=== PATIENT | male | born 1980 | race Caucasian/White ===

== ENCOUNTER 2024-09-24 16:20 | Emergency (ER) | payer BC, OTHER, SELFPAY ==
--- NOTE | ~2024-09-24 | CT_ITS ---
CT abdomen pelvis w con Ordering provider: Anna Lemus PA-C History: 44 years Male with . epigastric pain . Comparison: None. Technique: CT abdomen and pelvis with IV and without oral contrast. Automated exposure control and it erative reconstruction technique were employed. The dose-length product was 410.40 mGy-cm. 100 mL Omn ipaque 350 was given IV. Findings: VISUALIZED LOWER CHEST: Tiny nodule near to the oblique fissure is seen in the left lung base measuri ng 4 mm. 6 months follow-up CT is advised. UPPER ABDOMINAL ORGANS: Liver: Cyst is seen in the right lobe measuring 2.8x 2.3 cm. Mild fat infiltration. Gallbladder: Status post cholecystectomy. Spleen: Normal. Measures 14.5 cm. Stomach/duodenum: Slight thickening of the wall of the third parts of the duodenum. Fat stranding als o seen between the head of the pancreas and the with RIYA none. Pancreas: Fat stranding is seen around the body and tail with fluid seen anterior to the Gerota fasci a suggestive of pancreatitis. Adrenals: Normal. Kidneys: Normal. PELVIC ORGANS: The bladder is normal. BOWEL AND MESENTERY: Colon: No evidence of diverticulitis. Normal appendix. Small Bowel: Slightly dilated jejunal bowel loops is noted otherwise, No obstruction. Peritoneum/mesentery: No free air. Minimal Free fluid around the Gerota fascia. No mesenteric lymphad enopathy. RETROPERITONEUM: Normal aorta. No retroperitoneal lymphadenopathy. MUSCULOSKELETAL: Superficial soft tissues: The superficial soft tissues are normal. Bones: Normal spine. IMPRESSION: 1. Acute Pancreatitis. Slight thickening of the wall of the duodenum with focal ileus in the proxima l jejunal loops is seen. 2. Cyst in the right lobe of the liver. 3. Nodule in the left lower lobe of the lung. Follow-up CT is advised at 6 months. Reviewed, dictated and finalized at location A. NG CLERK IMPRESSION: 1. Acute Pancreatitis. Slight thickening of the wall of the duodenum with foca l ileus in the proximal jejunal loops is seen. 2. Cyst in the right lobe of the liver. 3. Nodule in the left lower lobe of the lung. Follow-up CT is advised at 6 mon ths.
[2024-09-24 17:01] VITALS: BP 145/88; PULSE 128; RESP 18; TEMP 36.1; O2SAT 99
--- NOTE | 2024-09-24 18:30 | ED_ITS ---
HPI - Abdominal Pain General Chief Complaint: Abdominal Pain <DANI Harp Last Filed: 09/24/24 18:36> Stated Complaint: abdominal pain <DANI Harp Last Filed: 09/24/24 18:36> Time Seen by Provider: 09/24/24 18:30 <DANI Harp Last Filed: 09/24/24 18:36> Focused HPI: Patient is a 44-year-old male who presents the ED with report of epigastric abdominal pain. Patient reports pain has been constant over the last 1 week. He states he was treated for a migraine in a outside hospital last week and is unsure if this was related to the medicines that they gave him. He has had intermittent nausea and vomiting associated with this pain. He did try a leftover hydrocodone from a previous surgery which improved the pain. He intermittently takes pantoprazole for acid reflux, but tried this with this pain and denied improvement. He does note that his father this year from an ulcer. Patient denies any diarrhea, constipation, chest pain, shortness of breath, rectal bleeding, melena, fevers. GENERAL: Well-appearing, well-nourished, and in no acute distress. HEAD: Normocephalic, atraumatic. CHEST: Clear to auscultation. ?No respiratory distress. HEART: Regular rate and rhythm.? ABD: Mild TTP in epigastric/LUQ, no rebound. Normoactive BS NEURO: ?Alert and oriented x3. Patient screened in triage and initial orders placed.? ?Additional care and disposition to be based upon?diagnostic testing and treatment. <DANI Harp Last Filed: 09/24/24 18:36> Source: patient <DANI Harp Last Filed: 09/24/24 18:36> Mode of arrival: ambulatory <DANI Harp Last Filed: 09/24/24 18:36> Limitations: no limitations <DANI Harp Last Filed: 09/24/24 18:36> Related Data Allergies/Adverse Reactions: Allergies Allergy/AdvReac Type Severity Reaction Status Date / Time No Known Allergies Allergy Verified 09/24/24 16:21 <Anna Lemus PA-C - Last Filed: 09/24/24 18:36> Exam 2 Narrative: APPEARANCE: No apparent distress. well-appearing Head: atraumatic. EYES: EOMI, NOSE: Atraumatic NECK: Trachea midline RESPIRATORY: No increased rate of breathing clear to auscultation CARDIOVASCULAR: Tachycardic ABDOMINAL: Mild tenderness in the epigastric area without rebound MUSCULOSKELETAl: No obvious deformities NEURO: Alert. Moving 4/4 extremities SKIN:: Warm, dry. Normal color PSYCHIATRIC: Normal affect <Nii Arizmendi MD - Last Filed: 09/25/24 03:04> Course Vital Signs Vital signs: Vital Signs Temperature 97.0 F L 09/24/24 17:01 Pulse Rate 128 H 09/24/24 17:01 Respiratory Rate 18 09/24/24 17:01 Blood Pressure 145/88 H 09/24/24 17:01 Pulse Oximetry 99 09/24/24 17:01 Temperature 97.6 F 09/24/24 18:53 Pulse Rate 116 H 09/25/24 02:15 Respiratory Rate 15 09/25/24 02:15 Blood Pressure 136/78 09/25/24 02:15 Pulse Oximetry 100 09/25/24 02:15 <Anna Lemus PA-C - Last Filed: 09/24/24 18:36> Vital Signs Temperature 97.0 F L 09/24/24 17:01 Pulse Rate 128 H 09/24/24 17:01 Respiratory Rate 18 09/24/24 17:01 Blood Pressure 145/88 H 09/24/24 17:01 Pulse Oximetry 99 09/24/24 17:01 Temperature 97.6 F 09/24/24 18:53 Pulse Rate 116 H 09/25/24 02:15 Respiratory Rate 15 09/25/24 02:15 Blood Pressure 136/78 09/25/24 02:15 Pulse Oximetry 100 09/25/24 02:15 <Nii Arizmendi MD - Last Filed: 09/25/24 03:04> MDM - Abdominal Pain MDM Narrative Medical decision making narrative: MSE by EDWIN in triage. <DANI Harp Last Filed: 09/24/24 18:36> MSE by EDWIN in triage. -Course: 44-year-old male presenting with 1 week of abdominal pain. Patient's workup significant for pancreatitis. Patient was tachycardic on arrival and fluid resuscitation/pain control mild improvement. Patient states that he is always tachycardic around 120 and verified this on his applewatch. White count also elevated at 19. Patient was recently started on Farxiga which is associated with pancreatitis and he has had pancreatitis past that was associated with hypertriglyceridemia. I recommended admission and the patient has declined. 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 I spoke with patient length regards my concerns about his abnormal vital signs and laboratory studies. The patient states he understands but was not concerned because he was feeling better. He says that if he gets worse he will come back. Risks were explained patient encouraged him to return to the ED as soon as possible for further workup of his pancreatitis. Patient voices understanding and is leaving against medical advice. patient says he will follow-up with his primary care physician -DDX includes but is not limited to: Pancreatitis, gastritis, peptic ulcer disease -Co-morbidities complicating care: diabetes, migraines, pancreatitis -Independent interpretation of studies: white count 19, lipase 1900, CT with evidence of acute pancreatitis Independent EKG interpretation: Rhythm [sinus], Rate [122], [place] -[normal], MA -[normal], QRS [narrow], QTC [normal], T waves -[negative for concerning inversions], ST Segments - [Negative for concerning elevations] Final interpretations: sinus tachycardia -Interventions: 1mg Dilaudid, 3 L normal saline -Shared decision making / Disposition: against medical advice -RX Tylenol, oxycodone <Nii Arizmendi MD - Last Filed: 09/25/24 03:04> Lab Data Result diagrams: 09/24/24 18:55 09/24/24 22:07 <Anna Lemus PA-C - Last Filed: 09/24/24 18:36> Labs: Lab Results 09/24/24 09/24/24 09/24/24 Range/Units 18:55 19:02 22:07 WBC 19.7 H (4.5-10.0) K/mm3 RBC 4.55 L (4.6-6.20) M/mm3 Hgb 14.0 (14.0-18.0) g/dL Hct 38.5 L (42.0-52.0) % MCV 84.6 (80-100) fl MCH 30.8 (26-34) pg MCHC 36.4 H (32-36) g/dl RDW 14.3 (11.5-14.5) % Plt Count 278 (150-375) k/mm3 MPV 9.7 (7.4-10.4) fl Immature Gran % (Auto) 0.7 H (0-0.5) % Neut % (Auto) 83.5 H (45.5-73.1) % Lymph % (Auto) 6.5 L (18.3-44.2) % [place] % (Auto) 8.2 (2.6-8.5) % Eos % (Auto) 0.6 (0-4.4) % Baso % (Auto) 0.5 (0.2-1.2) % Lymph # (Auto) 1.28 (0.9-3.2) K/mm3 [place] # (Auto) 1.6 H (0.1-0.6) K/mm3 Eos # (Auto) 0.1 (0-0.3) K/mm3 Baso # (Auto) 0.1 (0.0-0.1) K/mm3 Abs Immat Gran (auto) 0.13 H (0.00-0.031) K/mm3 Absolute Neuts (auto) 16.5 H (1.3-6.7) K/mm3 Absolute Nucleated RBC 0.000 (0.0-0.012) K/mm3 Nucleated RBC % 0.0 (0.0-0.2) % Sodium 133 L (137-145) mmol/L Potassium 4.3 (3.4-5.0) mmol/L Chloride 100 (98-107) mmol/L Carbon Dioxide 19 L (22-30) mmol/L Anion Gap 14 H (4-12) mmol/L BUN 10 (9-20) mg/dL Creatinine 0.60 L (0.7-1.3) mg/dL Estim Creat Clear Calc 126 ml/min Estimated GFR > 60 (59 - ) Glucose 101 (65-110) mg/dL Calcium 9.4 (8.4-10.2) mg/dL Total Bilirubin 1.5 H (0.2-1.3) mg/dL AST 48 (17-59) U/L ALT 22 (6-50) U/L Alkaline Phosphatase 68 (38-126) U/L Troponin I < 0.012 (0.000-0.034) ng/mL Total Protein 9.0 H (6.3-8.2) g/dL Albumin 3.8 (3.5-5.1) g/dL Lipase 1899 H (23-300) U/L Urine Color Yellow (Yellow) Urine Appearance Clear (Clear) Urine pH 5.5 (5.0-9.0) Ur Specific [place] 1.038 H (1.001-1.035) Urine Protein 2+ H (Negative) mg/dL Urine Glucose (UA) 3+ H (Negative) mg/dL Urine Ketones 2+ H (Negative) mg/dL Ur Blood (Man) 1+ H (Negative) Urine Nitrate Negative (Negative) Urine Bilirubin Negative (Negative) Urine Urobilinogen 1.0 (<2.0) mg/dL Leukocyte Esterase Rfl Negative (Negative) JOHANNA/UL Urine RBC 0-2 (0-2) /hpf Urine WBC 0-5 (0-3) /hpf Ur Squamous Epith Cells None seen (Few) /hpf Urine Bacteria None seen /hpf Urine Casts 3-5 <Anna Lemus PA-C - Last Filed: 09/24/24 18:36> Lab Results 09/24/24 09/24/24 09/24/24 Range/Units 18:55 19:02 22:07 WBC 19.7 H (4.5-10.0) K/mm3 RBC 4.55 L (4.6-6.20) M/mm3 Hgb 14.0 (14.0-18.0) g/dL Hct 38.5 L (42.0-52.0) % MCV 84.6 (80-100) fl MCH 30.8 (26-34) pg MCHC 36.4 H (32-36) g/dl RDW 14.3 (11.5-14.5) % Plt Count 278 (150-375) k/mm3 MPV 9.7 (7.4-10.4) fl Immature Gran % (Auto) 0.7 H (0-0.5) % Neut % (Auto) 83.5 H (45.5-73.1) % Lymph % (Auto) 6.5 L (18.3-44.2) % [place] % (Auto) 8.2 (2.6-8.5) % Eos % (Auto) 0.6 (0-4.4) % Baso % (Auto) 0.5 (0.2-1.2) % Lymph # (Auto) 1.28 (0.9-3.2) K/mm3 [place] # (Auto) 1.6 H (0.1-0.6) K/mm3 Eos # (Auto) 0.1 (0-0.3) K/mm3 Baso # (Auto) 0.1 (0.0-0.1) K/mm3 Abs Immat Gran (auto) 0.13 H (0.00-0.031) K/mm3 Absolute Neuts (auto) 16.5 H (1.3-6.7) K/mm3 Absolute Nucleated RBC 0.000 (0.0-0.012) K/mm3 Nucleated RBC % 0.0 (0.0-0.2) % Sodium 133 L (137-145) mmol/L Potassium 4.3 (3.4-5.0) mmol/L Chloride 100 (98-107) mmol/L Carbon Dioxide 19 L (22-30) mmol/L Anion Gap 14 H (4-12) mmol/L BUN 10 (9-20) mg/dL Creatinine 0.60 L (0.7-1.3) mg/dL Estim Creat Clear Calc 126 ml/min Estimated GFR > 60 (59 - ) Glucose 101 (65-110) mg/dL Calcium 9.4 (8.4-10.2) mg/dL Total Bilirubin 1.5 H (0.2-1.3) mg/dL AST 48 (17-59) U/L ALT 22 (6-50) U/L Alkaline Phosphatase 68 (38-126) U/L Troponin I < 0.012 (0.000-0.034) ng/mL Total Protein 9.0 H (6.3-8.2) g/dL Albumin 3.8 (3.5-5.1) g/dL Lipase 1899 H (23-300) U/L Urine Color Yellow (Yellow) Urine Appearance Clear (Clear) Urine pH 5.5 (5.0-9.0) Ur Specific [place] 1.038 H (1.001-1.035) Urine Protein 2+ H (Negative) mg/dL Urine Glucose (UA) 3+ H (Negative) mg/dL Urine Ketones 2+ H (Negative) mg/dL Ur Blood (Man) 1+ H (Negative) Urine Nitrate Negative (Negative) Urine Bilirubin Negative (Negative) Urine Urobilinogen 1.0 (<2.0) mg/dL Leukocyte Esterase Rfl Negative (Negative) JOHANNA/UL Urine RBC 0-2 (0-2) /hpf Urine WBC 0-5 (0-3) /hpf Ur Squamous Epith Cells None seen (Few) /hpf Urine Bacteria None seen /hpf Urine Casts 3-5 <Nii Arizmendi MD - Last Filed: 09/25/24 03:04> Imaging Data Radiologist's impression: ITS Impressions Abdomen/Pelvis CT 09/24/24 23:31 IMPRESSION: 1. Acute Pancreatitis. Slight thickening of the wall of the duodenum with focal ileus in the proximal jejunal loops is seen. 2. Cyst in the right lobe of the liver. 3. Nodule in the left lower lobe of the lung. Follow-up CT is advised at 6 months. <Anna Lemus PA-C - Last Filed: 09/24/24 18:36> ITS Impressions Abdomen/Pelvis CT 09/24/24 23:31 IMPRESSION: 1. Acute Pancreatitis. Slight thickening of the wall of the duodenum with focal ileus in the proximal jejunal loops is seen. 2. Cyst in the right lobe of the liver. 3. Nodule in the left lower lobe of the lung. Follow-up CT is advised at 6 months. <Nii Arizmendi MD - Last Filed: 09/25/24 03:04> Discharge Plan Discharge Clinical Impression: Pancreatitis, Leukocytosis <DANI Harp Last Filed: 09/24/24 18:36> Patient Disposition: Left Against Medical Advice <Anna Lemus PA-C - Last Filed: 09/24/24 18:36> Condition: Stable <Anna Lemus PA-C - Last Filed: 09/24/24 18:36> Instructions: Antibiotic Form, Pancreatitis (ED) <Anna Lemus PA-C - Last Filed: 09/24/24 18:36> Additional Instructions: You were seen in the emergency department for abdominal pain. You have pancreatitis. I recommended admission to the hospital but due to your work situation you have declined admission. You can take oxycodone for pain and Zofran for nausea. If your pain is worsening it is very important that you come back to the ED immediately. I would encourage you to return to the ED for admission as soon as possible for further workup of your pancreatitis. <Anna Lemus PA-C - Last Filed: 09/24/24 18:36> Patient Language: Indonesian <Anna Lemus PA-C - Last Filed: 09/24/24 18:36> Prescriptions: New acetaminophen 500 mg tablet 1,000 mg PO TID PRN (Reason: christopher) 7 Days Qty: 42 0RF ondansetron 4 mg tablet,disintegrating 4 mg PO Q8H PRN (Reason: nausea and vomiting) Qty: 30 0RF oxycodone 5 mg tablet 5 mg PO Q4H PRN (Reason: pain) Qty: 14 0RF <Anna Lemus PA-C - Last Filed: 09/24/24 18:36> Follow-up/Referrals: Saige,Preston Berumen PA-C [Primary Care Provider] - <Anna Lemus PA-C - Last Filed: 09/24/24 18:36>
--- NOTE | 2024-09-24 18:32 | ECG_ITS ---
Test Date: 2024-09-24 18:46:55 Measurements Intervals [place] Rate: 122 P: 36 MD: 167 QRS: 6 QRSD: 72 T: 32 QT: 297 QTc: 423 Interpretive Statements SINUS TACHYCARDIA NONSPECIFIC ST & T-WAVE ABNORMALITY ABNORMAL RHYTHM ECG No previous ECG available for comparison Electronically Signed On 09-25-2024 22:55:28 COURTESY BUS DRIVER by Odalys Mcfarlane M.D.
[2024-09-24 18:53] VITALS: BP 156/99; PULSE 125; RESP 18; TEMP 36.4; O2SAT 99
[2024-09-24] MEDS: FAMOTIDINE 20 MG/2 ML VIAL IV PUSH (18:53)
[2024-09-24] MEDS: BELLADONNA ALK/PHENOB ELIX 10 ML, MAG HYDROX/ALUMINUM HYD/SIMETH 30 ML, LIDOCAINE 2% VI... PO (18:53)
[2024-09-24 19:18] LABS: Basophils Absolute Auto 0.1 K/mm3 (0.0-0.1); Basophils Percent Auto 0.5 % (0.2-1.2); Eosinophils Absolute Auto 0.1 K/mm3 (0-0.3); Eosinophils Percent Auto 0.6 % (0-4.4); Hematocrit 38.5 % (42.0-52.0); Immature Granulocyte Absolute 0.13 K/mm3 (0.00-0.031); Immature Granulocyte Percent A 0.7 % (0-0.5); Lymphocytes Absolute Auto 1.28 K/mm3 (0.9-3.2); Lymphocytes Percent Auto 6.5 % (18.3-44.2); Mean Corpuscular HGB Conc 36.4 g/dl (32-36); Mean Corpuscular Hemoglobin 30.8 pg (26-34); Mean Corpuscular Volume 84.6 fl (80-100); Mean Platelet Volume 9.7 fl (7.4-10.4); Monocytes Absolute Auto 1.6 K/mm3 (0.1-0.6); Monocytes Percent Auto 8.2 % (2.6-8.5); Neutrophils Absolute Auto 16.5 K/mm3 (1.3-6.7); Neutrophils Percent Auto 83.5 % (45.5-73.1); Platelet Count Result 278 k/mm3 (150-375); Red Blood Count 4.55 M/mm3 (4.6-6.20); Red Cell Distribution Width 14.3 % (11.5-14.5); White Blood Count 19.7 K/mm3 (4.5-10.0)
[2024-09-24 19:43] LABS: Troponin I < 0.012 ng/mL (0.000-0.034)
[2024-09-24 20:06] LABS: Add Urine Microscopic? YES; Appearance Urine Clear (Clear); Bacteria Urine None Seen /hpf; Bilirubin Urine Negative (Negative); Blood Urine 1+ (Negative); Color Urine Yellow (Yellow); Glucose Urine UA 3+ mg/dL (Negative); Ketones Urine 2+ mg/dL (Negative); Leukocyte Esterase Ur Negative LEU/UL (Negative); Nitrate Urine Negative (Negative); Protein Urine 2+ mg/dL (Negative); RBC Urine 0-2 /hpf (0-2); Specific Grav Ur 1.038 (1.001-1.035); Squamous Epithelial Cell Urine None Seen /hpf (Few); WBC Urine 0-5 /hpf (0-3); pH Urine 5.5 (5.0-9.0)
[2024-09-24 22:59] LABS: Alanine Aminotransferase 22 U/L (6-50); Albumin Level 3.8 g/dL (3.5-5.1); Alkaline Phosphatase 68 U/L (38-126); Anion Gap 14 mmol/L (4-12); Aspartate Amino Transferase 48 U/L (17-59); Bilirubin,Total 1.5 mg/dL (0.2-1.3); Blood Urea Nitrogen 10 mg/dL (9-20); Calcium 9.4 mg/dL (8.4-10.2); Carbon Dioxide 19 mmol/L (22-30); Chloride 100 mmol/L (98-107); Estimated CRCL calculation 126 ml/min; Estimated Glomerular Filt Rate > 60; Glucose 101 mg/dL (65-110); Potassium 4.3 mmol/L (3.4-5.0)
[2024-09-24 23:01] LABS: Sodium 133 mmol/L (137-145)
[2024-09-24 23:04] LABS: Lipase 1899 U/L (23-300)
[2024-09-25] MEDS: SODIUM CHLORIDE 0.9% IV 3,000 ML 999 ML IV CONT (02:10)
[2024-09-25] MEDS: HYDROmorphone HCL INJ (*CRX) 1 MG/ML SYR IV PUSH (02:11)
[2024-09-25 02:15] VITALS: BP 136/78; PULSE 116; RESP 15; O2SAT 100
[2024-09-25 03:14] VITALS: BP 128/78; PULSE 121; RESP 15; O2SAT 100
--- OUTSIDE RECORDS SUMMARY | 2024-10-02 02:32 | XMS_ITS | Encounter Summary ---
Author Organization [facility] Address [address] [place] [address] Care Team Providers Care Air Carrier Inspector Name Role Phone Darius Meyer MD Primary Care Provider [phone] Reason for Visit * Reason Comments Anxiety Encounter Details Date Type Department Care Team (Latest Contact Info) Description 03/12/2021 10:00 AM CDT Office Visit [facility] Medical [facility] - Family Medicine [address] [place] [id number] Darius Meyer MD [address] [place] [id number] Palpitations (Primary Dx); Dyslipidemia; Elevated triglycerides with high cholesterol; Snoring Social History Tobacco Use Types Packs/Day Years Used Date Smoking Tobacco: Never Smokeless Tobacco: Former Quit: 03/05/2018 Alcohol Use Standard Drinks/Week Comments Not Currently 0 (1 standard drink = 0.6 oz pur e alcohol) rarely PHQ-2 Answer Date Recorded PHQ2 TOTAL SCORE 3 03/12/2021 Sex and Gender Information Value Date Recorded Sex Assigned at Male 10/10/2021 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 No / Unsure 03/11/2021 8:15 AM CDT documented as of this encounter Last Filed Vital Signs Vital Sign Reading Time Taken Comments Blood Pressure 128/87 03/12/2021 9:59 AM CDT Pulse 90 03/12/2021 9:59 AM CDT Temperature 36.9 ??C (98.4 ??F) 03/12/2021 9:59 AM CD T Respiratory Rate - - Oxygen Saturation 97% 03/12/2021 9:59 AM CDT Inhaled Oxygen Concentration - - Weight 74.8 kg (165 lb) 03/12/2021 9:59 AM CDT Height 172.7 cm (5' 8 ) 03/12/2021 9:59 AM CDT Body Mass Index 25.09 03/12/2021 9:59 AM CDT documented in this encounter Progress Notes * Draius Meyer MD - 03/12/2021 10:05 AM CDT Date: 03/12/2021 Pt Name: Chadwick Holcomb : 1980 AGE: [id number] year old SEX: male SUBJECTIVE: Chief Complaint Patient presents with ??? Anxiety History of Present Illness:Chadwick Holcomb 40 year old male presents to clinic today : For follow-up. He states he is much better PHQ has improved as well. Patient's labs were discussed especially the triglycerides. The patient states eating greasy tacos the night before the test The patient admits that he snores at night but denies any apneic events or excessive sleepiness during the day however was interested in getting an ENT evaluation for possible tolerated tonsillar enlargement as he sometimes chokes on water and food but happens infrequently Patient states that sometimes he has palpitations which are not bothersome but wanted to have his heart checked No Known Allergies No outpatient medications prior to visit. No facility-administered medications prior to visit. No past medical history on file. No past surgical history on file. Family History Problem Relation Name Age of Onset ??? Cancer - Breast Mother ??? Diabetes; unknown type Mother ??? Alcohol abuse Father ??? Hypertension Brother Social History Socioeconomic History ??? Marital status: Single Spouse name: Not on file ??? Number of children: Not on file ??? Years of education: Not on file ??? Highest education level: Not on file Occupational History ??? Not on file Tobacco Use ??? Smoking status: Never Smoker ??? Smokeless tobacco: Former User Vaping Use ??? Vaping Use: Never used Substance and Sexual Activity ??? Alcohol use: Not Currently Comment: rarely ??? Drug use: Never ??? Sexual activity: Not on file Other Topics Concern ??? Not on file Social History Narrative ??? Not on file ROS: Pertinent items are noted in HPI Review of Systems Respiratory: Negative. Cardiovascular: Positive for palpitations. Gastrointestinal: Negative. Psychiatric/Behavioral: Positive for depression. The patient is nervous/anxious and has insomnia. OBJECTIVE: BP 128/87 Pulse 90 Temp 98.4 ??F (36.9 ??C) (Temporal) Ht 1.727 m (5' 8 ) Wt 74.8 kg (165 lb) SpO2 97% BMI 25.09 kg/m?? PHYSICAL EXAM: BP 128/87 Pulse 90 Temp 98.4 ??F (36.9 ??C) (Temporal) Ht 1.727 m (5' 8 ) Wt 74.8 kg (165 lb) SpO2 97% BMI 25.09 kg/m2 Physical Exam Constitutional: Comments: Patient has class 3 Mallampati scoring Cardiovascular: Rate and Rhythm: Normal rate and regular rhythm. Pulmonary: Effort: Pulmonary effort is normal. Breath sounds: Normal breath sounds. Abdominal: General: Abdomen is flat. There is no distension. Palpations: Abdomen is soft. There is no mass. Tenderness: There is no abdominal tenderness. There is no right CVA tenderness, left CVA tenderness, guarding or rebound. Hernia: No hernia is present. ASSESSMENT/PLAN ICD-10-CM 1. Palpitations R00.2 EKG 12-LEAD 2. Dyslipidemia E78.5 LIPID PROFILE 3. Elevated triglycerides with high cholesterol E78.2 LIPID PROFILE 4. Snoring R06.83 AMB REFERRAL TO ENT Results discussed with the patient in person. He admits to eating greasy food the day before the test. Side effect of elevated triglycerides such as pancreatitis discussed with the patient. Starting gemfibrozil verses repeating the lipid test discussed with the patient. it was agreed that given thepatient does not have any history of pancreatitis, does not have any epigastric pain currently, is not an alcoholic, he is at low risk for pancreatitis. Will repeat that blood test and if triglycerides continue to be above 800, will prescribe gemfibrozil, as agreed upon by the patient. PLAN: Orders Placed This Encounter ??? LIPID PROFILE ??? AMB REFERRAL TO ENT ??? EKG 12-LEAD Return if symptoms worsen or fail to improve. Darius Meyer MD Time spent with patient was about 50 minutes documented in this encounter Miscellaneous Notes * Addendum Note - Darius Meyer MD - 03/19/2021 10:37 AM CDTAddended by: DARIUS MEYER on: 03/19/2021 10:37 AM Modules accepted: Level of Service * Addendum Note - Darius Myeer MD - 03/18/2021 9:11 AM CDTAddended by: DARIUS MEYER on: 03/18/2021 09:11 AM Modules accepted: Level of Service documented in this encounter Plan of Treatment Not on file documented as of this encounter Visit Diagnoses Diagnosis Palpitations- Primary Dyslipidemia Other and unspecified hyperlipidemia Elevated triglycerides with high cholesterol Mixed hyperlipidemia Snoring Other dyspnea and respiratory abnormality documented in this encounter Care Teams Air Carrier Inspector Relationship Specialty Start Date End Date Darius Meyer MD [address] [place] [address] PCP - General Internal Medicine 03/05/21 documented as of this encounter
--- OUTSIDE RECORDS SUMMARY | 2024-10-02 02:32 | XMS_ITS | Encounter Summary ---
Author Organization [facility] Address [address] [place] [address] Care Team Providers Care Machine Operator Hop Picker Name Role Phone Unavailable Primary Care Provider Unavailabl e Encounter Details Date Type Department Care Team (Late st Contact Info) Description 03/04/2021 9:40 AM CDT Ancillary Procedure [facility] [address] [place] [phone] Jean Carlos Hensley PA [address] Cantrell Attn: [place] [address] Elevated blood pressure reading without diagnosis of hypertension Social History Tobacco Use Types Packs/Day Years Used Date Smoking Tobacco: Never Smokeless Tobacco: Never Alcohol Use Standard Drinks/Week Comments Not Currently 0 (1 standard drink = 0.6 oz pur e alcohol) Sex and Gender Information Value Date Recorded Sex Assigned at Male 10/10/2021 1:14 AM SYRUP BLENDER Gender Identity Male 10/10/2021 1:14 AM SYRUP BLENDER Sexual Orientation Not on file COVID-19 Exposure Response Date Recorded In the last month, have you been in contact with someone who was confirmed or suspected to have Coronavirus / COVID-19? No / Unsure 03/04/2021 9:03 AM CDT documented as of this encounter Plan of Treatment Not on file documented as of this encounter Procedures Procedure Name Priority Date/Time Associated Diagnosis Comments XR CHEST 2VW Routine 03/04/2021 9:48 AM CDT Elevated blood pressure reading without diagnosis of hypertension documented in this encounter Results * XR CHEST 2 VWS PA [place] LAT [id number] (03/04/2021 9:48 AM CDT) Anatomical Region Laterality Modality Chest Radiographic Marcie ging 03/04/2021 9:5 6 AM CDT Impressions 03/04/2021 9:56 AM CDT The chest is within normal limits. *Reading Radiologist: Saba Nunez on 03/04/2021 at 9:56 AM Narrative 03/04/2021 9:56 AM CDT PROCEDURE: XR CHEST 2VW ??03/04/2021 9:56 AM FINDINGS AND IMPRESSION: HISTORY: Elevated blood-pressure reading, without diagnosis of hypertension. COMPARISON: 02/21/2009. FINDINGS: Two views of the chest show no evidence of pulmonary disease. The heart and mediastinum are within normal limits. The diaphragms are smooth and the costophrenic angles are clear. The lungs are radiographically clear. Bony thorax is normal. Procedure Note Saba Nunez MD - 03/04/2021 PROCEDURE: XR CHEST 2VW 03/04/2021 9:56 AM FINDINGS AND IMPRESSION: HISTORY: Elevated blood-pressure reading, without diagnosis of hypertension. COMPARISON: 02/21/2009. FINDINGS: Two views of the chest show no evidence of pulmonary disease. The heart and mediastinum are within normal limits. The diaphragms are smooth and the costophrenic angles are clear. The lungs are radiographically clear. Bony thorax is normal. IMPRESSION The chest is within normal limits. *Reading Radiologist: Saba Nunez on 03/04/2021 at 9:56 AM [facility] documented in this encounter Visit Diagnoses Diagnosis Elevated blood pressure reading without diagnosis of hypertension documented in this encounter
--- OUTSIDE RECORDS SUMMARY | 2024-10-02 02:32 | XMS_ITS | Encounter Summary ---
Author Organization [facility] Health Address [address] [place] [address] Care Team Providers Care Tour Coordinator Name Role Phone Unavailable Primary Care Provider Unavailabl e Encounter Details Date Type Department Care Team (Latest Contact Info) Description 03/04/2021 Travel Social History Tobacco Use Types Packs/Day Years Used Date Smoking Tobacco: Never Smokeless Tobacco: Never Alcohol Use Standard Drinks/Week Comments Not Currently 0 (1 standard drink = 0.6 oz pur e alcohol) Sex and Gender Information Value Date Recorded Sex Assigned at Male 10/10/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 No / Unsure 03/04/2021 9:03 AM CDT documented as of this encounter Plan of Treatment Not on file documented as of this encounter Visit Diagnoses Not on filedocumented in this encounter
--- OUTSIDE RECORDS SUMMARY | 2024-10-02 02:32 | XMS_ITS | Encounter Summary ---
Author Organization [facility] Address [address] [place] [address] Care Team Providers Care Electronics Detail Draftsperson Name Role Phone Nenita Sexton MD Primary Care Provider [phone] Encounter Details Date Type Department Care Team (Latest Contact Info) Description 03/11/2021 8:15 AM CDT - 03/11/2021 11:59 PM CDT Hospital Encounter [facility] - Laboratory [address] [place] [address] [phone] Nenita Sexton MD [address] [place], [place] [phone] Discharge Disposition: Home or Self Care Social History Tobacco Use Types Packs/Day Years Used Date Smoking Tobacco: Never Smokeless Tobacco: Former Quit: 03/05/2018 Alcohol Use Standard Drinks/Week Comments Not Currently 0 (1 standard drink = 0.6 oz pur e alcohol) rarely PHQ-2 Answer Date Recorded PHQ2 TOTAL SCORE 3 03/12/2021 Sex and Gender Information Value Date Recorded Sex Assigned at Male 10/10/2021 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 No / Unsure 03/11/2021 8:15 AM CDT documented as of this encounter Progress Notes * Nenita Sexton MD - 03/11/2021 11:59 PM CDT Results discussed with the patient in person. He admits to eating greasy food yesterday. Side effect of elevated triglycerides such as pancreatitis discussed with the patient. Starting gemfibrozil verses repeating the lipid test discussed with the patient. it was agreed that given the patient does not have any history of pancreatitis, does not have any epigastric pain currently, is not an alcoholi c, he is at low risk for pancreatitis. Will repeat that blood test and if triglycerides continue prakash above 800, will prescribe gemfibrozil, as agreed upon by the patient. documented in this encounter Plan of Treatment Not on file documented as of this encounter Procedures Procedure Name Priority Date/Time Associated Diagnosis Comments HEMOGLOBIN A1C Routine 03/11/2021 8:16 AM CDT Elevated glucose LIPID PROFILE Routine 03/11/2021 8:16 AM CDT Elevated glucose documented in this encounter Results * HEMOGLOBIN A1C (03/11/2021 8:16 AM CDT) Hemoglobin A1c 5.2 4.2 - 5.6 % 03/11/2021 1:10 PM CDT [facility] Estimated Average Glucose 103 mg/dL 03/11/2021 1:10 PM CDT [facility] Blood BLOOD SPECIMEN WITH EDTA / Unknown Venipuncture / Unknown 03/11/2021 8:16 AM CDT 03/11/2021 8:16 AM CDT Narrative [facility] - 03/11/2021 1:10 PM CDT The following cutoff levels are recommended by [place] [employer]. ?? A1c ??> 6.5% : considered as diabetes if two separate tests >6.5% or in an appropriate clinical setting. A1c ??5.7% - 6.4% : considered as prediabetes (suggest increased risk for diabetes and cardiovascular disease) Control target level: ??Should be individualized. ??< 7 ??for general (non- ) , ??< 8% less stringent goal, ??< 6.5 ??more stringent goal. Hemoglobin A1c measurements are used as an aid in the diagnosis of diabetic mellitus, as an aid to identify patients who may be at the risk for developing diabetic mellitus, and for the monitoring long-term blood glucose control in individuals with diabetes mellitus. ??This test should not replace glucose testing for patients with Type 1 diabetes, pediatric patients, or women. ??Falsely low HbA1c results may be observed in patients with clinical conditions that shorten erythrocyte life span or decrease mean erythrocyte age such as the presence of unstable hemoglobin variants, elevated hemoglobin F level ??or other causes of hemolytic anemia . ??HbA1c may not accurately reflect glycemic control when clinical conditions that affect erythrocyte survival are present. ??Severe Iron deficiency anemia may yield falsely high results. ??Hemoglobin A1c assay should not be used to diagnose or monitor diabetes in patients with malignancy, recent blood transfusion, chronic kidney or liver disease. ?? This method may yield falsely low results when hemoglobin (HbF) exceeds 5% in the specimen. Nenita Sexton MD LAB - CHEMISTRY [facility] Organization Address City/State/[facility] de Phone Number [facility] [address] * (ABNORMAL) LIPID PROFILE (03/11/2021 8:16 AM CDT) [facility] Cholesterol 234(H) <200 mg/dL 03/11/2021 1:10 PM CDT [facility] Triglycerides 1,035(H) <150 mg/dL 03/11/2021 1:10 PM CDT [facility] HDL Cholesterol 29(L) >40 mg/dL 1 1:10 PM CDT [facility] Chol HDL Ratio 8.1(H) 1.0 - 6.0 03/11/2021 1:10 PM CDT [facility] LDL Calculated 03/11/2021 1:10 PM CDT [facility] Comment:Not Calculated due t o Triglyceride >400 mg/dL. VLDL Calculated 1:10 PM CDT [facility] Comment:Not Calculated due t o Triglyceride >400 mg/dL. Blood BLOOD SPECIMEN / Unknown Venipuncture / Unknown 03/11/2021 8:16 AM CDT 03/11/2021 8:16 AM CDT Narrative [facility] - 03/11/2021 1:10 PM CDT Lipid Profile Comment: CHOLESTEROL LEVEL..................CLINICAL INTERPRETATION LESS THAN 200 MG/DL..............................DESIRABLE 200-239 MG/DL..............................BORDERLINE HIGH GREATER THAN 240 MG/DL................................HIGH LDL-CHOLESTEROL LEVEL..............CLINICAL INTERPRETATION LESS THAN 100 MG/DL................................OPTIMAL 100-129 MG/DL.................................NEAR OPTIMAL GREATER THAN 160 MG/DL...........................HIGH RISK HDL RISK LEVEL GREATER THEN 60 MG/DL............................DECREASED 40-60 MG/DL........................................AVERAGE LESS THAN 40 MG/DL...............................INCREASED TRIGLYCERIDE LEVEL..................CLINICAL INTERPRETATION LESS THAN 150 MG/DL...............................DESIRABLE 150-199 MG/DL...............................BORDERLINE HIGH 200-499 MG/DL..........................................HIGH GREATER THAN 500..................................VERY HIGH THE NATIONAL CHOLESTEROL EDUCATION PROGRAM HAS SET THE ABOVE GUIDELINES (REFERANCE VALUES) FOR CHOLESTEROL AND HDL. RISK ASSOCIATED WITH CHOLESTEROL/HDL RATIOS RISK....................MALE RATIO.............FEMALE RATIO 1/2 AVERAGE.................<3.4.......................<3.3 LOW RISK.................... 4.0 ...................... 3.8 AVERAGE..................... 5.0 ...................... 4.5 2X AVERAGE.................. 9.5 ...................... 7.0 3X AVERAGE...................>23........................>11 Nenita Sexton MD LAB - CHEMISTRY [facility] Organization Address City/State/[facility] Co de Phone Number [facility] [address] documented in this encounter Visit Diagnoses Diagnosis Elevated glucose Other abnormal glucose documented in this encounter Care Teams Electronics Detail Draftsperson Relationship Specialty Start Date End Date Nenita Sexton MD [address] [place] [address] PCP - General Internal Medicine 03/05/21 documented as of this encounter
--- OUTSIDE RECORDS SUMMARY | 2024-10-02 02:32 | XMS_ITS | Encounter Summary ---
Author Organization [facility] Address [address] [place] [address] Care Team Providers Care Personal Health Coach Name Role Phone Nenita Sexton MD Primary Care Provider [phone] Reason for Visit * Reason Onset Date Comments General 03/05/2021 Encounter Details Date Type Department Care Team (Late st Contact Info) Description 03/05/2021 Telephone [facility] - Family Medicine [address] [place] [phone] [place] [address] [place] [phone] General Social History Tobacco Use Types Packs/Day Years Used Date Smoking Tobacco: Never Smokeless Tobacco: Former Quit: 03/05/2018 Alcohol Use Standard Drinks/Week Comments Not Currently 0 (1 standard drink = 0.6 oz pur e alcohol) rarely Sex and Gender Information Value Date Recorded Sex Assigned at Male 10/10/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 No / Unsure 03/04/2021 9:03 AM CDT documented as of this encounter Miscellaneous Notes * Telephone Encounter - Nenita Sexton MD - 03/05/2021 7:18 PM CDT The patient was called and his questions regarding blood pressure were answered * Telephone Encounter - Belia Levine - 03/05/2021 1:20 PM CDT Patient called returning a call from this office. Unsure what he may have been called for so he asked for nurse to call him back. documented in this encounter Plan of Treatment Not on file documented as of this encounter Visit Diagnoses Not on filedocumented in this encounter Care Teams Personal Health Coach Relationship Specialty Start Date End Date Nenita Sexton MD [address] [place] [phone] PCP - General Internal Medicine 03/05/21 documented as of this encounter
--- OUTSIDE RECORDS SUMMARY | 2024-10-02 02:32 | XMS_ITS | Referral Summary ---
Author Organization [facility] Address [address] [address] Care Team Providers Care Electronic Organ Mechanic Name Role Phone Nenita Sexton MD Primary Care Provider [phone] Source Comments [facility],non-owned Affiliates and Associated Physician Practices is amultiple site organization consisting of ambulatory clinics and hospital sitesin [place], [place], [place] and [place]. This disclosure is being madepursuant to the Care Everywhere program and may not contain all information available regarding this patient. Last updated 18.[facility] Allergies No known active allergies Medications Be aware that medications may not be up to date on this document. Always verify current medications with the patient. No known medications Active Problems Problem Noted Date Diagnosed Date Palpitations 03/12/2021 Dyslipidemia 03/12/2021 Elevated triglycerides with high cholesterol Snoring 03/12/2021 Stress 03/05/2021 Elevated glucose 03/05/2021 Liver function abnormality 03/05/2021 Bandemia 03/05/2021 Immunizations Name Administration Dates Next Due DTP 02/08/1992, 2,06/29/1991,04/27/1991,03/26 HEP B VACCINE, ADULT 3 DOSE 05/01/2012, 1,07/19/2011 MMR 06/29/1991,04/27/1991 Measles & Rubella 04/07/1984 POLIO OPV 01/04/1992,06/29/1991,04/27/1991 ,04/07/1984 TD, HISTORIC VACCINE 09/06/2011 Social History Tobacco Use Types Packs/Day Years Used Date Smoking Tobacco: Never Smokeless Tobacco: Former Quit: 03/05/2018 Alcohol Use Standard Drinks/Week Comments Not Currently 0 (1 standard drink = 0.6 oz pur e alcohol) rarely PHQ-2 Answer Date Recorded PHQ2 TOTAL SCORE 3 03/12/2021 Sex and Gender Information Value Date Recorded Sex Assigned at Male 10/10/2021 1:14 AM AMPOULE EXAMINER Gender Identity Male 10/10/2021 1:14 AM AMPOULE EXAMINER Sexual Orientation Not on file Last Filed Vital Signs Vital Sign Reading Time Taken Comments Blood Pressure 128/87 03/12/2021 9:59 AM CDT Pulse 90 03/12/2021 9:59 AM CDT Temperature 36.9 ??C (98.4 ??F) 03/12/2021 9:59 AM CD T Respiratory Rate 18 03/04/2021 9:18 AM CDT Oxygen Saturation 97% 03/12/2021 9:59 AM CDT Inhaled Oxygen Concentration - - Weight 74.8 kg (165 lb) 03/12/2021 9:59 AM CDT Height 172.7 cm (5' 8 ) 03/12/2021 9:59 AM CDT Body Mass Index 25.09 03/12/2021 9:59 AM CDT Plan of Treatment Not on file Procedures Procedure Name Priority Date/Time Associated Diagnosis Comments HEMOGLOBIN A1C Routine 03/11/2021 8:16 AM CDT Elevated glucose LIPID PROFILE Routine 03/11/2021 8:16 AM CDT Elevated glucose from Last 3 Months or Most Recently Relevant to Health Maintenance Results * HEMOGLOBIN A1C (03/11/2021 8:16 AM CDT) Hemoglobin A1c 5.2 4.2 - 5.6 % 03/11/2021 1:10 PM CDT [facility] Estimated Average Glucose 103 mg/dL 03/11/2021 1:10 PM CDT [facility] Blood BLOOD SPECIMEN WITH EDTA / Unknown Venipuncture / Unknown 03/11/2021 8:16 AM CDT 03/11/2021 8:16 AM CDT Narrative [facility] - 03/11/2021 1:10 PM CDT The following cutoff levels are recommended by [place] [employer]. ?? A1c ??> 6.5% : [...] Sexton MD LAB - CHEMISTRY [facility] Organization Address City/[facility] Phone Number [facility] [address] * (ABNORMAL) LIPID PROFILE (03/11/2021 8:16 AM CDT) [facility] Cholesterol 234(H) <200 mg/dL 03/11/2021 1:10 PM CDT [facility] Triglycerides 1,035(H) <150 mg/dL 03/11/2021 1:10 PM CDT [facility] HDL Cholesterol 29(L) >40 mg/dL 1:10 PM CDT [facility] Chol HDL Ratio 8.1(H) 1.0 - 6.0 03/11/2021 1:10 PM CDT [facility] LDL Calculated 03/11/2021 1:10 PM CDT [facility] Comment:Not Calculated due t o Triglyceride >400 mg/dL. VLDL Calculated 1:10 PM CDT [facility] Comment:Not Calculated due t o Triglyceride >400 mg/dL. Blood BLOOD SPECIMEN / Unknown Venipuncture / Unknown 03/11/2021 8:16 AM CDT 03/11/2021 8:16 AM CDT Narrative [facility] - 03/11/2021 1:10 PM CDT Lipid [...] Sexton MD LAB - CHEMISTRY Y[facility] [address] from Last 3 Months or Most Recently Relevant to Health Maintenance Care Teams Electronic Organ Mechanic Relationship Specialty Start Date End Date Nenita Sexton MD [address] [place] [address] PCP - General Internal Medicine 03/05/21
--- OUTSIDE RECORDS SUMMARY | 2024-10-02 02:32 | XMS_ITS | Patient Health Summary ---
Author Organization [facility] [employer] Address [address] [place] [address] Care Team Providers Care Assembler [employer] Name Role Phone Nenita Sexton MD Primary Care Provider [phone] Note from [facility],non-owned Affiliates and Associated Physician Practices is amultiple site organization consisting of ambulatory clinics and hospital sitesin [place], [place], [place] and [place]. This disclosure is being madepursuant to the Care Everywhere program and may not contain all information available regarding this patient. Last updated 18.[facility] [employer] Allergies No known active allergies Medications Be aware that medications may not be up to date on this document. Always verify current medications with the patient. No known medications Active Problems Problem Noted Date Diagnosed Date Palpitations 03/12/2021 Dyslipidemia 03/12/2021 Elevated triglycerides with high cholesterol Snoring 03/12/2021 Stress 03/05/2021 Elevated glucose 03/05/2021 Liver function abnormality 03/05/2021 Bandemia 03/05/2021 Immunizations * DTP(Given 02/08/1992, 01/04/1992, 06/29/1991, 04/27/1991, 04/07/1984) * HEP B VACCINE, ADULT 3 DOSE(Given 05/01/2012, 08/23/2011, 07/19/2011) * MMR(Given 06/29/1991, 04/27/1991) * Measles & Rubella(Given 04/07/1984) * POLIO OPV(Given 01/04/1992, 06/29/1991, 04/27/1991, 04/07/1984) * TD, HISTORIC VACCINE(Given 09/06/2011) Social History Tobacco Use Types Packs/Day Years Used Date Smoking Tobacco: Never Smokeless Tobacco: Former Quit: 03/05/2018 Alcohol Use Standard Drinks/Week Comments Not Currently 0 (1 standard drink = 0.6 oz pur e alcohol) rarely PHQ-2 Answer Date Recorded PHQ2 TOTAL SCORE 3 03/12/2021 Sex and Gender Information Value Date Recorded Sex Assigned at Male 10/10/2021 1:14 AM TARGET TRIMMER Gender Identity Male 10/10/2021 1:14 AM T[employer] TRIMMER Sexual Orientation Not on file Last Filed [...] Mass Index 25.09 03/12/2021 9:59 AM CDT Procedures * HEMOGLOBIN A1C(Performed 03/11/2021) Performed for Elevated glucose * LIPID PROFILE(Performed 03/11/2021) Performed for Elevated glucose * XR CHEST 2VW(Performed 03/04/2021) Performed for Elevated blood pressure reading without diagnosis of hypertension * URINALYSIS - POCT (IP) BEAKER INTERFACE(Performed 03/04/2021) Performed for Elevated blood pressure reading without diagnosis of hypertension * CBC W AUTO DIFFERENTIAL(Performed 03/04/2021) Performed for Elevated blood pressure reading without diagnosis of hypertension * COMPREHENSIVE METABOLIC PANEL(Performed 03/04/2021) Performed for Elevated blood pressure reading without diagnosis of hypertension * TSH(Performed 03/04/2021) Performed for Elevated blood pressure reading without diagnosis of hypertension * URINALYSIS - POCT (IP) NOTIFICATION(Performed 03/04/2021) Performed for Elevated blood pressure reading without diagnosis of hypertension * CARDIAC RHYTHM STRIP ORDER(Performed 10/01/2019) * CT ABDOMEN PELVIS W CONTRAST(Performed 09/28/2019) Performed for Abdominal pain, generalized * AMYLASE BLOOD(Performed 09/28/2019) * LIPASE BLOOD(Performed 09/28/2019) * COMPREHENSIVE METABOLIC PANEL(Performed 09/28/2019) * CBC W AUTO DIFFERENTIAL(Performed 09/28/2019) * URINE MICROSCOPIC ONLY REFLEX TO CULTURE(Performed 09/28/2019) * URINALYSIS REFLEX MICROSCOPIC REFLEX CULTURE(Performed 09/28/2019) Results * HEMOGLOBIN A1C (03/11/2021 8:16 AM CDT) Hemoglobin A1c 5.2 4.2 - 5.6 % 03/11/2021 1:[address] [facility] Estimated Average Glucose 103 mg/dL 03/11/2021 1:[address] [facility] Blood BLOOD SPECIMEN WITH EDTA / Unknown Venipuncture / Unknown 03/11/2021 8:16 AM CDT 03/11/2021 8:16 AM CDT Narrative [facility] - 03/11/2021 1:10 PM CDT The following cutoff levels are recommended by [place] [employer]. ?? A1c ??> 6.5% : [...] Sexton MD LAB - CHEMISTRY YOMI MAYA [facility] Organization Address City/State/ZIP Co de Phone Number [facility] [address] [place] [address], [facility] * (ABNORMAL) LIPID PROFILE (03/11/2021 8:16 AM CDT) [facility] Cholesterol 234(H) <200 mg/dL 03/11/2021 1:[address] [facility] Triglycerides 1,035(H) <150 mg/dL 03/11/2021 1:[address] [facility] HDL Cholesterol 29(L) >40 mg/dL 1 1:[address] [facility] Chol HDL Ratio 8.1(H) 1.0 - 6.0 03/11/2021 1:[address] [facility] LDL Calculated 03/11/2021 1:[address] [facility] Comment:Not Calculated due t o Triglyceride >400 mg/dL. VLDL Calculated 1:[address] [facility] Comment:Not Calculated due t o Triglyceride >400 mg/dL. Blood BLOOD SPECIMEN / Unknown Venipuncture / Unknown 03/11/2021 8:16 AM CDT 03/11/2021 8:16 AM CDT Narrative [facility] - 03/11/2021 1:10 PM CDT Lipid [...] AVERAGE...................>23........................>11 Nenita Sexton [facility] Organization Address City/State/[place] Co de Phone Number [facility] [address] * XR CHEST 2 VWS PA AND LAT [address] (03/04/2021 9:48 AM CDT) Anatomical Region Laterality Modality Chest Radiographic Marcie ging 03/04/2021 9:56 AM CDT Impressions 03/04/2021 9:56 AM CDT [...] [facility] * (ABNORMAL) URINALYSIS - POCT (IP) BEAKER INTERFACE (03/04/2021 9:43 AM CDT) Color UA POCT Dark Yellow(A) Straw, Yellow, Light Yellow 03/04/2021 12:[address] [facility] Clarity UA POCT Clear Clear 12:[address] [facility] Specific [place] UA POCT 1.020 1.005 - 1.030 03/04/2021 12:[address] [facility] pH UA POCT 6.0 5.0 - 8.5 pH 03/04/2021 12:[address] [facility] Protein UA POCT 1+(A) Negative 12:[address] [facility] Blood UA POCT Negative Negative, Trace-lysed , Trace-intac t 03/04/2021 12:[address] [facility] Leukocyte UA POCT Negative Negative 03/04/2021 12:[address] [facility] Nitrite UA POCT Negative Negative 12:[address] [facility] Glucose UA POCT Negative Negative 12:[address] [facility] Ketone UA POCT Trace(A) Negative 03/04/2021 12:[address] [facility] Bilirubin UA POCT 1+(A) Negative 03/04/2021 12:[address] [facility] Urobilinogen UA POCT 1.0 0.2 - 1.0 EU/dL 03/04/2021 12:[address] [facility] Urine URINE / Unknown 03/04/2021 9 :43 AM CDT 03/04/2021 12:07 PM CDT [facility] - POINT OF CARE ORDERABLES [facility] [address], [place] [address] * (ABNORMAL) CBC WITH DIFFERENTIAL (03/04/2021 9:34 AM CDT) Only the most recent of2 resultswithin the time period is included. WBC 14.1(H) 4.0 - 10.0 x10E9/L 03/04/2021 12:[address] [facility] RBC 5.45 4.40 - 6.10 x10E12/L 03/04/2021 12:[address] [facility] Hemoglobin 16.7 13.7 - 17.5 gm/dL 03/04/2021 12:[address] [facility] Hematocrit 48.7 40.1 - 51.0 % 03/04/2021 12:[address] [facility] MCV 89.4 78.0 - 100.0 fl 03/04/2021 12:[address] [facility] MCH 30.6 25.6 - 34.0 pg 03/04/2021 12:[address] [facility] MCHC 34.3 32.3 - 36.5 gm/dL 03/04/2021 12:[address] [facility] RDW 13.1 11.6 - 14.4 % 03/04/2021 12:[address] [facility] MPV 10.3 9.4 - 12.4 fl 03/04/2021 12:[address] [facility] Platelet Count 345 163 - 369 x10E9/L 03/04/2021 12:[address] [facility] Neutrophils % 73.1 40.0 - 75.0 % 03/04/2021 12:[address] [facility] Lymphocytes % 17.1(L) 19.3 - 53.1 % 03/04/2021 12:[address] [facility] Monocytes % 7.3 4.7 - 12.5 % 03/04/2021 12:[address] [facility] Eosinophils % 1.9 0.7 - 7.0 % 03/04/2021 12:[address] [facility] Basophils % 0.2 0.1 - 1.2 % 03/04/2021 12:[address] [facility] Immature Granulocytes 0.4 0 - 0.5 % 03/04/2021 12:[address] [facility] Neutrophil Absolute 10.32(H) 1.56 - 6.13 x10E9/L 03/04/2021 12:[address] [facility] Lymphocytes Absolute 2.41 1.18 - 3.74 x10E9/L 03/04/2021 12:[address] [facility] Monocytes Absolute 1.03(H) 0.24 - 0.86 x10E9/L 03/04/2021 12:[address] [facility] Eosinophils Absolute 0.27 0.04 - 0.54 x10E9/L 03/04/2021 12:[address] [facility] Basophils Absolute 0.03 0.01 - 0.08 x10E9/L 03/04/2021 12:[address] [facility] Immature Granulocytes Absolute 0.05(H) 0 - 0.03 x10E9/L 03/04/2021 12:[address] [facility] nRBC Auto 0 <=0 /100 WBC 03/04/2021 12:[address] [facility] nRBC Absolute 0.00 <=0 x10E9/L 03/04/2021 12:[address] [facility] Blood BLOOD SPECIMEN / Unknown Venipuncture / Unknown 03/04/2021 9:34 AM CDT 03/04/2021 9:34 AM CDT [facility] - HEMATOLOGY ORD ERABLES Performing Organization Address City/State/[place] Co de Phone Number [facility] [address] * (ABNORMAL) COMPREHENSIVE METABOLIC PANEL (03/04/2021 9:34 AM CDT) Only the most recent of2 resultswithin the time period is included. [facility] Glucose 171(H) 70 - 125 mg/dL 03/04/2021 1:26 PM [facility] Sodium 138 136 - 145 mmol/L 03/04/2021 1:26 PM [facility] Potassium 4.2 3.4 - 4.5 mmol/L 03/04/2021 1:26 PM [facility] Chloride 99 98 - 107 mmol/L 03/04/2021 1:26 PM [facility] CO2 28 22 - 29 mmol/L 03/04/2021 1:26 PM [facility] Calcium 10.1 8.4 - 10.2 mg/dL 03/04/2021 1:26 PM [facility] Anion Gap 15 10 - 20 mmol/L 03/04/2021 1:26 PM [facility] BUN 11.9 8.4 - 25.7 mg/dL 03/04/2021 1:26 PM [facility] Creatinine 1.16 0.72 - 1.25 mg/dL 03/04/2021 1:26 PM [facility] eGFR by MDRD >60 >60 mL/min/1.7 3m2 03/04/2021 1:26 PM [facility] eGFR by MDRD >60 >60 mL/min/1.7 3m2 03/04/2021 1:26 PM [facility] Alkaline Phosphatase 99 40 - 150 U/L 03/04/2021 1:26 PM [facility] ALT 66(H) 5 - 55 U/L 03/04/2021 1:26 PM [facility] AST 38(H) 5 - 34 U/L 03/04/2021 1:26 PM [facility] Protein Total 8.8(H) 6.4 - 8.3 gm/dL 03/04/2021 1:26 PM [facility] Albumin 4.6 3.5 - 5.0 gm/dL 03/04/2021 1:26 PM [facility] Globulin Total 4.2(H) 2.6 - 4.0 gm/dL 03/04/2021 1:26 PM [facility] Albumin/Globulin Ratio 1.1 0.9 - 1.6 03/04/2021 1:[address] [facility] Bilirubin Total 1.8(H) 0.2 - 1.2 mg/dL 03/04/2021 1:[address] [facility] Blood BLOOD SPECIMEN / Unknown Venipuncture / Unknown 03/04/2021 9:34 AM CDT 03/04/2021 9:34 AM CDT Jean [facility] - CHEMISTRY YOMI MAYA Performing Organization Address [facility]/[place] Co de Phone Number [facility] [address] * TSH (03/04/2021 9:34 AM CDT) TSH 0.710 0.35 - 4.94 uIU/mL 03/04/2021 1:[address] [facility] Blood BLOOD SPECIMEN / Unknown Venipuncture / Unknown 03/04/2021 9:34 AM CDT 03/04/2021 9:34 AM CDT Jean Carlos [facility] - CHEMISTRY YOMI MAYA Performing Organization Address [facility] de Phone Number [facility] [address] [place] [address] * URINALYSIS - POCT (IP) NOTIFICATION (03/04/2021 9:31 AM CDT) Comment Notification Label Only - See Separate Report 03/04/2021 11:[address] [facility] Urine URINE / Unknown 03/04/2021 9 :31 AM CDT 03/04/2021 9:31 AM CDT Jean [facility] - URINALYSIS ORD BRIAN Performing Organization Address [facility]/[place] Co de Phone Number [facility] [address] * CARDIAC RHYTHM STRIP ORDER (10/01/2019 11:28 AM TARGET TRIMMER) Narrative 10/01/2019 11:28 AM T[employer] TR[employer]MER Ordered by an unspecified provider. Scanned Document CARDIAC SERVICES ORD ERABLES * CT ABDOMEN AND PELVIS W IV CONTRAST [id number] (09/28/2019 6:25 AM TARGET TRIMMER) Anatomical Region Laterality Modality Abdomen, Pelvis Computed Tomogra phy 09/28/2019 6:37 AM TARGET TRIMMER Impressions 09/28/2019 6:41 AM TARGET TRIMMER Presumed colitis as described above. Correlate clinically. No focal fluid collection, free fluid, perforation. No other significant findings. Narrative 09/28/2019 6:41 AM TARGET TRIMMER PROCEDURE: CT ABDOMEN PELVIS W CONTRAST ??09/28/2019 6:37 AM HISTORY: Generalized abdominal pain. FINDINGS AND IMPRESSION: COMPARISON: No comparison. CONTRAST: ??100 cc Isovue-300 IV.. Radiation dose reduction technique was utilized. FINDINGS: Infiltrative changes are noted involving transverse, descending, and sigmoid colon compatible with colitis. Correlate clinically. No free fluid, focal fluid collection, or perforation. Lung bases are clear. No intrahepatic ductal dilation or mass lesions. Fatty hepatic degeneration. Spleen is normal. Adrenal glands are normal. No solid or cystic pancreatic mass lesion. No evidence of calcified gallstones. Both kidneys are unremarkable. Bladder is normal. Unremarkable prostate. No free fluid or lymphadenopathy. No focal intra-abdominal pelvic mass. No evidence of bowel obstruction. Appendix is normal. Osseous structures are unremarkable. Procedure Note Saba Nunez MD - 09/28/2019 PROCEDURE: CT ABDOMEN PELVIS W CONTRAST 09/28/2019 6:37 AM HISTORY: Generalized abdominal pain. FINDINGS AND IMPRESSION: COMPARISON: No comparison. CONTRAST: 100 cc Isovue-300 IV.. Radiation dose reduction technique was utilized. FINDINGS: Infiltrative changes are noted involving transverse, descending, and sigmoid colon compatible with colitis. Correlate clinically. No free fluid, focal fluid collection, or perforation. Lung bases are clear. No intrahepatic ductal dilation or mass lesions. Fatty hepatic degeneration. Spleen is normal. Adrenal glands are normal. No solid or cystic pancreatic mass lesion. No evidence of calcified gallstones. Both kidneys are unremarkable. Bladder is normal. Unremarkable prostate. No free fluid or lymphadenopathy. No focal intra-abdominal pelvic mass. No evidence of bowel obstruction. Appendix is normal. Osseous structures are unremarkable. IMPRESSION Presumed colitis as described above. Correlate clinically. No focal fluid collection, free fluid, perforation. No other significant findings. Rickie Youngblood MD CT ORDERABLES * LIPASE BLOOD (09/28/2019 4:38 AM TARGET TRIMMER) Lipase 27 8 - 78 U/L 09/28/2019 5:22 AM TARGET TRIMMER [facility] Blood BLOOD SPECIMEN / Unknown Lab Venipuncture / Unknown 09/28/2019 4:38 AM TARGET TRIMMER 09/28/2019 4:45 AM TARGET TR[employer]MER Rickie Youngblood MD LAB - CHEMISTRY YOMI MAYA Performing Organization Address City/[facility]/ZIP Co de Phone Number [facility] [address] * AMYLASE BLOOD (09/28/2019 4:38 AM TARGET TRIMMER) Amylase 82 25 - 125 U/L 09/28/2019 5:[address] [facility] Blood BLOOD SPECIMEN / Unknown Lab Venipuncture / Unknown 09/28/2019 4:38 AM TARGET TRIMMER 09/28/2019 4:45 AM TARGET TRIMMER Rickie Youngblood MD LAB - CHEMISTRY YOMI MAYA Performing Organization Address [facility]/[place] Co de Phone Number [facility] [address] [place] [address] * URINE MICROSCOPIC ONLY REFLEX TO CULTURE (09/28/2019 4:12 AM TARGET TR[employer]MER) Reflex Status Culture not indicated 09/28/2019 4:[address] [facility] RBC UA 3-5 None Seen, 0-2, 3-5 # /hpf 09/28/2019 4:[address] [facility] WBC UA 0-5 None Seen, 0-5 # /hpf 09/28/2019 4:[address] [facility] Bacteria UA None Seen None Seen 09/28/2019 4:[address] [facility] Squamous Epithelial Cells None Seen None Seen, 0-2, 3-5 /hpf 09/28/2019 4:[address] [facility] Mucus UA 1+ /LPF 09/28/2019 4:[address] [facility] Urine URINE SPECIMEN OBTAINED BY CLEAN CATCH PROCEDURE / Unknown Collection / Unknown 09/28/2019 4:12 AM TARGET TRIMMER 09/28/2019 4:14 AM [facility] Narrative [facility] - 09/28/2019 4:54 AM TARGET TRIMMER Rickie Youngblood MD LAB - URINALYSIS ORD ERABLES Performing Organization Address [facility]/ZIP Co de Phone Number [facility] [address] * (ABNORMAL) URINALYSIS REFLEX MICROSCOPIC REFLEX CULTURE (09/28/2019 4:12 AM TARGET TR[employer]MER) Color UA Straw 09/28/2019 4:[address] [facility] Clarity UA Clear Clear 09/28/2019 4:[address] [facility] Glucose UA Negative Negative 09/28/2019 4:[address] [facility] Bilirubin UA Negative Negative 09/28/2019 4:[address] [facility] Ketone UA Negative Negative 09/28/2019 4:[address] [facility] Specific [place] UA >=1.030 1.005 - 1.030 09/28/2019 4:[address] [facility] Blood UA Trace(A) Negative 09/28/2019 4:[address] [facility] pH UA 6.0 5.0 - 8.0 pH 09/28/2019 4:[address] [facility] Protein UA Negative Negative 09/28/2019 4:[address] [facility] Urobilinogen UA Negative Negative mg/dL 09/28/2019 4:[address] [facility] Nitrite UA Negative Negative 09/28/2019 4:[address] [facility] Leukocyte UA Negative Negative 09/28/2019 4:[address] [facility] Urine Microscopy Urine microscopy to follow 09/28/2019 4:[address] [facility] Reflex Status Culture not indicated 09/28/2019 4:[address] [facility] Urine URINE SPECIMEN OBTAINED BY CLEAN CATCH PROCEDURE / Unknown Collection / Unknown 09/28/2019 4:12 AM TARGET TRIMMER 09/28/2019 4:14 AM [facility] Narrative [facility] - 09/28/2019 4:27 AM TARGET TRIMMER Rickie Youngblood MD LAB - URINALYSIS ORD ERABLES Performing Organization Address [facility]/ZIP Co de Phone Number [facility] [address] [place] [address], [facility] Care Teams Assembler [employer] Relationship Specialty Start Date End Date Nenita Sexton MD [address] [place] [address] PCP - General Internal Medicine 03/05/21
--- OUTSIDE RECORDS SUMMARY | 2024-10-02 02:32 | XMS_ITS | Encounter Summary ---
Author Organization [facility] Address [address] [facility] [place] [address] Care Team Providers Care Leather Cartridge Belt Maker Name Role Phone Nenita Sexton MD Primary Care Provider [phone] Encounter Details Date Type Department Care Team (Late st Contact Info) Description 03/17/2021 Orders Only [facility] - Family Medicine [address] [place] [phone] Nenita Sexton MD [address] [place] [id number] Social History Tobacco Use Types Packs/Day Years Used Date Smoking Tobacco: Never Smokeless Tobacco: Former Quit: 03/05/2018 Alcohol Use Standard Drinks/Week Comments Not Currently 0 (1 standard drink = 0.6 oz pur e alcohol) rarely PHQ-2 Answer Date Recorded PHQ2 TOTAL SCORE 3 03/12/2021 Sex and Gender Information Value Date Recorded Sex Assigned at Male 10/10/2021 1:14 AM [employer] Gender Identity Male 10/10/2021 1:14 AM [employer] Sexual Orientation Not on file COVID-19 Exposure [...] on filedocumented in this encounter Care Teams Leather Cartridge Belt Maker Relationship Specialty Start Date End Date Nenita Sexton MD [address] [place] [id number] PCP - General Internal Medicine 03/05/21 documented as of this encounter
--- OUTSIDE RECORDS SUMMARY | 2024-10-02 02:32 | XMS_ITS | Clinical Summary ---
Author Organization [facility] [employer] Address [address] [place] [address] Care Team Providers Care Manager Performance Name Role Phone Nenita Sexton MD Primary Care Provider [phone] Source Comments [facility] [employer]non-owned Affiliates and Associated Physician Practices is amultiple site organization consisting of ambulatory clinics and hospital sitesin [place], [place], [place] and [place]. This disclosure is being madepursuant to the Care Everywhere program and may not contain all information available regarding this patient. Last updated 18.[employer] Allergies No known active allergies Medications Be [...] OPV 01/04/1992,06/29/1991,04/27/1991 ,04/07/1984 TD, HISTORIC VACCINE 09/06/2011 Family History Medical History Relation Name Comments Hypertension Brother Alcohol abuse Father Cancer - Breast Mother Diabetes; unknown type Mother Relation Name Status Comments Brother Father Mother Social History Tobacco Use Types Packs/Day Years Used Date Smoking Tobacco: Never Smokeless Tobacco: Former Quit: 03/05/2018 Alcohol Use Standard Drinks/Week Comments Not Currently 0 (1 standard drink = 0.6 oz pur e alcohol) rarely PHQ-2 Answer Date Recorded PHQ2 TOTAL SCORE 3 03/12/2021 Sex and Gender Information Value Date Recorded Sex Assigned at Male 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 Gender Identity Male 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 Sexual Orientation Not on file Last Filed [...] 03/12/2021 9:59 AM CDT Plan of Treatment Health Maintenance Due Date Last Done Comments COLOGUARD (AGES 45-75) - COLON CA SCREENING 1980 COLON MONITORING 1978 COLONOSCOPY - COLON CA SCREENING 1978 CT COLONOGRAPHY - COLON CA SCREENING 1978 Colorectal Cancer Screening 1978 FIT - COLON CA SCREENING 1978 FLEX SIG - COLON CA SCREENING 1978 HIV SCREENING 1993 HEPATITIS C SCREENING 03/31/1996 DTAP/TDAP/TD VACCINES (6 - Td or Tdap) 09/06/2021 09/06/2011, 02/08/1992, 01/04/1992, Additional history exists DEPRESSION SCREENING 09/26/2023 SCREENING FOR DIABETES 03/11/2024 , 03/04/2021, 09/28/2019 COVID-19 VACCINE ( season) 2024 INFLUENZA VACCINE (#1) 2024 LIPID TESTING 03/11/2026 03/11/2021 ZOSTER VACCINE (1 of 2) 2028 HEPATITIS B VACCINE Completed 05/01/2012, 08/23/2011, 07/19/2011 HIB VACCINE Aged Out No longer eligi ble based on patient's age to complete this topic HPV VACCINE Aged Out No longer eligi ble based on patient's age to complete this topic MENINGOCOCCAL VACCINE Aged Out No ericka matty eligible based on patient's age to complete this topic PNEUMOCOCCAL VACCINE Aged Out No long er eligible based on patient's age to complete this topic Procedures Procedure Name Priority Date/Time Associated Diagnosis Comments HEMOGLOBIN A1C Routine 03/11/2021 8:16 AM CDT Elevated glucose LIPID PROFILE Routine 03/11/2021 8:16 AM CDT Elevated glucose from Last 3 Months or Most Recently Relevant to Health Maintenance Results * HEMOGLOBIN A1C (03/11/2021 8:16 AM CDT) [facility] Hemoglobin A1c 5.2 4.2 - 5.6 % 03/11/2021 1:10 PM CDT [facility] Estimated Average Glucose 103 mg/dL 03/11/2021 1:10 PM CDT [facility] Blood BLOOD SPECIMEN WITH EDTA / Unknown Venipuncture / Unknown 03/11/2021 8:16 AM CDT 03/11/2021 8:16 AM CDT Narrative [facility] - 03/11/2021 1:10 PM CDT The following cutoff levels are recommended by [place] [employer]. ?? A1c ??> 6.5% : [...] Sexton MD LAB - CHEMISTRY YOMI [facility] Organization Address City/State/[facility] Co de Phone Number [facility] [address] * (ABNORMAL) LIPID PROFILE (03/11/2021 8:16 AM CDT) [facility] Cholesterol 234(H) <200 mg/dL 03/11/2021 1:10 PM CDT [facility] Triglycerides 1,035(H) <150 mg/dL 03/11/2021 1:10 PM CDT [facility] HDL Cholesterol 29(L) >40 mg/dL 1:10 PM CDT [facility] Chol HDL Ratio 8.1(H) 1.0 - 6.0 03/11/2021 1:10 PM CDT [facility] LDL Calculated 03/11/2021 1:10 PM CDT [facility] Comment:Not Calculated due t o Triglyceride >400 mg/dL. VLDL Calculated 1:10 PM CDT [facility] Comment:Not Calculated due t o Triglyceride >400 mg/dL. Blood BLOOD SPECIMEN / Unknown Venipuncture / Unknown 03/11/2021 8:16 AM CDT 03/11/2021 8:16 AM CDT Narrative [facility] - 03/11/2021 1:10 PM CDT Lipid [...] Nenita Sexton MD LAB - CHEMISTRY [facility] Organization Address City/State/ZIP Co de Phone Number [facility] [address] [place] [address], [facility] from Last 3 Months or Most Recently Relevant to Health Maintenance Care Teams Manager Performance Relationship Specialty Start Date End Date Nenita Sexton MD [address], [place] [address] PCP - General Internal Medicine 03/05/21
--- OUTSIDE RECORDS SUMMARY | 2024-10-02 02:32 | XMS_ITS | Encounter Summary ---
Author Organization [facility] Address [address] [place] [place] [address] Care Team Providers Care Pharmacy Resource Tech Name Role Phone Nenita Sexton MD Primary Care Provider [phone] Reason for Visit * Reason Comments Establish Care Blood Pressure Check Encounter Details Date Type Department Care Team (Late st Contact Info) Description 03/05/2021 10:00 AM CDT Office Visit [facility] - Family Medicine [address] [place] [phone] Nenita Sexton MD [address] [place] [phone] Elevated glucose (Primary Dx); Stress; Liver function abnormality; Bandemia Social History Tobacco Use Types Packs/Day Years Used Date Smoking Tobacco: Never Smokeless Tobacco: Former Quit: 03/05/2018 Alcohol Use Standard Drinks/Week Comments Not Currently 0 (1 standard drink = 0.6 oz pur e alcohol) rarely Sex and Gender Information Value Date Recorded Sex Assigned at Male 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 No / Unsure 03/04/2021 9:03 AM CDT documented as of this encounter Last Filed Vital Signs Vital Sign Reading Time Taken Comments Blood Pressure 138/78 03/05/2021 9:57 AM CDT Pulse 96 03/05/2021 9:57 AM CDT Temperature 36.9 ??C (98.4 ??F) 03/05/2021 9:57 AM CD T Respiratory Rate - - Oxygen Saturation 97% 03/05/2021 9:57 AM CDT Inhaled Oxygen Concentration - - Weight 74 kg (163 lb 3.2 oz) 03/05/2021 9:57 AM CDT Height 172.7 cm (5' 8 ) 03/05/2021 9:57 AM CDT Body Mass Index 24.81 03/05/2021 9:57 AM CDT documented in this encounter Progress Notes * Nenita Sexton MD - 03/05/2021 10:06 AM CDT Date: 03/05/2021 Pt Name: Chadwick Holcomb : 1980 AGE: [id number] year old SEX: male SUBJECTIVE: Chief Complaint Patient presents with ??? Establish Care ??? 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 Chadwick had a score of 16 (Radha Sorto RN) on the PHQ Depression Screening. As a follow-up, counseling was provided, patient advised to follow up with PCP and I will continue to monitor patient. I spent 60 minutes reviewing and discussing this with Chadwick. His lab tests were also discussed and it was discussed that white cell count can go high due to anystressor that stresses the body out and will continue to monitor. his LFTs were also deranged as well but they have trended down from prior labs. the provider will continue to monitor. in case both WBC and LFTs continue to be abnormal, the provider will do additional studies to work them out which the patient agreed to. Elevated blood pressure was also discussed with the patient. He stated that at home it was 130/90 which has never been this high especially the lower number and it was discussed that due to his current stressful situation there is a high likelihood that is the cause of his elevated diastolic blood pressure although in the clinic the blood pressure was better, the patient denies taking a lot of salt and lives a healthy lifestyle and is mostly active He also stated having blurry vision in both eyes with lights flashing and feels that his blurrinessis more for closer objects than far objects and intends to set up an optometry appointment No Known Allergies Outpatient Medications Prior to Visit Medication Sig Dispense Refill ??? HYDROcodone-acetaminophen (NORCO) 5-325 MG tablet Take 1 tablet by mouth every 6 hours as needed for Pain (Patient not taking: Reported on 03/04/2021) 16 tablet 0 ??? ondansetron (ZOFRAN) 4 MG tablet Take 1 tablet by mouth every 6 hours as needed for Nausea/Vomiting (Patient not taking: Reported on 03/04/2021) 16 tablet 0 No facility-administered medications prior to visit. No [...] are noted in HPI Review of Systems Constitutional: Negative. Eyes: Positive for blurred vision. Psychiatric/Behavioral: Positive for depression. Negative for hallucinations, memory loss, substance abuse and suicidal ideas. The patient is nervous/anxious and has insomnia. OBJECTIVE: BP 138/78 Pulse 96 Temp 98.4 ??F (36.9 ??C) (Temporal) Ht 1.727 m (5' 8 ) Wt 74 kg (163 lb 3.2 oz) SpO2 97% BMI 24.81 kg/m?? PHYSICAL EXAM: BP 138/78 Pulse 96 Temp 98.4 ??F (36.9 ??C) (Temporal) Ht 1.727 m (5' 8 ) Wt 74 kg (163 lb 3.2 oz) SpO2 97% BMI 24.81 kg/m2 ASSESSMENT/PLAN ICD-10-CM 1. Elevated glucose R73.09 HEMOGLOBIN A1C LIPID PROFILE 2. Stress F43.9 Excessive discussion and counseling done it was recommended that he take rest for now and the provider will re-evaluate next week if he needs prescription medications or referral to acounselor 3 liver function abnormality will repeat labs in next 3 months and if the persistently elevated or abnormal will consider further workup 4 and elevated WBC count will repeat labs in next 3 months and if the persistently elevated or abnormal will consider further workup Chadwick had a score of 16 (Radha Sorto, RN) on the PHQ Depression Screening. As a follow-up, counseling was provided, patient advised to follow up with PCP and I will continue to monitor patient. I spent 60 minutes reviewing and discussing this with Chadwick. PLAN: Orders Placed This Encounter ??? HEMOGLOBIN A1C ??? LIPID PROFILE Return in about 1 week (around 03/12/2021) for for follow up on anxiety. Nenita Sexton MD documented in this encounter Miscellaneous Notes * Addendum Note - Lucien Rosado - 03/09/2021 8:55 AM CDTAddended by: LUCIEN ROSADO on: 03/09/2021 08:55 AM Modules accepted: Level of Service documented in this encounter Plan of Treatment Not on file documented as of this encounter Results * (ABNORMAL) LIPID PROFILE (03/11/2021 8:16 AM CDT) [facility] Cholesterol 234(H) <200 mg/dL 03/11/2021 1:10 PM CDT [facility] Triglycerides 1,035(H) <150 mg/dL 03/11/2021 1:10 PM CDT [facility] HDL Cholesterol 29(L) >40 mg/dL 1:10 PM T [facility] Chol HDL Ratio 8.1(H) 1.0 - 6.0 03/11/2021 1:10 PM T [facility] LDL Calculated 03/11/2021 1:10 PM T [facility] Comment:Not Calculated due t o Triglyceride >400 mg/dL. VLDL Calculated 1:10 PM T [facility] Comment:Not Calculated due t o Triglyceride >400 mg/dL. Blood BLOOD SPECIMEN / Unknown Venipuncture / Unknown 03/11/2021 8:16 AM CDT 03/11/2021 8:16 AM CDT [facility] - 03/11/2021 1:10 PM CDT Lipid [...] [facility] Organization Address City/[facility] Co de Phone Number [facility] [address] * HEMOGLOBIN A1C (03/11/2021 8:16 AM CDT) [facility] Hemoglobin A1c 5.2 4.2 - 5.6 % 03/11/2021 1:10 PM CDT [facility] Estimated Average Glucose 103 mg/dL 03/11/2021 1:10 PM CDT [facility] Blood BLOOD SPECIMEN WITH EDTA / Unknown Venipuncture / Unknown 03/11/2021 8:16 AM CDT 03/11/2021 8:16 AM CDT Narrative [facility] - 03/11/2021 1:10 PM CDT The following cutoff levels are recommended by [place] [employer]. ?? A1c ??> 6.5% : [...] [facility] Organization Address City/State/[facility] Co de Phone Number [facility] [address] documented in this encounter Visit Diagnoses Diagnosis Elevated glucose- Primary Other abnormal glucose Stress Other psychological or physical stress, not elsewhere classified Liver function abnormality Unspecified disorder of liver Bandemia documented in this encounter Care Teams Pharmacy Resource Tech Relationship Specialty Start Date End Date Nenita Sexton MD [address] [place] [address] PCP - General Internal Medicine 03/05/21 documented as of this encounter
--- OUTSIDE RECORDS SUMMARY | 2024-10-02 02:32 | XMS_ITS | Encounter Summary ---
Author Organization [facility] Address [address] [place] [address] Care Team Providers Care Phone Engineer Name Role Phone Nenita Sexton MD Primary Care Provider [phone] Reason for Visit * Reason Onset Date Comments Update 03/18/2021 Encounter Details Date Type Department Care Team (Late st Contact Info) Description 03/18/2021 Telephone [facility] - Family Medicine [address] [place] [phone] [place] [address] [place] [phone] Update Social History Tobacco Use Types Packs/Day Years Used Date Smoking Tobacco: Never Smokeless Tobacco: Former Quit: 03/05/2018 Alcohol Use Standard Drinks/Week Comments Not Currently 0 (1 standard drink = 0.6 oz pur e alcohol) rarely PHQ-2 Answer Date Recorded PHQ2 TOTAL SCORE 3 03/12/2021 Sex and Gender Information Value Date Recorded Sex Assigned at Male 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 No / Unsure 03/11/2021 8:15 AM CDT documented as of this encounter Miscellaneous Notes * Telephone Encounter - Nenita Sexton MD - 03/18/2021 7:00 PM CDT The patient was called and his current situation was discussed extensively. Does not want a counselor referral for now however will think about it Nenita Sexton MD * Telephone Encounter - Radha Sorto, RN - 03/18/2021 3:43 PM CDT Patient was returning Drs. Lance. I did advise patient that his leave form was faxed to his place of work this am. He wanted to let Dr. Sexton know that he is worse and that it has gotten that way in the last 5 days. documented in this encounter Plan of Treatment Not on file documented as of this encounter Visit Diagnoses Not on filedocumented in this encounter Care Teams Phone Engineer Relationship Specialty Start Date End Date Nenita Sexton MD [address] [place] [id number] PCP - General Internal Medicine 03/05/21 documented as of this encounter
--- OUTSIDE RECORDS SUMMARY | 2024-10-02 02:32 | XMS_ITS | Encounter Summary ---
Author Organization [facility] Address [address] [facility] [place] [address] Care Team Providers Care Dependency Director Name Role Phone Nenita Sexton MD Primary Care Provider [phone] Encounter Details Date Type Department Care Team (Latest Contact Info) Description 10/07/2021 Travel Social History Tobacco Use Types Packs/Day Years Used Date Smoking Tobacco: Never Smokeless Tobacco: Former Quit: 03/05/2018 Alcohol Use Standard Drinks/Week Comments Not Currently 0 (1 standard drink = 0.6 oz pur e alcohol) rarely PHQ-2 Answer Date Recorded PHQ2 TOTAL SCORE 3 03/12/2021 Sex and Gender Information Value Date Recorded Sex Assigned at Male 10/10/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 Yes 10/07/2021 10:11 AM INSTRUCTOR PSYCHIATRIC AIDE documented as of this encounter Plan of Treatment Not on file documented as of this encounter Visit Diagnoses Not on filedocumented in this encounter Care Teams Dependency Director Relationship Specialty Start Date End Date Nenita Sexton MD [address] [place] [id number] PCP - General Internal Medicine 03/05/21 documented as of this encounter
--- OUTSIDE RECORDS SUMMARY | 2024-10-02 02:32 | XMS_ITS | Encounter Summary ---
Author Organization [facility] Address [address] [place] [address] Care Team Providers Care Gimp Tacker Name Role Phone Unavailable Primary Care Provider Unavailabl e Reason for Visit * Reason Comments Blood Pressure felt funny this am a t work, 138/90, pulse 104 Encounter Details Date Type Department Care Team (Late st Contact Info) Description 03/04/2021 9:15 AM CDT Office Visit [facility] [address] [place] [phone] Elevated blood pressure reading without diagnosis of hypertension (Primary Dx) Social History Tobacco Use Types Packs/Day Years Used Date Smoking Tobacco: Never Smokeless Tobacco: Never Alcohol Use Standard Drinks/Week Comments Not Currently 0 (1 standard drink = 0.6 oz pur e alcohol) Sex and Gender Information Value Date Recorded Sex Assigned at Male 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 No / Unsure 03/04/2021 9:03 AM CDT documented as of this encounter Last Filed Vital Signs Vital Sign Reading Time Taken Comments Blood Pressure 138/82 03/04/2021 9:18 AM CDT Pulse 104 03/04/2021 9:18 AM CDT Temperature 36.3 ??C (97.3 ??F) 03/04/2021 9:18 AM CD T Respiratory Rate 18 03/04/2021 9:18 AM CDT Oxygen Saturation 96% 03/04/2021 9:18 AM CDT Inhaled Oxygen Concentration - - Weight 74.5 kg (164 lb 3.2 oz) 03/04/2021 9:18 A M CDT Height 172.7 cm (5' 8 ) 03/04/2021 9:18 AM CDT Body Mass Index 24.97 03/04/2021 9:18 AM CDT documented in this encounter Patient Instructions * Patient Instructions* Jean Carlos Hensley PA - 03/04/2021 9:32 AM CDT FREQUENTLY ASKED QUESTIONS (FAQ) ABOUT HOME BLOOD PRESSURE MONITORING. How is home blood pressure measurement helpful? Monitoring your blood pressure at home will allow you to check your blood pressure more frequently than just the occasion when you are at the doctor's office. These more frequent readings may reflecta more accurate picture of your true blood pressure and response to treatment. Blood pressure measurements at home, in your natural environment, often tends to be lower and more medical office representative of your true blood pressure. What equipment do I need? Electronic blood pressure measurement devices are readily available at many pharmacies and medical supply stores. The cost is usually in the $40 and up range. The devices that measure arm blood pressure are most accurate and have been better validated against standard blood pressure measurement. Finger measurement devices are frequently inaccurate. How do I know my device is accurate? If there is any doubt about the accuracy of your device you may bring it to your doctor's office (typically without an appointment with the doctor) to have the staff there measure your blood pressurewith your device and with the office equipment. Once your device is more than a year old, this should be done yearly. How should I measure my blood pressure? You should be seated at a table or in a chair with your arm resting at heart level. The cuff shouldbe correctly sized and placed. You should be at rest, seated comfortably, without undue stress for 5 minutes before measuring the blood pressure. What time of day should I measure my blood pressure? The distinct advantage of home blood pressure measurement is the ability to check blood pressure atdifferent times of the day. So it would be advisable to check in the morning, afternoon and eveningat various times over the course of a month. The morning blood pressure levels are typically higher(roughly 4 a.m. to 12 noon) due to circadian rhythms. How often should I check my blood pressure? Your doctor will help you decide on the exact frequency that is best for you. Usually once in a 24 hour period is sufficient. Taking the blood pressure multiple times in succession in a day is discouraged because repeated measurements taken too close to each other can be inaccurate. You may take your blood pressure once a week or every two weeks if the measurements are stable. If there are changes in the blood pressure or in your medications you may want to check several times in a given week. Do record the blood pressure measurements with the time of day and date to share with your doctor. What should my blood pressure be? Your doctor will help you decide your blood pressure goal and goals of treatment. Generally, the normal blood pressure is a systolic (top number) pressure under 120 and a diastolic (bottom number) under 80. A blood pressure of 122 - 140 and 80 - 90 is called pre-hypertension. High blood pressure or hypertension is greater than 140/90. If you take medication for hypertension, the goal is blood pressure under 140/90. If you have diabetes or kidney disease along with hypertension, the goal is 130/80 or less. When should I be alarmed by high readings? Blood pressure measurements over 180 systolic or 110 diastolic should prompt you to call your doctor for a prompt appointment. A very isolated high reading should be rechecked in several hours. Bloodpressures over 200/120 should prompt you to call your doctor urgently. If you have symptoms of chest pain, severe headache, dizziness, shortness of breath associated with these very high blood pressure measurements, you should seek immediate medical attention at a hospital emergency department. documented in this encounter Progress Notes * Jean Carlos Hensley PA - 03/04/2021 9:31 AM CDT 03/04/2021 PCP: No primary care provider on file. CC: Chief Complaint Patient presents with ??? Blood Pressure felt funny this am at work, 138/90, pulse 104 . HPI: Chadwick Holcomb is a 40 year old male [facility] with complaints of isolated b/p reads at work so here for concern of needing medications. Denies chest pain/SOB/headache No past surgical history on file. No family history on file. No Known Allergies Review of Systems: Pertinent items are noted in HPI Exam: BP 138/82 (BP SITE: LEFT ARM, BP POSITION: SITTING, BP CUFF SIZE: 11) Pulse 104 Temp 97.3 ??F (36.3 ??C) (Temporal) Resp 18 Ht 1.727 m (5' 8 ) Wt 74.5 kg (164 lb 3.2 oz) SpO2 96% BMI 24.97 kg/m?? BP 138/82 (BP SITE: LEFT ARM, BP POSITION: SITTING, BP CUFF SIZE: 11) Pulse 104 Temp 97.3 ??F (36.3??C) (Temporal) Resp 18 Ht 1.727 m (5' 8 ) Wt 74.5 kg (164 lb 3.2 oz) SpO2 96% BMI 24.97 kg/m2 General appearance: alert, cooperative, no distress Ears: canals clear, tympanic membranes normal, hearing intact to voice Throat: no mucous membrane abnormalities Neck: range of motion is intact, no masses, thyroid not enlarged, no adenopathy Heart: regular rhythm, normal S1 and S2, without murmurs, gallops or rubs Lungs: breath sounds normal and symmetric; no rales or wheezes Extremities: no clubbing, cyanosis or edema No results found for this visit on 03/04/21. Impression: ICD-10-CM 1. Elevated blood pressure reading without diagnosis of hypertension R03.0 CBC WITH DIFFERENTIAL TSH COMPREHENSIVE METABOLIC PANEL URINALYSIS - POCT (IP) NOTIFICATION URINALYSIS - POCT (IP) BEAKER INTERFACE XR CHEST 2 VWS PA AND LAT 50183 Treatment: Orders Placed This Encounter ??? XR CHEST 2 VWS PA AND LAT [id number] Standing Status: Future Standing Expiration Date: 03/04/2022 Order Specific Question: Release to patient Answer: Immediate ??? CBC WITH DIFFERENTIAL Standing Status: Future Standing Expiration Date: 03/04/2022 Order Specific Question: Release to patient Answer: Immediate ??? TSH Order Specific Question: Release to patient Answer: Immediate ??? COMPREHENSIVE METABOLIC PANEL Order Specific Question: Release to patient Answer: Immediate ??? URINALYSIS - POCT (IP) NOTIFICATION Order Specific Question: Release to patient Answer: Immediate There are no discontinued medications. Patient Instructions FREQUENTLY ASKED QUESTIONS (FAQ) ABOUT HOME BLOOD PRESSURE MONITORING. How is home blood pressure measurement helpful? Monitoring your blood pressure at home will allow you to check your blood pressure more frequently than just the occasion when you are at the doctor's office. These more frequent readings may reflecta more accurate picture of your true blood pressure and response to treatment. Blood pressure measurements at home, in your natural environment, often tends to be lower and more medical office representative of your true blood pressure. What equipment do I need? Electronic blood pressure measurement devices are readily available at many pharmacies and medical supply stores. The cost is usually in the $40 and up range. The devices that measure arm blood pressure are most accurate and have been better validated against standard blood pressure measurement. Finger measurement devices are frequently inaccurate. How do I know my device is accurate? If there is any doubt about the accuracy of your device you may bring it to your doctor's office (typically without an appointment with the doctor) to have the staff there measure your blood pressurewith your device and with the office equipment. Once your device is more than a year old, this should be done yearly. How should I measure my blood pressure? You should be seated at a table or in a chair with your arm resting at heart level. The cuff shouldbe correctly sized and placed. You should be at rest, seated comfortably, without undue stress for 5 minutes before measuring the blood pressure. What time of day should I measure my blood pressure? The distinct advantage of home blood pressure measurement is the ability to check blood pressure atdifferent times of the day. So it would be advisable to check in the morning, afternoon and eveningat various times over the course of a month. The morning blood pressure levels are typically higher(roughly 4 a.m. to 12 noon) due to circadian rhythms. How often should I check my blood pressure? Your doctor will help you decide on the exact frequency that is best for you. Usually once in a 24 hour period is sufficient. Taking the blood pressure multiple times in succession in a day is discouraged because repeated measurements taken too close to each other can be inaccurate. You may take your blood pressure once a week or every two weeks if the measurements are stable. If there are changes in the blood pressure or in your medications you may want to check several times in a given week. Do record the blood pressure measurements with the time of day and date to share with your doctor. What should my blood pressure be? Your doctor will help you decide your blood pressure goal and goals of treatment. Generally, the normal blood pressure is a systolic (top number) pressure under 120 and a diastolic (bottom number) under 80. A blood pressure of 122 - 140 and 80 - 90 is called pre-hypertension. High blood pressure or hypertension is greater than 140/90. If you take medication for hypertension, the goal is blood pressure under 140/90. If you have diabetes or kidney disease along with hypertension, the goal is 130/80 or less. When should I be alarmed by high readings? Blood pressure measurements over 180 systolic or 110 diastolic should prompt you to call your doctor for a prompt appointment. A very isolated high reading should be rechecked in several hours. Bloodpressures over 200/120 should prompt you to call your doctor urgently. If you have symptoms of chest pain, severe headache, dizziness, shortness of breath associated with these very high blood pressure measurements, you should seek immediate medical attention at a hospital emergency department. Discharge Disposition: 03/04/2021 Time:Home Mode: Ambulatory Condition: Stable Pain: Absent Follow up /Instructions: Follow up with PCP as needed. ALFREDITO Heredia documented in this encounter Plan of Treatment Not on file documented as of this encounter Procedures Procedure Name Priority Date/Time Associated Diagnosis Comments URINALYSIS - POCT (IP) BEAKER INTERFACE Routine 03/04/2021 9:43 AM CDT Elevated blood pressure reading without diagnosis of hypertension COMPREHENSIVE METABOLIC PANEL Routine 03/04/2021 9:34 AM CDT Elevated blood pressure reading without diagnosis of hypertension TSH Routine 03/04/2021 9:34 AM CDT Elevated blood pressure reading without diagnosis of hypertension URINALYSIS - POCT (IP) NOTIFICATION Routine 03/04/2021 9:31 AM CDT Elevated blood pressure reading without diagnosis of hypertension documented in this encounter Results * XR CHEST 2 VWS PA AND LAT [id number] (03/04/2021 9:48 AM CDT) Anatomical Region Laterality [...] Yellow, Light Yellow 03/04/2021 12:07 PM CDT [facility] Clarity UA POCT Clear Clear 12:07 PM CDT [facility] Specific [place] UA POCT 1.020 1.005 - 1.030 03/04/2021 12:07 PM CDT [facility] pH UA POCT 6.0 5.0 - 8.5 pH 03/04/2021 12:07 PM CDT [facility] Protein UA POCT 1+(A) Negative 12:07 PM CDT [facility] Blood UA POCT Negative Negative, Trace-lysed , Trace-intac t 03/04/2021 12:07 PM CDT [facility] Leukocyte UA POCT Negative Negative 03/04/2021 12:07 PM CDT [facility] Nitrite UA POCT Negative Negative 12:07 PM CDT [facility] Glucose UA POCT Negative Negative 12:07 PM CDT [facility] Ketone UA POCT Trace(A) Negative 03/04/2021 12:07 PM CDT [facility] Bilirubin UA POCT 1+(A) Negative 03/04/2021 12:07 PM CDT [facility] Urobilinogen UA POCT 1.0 0.2 - 1.0 EU/dL 03/04/2021 12:07 PM CDT [facility] Urine URINE / Unknown 03/04/2021 9 :43 AM CDT 03/04/2021 12:07 PM CDT [facility] - POINT OF CARE ORDERABLES [facility] [address] * (ABNORMAL) COMPREHENSIVE METABOLIC PANEL (03/04/2021 9:34 AM CDT) Glucose 171(H) 70 - 125 mg/dL 03/04/2021 1:26 PM CDT [facility] Sodium 138 136 - 145 mmol/L 03/04/2021 1:26 PM CDT [facility] Potassium 4.2 3.4 - 4.5 mmol/L 03/04/2021 1:26 PM CDT [facility] Chloride 99 98 - 107 mmol/L 03/04/2021 1:26 PM CDT [facility] CO2 28 22 - 29 mmol/L 03/04/2021 1:26 PM CDT [facility] Calcium 10.1 8.4 - 10.2 mg/dL 03/04/2021 1:26 PM CDT [facility] Anion Gap 15 10 - 20 mmol/L 03/04/2021 1:26 PM CDT [facility] BUN 11.9 8.4 - 25.7 mg/dL 03/04/2021 1:26 PM CDT [facility] Creatinine 1.16 0.72 - 1.25 mg/dL 03/04/2021 1:26 PM CDT [facility] eGFR by MDRD >60 >60 mL/min/1.7 3m2 03/04/2021 1:26 PM CDT [facility] eGFR by MDRD >60 >60 mL/min/1.7 3m2 03/04/2021 1:26 PM CDT [facility] Alkaline Phosphatase 99 40 - 150 U/L 03/04/2021 1:26 PM T [facility] ALT 66(H) 5 - 55 U/L 03/04/2021 1:26 PM T [facility] AST 38(H) 5 - 34 U/L 03/04/2021 1:26 PM T [facility] Protein Total 8.8(H) 6.4 - 8.3 gm/dL 03/04/2021 1:26 PM T [facility] Albumin 4.6 3.5 - 5.0 gm/dL 03/04/2021 1:26 PM T [facility] Globulin Total 4.2(H) 2.6 - 4.0 gm/dL 03/04/2021 1:26 PM T [facility] Albumin/Globulin Ratio 1.1 0.9 - 1.6 03/04/2021 1:26 PM T [facility] Bilirubin Total 1.8(H) 0.2 - 1.2 mg/dL 03/04/2021 1:26 PM T [facility] Blood BLOOD SPECIMEN / Unknown Venipuncture / Unknown 03/04/2021 9:34 AM CDT 03/04/2021 9:34 AM CDT [facility] - CHEMISTRY YOMI Hawthorne Organization Address City/State/ZIP Co de Phone Number [facility] [address] * TSH (03/04/2021 9:34 AM CDT) TSH 0.710 0.35 - 4.94 uIU/mL 03/04/2021 1:47 PM CDT [facility] Blood BLOOD SPECIMEN / Unknown Venipuncture / Unknown 03/04/2021 9:34 AM CDT 03/04/2021 9:34 AM CDT [facility] - CHEMISTRY YOMI Hawthorne Organization Address City/State/ZIP Co de Phone Number [facility] [address] [place], [place] [id number] [place] [address] * (ABNORMAL) CBC WITH DIFFERENTIAL (03/04/2021 9:34 AM CDT) WBC 14.1(H) 4.0 - 10.0 x10E9/L 03/04/2021 12:54 PM CDT [facility] RBC 5.45 4.40 - 6.10 x10E12/L 03/04/2021 12:54 PM CDT [facility] Hemoglobin 16.7 13.7 - 17.5 gm/dL 03/04/2021 12:54 PM CDT [facility] Hematocrit 48.7 40.1 - 51.0 % 03/04/2021 12:54 PM CDT [facility] MCV 89.4 78.0 - 100.0 fl 03/04/2021 12:54 PM CDT [facility] MCH 30.6 25.6 - 34.0 pg 03/04/2021 12:54 PM CDT [facility] MCHC 34.3 32.3 - 36.5 gm/dL 03/04/2021 12:54 PM CDT [facility] RDW 13.1 11.6 - 14.4 % 03/04/2021 12:54 PM CDT [facility] MPV 10.3 9.4 - 12.4 fl 03/04/2021 12:54 PM CDT [facility] Platelet Count 345 163 - 369 x10E9/L 03/04/2021 12:54 PM CDT [facility] Neutrophils % 73.1 40.0 - 75.0 % 03/04/2021 12:54 PM CDT [facility] Lymphocytes % 17.1(L) 19.3 - 53.1 % 03/04/2021 12:54 PM CDT [facility] Monocytes % 7.3 4.7 - 12.5 % 03/04/2021 12:54 PM CDT [facility] Eosinophils % 1.9 0.7 - 7.0 % 03/04/2021 12:54 PM CDT [facility] Basophils % 0.2 0.1 - 1.2 % 03/04/2021 12:54 PM CDT [facility] Immature Granulocytes 0.4 0 - 0.5 % 03/04/2021 12:54 PM CDT [facility] Neutrophil Absolute 10.32(H) 1.56 - 6.13 x10E9/L 03/04/2021 12:54 PM CDT [facility] Lymphocytes Absolute 2.41 1.18 - 3.74 x10E9/L 03/04/2021 12:54 PM CDT [facility] Monocytes Absolute 1.03(H) 0.24 - 0.86 x10E9/L 03/04/2021 12:54 PM CDT [facility] Eosinophils Absolute 0.27 0.04 - 0.54 x10E9/L 03/04/2021 12:54 PM CDT [facility] Basophils Absolute 0.03 0.01 - 0.08 x10E9/L 03/04/2021 12:54 PM CDT [facility] Immature Granulocytes Absolute 0.05(H) 0 - 0.03 x10E9/L 03/04/2021 12:54 PM CDT [facility] nRBC Auto 0 <=0 /100 WBC 03/04/2021 12:54 PM CDT [facility] nRBC Absolute 0.00 <=0 x10E9/L 03/04/2021 12:54 PM CDT [facility] Blood BLOOD SPECIMEN / Unknown Venipuncture / Unknown 03/04/2021 9:34 AM CDT 03/04/2021 9:34 AM CDT [facility] - HEMATOLOGY ORD ERABLES Performing Organization Address City/State/[facility] Co de Phone Number [facility] [address] * URINALYSIS - POCT (IP) NOTIFICATION (03/04/2021 9:31 AM CDT) Comment Notification Label Only - See Separate Report 03/04/2021 11:00 AM CDT [facility] Urine URINE / Unknown 03/04/2021 9 :31 AM CDT 03/04/2021 9:31 AM CDT [facility] - URINALYSIS ORD ERABLES [facility] [address] [place] [address], [facility] documented in this encounter Visit Diagnoses Diagnosis Elevated blood pressure reading without diagnosis of hypertension- Primary Elevated blood pressure reading without diagnosis of hypertension documented in this encounter
--- OUTSIDE RECORDS SUMMARY | 2024-10-02 02:32 | XMS_ITS | Encounter Summary ---
Author Organization [facility] Health Address [address] [place] [address] Care Team Providers Care Enterprise Architect Name Role Phone Nenita Sexton MD Primary Care Provider [phone] Encounter Details Date Type Department Care Team (Latest Contact Info) Description 03/11/2021 Travel Social History Tobacco Use Types Packs/Day Years Used Date Smoking Tobacco: Never Smokeless Tobacco: Former Quit: 03/05/2018 Alcohol Use Standard Drinks/Week Comments Not Currently 0 (1 standard drink = 0.6 oz pur e alcohol) rarely PHQ-2 Answer Date Recorded PHQ2 TOTAL SCORE 3 03/12/2021 Sex and Gender Information Value Date Recorded Sex Assigned at Male 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
--- OUTSIDE RECORDS SUMMARY | 2024-10-02 02:32 | XMS_ITS | Encounter Summary ---
Author Organization [facility] Address [address] [place] [address] Care Team Providers Care It Disaster Recovery Manager Name Role Phone Unavailable Primary Care Provider Unavailabl e Encounter Details Date Type Department Care Team (Late st Contact Info) Description 03/04/2021 9:33 AM CDT - 03/04/2021 11:59 PM CDT Hospital Encounter [facility] [address] [place] [address] Jean Carlos Hensley PA 1 Jean Marie Cantrell Attn: 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 No / Unsure 03/04/2021 9:03 AM CDT documented as of this encounter Medications at Time of Discharge Medication Sig Dispensed Refills Start Date End Date HYDROcodone-acetaminophe n (NORCO) 5-325 MG tablet Take 1 tablet by mouth every 6 hours as needed for Pain 16 tablet 09/28/2019 03/05/2021 ondansetron (ZOFRAN) 4 MG tablet Take 1 tablet by mouth every 6 hours as needed for Nausea/Vomiting 16 tablet 09/28/2019 03/05/2021 documented as of this encounter Plan of Treatment Not on file documented as of this encounter Procedures Procedure Name Priority Date/Time Associated Diagnosis Comments CBC W AUTO DIFFERENTIAL Routine 03/04/2021 9:34 AM CDT Elevated blood pressure reading without diagnosis of hypertension documented in this encounter Results * (ABNORMAL) CBC WITH DIFFERENTIAL (03/04/2021 9:34 AM CDT) [facility] Signature WBC 14.1(H) 4.0 - 10.0 x10E9/L 03/04/2021 12:54 PM CDT [facility] RBC 5.45 4.40 - 6.10 x10E12/L 03/04/2021 12:54 PM CDT [facility] Hemoglobin 16.7 13.7 - 17.5 gm/dL 03/04/2021 12:54 PM T [facility] Hematocrit 48.7 40.1 - 51.0 % 03/04/2021 12:54 PM CDT [facility] MCV 89.4 78.0 - 100.0 fl 03/04/2021 12:54 PM CDT [facility] MCH 30.6 25.6 - 34.0 pg 03/04/2021 12:54 PM CDT [facility] MCHC 34.3 32.3 - 36.5 gm/dL 03/04/2021 12:54 PM CDT [facility] RDW 13.1 11.6 - 14.4 % 03/04/2021 12:54 PM CDT [facility] MPV 10.3 9.4 - 12.4 fl 03/04/2021 12:54 PM CDT [facility] Platelet Count 345 163 - 369 x10E9/L 03/04/2021 12:54 PM CDT [facility] Neutrophils % 73.1 40.0 - 75.0 % 03/04/2021 12:54 PM CDT [facility] Lymphocytes % 17.1(L) 19.3 - 53.1 % 03/04/2021 12:54 PM CDT [facility] Monocytes % 7.3 4.7 - 12.5 % 03/04/2021 12:54 PM CDT [facility] Eosinophils % 1.9 0.7 - 7.0 % 03/04/2021 12:54 PM CDT [facility] Basophils % 0.2 0.1 - 1.2 % 03/04/2021 12:54 PM CDT [facility] Immature Granulocytes 0.4 0 - 0.5 % 03/04/2021 12:54 PM CDT [facility] Neutrophil Absolute 10.32(H) 1.56 - 6.13 x10E9/L 03/04/2021 12:54 PM CDT [facility] Lymphocytes Absolute 2.41 1.18 - 3.74 x10E9/L 03/04/2021 12:54 PM CDT [facility] Monocytes Absolute 1.03(H) 0.24 - 0.86 x10E9/L 03/04/2021 12:54 PM CDT [facility] Eosinophils Absolute 0.27 0.04 - 0.54 x10E9/L 03/04/2021 12:54 PM T [facility] Basophils Absolute 0.03 0.01 - 0.08 x10E9/L 03/04/2021 12:54 PM T [facility] Immature Granulocytes Absolute 0.05(H) 0 - 0.03 x10E9/L 03/04/2021 12:54 PM CDT [facility] nRBC Auto 0 <=0 /100 WBC 03/04/2021 12:54 PM CDT [facility] nRBC Absolute 0.00 <=0 x10E9/L 03/04/2021 12:54 PM T [facility] Blood BLOOD SPECIMEN / Unknown Venipuncture / Unknown 03/04/2021 9:34 AM CDT 03/04/2021 9:34 AM CDT [facility] - HEMATOLOGY ORD ERABLES Performing Organization Address City/State/[facility] Co de Phone Number [facility] [address] documented in this encounter Visit Diagnoses Diagnosis Elevated blood pressure reading without diagnosis of hypertension documented in this encounter
--- OUTSIDE RECORDS SUMMARY | 2024-10-02 02:33 | XMS_ITS | Referral Summary ---
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 Comment:Testing performed by : [address] [address] Lymphocyte abs 4.9(H) 0.8 - 3.3 K/cumm [facility]ER[facility] Comment:Testing performed by : [address], [place]., [address] Monocyte abs 0.2 0.2 - 0.8 K/cumm [facility] Comment:Testing performed by : [address], [place]., [address] Eosinophil abs 0.3 0.0 - 0.5 K/cumm ELLIOT Comment:Testing performed by : [address] [address] Neutrophil pct 51.0 % [facility] Comment: Interpretive Data Percent cell count reference ranges are not reported, since discordance with absolute values may lead to misinterpretation of CBC data. Current Interpretive Data was last revised on 2018. Testing performed by: [address] [address] Lymphocyte pct 44.0 % [facility] Comment: Interpretive Data Percent cell count reference ranges are not reported, since discordance with absolute values may lead to misinterpretation of CBC data. Current Interpretive Data was last revised on 2018. Testing performed by: [address] [address] Monocyte pct 2.0 % [facility] Comment: Interpretive Data Percent cell count reference ranges are not reported, since discordance with absolute values may lead to misinterpretation of CBC data. Current Interpretive Data was last revised on 2018. Testing performed by: [address] [address] Eosinophil pct 3.0 % CERNER Comment: Interpretive Data Percent cell count reference ranges are not reported, since discordance with absolute values may lead to misinterpretation of CBC data. Current Interpretive Data was last revised on 2018. Testing performed by: [address] [address] Blood 09/20/2024 10:3 1 PM DECORATOR MANNEQUIN 09/20/2024 10:34 PM DECORATOR MANNEQUIN us Mohsen Orona DO LAB BLOOD ORDERABLES Final Res ult ELLIOT HINES 6[address] [facility] Department [place] [address] * eGFR (09/20/2024 9:22 PM DECORATOR MANNEQUIN) eGFR >90 >=60 mL/min/1. 73 m2 Comment: Interpretive Data Reference Interval Normal ?>/= 90 mL/min/1.73m2 Mildly decreased* ? 60 - 89 mL/min/1.73m2 Mildly to moderately decreased ?45 - 59 mL/min/1.73m2 Moderately to severely decreased ??30 - 44 mL/min/1.73m2 Severely decreased ?15 - 29 mL/min/1.73m2 Kidney Failure ?< 15 ??mL/min/1.73m2 *Relative to young adult level Estimated glomerular filtration rate is determined by the 2020 CKD-EPI equation recommended by the National Kidney Foundation (A Unifying Approach to GFR Estimation: Recommendations of the NKF-ASK Task Force on Reassessing the Inclusion of Race in Diagnosing Kidney Disease, JASN 2020). The CKD-EPI equation should not be used for patients with unstable renal function and has not been validated in children and those over 70. Current interpretive data was last reviewed 2021. Testing performed by: [facility], [address] [place] [address], [place]., [address] Blood 09/20/2024 9:22 PM DECORATOR MANNEQUIN 09/20/2024 9:25 PM DECORATOR MANNEQUIN us Chela GLASER LAB BLOOD ORDERABLES Final Resu lt ELLIOT 4500 [facility] Department [place] [address] * (ABNORMAL) Basic metabolic panel (09/20/2024 9:22 PM DECORATOR MANNEQUIN) Sodium 133(L) 135 - 145 mmol/L Comment:Testing performed by : [address] [address] Potassium, pl 4.1 3.3 - 4.9 mmol/L ELLIOT Comment:Testing performed by : [address] [address] Chloride 99 97 - 110 mmol/L ELLIOT Comment:Testing performed by : [address] [address] CO2 16(L) 22 - 32 mmol/L ELLIOT Comment:Testing performed by : [address] [address] Anion gap 18(H) 2 - 15 mmol/L ELLIOT Comment:Testing performed by : [address] [address] BUN 14 6 - 25 mg/dL ELLIOT Comment:Testing performed by : [address] [address] Creatinine 0.60(L) 0.80 - 1.30 mg/dL ELLIOT Comment:Testing performed by : [address] [address] Glucose 227(H) 70 - 199 mg/dL ELLIOT Comment: Delta - Results Reviewed Interpretive Data Fasting glucose >/= 126 mg/dl is diagnostic for diabetes. ?? Fasting is defined as no caloric intake for at least 8 hours. Fasting glucose between 100 mg/dl to 125 mg/dl is diagnostic of prediabetes. In a patient with classic symptoms of hyperglycemia or hyperglycemic crisis, a random glucose >/= 200 mg/dl is diagnostic for diabetes. In the absence of unequivocal hyperglycemia, results should be confirmed by repeat testing. The classification and Diagnosis of Diabetes Diabetes Care 2021; 46: S19-S40. Current interpretive data was last revised 2022. Testing performed by: [address] [address] Calcium 8.3(L) 8.5 - 10.3 mg/dL ELLIOT Comment:Testing performed by : [address] [address] Blood 09/20/2024 9:22 PM DECORATOR MANNEQUIN 09/20/2024 9:25 PM DECORATOR MANNEQUIN Chela GLASER LAB BLOOD ORDERABLES Final Resu lt Performing Organization Address [facility] de Phone Number [address] [place] [address] * (ABNORMAL) POCT glucose (09/20/2024 7:34 PM DECORATOR MANNEQUIN) Pathologist [facility] Glucose, POC 246(H) 70 - 199 mg/dL Comment:Testing performed by : [address] [address] Glucose comment 1 Use This Result ELLIOT Comment:Testing performed by : [address] [address] Glucose comment 2 RN/MD Notified ELLIOT Comment:Testing performed by : [address] [address] Blood 09/20/2024 7:34 PM DECORATOR MANNEQUIN 09/20/2024 7:34 PM DECORATOR MANNEQUIN Notinfile Unknown LAB POCT ORDERABLES - DEVICE F inal Result Performing Organization Address [facility] de Phone Number [address] [place] [address] * (ABNORMAL) POC Blood Gas and Chemistries, Venous - (09/20/2024 5:06 PM DECORATOR MANNEQUIN) Pathologist [facility] pH,carlton POC 7.36 7.32 - 7.43 Comment:Testing performed by : [address] [address] pCO2, [place] POC 36(L) 40 - 50 mmHg ELLIOT Comment:Testing performed by : [address] [address] pO2,[place] POC 49 mmHg ELLIOT Comment: Interpretive Data No reference range established. Current interpretive data was last revised 2020. Testing performed by: [address] [address] HCO3, [place] (Calc) POC 20 20 - 30 mmol/L ELLIOT Comment:Testing performed by : [address] [address] Base excess, carl[place] POC -4 mmol/L ELLIOT Comment: Interpretive Data No reference range established. Current interpretive data was last revised 2020. Testing performed by: [address] [address] Blood 09/20/2024 5:06 PM DECORATOR MANNEQUIN 09/20/2024 5:06 PM DECORATOR MANNEQUIN us Notinfile Unknown LAB POCT ORDERABLES - DEVICE F inal Result Performing Organization Address [facility] Co de Phone Number [address] [employer] [place] [address] * (ABNORMAL) POCT glucose (09/20/2024 4:57 PM DECORATOR MANNEQUIN) [facility] Signature Glucose, POC 350(H) 70 - 199 mg/dL Comment:Testing performed by : [address] [address] Blood 09/20/2024 4:57 PM DECORATOR MANNEQUIN 09/20/2024 4:57 PM DECORATOR MANNEQUIN us Notinfile Unknown LAB POCT ORDERABLES - DEVICE F inal Result Performing Organization Address [facility] Co de Phone Number [address] [place] [address] * CT Head WO Contrast (09/20/2024 4:34 PM DECORATOR MANNEQUIN) Anatomical Region Laterality Modality Head and Neck N/A Computed Tomogra phy 09/20/2024 5:09 PM DECORATOR MANNEQUIN Narrative 09/20/2024 5:12 PM DECORATOR MANNEQUIN EXAM DESCRIPTION: CT HEAD WO CONTRAST REASON FOR STUDY: Headache, chronic, new features or increased frequency ?Patient here today with migraine/headache x2 weeks. Patient reports calling PCP who told him to come be seen. Reports associated photophobia and phonophobia. Attempted Excedrin migraine without relief. Had been taking medication for diabetes which had ?? been causing headache, however is unable to get headache to go away. ? TECHNIQUE: Axial images acquired through the brain without intravenous contrast. ??Images stored on PACS. ?? Automated exposure control was used as a dose optimization technique for this examination. COMPARISON: None FINDINGS: BRAIN: ?? No gross intraparenchymal hemorrhage, mass or edema. ? Normal brady-white differentiation. ??No hydrocephalus. ? EXTRA-AXIAL SPACES: ?? No fluid collections. No masses. CALVARIUM: ?? No fracture. SINUSES/MASTOIDS: ?? Mild-moderate mucosal thickening within the ethmoid sinuses. ORBITS: ?? No significant abnormality. OTHER: ?? No other significant abnormality. IMPRESSION: 1. ?? No gross acute intracranial abnormality. THIS IS AN ELECTRONICALLY VERIFIED FINAL REPORT 09/20/2024 5:12 PM - Electronically signed by ??Fareed Weaver M.D. AG: CORNELIO D: ??09/20/2024 5:12 PM T: ??09/20/2024 5:12 PM Report ID: [id number] Reading Location: ??[id number] Procedure Note Fareed Weaver MD - 09/20/2024 EXAM DESCRIPTION: CT HEAD WO CONTRAST REASON FOR STUDY: Headache, chronic, new features or increased frequency Patient here today with migraine/headache x2 weeks. Patient reportscalling PCP who told him to come be seen. Reports associated photophobia and phonophobia. Attempted Excedrin migraine without relief. Had been taking medication for diabetes which had been causing headache, however isunable to get headache to go away. TECHNIQUE: Axial images acquired through the brain without intravenous contrast. Images stored on PACS. Automated exposure control was used asa dose optimization technique for this examination. COMPARISON: None FINDINGS: BRAIN: No gross intraparenchymal hemorrhage, mass or edema. Normal brady-white differentiation. No hydrocephalus. EXTRA-AXIAL SPACES: No fluid collections. No masses. CALVARIUM: No fracture. SINUSES/MASTOIDS: Mild-moderate mucosal thickening within the ethmoid sinuses. ORBITS: No significant abnormality. OTHER: No other significant abnormality. IMPRESSION: 1. No gross acute intracranial abnormality. THIS IS AN ELECTRONICALLY VERIFIED FINAL REPORT 09/20/2024 5:12 PM - Electronically signed by Fareed Weaver M.D. AG: CORNELIO Report ID: [id number] Reading Location: [place] [address] Chela GLASER [facility] [place] PROCEDURES Final Result * (ABNORMAL) Urinalysis reflex to microscopic and culture Urine (09/20/2024 2:37 PM DECORATOR MANNEQUIN) Color, ur Straw Yellow Comment:Testing performed by : [address] [address] Clarity, ur Clear Clear ELLIOT Comment:Testing performed by : [address] [address] Specific gravity, ur 1.035(H) 1.003 - 1.030 ELLIOT Comment:Testing performed by : [address] [address] pH, urine 5.5 ELLIOT Comment: Interpretive Data ? Urine pH is affected by diet, medications, systemic acid-base disturbances, and renal tubular function. ??pH may affect urinary stone formation. ??For example, urine pH below 6.0 may help reduce the tendency for calcium phosphate stones and pH greater than 6.0 may reduce the tendency for uric acid stone formation. Source: [employer] Current Interpretive Data was last revised on 2017 Testing performed by: [address] [address] Protein, ur ql 1+(A) Negative ELLIOT Comment:Testing performed by : [address] [address] Glucose, ur ql 4+(A) Negative ELLIOT Comment:Testing performed by : [address], [place]., [address] Ketones, ur 1+(A) Negative ELLIOT HINES Comment:Testing performed by : [address], [place]., [address] Bilirubin, ur Negative Negative ELLIOT Comment:Testing performed by : [address], [place]., [address] Blood, ur Negative Negative ELILOT Comment:Testing performed by : [address], [place]., [address] Urobilinogen, ur <2.0 <2.0 mg/dL ELLIOT Comment:Testing performed by : [address], [place]., [address] Nitrite, ur Negative Negative ELLIOT Comment:Testing performed by : [address], [place]., [address] Leukocyte esterase, ur Negative Negative ELLIOT Comment:Testing performed by : [address], [place]., [address] UA reflex comment Reflex to microscopic UA will be performed. ELLIOT Comment:Testing performed by : [address], [place]., [address] Urine 09/20/2024 2:37 PM DECORATOR MANNEQUIN 09/20/2024 2:52 PM DECORATOR MANNEQUIN Mohsen Orona DO LAB MICROBIOLOGY - GENERAL ORD ERABLES Final Result ELLIOT 2391 [facility] Department [place] [address] * Urinalysis, microscopic only (09/20/2024 2:37 PM DECORATOR MANNEQUIN) WBC, ur 0-5 0 - 5 /HPF Comment:Testing performed by : [address], [place]., [address] RBC, ur 0-2 0 - 2 /HPF ELLIOT HINES Comment:Testing performed by : [address], [place]., [address] Epithelial cells, squamous, ur 1-5 0 - 5 /HPF ELLIOT HINES Comment:Testing performed by : [facility], [address] [place] [address]., [address] Culture Reflex Comment Reflex conditions for urine culture (WBC >10) not met. ELLIOT HINES Comment:Testing performed by : [facility], [address] [place] [address]., [address] Urine 09/20/2024 2:37 PM DECORATOR MANNEQUIN 09/20/2024 2:52 PM DECORATOR MANNEQUIN us Mohsen Orona DO LAB URINE ORDERABLES Final Res ult ELLIOT 4390 [facility] Department [place] [address] * eGFR (09/20/2024 2:33 PM DECORATOR MANNEQUIN) eGFR >90 >=60 mL/min/1. 73 m2 Comment: Interpretive Data Reference Interval Normal ?>/= 90 mL/min/1.73m2 Mildly decreased* ? 60 - 89 mL/min/1.73m2 Mildly to moderately decreased ?45 - 59 mL/min/1.73m2 Moderately to severely decreased ??30 - 44 mL/min/1.73m2 Severely decreased ?15 - 29 mL/min/1.73m2 Kidney Failure ?< 15 ??mL/min/1.73m2 *Relative to young adult level Estimated glomerular filtration rate is determined by the 2020 CKD-EPI equation recommended by the National Kidney Foundation (A Unifying Approach to GFR Estimation: Recommendations of the NKF-ASK Task Force on Reassessing the Inclusion of Race in Diagnosing Kidney Disease, JASN 2020). The CKD-EPI equation should not be used for patients with unstable renal function and has not been validated in children and those over 70. Current interpretive data was last reviewed 2021. Testing performed by: [address] [address] Blood 09/20/2024 2:33 PM DECORATOR MANNEQUIN 09/20/2024 2:39 PM DECORATOR MANNEQUIN us Mohsen Orona DO LAB BLOOD ORDERABLES Final Res ult [facility] 6751 [facility] Department [place] [address] * (ABNORMAL) Differential, auto (09/20/2024 2:33 PM DECORATOR MANNEQUIN) Neutrophil abs 8.9(H) 1.5 - 6.5 K/cumm Comment:Testing performed by : [address] [address] Imm gran abs 0.1 0.0 - 0.1 K/cumm ELLIOT Comment:Testing performed by : [address] [address] Lymphocyte abs 2.7 0.8 - 3.3 K/cumm ELLIOT Comment:Testing performed by : [address] [address] Monocyte abs 1.0(H) 0.2 - 0.8 K/cumm ELLIOT Comment:Testing performed by : [address] [address] Eosinophil abs 0.3 0.0 - 0.5 K/cumm ELLIOT Comment:Testing performed by : [address] [address] Basophil abs 0.1 0.0 - 0.1 K/cumm [facility] Comment:Testing performed by : [address] [address] Neutrophil pct 67.6 % ELLIOT Comment: Interpretive Data Percent cell count reference ranges are not reported, since discordance with absolute values may lead to misinterpretation of CBC data. Current Interpretive Data was last revised on 2018. Testing performed by: [address] [address] Imm gran pct 1.1 % ELLIOT Comment: Interpretive Data Percent cell count reference ranges are not reported, since discordance with absolute values may lead to misinterpretation of CBC data. Current Interpretive Data was last revised on 2018. Testing performed by: [address] [address] Lymphocyte pct 20.5 % ELLIOT Comment: Interpretive Data Percent cell count reference ranges are not reported, since discordance with absolute values may lead to misinterpretation of CBC data. Current Interpretive Data was last revised on 2018. Testing performed by: [address] [address] Monocyte pct 7.7 % [facility] Comment: Interpretive Data Percent cell count reference ranges are not reported, since discordance with absolute values may lead to misinterpretation of CBC data. Current Interpretive Data was last revised on 2018. Testing performed by: [address] [address] Eosinophil pct 2.6 % [facility] Comment: Interpretive Data Percent cell count reference ranges are not reported, since discordance with absolute values may lead to misinterpretation of CBC data. Current Interpretive Data was last revised on 2018. Testing performed by: [address] [address] Basophil pct 0.5 % [facility] Comment: Interpretive Data Percent cell count reference ranges are not reported, since discordance with absolute values may lead to misinterpretation of CBC data. Current Interpretive Data was last revised on 2018. Testing performed by: [address] [address] Blood 09/20/2024 2:33 PM DECORATOR MANNEQUIN 09/20/2024 2:39 PM DECORATOR MANNEQUIN us Mohsen Orona DO LAB BLOOD ORDERABLES Final Res ult ELLIOT HINES 7[address] [facility] Department [place] [address] * (ABNORMAL) Beta-hydroxybutyrate (09/20/2024 2:33 PM DECORATOR MANNEQUIN) Beta-Hydroxybut yrate 2.9(H) <=0.5 mmol/L Blood 09/20/2024 2:33 PM DECORATOR MANNEQUIN 09/20/2024 6:47 PM DECORATOR MANNEQUIN us Mohsen Orona DO LAB BLOOD ORDERABLES Final Res ult ELLIOT 45[address] [facility] Department [place] [address] * (ABNORMAL) CBC with auto differential (09/20/2024 2:33 PM DECORATOR MANNEQUIN) WBC 13.1(H) 3.8 - 9.9 K/cumm Comment:Testing performed by : [address] [address] Hgb 20.7(C) 13.0 - 17.5 g/dL ELLIOT HINES Comment: Critical result called to and read back by [email or web address] on 09 20 2024 at 1531 to Venita Liu. Testing performed by: [address] [address] Hct 36.2(L) 38.9 - 50.3 % ELLIOT HINES Comment:Testing performed by : [address] [address] Plt 375 150 - 400 K/cumm ELLIOT HINES Comment:Testing performed by : [address], [address] MPV 9.4 9.1 - 12.3 fL ELLIOT HINES Comment:Testing performed by : [address], [address] RBC 4.35 4.30 - 5.80 M/cumm ELLIOT HINES Comment:Testing performed by : [address], [address] MCV 83.2 81.3 - 96.4 fL ELLIOT HINES Comment:Testing performed by : [address], [address] MCH 47.6(H) 27.1 - 33.3 pg ELLIOT HINES Comment:Testing performed by : [address] [address] MCHC 57.2(H) 32.3 - 35.7 g/dL ELLIOT HINES Comment:Testing performed by : [address] [address] RDW CV 13.5 11.1 - 14.9 % ELLIOT HINES Comment:Testing performed by : [address] [address] RDW SD 41.1 35.7 - 48.1 fL ELLIOT HINES Comment:Testing performed by : [address] [address] NRBC abs 0.00 0.00 - 0.01 K/cumm ELLIOT HINES Comment:Testing performed by : [address] [address] Blood 09/20/2024 2:33 PM DECORATOR MANNEQUIN 09/20/2024 2:39 PM DECORATOR MANNEQUIN Mohsen Orona DO LAB BLOOD ORDERABLES Final Res ult ELLIOT 45[address] [facility] Department of Laboratories [place], [place] [id number] * (ABNORMAL) Comprehensive metabolic panel (09/20/2024 2:33 PM DECORATOR MANNEQUIN) Sodium 126(L) 135 - 145 mmol/L Comment:Testing performed by : [address] [address] Potassium, pl 4.4 3.3 - 4.9 mmol/L ELLIOT HINES Comment:Testing performed by : [address] [address] Chloride 88(L) 97 - 110 mmol/L ELLIOT HINES Comment:Testing performed by : [address] [address] CO2 19(L) 22 - 32 mmol/L ELLIOT HINES Comment:Testing performed by : [address] [address] Anion gap 19(H) 2 - 15 mmol/L ELLIOT HINES Comment:Testing performed by : [address] [place] [address] BUN 14 6 - 25 mg/dL ELLIOT Comment:Testing performed by : [address] [address] Creatinine 0.60(L) 0.80 - 1.30 mg/dL ELLIOT Comment:Testing performed by : [address] [address] Glucose 456(C) 70 - 199 mg/dL ELLIOT Comment: Interpretive Data Fasting glucose >/= 126 mg/dl is diagnostic for diabetes. ?? Fasting is defined as no caloric intake for at least 8 hours. Fasting glucose between 100 mg/dl to 125 mg/dl is diagnostic of prediabetes. In a patient with classic symptoms of hyperglycemia or hyperglycemic crisis, a random glucose >/= 200 mg/dl is diagnostic for diabetes. In the absence of unequivocal hyperglycemia, results should be confirmed by repeat testing. The classification and Diagnosis of Diabetes Diabetes Care 2021; 46: S19-S40. Current interpretive data was last revised 2022. Testing performed by: [address] [address] Calcium 9.4 8.5 - 10.3 mg/dL ELLIOT Comment:Testing performed by : [address] [address] Bilirubin, total 0.3 0.1 - 1.2 mg/dL ELLIOT Comment:Testing performed by : [address] [address] Protein, pl 6.6 6.5 - 8.5 g/dL ELLIOT Comment:Testing performed by : [address] [address] Albumin 3.9 3.5 - 5.0 g/dL ELLIOT Comment: Lipemic specimen Testing performed by: [address] [address] Alk phos 87 40 - 130 Units/L ELLIOT Comment:Testing performed by : [address] [address] ALT 5(L) 7 - 55 Units/L ELLIOT Comment: Lipemic specimen Testing performed by: [address] [place] [address] AST 5(L) 10 - 50 Units/L ELLIOT Comment: HEMOLYZED: Hemolysis interferes with the above test. Lipemic specimen Testing performed by: [address] [address] Blood 09/20/2024 2:33 PM DECORATOR MANNEQUIN 09/20/2024 2:39 PM DECORATOR MANNEQUIN Narrative ELLIOT - 09/20/2024 3:58 PM DECORATOR MANNEQUIN Critical result called to and read back by [email or web address] (_) on 09/20/2024 15:57:20 CST_ to [id number] us Mohsen Orona DO LAB BLOOD ORDERABLES Final Res ult Performing Organization Address [facility] Co de Phone Number [address] [place] [address] * (ABNORMAL) POCT glucose (09/20/2024 2:31 PM DECORATOR MANNEQUIN) [facility] Glucose, POC 461(C) 70 - 199 mg/dL Comment:Testing performed by : [address] [address] Glucose comment 1 RN/MD Notified ELLIOT Comment:Testing performed by : [address] [address] Glucose comment 2 Use This Result ELLIOT Comment:Testing performed by : [address] [address] Blood 09/20/2024 2:31 PM DECORATOR MANNEQUIN 09/20/2024 2:31 PM DECORATOR MANNEQUIN us Notinfile Unknown LAB POCT ORDERABLES - DEVICE F inal Result Performing Organization Address [facility] Co de Phone Number [address] [place], [place] [address] * (ABNORMAL) Hemoglobin A1c (03/20/2024 8:14 AM CDT) [facility] Hgb A1C 7.7(H) 4.0 - 5.6 % Comment:Testing performed by : [address] [address] Estimated Average Glucose 174 mg/dL ELLIOT HINES Comment: The ADA recommends reporting an estimated Average Glucose (eAG) with all Hemoglobin A1c results using the equation derived from a study of 507 normal and diabetic adults. ??Minority populations were underrepresented and children were not included. ?? (Diabetes Care 31:7246-5176, 2008). ??The eAG is not equivalent to a fasting glucose. Testing performed by: [address] [address] Blood 03/20/2024 8:14 AM CDT 03/20/2024 10:17 AM CDT Preston GLASER LAB BLOOD ORDERABLES Final Resu lt ELLIOT 29[address] [facility] Department [place] [address] * (ABNORMAL) Lipid panel (03/20/2024 8:14 AM CDT) Pathologist [facility] Cholesterol 300(H) 30 - 199 mg/dL Comment: Interpretive Data Ages < or = 19 years ??Acceptable: ? <170 mg/dL ??Borderline high: ??170-199 mg/dL ??High: ? >or= 200 mg/dL Ages > or = 20 years ??Desirable: ?<200 mg/dL ??Borderline high: ??200-239 mg/dL ??High: ? >or= 240 mg/dL Literature References: 1. Expert Panel on Integrated Guidelines for Cardiovascular Health and Risk Reduction in Children and Adolescents. Pediatrics 2011;128:S213 2. NCEP Expert Panel. Circulation 2004;110:227 Current Interpretive Data was last revised on 2018. Testing performed by: [address] [address] Triglycerides 2,236(H) <=149 mg/dL ELLIOT HINES Comment: Interpretive Data Ages < or = 9 years ??Acceptable: ? <75 mg/dL ??Borderline high: ??75-99 mg/dL ??High: ? >or= 100 mg/dL Ages 10 to 20 years ??Acceptable: ? <90 mg/dL ??Borderline high: ??90-129 mg/dL ??High: ? >or= 130 mg/dL Ages > or = 20 years ??Desirable: ?<150 mg/dL ??Borderline high: ??150-199 mg/dL ??High: ? 200-499 mg/dL ?Very high: ?? >or= 499 mg/dL Literature References: 1. Expert Panel on Integrated Guidelines for Cardiovascular Health and Risk Reduction in Children and Adolescents. Pediatrics 2011;128:S213 2. NCEP Expert Panel. Circulation 2004;110:227 Current Interpretive Data was last revised on 2018. Testing performed by: [address] [address] HDL 18(L) >=40 mg/dL ELLIOT HINES Comment: Interpretive Data Ages < or = 19 years ??Acceptable: ? >45 mg/dL ??Borderline low: ?? 40-45 mg/dL ??Low: ? <40 mg/dL Ages > or = 20 years ??Desirable: ?>or= 60 mg/dL ??Low: ? <40 mg/dL Literature References: 1. Expert Panel on Integrated Guidelines for Cardiovascular Health and Risk Reduction in Children and Adolescents. Pediatrics 2011;128:S213 2. NCEP Expert Panel. Circulation 2004;110:227 Current Interpretive Data was last revised on 2018. Testing performed by: [address] [address] LDL, calculated See Comment <=129 mg/dL ELLIOT HINES Comment: Unable to calculate due to elevated Triglycerides. Interpretive Data Ages < or = 19 years ??Acceptable: ? <110 mg/dL ??Borderline high: ??110-129 mg/dL ??High: ?>or= 130 mg/dL Ages > or = 20 years ??Optimal: ? <100 mg/dL ??Near optimal: ?100-129 mg/dL ??Borderline high: ?? 130-159 mg/dL ??High: ?>160 mg/dL Literature References: 1. Expert Panel on Integrated Guidelines for Cardiovascular Health and Risk Reduction in Children and Adolescents. Pediatrics 2011;128:S213 2. NCEP Expert Panel. Circulation 2004;110:227 Current Interpretive Data was last revised on 2018. Testing performed by: [address] [address] Non-HDL Cholesterol 282 mg/dL ELLIOT HINES Comment: Interpretive Data Ages < or = 19 years ??Acceptable: ?<120 mg/dL ??Borderline high: ??120-144 mg/dL ??High: ?>145 mg/dL Ages > or = 20 years ??When triglycerides are >200 mg/dL, Non-HDL cholesterol is a secondary target of ? therapy with treatment goals that are 30 mg/dL greater than the LDL cholesterol target. ? Literature References: 1. Expert Panel on Integrated Guidelines for Cardiovascular Health and Risk Reduction in Children and Adolescents. Pediatrics 2011;128:S213 2. NCEP Expert Panel. Circulation 2004;110:227 Current Interpretive Data was last revised on 2018. Testing performed by: [address] [address] Chol/HDL ratio 17 ELLIOT Comment:Testing performed by : [address] [address] Blood 03/20/2024 8:14 AM CDT 03/20/2024 11:55 AM CDT us Preston GLASER LAB BLOOD ORDERABLES Final Resu lt ELLIOT [address] [facility] Department [place] [address] * (ABNORMAL) Albumin Creatinine Ratio, Urine (03/20/2024 8:08 AM CDT) Albumin Ur 266.8 mg/L Comment: Interpretive Data No reference range established. Current interpretive data was last revised 2019. Testing performed by: [address] [address] Creatinine Ur 54.6 mg/dL ELLIOT Comment: Interpretive Data No reference range established. Current interpretive data was last revised 2019. Testing performed by: [address] [address] Albumin Creatinine Ratio, Ur 489(H) 1 - 29 mg/g ELLIOT Comment:Testing performed by : [address] [address] Urine 03/20/2024 8:08 AM CDT 03/20/2024 10:15 AM CDT us Preston GLASER LAB URINE ORDERABLES Final Resu lt ELLIOT [address] [facility] Department [place] [address] * Diabetic Eye Exam (02/24/2023) us Historical Provider HEALTH MAINTENANCE Final Result from Last 3 Months or Most Recently Relevant to Health Maintenance Insurance [facility] ANTHEM PREFERRED [facility] AN[facility] PREFERRED ANTHEM PREFERRED Member Subscriber Plan / Payer (Ef fective 2022-Present) Name:Chadwick Holcomb Relation to Subscriber:Self Name:Chadwick Holcomb Payer ID:[id number] (NAIC) Type:[employer] Address: [address] [place] [id number] [facility] Advance Directives For more information, please contact: [phone] * Full Code (Latest Code Status on File) Date Activated Date Inactivated Comments 10/21/2023 10:59 AM 10/22/2023 6:08 PM * Full Code Date Activated Date Inactivated Comments 02/10/2023 8:16 PM 02/15/2023 5:15 PM Care Teams Ham Smoker Relationship Specialty Start Date End Date Preston Moulton PA PCP - General Family Medicine 03/10/23
--- OUTSIDE RECORDS SUMMARY | 2024-10-02 02:33 | XMS_ITS | Encounter Summary ---
Author Organization [facility] Healthcare Address [address] [place] [address] Care Team Providers Care Manager Lpn Name Role Phone Preston Moulton Primary Care Provider [phone] Reason for Visit * Reason Onset Date Comments Drug Change Request 11/22/2023 Encounter Details Date Type Department Care Team (Late st Contact Info) Description 11/22/2023 Telephone [facility] Medical Group Primary Care [facility] [address] Betsy Salinas [place] Drug Change Request Social History Tobacco Use Types Packs/Day Years Used Date Smoking Tobacco: Never Social Connection and Isolat ion Panel [NHANES] Answer Date Recorded In a typical week, how many times do you talk on the phone with family, friends, or neighbors? More than three times a week 02/11/2023 How often do you get togethe r with friends or relatives? More than three times a week 02/11/2023 How often do you attend chur ch or zoroastrianism services? More than 4 times per year 02/11/2023 Do you belong to any clubs o r organizations such as baptism groups, unions, fraternal or athletic groups, or school groups? No 02/11/2023 How often do you attend meet ings of the clubs or organizations you belong to? Never 02/11/2023 Are you , , di vorced, , never , or living with a partner? Never 02/11/2023 AUDIT-C Answer Date Recorded Q1: How often do you have a drink containing alc ohol? Monthly or less 11/21/2023 Q2: How many drinks containi ng alcohol do you have on a typical day when you are drinking? 1 or 2 11/21/2023 Frequency of Binge Drinking Not on file 10/28 Overall Financial Resource Strain (CARDIA) Answe r Date Recorded How hard is it for you to pa y for the very basics like food, housing, medical care, and heating? Not hard at all 02/11/2023 PHQ-2 Answer Date Recorded PHQ-2 Total Score (If total score is 3 or more points, staff should administer the PHQ-9) 3 02/08/2023 Hunger Vital Sign Answer Date Recorded Within [...] place to sleep or slept in a alf (including now)? No 02/11/2023 Personal Safety Answer Date Recorded Have you ever been in or are you currently in a harmful physical or emotional relationship or is someone making you feel afraid or unsafe? Denies 10/21/2023 Sex and Gender Information Value Date Recorded Sex Assigned at Not on file Legal Sex Male 9:22 AM PRIMER BOXER Gender Identity Male 11/18/2021 1:25 PM PRIMER BOXER Sexual Orientation Straight 11/18/2021 1: 25 PM PRIMER BOXER documented as of this encounter Miscellaneous Notes * Telephone Encounter - Betsy Salinas, [place] - 11/22/2023 5:09 PM PRIMER BOXER PABoyer sent new prescription ER BOXER * Telephone Encounter - Betsy Salinas MA - 11/22/2023 10:09 AM PRIMER BOXER Shawna's sent fax--Metformin ER is not covered by patient plan. The preferred alternative is Metformin tab. ER BOXER documented in this encounter Plan of Treatment Not on file documented as of this encounter Visit Diagnoses Not on filedocumented in this encounter Care Teams Manager Lpn Relationship Specialty Start Date End Date Preston Moulton PA PCP - General Family Medicine 03/10/23 documented as of this encounter
--- OUTSIDE RECORDS SUMMARY | 2024-10-02 02:33 | XMS_ITS | Encounter Summary ---
Author Organization [facility] Address [address] [place] [address] Care Team Providers Care Engraver Apprentice Decorative Name Role Phone Unavailable Primary Care Provider Unavailabl e Reason for Visit * Reason Onset Date Comments Employment Physical 12/06/2017 Encounter Details Date Type Department Care Team (Late st Contact Info) Description 12/06/2017 4:30 PM CDT Office Visit [facility] - Family Medicine [address] 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 Please see scanned copy of paper formfor full documentation. documented in this encounter Plan of Treatment Not on file documented as of this encounter Visit Diagnoses Diagnosis Pre-employment health screening examination- Primary Health examination of defined subpopulation documented in this encounter
--- OUTSIDE RECORDS SUMMARY | 2024-10-02 02:33 | XMS_ITS | Encounter Summary ---
Author Organization [facility] Healthcare Address [address] [place] [address] Care Team Providers Care Certified Green Building Engineer Name Role Phone Preston Moulton Primary Care Provider [phone] Reason for Visit * Reason Comments Diabetes Encounter Details Date Type Department Care Team (Late st Contact Info) Description 11/21/2023 3:00 PM WARDROBE MISTRESS Office Visit [facility] Medical Group Primary Care [facility] [address] Preston Moulton PA [address] [place] [address] Other headache syndrome (Primary Dx); Palpitations; Type 2 diabetes mellitus with hyperglycemia, with long-term current use of insulin (CMS/HCC) (HCC); Mixed hyperlipidemia; Type 2 diabetes mellitus with hyperglycemia, without long-term current use of insulin (CMS/HCC) (HCC) Social History Tobacco Use Types Packs/Day Years [...] 02/11/2023 How often do you attend chur or latter-day services? More than 4 times per year 02/11/2023 Do you belong to any clubs o r organizations such as taoism groups, unions, fraternal or athletic groups, or [...] money to buy more. Never true 02/12/20 23 Within the past 12 months, t he [...] place to sleep or slept in a longterm (including now)? No 02/11/2023 Personal Safety Answer Date Recorded Have you ever been in or are you currently in a harmful physical or emotional relationship or is someone making you feel afraid or unsafe? Denies 10/21/2023 Sex and Gender Information Value Date Recorded Sex Assigned at Not on file Legal Sex Male 9:22 AM WARDROBE MISTRESS Gender Identity Male 11/18/2021 1:25 PM WARDROBE MISTRESS Sexual Orientation Straight 11/18/2021 1: 25 PM WARDROBE MISTRESS documented as of this encounter Last Filed Vital Signs Vital Sign Reading Time Taken Comments Blood Pressure 116/80 11/21/2023 2:49 PM WARDROBE MISTRESS Pulse 98 11/21/2023 2:49 PM WARDROBE MISTRESS Temperature 36.1 ??C (97 ??F) 11/21/2023 2:49 PM WARDROBE MISTRESS Respiratory Rate 16 11/21/2023 2:49 PM WARDROBE MISTRESS Oxygen Saturation 97% 11/21/2023 2:49 PM WARDROBE MISTRESS Inhaled Oxygen Concentration - - Weight 79.4 kg (175 lb) 11/21/2023 2:49 PM WARDROBE MISTRESS Height 172.7 cm (5' 7.99 ) 11/21/2023 2:49 PM CS T Body Mass Index 26.62 11/21/2023 2:49 PM WARDROBE MISTRESS documented in this encounter Ordered Prescriptions Prescription Sig Dispense Quantity Refills Last Filled Start Date End Date empagliflozin (JARDIANCE) 25 mg tablet Take 1 tablet (25 mg total) by mouth daily 90 tablet 3 11/21/2023 4 metFORMIN XR (GLUCOPHAGE XR) 500 mg 24 hr tabletIndications: Type 2 diabetes mellitus with hyperglycemia, without long-term current use of insulin (HCC) Take 2 tablets (1,000 mg total) by mouth 2 (two) times a day after breakfast and dinner Take 3 tablets nightly. E11.65 360 tablet 3 11/21/2023 4 documented in this encounter Progress Notes * Preston Moulton, ALFREDITO - 11/21/2023 3:00 PM CST Images from the original note were not included. Subjective/Objective Patient ID: Chadwick Holcomb is a 43 y.o. male. Chief Complaint Diabetes Patient is in for routine follow-up for the following medical conditions Diagnoses and all orders for this visit: Other headache syndrome (Primary): controlled Palpitations:controlled Type 2 diabetes mellitus with hyperglycemia, with long-term current use of insulin (CMS/HCC) (HCC):taking Mixed hyperlipidemia: taking meds Vitals: 11/21/23 1449 BP: 116/80 BP Location: Left arm Patient Position: Sitting Pulse: 98 Resp: 16 Temp: 36.1 ??C (97 ??F) TempSrc: Temporal SpO2: 97% Weight: 79.4 kg (175 lb) Height: 172.7 cm (5' 7.99 ) Physical Exam Constitutional: General: He is not in acute distress. Appearance: He is well-developed. HENT: Head: Normocephalic. Right Ear: External ear normal. Left Ear: External ear normal. Nose: Nose normal. Eyes: Pupils: Pupils are equal, round, and reactive to light. Cardiovascular: Rate and Rhythm: Normal rate and regular rhythm. Heart sounds: Normal heart sounds. Pulmonary: Breath sounds: Normal breath sounds. Abdominal: General: Bowel sounds are normal. Palpations: Abdomen is soft. Musculoskeletal: General: Normal range of motion. Cervical back: Neck supple. Skin: General: Skin is warm and dry. Assessment/Plan Diagnoses and all orders for this visit: Other headache syndrome (Primary) Assessment & Plan: This is currently well controlled will continue to follow Palpitations Assessment & Plan: He has a nearly non-existent will continue to follow Type 2 diabetes mellitus with hyperglycemia, with long-term current use of insulin ([facility] ([facility]) Assessment & Plan: This is poorly controlled we had a long discussion about the importance of compliance he routinely misses his lunchtime insulin and he admits he eats very poorly and drink soda we discussed the ramifications of uncontrolled diabetes am going to get him on some Jardiance along with his current medications were going to recheck A1c in 8 weeks Orders: - POCT hemoglobin A1c Mixed hyperlipidemia Assessment & Plan: Patient is to continue present medications, work on diet and exercise as discussed, we did discuss the medications and potential side effects and signs and symptoms that would warrant calling office.Follow up routine. Type 2 diabetes mellitus with hyperglycemia, without long-term current use of insulin ([facility] ([facility]) - metFORMIN XR (GLUCOPHAGE XR) 500 mg 24 hr tablet; Take 2 tablets (1,000 mg total) by mouth 2 (two) times a day after breakfast and dinner Take 3 tablets nightly. E11.65 Other orders - empagliflozin (JARDIANCE) 25 mg tablet; Take 1 tablet (25 mg total) by mouth daily Orders Placed This Encounter Procedures POCT hemoglobin A1c The rational for all recommendations, as well as relative risks, are discussed with the patient in detail. The patient expresses understanding, comfort and agreement with the plan, all questions are answered. ALFREDITO Rivas ROBE MISTRESS documented in this encounter Miscellaneous Notes * Assessment & Plan Note - Preston Moulton PA - 11/21/2023 4:41 PM CSTAssociated Problem(s): Mixed hyperlipidemia Patient is to continue present medications, work on diet and exercise as discussed, we did discuss the medications and potential side effects and signs and symptoms that would warrant calling office.Follow up routine. ROBE MISTRESS * Assessment & Plan Note - Preston Moulton PA - 11/21/2023 4:41 PM CSTAssociated Problem(s): Type 2 diabetes mellitus with hyperglycemia, with long-term current use of insulin (HCC) This is poorly controlled we had a long discussion about the importance of compliance he routinely misses his lunchtime insulin and he admits he eats very poorly and drink soda we discussed the ramifications of uncontrolled diabetes am going to get him on some Jardiance along with his current medications were going to recheck A1c in 8 weeks ROBE MISTRESS * Assessment & Plan Note - Preston Moulton PA - 11/21/2023 4:40 PM CSTAssociated Problem(s): Palpitations He has a nearly non-existent will continue to follow ROBE MISTRESS * Assessment & Plan Note - Preston Moulton PA - 11/21/2023 4:40 PM CSTAssociated Problem(s): Other headache syndrome This is currently well controlled will continue to follow ROBE MISTRESS documented in this encounter Plan of Treatment Not on file documented as of this encounter Procedures Procedure Name Priority Date/Time Associated Diagnosis Comments POCT HEMOGLOBIN A1C Routine 11/21/2023 3 :05 PM WARDROBE MISTRESS Type 2 diabetes mellitus with hyperglycemia, with long-term current use of insulin ([facility]/HCC) (HCC) documented in this encounter Results * (ABNORMAL) POCT hemoglobin A1c (11/21/2023 3:05 PM WARDROBE MISTRESS) Hemoglobin A1C, POC 9.8 % Blood 11/21/2023 3:05 PM WARDROBE MISTRESS Narrative Betsy Salinas MA - 11/21/2023 3:05 PM WARDROBE MISTRESS Lot# [id number] Exp 06/19/2025 Preston GLASER POINT OF CARE TEST ORDERABLES F inal Result documented in this encounter Visit Diagnoses Diagnosis Other headache syndrome- Primary Palpitations Type 2 diabetes mellitus with hyperglycemia, with long-term current use of insulin ([facility]) Mixed hyperlipidemia Type 2 diabetes mellitus with hyperglycemia, without long-term current use of insulin ([facility]) documented in this encounter Discontinued Medications Medication Sig Discontinue Reason Start Date End Da te metFORMIN XR (GLUCOPHAGE XR) 500 mg 24 hr tabletIndications:Type 2 diabetes mellitus with hyperglycemia, without long-term current use of insulin ([facility]) Take 3 tablets nightly. E11.65 Reorder 05/05/2023 11/21/2023 documented as of this encounter Care Teams Certified Green Building Engineer Relationship Specialty Start Date End Date Presotn Moulton PA PCP - General Family Medicine 03/10/23 documented as of this encounter
--- OUTSIDE RECORDS SUMMARY | 2024-10-02 02:33 | XMS_ITS | Encounter Summary ---
Author Organization [facility] Address [address] [place] [address] Care Team Providers Care Incising Machine Operator Name Role Phone Unavailable Primary Care Provider Unavailabl e Reason for Visit * Reason Comments Pain Abdominal Encounter Details Date Type Department Care Team (Late st Contact Info) Description 09/28/2019 4:36 AM COORDINATE MEASURING MACHINE OPERATOR - 09/28/2019 9:45 AM COORDINATE MEASURING MACHINE OPERATOR Emergency ER at [address] [address] Rickie Youngblood MD [address] [place] [id number] Abdominal pain, generalized; Elevated LFTs; Colitis Discharge Disposition: Home or Self Care Social History Tobacco Use Types Packs/Day Years Used Date Smoking Tobacco: Never Smokeless Tobacco: Never Alcohol Use Standard Drinks/Week Comments Not Currently 0 (1 standard drink = 0.6 oz pur e alcohol) Sex and Gender Information Value Date Recorded Sex Assigned at Male 10/10/2021 1:14 AM COORDINATE MEASURING MACHINE OPERATOR Gender Identity Male 10/10/2021 1:14 AM COORDINATE MEASURING MACHINE OPERATOR Sexual Orientation Not on file documented as of this encounter Last Filed Vital Signs Vital Sign Reading Time Taken Comments Blood Pressure 123/90 09/28/2019 9:25 AM COORDINATE MEASURING MACHINE OPERATOR Pulse 75 09/28/2019 9:25 AM COORDINATE MEASURING MACHINE OPERATOR Temperature 37.1 ??C (98.8 ??F) 09/28/2019 9:25 AM CS T Respiratory Rate 14 09/28/2019 9:25 AM COORDINATE MEASURING MACHINE OPERATOR Oxygen Saturation 98% 09/28/2019 9:25 AM COORDINATE MEASURING MACHINE OPERATOR Inhaled Oxygen Concentration - - Weight 77.1 kg (170 lb) 09/28/2019 3:48 AM COORDINATE MEASURING MACHINE OPERATOR Height 172.7 cm (5' 8 ) 09/28/2019 3:48 AM COORDINATE MEASURING MACHINE OPERATOR Body Mass Index 25.85 09/28/2019 3:48 AM COORDINATE MEASURING MACHINE OPERATOR documented in this encounter Discharge Instructions * Discharge Instructions* Marya Kearns, RN - 09/28/2019 9:11 AM COORDINATE MEASURING MACHINE OPERATOR Patient Education Patient Education Patient Education Hydrocodone/Acetaminophen (By mouth) Acetaminophen (g-hrua-g-MIN-oh-fen), Hydrocodone Bitartrate (lhd-yjix-ODP-done knd-GVC-urmiv) Treats pain. This medicine contains a narcotic pain reliever. Brand Name(s): Lorcet, Lorcet HD, Lorcet Plus, Lortab 10/325, Lortab 5/325, Lortab 7.5/325, Lortab Elixir, [place], Verdrocet, Vicodin, Vicodin ES, Vicodin HP, Xodol There may be other brand names for this medicine. When This Medicine Should Not Be Used: This medicine is not right for everyone. Do not use it if you had an allergic reaction to acetaminophen, hydrocodone, or other narcotic medicines, or stomach or bowel blockage (including paralytic ileus). How to Use This Medicine: Capsule, Liquid, Tablet ?? Your doctor will tell you how much medicine to use. Do not use more than directed. ?? An overdose can be dangerous. Follow directions carefully so you do not get too much medicine atone time. ?? Oral liquid: Measure the oral liquid medicine with a marked measuring spoon, oral syringe, or medicine cup. ?? Drink plenty of liquids to help avoid constipation. ?? This medicine should come with a Medication Guide. Ask your pharmacist for a copy if you do not have one. ?? Missed dose: Take a dose as soon as you remember. If it is almost time for your next dose, wait until then and take a regular dose. Do not take extra medicine to make up for a missed dose. ?? Store the medicine in a closed container at room temperature, away from heat, moisture, and direct light. Flush any unused [place]?? tablets down the toilet. Drugs and Foods to Avoid: Ask your doctor or pharmacist before using any other medicine, including glns-sbc-sxcfjfy medicines, vitamins, and herbal products. ?? Do not use this medicine if you are using or have used an MAO inhibitor within the past 14 days. ?? Some medicines can affect how hydrocodone/acetaminophen works. Tell your doctor if you are usingany of the following: ? Carbamazepine, erythromycin, ketoconazole, mirtazapine, phenytoin, rifampin, ritonavir, tramadol,trazodone ? Diuretic (water pill) ? Medicine to treat depression or mental health problems ? Medicine to treat migraine headaches ? Phenothiazine medicine ?? Tell your doctor if you use anything else that makes you sleepy. Some examples are allergy medicine, narcotic pain medicine, and alcohol. Tell your doctor if you are using buprenorphine, butorphanol, nalbuphine, pentazocine, or a muscle relaxer. ?? Do not drink alcohol while you are using this medicine. Acetaminophen can damage your liver, andyour risk is higher if you also drink alcohol. Warnings While Using This Medicine: ?? Tell your doctor if you are or , or if you have kidney disease, liver disease, lung or breathing problems, gallbladder or pancreas problems, an underactive thyroid, [place] disease, prostate problems, trouble urinating, stomach problems, or a history of head injury or braintumor, seizures, alcohol or drug addiction. ?? This medicine may cause the following problems: ? High risk of overdose, which can lead to ? Respiratory depression (serious breathing problem that can be life-threatening) ? Liver problems ? Serious skin reactions ? Serotonin syndrome (when used with certain medicines) ?? This medicine can be habit-forming. Do not use more than your prescribed dose. Call your doctor if you think your medicine is not working. ?? This medicine may make you dizzy or drowsy. Do not drive or doing anything else that could be dangerous until you know how this medicine affects you. ?? This medicine contains acetaminophen. Read the labels of all other medicines you are using to see if they also contain acetaminophen, or ask your doctor or pharmacist. Do not use more than 4 grams(4,000 milligrams) total of acetaminophen in one day. ?? Tell any doctor or dentist who treats you that you are using this medicine. This medicine may affect certain medical test results. ?? This medicine may cause constipation, especially with long-term use. Ask your doctor if you should use a laxative to prevent and treat constipation. ?? This medicine could cause infertility. Talk with your doctor before using this medicine if you plan to have children. ?? Keep all medicine out of the reach of children. Never share your medicine with anyone. Possible Side Effects While Using This Medicine: Call your doctor right away if you notice any of these side effects: ?? Allergic reaction: Itching or hives, swelling in your face or hands, swelling or tingling in your mouth or throat, chest tightness, trouble breathing ?? Anxiety, restlessness, fast heartbeat, fever, sweating, muscle spasms, twitching, diarrhea, seeing or hearing things that are not there ?? Blistering, peeling, red skin rash ?? Blue lips, fingernails, or skin ?? Dark urine or pale stools, loss of appetite, nausea or vomiting, stomach pain, yellow skin or eyes ?? Extreme weakness, shallow breathing, slow heartbeat, sweating, seizures, cold or clammy skin ?? Lightheadedness, dizziness, fainting If you notice these less serious side effects, talk with your doctor: ?? Constipation, nausea, vomiting ?? Tiredness or sleepiness If you notice other side effects that you think are caused by this medicine, tell your doctor. Call your doctor for medical advice about side effects. You may report side effects to FDA at 0-315-CPR-2590 ?? Copyright [employer] 2018 Information is for End User's use only and may not be sold, redistributed or otherwise used for commercial purposes. The above information is an restrooms or lounges maid only. It is not intended as medical advice for individual conditions or treatments. Talk to your doctor, nurse or pharmacist before following any medical regimen to see if it is safe and effective for you. Metronidazole (By mouth) Metronidazole (ntw-tmy-QDL-da-zole) Treats bacterial infections. Brand Name(s): Flagyl, Flagyl 375 There may be other brand names for this medicine. When This Medicine Should Not Be Used: This medicine is not right for everyone. Do not use if you had an allergic reaction to metronidazole or similar medicines. Do not use this medicine to treat trichomoniasis if you are in the first 3 months of . How to Use This Medicine: Capsule, Tablet, Long Acting Tablet ?? Take your medicine as directed. Your dose may need to be changed several times to find what works best for you. ?? Capsule: Take with food or milk to avoid upset stomach. ?? Extended-release tablet: Take it on an empty stomach, 1 hour before or 2 hours after a meal. ?? Swallow the extended-release tablet whole. Do not crush, break, or chew it. ?? Take all of the medicine in your prescription to clear up your infection, even if you feel better after the first few doses. ?? Missed dose: Take a dose as soon as you remember. If it is almost time for your next dose, wait until then and take a regular dose. Do not take extra medicine to make up for a missed dose. ?? Store the medicine in a closed container at room temperature, away from heat, moisture, and direct light. Drugs and Foods to Avoid: Ask your doctor or pharmacist before using any other medicine, including vspq-clc-obvczyq medicines, vitamins, and herbal products. ?? Do not use this medicine if you have taken disulfiram within the last 2 weeks. Do not drink alcohol or use medicine that contains alcohol or propylene glycol while using this medicine and for at least 3 days after treatment. ?? Some foods and medicines can affect how metronidazole works. Tell your doctor if you are using busulfan, cimetidine, lithium, phenobarbital, phenytoin, or a blood thinner (including warfarin). Warnings While Using This Medicine: ?? Tell your doctor if you are or , or if you have kidney disease, liver disease, a yeast infection (including oral thrush), Cockayne syndrome (genetic disorder), or a history of blood or bone marrow problems or seizures. ?? This medicine may cause the following problems: ? Brain or nervous system problems, including peripheral neuropathy, encephalopathy, seizures, meningitis, or vision problems ? Liver problems, which may be life-threatening ? Serious skin reactions ?? Trichomoniasis treatment: Your doctor may want to also treat your sexual partner, even if he or she has no symptoms. Also, you may want to use a condom during sexual intercourse. These measures will help keep you from getting the infection back again from your partner. If you have any questions,ask your doctor. ?? Call your doctor if your symptoms do not improve or if they get worse. ?? Your doctor will do lab tests at regular visits to check on the effects of this medicine. Keep all appointments. ?? Tell any doctor or dentist who treats you that you are using this medicine. This medicine may affect certain medical test results. ?? Keep all medicine out of the reach of children. Never share your medicine with anyone. Possible Side Effects While Using This Medicine: Call your doctor right away if you notice any of these side effects: ?? Allergic reaction: Itching or hives, swelling in your face or hands, swelling or tingling in your mouth or throat, chest tightness, trouble breathing ?? Blistering, peeling, red skin rash ?? Confusion, drowsiness, headache, stiff neck or back ?? Dark urine or pale stools, nausea, vomiting, loss of appetite, stomach pain, yellow skin or eyes ?? Dizziness, problems with muscle control, clumsiness, shakiness, trouble talking ?? Fever, chills, cough, sore throat, body aches ?? Numbness, tingling, or burning pain in your hands, arms, legs, or feet ?? Seizures If you notice these less serious side effects, talk with your doctor: ?? Unusual or unpleasant taste in your mouth If you notice other side effects that you think are caused by this medicine, tell your doctor. Call your doctor for medical advice about side effects. You may report side effects to FDA at 0-800-HAK-9870 ?? Copyright [employer] 2019 Information is for End User's use only and may not be sold, redistributed or otherwise used for commercial purposes. The above information is an restrooms or lounges maid only. It is not intended as medical advice for individual conditions or treatments. Talk to your doctor, nurse or pharmacist before following any medical regimen to see if it is safe and effective for you. Ciprofloxacin (By mouth) Ciprofloxacin (iff-uhe-ZGUM-a-sin) Treats infections and plague (including pneumonic and septicemic plague). It is also given to people who have been exposed to anthrax. This medicine is a quinolone antibiotic. Brand Name(s): Cipro There may be other brand names for this medicine. When This Medicine Should Not Be Used: This medicine is not right for everyone. Do not use it if you had an allergic reaction to ciprofloxacin or to similar medicines. How to Use This Medicine: Liquid, Tablet, Long Acting Tablet ?? Your doctor will tell you how much medicine to use. Do not use more than directed. Take this medicine at the same time each day. ?? You may take this medicine with or without food. Do not take this medicine with only a source ofcalcium, including milk, yogurt, or juice that contains added calcium. You may have foods or drinksthat contain calcium as part of a larger meal. ?? Swallow the extended-release tablet whole. Do not crush, break, or chew it. ?? Oral liquid: Shake for at least 15 seconds just before each use. The liquid has small beads floating in it. Do not chew the beads when you drink the liquid. Measure the oral liquid medicine with amarked measuring spoon, oral syringe, or medicine cup. ?? Tablet: Swallow whole. Do not break, crush, or chew it. ?? Drink extra fluids so you will urinate more often and help prevent kidney problems. ?? Take all of the medicine in your prescription to clear up your infection, even if you feel better after the first few doses. ?? This medicine should come with a Medication Guide. Ask your pharmacist for a copy if you do not have one. ?? Missed dose: Take a dose as soon as you remember. If it is almost time for your next dose, wait until then and take a regular dose. Do not take extra medicine to make up for a missed dose. ?? Store the medicine in a closed container at room temperature, away from heat, moisture, and direct light. Throw away any leftover liquid medicine after 14 days. Drugs and Foods to Avoid: Ask your doctor or pharmacist before using any other medicine, including snqf-bno-rerfyzn medicines, vitamins, and herbal products. ?? Do not use this medicine together with tizanidine. ?? Some foods and medicines can affect how ciprofloxacin works. Tell your doctor if you are using any of the following: ? Clozapine, cyclosporine, duloxetine, lidocaine, methotrexate, olanzapine, pentoxifylline, phenytoin, probenecid, ropinirole, sildenafil, theophylline, zolpidem ? Antibiotic (including azithromycin, clarithromycin, erythromycin) ? Blood thinner (including warfarin) ? Insulin or oral diabetes medicine (including glimepiride, glyburide) ? Medicine for depression or mental illness ? Medicine for heart rhythm problems (including amiodarone, procainamide, quinidine, sotalol) ? NSAID pain medicine (including aspirin, celecoxib, diclofenac, ibuprofen, naproxen) ? Steroid medicine (including hydrocortisone, methylprednisolone, prednisone) ?? Take ciprofloxacin at least 2 hours before or 6 hours after you take didanosine buffered tabletsfor oral suspension or the pediatric powder for oral suspension, sucralfate, or antacids, multivitamins, or other products containing aluminum, magnesium, lanthanum, sevelamer, iron, or zinc. ?? This medicine slows the digestion of caffeine, so it might affect you for longer than normal. Warnings While Using This Medicine: ?? Tell your doctor if you are or , or if you have kidney disease, liver disease, diabetes, heart disease, myasthenia gravis, aortic aneurysm (bulge in the wall of the largest artery), or a history of heart rhythm problems (including prolonged QT interval), nerve problems, seizures, brain problems, stroke, or mental illness. Tell your doctor if you have ever had tendon or joint problems, including rheumatoid arthritis, or if you have received a transplant. ?? This medicine may cause the following problems: ? Tendinitis and tendon rupture (which may happen after treatment ends) ? Nerve damage in the arms or legs, which may become permanent ? Changes in mood or behavior, seizures, or increased pressure in the head ? Serious skin reactions ? Kidney problems ? Liver problems ? Increased risk of aortic aneurysm ? Heart rhythm changes ? Changes in blood sugar levels ?? This medicine may make you dizzy, drowsy, or lightheaded. Do not drive or do anything else that could be dangerous until you know how this medicine affects you. ?? This medicine may make you bleed, bruise, or get infections more easily. Take precautions to prevent illness and injury. Wash your hands often. ?? This medicine can cause diarrhea. Call your doctor if the diarrhea becomes severe, does not stop, or is bloody. Do not take any medicine to stop diarrhea until you have talked to your doctor. Diarrhea can occur 2 months or more after you stop taking this medicine. ?? Tell any doctor or dentist who treats you that you are using this medicine. This medicine may affect certain medical test results. ?? This medicine may make your skin more sensitive to sunlight. Wear sunscreen. Do not use sunlampsor tanning beds. ?? Call your doctor if your symptoms do not improve or if they get worse. ?? Your doctor will do lab tests at regular visits to check on the effects of this medicine. Keep all appointments. ?? Keep all medicine out of the reach of children. Never share your medicine with anyone. Possible Side Effects While Using This Medicine: Call your doctor right away if you notice any of these side effects: ?? Allergic reaction: Itching or hives, swelling in your face or hands, swelling or tingling in your mouth or throat, chest tightness, trouble breathing ?? Blistering, peeling, red skin rash ?? Change in how much or how often you urinate, cloudy or bloody urine ?? Dark urine, pale stools, nausea, vomiting, loss of appetite, stomach pain, yellow skin or eyes ?? Diarrhea which may contain blood ?? Fainting, dizziness, or lightheadedness ?? Fast, slow, or uneven heartbeat ?? Numbness, tingling, weakness, or burning pain in your hands, arms, legs, or feet ?? Pain, stiffness, swelling, or bruises around your ankle, leg, shoulder, or other joints ?? Seizures, severe headache, unusual thoughts or behaviors, trouble sleeping, feeling anxious, confused, or depressed, seeing, hearing, or feeling things that are not there ?? Sensitivity of the skin to sunlight, redness or other discoloration of the skin, severe sunburn ?? Sudden chest, stomach, or back pain, trouble breathing, cough ?? Unusual bleeding, bruising, or weakness If you notice other side effects that you think are caused by this medicine, tell your doctor. Call your doctor for medical advice about side effects. You may report side effects to FDA at 1-990-IPC-6839 ?? Copyright [employer] 2018 Information is for End User's use only and may not be sold, redistributed or otherwise used for commercial purposes. The above information is an restrooms or lounges maid only. It is not intended as medical advice for individual conditions or treatments. Talk to your doctor, nurse or pharmacist before following any medical regimen to see if it is safe and effective for you. DINATE MEASURING MACHINE OPERATOR * Attachments The following attachments cannot be sent through Care Everywhere. * Colitis (AfterCare(R) Instructions(ER/ED)) (Bengali) * Acute Abdominal Pain (AfterCare(R) Instructions(ER/ED)) (Bengali) documented in this encounter Medications at Time of Discharge Medication Sig Dispensed Refills Start Date End Date ciprofloxacin (CIPRO) 500 MG tablet Take 1 tablet by mouth 2 times daily for 10 days 20 tablet 09/28/2019 10/08/2019 HYDROcodone-acetaminophe n (NORCO) 5-325 MG tablet Take 1 tablet by mouth every 6 hours as needed for Pain 16 tablet 09/28/2019 03/05/2021 metroNIDAZOLE (FLAGYL) 500 MG tablet Take 1 tablet by mouth every 8 hours for 10 days 30 tablet 09/28/2019 10/08/2019 ondansetron (ZOFRAN) 4 MG tablet Take 1 tablet by mouth every 6 hours as needed for Nausea/Vomiting 16 tablet 09/28/2019 03/05/2021 documented as of this encounter ED Notes * Marya Kearns RN - 09/28/2019 10:28 AM CST Pt. States feeling much better. Voices understanding of instructions. Discharged ambulatory with Spouse. DINATE MEASURING MACHINE OPERATOR * Ai Wick RN - 09/28/2019 6:47 AM CST Pt states his belly pain and nausea are resolved. Pt now just c/o back and b/l flank pain. DINATE MEASURING MACHINE OPERATOR * Ai Wick RN - 09/28/2019 5:04 AM CST Pt states he thinks he got food poisoning from eating at [employer]. States he started having severe epigastric pain and nausea after eating out. His significant other also ate there but did not become sick. Pt has had 2 emesis and is stating epigastric pain is radiating through to his back. 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 Pt will voice things like bevel up and apply the hub during IV stick and subsequent blood draw. DINATE MEASURING MACHINE OPERATOR * Rickie Youngblood MD - 09/28/2019 4:49 AM CST Chadwick Holcomb [id number] [facility] EMERGENCY DEPARTMENT History Chief Complaint Patient presents with ??? Pain Abdominal Chadwick Holcomb is a 39 year old male with abd pain Pt states pain started 1AM, constant, pt feels pain in mid abd and radaited to back No trauma Pt is unsure if perhaps he ate some bad food. He did have chicken at [employer] and thinks it tastedbad No associated fever Some nausea x1 no diarrhea Nothing has made his symptoms better Pain Abdominal Pain location: Epigastric Pain quality: aching and bloating Pain radiates to: Back Pain severity: Severe Onset quality: Sudden Timing: Constant Progression: Unchanged Chronicity: New Context: awakening from sleep Relieved by: Nothing Worsened by: Palpation Ineffective treatments: None tried Associated symptoms: no chest pain, no cough, no dysuria, no fever, no shortness of breath and no sore throat No past medical history on file. No past surgical history on file. No family history on file. Social History Socioeconomic History ??? Marital status: Single Spouse name: Not on file ??? Number of children: Not on file ??? Years of education: Not on file ??? Highest education level: Not on file Occupational History ??? Not on file Social Needs ??? Financial resource strain: Not on file ??? Food insecurity: Worry: Not on file Inability: Not on file ??? Transportation needs: Medical: Not on file Non-medical: Not on file Tobacco Use ??? Smoking status: Never Smoker ??? Smokeless tobacco: Never Used Substance and Sexual Activity ??? Alcohol use: Not Currently ??? Drug use: Not Currently ??? Sexual activity: Not on file Lifestyle ??? Physical activity: Days per week: Not on file Minutes per session: Not on file ??? Stress: Not on file Relationships ??? Social connections: Talks on phone: Not on file Gets together: Not on file Attends jehovah's witness service: Not on file Active member of club or organization: Not on file Attends meetings of clubs or organizations: Not on file Relationship status: Not on file ??? Intimate partner violence: Fear of current or ex partner: Not on file Emotionally abused: Not on file Physically abused: Not on file Forced sexual activity: Not on file Other Topics Concern ??? Not on file Social History Narrative ??? Not on file Review of Systems Review of Systems Constitutional: Negative for fever. HENT: Negative for sore throat. Eyes: Negative for discharge and redness. Respiratory: Negative for cough, shortness of breath and stridor. Cardiovascular: Negative for chest pain. Gastrointestinal: Positive for abdominal pain. Genitourinary: Negative for dysuria, frequency and urgency. Musculoskeletal: Positive for back pain. Skin: Negative for rash. Neurological: Negative for seizures. Psychiatric/Behavioral: Negative for depression and suicidal ideas. All other systems reviewed and are negative. Physical Exam BP 148/88 Pulse 94 Temp 97.8 ??F (36.6 ??C) (Oral) Resp 20 Ht 1.727 m (5' 8 ) Wt 77.1 kg (170 lb) SpO2 94% BMI 25.85 kg/m?? Physical Exam Constitutional: He is oriented to person, place, and time. He appears well- developed and well-nourished. He is cooperative. Non-toxic appearance. No distress. HENT: Head: Normocephalic and atraumatic. Head is without abrasion and without contusion. Right Ear: External ear normal. Left Ear: External ear normal. Nose: Nose normal. No epistaxis. Mouth/Throat: No oropharyngeal exudate, posterior oropharyngeal edema or posterior oropharyngeal erythema. Eyes: Pupils are equal, round, and reactive to light. Conjunctivae and EOM are normal. Right eye exhibits no discharge. Left eye exhibits no discharge. Right conjunctiva is not injected. Right conjunctiva has no hemorrhage. Left conjunctiva is not injected. Left conjunctiva has no hemorrhage. No scleral icterus. Neck: Normal range of motion and full passive range of motion without pain. Neck supple. No tracheal tenderness and no spinous process tenderness present. No neck rigidity. No erythema and normal range of motion present. No thyromegaly present. Cardiovascular: Normal rate and regular rhythm. Pulmonary/Chest: Effort normal and breath sounds normal. No accessory muscle usage or stridor. No bradypnea. No respiratory distress. He has no decreased breath sounds. He has no wheezes. He has no rhonchi. He has no rales. Abdominal: Soft. Normal appearance and bowel sounds are normal. He exhibits no distension and no mass. There is generalized tenderness and tenderness in the epigastric area. There is no rigidity, no rebound, no guarding and no CVA tenderness. Musculoskeletal: Normal range of motion. He exhibits no tenderness. No obv injuries edema or swelling Neurological: He is alert and oriented to person, place, and time. He is not disoriented. No cranial nerve deficit or sensory deficit. He displays no seizure activity. GCS eye subscore is 4. GCS verbal subscore is 5. GCS motor subscore is 6. Skin: Skin is warm. No rash noted. He is not diaphoretic. No erythema. Psychiatric: He has a normal mood and affect. His speech is normal and behavior is normal. Judgmentand thought content normal. He is not actively hallucinating and not combative. Cognition and memory are normal. He does not express inappropriate judgment. He expresses no suicidal ideation. He expresses no suicidal plans. Nursing note and vitals reviewed. Medications Current Outpatient Medications Medication Sig Dispense Refill ??? ciprofloxacin (CIPRO) 500 MG tablet Take 1 tablet by mouth 2 times daily for 10 days 20 tablet 0 ??? HYDROcodone-acetaminophen (NORCO) 5-325 MG tablet Take 1 tablet by mouth every 6 hours as needed for Pain 16 tablet 0 ??? metroNIDAZOLE (FLAGYL) 500 MG tablet Take 1 tablet by mouth every 8 hours for 10 days 30 tablet0 ??? ondansetron (ZOFRAN) 4 MG tablet Take 1 tablet by mouth every 6 hours as needed for Nausea/Vomiting 16 tablet 0 Procedures Procedures Lab Interpretation Oxygen Saturation Interpretation The oxygen saturation level is: 94%. The patient was on Room Air for the saturation measurement. Measurement frequency: Spot Check. Oxygen saturation interpretation is Normal. Intervention(s) used: None. Hospital Encounter on 09/28/19 CBC W AUTO DIFFERENTIAL Result Value Ref Range WBC 14.9 (H) 4.0 - 10.0 x10E9/L RBC 5.07 4.40 - 6.10 x10E12/L Hemoglobin 15.8 13.7 - 17.5 gm/dL Hematocrit 43.9 40.1 - 51.0 % MCV 86.6 78.0 - 100.0 fl MCH 31.2 25.6 - 34.0 pg MCHC 36.0 32.3 - 36.5 gm/dL RDW 12.6 11.6 - 14.4 % MPV 9.7 9.4 - 12.4 fl Platelet Count 281 163 - 369 x10E9/L Neutrophils % 73.3 40.0 - 75.0 % Lymphocytes % 18.1 (L) 19.3 - 53.1 % Monocytes % 6.9 4.7 - 12.5 % Eosinophils % 1.2 0.7 - 7.0 % Basophils % 0.1 0.1 - 1.2 % Immature Granulocytes 0.4 0 - 0.5 % Neutrophil Absolute 10.91 (H) 1.56 - 6.13 x10E9/L Lymphocytes Absolute 2.70 1.18 - 3.74 x10E9/L Monocytes Absolute 1.03 (H) 0.24 - 0.86 x10E9/L Eosinophils Absolute 0.18 0.04 - 0.54 x10E9/L Basophils Absolute 0.02 0.01 - 0.08 x10E9/L Immature Granulocytes Absolute 0.06 (H) 0 - 0.03 x10E9/L nRBC Auto 0 <=0 /100 WBC nRBC Absolute 0.00 <=0 x10E9/L COMPREHENSIVE METABOLIC PANEL Result Value Ref Range Glucose 153 (H) 70 - 125 mg/dL Sodium 140 136 - 145 mmol/L Potassium 3.7 3.4 - 4.5 mmol/L Chloride 101 98 - 107 mmol/L CO2 24 22 - 29 mmol/L Calcium 9.9 8.4 - 10.2 mg/dL Anion Gap 19 10 - 20 mmol/L BUN 15.0 8.4 - 25.7 mg/dL Creatinine 1.17 0.72 - 1.25 mg/dL eGFR by MDRD >60 >60 mL/min/1.73m2 eGFR by MDRD >60 >60 mL/min/1.73m2 Alkaline Phosphatase 81 40 - 150 U/L ALT 97 (H) 5 - 55 U/L AST 40 (H) 5 - 34 U/L Protein Total 8.5 (H) 6.4 - 8.3 gm/dL Albumin 4.4 3.5 - 5.0 gm/dL Globulin Total 4.1 (H) 2.6 - 4.0 gm/dL Albumin/Globulin Ratio 1.1 0.9 - 1.6 Bilirubin Total 0.6 0.2 - 1.2 mg/dL URINALYSIS REFLEX MICROSCOPIC REFLEX CULTURE Result Value Ref Range Color UA Straw Clarity UA Clear Clear Glucose UA Negative Negative Bilirubin UA Negative Negative Ketone UA Negative Negative Specific Spangle UA >=1.030 1.005 - 1.030 Blood UA Trace (Abnormal) Negative pH UA 6.0 5.0 - 8.0 pH Protein UA Negative Negative Urobilinogen UA Negative Negative mg/dL Nitrite UA Negative Negative Leukocyte UA Negative Negative Urine Microscopy Urine microscopy to follow Reflex Status Culture not indicated LIPASE BLOOD Result Value Ref Range Lipase 27 8 - 78 U/L AMYLASE BLOOD Result Value Ref Range Amylase 82 25 - 125 U/L URINE MICROSCOPIC ONLY REFLEX TO CULTURE Result Value Ref Range Reflex Status Culture not indicated RBC UA 3-5 None Seen, 0-2, 3-5 # /hpf WBC UA 0-5 None Seen, 0-5 # /hpf Bacteria UA None Seen None Seen Squamous Epithelial Cells None Seen None Seen, 0-2, 3-5 /hpf Mucus UA 1+ /LPF CT ABDOMEN AND PELVIS W IV CONTRAST [id number] Final Result PROCEDURE: CT ABDOMEN PELVIS W CONTRAST 09/28/2019 [...] free fluid, perforation. No other significant findings. Progress Notes ED Course Clinical Impressions as of Sep 28 747 Abdominal pain, generalized Elevated LFTs Colitis Medical Decision Making I have reviewed the: Nursing Notes, Vitals. I have interpreted the following results: Labs, CT Scans and Oxygen Saturation. DDX - gastritis vs biliary colic vs colitis vs pancreatitis Will do a work up WBC slightly elevated at 14.9 GLU 153 Na 140 K+ 3.7 CO2 24 BUN 15 Cr 1.17 ALT 97 AST 40 so perhaps there is a component of biliary colic Amylase 82 LIpase 27 Pos+ for infiltrative changes of the transverse colong No intrahepatic ductal dilation So not sure about the LFT elevation pt does consume some ETOH 0715 - pt states pain is much better CT - positive for the colitis We talked about treatment Pt states he is ok with the IV doses and then wants to go home Will do cipro flagyl levsin and zofran I did reach out to Dr Oliveira He will follow up the pt, call after 8AM for an appointment on Tuesday Also he suggest some pain medication Orders Placed This Encounter ??? CT ABDOMEN AND PELVIS W IV CONTRAST [id number] ??? CBC W AUTO DIFFERENTIAL ??? COMPREHENSIVE METABOLIC PANEL ??? URINALYSIS REFLEX MICROSCOPIC REFLEX CULTURE ??? LIPASE BLOOD ??? AMYLASE BLOOD ??? URINE MICROSCOPIC ONLY REFLEX TO CULTURE ??? AND Linked Order Group ??? 0.9% NaCl injection 3 mL ??? 0.9% NaCl injection 1-10 mL ??? 0.9% NaCl IV Bolus ??? ondansetron (ZOFRAN) injection 4 mg ??? hyoscyamine tablet 0.125 mg ??? ketorolac (TORADOL) injection 30 mg ??? iopamidol (ISOVUE 300) 61 % contrast ??? metroNIDAZOLE (FLAGYL) 500 mg in 100 mL IVPB ??? ciprofloxacin (CIPRO) 400 mg in 200 mL IVPB ??? ciprofloxacin (CIPRO) 500 MG tablet ??? metroNIDAZOLE (FLAGYL) 500 MG tablet ??? ondansetron (ZOFRAN) 4 MG tablet ??? HYDROcodone-acetaminophen (NORCO) 5-325 MG tablet Follow-up Information Follow-up With Details Why Contact Ramsey Marcial MD call today after 8AM to set something up for Tuesday [address] [place] [address] [facility] [address] [facility] [address] [facility] [id number] User Date/Time Rickie Youngblood MD TueSep 28, 2019 7:48 AM DINATE MEASURING MACHINE OPERATOR * Leela Wharton RN - 09/28/2019 3:50 AM CST Patient arrives to ER with c/o abdominal pain that woke him out of his sleep around 0100. Patient states he ate chicken at [employer] this evening and the last piece tasted funny, concerned that he has simonsiella. States it feels like someone punched me in my stomach . Patient reports emesis x1 while in waiting room. DINATE MEASURING MACHINE OPERATOR documented in this encounter Plan of Treatment Not on file documented as of this encounter Procedures Procedure Name Priority Date/Time Associated Diagnosis Comments CARDIAC RHYTHM STRIP ORDER 10/01/2019 11:28 AM COORDINATE MEASURING MACHINE OPERATOR CT ABDOMEN PELVIS W CONTRAST STAT 09/28/2019 6:25 AM COORDINATE MEASURING MACHINE OPERATOR Abdominal pain, generalized CBC W AUTO DIFFERENTIAL STAT 09/28/2019 4:38 AM COORDINATE MEASURING MACHINE OPERATOR COMPREHENSIVE METABOLIC PANEL STAT 09/28/2019 4:38 AM COORDINATE MEASURING MACHINE OPERATOR LIPASE BLOOD STAT 09/28/2019 4:38 AM COORDINATE MEASURING MACHINE OPERATOR AMYLASE BLOOD STAT 09/28/2019 4:38 AM COORDINATE MEASURING MACHINE OPERATOR URINE MICROSCOPIC ONLY REFLEX TO CULTURE Routine 09/28/2019 4:12 AM COORDINATE MEASURING MACHINE OPERATOR URINALYSIS REFLEX MICROSCOPIC REFLEX CULTURE STAT 09/28/2019 4:12 AM COORDINATE MEASURING MACHINE OPERATOR documented in this encounter Results * CARDIAC RHYTHM STRIP ORDER (10/01/2019 11:28 AM COORDINATE MEASURING MACHINE OPERATOR) Narrative 10/01/2019 11:28 AM COORDINATE MEASURING MACHINE OPERATOR Ordered by an unspecified provider. Scanned Document CARDIAC SERVICES ORD ERABLES * CT ABDOMEN AND PELVIS W IV CONTRAST [id number] (09/28/2019 6:25 AM COORDINATE MEASURING MACHINE OPERATOR) Anatomical Region Laterality Modality Abdomen, Pelvis Computed Tomogra phy 09/28/2019 6:37 AM COORDINATE MEASURING MACHINE OPERATOR Impressions 09/28/2019 6:41 AM COORDINATE MEASURING MACHINE OPERATOR Presumed colitis as described above. Correlate clinically. No focal fluid collection, free fluid, perforation. No other significant findings. Narrative 09/28/2019 6:41 AM COORDINATE MEASURING MACHINE OPERATOR PROCEDURE: CT ABDOMEN PELVIS W CONTRAST ??09/28/2019 [...] findings. Rickie Youngblood MD CT ORDERABLES * AMYLASE BLOOD (09/28/2019 4:38 AM COORDINATE MEASURING MACHINE OPERATOR) Amylase 82 25 - 125 U/L 09/28/2019 5:07 AM [facility] Blood BLOOD SPECIMEN / Unknown Lab Venipuncture / Unknown 09/28/2019 4:38 AM COORDINATE MEASURING MACHINE OPERATOR 09/28/2019 4:45 AM COORDINATE MEASURING MACHINE OPERATOR Narrative Authorizing Provider Result Aubree Youngblood MD LAB - CHEMISTRY YOMI MAYA Performing Organization Address [facility] Co de Phone Number [facility] [address] * LIPASE BLOOD (09/28/2019 4:38 AM COORDINATE MEASURING MACHINE OPERATOR) Lipase 27 8 - 78 U/L 09/28/2019 5:22 AM [facility] Blood BLOOD SPECIMEN / Unknown Lab Venipuncture / Unknown 09/28/2019 4:38 AM COORDINATE MEASURING MACHINE OPERATOR 09/28/2019 4:45 AM COORDINATE MEASURING MACHINE OPERATOR Rickie Youngblood MD LAB - CHEMISTRY YOMI MAYA Performing Organization Address [facility] de Phone Number [facility] [address] * (ABNORMAL) COMPREHENSIVE METABOLIC PANEL (09/28/2019 4:38 AM COORDINATE MEASURING MACHINE OPERATOR) [facility] Glucose 153(H) 70 - 125 mg/dL 09/28/2019 5:07 AM [facility] Sodium 140 136 - 145 mmol/L 09/28/2019 5:07 AM [facility] Potassium 3.7 3.4 - 4.5 mmol/L 09/28/2019 5:07 AM [facility] Chloride 101 98 - 107 mmol/L 09/28/2019 5:07 AM [facility] CO2 24 22 - 29 mmol/L 09/28/2019 5:07 AM [facility] Calcium 9.9 8.4 - 10.2 mg/dL 09/28/2019 5:07 AM [facility] Anion Gap 19 10 - 20 mmol/L 09/28/2019 5:07 AM [facility] BUN 15.0 8.4 - 25.7 mg/dL 09/28/2019 5:07 AM [facility] Creatinine 1.17 0.72 - 1.25 mg/dL 09/28/2019 5:07 AM [facility] eGFR by MDRD >60 >60 mL/min/1.7 3m2 09/28/2019 5:07 AM [facility] eGFR by MDRD >60 >60 mL/min/1.7 3m2 09/28/2019 5:07 AM [facility] Alkaline Phosphatase 81 40 - 150 U/L 09/28/2019 5:07 AM [facility] ALT 97(H) 5 - 55 U/L 09/28/2019 5:07 AM [facility] AST 40(H) 5 - 34 U/L 09/28/2019 5:07 AM [facility] Protein Total 8.5(H) 6.4 - 8.3 gm/dL 09/28/2019 5:07 AM [facility] Albumin 4.4 3.5 - 5.0 gm/dL 09/28/2019 5:07 AM [facility] Globulin Total 4.1(H) 2.6 - 4.0 gm/dL 09/28/2019 5:07 AM [facility] Albumin/Globulin Ratio 1.1 0.9 - 1.6 09/28/2019 5:07 AM [facility] Bilirubin Total 0.6 0.2 - 1.2 mg/dL 09/28/2019 5:07 AM [facility] Blood BLOOD SPECIMEN / Unknown Lab Venipuncture / Unknown 09/28/2019 4:38 AM COORDINATE MEASURING MACHINE OPERATOR 09/28/2019 4:45 AM [facility] Rickie Youngblood MD LAB - CHEMISTRY YOMI MAYA [facility] Organization Address [facility] de Phone Number [facility] [address] * (ABNORMAL) CBC W AUTO DIFFERENTIAL (09/28/2019 4:38 AM [facility]) WBC 14.9(H) 4.0 - 10.0 x10E9/L 09/28/2019 4:47 AM [facility] RBC 5.07 4.40 - 6.10 x10E12/L 09/28/2019 4:47 AM [facility] Hemoglobin 15.8 13.7 - 17.5 gm/dL 09/28/2019 4:47 AM [facility] Hematocrit 43.9 40.1 - 51.0 % 09/28/2019 4:47 AM [facility] MCV 86.6 78.0 - 100.0 fl 09/28/2019 4:47 AM [facility] MCH 31.2 25.6 - 34.0 pg 09/28/2019 4:47 AM [facility] MCHC 36.0 32.3 - 36.5 gm/dL 09/28/2019 4:47 AM [facility] RDW 12.6 11.6 - 14.4 % 09/28/2019 4:47 AM [facility] MPV 9.7 9.4 - 12.4 fl 09/28/2019 4:47 AM [facility] Platelet Count 281 163 - 369 x10E9/L 09/28/2019 4:47 AM [facility] Neutrophils % 73.3 40.0 - 75.0 % 09/28/2019 4:47 AM [facility] Lymphocytes % 18.1(L) 19.3 - 53.1 % 09/28/2019 4:47 AM [facility] Monocytes % 6.9 4.7 - 12.5 % 09/28/2019 4:47 AM [facility] Eosinophils % 1.2 0.7 - 7.0 % 09/28/2019 4:47 AM [facility] Basophils % 0.1 0.1 - 1.2 % 09/28/2019 4:47 AM [facility] Immature Granulocytes 0.4 0 - 0.5 % 09/28/2019 4:47 AM [facility] Neutrophil Absolute 10.91(H) 1.56 - 6.13 x10E9/L 09/28/2019 4:47 AM [facility] Lymphocytes Absolute 2.70 1.18 - 3.74 x10E9/L 09/28/2019 4:47 AM [facility] Monocytes Absolute 1.03(H) 0.24 - 0.86 x10E9/L 09/28/2019 4:47 AM [facility] Eosinophils Absolute 0.18 0.04 - 0.54 x10E9/L 09/28/2019 4:47 AM [facility] Basophils Absolute 0.02 0.01 - 0.08 x10E9/L 09/28/2019 4:47 AM [facility] Immature Granulocytes Absolute 0.06(H) 0 - 0.03 x10E9/L 09/28/2019 4:47 AM [facility] nRBC Auto 0 <=0 /100 WBC 09/28/2019 4:47 AM [facility] nRBC Absolute 0.00 <=0 x10E9/L 09/28/2019 4:47 AM [facility] Blood BLOOD SPECIMEN / Unknown Lab Venipuncture / Unknown 09/28/2019 4:38 AM COORDINATE MEASURING MACHINE OPERATOR 09/28/2019 4:45 AM [facility] Rickie Youngblood MD LAB - HEMATOLOGY ORD ERABLES Performing Organization Address City/[facility]/ZIP Co de Phone Number [facility] [address] * URINE MICROSCOPIC ONLY REFLEX TO CULTURE (09/28/2019 4:12 AM [facility]) Reflex Status Culture not indicated 09/28/2019 4:54 AM [facility] RBC UA 3-5 None Seen, 0-2, 3-5 # /hpf 09/28/2019 4:54 AM [facility] WBC UA 0-5 None Seen, 0-5 # /hpf 09/28/2019 4:54 AM [facility] Bacteria UA None Seen None Seen 09/28/2019 4:54 AM [facility] Squamous Epithelial Cells None Seen None Seen, 0-2, 3-5 /hpf 09/28/2019 4:54 AM [facility] Mucus UA 1+ /LPF 09/28/2019 4:54 AM [facility] Urine URINE SPECIMEN OBTAINED BY CLEAN CATCH PROCEDURE / Unknown Collection / Unknown 09/28/2019 4:12 AM COORDINATE MEASURING MACHINE OPERATOR 09/28/2019 4:14 AM COORDINATE MEASURING MACHINE OPERATOR Narrative [facility] - 09/28/2019 4:54 AM COORDINATE MEASURING MACHINE OPERATOR Rickie Youngblood MD LAB - URINALYSIS ORD ERABLES Performing Organization Address City/[facility]/ZIP Co de Phone Number [facility] [address] * (ABNORMAL) URINALYSIS REFLEX MICROSCOPIC REFLEX CULTURE (09/28/2019 4:12 AM [facility]) Color UA Straw 09/28/2019 4:27 AM [facility] Clarity UA Clear Clear 09/28/2019 4:27 AM [facility] Glucose UA Negative Negative 09/28/2019 4:27 AM [facility] Bilirubin UA Negative Negative 09/28/2019 4:27 AM [facility] Ketone UA Negative Negative 09/28/2019 4:27 AM [facility] Specific Spangle UA >=1.030 1.005 - 1.030 09/28/2019 4:27 AM [facility] Blood UA Trace(A) Negative 09/28/2019 4:27 AM [facility] pH UA 6.0 5.0 - 8.0 pH 09/28/2019 4:27 AM [facility] Protein UA Negative Negative 09/28/2019 4:27 AM [facility] Urobilinogen UA Negative Negative mg/dL 09/28/2019 4:27 AM [facility] Nitrite UA Negative Negative 09/28/2019 4:27 AM [facility] Leukocyte UA Negative Negative 09/28/2019 4:27 AM [facility] Urine Microscopy Urine microscopy to follow 09/28/2019 4:27 AM [facility] Reflex Status Culture not indicated 09/28/2019 4:27 AM [facility] Urine URINE SPECIMEN OBTAINED BY CLEAN CATCH PROCEDURE / Unknown Collection / Unknown 09/28/2019 4:12 AM COORDINATE MEASURING MACHINE OPERATOR 09/28/2019 4:14 AM COORDINATE MEASURING MACHINE OPERATOR Narrative [facility] - 09/28/2019 4:27 AM COORDINATE MEASURING MACHINE OPERATOR Rickie Youngblood MD LAB - URINALYSIS ORD ERABLES Performing Organization Address [facility]/State/[facility] Co de Phone Number [facility] [address] documented in this encounter Visit Diagnoses Diagnosis Abdominal pain, generalized Elevated LFTs Other abnormal blood chemistry Colitis Other and unspecified noninfectious gastroenteritis and colitis documented in this encounter Administered Medications Inactive Administered Medications - up to 3 most recent administrations Medication Order MAR Action Action Date Dose Rate Site 0.9% NaCl injection 1-10 mL 1-10 mL, Intracatheter, PRN, Other, peripheral line flush, Starting on Tue09/28/19 at 0301, Until Tue09/28/19 at 1131, Flush peripheral IV catheter with 1-10 mL of normal saline before and after medications and prn to clear blood from the line or to verify patency. $ Given 09/28/2019 9:26 AM COORDINATE MEASURING MACHINE OPERATOR 10 mL $ Given 09/28/2019 8:51 AM COORDINATE MEASURING MACHINE OPERATOR 10 mL 0.9% NaCl injection 3 mL 3 mL, Intracatheter, EVERY 8 HOURS, First dose on Tue09/28/19 at 0600, Until Discontinued, Flush peripheral IV catheter with 3 mL of normal saline every 8 hours. $ Given 09/28/2019 7:48 AM COORDINATE MEASURING MACHINE OPERATOR 3 mL 0.9% NaCl IV Bolus 1,000 mL, at 983.61 mL/hr, Administer over 61 Minutes, ONCE, 1 dose, On Tue09/28/19 at 0515 $ New Bag/Syringe 09/28/2019 4:59 AM COORDINATE MEASURING MACHINE OPERATOR 1,000 mL 983.61 mL/hr ciprofloxacin (CIPRO) 400 mg in 200 mL IVPB 400 mg, at 200 mL/hr, Intravenous, NOW, 1 dose, On Tue09/28/19 at 0700, Indication for anti-infective therapy: Documented infection, Site of anti-infective therapy: Intra-abdominal $ New Bag/Syringe 09/28/2019 7:49 AM COORDINATE MEASURING MACHINE OPERATOR 400 mg 200 mL/hr hyoscyamine tablet 0.125 mg 0.125 mg, Oral, NOW, 1 dose, On Tue09/28/19 at 0500 $ Given 09/28/2019 5:02 AM COORDINATE MEASURING MACHINE OPERATOR 0.125 mg iopamidol (ISOVUE 300) 61 % contrast Intravenous, CONTRAST ONCE, Starting on Tue09/28/19 at 0626, Until Tue09/28/19 at 1131 $ Given - Contrast 09/28/2019 6:26 AM COORDINATE MEASURING MACHINE OPERATOR 100 mL ketorolac (TORADOL) injection 30 mg 30 mg, Intravenous, NOW, 1 dose, On Tue09/28/19 at 0500 $ Given 09/28/2019 5:01 AM COORDINATE MEASURING MACHINE OPERATOR 30 mg metroNIDAZOLE (FLAGYL) 500 mg in 100 mL IVPB 500 mg, at 200 mL/hr, Intravenous, NOW, 1 dose, On Tue09/28/19 at 0700, Indication for anti-infective therapy: Documented infection, Site of anti-infective therapy: Intra-abdominal $ New Bag/Syringe 09/28/2019 8:52 AM COORDINATE MEASURING MACHINE OPERATOR 500 mg 200 mL/hr ondansetron (ZOFRAN) injection 4 mg 4 mg, Intravenous, NOW, 1 dose, On Tue09/28/19 at 0500, Administer over 2 to 5 minutes. $ Given 09/28/2019 5:00 AM COORDINATE MEASURING MACHINE OPERATOR 4 mg documented in this encounter Active and Recently Administered Medications Times are shown in COORDINATE MEASURING MACHINE OPERATOR. Scheduled Medication Order 09/26/2019 09/27/201909/2809/28/2019 0.9% NaCl injection 3 mL(Linked Group 1) 3 mL, Intracatheter, EVERY 8 HOURS, First dose on Tue09/28/19 at 0600, Until Discontinued, Flush peripheral IV catheter with 3 mL of normal saline every 8 hours. 0748 ($ Given - Prov ider: Marya Kearns RN) 0.9% NaCl IV Bolus (COMPLETED) 1,000 mL, at 983.61 mL/hr, Administer over 61 Minutes, ONCE, 1 dose, On Tue09/28/19 at 0515 0459 ($ New Bag/Syri nge - Provider: Ai Wick, YUDELKA)0600 (Stopped - Provider: Leela Wharton RN) ciprofloxacin (CIPRO) 400 mg in 200 mL IVPB (COMPLETED) 400 mg, at 200 mL/hr, Intravenous, NOW, 1 dose, On Tue09/28/19 at 0700, Indication for anti-infective therapy: Documented infection, Site of anti-infective therapy: Intra-abdominal 0749 ($ New Bag/Syri nge - Provider: Marya Kearns RN)0851 (Stopped - Provider: Marya Kearns, YUDELKA) hyoscyamine tablet 0.125 mg (COMPLETED) 0.125 mg, Oral, NOW, 1 dose, On Tue09/28/19 at 0500 0502 ($ Given - Prov ider: Ai Wick, YUDELKA) iopamidol (ISOVUE 300) 61 % contrast Intravenous, CONTRAST ONCE, Starting on Tue09/28/19 at 0626, Until Tue09/28/19 at 1131 0626 ($ Given - Cont rast - Provider: Mohsen Brown) ketorolac (TORADOL) injection 30 mg (COMPLETED) 30 mg, Intravenous, NOW, 1 dose, On Tue09/28/19 at 0500 0501 ($ Given - Prov ider: Ai Wick, YUDELKA) metroNIDAZOLE (FLAGYL) 500 mg in 100 mL IVPB (COMPLETED) 500 mg, at 200 mL/hr, Intravenous, NOW, 1 dose, On Tue09/28/19 at 0700, Indication for anti-infective therapy: Documented infection, Site of anti-infective therapy: Intra-abdominal 0852 ($ New Bag/Syri nge - Provider: Marya Kearns RN)0926 (Stopped - Provider: Marya Kearns RN) ondansetron (ZOFRAN) injection 4 mg (COMPLETED) 4 mg, Intravenous, NOW, 1 dose, On Tue09/28/19 at 0500, Administer over 2 to 5 minutes. 0500 ($ Given - Prov ider: Ai Wick, YUDELKA) PRN Medication Order 09/26/2019 09/27/2019 09/28/2019 0.9% NaCl injection 1-10 mL(Linked Group 1) 1-10 mL, Intracatheter, PRN, Other, peripheral line flush, Starting on Tue09/28/19 at 0301, Until Tue09/28/19 at 1131, Flush peripheral IV catheter with 1-10 mL of normal saline before and after medications and prn to clear blood from the line or to verify patency. 0851 ($ Given - Prov ider: Marya Kearns RN)0926 ($ Given - Provider: Marya Kearns RN) Linked Groups Order Group 1: SALINE LOCK, INSERT AND MAINTAIN (CANCELED) Routine, CONTINUOUS, Starting on Tue09/28/19 at 0315, Until Specified, New collection And 0.9% NaCl injection 3 mLJump to med 3 mL, Intracatheter, EVERY 8 HOURS, First dose on Tue09/28/19 at 0600, Until Discontinued, Flush peripheral IV catheter with 3 mL of normal saline every 8 hours. And 0.9% NaCl injection 1-10 mLJump to med 1-10 mL, Intracatheter, PRN, Other, peripheral line flush, Starting on Tue09/28/19 at 0301, Until Tue09/28/19 at 1131, Flush peripheral IV catheter with 1-10 mL of normal saline before and after medications and prn to clear blood from the line or to verify patency. documented in this encounter
--- OUTSIDE RECORDS SUMMARY | 2024-10-02 02:33 | XMS_ITS | Encounter Summary ---
Author Organization [facility] Healthcare Address [address] [place] [address] Care Team Providers Care Group Leader Name Role Phone Preston Moulton Primary Care Provider [phone] Encounter Details Date Type Department Care Team (Late st Contact Info) Description 11/22/2023 Orders Only [facility] Medical Group Primary Care [address] [facility] [address] [place] [address] Preston Moulton PA [address] [place] [address] Social History Tobacco Use Types Packs/Day Years [...] often do you attend chur ch or caodaism services? More than 4 times per year 02/11/2023 Do you belong to any clubs o r organizations such as sabianist groups, unions, fraternal or athletic groups, or [...] on file Legal Sex Male 9:22 AM MOLDER INFLATED BALL Gender Identity Male 11/18/2021 1:25 PM MOLDER INFLATED BALL Sexual Orientation Straight 11/18/2021 1: 25 PM MOLDER INFLATED BALL documented as of this encounter Ordered Prescriptions Prescription Sig Dispense Quantity Refills Last Filled Start Date End Date metFORMIN (GLUCOPHAGE) 500 mg tablet Take 2 tablets (1,000 mg total) by mouth 2 (two) times a day with meals 360 tablet 3 11/22/2023 4 documented in this encounter Plan of Treatment Not on file documented as of this encounter Visit Diagnoses Not on filedocumented in this encounter Discontinued Medications Medication Sig Discontinue Reason Start Date End Da te metFORMIN XR (GLUCOPHAGE XR) 500 mg 24 hr tabletIndications:Type 2 diabetes mellitus with hyperglycemia, without long-term current use of insulin (HCC) Take 2 tablets (1,000 mg total) by mouth 2 (two) times a day after breakfast and dinner Take 3 tablets nightly. E11.65 11/21/2023 11/22/2023 documented as of this encounter Care Teams Group Leader Relationship Specialty Start Date End Date Preston Moulton PA PCP - General Family Medicine 03/10/23 documented as of this encounter
--- OUTSIDE RECORDS SUMMARY | 2024-10-02 02:33 | XMS_ITS | Encounter Summary ---
Author Organization [facility] Healthcare Address [address] [place] [address] Care Team Providers Care Digester Operator Name Role Phone Preston Moulton Primary Care Provider [phone] Reason for Visit * Reason Onset Date Comments Lab Results 03/21/2024 Encounter Details Date Type Department Care Team (Late st Contact Info) Description 03/21/2024 Telephone [facility] Medical Group Primary Care [address] [facility] [address] [place] [address] Betsy Salinas MA Lab Results Social History Tobacco Use Types Packs/Day Years [...] often do you attend chur ch or confucianism services? More than 4 times per year 02/11/2023 Do you belong to any clubs o r organizations such as episcopalian groups, unions, fraternal or athletic groups, or [...] place to sleep or slept in a fci (including now)? No 02/11/2023 Personal Safety Answer Date Recorded Have you ever been in or are you currently in a harmful physical or emotional relationship or is someone making you feel afraid or unsafe? Denies 10/21/2023 Sex and Gender Information Value Date Recorded Sex Assigned at Not on file Legal Sex Male 9:22 AM FEATHER RENOVATOR Gender Identity Male 11/18/2021 1:25 PM FEATHER RENOVATOR Sexual Orientation Straight 11/18/2021 1: 25 PM FEATHER RENOVATOR documented as of this encounter Miscellaneous Notes * Telephone Encounter - Betsy Salinas, MARIAH - 03/21/2024 5:05 PM CDT Notified patient what Jorden advised. Patient states that he saw results. Is taking his Tricor andCrestor every day. States that night before had fried chicken--late dinner. Also had cook islander dip sandwich and pretzel. Did not know if that would be the cause of the test results since there is a lot of salt. Also patient states that before he got his blood work done that he did vomit because he took medications without eating. * Telephone Encounter - Muna Morley - 03/21/2024 12:44 PM CDT Patient returning call. * Telephone Encounter - Yaneth Holley MA - 03/21/2024 12:43 PM CDT Call Back Caller???s Concern: Patient warm transferred to back line, [facility]. Does message need to be routed? No * Telephone Encounter - Betsy Salinas MA - 03/21/2024 10:33 AM CDT Left message to return my call * Telephone Encounter - Betsy Salinas MA - 03/21/2024 6:23 AM CDT ----- Message from ALFREDITO Narvaez sent at 03/20/2024 2:40 PM CDT ----- Lipids are absolutely horrible is the reason why he is off his lipid meds ----- Message ----- From: Interface, Lab Results In Sent: 03/20/2024 10:53 AM CDT To: ALFREDITO Rivas documented in this encounter Plan of Treatment Not on file documented as of this encounter Visit Diagnoses Not on filedocumented in this encounter Care Teams Digester Operator Relationship Specialty Start Date End Date Preston Moulton PA PCP - General Family Medicine 03/10/23 documented as of this encounter
--- OUTSIDE RECORDS SUMMARY | 2024-10-02 02:33 | XMS_ITS | Encounter Summary ---
Author Organization [facility] Healthcare Address [address] [place] [address] Care Team Providers Care Core Microarchitect Name Role Phone Preston Moulton Primary Care Provider [phone] Encounter Details Date Type Department Care Team (Late st Contact Info) Description 12/12/2023 Orders Only [facility] Medical Group Primary Care [address] [facility] [address] [place] [address] Preston Moulton PA [address] [place] [address] Social History Tobacco Use Types [...] often do you attend chur ch or adventism services? More than 4 times per year 02/11/2023 Do you belong to any clubs o r organizations such as anabaptist groups, unions, fraternal or athletic groups, or [...] place to sleep or slept in a nursing home (including now)? No 02/11/2023 Personal Safety Answer Date Recorded Have you ever been in or are you currently in a harmful physical or emotional relationship or is someone making you feel afraid or unsafe? Denies 10/21/2023 Sex and Gender Information Value Date Recorded Sex Assigned at Not on file Legal Sex Male 9:22 AM MOTOR EQUIPMENT COMMANDING OFFICER Gender Identity Male 11/18/2021 1:25 PM MOTOR EQUIPMENT COMMANDING OFFICER Sexual Orientation Straight 11/18/2021 1: 25 PM MOTOR EQUIPMENT COMMANDING OFFICER documented as of this encounter Ordered Prescriptions Prescription Sig Dispense Quantity Refills Last Filled Start Date End Date dapagliflozin propanediol (FARXIGA) 10 mg tablet Take 1 tablet (10 mg total) by mouth daily 90 tablet 3 12/12/2023 documented in this encounter Plan of Treatment Not on file documented as of this encounter Visit Diagnoses Not on filedocumented in this encounter Discontinued Medications Medication Sig Discontinue Reason Start Date End Da te empagliflozin (JARDIANCE) 25 mg tablet Take 1 tablet (25 mg total) by mouth daily 11/21/2023 12/12/2023 documented as of this encounter Care Teams Core Microarchitect Relationship Specialty Start Date End Date Preston Moulton PA PCP - General Family Medicine 03/10/23 documented as of this encounter
--- OUTSIDE RECORDS SUMMARY | 2024-10-02 02:33 | XMS_ITS | Encounter Summary ---
Author Organization [facility] Healthcare Address [address] [place] [address] Care Team Providers Care Sound Recordist Name Role Phone Preston Moulton Primary Care Provider [phone] Encounter Details Date Type Department Care Team (Late st Contact Info) Description 06/25/2024 Telephone [facility] Medical Group Diabetes Endocrine Care at [address] [place] [id number] Jessica Genao, OCCUPATIONAL THERAPIST [address] [facility] [address] [place] [address] Social History Tobacco Use Types Packs/Day Years [...] often do you attend chur ch or jain services? More than 4 times per year 02/11/2023 Do you belong to any clubs o r organizations such as restoration groups, unions, fraternal or athletic groups, or [...] place to sleep or slept in a [place] (including now)? No 02/11/2023 Personal Safety Answer Date Recorded Have you ever been in or are you currently in a harmful physical or emotional relationship or is someone making you feel afraid or unsafe? Denies 10/21/2023 Sex and Gender Information Value Date Recorded Sex Assigned at Not on file Legal Sex Male 9:22 AM FUND RAISER Gender Identity Male 11/18/2021 1:25 PM FUND RAISER Sexual Orientation Straight 11/18/2021 1: 25 PM FUND RAISER documented as of this encounter Miscellaneous Notes * Telephone Encounter - Jessica Genao NP - 06/25/2024 11:04 AM CDT Needs an appointment. Not seen since 05/18 documented in this encounter Plan of Treatment Not on file documented as of this encounter Visit Diagnoses Diagnosis Type 2 diabetes mellitus with hyperglycemia, with long-term current use of insulin (HCC) Type 2 diabetes mellitus with hyperglycemia, without long-term current use of insulin (HCC) documented in this encounter Care Teams Sound Recordist Relationship Specialty Start Date End Date Preston Moulton PA PCP - General Family Medicine 03/10/23 documented as of this encounter
--- OUTSIDE RECORDS SUMMARY | 2024-10-02 02:33 | XMS_ITS | Encounter Summary ---
Author Organization [facility] Healthcare Address [address] [place] [address] Care Team Providers Care Burn Out Tender Lace Name Role Phone Preston Moulton Primary Care Provider [phone] Encounter Details Date Type Department Care Team (Late st Contact Info) Description 03/20/2024 8:05 AM CDT [facility] Building [address] [address] Type 2 diabetes mellitus with hyperglycemia, with long-term current use of insulin (HCC); Mixed hyperlipidemia; Type 2 diabetes mellitus with hyperglycemia, with long-term current use of insulin (HCC); Type 2 diabetes mellitus with hyperglycemia, without [...] often do you attend chur ch or christian services? More than 4 times per year 02/11/2023 Do you belong to any clubs o r organizations such as adventist groups, unions, fraternal or athletic groups, or [...] place to sleep or slept in a senior care (including now)? No 02/11/2023 Personal Safety Answer Date Recorded Have you ever been in or are you currently in a harmful physical or emotional relationship or is someone making you feel afraid or unsafe? Denies 10/21/2023 Sex and Gender Information Value Date Recorded Sex Assigned at Not on file Legal Sex Male 9:22 AM CHIEF PROCUREMENT OFFICER Gender Identity Male 11/18/2021 1:25 PM CHIEF PROCUREMENT OFFICER Sexual Orientation Straight 11/18/2021 1: 25 PM CHIEF PROCUREMENT OFFICER documented as of this encounter Plan of Treatment Not on file documented as of this encounter Procedures Procedure Name Priority Date/Time Associated Diagnosis Comments EGFR Routine 03/20/2024 8:14 AM CDT Type 2 diabetes mellitus with hyperglycemia, with long-term current use of insulin ([facility]) Mixed hyperlipidemia THYROID FUNCTION CASCADE Routine 03/20/2024 8:14 AM CDT Type 2 diabetes mellitus with hyperglycemia, without long-term current use of insulin (CMS/HCC) ([facility]) CHOLESTEROL, LDL, DIRECT Routine 03/20/2024 8:14 AM CDT Type 2 diabetes mellitus with hyperglycemia, with long-term current use of insulin ([facility]) Mixed hyperlipidemia HEMOGLOBIN A1C Routine 03/20/2024 8:14 AM CDT Type 2 diabetes mellitus with hyperglycemia, with long-term current use of insulin ([facility]) LIPID PANEL Routine 03/20/2024 8:14 AM CDT Type 2 diabetes mellitus with hyperglycemia, with long-term current use of insulin ([facility]) Mixed hyperlipidemia COMPREHENSIVE METABOLIC PANEL Routine 03/20/2024 8:14 AM CDT Type 2 diabetes mellitus with hyperglycemia, with long-term current use of insulin ([facility]) Mixed hyperlipidemia ALBUMIN CREATININE RATIO, URINE Routine 03/20/2024 8:08 AM CDT Type 2 diabetes mellitus with hyperglycemia, with long-term current use of insulin ([facility]) documented in this encounter Results * eGFR (03/20/2024 8:14 AM CDT) [facility] eGFR >90 >=60 mL/min/1. 73 m2 Comment: [...] was last reviewed 2021. Testing performed by: [facility], [address] [place] [address]., [id number] Blood 03/20/2024 8:14 AM CDT 03/20/2024 12:01 PM CDT us Preston GLASER LAB BLOOD ORDERABLES Final Resu lt EQUKZL SH [address] [facility] Department [place] [address] * Cholesterol, LDL, direct (03/20/2024 8:14 AM CDT) LDL Cholesterol, Direct 26 <=129 mg/dL Comment: Interpretive Data Ages < or [...] last revised on 2018. Testing performed by: [address] [address] Blood 03/20/2024 8:14 AM CDT 03/20/2024 12:01 PM CDT Narrative ELLIOT - 03/20/2024 2:19 PM CDT Cholesterol, LDL, direct reflexed based on Elevated Triglyceride (>400) Preston GLASER LAB BLOOD ORDERABLES Final Resu lt Performing Organization Address [facility] Co de Phone Number [place] [address] [facility] [address] [place] [address] * Thyroid Function Lares (03/20/2024 8:14 AM CDT) TSH 1.10 0.30 - 4.20 mcIUnit/mL Comment:Testing performed by : [address] [address] Blood 03/20/2024 8:14 AM CDT 03/20/2024 11:55 AM CDT Preston GLASER LAB BLOOD ORDERABLES Final Resu lt Performing Organization Address City/[facility]/ZIP Co de Phone Number [facility] [address] [facility] [place] [address] * (ABNORMAL) Hemoglobin A1c (03/20/2024 8:14 AM CDT) Hgb A1C 7.7(H) 4.0 - 5.6 % Comment:Testing performed by : [address] [address] Estimated Average Glucose 174 mg/dL ELLIOT Comment: The ADA recommends reporting an estimated Average Glucose (eAG) with all Hemoglobin A1c results using the equation derived from a study of 507 normal and diabetic adults. ??Minority populations were underrepresented and children were not included. ?? (Diabetes Care 31:5400-0219, 2008). ??The eAG is not equivalent to a fasting glucose. Testing performed by: [address] [address] Blood 03/20/2024 8:14 AM CDT 03/20/2024 10:17 AM CDT Preston GLASER LAB BLOOD ORDERABLES Final Resu lt [facility] [address] [facility] Department [place] [address] * (ABNORMAL) Comprehensive metabolic panel (03/20/2024 8:14 AM CDT) Sodium 136 135 - 145 mmol/L Comment:Testing performed by : [address] [address] Potassium, pl 4.4 3.3 - 4.9 mmol/L ELLIOT Comment:Testing performed by : [address] [address] Chloride 97 97 - 110 mmol/L ELLIOT Comment:Testing performed by : [address] [address] CO2 22 22 - 32 mmol/L ELLIOT Comment:Testing performed by : [address] [address] Anion gap 17(H) 2 - 15 mmol/L ELLIOT Comment:Testing performed by : [address] [address] BUN 16 6 - 25 mg/dL ELLIOT Comment:Testing performed by : [address] [address] Creatinine 0.90 0.80 - 1.30 mg/dL ELLIOT Comment:Testing performed by : [address] [address] Glucose 213(H) 70 - 199 mg/dL ELLIOT Comment: Interpretive [...] was last revised 2022. Testing performed by: [address] [address] Calcium 9.7 8.5 - 10.3 mg/dL ELLIOT Comment:Testing performed by : [address] [address] Bilirubin, total 0.6 0.1 - 1.2 mg/dL ELLIOT Comment:Testing performed by : [address] [address] Protein, pl 8.0 6.5 - 8.5 g/dL ELLIOT Comment:Testing performed by : [address] [address] Albumin 4.9 3.5 - 5.0 g/dL ELLIOT Comment:Testing performed by : [address] [address] Alk phos 82 40 - 130 Units/L ELLIOT Comment:Testing performed by : [address] [address] ALT 40 7 - 55 Units/L ELLIOT Comment: Lipemic specimen Testing performed by: [address] [address] AST 22 10 - 50 Units/L ELLIOT Comment: Lipemic specimen Testing performed by: [address] [address] Blood 03/20/2024 8:14 AM CDT 03/20/2024 11:55 AM CDT Preston GLASER LAB BLOOD ORDERABLES Final Resu lt ELLIOT [address] [facility] Department [place] [address] * (ABNORMAL) Lipid panel (03/20/2024 8:14 AM CDT) [facility] Signature Cholesterol 300(H) 30 - 199 mg/dL Comment: [...] last revised on 2018. Testing performed by: [facility], [address] [place] [address]., [address] Triglycerides 2,236(H) <=149 mg/dL ELLIOT HINES Comment: [...] last revised on 2018. Testing performed by: [address] [address] HDL 18(L) >=40 mg/dL ELLIOT Comment: Interpretive Data Ages < or = [...] last revised on 2018. Testing performed by: [address] [address] LDL, calculated See Comment <=129 mg/dL ELLIOT Comment: Unable to calculate due to elevated [...] last revised on 2018. Testing performed by: [address] [address] Non-HDL Cholesterol 282 mg/dL ELLIOT Comment: Interpretive Data Ages < or = [...] last revised on 2018. Testing performed by: [address] [address] Chol/HDL ratio 17 ELLIOT HINES Comment:Testing performed by : [address] [address] Blood 03/20/2024 8:14 AM CDT 03/20/2024 11:55 AM CDT us Preston GLASER LAB BLOOD ORDERABLES Final Resu lt [facility]OT [address] [facility] Department [place] [address] * (ABNORMAL) Albumin Creatinine Ratio, Urine (03/20/2024 8:08 AM CDT) Albumin Ur 266.8 mg/L Comment: Interpretive Data No reference range established. Current interpretive data was last revised 2019. Testing performed by: [address] [address] Creatinine Ur 54.6 mg/dL ELLIOT HINES Comment: Interpretive Data No reference range established. Current interpretive data was last revised 2019. Testing performed by: [address] [address] Albumin Creatinine Ratio, Ur 489(H) 1 - 29 mg/g ELLIOT HINES Comment:Testing performed by : [address] [address] Urine 03/20/2024 8:08 AM CDT 03/20/2024 10:15 AM CDT Preston GLASER LAB URINE ORDERABLES Final Resu lt [facility]LLIOT [facility] Department [place] [address] documented in this encounter Visit Diagnoses Diagnosis Type 2 diabetes mellitus with hyperglycemia, with long-term current use of insulin (HCC) Mixed hyperlipidemia Type 2 diabetes mellitus with hyperglycemia, without long-term current use of insulin (HCC) documented in this encounter Care Teams Burn Out Tender Lace Relationship Specialty Start Date End Date Preston Moulton PA PCP - General Family Medicine 03/10/23 documented as of this encounter
--- OUTSIDE RECORDS SUMMARY | 2024-10-02 02:33 | XMS_ITS | Encounter Summary ---
Author Organization [facility] Health Address [address] [place] [address] Care Team Providers Care Handcrew Foreman Name Role Phone Unknown, Provider Primary Care Provider Unavaila ble Reason for Visit * Reason Onset Date Comments DRUG SCREEN 12/17/2013 Encounter Details Date Type Department Care Team (Latest Contact Info) Description 12/17/2013 10:15 AM CDT Clinical Support [facility] OCCUPATIONAL MEDICIINE [address] [place] [phone] Health examination of defined subpopulation Social History Tobacco Use Types Packs/Day Years Used Date Smoking Tobacco: Never Assessed Sex and Gender Information Value Date Recorded Sex Assigned at Male 10/10/2021 1:14 AM SUPERVISOR PUBLIC MESSAGE SERVICE Gender Identity Male 10/10/2021 1:14 AM SUPERVISOR PUBLIC MESSAGE SERVICE Sexual Orientation Not on file documented as of this encounter Progress Notes * Carrie Rivera - 12/17/2013 11:06 AM CDT Patient referred for drug screening. documented in this encounter Plan of Treatment Not on file documented as of this encounter Visit Diagnoses Diagnosis Health examination of defined subpopulation- Primary documented in this encounter Care Teams Handcrew Foreman Relationship Specialty Start Date End Date Unknown, Provider PCP - General 12/17/13 02/12/14 documented as of this encounter
--- OUTSIDE RECORDS SUMMARY | 2024-10-02 02:33 | XMS_ITS | Encounter Summary ---
Author Organization [facility] Healthcare Address [address] [place] [address] Care Team Providers Care Line Construction Superintendent Name Role Phone Preston Moulton Primary Care Provider [phone] Reason for Visit * Reason Comments Headache Encounter Details Date Type Department Care Team (Late st Contact Info) Description 09/20/2024 8:36 PM [facility] - 09/21/2024 12:15 AM [facility] Emergency [facility] Emergency Department [facility] [place] [address] Mohsen Orona, [address] [place] [address] Migraine with status migrainosus, not intractable, unspecified migraine type (Primary Dx); Hypoglycemia; Abnormality, hemoglobin (HCC); Dehydration Discharge Disposition: Discharge to home or self care Social History Tobacco Use Types Packs/Day Years [...] often do you attend chur ch or anabaptist services? More than 4 times per year 02/11/2023 Do you belong to any clubs o r organizations such as evangelical groups, unions, fraternal or athletic groups, or [...] place to sleep or slept in a care home (including now)? No 02/11/2023 Personal Safety Answer Date Recorded Have you ever been in or are you currently in a harmful physical or emotional relationship or is someone making you feel afraid or unsafe? Denies 09/20/2024 Sex and Gender Information Value Date Recorded Sex Assigned at Not on file Legal Sex Male 9:22 AM PAPIER MACHE' MOLDER Gender Identity Male 11/18/2021 1:25 PM PAPIER MACHE' MOLDER Sexual Orientation Straight 11/18/2021 1: 25 PM PAPIER MACHE' MOLDER documented as of this encounter Last Filed Vital Signs Vital Sign Reading Time Taken Comments Blood Pressure 117/86 09/20/2024 11:00 PM PAPIER MACHE' MOLDER Pulse 92 09/20/2024 11:45 PM PAPIER MACHE' MOLDER Temperature 37 ??C (98.6 ??F) 09/20/2024 2:27 PM PAPIER MACHE' MOLDER Respiratory Rate 16 09/20/2024 10:00 PM PAPIER MACHE' MOLDER Oxygen Saturation 95% 09/20/2024 11:45 PM PAPIER MACHE' MOLDER Inhaled Oxygen Concentration - - Weight 68 kg (150 lb) 09/20/2024 2:27 PM PAPIER MACHE' MOLDER Height 172.7 cm (5' 8 ) 09/20/2024 2:27 PM PAPIER MACHE' MOLDER Body Mass Index 22.81 09/20/2024 2:27 PM PAPIER MACHE' MOLDER documented in this encounter Discharge Instructions * Discharge Instructions* Mohsen Oroan DO - 09/20/2024 11:43 PM PAPIER MACHE' MOLDER Take prescription medication for severe migraine otherwise continue excedrine for mild/moderate headache. ER MACHE' MOLDER * Attachments The following attachments cannot be sent through Care Everywhere. * Migraine Headache (Discharge Care) (Somali) documented in this encounter Medications at Time of Discharge acetaminophen (TYLENOL) 325 mg tabletIndications:Fev er,Pain Take 2 tablets (650 mg total) by mouth every 4 (four) hours as needed for pain, headaches or fever 10/22/2023 blood-glucose meter kitIndications:Type 2 diabetes mellitus with hyperglycemia, without long-term current use of insulin (HCC) Use as directed to check blood glucose four times per day 1 kit 02/08/2023 dapagliflozin propanediol (FARXIGA) 10 mg tablet Take 1 tablet (10 mg total) by mouth daily 90 tablet 3 12/12/2023 fenofibrate nanocrystallized (TRICOR) 145 mg tabletIndications:Hyp ertriglyceridemia Take 1 tablet (145 mg total) by mouth nightly 90 tablet 3 03/20/2024 insulin glargine (LANTUS, SEMGLEE) 100 unit/mL vial for injectionIndications: Type 2 diabetes mellitus with hyperglycemia, without long-term current use of insulin (HCC) Inject 50 Units under the skin nightly 03/20/2024 02/04/20 25 insulin lispro (HumaLOG, ADMELOG) 100 unit/mL vial for injectionIndications: Type 2 diabetes mellitus with hyperglycemia, with long-term current use of insulin ([facility]) Inject 20 Units under the skin 3 (three) times a day before meals 03/20/2024 insulin syringe-needle U-100 1 mL 31 gauge x 5/16 syringe Use to inject 1-4 times daily as directed. 300 each 4 02/15/2023 Jardiance 25 mg tablet Take 1 tablet (25 mg total) by mouth daily 03/20/2024 lancets miscIndications:diabe ayan Use as directed to check blood glucose 4 times per day 200 each 3 02/08/2023 metFORMIN (GLUCOPHAGE) 500 mg tablet Take 2 tablets (1,000 mg total) by mouth 2 (two) times a day with meals 360 tablet 3 12/12/2023 12/12/[address] (PROTONIX) 40 mg EC tabletIndications:Gas troesophageal reflux disease without esophagitis Take 1 tablet (40 mg total) by mouth daily as needed (GERD) 90 tablet 3 01/17/2024 pen needle, diabetic 31 gauge x 5/16 needleIndications:Typ e 2 diabetes mellitus with hyperglycemia, without long-term current use of insulin ([facility]) Use to inject 1-4 times daily as directed. 300 each 02/08/2023 rizatriptan GRAPHICS PRODUCTION SPECIALIST (MAXALT-GRAPHICS PRODUCTION SPECIALIST) 10 mg disintegrating tabletIndications:Enrrique maria luz Take 1 tablet (10 mg total) by mouth once as needed for migraine May repeat in 2 hours if unresolved. Do not exceed 30 mg in 24 hours. 15 tablet 1 09/20/2024 09/20/20 25 rosuvastatin (CRESTOR) 20 mg tabletIndications:Hyp ertriglyceridemia Take 1 tablet (20 mg total) by mouth nightly 90 tablet 3 03/20/2024 documented as of this encounter Ordered Prescriptions Prescription Sig Dispense Quantity Refills Last Filled Start Date End Date rizatriptan GRAPHICS PRODUCTION SPECIALIST (MAXALT-GRAPHICS PRODUCTION SPECIALIST) 10 mg disintegrating tabletIndications:Corinne rapp Take 1 tablet (10 mg total) by mouth once as needed for migraine May repeat in 2 hours if unresolved. Do not exceed 30 mg in 24 hours. 15 tablet 1 09/20/2024 5 documented in this encounter Discharge Disposition Disposition Code Departure Means Destination Comment s Discharge to home or self care documented in this encounter ED Notes * Mohsen Orona, DO - 09/20/2024 10:41 PM CST HPI Chief Complaint Patient presents with Headache Chadwick Holcomb is a 44 y.o. male w/ PMHx including type II DM, HLD, and other PMHx as below presenting to the ED w/ c/o headache. Pt arrives to the ED w/ complaints of a headache that has been rather constant for the last approximate 2x weeks. Pt reports that the pain is primarily located to the L hinduism region. Pt claims he checks his BG regularly, and it's typically ~120. Pt admits to increased stress from baseline secondary to his occupation. Pt states he's tried taking Excedrin and aleve PTAwhich ultimately provided minimal relief. Pt denies any other symptoms. Pt has no other acute complaints. History provided by: Patient Patient History: Past Medical History: Diagnosis Date Abdominal pain 02/10/[address] of the abdomen 02/23/2023 Acute pancreatitis Diabetes mellitus (HCC) Diabetic ketoacidosis without coma associated with other specified diabetes mellitus (HCC) 02/10/2023 Elevated glucose 03/05/2021 Vision changes 02/23/2023 Past Surgical History: Procedure Laterality Date CHOLECYSTECTOMY Family History Problem Relation Age of Onset Cancer Mother Diabetes Mother No Known Problems Father Hypertension Brother Social History Tobacco Use Smoking status: Never Smokeless tobacco: Not on file Substance and Sexual Activity Drug use: Never Sexual activity: Defer Alcohol Use: Unknown (03/20/2024) AUDIT-C Frequency of Alcohol Consumption: Monthly or less Average Number of Drinks: 1 or 2 Frequency of Binge Drinking: Not on file No current facility-administered medications for this encounter. Current Outpatient Medications: acetaminophen (TYLENOL) 325 mg tablet blood glucose diagnostic (glucose blood) strip blood-glucose meter kit dapagliflozin propanediol (FARXIGA) 10 mg tablet fenofibrate nanocrystallized (TRICOR) 145 mg tablet insulin glargine (LANTUS, SEMGLEE) 100 unit/mL vial for injection insulin lispro (HumaLOG, ADMELOG) 100 unit/mL vial for injection insulin syringe-needle U-100 1 mL 31 gauge x 5/16 syringe Jardiance 25 mg tablet lancets misc metFORMIN (GLUCOPHAGE) [address] (PROTONIX) 40 mg EC tablet pen needle, diabetic 31 gauge x 5/16 needle rizatriptan GRAPHICS PRODUCTION SPECIALIST (MAXALT-GRAPHICS PRODUCTION SPECIALIST) 10 mg disintegrating tablet rosuvastatin (CRESTOR) 20 mg tablet Review of Systems Review of Systems Constitutional: Negative for chills and fever. Respiratory: Negative for shortness of breath. Cardiovascular: Negative for chest pain. Neurological: Positive for headaches. Negative for seizures and syncope. All systems reviewed and are negative or noncontributory for this patients presentation today otherthan as stated in the HPI . Physical Exam ED Triage Vitals [09/20/24 1427] Temp Pulse Resp BP SpO2 37 ??C (98.6 ??F) 125 19 (!) 150/102 95 % Temp src Heart Rate Source Patient Position BP Location FiO2 (%) -- -- -- -- -- Height Height Method Weight Weight Method 1.727 m (5' 8 ) Stated 68 kg (150 lb) Stated Physical Exam Vitals and nursing note reviewed. Constitutional: General: He is not in acute distress. Appearance: Normal appearance. He is not ill-appearing. HENT: Head: Normocephalic and atraumatic. Right Ear: External ear normal. Left Ear: External ear normal. Nose: Nose normal. Eyes: Extraocular Movements: Extraocular movements intact. Conjunctiva/sclera: Conjunctivae normal. Pupils: Pupils are equal, round, and reactive to light. Cardiovascular: Rate and Rhythm: Normal rate. Pulmonary: Effort: Pulmonary effort is normal. No respiratory distress. Musculoskeletal: Cervical back: Normal range of motion. Skin: General: Skin is warm and dry. Neurological: General: No focal deficit present. Mental Status: He is alert and oriented to person, place, and time. Psychiatric: Behavior: Behavior normal. Procedures MDM Labs Reviewed URINALYSIS AND REFLEX TO MICROSCOPIC AND CULTURE - Abnormal Result Value Color, ur Straw Clarity, ur Clear Specific gravity, ur 1.035 (*) pH, urine 5.5 Protein, ur ql 1+ (*) Glucose, ur ql 4+ (*) Ketones, ur 1+ (*) Bilirubin, ur Negative Blood, ur Negative Urobilinogen, ur <2.0 Nitrite, ur Negative Leukocyte esterase, ur Negative UA reflex comment Reflex to microscopic UA will be performed. COMPREHENSIVE METABOLIC PANEL - Abnormal Sodium 126 (*) Potassium, pl 4.4 Chloride 88 (*) CO2 19 (*) Anion gap 19 (*) BUN 14 Creatinine 0.60 (*) Glucose 456 (*) Calcium 9.4 Bilirubin, total 0.3 Protein, pl 6.6 Albumin 3.9 Alk phos 87 ALT 5 (*) AST 5 (*) Narrative: Critical result called to and read back by [email or web address] (_) on 09/20/2024 15:57:20 CST_ to [id number] CBC WITH AUTO DIFFERENTIAL - Abnormal WBC 13.1 (*) Hgb 20.7 (*) Hct 36.2 (*) Plt 375 MPV 9.4 RBC 4.35 MCV 83.2 MCH 47.6 (*) MCHC 57.2 (*) RDW CV 13.5 RDW SD 41.1 NRBC abs 0.00 DIFFERENTIAL AUTO - Abnormal Neutrophil abs 8.9 (*) Imm gran abs 0.1 Lymphocyte abs 2.7 Monocyte abs 1.0 (*) Eosinophil abs 0.3 Basophil abs 0.1 Neutrophil pct 67.6 Imm gran pct 1.1 Lymphocyte pct 20.5 Monocyte pct 7.7 Eosinophil pct 2.6 Basophil pct 0.5 BETA-HYDROXYBUTYRATE - Abnormal Beta-Hydroxybutyrate 2.9 (*) BASIC METABOLIC PANEL - Abnormal Sodium 133 (*) Potassium, pl 4.1 Chloride 99 CO2 16 (*) Anion gap 18 (*) BUN 14 Creatinine 0.60 (*) Glucose 227 (*) Calcium 8.3 (*) CBC WITH AUTO DIFFERENTIAL - Abnormal WBC 11.1 (*) Hgb 19.9 (*) Hct 35.0 (*) Plt 347 MPV 9.4 RBC 4.15 (*) MCV 84.3 MCH 48.0 (*) MCHC 56.9 (*) RDW CV 13.3 RDW SD 40.9 NRBC abs 0.00 MANUAL DIFFERENTIAL - Abnormal Differential Manual Cells Counted 100 Neutrophil abs 5.7 Imm gran abs 0.0 Lymphocyte abs 4.9 (*) Monocyte abs 0.2 Eosinophil abs 0.3 Neutrophil pct 51.0 Lymphocyte pct 44.0 Monocyte pct 2.0 Eosinophil pct 3.0 POCT GLUCOSE DEVICE - Abnormal Glucose, POC 461 (*) Glucose comment 1 RN/MD Notified Glucose comment 2 Use This Result POCT GLUCOSE DEVICE - Abnormal Glucose, POC 350 (*) POC BLOOD GAS AND CHEMISTRIES, VENOUS - Abnormal pH,carlton POC 7.36 pCO2, carlton POC 36 (*) pO2,carlton POC 49 HCO3, carlton (Calc) POC 20 Base excess, carlton POC -4 POCT GLUCOSE DEVICE - Abnormal Glucose, POC 246 (*) Glucose comment 1 Use This Result Glucose comment 2 RN/MD Notified POCT GLUCOSE DEVICE - Abnormal Glucose, POC 231 (*) Glucose comment 1 Use This Result URINALYSIS, MICROSCOPIC ONLY WBC, ur 0-5 RBC, ur 0-2 Epithelial cells, squamous, ur 1-5 Culture Reflex Comment Value: Reflex conditions for urine culture (WBC >10) not met. EGFR eGFR >90 EGFR eGFR >90 BETA-HYDROXYBUTYRATE POCT GLUCOSE DEVICE POCT GLUCOSE DEVICE POCT GLUCOSE DEVICE POCT GLUCOSE DEVICE POCT GLUCOSE DEVICE Glucose, POC 189 Glucose comment 1 Use This Result Glucose comment 2 RN/MD Notified CT Head WO Contrast Final Result CT Head WO Contrast EXAM DESCRIPTION: CT HEAD WO CONTRAST REASON FOR STUDY: Headache, chronic, new features or increased frequency Patient here today with migraine/headache x2 weeks. Patient reports calling PCP who told him to come be seen. Reports associated photophobia and phonophobia. Attempted Excedrin migraine without relief. Had been taking medication for diabetes which had been causing headache, however is unable to get headache to go away. TECHNIQUE: Axial images acquired through the brain without intravenous contrast. Images stored on PACS. Automated exposure control was used as a [...] Fareed Weaver M.D. AG: CORNEL[employer] Report ID: [id number] Reading Location: [id number] BP 117/86 Pulse 92 Temp 37 ??C (98.6 ??F) Resp 16 Ht 172.7 cm (5' 8 ) Wt 68 kg (150 lb) SpO2 95% BMI 22.81 kg/m?? MDM ED Course as of 09/21/2442 Time: 09/20 2341 Comment: Pt has been re-evaluated. Pt reports his headache has greatly improved following migraine cocktail. Pt has been informed of lab and scan findings. Pt may be discharged w/ Rx maxalt. Pt understands to follow up w/ PCP. Recommend repeating blood counts w/in a week or two w/ PCP. Pt agreeablew/ disposition. By: Bartolome Juarez Clinical Impression: Migraine with status migrainosus, not intractable, unspecified migraine type Hypoglycemia Abnormality, hemoglobin (HCC) Dehydration This note was prepared by Bartolome Juarez, acting as a Scribe for Mohsen Orona DO. I electronically signed this note at 6:42 AM on 09/21/2024. I, Mohsen Orona DO, personally performed the services described in this documentation, reviewedand edited the documentation which was dictated to the scribe in my presence, and it accurately records my words and actions. Mohsen Orona DO 09/21/2442 ER MACHE' MOLDER * Claudia Aguila RN - 09/20/2024 2:26 PM CST Patient here today with migraine/headache x2 weeks. Patient reports calling PCP who told him to come be seen. Reports associated photophobia and phonophobia. Attempted Excedrin migraine without relief. Had been taking medication for diabetes which had been causing headache, however is unable to getheadache to go away. ER MACHE' MOLDER documented in this encounter Plan of Treatment Pending Results Name Type Priority Associated Diagnoses Date /Time Beta-hydroxybutyrate Lab STAT 08/27 2:33 PM PAPIER MACHE' MOLDER Scheduled Orders Name Type Priority Associated Diagnoses Orde r Schedule Beta-hydroxybutyrate Lab STAT Once for 1 Occurrences starting 09/20/2024 until 09/20/2024 documented as of this encounter Procedures Procedure Name Priority Date/Time Associated Diagnosis Comments POCT GLUCOSE DEVICE Routine 09/20/2024 1 1:37 PM PAPIER MACHE' MOLDER POCT GLUCOSE DEVICE Routine 09/20/2024 1 0:34 PM PAPIER MACHE' MOLDER CBC WITH AUTO DIFFERENTIAL STAT 09/20/2024 10:31 PM PAPIER MACHE' MOLDER MANUAL DIFFERENTIAL STAT 09/20/2024 1 0:31 PM PAPIER MACHE' MOLDER EGFR STAT 09/20/2024 9:22 PM PAPIER MACHE' MOLDER BASIC METABOLIC PANEL STAT 09/20/2024 9:22 PM PAPIER MACHE' MOLDER POCT GLUCOSE DEVICE Routine 09/20/2024 7 :34 PM PAPIER MACHE' MOLDER POC BLOOD GAS AND CHEMISTRIES, VENOUS Routine 09/20/2024 5:06 PM PAPIER MACHE' MOLDER POCT GLUCOSE DEVICE Routine 09/20/2024 4 :[address] HEAD WO CONTRAST ED 09/20/2024 4 :34 PM PAPIER MACHE' MOLDER URINALYSIS AND REFLEX TO MICROSCOPIC AND CULTURE STAT 09/20/2024 2:37 PM PAPIER MACHE' MOLDER URINALYSIS, MICROSCOPIC ONLY STAT 09/20/2024 2:37 PM PAPIER MACHE' MOLDER EGFR STAT 09/20/2024 2:33 PM PAPIER MACHE' MOLDER DIFFERENTIAL AUTO STAT 09/20/2024 2:3 3 PM PAPIER MACHE' MOLDER BETA-HYDROXYBUTYRATE STAT 09/20/2024 2:33 PM PAPIER MACHE' MOLDER CBC WITH AUTO DIFFERENTIAL STAT 09/20/2024 2:33 PM PAPIER MACHE' MOLDER COMPREHENSIVE METABOLIC PANEL STAT 09/20/2024 2:33 PM PAPIER MACHE' MOLDER POCT GLUCOSE DEVICE Routine 09/20/2024 2 :31 PM PAPIER MACHE' MOLDER documented in this encounter Results * POCT glucose (09/20/2024 11:37 PM PAPIER MACHE' MOLDER) Glucose, POC 189 70 - 199 mg/dL Comment:Testing performed by : [address] [address] Glucose comment 1 Use This Result ELLIOT Comment:Testing performed by : [address] [address] Glucose comment 2 RN/MD Notified ELLIOT Comment:Testing performed by : [address] [address] Blood 09/20/2024 11:3 7 PM PAPIER MACHE' MOLDER 09/20/2024 11:37 PM PAPIER MACHE' MOLDER Mohsen Orona DO LAB POCT ORDERABLES - DEVICE F inal Result [facility] [address] [facility] Department [place] [address] * (ABNORMAL) POCT glucose (09/20/2024 10:34 PM PAPIER MACHE' MOLDER) Glucose, POC 231(H) 70 - 199 mg/dL Comment:Testing performed by : [address] [address] Glucose comment 1 Use This Result ELLIOT Comment:Testing performed by : [address] [address] Blood 09/20/2024 10:3 4 PM PAPIER MACHE' MOLDER 09/20/2024 10:34 PM PAPIER MACHE' MOLDER us Mohsen Yeyo MCKEON LAB POCT ORDERABLES - DEVICE F inal Result ELLIOT [address] [facility] Department [place] [address] * (ABNORMAL) Manual Differential (09/20/2024 10:31 PM PAPIER MACHE' MOLDER) Differential Manual Comment:Testing performed by : [address] [address] Cells Counted 100 LELIOT Comment:Testing performed by : [address] [address] Neutrophil abs 5.7 1.5 - 6.5 K/cumm ELLIOT Comment:Testing performed by : [address] [address] Imm gran abs 0.0 0.0 - 0.1 K/cumm ELLIOT Comment:Testing performed by : [address] [address] Lymphocyte abs 4.9(H) 0.8 - 3.3 K/cumm ELLIOT Comment:Testing performed by : [address] [address] Monocyte abs 0.2 0.2 - 0.8 K/cumm ELLIOT Comment:Testing performed by : [address] [address] Eosinophil abs 0.3 0.0 - 0.5 K/cumm ELLIOT Comment:Testing performed by : [address] [address] Neutrophil pct 51.0 % ELLIOT Comment: Interpretive Data Percent cell count reference ranges are not reported, since discordance with absolute values may lead to misinterpretation of CBC data. Current Interpretive Data was last revised on 2018. Testing performed by: [address] [address] Lymphocyte pct 44.0 % ELLIOT Comment: Interpretive Data Percent cell count reference ranges are not reported, since discordance with absolute values may lead to misinterpretation of CBC data. Current Interpretive Data was last revised on 2018. Testing performed by: [address] [address] Monocyte pct 2.0 % ELLIOT Comment: Interpretive Data Percent cell count reference ranges are not reported, since discordance with absolute values may lead to misinterpretation of CBC data. Current Interpretive Data was last revised on 2018. Testing performed by: [address] [address] Eosinophil pct 3.0 % ELLIOT Comment: Interpretive Data Percent cell count reference ranges are not reported, since discordance with absolute values may lead to misinterpretation of CBC data. Current Interpretive Data was last revised on 2018. Testing performed by: [address] [address] Blood 09/20/2024 10:3 1 PM PAPIER MACHE' MOLDER 09/20/2024 10:34 PM PAPIER MACHE' MOLDER us Mohsen Orona DO LAB BLOOD ORDERABLES Final Res ult [facility] [address] [facility] Department [place] [address] * (ABNORMAL) CBC with auto differential (09/20/2024 10:31 PM PAPIER MACHE' MOLDER) WBC 11.1(H) 3.8 - 9.9 K/cumm Comment:Testing performed by : [address] [address] Hgb 19.9(H) 13.0 - 17.5 g/dL ELLIOT Comment:Testing performed by : [address] [address] Hct 35.0(L) 38.9 - 50.3 % ELLIOT Comment:Testing performed by : [address] [address] Plt 347 150 - 400 K/cumm ELLIOT Comment:Testing performed by : [address] [address] MPV 9.4 9.1 - 12.3 fL ELLIOT HINES Comment:Testing performed by : [address] [address] RBC 4.15(L) 4.30 - 5.80 M/cumm ELLIOT HINES Comment:Testing performed by : [address] [address] MCV 84.3 81.3 - 96.4 fL ELLIOT Comment:Testing performed by : [address] [address] MCH 48.0(H) 27.1 - 33.3 pg ELLIOT Comment:Testing performed by : [address] [address] MCHC 56.9(H) 32.3 - 35.7 g/dL ELLIOT HINES Comment:Testing performed by : [address], [address] RDW CV 13.3 11.1 - 14.9 % ELLIOT Comment:Testing performed by : [address] [address] RDW SD 40.9 35.7 - 48.1 fL ELLIOT Comment:Testing performed by : [address] [address] NRBC abs 0.00 0.00 - 0.01 K/cumm ELLIOT Comment:Testing performed by : [address] [address] Blood 09/20/2024 10:3 1 PM PAPIER MACHE' MOLDER 09/20/2024 10:34 PM PAPIER MACHE' MOLDER us Mohsen Orona DO LAB BLOOD ORDERABLES Final Res ult ELLIOT [address] [facility] Department [place] [address] * eGFR (09/20/2024 9:22 PM PAPIER MACHE' MOLDER) eGFR >90 >=60 mL/min/1. 73 m2 Comment: [...] was last reviewed 2021. Testing performed by: [address] [address] Blood 09/20/2024 9:22 PM PAPIER MACHE' MOLDER 09/20/2024 9:25 PM PAPIER MACHE' MOLDER us Chela GLASER LAB BLOOD ORDERABLES Final Resu lt ELLIOT [address] [facility] Department [place] [address] * (ABNORMAL) Basic metabolic panel (09/20/2024 9:22 PM PAPIER MACHE' MOLDER) Sodium 133(L) 135 - 145 mmol/L Comment:Testing performed by : [address] [address] Potassium, pl 4.1 3.3 - 4.9 mmol/L ELLIOT HINES Comment:Testing performed by : [address] [address] Chloride 99 97 - 110 mmol/L ELLIOT Comment:Testing performed by : [address] [address] CO2 16(L) 22 - 32 mmol/L ELLIOT Comment:Testing performed by : [address] [address] Anion gap 18(H) 2 - 15 mmol/L ELLIOT Comment:Testing performed by : [address] [address] BUN 14 6 - 25 mg/dL ELLIOT Comment:Testing performed by : [address] [address] Creatinine 0.60(L) 0.80 - 1.30 mg/dL ELLIOT Comment:Testing performed by : [address] [address] Glucose 227(H) 70 - 199 mg/dL ELLIOT [...] was last revised 2022. Testing performed by: [address] [address] Calcium 8.3(L) 8.5 - 10.3 mg/dL ELLIOT Comment:Testing performed by : [address] [address] Blood 09/20/2024 9:22 PM PAPIER MACHE' MOLDER 09/20/2024 9:25 PM PAPIER MACHE' MOLDER us Chela GLASER LAB BLOOD ORDERABLES Final Resu lt ELLIOT HINES [address] Department [place] [address] * (ABNORMAL) POCT glucose (09/20/2024 7:34 PM PAPIER MACHE' MOLDER) [facility] Glucose, POC 246(H) 70 - 199 mg/dL Comment:Testing performed by : [address] [address] Glucose comment 1 Use This Result ELLIOT HINES Comment:Testing performed by : [address] [address] Glucose comment 2 RN/MD Notified ELLIOT HINES Comment:Testing performed by : [address] [address] Blood 09/20/2024 7:34 PM PAPIER MACHE' MOLDER 09/20/2024 7:34 PM PAPIER MACHE' MOLDER us Notinfile Unknown LAB POCT ORDERABLES - DEVICE F inal Result ELLIOT HINES [address] [facility] Department [place] [address] * (ABNORMAL) POC Blood Gas and Chemistries, Venous - (09/20/2024 5:06 PM PAPIER MACHE' MOLDER) [facility] pH,carlton POC 7.36 7.32 - 7.43 Comment:Testing performed by : [address] [address] pCO2, carlton POC 36(L) 40 - 50 mmHg ELLIOT HINES Comment:Testing performed by : [address] [address] pO2,carlton POC 49 mmHg ELLIOT Comment: Interpretive Data No reference range established. Current interpretive data was last revised 2020. Testing performed by: [address] [address] HCO3, carlton (Calc) POC 20 20 - 30 mmol/L ELLIOT HINES Comment:Testing performed by : [address] [address] Base excess, carlton POC -4 mmol/L ELLIOT HINES Comment: Interpretive Data No reference range established. Current interpretive data was last revised 2020. Testing performed by: [facility], [address] [place] [address]., [address] Blood 09/20/2024 5:06 PM PAPIER MACHE' MOLDER 09/20/2024 5:06 PM PAPIER MACHE' MOLDER Notinfile Unknown LAB POCT ORDERABLES - DEVICE F inal Result Performing Organization Address [facility] Co de Phone Number [facility] [employer] [place] [address] * (ABNORMAL) POCT glucose (09/20/2024 4:57 PM PAPIER MACHE' MOLDER) [facility] Signature Glucose, POC 350(H) 70 - 199 mg/dL Comment:Testing performed by : [address] [address] Blood 09/20/2024 4:57 PM PAPIER MACHE' MOLDER 09/20/2024 4:57 PM PAPIER MACHE' MOLDER Notinfile Unknown LAB POCT ORDERABLES - DEVICE F inal Result Performing Organization Address [facility] de Phone Number ELLIOT [address] [place] [address] * CT Head WO Contrast (09/20/2024 4:34 PM PAPIER MACHE' MOLDER) Anatomical Region Laterality Modality Head and Neck N/A Computed Tomogra phy 09/20/2024 5:09 PM PAPIER MACHE' MOLDER Narrative 09/20/2024 5:12 PM PAPIER MACHE' MOLDER EXAM DESCRIPTION: CT HEAD WO CONTRAST REASON [...] PM T: ??09/20/2024 5:12 PM Report ID: [id number] Reading Location: ??[id number] Procedure Note Fareed Weaver MD - 09/20/2024 [...] Fareed Weaver M.D. AG: CORNELIO Report ID: [id number] Reading Location: [id number] Chela GLASER IMG CT PROCEDURES Final Result * Urinalysis, microscopic only (09/20/2024 2:37 PM PAPIER MACHE' MOLDER) WBC, ur 0-5 0 - 5 /HPF Comment:Testing performed by : [address] [address] RBC, ur 0-2 0 - 2 /HPF ELLIOT Comment:Testing performed by : [address] [address] Epithelial cells, squamous, ur 1-5 0 - 5 /HPF ELLIOT Comment:Testing performed by : [address] [address] Culture Reflex Comment Reflex conditions for urine culture (WBC >10) not met. ELLIOT Comment:Testing performed by : [address] [address] Urine 09/20/2024 2:37 PM PAPIER MACHE' MOLDER 09/20/2024 2:52 PM PAPIER MACHE' MOLDER Mohsen Orona DO LAB URINE ORDERABLES Final Res ult ELLIOT [address] [facility] Department [place] [address] * (ABNORMAL) Urinalysis reflex to microscopic and culture Urine (09/20/2024 2:37 PM PAPIER MACHE' MOLDER) Color, ur Straw Yellow Comment:Testing performed by : [address] [address] Clarity, ur Clear Clear ELLIOT Comment:Testing performed by : [address] [address] Specific gravity, ur 1.035(H) 1.003 - 1.030 ELLIOT Comment:Testing performed by : [address] [address] pH, urine 5.5 ELLIOT Comment: Interpretive Data ? Urine pH is affected by diet, medications, systemic acid-base disturbances, and renal tubular function. ??pH may affect urinary stone formation. ??For example, urine pH below 6.0 may help reduce the tendency for calcium phosphate stones and pH greater than 6.0 may reduce the tendency for uric acid stone formation. Source: [facility] [employer] Current Interpretive Data was last revised on 2017 Testing performed by: [facility], [address] [place] [address], [place]., [address] Protein, ur ql 1+(A) Negative ELLIOT Comment:Testing performed by : [facility], [address] [place] [address], [place]., [address] Glucose, ur ql 4+(A) Negative ELLIOT Comment:Testing performed by : [address], [place]., [address] Ketones, ur 1+(A) Negative ELLIOT Comment:Testing performed by : [address], [place]., [address] Bilirubin, ur Negative Negative ELLIOT Comment:Testing performed by : [address], [place]., [address] Blood, ur Negative Negative ELLIOT Comment:Testing performed by : [address], [place]., [address] Urobilinogen, ur <2.0 <2.0 mg/dL ELLIOT Comment:Testing performed by : [address], [place]., [address] Nitrite, ur Negative Negative ELLIOT Comment:Testing performed by : [address] [address] Leukocyte esterase, ur Negative Negative ELLIOT Comment:Testing performed by : [address], [place]., [address] UA reflex comment Reflex to microscopic UA will be performed. ELLIOT Comment:Testing performed by : [address], [place]., [address] Urine 09/20/2024 2:37 PM PAPIER MACHE' MOLDER 09/20/2024 2:52 PM PAPIER MACHE' MOLDER us Mohsen Orona DO LAB MICROBIOLOGY - GENERAL ORD ERABLES Final Result ELLIOT [address] [facility] Department [place] [address] * (ABNORMAL) Beta-hydroxybutyrate (09/20/2024 2:33 PM PAPIER MACHE' MOLDER) Pathologist [facility] Beta-Hydroxybut yrate 2.9(H) <=0.5 mmol/L Blood 09/20/2024 2:33 PM PAPIER MACHE' MOLDER 09/20/2024 6:47 PM PAPIER MACHE' MOLDER Mohsen Orona DO LAB BLOOD ORDERABLES Final Res ult ELLIOT [address] [facility] Department [place] [place] [address] * eGFR (09/20/2024 2:33 PM PAPIER MACHE' MOLDER) [facility] eGFR >90 >=60 mL/min/1. 73 m2 Comment: [...] was last reviewed 2021. Testing performed by: [address] [address] Blood 09/20/2024 2:33 PM PAPIER MACHE' MOLDER 09/20/2024 2:39 PM PAPIER MACHE' MOLDER us Mohsen Yeyo MCKEON LAB BLOOD ORDERABLES Final Res ult [facility] [address] [facility] Department [place] [address] * (ABNORMAL) Differential, auto (09/20/2024 2:33 PM PAPIER MACHE' MOLDER) Neutrophil abs 8.9(H) 1.5 - 6.5 K/cumm Comment:Testing performed by : [address] [address] Imm gran abs 0.1 0.0 - 0.1 K/cumm ELLIOT Comment:Testing performed by : [address] [address] Lymphocyte abs 2.7 0.8 - 3.3 K/cumm ELLIOT Comment:Testing performed by : [address] [address] Monocyte abs 1.0(H) 0.2 - 0.8 K/cumm ELLIOT Comment:Testing performed by : [address] [address] Eosinophil abs 0.3 0.0 - 0.5 K/cumm ELLIOT Comment:Testing performed by : [address] [address] Basophil abs 0.1 0.0 - 0.1 K/cumm ELLIOT Comment:Testing performed by : [address] [address] Neutrophil pct 67.6 % ELLIOT Comment: Interpretive Data Percent cell count reference ranges are not reported, since discordance with absolute values may lead to misinterpretation of CBC data. Current Interpretive Data was last revised on 2018. Testing performed by: [address] [address] Imm gran pct 1.1 % [facility] Comment: Interpretive Data Percent cell count reference ranges are not reported, since discordance with absolute values may lead to misinterpretation of CBC data. Current Interpretive Data was last revised on 2018. Testing performed by: [address] [address] Lymphocyte pct 20.5 % [facility] Comment: Interpretive Data Percent cell count reference ranges are not reported, since discordance with absolute values may lead to misinterpretation of CBC data. Current Interpretive Data was last revised on 2018. Testing performed by: [address] [address] Monocyte pct 7.7 % [facility] Comment: Interpretive Data Percent cell count reference ranges are not reported, since discordance with absolute values may lead to misinterpretation of CBC data. Current Interpretive Data was last revised on 2018. Testing performed by: [address] [address] Eosinophil pct 2.6 % [facility] Comment: Interpretive Data Percent cell count reference ranges are not reported, since discordance with absolute values may lead to misinterpretation of CBC data. Current Interpretive Data was last revised on 2018. Testing performed by: [address] [address] Basophil pct 0.5 % [facility] Comment: Interpretive Data Percent cell count reference ranges are not reported, since discordance with absolute values may lead to misinterpretation of CBC data. Current Interpretive Data was last revised on 2018. Testing performed by: [address] [address] Blood 09/20/2024 2:33 PM PAPIER MACHE' MOLDER 09/20/2024 2:39 PM PAPIER MACHE' MOLDER us Mohsen Orona DO LAB BLOOD ORDERABLES Final Res ult ELLIOT [facility]INES [address] [facility] Department of Laboratories [place], [place] [id number] * (ABNORMAL) CBC with auto differential (09/20/2024 2:33 PM PAPIER MACHE' MOLDER) WBC 13.1(H) 3.8 - 9.9 K/cumm Comment:Testing performed by : [address], [address] Hgb 20.7(C) 13.0 - 17.5 g/dL ELLIOT Comment: Critical result called to and read back by [email or web address] on 09 20 2024 at 1531 to Venita Liu. Testing performed by: [address], [address] Hct 36.2(L) 38.9 - 50.3 % ELLIOT Comment:Testing performed by : [address] [address] Plt 375 150 - 400 K/cumm ELLIOT Comment:Testing performed by : [address], [address] MPV 9.4 9.1 - 12.3 fL ELLIOT Comment:Testing performed by : [address], [address] RBC 4.35 4.30 - 5.80 M/cumm ELLIOT Comment:Testing performed by : [address], [address] MCV 83.2 81.3 - 96.4 fL ELLIOT Comment:Testing performed by : [address] [address] MCH 47.6(H) 27.1 - 33.3 pg CERDANA Comment:Testing performed by : [address], [address] MCHC 57.2(H) 32.3 - 35.7 g/dL ELLIOT Comment:Testing performed by : [address], [address] RDW CV 13.5 11.1 - 14.9 % ELLIOT Comment:Testing performed by : [address], [address] RDW SD 41.1 35.7 - 48.1 fL ELLIOT Comment:Testing performed by : [address], [address] NRBC abs 0.00 0.00 - 0.01 K/cumm ELLIOT Comment:Testing performed by : [address] [address] Blood 09/20/2024 2:33 PM PAPIER MACHE' MOLDER 09/20/2024 2:39 PM PAPIER MACHE' MOLDER us Mohsen Orona DO LAB BLOOD ORDERABLES Final Res ult ELLIOT [address] [facility] Department [place] [address] * (ABNORMAL) Comprehensive metabolic panel (09/20/2024 2:33 PM PAPIER MACHE' MOLDER) Sodium 126(L) 135 - 145 mmol/L Comment:Testing performed by : [address] [address] Potassium, pl 4.4 3.3 - 4.9 mmol/L ELLIOT Comment:Testing performed by : [address] [address] Chloride 88(L) 97 - 110 mmol/L ELLIOT Comment:Testing performed by : [address] [address] CO2 19(L) 22 - 32 mmol/L ELLIOT Comment:Testing performed by : [address] [address] Anion gap 19(H) 2 - 15 mmol/L ELLIOT Comment:Testing performed by : [address] [address] BUN 14 6 - 25 mg/dL ELLIOT Comment:Testing performed by : [address] [address] Creatinine 0.60(L) 0.80 - 1.30 mg/dL ELLIOT Comment:Testing performed by : [address] [address] Glucose 456(C) 70 - 199 mg/dL ELLIOT [...] was last revised 2022. Testing performed by: [address] [address] Calcium 9.4 8.5 - 10.3 mg/dL ELLIOT Comment:Testing performed by : [address] [address] Bilirubin, total 0.3 0.1 - 1.2 mg/dL [facility] Comment:Testing performed by : [address] [address] Protein, pl 6.6 6.5 - 8.5 g/dL [facility] Comment:Testing performed by : [address] [address] Albumin 3.9 3.5 - 5.0 g/dL [facility] Comment: Lipemic specimen Testing performed by: [address] [address] Alk phos 87 40 - 130 Units/L [facility] Comment:Testing performed by : [address] [address] ALT 5(L) 7 - 55 Units/L [facility] Comment: Lipemic specimen Testing performed by: [address] [address] AST 5(L) 10 - 50 Units/L [facility] Comment: HEMOLYZED: Hemolysis interferes with the above test. Lipemic specimen Testing performed by: [address] [address] Blood 09/20/2024 2:33 PM PAPIER MACHE' MOLDER 09/20/2024 2:39 PM PAPIER MACHE' MOLDER Narrative ELLIOT - 09/20/2024 3:58 PM PAPIER MACHE' MOLDER Critical result called to and read back by [email or web address] (_) on 09/20/2024 15:57:20 CST_ to [id number] us Mohsen Orona DO LAB BLOOD ORDERABLES Final Res ult Performing Organization Address [facility] Co de Phone Number ELLIOT [address] [facility] [employer] [place] [address] * (ABNORMAL) POCT glucose (09/20/2024 2:31 PM PAPIER MACHE' MOLDER) [facility] Signature Glucose, POC 461(C) 70 - 199 mg/dL Comment:Testing performed by : [address] [address] Glucose comment 1 RN/MD Notified ELLIOT Comment:Testing performed by : [address] [address] Glucose comment 2 Use This Result ELLIOT Comment:Testing performed by : [address] [address] Blood 09/20/2024 2:31 PM PAPIER MACHE' MOLDER 09/20/2024 2:31 PM PAPIER MACHE' MOLDER Notinfile Unknown LAB POCT ORDERABLES - DEVICE F inal Result Performing Organization Address [facility] Co de Phone Number ELLIOT [address] [place] [address] documented in this encounter Visit Diagnoses Diagnosis Migraine with status migrainosus, not intractable, unspecified migraine type- Primary Hypoglycemia Hypoglycemia, unspecified Abnormality, hemoglobin (HCC) Other hemoglobinopathies Dehydration documented in this encounter Administered Medications Inactive Administered Medications - up to 3 most recent administrations Medication Order MAR Action Action Date Dose Rate Site acetaminophen (TYLENOL) tablet 975 mg 975 mg (rounded from 1,000 mg), oral, Every 6 hours PRN, headaches, Starting on Liya 09/20/24 at 1431, For 2 doses, Do not administer if patient has taken greater than 3g of acetaminophen in the past 24 hours. Do not administer if patient has history of liver disease., Indications: PainIndications:Pain diphenhydrAMINE (BENADRYL) 50 mg/mL injection 25 mg 25 mg, intravenous, Administer over 2 Minutes, Once, On Liya 12/26/24 at 1720, For 1 dose Given 09/20/2024 5:37 PM PAPIER MACHE' MOLDER 25 mg ketorolac (TORADOL) 30 mg/mL injection 30 mg 30 mg, intravenous, Once, On Liya 09/20/24 at 1720, For 1 dose, For Adult IV push, administer over 15 seconds Given 09/20/2024 5:37 PM PAPIER MACHE' MOLDER 30 mg metoclopramide (REGLAN) 5 mg/mL injection 10 mg 10 mg, intravenous, Administer over 1 Minutes, Once, On Liya 09/20/24 at 1720, For 1 dose Given 09/20/2024 5:37 PM PAPIER MACHE' MOLDER 10 mg ondansetron ODT (ZOFRAN-ODT) disintegrating tablet 4 mg 4 mg, oral, Once as needed, nausea, vomiting, If able to tolerate PO., Starting on Liya 09/20/24 at 1431, For 1 dose, Do not administer if patient had 8mg administered within 6 hours of patient presenting to ED. Do not administer if patient was formally diagnosed with prolonged QT syndrome., Indications: Nausea and VomitingIndications:Nausea and Vomiting sodium chloride 0.9% bolus 1,000 mL 1,000 mL, intravenous, Once, On Liya 09/20/24 at 1610, For 1 dose New Bag 09/20/2024 5:02 PM PAPIER MACHE' MOLDER 1,000 mL sodium chloride 0.9% bolus 1,000 mL 1,000 mL, intravenous, Once, On Liya 09/20/24 at 1743, For 1 dose New Bag 09/20/2024 5:46 PM PAPIER MACHE' MOLDER 1,000 mL sodium chloride 0.9% bolus 1,000 mL 1,000 mL, intravenous, Once, On Liya 09/20/24 at 2138, For 1 dose New Bag 09/20/2024 10:25 PM PAPIER MACHE' MOLDER 1,000 mL documented in this encounter Active and Recently Administered Medications Times are shown in PAPIER MACHE' MOLDER. Scheduled Medication Order 09/19/2024 09/20/2024 09/21/2024 diphenhydrAMINE (BENADRYL) 50 mg/mL injection 25 mg (COMPLETED) 25 mg, intravenous, Administer over 2 Minutes, Once, On Liya 09/20/24 at 1720, For 1 dose 1737 (Given - Provider: Claudia Aguila RN) ketorolac (TORADOL) 30 mg/mL injection 30 mg (COMPLETED) 30 mg, intravenous, Once, On Liya 09/20/24 at 1720, For 1 dose, For Adult IV push, administer over 15 seconds 1737 (Given - Provider: Claudia Aguila, RN) metoclopramide (REGLAN) 5 mg/mL injection 10 mg (COMPLETED) 10 mg, intravenous, Administer over 1 Minutes, Once, On Liya 09/20/24 at 1720, For 1 dose 1737 (Given - Provider: Claudia Aguila, RN) sodium chloride 0.9% bolus 1,000 mL (COMPLETED) 1,000 mL, intravenous, Once, On Liya 09/20/24 at 1610, For 1 dose 1702 (New Bag - Provider: Claudia Aguila, YUDELKA)1702 (Stopped - Provider: Sofia Khan) sodium chloride 0.9% bolus 1,000 mL (COMPLETED) 1,000 mL, intravenous, Once, On Liya 09/20/24 at 1743, For 1 dose 1746 (New Bag - Provider: Claudia Aguila, YUDELKA)1746 (Stopped - Provider: Sofia Khan) sodium chloride 0.9% bolus 1,000 mL (COMPLETED) 1,000 mL, intravenous, Once, On Liya 09/20/24 at 2138, For 1 dose 2225 (New Bag - Provider: Sofia Khan)2359 (Stopped - Provider: Rona Borden, YUDELKA) PRN Medication Order 09/19/2024 09/20/2024 09/21/2024 acetaminophen (TYLENOL) tablet 975 mg 975 mg (rounded from 1,000 mg), oral, Every 6 hours PRN, headaches, Starting on Liya 09/20/24 at 1431, For 2 doses, Do not administer if patient has taken greater than 3g of acetaminophen in the past 24 hours. Do not administer if patient has history of liver disease., Indications: Pain ondansetron ODT (ZOFRAN-ODT) disintegrating tablet 4 mg 4 mg, oral, Once as needed, nausea, vomiting, If able to tolerate PO., Starting on Liya 09/20/24 at 1431, For 1 dose, Do not administer if patient had 8mg administered within 6 hours of patient presenting to ED. Do not administer if patient was formally diagnosed with prolonged QT syndrome., Indications: Nausea and Vomiting documented in this encounter Orders Medications Ordered That Enrrique ht Not Have Been Administered Count Last Ordered Date First Ordered Date acetaminophen (TYLENOL) tablet 975 mg 1 ondansetron ODT (ZOFRAN-ODT) disintegrating tablet 4 mg 1 09/20/2024 Lab Orders Without Results Count Last Ordered D ate First Ordered Date POCT GLUCOSE DEVICE 4 09/20/2024 Nursing Count Last Ordered Date First Orde red Date CHECK WITH MD 1 09/20/2024 MISCELLANEOUS NURSING CARE ORDER (SPECIFY) 3 09/20/2024 documented in this encounter Care Teams Line Construction Superintendent Relationship Specialty Start Date End Date Preston Moulton PA PCP - General Family Medicine 03/10/23 documented as of this encounter
--- OUTSIDE RECORDS SUMMARY | 2024-10-02 02:33 | XMS_ITS | Encounter Summary ---
Author Organization [facility] Healthcare Address [address] [place] [address] Care Team Providers Care Gas Producer Name Role Phone Sena Moulton Primary Care Provider [phone] Reason for Visit * Reason Comments Review Medications Excessive Sweating Encounter Details Date Type Department Care Team (Latest Contact Info) Description 03/20/2024 7:30 AM CDT Office Visit [facility] Primary Care [address] [place] [address] [address] [place] [address] Sena Moulton PA [address] [place] [address] Other headache syndrome (Primary Dx); Hypertriglyceridemia; Type 2 diabetes mellitus with hyperglycemia, without long-term current use of insulin (CMS/HCC) (HCC); Palpitations; Type 2 diabetes mellitus with hyperglycemia, with long-term current use of insulin (HCC); Mixed hyperlipidemia Social History Tobacco Use Types Packs/Day Years [...] How often do you attend chur or denominational services? More than 4 times per year 02/11/2023 Do you belong to any clubs o r organizations such as synagogue groups, unions, fraternal or athletic groups, or [...] place to sleep or slept in a skilled nursing (including now)? No 02/11/2023 Personal Safety Answer Date Recorded Have you ever been in or are you currently in a harmful physical or emotional relationship or is someone making you feel afraid or unsafe? 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 Gender Identity Male 11/18/2021 1:25 PM GOLD LEAF LABORER Sexual Orientation Straight 11/18/2021 1: 25 PM GOLD LEAF LABORER documented as of this encounter Last Filed Vital Signs Vital Sign Reading Time Taken Comments Blood Pressure 118/78 03/20/2024 7:24 AM CDT Pulse 91 03/20/2024 7:24 AM CDT Temperature 36 ??C (96.8 ??F) 03/20/2024 7:24 AM CDT Respiratory Rate 16 03/20/2024 7:24 AM CDT Oxygen Saturation 97% 03/20/2024 7:24 AM CDT Inhaled Oxygen Concentration - - Weight 74.4 kg (164 lb) 03/20/2024 7:24 AM CDT Height 172.7 cm (5' 7.99 ) 03/20/2024 7:24 AM CD T Body Mass Index 24.94 03/20/2024 7:24 AM CDT documented in this encounter Ordered Prescriptions Prescription Sig Dispense Quantity Refills Last Filled Start Date End Date rosuvastatin (CRESTOR) 20 mg tabletIndications:Hype rtriglyceridemia Take 1 tablet (20 mg total) by mouth nightly 90 tablet 3 03/20/2024 Jardiance 25 mg tablet Take 1 tablet (25 mg total) by mouth daily 03/20/2024 insulin lispro (HumaLOG, ADMELOG) 100 unit/mL vial for injectionIndications:T ype 2 diabetes mellitus with hyperglycemia, with long-term current use of insulin ([facility]) Inject 20 Units under the skin 3 (three) times a day before meals 03/20/2024 insulin glargine (LANTUS, SEMGLEE) 100 unit/mL vial for injectionIndications:T ype 2 diabetes mellitus with hyperglycemia, without long-term current use of insulin ([facility]) Inject 50 Units under the skin nightly 03/20/2024 fenofibrate nanocrystallized (TRICOR) 145 mg tabletIndications:Hype rtriglyceridemia Take 1 tablet (145 mg total) by mouth nightly 90 tablet 3 03/20/2024 documented in this encounter Progress Notes * Sena Moulton, ALFREDITO - 03/20/2024 7:30 AM CDT Images from the original note were not included. Subjective/Objective Patient ID: Chadwick Holcomb is a 43 y.o. male. Chief Complaint Review Medications and Excessive Sweating Patient is in for routine annual physical and follow-up for the following medical conditions Diagnoses and all orders for this visit: Other headache syndrome (Primary) Assessment & Plan: This is currently well controlled will continue to follow Hypertriglyceridemia Type 2 diabetes mellitus with hyperglycemia, without long-term current use of insulin (CMS/HCC) ([facility]) Palpitations Type 2 diabetes mellitus with hyperglycemia, with long-term current use of insulin ([facility]) Assessment & Plan: Mixed hyperlipidemia . Vitals: 03/20/24 0724 BP: 118/78 BP Location: Left arm Patient Position: Sitting Pulse: 91 Resp: 16 Temp: 36 ??C (96.8 ??F) TempSrc: Temporal SpO2: 97% Weight: 74.4 kg (164 lb) Height: 172.7 cm (5' 7.99 ) [...] currently well controlled will continue to follow Hypertriglyceridemia - fenofibrate nanocrystallized (TRICOR) 145 mg tablet; Take 1 tablet (145 mg total) by mouth nightly - rosuvastatin (CRESTOR) 20 mg tablet; Take 1 tablet (20 mg total) by mouth nightly Type 2 diabetes mellitus with hyperglycemia, without long-term current use of insulin (CMS/HCC) ([facility]) - insulin glargine (LANTUS, SEMGLEE) 100 unit/mL vial for injection; Inject 50 Units under the skinnightly Palpitations Assessment & Plan: He has a nearly non-existent will continue to follow Type 2 diabetes mellitus with hyperglycemia, with long-term current use of insulin ([facility]) Assessment & Plan: Patient is going to continue current medications, current labs were ordered, eye exam is up-to-date, foot care was discussed. Healthy diet and reference to [email or web address].com. Exercise as discussed, follow-up as scheduled routine. We did discuss proper monitoring of blood sugars Orders: - insulin lispro (HumaLOG, ADMELOG) 100 unit/mL vial for injection; Inject 20 Units under the skin 3 (three) times a day before meals - Hemoglobin A1c; Future Mixed hyperlipidemia Assessment & Plan: Patient is to continue present medications, work on diet and exercise as discussed, we did discuss the medications and potential side effects and signs and symptoms that would warrant calling office.Follow up routine. Other orders - Jardiance 25 mg tablet; Take 1 tablet (25 mg total) by mouth daily Orders Placed This Encounter Procedures Hemoglobin A1c Standing Status: Future Standing Expiration Date: 03/20/2025 The rational for all recommendations, as well as relative risks, are discussed with the patient in detail. The patient expresses understanding, comfort and agreement with the plan, all questions are answered. ALFREDITO Rivas documented in this encounter Miscellaneous Notes * Addendum Note - Sena Moulton PA - 03/20/2024 7:30 AM CDTAddended by: SENA MOULTON on: 03/20/2024 07:47 AM Modules accepted: Orders * Assessment & Plan Note - Sena Moulton PA - 03/19/2024 6:21 AM CDTAssociated Problem(s): Mixed hyperlipidemia Patient is to continue present medications, work on diet and exercise as discussed, we did discuss the medications and potential side effects and signs and symptoms that would warrant calling office.Follow up routine. * Assessment & Plan Note - Sena Moulton PA - 03/19/2024 6:21 AM CDTAssociated Problem(s): Type 2 diabetes mellitus with hyperglycemia, with long-term current use of insulin (HCC) Patient is going to continue current medications, current labs were ordered, eye exam is up-to-date, foot care was discussed. Healthy diet and reference to [email or web address].com. Exercise as discussed, follow-up as scheduled routine. We did discuss proper monitoring of blood sugars * Assessment & Plan Note - Sena Moulton PA - 03/19/2024 6:21 AM CDTAssociated Problem(s): Palpitations He has a nearly non-existent will continue to follow * Assessment & Plan Note - Sena Moulton PA - 03/19/2024 6:21 AM CDTAssociated Problem(s): Other headache syndrome This is currently well controlled will continue to follow documented in this encounter Plan of Treatment Not on file documented as of this encounter Results * Thyroid Function Price (03/20/2024 8:14 AM CDT) TSH 1.10 0.30 - 4.20 mcIUnit/mL Comment:Testing performed by : [facility], [address] [place] [address], [place]., [address] Blood 03/20/2024 8:14 AM CDT 03/20/2024 11:55 AM CDT Sena GLASER LAB BLOOD ORDERABLES Final Resu lt ELLIOT [address] [facility] Department [place] [address] * (ABNORMAL) Hemoglobin A1c (03/20/2024 8:14 AM CDT) Hgb A1C 7.7(H) 4.0 - 5.6 % Comment:Testing performed by : [facility], [address] [place] [address]., [id number] Estimated Average Glucose 174 mg/dL ELLIOT HINES Comment: The ADA recommends reporting an estimated Average Glucose (eAG) with all Hemoglobin A1c results using the equation derived from a study of 507 normal and diabetic adults. ??Minority populations were underrepresented and children were not included. ?? (Diabetes Care 31:6483-5436, 2008). ??The eAG is not equivalent to a fasting glucose. Testing performed by: [facility], [address] [place] [address]., [id number] Blood 03/20/2024 8:14 AM CDT 03/20/2024 10:17 AM CDT Sena GLASER LAB BLOOD ORDERABLES Final Resu lt ELLIOT [id number] [facility] [place] [address] documented in this encounter Visit Diagnoses Diagnosis Other headache syndrome- Primary Hypertriglyceridemia Pure hyperglyceridemia Type 2 diabetes mellitus with hyperglycemia, without long-term current use of insulin ([facility]) Palpitations Type 2 diabetes mellitus with hyperglycemia, with long-term current use of insulin ([facility]) Mixed hyperlipidemia documented in this encounter Discontinued Medications Medication Sig Discontinue Reason Start Date End Da te fenofibrate nanocrystallized (TRICOR) 145 mg tabletIndications:Hypertrig lyceridemia Take 1 tablet (145 mg total) by mouth daily Reorder 02/10/2023 03/19/2024 rosuvastatin (CRESTOR) 20 mg tabletIndications:Hypertrig lyceridemia Take 1 tablet (20 mg total) by mouth daily Reorder 02/10/2023 03/20/2024 insulin glargine (LANTUS, SEMGLEE) 100 unit/mL vial for injectionIndications:Type 2 diabetes mellitus with hyperglycemia, without long-term current use of insulin ([facility]) Inject 50 Units under the skin nightly Reorder 05/05/2023 03/19/2024 insulin lispro (HumaLOG, ADMELOG) 100 unit/mL vial for injection Inject 20 Units under the skin 3 (three) times a day before meals Reorder 03/19/2024 Jardiance 25 mg tablet Reorder 12/20/2023 documented as of this encounter Care Teams Gas Producer Relationship Specialty Start Date End Date Sena Moulton PA PCP - General Family Medicine 03/10/23 documented as of this encounter
--- OUTSIDE RECORDS SUMMARY | 2024-10-02 02:33 | XMS_ITS | Encounter Summary ---
Author Organization [facility] Health Address [address] [facility] [place] [address] Care Team Providers Care Flight Dispatcher Name Role Phone Unavailable Primary Care Provider Unavailabl e Encounter Details Date Type Department Care Team (Late st Contact Info) Description 09/29/2015 10:00 AM ACADEMIC COORDINATOR - 09/29/2015 11:59 PM ACADEMIC COORDINATOR Hospital Encounter [facility] [address] [place] [address] Susie Singer, [facility] [address] [place] [address] Discharge Disposition: Home or Self Care Social History Tobacco Use Types Packs/Day Years Used Date Smoking Tobacco: Never Assessed Sex and Gender Information Value Date Recorded Sex Assigned at Male 10/10/2021 1:14 AM ACADEMIC COORDINATOR Gender Identity Male 10/10/2021 1:14 AM ACADEMIC COORDINATOR Sexual Orientation Not on file documented as of this encounter Progress Notes * Kendy Kevin PTA - 09/29/2015 11:39 AM CST CHR for resp physical, drug collection, and pre-employment health physical/medical history review and OSHA questionnaire review. EMIC COORDINATOR documented in this encounter Plan of Treatment Not on file documented as of this encounter Visit Diagnoses Diagnosis Visit for occupational health examination- Primary Health examination of defined subpopulation documented in this encounter
--- OUTSIDE RECORDS SUMMARY | 2024-10-02 02:33 | XMS_ITS | Clinical Summary ---
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 300 each 02/09/20 Active blood-glucose meter kitIndications:Type 2 diabetes mellitus with hyperglycemia, without long-term current use of insulin (HCC) Use as directed to check blood glucose four times per day 1 kit 02/09/20 Active insulin syringe-needle U-100 1 mL 31 gauge x 5/16 syringe Use to inject 1-4 times daily as directed. 300 each 02/16/20 23 Active acetaminophen (TYLENOL) 325 mg tabletIndications:Fe sebastien,Pain [...] long-term current use of insulin ([facility]) Inject 50 Units under the skin nightly 03/20/20 24 025 Active insulin lispro (HumaLOG, ADMELOG) 100 unit/mL vial for injectionIndications :Type 2 diabetes mellitus with hyperglycemia, with long-term current use of insulin ([facility]) Inject 20 Units under the skin 3 (three) times a day before meals 03/20/20 24 Active Jardiance 25 mg tablet Take 1 tablet (25 mg total) by mouth daily 03/20/20 24 Active rosuvastatin (CRESTOR) 20 mg tabletIndications:Hy pertriglyceridemia Take 1 tablet (20 mg total) by mouth nightly 90 tablet 3 03/20/20 24 Active rizatriptan BLANKBOOK FORWARDER (MAXALT-BLANKBOOK FORWARDER) 10 mg disintegrating tabletIndications:Mi graine Take 1 [...] weeks Assessment & Plan (11/21/2023 4:41 PM HISTOLOGY TEACHER): This is poorly controlled we had a [...] last eye exam performance eye Care in [facility] [place] Monofilament foot exam completed. protective senses intact [...] 11/18/19 Assessment & Plan (11/18/2021 3:52 PM HISTOLOGY TEACHER): - augmentin, flonase, neti pot - f/u prn Palpitations 11/18/2021 Assessment & Plan (03/19/2024 6:21 AM CDT): He has a nearly non-existent will continue to follow Assessment & Plan (01/12/2024 6:29 AM CDT): He has a nearly non-existent will continue to follow Assessment & Plan (11/21/2023 4:40 PM HISTOLOGY TEACHER): He has a nearly non-existent will continue to follow Assessment & Plan (11/18/2021 3:49 PM HISTOLOGY TEACHER): - EKG today with sinus rhythm, rate 82, t wave inversion in V1, no EKG for comparison - ref to cardiology for possible event monitor and possible stress test. Vasovagal syncope 11/18/2021 Assessment & Plan (11/18/2021 3:32 PM HISTOLOGY TEACHER): - unclear etiology since events happened several [...] controlled Assessment & Plan (11/18/2021 3:51 PM HISTOLOGY TEACHER): - BP slightly high today - monitor for now, if high at next apt will start medication Other headache syndrome 10/09/2021 Assessment & Plan (03/19/2024 6:21 AM CDT): This is currently well controlled will continue to follow Assessment & Plan (01/12/2024 6:29 AM CDT): This is currently well controlled will continue to follow Assessment & Plan (11/21/2023 4:40 PM HISTOLOGY TEACHER): This is currently well controlled will continue to follow Assessment & Plan (11/18/2021 3:50 PM HISTOLOGY TEACHER): - tension headaches vs. Other etiology - normal MRI of brain - add magnesium and vit B2 - f/u in 2-3 mo if sx continue and will add topamax Assessment & Plan (10/09/2021 10:50 AM HISTOLOGY TEACHER): - uncontrolled, worsening - given worsening sx [...] routine. Assessment & Plan (11/21/2023 4:41 PM HISTOLOGY TEACHER): Patient is to continue present medications, work [...] stress Assessment & Plan (11/18/2021 3:51 PM HISTOLOGY TEACHER): - uncontrolled - pt not interested in meds at this time - f/u if sx worsen and will start on SSRI COVID-19 virus infection 10/09/2021 Assessment & Plan (10/09/2021 10:52 AM HISTOLOGY TEACHER): - no longer infectious but having uncontrolled sequela - prednisone taper, albuterol, tessalon pearls for cough - note to return to work written. Elevated glucose 03/05/2021 02/23/2023 05/05/2023 Acute pancreatitis Assessment & Plan (02/23/2023 3:23 PM CDT): Could be trigs, but gallbladder pancreatitis is possible, will re-check labs, he is not in pain, low fat diet may need GI consult Encounters Date Type Department Care Team Description 09/20/2024 8:36 PM HISTOLOGY TEACHER - 09/21/2024 12:15 AM HISTOLOGY TEACHER Emergency [facility] [address] [place] [address] [id number] Mohsen Orona, DO Migraine with status migrainosus, not intractable, unspecified migraine type (Primary Dx); Hypoglycemia; Abnormality, hemoglobin (HCC); Dehydration Discharge Disposition: Discharge to home or self care from Last 3 Months Immunizations Name Administration Dates Next Due DTP 02/08/1992, 2,06/29/1991,1990,04/07/1984 Hep B Vaccine 05/01/2012,08/23/2011,07/19/2011 Influenza, Unspecified 07/02/2023(Deferr ed: Patient decision),07/02/2023(Deferred: Patient decision),08/25/2022(Deferred: Patient decision),08/07/2022(Deferred: Patient decision),08/03/2022(Deferred: Patient decision),06/26/2022(Deferred: Patient Refused),11/18/2021(Deferred: Patient Refused) [employer]) SARS-CoV-2 Vaccination 02/14/2021 MMR 06/29/1991,04/27/1991 Measles / Rubella 04/07/1984 OPV 01/04/1992, 1,04/27/1991,1983 Td, Unspecified 09/06/2011 Surgical History Surgery Date Site/Laterality Comments CHOLECYSTECTOMY Medical History Medical History Date Comments Diabetes mellitus (HCC) Diabetic ketoacidosis withou t coma associated with other specified diabetes mellitus (HCC) 02/10/2023 Acute pancreatitis Vision changes 02/23/2023 Elevated glucose 03/05/2021 Abdominal pain 02/10/[address] of the abdomen 02/23/2023 Family History Medical History Relation Name Comments Hypertension Brother Steve Holcomb No Known Problems Father Cancer Mother Cynthia High Diabetes Mother Cynthia High Relation Name Status Comments Brother Steve Holcomb Alive Father (Age 51) Mother Cynthia High Alive Social History Tobacco Use Types Packs/Day Years [...] week 02/11/2023 How often do you attend [facility] or uatsdin services? More than 4 times per year 02/11/2023 Do you belong to any clubs o r organizations such as mormon groups, unions, fraternal or athletic groups, or [...] place to sleep or slept in a fpc (including now)? No 02/11/2023 Personal Safety Answer Date Recorded Have you ever been in or are you currently in a harmful physical or emotional relationship or is someone making you feel afraid or unsafe? Denies 09/20/2024 Sex and Gender Information Value Date Recorded Sex Assigned at Not on file Legal Sex Male 9:22 AM HISTOLOGY TEACHER Gender Identity Male 11/18/2021 1:25 PM HISTOLOGY TEACHER Sexual Orientation Straight 11/18/2021 1: 25 PM HISTOLOGY TEACHER Obstetrics History Last Filed Vital Signs Vital Sign Reading Time Taken Comments Blood Pressure 117/86 09/20/2024 11:00 PM HISTOLOGY TEACHER Pulse 92 09/20/2024 11:45 PM HISTOLOGY TEACHER Temperature 37 ??C (98.6 ??F) 09/20/2024 2:27 PM HISTOLOGY TEACHER Respiratory Rate 16 09/20/2024 10:00 PM HISTOLOGY TEACHER Oxygen Saturation 95% 09/20/2024 11:45 PM HISTOLOGY TEACHER Inhaled Oxygen Concentration - - Weight 68 kg (150 lb) 09/20/2024 2:27 PM HISTOLOGY TEACHER Height 172.7 cm (5' 8 ) 09/20/2024 2:27 PM HISTOLOGY TEACHER Body Mass Index 22.81 09/20/2024 2:27 PM HISTOLOGY TEACHER Plan of Treatment Health Maintenance Due Date Last Done Comments Colon Cancer Screening-Colonoscopy 1978 Hepatitis C Screening 1980 Foot Exam 1978 Pneumococcal vaccine <65 (1 of 2 - PCV) 1984 DTaP/Tdap/Td Vaccine (7 - Tdap) 09/06/2021 09/06/2011, 02/08/1992, 01/04/1992, Additional history exists Regular Well Visit/Exam 18-64 02/09/2024 02/08/2023 Covid-19 Vaccine (2 - season) 2024 02/14/2021 Influenza Vaccine (#1) 2024 Hemoglobin A1C 09/19/2024 03/20/2024, 04/2 11/2023, 11/21/2023, Additional history exists Dilated Eye Exam 02/24/2025 02/24/2023 Albumin Creatinine Ratio, Urine 03/20/2025 03/20/2024, 02/08/2023 Depression Screening 03/20/2025 03/20/2024, 02/08/2023, 10/09/2021 Lipid Panel 03/20/2025 03/20/2024, 03/26, 02/08/2023, Additional history exists eGFR 09/20/2025 09/20/2024, 08/27, 03/20/2024, Additional history exists HPV Vaccines Aged Out No longer eligi ble based on patient's age to complete this topic Procedures Procedure Name Priority Date/Time Associated Diagnosis Comments POCT GLUCOSE DEVICE Routine 09/20/2024 1 1:37 PM HISTOLOGY TEACHER POCT GLUCOSE DEVICE Routine 09/20/2024 1 0:34 PM HISTOLOGY TEACHER MANUAL DIFFERENTIAL STAT 09/20/2024 1 0:31 PM HISTOLOGY TEACHER CBC WITH AUTO DIFFERENTIAL STAT 09/20/2024 10:31 PM HISTOLOGY TEACHER EGFR STAT 09/20/2024 9:22 PM HISTOLOGY TEACHER BASIC METABOLIC PANEL STAT 09/20/2024 9:22 PM HISTOLOGY TEACHER POCT GLUCOSE DEVICE Routine 09/20/2024 7 :34 PM HISTOLOGY TEACHER POC BLOOD GAS AND CHEMISTRIES, VENOUS Routine 09/20/2024 5:06 PM HISTOLOGY TEACHER POCT GLUCOSE DEVICE Routine 09/20/2024 4 :[address] HEAD WO CONTRAST ED 09/20/2024 4 :34 PM HISTOLOGY TEACHER URINALYSIS, MICROSCOPIC ONLY STAT 09/20/2024 2:37 PM HISTOLOGY TEACHER URINALYSIS AND REFLEX TO MICROSCOPIC AND CULTURE STAT 09/20/2024 2:37 PM HISTOLOGY TEACHER BETA-HYDROXYBUTYRATE STAT 09/20/2024 2:33 PM HISTOLOGY TEACHER EGFR STAT 09/20/2024 2:33 PM HISTOLOGY TEACHER DIFFERENTIAL AUTO STAT 09/20/2024 2:3 3 PM HISTOLOGY TEACHER CBC WITH AUTO DIFFERENTIAL STAT 09/20/2024 2:33 PM HISTOLOGY TEACHER COMPREHENSIVE METABOLIC PANEL STAT 09/20/2024 2:33 PM HISTOLOGY TEACHER POCT GLUCOSE DEVICE Routine 09/20/2024 2 :31 PM HISTOLOGY TEACHER HEMOGLOBIN A1C Routine 03/20/2024 8:14 AM CDT Type 2 diabetes mellitus with hyperglycemia, with long-term current use of insulin (HCC) LIPID PANEL Routine 03/20/2024 8:14 AM CDT Type 2 diabetes mellitus with hyperglycemia, with long-term current use of insulin ([facility]) Mixed hyperlipidemia ALBUMIN CREATININE RATIO, URINE Routine 03/20/2024 8:08 AM CDT Type 2 diabetes mellitus with hyperglycemia, with long-term current use of insulin ([facility]) DIABETIC EYE EXAM Routine 02/24/2023 from Last 3 Months or Most Recently Relevant to Health Maintenance Results * POCT glucose (09/20/2024 11:37 PM HISTOLOGY TEACHER) [facility] Glucose, POC 189 70 - 199 mg/dL Comment:Testing performed by : [address] [address] Glucose comment 1 Use This Result ELLIOT HINES Comment:Testing performed by : [address] [address] Glucose comment 2 RN/MD Notified ELLIOT HINES Comment:Testing performed by : [address] [address] Blood 09/20/2024 11:3 7 PM HISTOLOGY TEACHER 09/20/2024 11:37 PM HISTOLOGY TEACHER us Mohsen Orona DO LAB POCT ORDERABLES - DEVICE F inal Result ELLIOT HINES [address] [facility] Department [place] [address] * (ABNORMAL) POCT glucose (09/20/2024 10:34 PM HISTOLOGY TEACHER) Pathologist [facility] Glucose, POC 231(H) 70 - 199 mg/dL Comment:Testing performed by : [address] [address] Glucose comment 1 Use This Result ELLIOT HINES Comment:Testing performed by : [address] [address] Blood 09/20/2024 10:3 4 PM HISTOLOGY TEACHER 09/20/2024 10:34 PM HISTOLOGY TEACHER us Mohsen Orona DO LAB POCT ORDERABLES - DEVICE F inal Result ELLIOT HINES [facility] Department [place] [address] * (ABNORMAL) CBC with auto differential (09/20/2024 10:31 PM HISTOLOGY TEACHER) [facility] WBC 11.1(H) 3.8 - 9.9 K/cumm Comment:Testing performed by : [address] [address] Hgb 19.9(H) 13.0 - 17.5 g/dL ELLIOT HINES Comment:Testing performed by : [address] [address] Hct 35.0(L) 38.9 - 50.3 % ELLIOT Comment:Testing performed by : [address] [address] Plt 347 150 - 400 K/cumm ELLIOT Comment:Testing performed by : [address] [address] MPV 9.4 9.1 - 12.3 fL ELLIOT HINES Comment:Testing performed by : [address] [address] RBC 4.15(L) 4.30 - 5.80 M/cumm ELLIOT HINES Comment:Testing performed by : [address] [address] MCV 84.3 81.3 - 96.4 fL ELLIOT HINES Comment:Testing performed by : [address] [address] MCH 48.0(H) 27.1 - 33.3 pg ELLIOT HINES Comment:Testing performed by : [address] [address] MCHC 56.9(H) 32.3 - 35.7 g/dL ELLIOT HINES Comment:Testing performed by : [address] [address] RDW CV 13.3 11.1 - 14.9 % ELLIOT HINES Comment:Testing performed by : [address] [address] RDW SD 40.9 35.7 - 48.1 fL ELLIOT HINES Comment:Testing performed by : [address] [address] NRBC abs 0.00 0.00 - 0.01 K/cumm ELLIOT Comment:Testing performed by : [address] [address] Blood 09/20/2024 10:3 1 PM HISTOLOGY TEACHER 09/20/2024 10:34 PM HISTOLOGY TEACHER us Mohsen Orona DO LAB BLOOD ORDERABLES Final Res ult ELLIOT [address] [facility] Department of Laboratories [place], [place] [id number] * (ABNORMAL) Manual Differential (09/20/2024 10:31 PM HISTOLOGY TEACHER) Differential Manual Comment:Testing performed by : [address] [address] Cells Counted 100 ELLIOT HINES Comment:Testing performed by : [address] [address] Neutrophil abs 5.7 1.5 - 6.5 K/cumm ELLIOT HINES Comment:Testing performed by : [address] [address] Imm gran abs 0.0 0.0 - 0.1 K/cumm ELLIOT HINES Comment:Testing performed by : [address] [address] Lymphocyte abs 4.9(H) 0.8 - 3.3 K/cumm [facility] Comment:Testing performed by : [address] [address] Monocyte abs 0.2 0.2 - 0.8 K/cumm [facility] Comment:Testing performed by : [address] [address] Eosinophil abs 0.3 0.0 - 0.5 K/cumm [facility] Comment:Testing performed by : [address] [address] Neutrophil pct 51.0 % [facility] Comment: Interpretive Data Percent cell count reference ranges are not reported, since discordance with absolute values may lead to misinterpretation of CBC data. Current Interpretive Data was last revised on 2018. Testing performed by: [address] [address] Lymphocyte pct 44.0 % [facility] Comment: Interpretive Data Percent cell count reference ranges are not reported, since discordance with absolute values may lead to misinterpretation of CBC data. Current Interpretive Data was last revised on 2018. Testing performed by: [address] [address] Monocyte pct 2.0 % [facility] Comment: Interpretive Data Percent cell count reference ranges are not reported, since discordance with absolute values may lead to misinterpretation of CBC data. Current Interpretive Data was last revised on 2018. Testing performed by: [address] [address] Eosinophil pct 3.0 % [facility] Comment: Interpretive Data Percent cell count reference ranges are not reported, since discordance with absolute values may lead to misinterpretation of CBC data. Current Interpretive Data was last revised on 2018. Testing performed by: [address] [address] Blood 09/20/2024 10:3 1 PM HISTOLOGY TEACHER 09/20/2024 10:34 PM HISTOLOGY TEACHER us Mohsen Slowik DO LAB BLOOD ORDERABLES Final Res ult ELLIOT [address] [facility] Department [place] [address] * eGFR (09/20/2024 9:22 PM HISTOLOGY TEACHER) eGFR >90 >=60 mL/min/1. 73 m2 Comment: [...] of Race in Diagnosing Kidney Disease, JASN 202). The CKD-EPI equation should not be used for patients with unstable renal function and has not been validated in children and those over 70. Current interpretive data was last reviewed 2021. Testing performed by: [facility], [address] [place] [address]., [address] Blood 09/20/2024 9:22 PM HISTOLOGY TEACHER 09/20/2024 9:25 PM HISTOLOGY TEACHER us Chela GLASER LAB BLOOD ORDERABLES Final Resu lt ELLIOT [address] [facility] Department [place] [address] * (ABNORMAL) Basic metabolic panel (09/20/2024 9:22 PM HISTOLOGY TEACHER) Sodium 133(L) 135 - 145 mmol/L Comment:Testing performed by : [address] [address] Potassium, pl 4.1 3.3 - 4.9 mmol/L ELLIOT Comment:Testing performed by : [address] [address] Chloride 99 97 - 110 mmol/L ELLIOT Comment:Testing performed by : [address], [place]., [address] CO2 16(L) 22 - 32 mmol/L ELLIOT Comment:Testing performed by : [address] [address] Anion gap 18(H) 2 - 15 mmol/L ELLIOT Comment:Testing performed by : [address] [address] BUN 14 6 - 25 mg/dL [facility] Comment:Testing performed by : [address] [address] Creatinine 0.60(L) 0.80 - 1.30 mg/dL [facility] Comment:Testing performed by : [address] [address] Glucose 227(H) 70 - 199 mg/dL [facility] Comment: Delta - Results Reviewed Interpretive Data [...] classification and Diagnosis of Diabetes Diabetes Care 202; 46: S19-S40. Current interpretive data was last revised 2022. Testing performed by: [address], [place]., [address] Calcium 8.3(L) 8.5 - 10.3 mg/dL ELLIOT Comment:Testing performed by : [address] [address] Blood 09/20/2024 9:22 PM HISTOLOGY TEACHER 09/20/2024 9:25 PM HISTOLOGY TEACHER Chela GLASER LAB BLOOD ORDERABLES Final Resu lt Performing Organization Address [facility] de Phone Number ELLIOT [address] [address] * (ABNORMAL) POCT glucose (09/20/2024 7:34 PM HISTOLOGY TEACHER) Glucose, POC 246(H) 70 - 199 mg/dL Comment:Testing performed by : [address] [address] Glucose comment 1 Use This Result ELLIOT HINES Comment:Testing performed by : [address] [address] Glucose comment 2 RN/MD Notified ELLIOT HINES Comment:Testing performed by : [address] [address] Blood 09/20/2024 7:34 PM HISTOLOGY TEACHER 09/20/2024 7:34 PM HISTOLOGY TEACHER Notinfile Unknown LAB POCT ORDERABLES - DEVICE F inal Result Performing Organization Address [facility] de Phone Number ELLIOT [address] [address] * (ABNORMAL) POC Blood Gas and Chemistries, Venous - (09/20/2024 5:06 PM HISTOLOGY TEACHER) pH,carlton POC 7.36 7.32 - 7.43 Comment:Testing performed by : [address] [address] pCO2, carlton POC 36(L) 40 - 50 mmHg ELLIOT HINES Comment:Testing performed by : [address] [address] pO2,carlton POC 49 mmHg ELLIOT HINES Comment: Interpretive Data No reference range established. Current interpretive data was last revised 2020. Testing performed by: [address] [address] HCO3, carlton (Calc) POC 20 20 - 30 mmol/L ELLIOT Comment:Testing performed by : [address] [address] Base excess, carlton POC -4 mmol/L ELLIOT Comment: Interpretive Data No reference range established. Current interpretive data was last revised 2020. Testing performed by: [address] [address] Blood 09/20/2024 5:06 PM HISTOLOGY TEACHER 09/20/2024 5:06 PM HISTOLOGY TEACHER us Notinfile Unknown LAB POCT ORDERABLES - DEVICE F inal Result Performing Organization Address [facility] Co de Phone Number [place] [phone] [facility] [address] * (ABNORMAL) POCT glucose (09/20/2024 4:57 PM HISTOLOGY TEACHER) [facility] Signature Glucose, POC 350(H) 70 - 199 mg/dL Comment:Testing performed by : [address] [address] Blood 09/20/2024 4:57 PM HISTOLOGY TEACHER 09/20/2024 4:57 PM HISTOLOGY TEACHER us Notinfile Unknown LAB POCT ORDERABLES - DEVICE F inal Result Performing Organization Address [facility] Co de Phone Number [place] [phone] [facility] [place] [address] * CT Head WO Contrast (09/20/2024 4:34 PM HISTOLOGY TEACHER) Anatomical Region Laterality Modality Head and Neck N/A Computed Tomogra phy 09/20/2024 5:09 PM HISTOLOGY TEACHER Narrative 09/20/2024 5:12 PM HISTOLOGY TEACHER EXAM DESCRIPTION: CT HEAD WO CONTRAST REASON [...] Electronically signed by ??Fareed Weaver M.D. AG: AG D: ??09/20/2024 5:12 PM T: ??09/20/2024 5:12 PM Report ID: [id number] Reading Location: ??[id number] Procedure Note Fareed Weaver MD - 09/20/2024 [...] Fareed Weaver M.D. AG: CORNELIO Report ID: [id number] Reading Location: [id number] Chela GLASER IMBrandon CT PROCEDURES Final Result * (ABNORMAL) Urinalysis reflex to microscopic and culture Urine (09/20/2024 2:37 PM HISTOLOGY TEACHER) Color, ur Straw Yellow Comment:Testing performed by : [address] [address] Clarity, ur Clear Clear ELLIOT Comment:Testing performed by : [address] [address] Specific gravity, ur 1.035(H) 1.003 - 1.030 ELLIOT Comment:Testing performed by : [address] [address] pH, urine 5.5 ELLIOT Comment: Interpretive Data ? Urine pH is affected by diet, medications, systemic acid-base disturbances, and renal tubular function. ??pH may affect urinary stone formation. ??For example, urine pH below 6.0 may help reduce the tendency for calcium phosphate stones and pH greater than 6.0 may reduce the tendency for uric acid stone formation. Source: [employer] Current Interpretive Data was last revised on 2017 Testing performed by: [address] [address] Protein, ur ql 1+(A) Negative ELLIOT Comment:Testing performed by : [address] [address] Glucose, ur ql 4+(A) Negative ELLIOT Comment:Testing performed by : [address] [address] Ketones, ur 1+(A) Negative ELLIOT HINES Comment:Testing performed by : [facility], [address] [place] [address], [place]., [address] Bilirubin, ur Negative Negative ELLIOT HINES Comment:Testing performed by : [address], [place]., [address] Blood, ur Negative Negative ELLIOT Comment:Testing performed by : [address], [place]., [address] Urobilinogen, ur <2.0 <2.0 mg/dL ELLIOT HINES Comment:Testing performed by : [address], [place]., [address] Nitrite, ur Negative Negative ELLIOT Comment:Testing performed by : [address], [place]., [address] Leukocyte esterase, ur Negative Negative ELLIOT Comment:Testing performed by : [address], [place]., [address] UA reflex comment Reflex to microscopic UA will be performed. ELLIOT Comment:Testing performed by : [address], [place]., [address] Urine 09/20/2024 2:37 PM HISTOLOGY TEACHER 09/20/2024 2:52 PM HISTOLOGY TEACHER Mohsen Orona DO LAB MICROBIOLOGY - GENERAL ORD ERABLES Final Result ELLIOT [address] [facility] Department [place] [address] * Urinalysis, microscopic only (09/20/2024 2:37 PM HISTOLOGY TEACHER) WBC, ur 0-5 0 - 5 /HPF Comment:Testing performed by : [address], [place]., [address] RBC, ur 0-2 0 - 2 /HPF ELLIOT HINES Comment:Testing performed by : [address], [place]., [address] Epithelial cells, squamous, ur 1-5 0 - 5 /HPF ELLIOT HINES Comment:Testing performed by : [address], [place]., [address] Culture Reflex Comment Reflex conditions for urine culture (WBC >10) not met. ELLIOT HINES Comment:Testing performed by : [facility], [address] [place] [address]., [address] Urine 09/20/2024 2:37 PM HISTOLOGY TEACHER 09/20/2024 2:52 PM HISTOLOGY TEACHER us Mohsen Orona DO LAB URINE ORDERABLES Final Res ult ELLIOT [address] [facility] Department [place] [address] * eGFR (09/20/2024 2:33 PM HISTOLOGY TEACHER) eGFR >90 >=60 mL/min/1. 73 m2 Comment: [...] was last reviewed 2021. Testing performed by: [facility], [address] [place] [address]., [address] Blood 09/20/2024 2:33 PM HISTOLOGY TEACHER 09/20/2024 2:39 PM HISTOLOGY TEACHER us Mohsen Meghangema DO LAB BLOOD ORDERABLES Final Res ult ELLIOT [address] [facility] Department [place] [address] * (ABNORMAL) Differential, auto (09/20/2024 2:33 PM HISTOLOGY TEACHER) Neutrophil abs 8.9(H) 1.5 - 6.5 K/cumm Comment:Testing performed by : [address] [address] Imm gran abs 0.1 0.0 - 0.1 K/cumm ELLIOT Comment:Testing performed by : [address] [address] Lymphocyte abs 2.7 0.8 - 3.3 K/cumm ELLIOT Comment:Testing performed by : [address] [address] Monocyte abs 1.0(H) 0.2 - 0.8 K/cumm ELLIOT Comment:Testing performed by : [address] [address] Eosinophil abs 0.3 0.0 - 0.5 K/cumm ELLIOT Comment:Testing performed by : [address] [address] Basophil abs 0.1 0.0 - 0.1 K/cumm ELLIOT Comment:Testing performed by : [address] [address] Neutrophil pct 67.6 % ELLIOT Comment: Interpretive Data Percent cell count reference ranges are not reported, since discordance with absolute values may lead to misinterpretation of CBC data. Current Interpretive Data was last revised on 2018. Testing performed by: [address] [address] Imm gran pct 1.1 % ELLIOT Comment: Interpretive Data Percent cell count reference ranges are not reported, since discordance with absolute values may lead to misinterpretation of CBC data. Current Interpretive Data was last revised on 2018. Testing performed by: [address] [address] Lymphocyte pct 20.5 % [facility] Comment: Interpretive Data Percent cell count reference ranges are not reported, since discordance with absolute values may lead to misinterpretation of CBC data. Current Interpretive Data was last revised on 2018. Testing performed by: [address] [address] Monocyte pct 7.7 % [facility] Comment: Interpretive Data Percent cell count reference ranges are not reported, since discordance with absolute values may lead to misinterpretation of CBC data. Current Interpretive Data was last revised on 2018. Testing performed by: [address] [address] Eosinophil pct 2.6 % [facility] Comment: Interpretive Data Percent cell count reference ranges are not reported, since discordance with absolute values may lead to misinterpretation of CBC data. Current Interpretive Data was last revised on 2018. Testing performed by: [address] [address] Basophil pct 0.5 % [facility] Comment: Interpretive Data Percent cell count reference ranges are not reported, since discordance with absolute values may lead to misinterpretation of CBC data. Current Interpretive Data was last revised on 2018. Testing performed by: [address] [address] Blood 09/20/2024 2:33 PM HISTOLOGY TEACHER 09/20/2024 2:39 PM HISTOLOGY TEACHER Mohsen Orona DO LAB BLOOD ORDERABLES Final Res ult ELLIOT [address] [facility] Department [place] [address] * (ABNORMAL) Beta-hydroxybutyrate (09/20/2024 2:33 PM HISTOLOGY TEACHER) Beta-Hydroxybut yrate 2.9(H) <=0.5 mmol/L Blood 09/20/2024 2:33 PM HISTOLOGY TEACHER 09/20/2024 6:47 PM HISTOLOGY TEACHER us Mohsen Yeyo DO LAB BLOOD ORDERABLES Final Res ult ELLIOT [address] [facility] Department [place] [address] * (ABNORMAL) CBC with auto differential (09/20/2024 2:33 PM HISTOLOGY TEACHER) WBC 13.1(H) 3.8 - 9.9 K/cumm Comment:Testing performed by : [address] [address] Hgb 20.7(C) 13.0 - 17.5 g/dL ELLIOT HINES Comment: Critical result called to and read back by [id number] on 09 20 2024 at 1531 to Venita Liu. Testing performed by: [address] [address] Hct 36.2(L) 38.9 - 50.3 % ELLIOT Comment:Testing performed by : [address] [address] Plt 375 150 - 400 K/cumm ELLIOT Comment:Testing performed by : [address] [address] MPV 9.4 9.1 - 12.3 fL ELLIOT HINES Comment:Testing performed by : [address] [address] RBC 4.35 4.30 - 5.80 M/cumm ELLIOT HINES Comment:Testing performed by : [address] [address] MCV 83.2 81.3 - 96.4 fL ELLIOT HINES Comment:Testing performed by : [address] [address] MCH 47.6(H) 27.1 - 33.3 pg ELLIOT HINES Comment:Testing performed by : [address] [address] MCHC 57.2(H) 32.3 - 35.7 g/dL ELLIOT HINES Comment:Testing performed by : [address] [address] RDW CV 13.5 11.1 - 14.9 % ELLIOT HINES Comment:Testing performed by : [address] [address] RDW SD 41.1 35.7 - 48.1 fL ELLIOT HINES Comment:Testing performed by : [address] [address] NRBC abs 0.00 0.00 - 0.01 K/cumm ELLIOT HINES Comment:Testing performed by : [address] [address] Blood 09/20/2024 2:33 PM HISTOLOGY TEACHER 09/20/2024 2:39 PM HISTOLOGY TEACHER us Mohsen Orona DO LAB BLOOD ORDERABLES Final Res ult ELLIOT HINES [address] [facility] Department [place] [address] * (ABNORMAL) Comprehensive metabolic panel (09/20/2024 2:33 PM HISTOLOGY TEACHER) Sodium 126(L) 135 - 145 mmol/L Comment:Testing performed by : [address] [address] Potassium, pl 4.4 3.3 - 4.9 mmol/L ELLIOT HINES Comment:Testing performed by : [address] [address] Chloride 88(L) 97 - 110 mmol/L ELLIOT HINES Comment:Testing performed by : [address] [address] CO2 19(L) 22 - 32 mmol/L ELLIOT HINES Comment:Testing performed by : [address] [address] Anion gap 19(H) 2 - 15 mmol/L ELLIOT HINES Comment:Testing performed by : [address] [address] BUN 14 6 - 25 mg/dL ELLIOT HINES Comment:Testing performed by : [address] [address] Creatinine 0.60(L) 0.80 - 1.30 mg/dL [facility] Comment:Testing performed by : [address] [address] Glucose 456(C) 70 - 199 mg/dL [facility] Comment: Interpretive Data Fasting glucose >/= 126 [...] was last revised 2022. Testing performed by: [address] [address] Calcium 9.4 8.5 - 10.3 mg/dL [facility] Comment:Testing performed by : [address] [address] Bilirubin, total 0.3 0.1 - 1.2 mg/dL [facility] Comment:Testing performed by : [address] [address] Protein, pl 6.6 6.5 - 8.5 g/dL [facility] Comment:Testing performed by : [address] [address] Albumin 3.9 3.5 - 5.0 g/dL [facility] Comment: Lipemic specimen Testing performed by: [address] [address] Alk phos 87 40 - 130 Units/L [facility] Comment:Testing performed by : [address] [address] ALT 5(L) 7 - 55 Units/L [facility] Comment: Lipemic specimen Testing performed by: [address] [address] AST 5(L) 10 - 50 Units/L [facility] Comment: HEMOLYZED: Hemolysis interferes with the above test. Lipemic specimen Testing performed by: [address] [address] Blood 09/20/2024 2:33 PM HISTOLOGY TEACHER 09/20/2024 2:39 PM HISTOLOGY TEACHER Narrative ELLIOT HINES - 09/20/2024 3:58 PM HISTOLOGY TEACHER Critical result called to and read back by [email or web address] (_) on 09/20/2024 15:57:20 CST_ to [id number] us Mohsen Orona DO LAB BLOOD ORDERABLES Final Res ult Performing Organization Address [facility] Co de Phone Number [address] [employer] [place], [place] [id number] * (ABNORMAL) POCT glucose (09/20/2024 2:31 PM HISTOLOGY TEACHER) Pathologist [facility] Glucose, POC 461(C) 70 - 199 mg/dL Comment:Testing performed by : [address] [address] Glucose comment 1 RN/MD Notified ELLIOT Comment:Testing performed by : [address] [address] Glucose comment 2 Use This Result ELLIOT Comment:Testing performed by : [address] [address] Blood 09/20/2024 2:31 PM HISTOLOGY TEACHER 09/20/2024 2:31 PM HISTOLOGY TEACHER Notinfile Unknown LAB POCT ORDERABLES - DEVICE F inal Result Performing Organization Address [facility] Co de Phone Number [address] [employer] [place], [place] [id number] * (ABNORMAL) Hemoglobin A1c (03/20/2024 8:14 AM CDT) [facility] Hgb A1C 7.7(H) 4.0 - 5.6 % Comment:Testing performed by : [address] [address] Estimated Average Glucose 174 mg/dL ELLIOT HINES Comment: The ADA recommends reporting an estimated Average Glucose (eAG) with all Hemoglobin A1c results using the equation derived from a study of 507 normal and diabetic adults. ??Minority populations were underrepresented and children were not included. ?? (Diabetes Care 31:1928-1851, 2008). ??The eAG is not equivalent to a fasting glucose. Testing performed by: [facility], [address] [place] [address]., [address] Blood 03/20/2024 8:14 AM CDT 03/20/2024 10:17 AM CDT us Preston GLASER LAB BLOOD ORDERABLES Final Resu lt ELLIOT HINES [address] [facility] Department [place] [address] * (ABNORMAL) Lipid panel (03/20/2024 8:14 AM CDT) [facility] Cholesterol 300(H) 30 - 199 mg/dL Comment: [...] last revised on 2018. Testing performed by: [address] [address] Triglycerides 2,236(H) <=149 mg/dL ELLIOT HINES Comment: [...] last revised on 2018. Testing performed by: [address] [address] HDL 18(L) >=40 mg/dL ELLIOT HINES Comment: [...] last revised on 2018. Testing performed by: [address] [address] LDL, calculated See Comment <=129 mg/dL ELLIOT [...] last revised on 2018. Testing performed by: [address] [address] Non-HDL Cholesterol 282 mg/dL ELLIOT HINES Comment: [...] last revised on 2018. Testing performed by: [address] [address] Chol/HDL ratio 17 ELLIOT Comment:Testing performed by : [address] [address] Blood 03/20/2024 8:14 AM CDT 03/20/2024 11:55 AM CDT us Preston GLASER LAB BLOOD ORDERABLES Final Resu lt ELLIOT [address] [facility] Department [place] [address] * (ABNORMAL) Albumin Creatinine Ratio, Urine (03/20/2024 8:08 AM CDT) Albumin Ur 266.8 mg/L Comment: Interpretive Data No reference range established. Current interpretive data was last revised 2019. Testing performed by: [address] [address] Creatinine Ur 54.6 mg/dL ELLIOT Comment: Interpretive Data No reference range established. Current interpretive data was last revised 2019. Testing performed by: [address] [address] Albumin Creatinine Ratio, Ur 489(H) 1 - 29 mg/g ELLIOT Comment:Testing performed by : [address] [address] Urine 03/20/2024 8:08 AM CDT 03/20/2024 10:15 AM CDT Preston GLASER LAB URINE ORDERABLES Final Resu lt ELLIOT [address] [facility] Department [place] [address] * Diabetic Eye Exam (02/24/2023) Historical Provider HEALTH MAINTENANCE Final Result from Last 3 Months or Most Recently Relevant to Health Maintenance Insurance [facility] SHYLA PREFERRED [facility] ANTHEM PREFERRED ANTHEM PREFERRED Member Subscriber Plan / Payer (Ef fective 2022-) Name:Chadwick Holcomb Relation to Subscriber:Self Name:Chadwick Holcomb Payer ID:[id number] (NAIC) Type:[employer] Address: [address] [place] [id number] [facility] Advance Directives For more information, please contact: [phone] * Full Code (Latest Code Status on File) Date Activated Date Inactivated Comments 10/21/2023 10:59 AM 10/22/2023 6:08 PM * Full Code Date Activated Date Inactivated Comments 02/10/2023 8:16 PM 02/15/2023 5:15 PM Care Teams Cutting And Creasing Press Operator Relationship Specialty Start Date End Date Preston Moulton PA PCP - General Family Medicine 03/10/23
--- OUTSIDE RECORDS SUMMARY | 2024-10-02 02:33 | XMS_ITS | Encounter Summary ---
Author Organization [facility] Healthcare Address [address] [place] [address] Care Team Providers Care Marinator Name Role Phone Preston Moulton Primary Care Provider [phone] Encounter Details Date Type Department Care Team (Late st Contact Info) Description 12/05/2023 Orders Only [facility] Medical Group Primary Care [address] [facility] [address] [place] [address] Preston Moulton PA [address] [place] [address] Social History Tobacco Use Types [...] often do you attend chur ch or orthodox services? More than 4 times per year 02/11/2023 Do you belong to any clubs o r organizations such as roman catholic groups, unions, fraternal or athletic groups, [...] place to sleep or slept in a detention (including now)? No 02/11/2023 Personal Safety Answer Date Recorded Have you ever been in or are you currently in a harmful physical or emotional relationship or is someone making you feel afraid or unsafe? Denies 10/21/2023 Sex and Gender Information Value Date Recorded Sex Assigned at Not on file Legal Sex Male 9:22 AM SEARCH ADVERTISING STRATEGIST Gender Identity Male 11/18/2021 1:25 PM SEARCH ADVERTISING STRATEGIST Sexual Orientation Straight 11/18/2021 1: 25 PM SEARCH ADVERTISING STRATEGIST documented as of this encounter Ordered Prescriptions Prescription Sig Dispense Quantity Refills Last Filled Start Date End Date metFORMIN (GLUCOPHAGE) 500 mg tablet Take 2 tablets (1,000 mg total) by mouth 2 (two) times a day with meals 360 tablet 3 12/05/2023 documented in this encounter Plan of Treatment Not on file documented as of this encounter Visit Diagnoses Not on filedocumented in this encounter Discontinued Medications Medication Sig Discontinue Reason Start Date End Da te metFORMIN (GLUCOPHAGE) 500 mg tablet Take 2 tablets (1,000 mg total) by mouth 2 (two) times a day with meals Reorder 11/22/2023 12/05/2023 documented as of this encounter Care Teams Marinator Relationship Specialty Start Date End Date Preston Moulton PA PCP - General Family Medicine 03/10/23 documented as of this encounter
--- OUTSIDE RECORDS SUMMARY | 2024-10-02 02:33 | XMS_ITS | Encounter Summary ---
Author Organization [facility] Healthcare Address [address] [place] [address] Care Team Providers Care Human Resource Adviser Name Role Phone Sena Moulton Primary Care Provider [phone] Reason for Visit * Reason Comments Follow-up Encounter Details Date Type Department Care Team ([facility] st Contact Info) Description 01/17/2024 1:45 PM CDT Office Visit [facility] Primary Care [facility] [address] [place] [address] Sena Moulton PA [address] [place] [address] Other headache syndrome (Primary Dx); Palpitations; Type 2 diabetes mellitus with hyperglycemia, with long-term current use of insulin (HCC); Mixed hyperlipidemia; Gastroesophageal reflux disease without esophagitis Social History Tobacco Use Types Packs/Day Years [...] place to sleep or slept in a intermediate (including now)? No 02/11/2023 Personal Safety Answer Date Recorded Have you ever been in or are you currently in a harmful physical or emotional relationship or is someone making you feel afraid or unsafe? Denies 10/21/2023 Sex and Gender Information Value Date Recorded Sex Assigned at Not on file Legal Sex Male 9:22 AM [employer] Gender Identity Male 11/18/2021 1:25 PM [employer] Sexual Orientation Straight 11/18/2021 1: 25 PM [employer] documented as of this encounter Last Filed Vital Signs Vital Sign Reading Time Taken Comments Blood Pressure 122/84 01/17/2024 1:39 PM CDT Pulse 96 01/17/2024 1:39 PM CDT Temperature 36.4 ??C (97.5 ??F) 01/17/2024 1:39 PM CD T Respiratory Rate 16 01/17/2024 1:39 PM CDT Oxygen Saturation 98% 01/17/2024 1:39 PM CDT Inhaled Oxygen Concentration - - Weight 82.5 kg (181 lb 12.8 oz) 01/17/2024 1:39 PM CDT Height 172.7 cm (5' 7.99 ) 01/17/2024 1:39 PM CD T Body Mass Index 27.65 01/17/2024 1:39 PM CDT documented in this encounter Ordered Prescriptions Prescription Sig Dispense Quantity Refills Last Filled Start Date End Date pantoprazole DR (PROTONIX) 40 mg EC tabletIndications:G astroesophageal reflux disease without esophagitis Take 1 tablet (40 mg total) by mouth daily as needed (GERD) 90 tablet 3 01/17/2024 documented in this encounter Progress Notes * Sena Moulton, ALFREDITO - 01/17/2024 1:45 PM CDT Images from the original note were not included. Subjective/Objective Patient ID: Chadwick Holcomb is a 43 y.o. male. Chief Complaint Follow-up Vitals: 01/17/24 1339 BP: 122/84 BP Location: Left arm Patient Position: Sitting Pulse: 96 Resp: 16 Temp: 36.4 ??C (97.5 ??F) TempSrc: Temporal SpO2: 98% Weight: 82.5 kg (181 lb 12.8 oz) Height: 172.7 cm (5' 7.99 ) Patient is in for routine follow-up for the following medical conditions labs and medications. Diagnoses and all orders for this visit: Other headache syndrome (Primary): these are well controlled Palpitations: controlled Type 2 diabetes mellitus with hyperglycemia, with long-term current use of insulin (HCC): taking medications, since starting jardiance running in lower insulin Mixed hyperlipidemia: taking medications GERD: taking pantoprazole Past Medical History: Diagnosis Date Abdominal pain 02/10/[address] of the abdomen 02/23/2023 Acute pancreatitis Diabetes mellitus (HCC) Diabetic ketoacidosis without coma associated with other specified diabetes mellitus (HCC) 02/10/2023 Elevated glucose 03/05/2021 Vision changes 02/23/2023 Past Surgical History: Procedure Laterality Date CHOLECYSTECTOMY No Known Allergies Social History Tobacco Use Smoking status: Never Smokeless tobacco: None Substance and Sexual Activity Drug use: Never Sexual activity: Defer Alcohol Use: Unknown (11/21/2023) AUDIT-C Frequency of Alcohol Consumption: Monthly or less Average Number of Drinks: 1 or 2 Frequency of Binge Drinking: Not on file Family History Problem Relation Age of Onset Cancer Mother Diabetes Mother No Known Problems Father Hypertension Brother has a current medication list which includes the following prescription(s): glucose blood, blood-glucose meter, fenofibrate nanocrystallized (TRICOR), insulin glargine (LANTUS, SEMGLEE), insulin lispro (HUMALOG, ADMELOG), insulin syringe-needle u-100, lancets, metformin xr (GLUCOPHAGE XR), pantoprazole dr (PROTONIX), pen needle, diabetic, and rosuvastatin (CRESTOR). Review of Systems Constitutional: Negative for activity change. HENT: Negative for congestion. Respiratory: Negative for shortness of breath. Cardiovascular: Negative for chest pain. Gastrointestinal: Negative for abdominal pain. Physical Exam Constitutional: General: He is not [...] Skin: General: Skin is warm and dry. A1C 7.1 Assessment/Plan Diagnoses and all orders for this visit: Other headache syndrome (Primary) Assessment & Plan: This is currently well controlled will continue to follow Palpitations Assessment & Plan: He has a nearly non-existent will continue to follow Type 2 diabetes mellitus with hyperglycemia, with long-term current use of insulin ([facility]) Comments: continue insulin and jardiance Assessment & Plan: This is poorly controlled we had a long discussion about the importance of compliance he routinely misses his lunchtime insulin and he admits he eats very poorly and drink soda we discussed the ramifications of uncontrolled diabetes am going to get him on some Jardiance along with his current medications were going to recheck A1c in 8 weeks Orders: - Lipid panel; Future - Albumin Creatinine Ratio, Urine; Future - Comprehensive metabolic panel; Future Mixed hyperlipidemia Assessment & Plan: Patient is to continue present medications, work on diet and exercise as discussed, we did discuss the medications and potential side effects and signs and symptoms that would warrant calling office.Follow up routine. Orders: - Lipid panel; Future - Comprehensive metabolic panel; Future Orders Placed This Encounter Procedures Lipid panel Standing Status: Future Standing Expiration Date: 01/16/2025 Albumin Creatinine Ratio, Urine Standing Status: Future Standing Expiration Date: 01/16/2025 Comprehensive metabolic panel Standing Status: Future Standing Expiration Date: 01/16/2025 Body mass index is 27.65 kg/m??. BMI Follow-up includes: nutrition counseling, exercise counseling, and education provided. *This note is dictated using FlowJob medical voice recognition software, variances in spelling and vocabulary are possible and unintentional.* ALFREDITO Rivas documented in this encounter Miscellaneous Notes * Addendum Note - Sena Moulton PA - 01/17/2024 1:45 PM CDTAddended by: SENA MOULTON on: 01/17/2024 02:15 PM Modules accepted: Orders * Addendum Note - Tatum Bravo RN - 01/17/2024 1:45 PM CDTAddended by: TATUM BRAVO on: 01/17/2024 02:18 PM Modules accepted: Orders * Assessment & Plan Note - Sena Moulton PA - 01/12/2024 6:29 AM CDTAssociated Problem(s): Mixed hyperlipidemia Patient is to continue present medications, work on diet and exercise as discussed, we did discuss the medications and potential side effects and signs and symptoms that would warrant calling office.Follow up routine. * Assessment & Plan Note - Sena Moulton, ALFREDITO - 01/12/2024 6:29 AM CDTAssociated Problem(s): Type 2 diabetes mellitus [...] going to recheck A1c in 8 weeks * Assessment & Plan Note - Sena Moulton PA - 01/12/2024 6:29 AM CDTAssociated Problem(s): Palpitations He has a nearly non-existent will continue to follow * Assessment & Plan Note - Sena Moulton PA - 01/12/2024 6:29 AM CDTAssociated Problem(s): Other headache syndrome This is currently well controlled will continue to follow documented in this encounter Plan of Treatment Not on file documented as of this encounter Procedures Procedure Name Priority Date/Time Associated Diagnosis Comments POCT HEMOGLOBIN A1C Routine 01/17/2024 2 :18 PM CDT Type 2 diabetes mellitus with hyperglycemia, with long-term current use of insulin ([facility]) documented in this encounter Results * (ABNORMAL) Comprehensive metabolic panel (03/20/2024 8:14 AM CDT) Sodium 136 135 - 145 mmol/L Comment:Testing performed by : [facility], [address] [place] [address]., [address] Potassium, pl 4.4 3.3 - 4.9 mmol/L [facility] Comment:Testing performed by : [address], [place]., [address] Chloride 97 97 - 110 mmol/L [facility] Comment:Testing performed by : [address] [address] CO2 22 22 - 32 mmol/L [facility] Comment:Testing performed by : [address] [address] Anion gap 17(H) 2 - 15 mmol/L [facility] Comment:Testing performed by : [address], [place]., [address] BUN 16 6 - 25 mg/dL [facility] Comment:Testing performed by : [address] [address] Creatinine 0.90 0.80 - 1.30 mg/dL [facility] Comment:Testing performed by : [address] [address] Glucose 213(H) 70 - 199 mg/dL [facility] Comment: Interpretive Data Fasting glucose >/= 126 [...] was last revised 2022. Testing performed by: [address] [address] Calcium 9.7 8.5 - 10.3 mg/dL [facility] Comment:Testing performed by : [address] [address] Bilirubin, total 0.6 0.1 - 1.2 mg/dL [facility] Comment:Testing performed by : [address] [address] Protein, pl 8.0 6.5 - 8.5 g/dL [facility] Comment:Testing performed by : [address] [address] Albumin 4.9 3.5 - 5.0 g/dL [facility] Comment:Testing performed by : [address] [address] Alk phos 82 40 - 130 Units/L [facility] Comment:Testing performed by : [address] [address] ALT 40 7 - 55 Units/L [facility] Comment: Lipemic specimen Testing performed by: [address] [address] AST 22 10 - 50 Units/L [facility] Comment: Lipemic specimen Testing performed by: [address] [address] Blood 03/20/2024 8:14 AM CDT 03/20/2024 11:55 AM CDT Sena GLASER LAB BLOOD ORDERABLES Final Resu lt [facility] [address] [facility] Department [place] [address] * (ABNORMAL) Lipid panel (03/20/2024 8:14 AM CDT) Cholesterol 300(H) 30 - 199 mg/dL Comment: [...] 2018. Testing performed by: [facility], [address] [place] [address]., [address] Triglycerides 2,236(H) <=149 mg/dL [facility] Comment: [...] last revised on 2018. Testing performed by: [address] [address] HDL 18(L) >=40 mg/dL [facility] Comment: [...] last revised on 2018. Testing performed by: [address] [address] LDL, calculated See Comment <=129 mg/dL [facility] [...] last revised on 2018. Testing performed by: [address] [address] Non-HDL Cholesterol 282 mg/dL [facility] Comment: Interpretive [...] last revised on 2018. Testing performed by: [address] [address] Chol/HDL ratio 17 [facility] Comment:Testing performed by : [address] [address] Blood 03/20/2024 8:14 AM CDT 03/20/2024 11:55 AM CDT Sena GLASER LAB BLOOD ORDERABLES Final Resu lt Performing Organization Address [facility]/ZIP Co de Phone Number [facility] [address] [facility] [place] [address] * (ABNORMAL) Albumin Creatinine Ratio, Urine (03/20/2024 8:08 AM CDT) Albumin Ur 266.8 mg/L Comment: Interpretive Data No reference range established. Current interpretive data was last revised 2019. Testing performed by: [address] [address] Creatinine Ur 54.6 mg/dL [facility] Comment: Interpretive Data No reference range established. Current interpretive data was last revised 2019. Testing performed by: [address] [address] Albumin Creatinine Ratio, Ur 489(H) 1 - 29 mg/g [facility] Comment:Testing performed by : [address] [address] Urine 03/20/2024 8:08 AM CDT 03/20/2024 10:15 AM CDT Sena GLASER LAB URINE ORDERABLES Final Resu lt Performing Organization Address City/[facility]/ZIP Co de Phone Number [facility] [address] [facility] [place] [address] * POCT hemoglobin A1c (01/17/2024 2:18 PM CDT) Hemoglobin A1C, POC 7.1 % Blood 01/17/2024 2:18 PM CDT Sena GLASER POINT OF CARE TEST ORDERABLES F inal Result documented in this encounter Visit Diagnoses Diagnosis Other headache syndrome- Primary Palpitations Type 2 diabetes mellitus with hyperglycemia, with long-term current use of insulin (HCC) Mixed hyperlipidemia Gastroesophageal reflux disease without esophagitis Esophageal reflux documented in this encounter Discontinued Medications Medication Sig Discontinue Reason Start Date End Da te pantoprazole DR (PROTONIX) 40 mg EC tablet Take 1 tablet (40 mg total) by mouth daily as needed Reorder 01/17/2024 documented as of this encounter Historical Medications * This list may reflect changes made after this encounter. Medication Sig Dispense Quantity Refills Last Filled Start D ate End Date Jardiance 25 mg tablet 12/20/2023 03/20/2024 added in this encounter Care Teams Human Resource Adviser Relationship Specialty Start Date End Date Sena Moulton PA PCP - General Family Medicine 03/10/23 documented as of this encounter
--- OUTSIDE RECORDS SUMMARY | 2024-10-02 02:34 | XMS_ITS | Encounter Summary ---
Author Organization [facility] Address [address] [place] [address] Care Team Providers Care Nurse Prn Name Role Phone Preston Moulton Primary Care Provider [phone] Reason for Visit * Reason Comments New Patient Diabetes Type 2 * Consultation (Urgent) - Closed Specialty Diagnoses / Procedures Referred By Contac t Referred To Contact Endocrinology Diagnoses Diabetic ketoacidosis without coma associated with other specified diabetes mellitus (HCC) Type 2 diabetes mellitus with hyperglycemia, without long-term current use of insulin (HCC) Preston Moulton PA Phone: tel: fax: [facility] [address] [address] Phone: tel: fax: Referral ID Status Reason Start Date Expiration Date V isits Requested Visits Authorized [id number] Closed Specialty Services Required 02/23/2023 03/24/2024 1 1 Encounter Details Date Type Department Care Team (Latest Contact Info) Description 05/05/2023 3:00 PM CDT Office Visit [facility] [address] [address] Jessica Genao, LUNCHROOM WORKER [address] [place] [address] Type 2 diabetes mellitus with hyperglycemia, without long-term current use of insulin (CMS/HCC) (HCC) (Primary Dx); Mixed hyperlipidemia Social History Tobacco Use Types [...] often do you attend chur ch or lutheran services? More than 4 times per year 02/11/2023 Do you belong to any clubs o r organizations such as adventism groups, unions, fraternal or athletic groups, or school groups? No 02/11/2023 How often do you attend meet ings of the clubs or organizations you belong to? Never 02/11/2023 Are you , , di vorced, , never , or living with a partner? Never 02/11/2023 AUDIT-C Answer Date Recorded Q1: How often do you have a drink containing alc ohol? Monthly or less 04/06/2023 Q2: How many drinks containi ng alcohol do you have on a typical day when you are drinking? 1 or 2 04/06/2023 Frequency of Binge Drinking Not on file 03/26 Overall Financial Resource Strain (CARDIA) Answe r [...] medical appointments or from getting medications? No 05/1 05/2023 In the past 12 months, has l [...] in a fpc (including now)? No 02/11/2023 Sex and Gender Information Value Date Recorded Sex Assigned at Not on file Legal Sex Male 9:22 AM EQUIPMENT LEAD Gender Identity Male 11/18/2021 1:25 PM EQUIPMENT LEAD Sexual Orientation Straight 11/18/2021 1: 25 PM EQUIPMENT LEAD documented as of this encounter Last Filed Vital Signs Vital Sign Reading Time Taken Comments Blood Pressure 118/84 05/05/2023 3:08 PM CDT Pulse - - Temperature - - Respiratory Rate - - Oxygen Saturation - - Inhaled Oxygen Concentration - - Weight 78.1 kg (172 lb 3.2 oz) 05/05/2023 3:08 P M CDT Height 172.7 cm (5' 8 ) 05/05/2023 3:08 PM CDT Body Mass Index 26.18 05/05/2023 3:08 PM CDT documented in this encounter Patient Instructions * Patient Instructions* Jessica Genao, AALIYAH - 05/05/2023 3:00 PM CDT Thanks for coming in today. I am thankful you have trusted me with your care, and hope that you received EXCELLENT care today! Please do not hesitate to call if you have any questions or concerns at [phone]. You may receive a phone call or text asking about your care today. I would love to hear your input and again, hope your visit was as EXCELLENT as possible, even if you were not feeling your best! Medications: Please take medications as prescribed. decrease Lantus 50 units daily, increase Humalog 17 units 3 times a day 15 minutes prior to meals, increase metformin 500 mg 3 tablets nightly. Monitoring: Check blood sugar 3x times per day and record. We will be requesting to see blood sugar at your next visit. Call office if blood sugars is dropping below 80. Call office if your blood sugar is greater than 250, for 3 days. A medication adjustment is needed. Monitor your weight, even a 10 pound weight loss can help to reduce medication. Hypoglycemia is a blood sugar below 80. If your blood sugar level is below 80, eat or drink 15 grams of fast-acting carbohydrate. (examples: 4 oz (?? cup) of fruit juice, 4 oz of regular soda or 4 glucose tablets.) Check your blood sugar level 15 minutes later. If the level is still low (less than 100 mg/dL), have another 15 grams of carbohydrate. When the level returns to 100 mg/dL, eat a snack or meal that contains carbohydrates. This will help prevent another drop in blood sugar. Nutrition: Eat healthy, include fresh fruits and vegetables daily. Eat no more than 45-60 grams of carbs per meal. Do not eat fried foods more than once per week. To see the Dietitian, Electrical Appliance Mechanic or attend Diabetes Class, Schedule an appointment by calling Centralized Scheduling at [phone]. Exercise: Try moving at least a total of 30 minutes/day. This does not have to be done at one time. Self Care and Risk Reduction: Please get a Dilated eye exam yearly and have results faxed to the office. Check Feet daily, watch for blisters, cuts or sores. Wash, dry and lotion feet daily. Notify your doctor if a wound develops. Always carry a source of fast-acting carbohydrate with you. documented in this encounter Ordered Prescriptions Prescription Sig Dispense Quantity Refills Last Filled Start Date End Date pantoprazole DR (PROTONIX) 40 mg EC tabletIndications: Stress Ulcer Prophylaxis Take 1 tablet (40 mg total) by mouth 2 (two) times a day 60 tablet 1 05/05/2023 4 insulin lispro (HumaLOG) 100 unit/mL pen for injectionIndicatio ns:type 2 diabetes mellitus Inject 17 Units under the skin 3 (three) times a day before meals E11.65 45 mL 3 05/05/2023 4 metFORMIN XR (GLUCOPHAGE XR) 500 mg 24 hr tabletIndications: Type 2 diabetes mellitus with hyperglycemia, without long-term current use of insulin (HCC) Take 3 tablets nightly. E11.65 270 tablet 3 05/05/2023 4 insulin glargine (LANTUS, SEMGLEE) 100 unit/mL vial for injectionIndicatio ns:Type 2 diabetes mellitus with hyperglycemia, without long-term current use of insulin (HCC) Inject 50 Units under the skin nightly 60 mL 3 05/05/2023 4 documented in this encounter Progress Notes * Jessica Genao, LUNCHROOM WORKER - 05/05/2023 3:00 PM CDT Images from the original note were not included. Patient ID: Chadwick Holcomb is a 43 y.o. male. Chief Complaint New Patient and Diabetes Type 2 Today visit is an initial visit for consultation requested by ALFREDITO Narvaez for evaluation and treatment of Type 2 Diabetes. he was diagnosed with Diabetes in 02/15 and started insulin. He reports a family history of diabetes which includes his mother sister and brother. he does exercises but staysactive with family and friends. he eats 3 meals/day. he monitors blood sugar 3 to daily. A.m. blood sugars range from 136-284, p.m. blood sugars range from 133-156, 2100 blood sugars range from 131-301. He denies hypoglycemia. his weight is stable. he reports medication compliance is good and he istaking all of his injections of insulin. Today's visit is to review labs and discuss future plan Diabetes regimen includes: decrease Lantus 50 units daily, increase Humalog 17 units 3 times a day 15 minutes prior to meals, increase metformin 500 mg 3 tablets nightly. 02/08/23 09:50 C-Peptide, Serum: 1.4 02/08/23 09:50 GAD65 ab ser: TNP Subjective/Objective Review of Systems Constitutional: Negative for activity change, appetite change, fatigue and unexpected weight change. HENT: Positive for sneezing and sore throat. Negative for congestion and sinus pressure. Eyes: Positive for visual disturbance. Negative for pain. Respiratory: Negative for cough, shortness of breath and wheezing. Cardiovascular: Negative for chest pain and leg swelling. Gastrointestinal: Negative for abdominal pain, diarrhea, nausea and vomiting. Endocrine: Negative for polydipsia, polyphagia and polyuria. Genitourinary: Negative for difficulty urinating and frequency. Musculoskeletal: Negative for arthralgias. Neurological: Negative for dizziness and numbness. Psychiatric/Behavioral: Negative for confusion. The patient is not nervous/anxious. Physical Exam Constitutional: Appearance: Normal appearance. HENT: Head: Normocephalic. Right Ear: External ear normal. Left Ear: External ear normal. Nose: Nose normal. Mouth/Throat: Mouth: Mucous membranes are moist. Cardiovascular: Pulses: Normal pulses. Pulmonary: Effort: Pulmonary effort is normal. Skin: General: Skin is warm and dry. Neurological: Mental Status: He is alert and oriented to person, place, and time. Labs: Lab Results Component Value Date HGBA1C 7.6 (H) 04/13/2023 HGBA1C 10.4 (H) 03/03/2023 HGBA1C 13.0 (H) 02/10/2023 HGBA1C 14.7 02/08/2023 Chemistry Lab Results Component Value Date SODIUM 140 03/30/2023 POTASSIUM 3.9 03/30/2023 CHLORIDE 103 03/30/2023 CO2 28 03/30/2023 ANIONGAP 9 03/30/2023 BUNSER 15 03/30/2023 CREATININE 1.10 03/30/2023 GLUCOSE 150 03/30/2023 CALCIUM 9.8 03/30/2023 BILITOT 0.5 03/30/2023 ALBUMIN 4.9 03/30/2023 GFRNAA 85 03/30/2023 ALKPHOS 63 03/30/2023 AST 26 03/30/2023 ALT 36 03/30/2023 PHOS 4.7 (H) 02/15/2023 MAGNESIUM 1.9 02/15/2023 Lab Results Component Value Date ALBUMINUR 229.8 02/08/2023 CREATININEUR 50.8 02/08/2023 ALBCREATRATU 452 (H) 02/08/2023 Lab Results Component Value Date CHOL 134 04/13/2023 HDL 34 (L) 04/13/2023 TRIG 186 (H) 04/13/2023 LDLCALC 63 04/13/2023 Assessment/Plan Diagnoses and all orders for this visit: Type 2 diabetes mellitus with hyperglycemia, without long-term current use of insulin ([facility] ([facility]) (Primary) Assessment & Plan: This is a chronic condition which is [...] last eye exam performance eye Care in [facility] Monofilament foot exam completed. protective senses intact Personally reviewed [facility] eGFR- 85 Kidney function- normal Urine microalbumin/creatinine ratio - not at goal <30 not treated with BHARAT/ARB. Will repeat tests now that blood sugars are in better control B/P today- at goal of <140/90. Personally reviewed lipid panel. at Goal of less than 70. Continue rosuvastatin, fenofibrate Orders: - Ambulatory referral to Endocrinology - POCT glucose - Glutamic acid decarboxylase; Future - anti islet cell antibody - Miscellaneous Test; Future - insulin glargine (LANTUS, SEMGLEE) 100 unit/mL vial for injection; Inject 50 Units under the skinnightly - metFORMIN XR (GLUCOPHAGE XR) 500 mg 24 hr tablet; Take 3 tablets nightly. E11.65 - Albumin Creatinine Ratio, Urine; Future - Ambulatory referral to Diabetes and Nutrition; Future Mixed hyperlipidemia Assessment & Plan: This is a chronic condition which is at goal of LDL less than 70 Continue rosuvastatin, fenofibrate Encouraged to eat healthy, include fresh fruits and vegetables daily and avoid eating fried foods more than once per week. Encouraged to take medications as prescribed. Other orders - insulin lispro (HumaLOG) 100 unit/mL pen for injection; Inject 17 Units under the skin 3 (three) times a day before meals E11.65 - pantoprazole DR (PROTONIX) 40 mg EC tablet; Take 1 tablet (40 mg total) by mouth 2 (two) times a day Discussed and educated on eating a healthy low carb diet, include fresh fruits and vegetables daily. Encouraged to try moving at least a total of 30 minutes/day. Just move more. Instructed to wash, dry lotion and check feet daily. Discussed importance of avoiding hypoglycemia and treatment of hypoglycemia. Instructed to notify office if blood sugars are less than 80 or greater than 250 for 3 days Discussion of treatment plan and prescribed medications. Return in about 3 months (around 08/05/2023). Jessica Genao NP documented in this encounter Miscellaneous Notes * Assessment & Plan Note - Jessica Genao NP - 05/05/2023 4:17 PM CDTAssociated Problem(s): Mixed hyperlipidemia This is a chronic condition which is at goal of LDL less than 70 Continue rosuvastatin, fenofibrate Encouraged to eat healthy, include fresh fruits and vegetables daily and avoid eating fried foods more than once per week. Encouraged to take medications as prescribed. * Assessment & Plan Note - Jessica Genao NP - 05/05/2023 3:13 PM CDTAssociated Problem(s): Type 2 diabetes mellitus with hyperglycemia, with long-term current use of insulin (HCC) This is a chronic condition which is [...] last eye exam performance eye Care in [facility] Monofilament foot exam completed. protective senses intact Personally reviewed [facility] eGFR- 85 Kidney function- normal Urine microalbumin/creatinine ratio - not at goal <30 not treated with BHARAT/ARB. Will repeat tests now that blood sugars are in better control B/P today- at goal of <140/90. Personally reviewed lipid panel. at Goal of less than 70. Continue rosuvastatin, fenofibrate documented in this encounter Plan of Treatment Not on file documented as of this encounter Procedures Procedure Name Priority Date/Time Associated Diagnosis Comments POCT GLUCOSE Routine 05/05/2023 3:08 PM CDT Type 2 diabetes mellitus with hyperglycemia, without long-term current use of insulin ([facility] ([facility]) documented in this encounter Results * POCT glucose (05/05/2023 3:08 PM CDT) Glucose Blood, POC 210 mg/dL Blood 05/05/2023 3:08 PM CDT Jessica Genao NP POINT OF CARE TEST ORDERABLES F inal Result documented in this encounter Visit Diagnoses Diagnosis Type 2 diabetes mellitus with hyperglycemia, without long-term current use of insulin ([facility])- Primary Mixed hyperlipidemia documented in this encounter Discontinued Medications Medication Sig Discontinue Reason Start Date End Da te insulin lispro (HumaLOG, ADMELOG) 100 unit/mL vial for injectionIndications:Di abetes Mellitus Inject 10 Units under the skin 3 (three) times a day with meals Therapy completed 03/03/2023 05/05/2023 metFORMIN XR (GLUCOPHAGE XR) 500 mg 24 hr tabletIndications:Type 2 diabetes mellitus with hyperglycemia, without long-term current use of insulin ([facility]) Take 1 tablet (500 mg total) by mouth 2 (two) times a day before breakfast and lunch Reorder 02/08/2023 05/05/2023 insulin glargine (LANTUS, SEMGLEE) 100 unit/mL vial for injectionIndications:Ty pe 2 diabetes mellitus with hyperglycemia, without long-term current use of insulin (HCC) Inject 75 Units under the skin nightly Reorder 03/03/2023 05/05/[address] (PROTONIX) 40 mg EC tabletIndications:Stres s Ulcer Prophylaxis Take 1 tablet (40 mg total) by mouth 2 (two) times a day Reorder 02/15/2023 05/05/2023 documented as of this encounter Orders Outpatient Referral Count Last Ordered Date Fir st Ordered Date AMB REFERRAL TO ENDOCRINOLOGY 1 05/05/2023 documented in this encounter Care Teams Nurse Prn Relationship Specialty Start Date End Date Preston Moulton PA PCP - General Family Medicine 03/10/23 documented as of this encounter
--- OUTSIDE RECORDS SUMMARY | 2024-10-02 02:34 | XMS_ITS | Encounter Summary ---
Author Organization [facility] Healthcare Address [address] [place] [address] Care Team Providers Care Technology Applications Teacher Name Role Phone Preston Moulton Primary Care Provider [phone] Reason for Visit * Reason Comments Abdominal Pain * Auth/Cert (Routine) Specialty Diagnoses / Procedures Referred By Contac t Referred To Contact Diagnoses Cholecystitis Hyperglycemia Hypertension, unspecified type Procedures na Referral ID Status Reason Start Date Expiration Date Visits Re quested Visits Authorized [id number] 1 1 Encounter Details Date Type Department Care Team (Late st Contact Info) Description 10/21/2023 10:57 AM TREATING PLANT OPERATOR - 10/21/2023 12:57 PM [facility] Surgery [facility] OR [address] [place] [address] [phone] Edmundo James MD [address] [place] [id number] LAPAROSCOPIC CHOLECYSTECTOMY Surgery Details Date/Time Status Location OR Service Patient Class Case Class Case Type Trauma Case? 10/21/2023 10:57 AM Posted E OPERATING ROOM OR General Surgery Emergency Urgent - 6 hours Panel 1 Procedure LRB Anes Op Region Wound Class Comments LAPAROSCOPIC CHOLECYSTECTOMY N/A General Abdomen Class II - Clean Contaminated Surgeon Surgeon Role Service Panel Edmundo James MD Primary General Surgery 1 documented in this encounter Social History Tobacco Use Types Packs/Day Years [...] often do you attend chur ch or advent services? More than 4 times per year 02/11/2023 Do you belong to any clubs o r organizations such as episcopal groups, unions, fraternal or athletic groups, or [...] on file Legal Sex Male 9:22 AM TREATING PLANT OPERATOR Gender Identity Male 11/18/2021 1:25 PM TREATING PLANT OPERATOR Sexual Orientation Straight 11/18/2021 1: 25 PM TREATING PLANT OPERATOR documented as of this encounter Last Filed Vital Signs Vital Sign Reading Time Taken Comments Blood Pressure 105/72 10/21/2023 12:57 PM TREATING PLANT OPERATOR Pulse 80 10/21/2023 12:57 PM TREATING PLANT OPERATOR Temperature 36.4 ??C (97.6 ??F) 10/21/2023 1 2:47 PM TREATING PLANT OPERATOR Respiratory Rate 18 10/21/2023 12:5 7 PM TREATING PLANT OPERATOR Oxygen Saturation 100% 10/21/2023 12: 57 PM TREATING PLANT OPERATOR Inhaled Oxygen Concentration - - Weight 78.9 kg (173 lb 15.1 oz) 10/21/2023 3:53 AM TREATING PLANT OPERATOR Height 172.7 cm (5' 8 ) 10/21/2023 3:53 AM TREATING PLANT OPERATOR Body Mass Index 26.71 10/21/2023 3:55 PM TREATING PLANT OPERATOR documented in this encounter Discharge Summaries * John Lamar MD - 10/22/2023 1:04 PM CST Inpatient Discharge Summary Patient Name - Jose Roberto Pack Patient Age - 43 yrs Patient - [id number] CSN - [id number] Document Creation Date: 10/22/2023 Admitting Provider, : John Lamar MD Discharge Provider, MD: John Lamar MD Primary Care Physician at Discharge: Preston Moulton PA [phone] Admission Date: 10/21/2023 Discharge Date/time: 10/22/2023 Admission Location: [facility] LOS - LOS: 1 day DETAILS OF HOSPITAL STAY Hospital Problems/Diagnoses Active Problems: Type 2 diabetes mellitus with hyperglycemia, with long-term current use of insulin ([facility] ([facility]) Mixed hyperlipidemia RUQ pain Calculus of gallbladder with acute cholecystitis without obstruction Reason for Hospitalization: Right upper quadrant abdominal pain Hospital Course: CHIEF COMPLAINT: Patient is a 43 y.o. male with a PMHx significant for acute pancreatitis, type 2 diabetes. Presentswith complaint of right upper quadrant pain since 02:30 HPI: Patient reports last night before he went to bed he had [employer] pizza. He reports 02:30 he was awakened with upper abdominal pain. He states he has felt bloated. He denies nausea, vomiting, fever or chills. He states he was told he had gallstones about a year ago but has not had any problems. No chest pain or shortness of breath. Patient currently rates his pain at 5/10 ASSESSMENT/PLAN: Active Problems: RUQ pain Calculus of gallbladder with acute cholecystitis without obstruction Type 2 diabetes mellitus with hyperglycemia, with long-term current use of insulin ([facility]) ([facility]) Mixed hyperlipidemia Resolved Problems: No resolved hospital problems. 1. Right upper quadrant pain/gallstones with acute cholecystitis-CT of abdomen and pelvis with contrast shows noncalcified stones versus sludge in the gallbladder neck measuring up to 14 mm in diameter. Gallbladder mildly distended. Possible acute cholecystitis do right upper quadrant ultrasound if needed. LFTs are within normal range. However patient's symptoms are consistent with acute cholecystitis. Ultrasound was not performed. Dr. James surgeon was consulted. Patient was started on Zosyn4.5 g IV. Will continue 3.375 g IV q.8 hours postoperatively. The patient had not received anythingfor pain in the ER. He declines it now as he is getting ready to go to surgery. He has not nauseous. Postop orders will be per Dr. James. Continue Protonix 40 mg daily starting tomorrow. 2. Type 2 diabetes with hyperglycemia-patient's initial blood sugar was 291. I will check a hemoglobin A1c. He is on Lantus 50 units nightly will decrease this to 40 while he is hospitalized. As patient is currently NPO will place on an NPO sliding scale for now and adjust as needed. Diet will be as tolerated postoperatively per Dr. James 3. Hyperlipidemia-continue Crestor 20 mg nightly Full Code Spoke with the patient regarding diagnosis, treatment and plan. He agrees with the plan. 10/22/23 Hospital course Mr. Contreras on 02/19/2024 for after being evaluated in the emergency room and diagnosis having acute cholecystitis. Patient was started on IV Zosyn made and p.o. given IV fluids and seen by Dr. James general surgeon who took the patient to surgery. Patient had laparoscopic cholecystectomy with intraoperative cholangiogram. Gallbladder was sent for pathology results on that are pending. Patient stayed overnight and on postop day 1 was felt to be stable for discharge from surgery standpoint medically gallegos patient was medically stable. He was tolerating regular diabetic diet ambulating in the room vitals were stable and was wanting to go home. Patient's chronic medical problems diabetes and hyperlipidemia well compensated patient will continue on his home regimen. Patient will follow-up with Dr. James in 2 weeks. Discharge Details Physical Exam at Discharge: Discharge Condition: good Pulse: 82 Resp: 16 BP: 126/95 Temp: 36.8 ??C (98.2 ??F) Weight: 79.7 kg (175 lb 9.6 oz) Pertinent Exam Findings at Discharge: Constitutional: General: NAD Appearance: He is well-developed. HENT: Head: Normocephalic and atraumatic. Eyes: General: No scleral icterus. Right eye: No discharge. Left eye: No discharge. Conjunctiva/sclera: Conjunctivae normal. Pupils: Pupils are equal, round, and reactive to light. Neck: Thyroid: No thyromegaly. Cardiovascular: Rate and Rhythm: Normal rate and regular rhythm. Heart sounds: Normal heart sounds. No murmur heard. No friction rub. No gallop. Pulmonary: Effort: Pulmonary effort is normal. No respiratory distress. Breath sounds: Normal breath sounds. No wheezing or rales. Chest: Chest wall: No tenderness. Abdominal: General: Bowel sounds are normal. There is no distension. Palpations: Abdomen is soft. Tenderness: There is mild incisional tenderness. There is no guarding or rebound. Hernia: No hernia is present. Comments Musculoskeletal: General: No tenderness or deformity. Normal range of motion. Cervical back: Normal range of motion and neck supple. Right lower leg: No edema. Left lower leg: No edema. Lymphadenopathy: Cervical: No cervical adenopathy. Skin: General: Skin is warm and dry. Capillary Refill: Capillary refill takes less than 2 seconds. Findings: No rash. Neurological: Mental Status: He is alert and oriented to person, place, and time. Sensory: No sensory deficit. Psychiatric: Behavior: Behavior normal. Thought Content: Thought content normal. Judgment: Judgment normal. Discharge Disposition: Discharge to home or self care Code Status at Discharge: Full Code Active Issues & Recommended Plan for Follow-up: Patient follows up with Dr. Jacob hinds weeks Allergies: Patient has no known allergies. Discharge Medications: Your medication list START taking these medications Instructions Last Dose Given Next Dose Due acetaminophen 325 mg tablet Commonly known as: TYLENOL 650 mg, oral, Every 4 hours PRN HYDROcodone-acetaminophen 5-325 mg per tablet Commonly known as: NORCO 2 tablets, oral, Every 6 hours PRN CHANGE how you take these medications Instructions Last Dose Given Next Dose Due fenofibrate nanocrystallized 145 mg tablet Commonly known as: TRICOR What changed: when to take this 145 mg, oral, Daily rosuvastatin 20 mg tablet Commonly known as: CRESTOR What changed: when to take this 20 mg, oral, Daily CONTINUE taking these medications Instructions Last Dose Given Next Dose Due blood-glucose meter kit Use as directed to check blood glucose four times per day glucose blood test strip Generic drug: blood glucose diagnostic Use as directed to check blood glucose 4 times per day insulin glargine 100 unit/mL vial for injection Doctor's comments: Please give 90 day supply Commonly known as: LANTUS, SEMGLEE 50 Units, subcutaneous, Nightly insulin lispro 100 unit/mL vial for injection Commonly known as: HumaLOG, ADMELOG 20 Units, subcutaneous, 3 times daily before meals insulin syringe-needle U-100 1 mL 31 gauge x 5/16 syringe Use to inject 1-4 times daily as directed. lancets misc Use as directed to check blood glucose 4 times per day metFORMIN XR 500 mg 24 hr tablet Commonly known as: GLUCOPHAGE XR Take 3 tablets nightly. E11.[address] 40 mg EC tablet Commonly known as: PROTONIX 40 mg, oral, Daily PRN pen needle, diabetic 31 gauge x 5/16 needle Use to inject 1-4 times daily as directed. Where to Get Your Medications These medications were sent to [id number] - [place], [place] - [address], [facility] [id number] HYDROcodone-acetaminophen 5-325 mg per tablet Information about where to get these medications is not yet available Ask your nurse or doctor about these medications acetaminophen 325 mg tablet Time Spent in Discharge Process: I have spent 26 minutes on discharge planning activities. Time spent was on reviewing the chart, examined the patient, entering orders, completing discharge summary, answering patient's questions and concerns. Test Results Pending at Discharge (If Blank, None Found): Pending Labs Order Current Status Surgical pathology In process Operative Procedures Performed (If Blank, None Found): Procedure(s): LAPAROSCOPIC CHOLECYSTECTOMY Outpatient Follow-Up: Contact Information for Follow-ups Edmundo James MD Specialty: General Surgery [address] [address] Next Steps: Follow up in 2 week(s) Please schedule an appointment with the following provider(s): Edmundo James MD [address] [place] [id number] Follow up in 2 week(s) ANCILLARY INFORMATION Other Procedures & Diagnostic Tests: FL Cholangiogram Intraoperative Result Date: 10/21/2023 EXAM DESCRIPTION: FL CHOLANGIOGRAM INTRAOPERATIVE REASON FOR STUDY: Abdomen pain 50 cc COMPARISON: 10/21/2023 RADIATION DOSE: Dose: 13 mGy Reference Air Kerma (Ka,r) TECHNIQUE: Fluoro spot images were obtained in the OR from an intraoperative cholangiogram and saved to PACS. FINDINGS: There is opacification of the gallbladder, bile ducts, cystic duct remnant and second portion of the duodenum without evidence of fixed filling defect or significant extravasation. IMPRESSION: Intraoperative cholangiogram. THIS IS AN ELECTRONICALLY VERIFIED FINAL REPORT 10/21/2023 12:09 PM - Electronically signedby Edmundo Tapia M.D. KN: IRENA Report ID: [id number] Reading Location: [id number] CT Abdomen Pelvis W Contrast Result Date: 10/21/2023 EXAM DESCRIPTION: CT ABDOMEN PELVIS W CONTRAST REASON FOR STUDY: ruq abd pain Pt c/o upper right quadrant pain radiating to back, pt states Im pretty sure its my gallbladder , pt states was seen here for same pain and was told would likely have to have gallbladder, pt states was given follow up info but was told by ED MD just to wait till I was having pain again and come through ED it would be f kelby TECHNIQUE: CT scan of the abdomen and pelvis performed with intravenous and without oral contrast using helical scanning technique with dynamic intravenous contrast injection. Reconstructed coronal and sagittal MPR images reviewed. All images stored on PACS. Automated exposure control was used as a dose optimization technique for this examination. CONTRAST TYPE/DOSE: 90mL of IOVERSOL 350 MG IODINE/ML INTRAVENOUS SYRINGE injected via intravenous [facility] REFERENCE: Per ACR white paper recommendations, unless otherwise specified no follow-up imaging is recommended for incidental renal and adrenal lesions per consensus recommendations based on imaging criteria. Further lab evaluation could be pursued based on clinical findings. FINDINGS: LOWER CHEST: The lung bases are clear. LIVER: There is diffuse decreased attenuation of the liver consistent with diffuse hepatic steatosis. GALLBLADDER: The gallbladder is mildly distended. There are noncalcified stones versus sludge balls seen in the gallbladder neck measuring up to 14 mm in diameter. BILE DUCTS: No intrahepatic or extrahepatic ductal dilatation. PANCREAS: Normal. SPLEEN: Normal size. No focal lesions. ADRENALS: Normal. KIDNEYS/URINARY TRACT: No identified significant cysticor solid masses. No visualized stones. No hydronephrosis or hydroureter. Urinary bladder is unremarkable. VASCULATURE: No acute abnormality seen. No abdominal aortic aneurysm. GI: The stomach appearsnormal. There is no significant small bowel dilation or visible thickening. There are scattered dive rticula in the descending and sigmoid colon. The appendix is normal. PERITONEUM/MESENTERY: No ascites or free air. LYMPH NODES: There are no enlarged lymph nodes seen by CT size criteria. REPRODUCTIVE: No significant abnormality. MUSCULOSKELETAL: No significant abnormality. OTHER: No other abnormality. IMPRESSION: Noncalcified stones versus sludge balls seen in the gallbladder neck measuring up to 14 mm in diameter. The gallbladder is mildly distended. If there is clinical concern for acute cholecystitis, consider follow-up right upper quadrant ultrasound. Diffuse hepatic steatosis. Scatteredcolonic diverticula. No CT evidence of acute diverticulitis. THIS IS AN ELECTRONICALLY VERIFIED FINAL REPORT 10/21/2023 6:53 AM - Electronically signed by Renae Patel M.D. SN: Report ID: [id number] Reading Location: [id number] Recent Labs: Recent Labs Lab Units 10/22/23 05010/21/23 040 WBC K/cumm 13.0* 8.8 HEMOGLOBIN g/dL 12.9* 14.9 HEMATOCRIT % 36.3* 41.4 PLATELETS K/cumm 274 316 Recent Labs Lab Units 10/22/23 05010/21/23401 WBC K/cumm 13.0* 8.8 HEMOGLOBIN g/dL 12.9* 14.9 HEMATOCRIT % 36.3* 41.4 PLATELETS K/cumm 274 316 NEUTROS PCT % 77.1 58.1 LYMPHS PCT % 13.0 27.7 MONOS PCT % 9.1 8.7 EOS PCT % 0.2 4.1 Recent Labs Lab Units 10/22/23 0810/22/23 05010/21/23 0810/21/23 040 SODIUM mmol/L -- 140 -- 137 POTASSIUM PLASMA mmol/L -- 4.1 -- 3.6 CHLORIDE mmol/L -- 105 -- 100 CO2 mmol/L -- 24 -- 24 BUN SERUM mg/dL -- 10 -- 11 CREATININE mg/dL -- 1.00 -- 0.90 BPG-USY-EAOBFID mL/min/1.73 m2 -- 95 -- 107 GLUCOSE mg/dL -- 248* -- 291* POC GLUCOSE MONITOR mg/dL 204* -- < > -- CALCIUM mg/dL -- 8.7 -- 9.4 ALBUMIN g/dL -- 3.9 -- 4.2 < > = values in this interval not displayed. Recent Labs Lab Units 10/22/23 0810/22/23 05010/21/23220910/21/2385710/21/23 0402 SODIUM mmol/L -- 140 -- -- 137 POTASSIUM PLASMA mmol/L -- 4.1 -- -- 3.6 CHLORIDE mmol/L -- 105 -- -- 100 CO2 mmol/L -- 24 -- -- 24 ANIONGAP mmol/L -- 11 -- -- 13 GLUCOSE mg/dL -- 248* -- -- 291* POC GLUCOSE MONITOR mg/dL 204* -- 316* < > -- BUN SERUM mg/dL -- 10 -- -- 11 CREATININE mg/dL -- 1.00 -- -- 0.90 CALCIUM mg/dL -- 8.7 -- -- 9.4 ALBUMIN g/dL -- 3.9 -- -- 4.2 ALK PHOS Units/L -- 72 -- -- 89 ALT Units/L -- 134* -- -- 52 AST Units/L -- 92* -- -- <5* BILIRUBIN TOTAL mg/dL -- 0.6 -- -- 0.3 < > = values in this interval not displayed. Recent Labs Lab Units 10/22/23 0505 10/21/23 0402 ALK PHOS Units/L 72 89 BILIRUBIN TOTAL mg/dL 0.6 0.3 TOTAL PROTEIN g/dL 6.8 7.2 ALT Units/L 134* 52 AST Units/L 92* <5* Lab Results Component Value Date GLUCOSE 204 (H) 10/22/2023 GLUCOSE 248 (H) 10/22/2023 GLUCOSE 316 (H) 10/21/2023 Implant: Implants No active implants to display in this view. General Precautions (If Blank, None Found): Isolation Status: No active isolations Nutritional Status and in-house recommendations: Dietary Orders (From admission, onward) Start Ordered 10/21/23 2100 Bedtime snack At bedtime Comments: If bedtime BG is less than 100mg/dl, give patient a 15 gram carbohydrate snack. 10/21/23 0916 10/21/23 2100 Bedtime snack At bedtime Comments: If bedtime BG is less than 100mg/dl, give patient a 15 gram carbohydrate snack. 10/21/23 1059 10/21/23 1718 Adult Diet Regular; No Straws Diet effective now Question Answer Comment (MHB/MHE) Diet type Regular Other Services: No Straws 10/21/23 171 Anticoagulation Indication: INR: No results found for requested labs within last 30 days. Warfarin Administrations (last 168 hours) None Oxygen Status: O2 Therapy for the past 12 hrs: O2 Therapy 10/22/23 0722 None (Room air) 10/22/23 0414 None (Room air) Wound Care Instructions Other Instructions Call provider for: Temperature -Temperature greater than 101 degrees F Call provider for: difficulty breathing or chest pain Call provider for: hives Call provider for: persistent nausea or vomiting Call provider for: redness, tenderness, or signs of infection (pain, swelling, redness, odor or green/yellow discharge around incision site) Call provider for: severe uncontrolled pain Call provider for: headache, visual disturbances, weakness and speech changes Post-Discharge Dressing Care: Change daily. Change Dressing: Change daily. Active LDAs (If Blank, None Found): Peripheral IV 10/21/23 20 G Right Antecubital (Active) Placement Date/Time: 10/21/23 0400 Type: Angiocath Size (Gauge): 20 G Location Orientation: Right Location: Antecubital Patient Emergency Contact: Primary Emergency Contact: Chayito Cortez Immunization Status at Discharge Immunization History Administered Date(s) Administered DTP 04/07/1984, 04/27/1991, 06/29/1991, 01/04/1992, 02/08/1992 Hep B Vaccine 07/19/2011, 08/23/2011, 05/01/2012 Andrei (J&J) SARS-CoV-2 Vaccination 02/14/2021 MMR 04/27/1991, 06/29/1991 Measles / Rubella 04/07/1984 OPV 04/07/1984, 04/27/1991, 06/29/1991, 01/04/1992 Td, Unspecified 09/06/2011 John Lamar MD TING PLANT OPERATOR documented in this encounter Discharge Instructions * Discharge Instructions* Foster Swenson MD - 10/22/2023 10:30 AM TREATING PLANT OPERATOR Okay to return to work 10/24/23. No lifting pushing pulling greater than 10 lb for 2 weeks postop. TING PLANT OPERATOR * Attachments The following attachments cannot be sent through Care Everywhere. * Type 2 Diabetes in Adults (AfterCare(R) Instructions(ER/ED)) (Fijian) * Laparoscopic Cholecystectomy (Discharge Care) (Fijian) documented in this encounter Medications at Time of Discharge acetaminophen (TYLENOL) 325 mg tabletIndications:Fev er,Pain Take 2 tablets (650 mg total) by mouth every 4 (four) hours as needed for pain, headaches or fever 10/22/2023 blood glucose diagnostic (glucose blood) stripIndications:Type 2 diabetes mellitus with hyperglycemia, without long-term current use of insulin (HCC) Use as directed to check blood glucose 4 times per day 100 each 11 02/08/2023 blood-glucose meter kitIndications:Type 2 diabetes mellitus with hyperglycemia, without long-term current use of insulin (HCC) Use as directed to check blood glucose four times per day 1 kit 02/08/2023 insulin syringe-needle U-100 1 mL 31 gauge x 5/16 syringe Use to inject 1-4 times daily as directed. 300 each 4 02/15/2023 lancets miscIndications:diabe ayan Use as directed to check blood glucose 4 times per day 200 each 3 02/08/2023 pen needle, diabetic 31 gauge x 5/16 needleIndications:Typ e 2 diabetes mellitus with hyperglycemia, without long-term current use of insulin ([facility]) Use to inject 1-4 times daily as directed. 300 each 4 02/08/2023 HYDROcodone-acetamino phen (NORCO) 5-325 mg per tabletIndications:Kuldip n Take 2 tablets by mouth every 6 (six) hours as needed for pain for up to 5 days 30 tablet 10/22/2023 10/27/19 24 fenofibrate nanocrystallized (TRICOR) 145 mg tabletIndications:Hyp ertriglyceridemia Take 1 tablet (145 mg total) by mouth daily 90 tablet 3 02/10/2023 03/19/20 24 insulin glargine (LANTUS, SEMGLEE) 100 unit/mL vial for injectionIndications: Type 2 diabetes mellitus with hyperglycemia, without long-term current use of insulin ([facility]) Inject 50 Units under the skin nightly 60 mL 3 05/05/2023 03/19/20 24 insulin lispro (HumaLOG, ADMELOG) 100 unit/mL vial for injection Inject 20 Units under the skin 3 (three) times a day before meals 03/19/20 24 metFORMIN XR (GLUCOPHAGE XR) 500 mg 24 hr tabletIndications:Typ e 2 diabetes mellitus with hyperglycemia, without long-term current use of insulin ([facility]) Take 3 tablets nightly. E11.65 270 tablet 3 05/05/2023 11/21/[address] (PROTONIX) 40 mg EC tablet Take 1 tablet (40 mg total) by mouth daily as needed 01/17/20 24 rosuvastatin (CRESTOR) 20 mg tabletIndications:Hyp ertriglyceridemia Take 1 tablet (20 mg total) by mouth daily 90 tablet 3 02/10/2023 03/20/20 24 documented as of this encounter Ordered Prescriptions Prescription Sig Dispense Quantity Refills Last Filled Start Date End Date acetaminophen (TYLENOL) 325 mg tabletIndications: Fever,Pain Take 2 tablets (650 mg total) by mouth every 4 (four) hours as needed for pain, headaches or fever 10/22/2023 HYDROcodone-acetam inophen (NORCO) 5-325 mg per tabletIndications: Pain Take 2 tablets by mouth every 6 (six) hours as needed for pain for up to 5 days 30 tablet 10/22/2023 4 documented in this encounter Discharge Disposition Disposition Code Departure Means Destination Comment s Discharge to home or self care documented in this encounter Progress Notes * Foster Swenson MD - 10/22/2023 10:29 AM CST General Surgery Daily Post-op Progres Note Patient: Jose Roberto Pack 43 y.o.male Date: 10/22/2023 Primary: A Admit Date: 10/21/2023 Attending: John Lamar MD LOS: 1 DATE OF SURGERY: 10/21/2023 SUBJECTIVE: Tolerating diet. No complaints Current Facility-Administered Medications: acetaminophen (TYLENOL) tablet 650 mg, 650 mg, oral, Q4H PRN, Edmundo James MD Carrier Fluids for Secondary Infusion - 0.9% Sodium Chloride, 30 mL, intravenous, PRN, Edmundo James MD Carrier Fluids for Secondary Infusion - 0.9% Sodium Chloride, 30 mL, intravenous, PRN, Edmundo James MD dextrose (GLUTOSE) 40 % gel 15 g, 15 g, oral, Q15 Min PRN OR dextrose (D10W) 10% bolus 250 mL, 250 mL, intravenous, Q15 Min PRN, Edmundo James MD enoxaparin (LOVENOX) syringe 40 mg, 40 mg, subcutaneous, Daily, Edmundo James MD, 40 mg at 10/22/23934 fenofibrate nanocrystallized (TRICOR) tablet 145 mg, 145 mg, oral, Nightly, Edmundo James MD, 145 mg at 10/21/232051 glucagon injection 1 mg, 1 mg, intramuscular, Q30 Min PRN, Edmundo James MD HYDROcodone-acetaminophen (NORCO) 5-325 mg per tablet 2 tablet, 2 tablet, oral, Q6H PRN, Edmundo James MD, 2 tablet at 10/22/23 06 insulin glargine (LANTUS, SEMGLEE) 100 unit/mL injection 40 Units, 40 Units, subcutaneous, Nightly,Edmundo James MD, 40 Units at 10/21/232052 insulin lispro (HumaLOG, ADMELOG) 100 unit/mL injection 0-5 Units, 0-5 Units, subcutaneous, Q4H KELY, Edmundo James MD, 2 Units at 10/22/23933 ketorolac (TORADOL) 30 mg/mL (1 mL) injection 15 mg, 15 mg, intravenous, Q6H PRN, Edmundo James MD Lactated Ringer's (LR) infusion, 125 mL/hr, intravenous, Continuous, Jose Roberto Mckeon MD, Last Rate: 125 mL/hr at 10/21/23 1717, 125 mL/hr at 10/21/23 171 morphine injection 2 mg, 2 mg, intravenous, Q3H PRN, Edmundo James MD, 2 mg at 10/21/23 2211 ondansetron ODT (ZOFRAN-ODT) disintegrating tablet 4 mg, 4 mg, oral, Q6H PRN OR ondansetron (ZOFRAN) injection 4 mg, 4 mg, intravenous, Q6H PRN, Edmundo James MD pantoprazole DR (PROTONIX) extended release tablet 40 mg, 40 mg, oral, Daily, Edmundo James MD, 40 mg at 01/27/24 0935 piperacillin-tazobactam (ZOSYN) 3.375 gram/115 mL in sodium chloride 0.9% (premix) 3.375 g, 3.375 g, intravenous, Q8H Jacob EDEG Kevin T., MD, Last Rate: 28.8 mL/hr at 10/22/23 0625, 3.375 g at 10/22/23 0625 ramelteon (ROZEREM) tablet 8 mg, 8 mg, oral, Nightly PRN, Edmundo James MD rosuvastatin (CRESTOR) tablet 20 mg, 20 mg, oral, Nightly, Edmundo James MD, 20 mg at sodium chloride 0.9% flush 0.5-20 mL, 0.5-20 mL, intra-catheter, Q8H Jacob EDGE Kevin T., MD sodium chloride 0.9% flush 0.5-20 mL, 0.5-20 mL, intra-catheter, PRN, Edmundo James MD sodium chloride 0.9% flush 0.5-20 mL, 0.5-20 mL, intra-catheter, Q8H Jacob EDGE Kevin T., MD sodium chloride 0.9% flush 0.5-20 mL, 0.5-20 mL, intra-catheter, PRN, Edmundo James MD OBJECTIVE: 24hr Min/Max: Temp Min: 36.2 ??C (97.1 ??F) Max: 37.4 ??C (99.3 ??F) Pulse Min: 76 Max: 96 BP Min: 99/67 Max: 138/93 Resp Min: 14 Max: 22 SpO2 Min: 95 % Max: 100 % Most Recent : Vitals: 10/22/23 0722 BP: 126/95 Pulse: 82 Resp: 16 Temp: 36.8 ??C (98.2 ??F) SpO2: 96% Exam: Alert and oriented no acute distress abdomen is soft nontender MACI drain serosanguineous fluidno bile Lab/Radiology/Diagnostic Review: WBC Date Value Ref Range Status 10/22/2023 13.0 (H) 3.8 - 9.9 K/cumm Final Comment: Testing performed by: [facility], [address] [place] [address]., [id number] 10/21/2023 8.8 3.8 - 9.9 K/cumm Final Comment: Testing performed by: [facility] [address] [place] [address]., [id number] Hgb Date Value Ref Range Status 10/22/2023 12.9 (L) 13.0 - 17.5 g/dL Final Comment: Testing performed by: [facility] [address] [place] [address]., [id number] 10/21/2023 14.9 13.0 - 17.5 g/dL Final Comment: Testing performed by: [facility] [address] [place] [address]., [id number] Hct Date Value Ref Range Status 10/22/2023 36.3 (L) 38.9 - 50.3 % Final Comment: Testing performed by: [facility] [address] [place] [address]., [id number] 10/21/2023 41.4 38.9 - 50.3 % Final Comment: Testing performed by: [facility] [address] [place] [address]., [id number] Plt Date Value Ref Range Status 10/22/2023 274 150 - 400 K/cumm Final Comment: Testing performed by: [facility] [address] [place] [address]., [id number] 10/21/2023 316 150 - 400 K/cumm Final Comment: Testing performed by: [facility] [address] [place] [address]., [id number] AST Date Value Ref Range Status 10/22/2023 92 (H) 10 - 50 Units/L Final Comment: Testing performed by: [facility] [address] [place] [address]., [id number] 10/21/2023 <5 (L) 10 - 50 Units/L Final Comment: HEMOLYZED: Hemolysis interferes with the above test. Lipemic specimen Testing performed by: [facility] [address] [place] [address]., [id number] ALT Date Value Ref Range Status 10/22/2023 134 (H) 7 - 55 Units/L Final Comment: Testing performed by: [facility] [address] [place] [address]., [id number] 10/21/2023 52 7 - 55 Units/L Final Comment: Lipemic specimen Testing performed by: [facility], [address] [place] [address]., [id number] Alk phos Date Value Ref Range Status 10/22/2023 72 40 - 130 Units/L Final Comment: Testing performed by: [address] [id number] 10/21/2023 89 40 - 130 Units/L Final Comment: Testing performed by: [address] [id number] Albumin Date Value Ref Range Status 10/22/2023 3.9 3.5 - 5.0 g/dL Final Comment: Testing performed by: [address] [id number] 10/21/2023 4.2 3.5 - 5.0 g/dL Final Comment: Testing performed by: [address] [id number] Lipase Date Value Ref Range Status 10/21/2023 26 10 - 99 Units/L Final Comment: Testing performed by: [address] [id number] 03/30/2023 57 10 - 99 Units/L Final Comment: Testing performed by: [address] [id number] ASSESSMENT: 1 Day Post-Op s/p Procedure(s): LAPAROSCOPIC CHOLECYSTECTOMY Active Problems: Type 2 diabetes mellitus with hyperglycemia, with long-term current use of insulin ([facility] ([facility]) Mixed hyperlipidemia RUQ pain Calculus of gallbladder with acute cholecystitis without obstruction PLAN: Overall doing well. DC drain. Okay for discharge home. Foster Swenson MD 10/22/2023 This examination was transcribed using the Ev[employer] IP voice recognition system without human mail technician. In an effort to expedite patient care, this report has not been adjusted for typographical, grammatical, and syntax by a trained medical care manager. TING PLANT OPERATOR documented in this encounter H&P Notes * Sandra Valladares PA - 10/21/2023 10:59 AM CST Images from the original note were not included. History and Physical Date of Service: 10/21/2023 Date of Admission:10/21/2023 Primary Care Physician: Preston Moulton, PA [phone] CHIEF COMPLAINT: Patient is a 43 y.o. male with a PMHx significant for acute pancreatitis, type 2 diabetes. Presentswith complaint of right upper quadrant pain since 02:30 HPI: Patient reports last night before he went to bed he had [employer] pizza. He reports 02:30 he was awakened with upper abdominal pain. He states he has felt bloated. He denies nausea, vomiting, fever or chills. He states he was told he had gallstones about a year ago but has not had any problems. No chest pain or shortness of breath. Patient currently rates his pain at 5/10 History provided by patient Past Medical History: Diagnosis Date Abdominal pain 02/10/[address] of the abdomen 02/23/2023 Acute pancreatitis Diabetes mellitus (HCC) Diabetic ketoacidosis without coma associated with other specified diabetes mellitus (HCC) 02/10/2023 Elevated glucose 03/05/2021 Vision changes 02/23/2023 History reviewed. No pertinent surgical history. Medications Prior to Admission Medication Sig Dispense Refill Last Dose blood glucose diagnostic (glucose blood) strip Use as directed to check blood glucose 4 times per day 100 each 11 blood-glucose meter kit Use as directed to check blood glucose four times per day 1 kit 0 fenofibrate nanocrystallized (TRICOR) 145 mg tablet Take 1 tablet (145 mg total) by mouth daily (Patient taking differently: Take 1 tablet (145 mg total) by mouth nightly) 90 tablet 3 10/20/2023 insulin glargine (LANTUS, SEMGLEE) 100 unit/mL vial for injection Inject 50 Units under the skin nightly 60 mL 3 10/20/2023 insulin lispro (HumaLOG, ADMELOG) 100 unit/mL vial for injection Inject 20 Units under the skin 3 (three) times a day before meals insulin syringe-needle U-100 1 mL 31 gauge x 5/16 syringe Use to inject 1-4 times daily as directed. 300 each 4 lancets misc Use as directed to check blood glucose 4 times per day 200 each 3 metFORMIN XR (GLUCOPHAGE XR) 500 mg 24 hr tablet Take 3 tablets nightly. E11.65 270 tablet 3 10/20/[address] (PROTONIX) 40 mg EC tablet Take 1 tablet (40 mg total) by mouth daily as needed pen needle, diabetic 31 gauge x 5/16 needle Use to inject 1-4 times daily as directed. 300 each 4 rosuvastatin (CRESTOR) 20 mg tablet Take 1 tablet (20 mg total) by mouth daily (Patient taking differently: Take 1 tablet (20 mg total) by mouth nightly) 90 tablet 3 10/20/2023 No Known Allergies Social History Tobacco Use Smoking status: Never Smokeless tobacco: None Substance and Sexual Activity Drug use: Never Sexual activity: Defer Alcohol Use: Unknown (04/06/2023) AUDIT-C Frequency of Alcohol Consumption: Monthly or less Average Number of Drinks: 1 or 2 Frequency of Binge Drinking: Not on file Family History Problem Relation Age of Onset Cancer Mother Diabetes Mother No Known Problems Father Hypertension Brother OBJECTIVE: Vitals: Arrival Vitals Temp 10/21/23 0353 36.8 ??C (98.2 ??F) Pulse 10/21/23 0353 78 Resp 10/21/23 0353 18 BP 10/21/23 0353 (!) 173/116 SpO2 10/21/23 035 98 % Temp src 10/21/23 035 Oral Heart Rate Source 10/21/23 043 Monitor Patient Position -- BP Location -- FiO2 (%) -- O2 Therapy for the past 12 hrs: O2 Therapy 10/21/23 0845 None (Room air) 10/21/23 0620 None (Room air) 10/21/23 0430 None (Room air) 10/21/23 0353 None (Room air) Most Recent : Vitals: 10/21/23 0430 10/21/23 0620 10/21/23 0805 10/21/23 0845 BP: (!) 152/102 (!) 156/107 138/94 142/99 Pulse: 73 73 76 89 Resp: 18 18 18 Temp: 36.1 ??C (96.9 ??F) TempSrc: Temporal SpO2: 99% 99% 97% 97% Weight: Height: No intake/output data recorded. No intake/output data recorded. Physical Exam: Physical Exam Vitals and nursing note reviewed. Constitutional: General: He is in acute distress. Appearance: He is well-developed. HENT: Head: Normocephalic and atraumatic. Eyes: General: No scleral icterus. Right eye: No discharge. Left eye: No discharge. Conjunctiva/sclera: Conjunctivae normal. Pupils: Pupils are equal, round, and reactive to light. Neck: Thyroid: No thyromegaly. Cardiovascular: Rate and Rhythm: Normal rate and regular rhythm. Heart sounds: Normal heart sounds. No murmur heard. No friction rub. No gallop. Pulmonary: Effort: Pulmonary effort is normal. No respiratory distress. Breath sounds: Normal breath sounds. No wheezing or rales. Chest: Chest wall: No tenderness. Abdominal: General: Bowel sounds are normal. There is no distension. Palpations: Abdomen is soft. Tenderness: There is abdominal tenderness. There is no guarding or rebound. Hernia: No hernia is present. Comments: Tender to epigastric region Musculoskeletal: General: No tenderness or deformity. Normal range of motion. Cervical back: Normal range of motion and neck supple. Right lower leg: No edema. Left lower leg: No edema. Lymphadenopathy: Cervical: No cervical adenopathy. Skin: General: Skin is warm and dry. Capillary Refill: Capillary refill takes less than 2 seconds. Findings: No rash. Neurological: Mental Status: He is alert and oriented to person, place, and time. Sensory: No sensory deficit. Psychiatric: Behavior: Behavior normal. Thought Content: Thought content normal. Judgment: Judgment normal. Lab/Radiology/Diagnostic Review: Recent Results (from the past 24 hour(s)) CBC with auto differential Collection Time: 10/21/23 4:02 AM Result Value Ref Range WBC 8.8 3.8 - 9.9 K/cumm Hgb 14.9 13.0 - 17.5 g/dL Hct 41.4 38.9 - 50.3 % Plt 316 150 - 400 K/cumm MPV 10.3 9.1 - 12.3 fL RBC 4.90 4.30 - 5.80 M/cumm MCV 84.5 81.3 - 96.4 fL MCH 30.4 27.1 - 33.3 pg MCHC 36.0 (H) 32.3 - 35.7 g/dL RDW CV 12.7 11.1 - 14.9 % RDW SD 38.9 35.7 - 48.1 fL NRBC abs 0.00 0.00 - 0.01 K/cumm Comprehensive metabolic panel Collection Time: 10/21/23 4:02 AM Result Value Ref Range Sodium 137 135 - 145 mmol/L Potassium, pl 3.6 3.3 - 4.9 mmol/L Chloride 100 97 - 110 mmol/L CO2 24 22 - 32 mmol/L Anion gap 13 2 - 15 mmol/L BUN 11 6 - 25 mg/dL Creatinine 0.90 0.80 - 1.30 mg/dL Glucose 291 (H) 70 - 199 mg/dL Calcium 9.4 8.5 - 10.3 mg/dL Bilirubin, total 0.3 0.1 - 1.2 mg/dL Protein, pl 7.2 6.5 - 8.5 g/dL Albumin 4.2 3.5 - 5.0 g/dL Alk phos 89 40 - 130 Units/L ALT 52 7 - 55 Units/L AST <5 (L) 10 - 50 Units/L Lipase Collection Time: 10/21/23 4:02 AM Result Value Ref Range Lipase 26 10 - 99 Units/L Differential, auto Collection Time: 10/21/23 4:02 AM Result Value Ref Range Neutrophil abs 5.1 1.5 - 6.5 K/cumm Imm gran abs 0.1 0.0 - 0.1 K/cumm Lymphocyte abs 2.4 0.8 - 3.3 K/cumm Monocyte abs 0.8 0.2 - 0.8 K/cumm Eosinophil abs 0.4 0.0 - 0.5 K/cumm Basophil abs 0.1 0.0 - 0.1 K/cumm Neutrophil pct 58.1 % Imm gran pct 0.7 % Lymphocyte pct 27.7 % Monocyte pct 8.7 % Eosinophil pct 4.1 % Basophil pct 0.7 % eGFR Collection Time: 10/21/23 4:02 AM Result Value Ref Range eGFR 107 mL/min/1.73 m2 Urinalysis reflex to microscopic and culture Urine Collection Time: 10/21/23 5:21 AM Specimen: Urine Result Value Ref Range Color, ur Yellow Yellow Clarity, ur Cloudy (A) Clear Specific gravity, ur 1.031 (H) 1.003 - 1.030 pH, urine 6.5 Protein, ur ql Negative Negative Glucose, ur ql 4+ (A) Negative Ketones, ur Negative Negative Bilirubin, ur Negative Negative Blood, ur Negative Negative Urobilinogen, ur <2.0 <2.0 mg/dL Nitrite, ur Negative Negative Leukocyte esterase, ur Negative Negative UA reflex comment Reflex conditions for microscopic UA and culture not met. POCT glucose Collection Time: 10/21/23 8:58 AM Result Value Ref Range Glucose, POC 256 (H) 70 - 199 mg/dL Glucose comment 1 Use This Result POCT glucose Collection Time: 10/21/23 10:09 AM Result Value Ref Range Glucose, POC 236 (H) 70 - 199 mg/dL Glucose comment [address] Abdomen Pelvis W Contrast Result Date: 10/21/2023 Narrative: EXAM DESCRIPTION: CT ABDOMEN PELVIS W CONTRAST REASON FOR STUDY: ruq abd pain Pt c/o upper right quadrant pain radiating to back, pt states Im pretty sure its my gallbladder , pt states was seen here for same pain and was told would likely have to have gallbladder, pt states was given follow up info but was told by ED MD just to wait till I was having pain again and come through ED it would be faster TECHNIQUE: CT scan of the abdomen and pelvis performed with intravenous and without oral contrast using helical scanning technique with dynamic intravenous contrast injection. Reconstructed coronal and sagittal MPR images reviewed. All images stored on PACS. Automated exposure control was used as a dose optimization technique for this examination. CONTRAST TYPE/DOSE: 90mL of IOVERSOL 350 MG IODINE/ML INTRAVENOUS SYRINGE injected via intravenous COMPARISON: CT of the abdomen and pelvis of March 30, 2023. REFERENCE: Per ACR white paper recommendations, unless otherwise specifiedno follow-up imaging is recommended for incidental renal and adrenal lesions per consensus recommendations based on imaging criteria. Further lab evaluation could be pursued based on clinical findings. FINDINGS: LOWER CHEST: The lung bases are clear. LIVER: There is diffuse decreased attenuation ofthe liver consistent with diffuse hepatic steatosis. GALLBLADDER: The gallbladder is mildly distended. There are noncalcified stones versus sludge balls seen in the gallbladder neck measuring up to 14 mm in diameter. BILE DUCTS: No intrahepatic or extrahepatic ductal dilatation. PANCREAS: Normal. SPLEEN: Normal size. No focal lesions. ADRENALS: Normal. KIDNEYS/URINARY TRACT: No identified significant cystic or solid masses. No visualized stones. No hydronephrosis or hydroureter. Urinary bladderis unremarkable. VASCULATURE: No acute abnormality seen. No abdominal aortic aneurysm. GI: The stomach appears normal. There is no significant small bowel dilation or visible thickening. There are scattered diverticula in the descending and sigmoid colon. The appendix is normal. PERITONEUM/MESENTERY: No ascites or free air. LYMPH NODES: There are no enlarged lymph nodes seen by CT size criteria. REPRODUCTIVE: No significant abnormality. MUSCULOSKELETAL: No significant abnormality. OTHER: No other abnormality. IMPRESSION: Noncalcified stones versus sludge balls seen in the gallbladder neck measuring up to 14 mm in diameter. The gallbladder is mildly distended. If there is clinical concern for acute cholecystitis, consider follow-up right upper quadrant ultrasound. Diffuse hepatic steatosis. Scattered colonic diverticula. No CT evidence of acute diverticulitis. THIS IS AN ELECTRONICALLY VERIFIED FINAL REPORT 10/21/2023 6:53 AM - Electronically signed by Renae Patel M.D. SN: Report ID: [id number] Reading Location: [place] [id number] ASSESSMENT/PLAN: Active Problems: RUQ pain Calculus of gallbladder with acute cholecystitis without obstruction Type 2 diabetes mellitus with hyperglycemia, with long-term current use of insulin ([facility]/HCC) (HCC) Mixed hyperlipidemia Resolved Problems: No resolved hospital problems. 1. Right upper quadrant pain/gallstones with acute cholecystitis-CT of abdomen and pelvis with contrast shows noncalcified stones versus sludge in the gallbladder neck measuring up to 14 mm in diameter. Gallbladder mildly distended. Possible acute cholecystitis do right upper quadrant ultrasound if needed. LFTs are within normal range. However patient's symptoms are consistent with acute cholecystitis. Ultrasound was not performed. Dr. James surgeon was consulted. Patient was started on Zosyn4.5 g IV. Will continue 3.375 g IV q.8 hours postoperatively. The patient had not received anythingfor pain in the ER. He declines it now as he is getting ready to go to surgery. He has not nauseous. Postop orders will be per Dr. James. Continue Protonix 40 mg daily starting tomorrow. 2. Type 2 diabetes with hyperglycemia-patient's initial blood sugar was 291. I will check a hemoglobin A1c. He is on Lantus 50 units nightly will decrease this to 40 while he is hospitalized. As patient is currently NPO will place on an NPO sliding scale for now and adjust as needed. Diet will be as tolerated postoperatively per Dr. James 3. Hyperlipidemia-continue Crestor 20 mg nightly Full Code Spoke with the patient regarding diagnosis, treatment and plan. He agrees with the plan. Advance Care Planning In the event of a cardiopulmonary arrest the patient would like everything done to save his life. He is a full code. ESTIMATED LENGTH OF STAY: > 2 midnigths My total encounter time on 10/21/2023 was 55 minutes which was spent in the activities documented inthe note. This includes time spent prior to the visit and after the visit in direct care of the patient. This time does not include time spent in any separately reportable services. Medical Decision Making Complexity: moderate DVT prophylaxis:[employer] Voice recognition software [employer] Direct may have been used to dictate and transcribe this document. Sole Leveling Machine Operator variances may occur. Despite proofreading, typographical errors may occur. ALFREDITO Monson 10/21/2023 11:04 AM For patients or family members viewing this note through [id number]: This note was written as a communication tool between healthcare providers and may contain technical language, terminology and abbreviations that is difficult to interpret without advanced medical training. If you have questions or concerns regarding what is written in this note, please request to speak with the primary medical team taking care of you or your family member. Cosigned by John Lamar MD at 10/21/2023 6:05 PM TREATING PLANT OPERATOR TING PLANT OPERATOR TING PLANT OPERATOR documented in this encounter Consult Notes * Edmundo James MD - 10/21/2023 7:56 AM CST Jose Roberto Pack 43 y.o. male Date of Service 10/21/2023 Preston Moulton PA No ref. provider found Reason for Consult: Abdominal pain, gallstones CC: Abdominal pain HPI: The patient is a 43-year-old male who has a diabetic who comes in with his 2nd episode of epigastric right upper quadrant pain. His last episode was last summer. This when started in the middle of the night woke him up at 2:00 a.m. the in his epigastric area radiates to his back. He would somenausea but no vomiting. His pain is better but it is still there. He had a CT scan which showed a distended gallbladder with gallstones. He was some slightly elevated blood sugars. He denies any shortness of breath or chest pain. No fevers or chills. PMH: Past Medical History: Diagnosis Date Abdominal pain 02/10/[address] of the abdomen 02/23/2023 Acute pancreatitis Diabetes mellitus (HCC) Diabetic ketoacidosis without coma associated with other specified diabetes mellitus (HCC) 02/10/2023 Elevated glucose 03/05/2021 Vision changes 02/23/2023 PSH: History reviewed. No pertinent surgical history. Allergies: No Known Allergies Medications: No current facility-administered medications for this encounter. Current Outpatient Medications Medication Sig Dispense Refill blood glucose diagnostic (glucose blood) strip Use as directed to check blood glucose 4 times per day 100 each 11 blood-glucose meter kit Use as directed to check blood glucose four times per day 1 kit 0 fenofibrate nanocrystallized (TRICOR) 145 mg tablet Take 1 tablet (145 mg total) by mouth daily 90 tablet 3 insulin glargine (LANTUS, SEMGLEE) 100 unit/mL vial for injection Inject 50 Units under the skin nightly 60 mL 3 insulin lispro (HumaLOG) 100 unit/mL pen for injection Inject 17 Units under the skin 3 (three) times a day before meals E11.65 45 mL 3 insulin syringe-needle U-100 1 mL 31 gauge x 5/16 syringe Use to inject 1-4 times daily as directed. 300 each 4 lancets misc Use as directed to check blood glucose 4 times per day 200 each 3 metFORMIN XR (GLUCOPHAGE XR) 500 mg 24 hr tablet Take 3 tablets nightly. E11.65 [address] (PROTONIX) 40 mg EC tablet Take 1 tablet (40 mg total) by mouth 2 (two) times a day60 tablet [address] (PROTONIX) 40 mg EC tablet Take 1 tablet (40 mg total) by mouth 2 (two) times a day60 tablet 3 pen needle, diabetic 31 gauge x 5/16 needle Use to inject 1-4 times daily as directed. 300 each 4 rosuvastatin (CRESTOR) 20 mg tablet Take 1 tablet (20 mg total) by mouth daily 90 tablet 3 No current facility-administered medications on file prior to encounter. Current Outpatient Medications on File Prior to Encounter Medication Sig Dispense Refill blood glucose diagnostic (glucose blood) strip Use as directed to check blood glucose 4 times per day 100 each 11 blood-glucose meter kit Use as directed to check blood glucose four times per day 1 kit 0 fenofibrate nanocrystallized (TRICOR) 145 mg tablet Take 1 tablet (145 mg total) by mouth daily 90 tablet 3 insulin glargine (LANTUS, SEMGLEE) 100 unit/mL vial for injection Inject 50 Units under the skin nightly 60 mL 3 insulin lispro (HumaLOG) 100 unit/mL pen for injection Inject 17 Units under the skin 3 (three) times a day before meals E11.65 45 mL 3 insulin syringe-needle U-100 1 mL 31 gauge x 5/16 syringe Use to inject 1-4 times daily as directed. 300 each 4 lancets misc Use as directed to check blood glucose 4 times per day 200 each 3 metFORMIN XR (GLUCOPHAGE XR) 500 mg 24 hr tablet Take 3 tablets nightly. E11.65 [address] (PROTONIX) 40 mg EC tablet Take 1 tablet (40 mg total) by mouth 2 (two) times a day60 tablet [address] (PROTONIX) 40 mg EC tablet Take 1 tablet (40 mg total) by mouth 2 (two) times a day60 tablet 3 pen needle, diabetic 31 gauge x 5/16 needle Use to inject 1-4 times daily as directed. 300 each 4 rosuvastatin (CRESTOR) 20 mg tablet Take 1 tablet (20 mg total) by mouth daily 90 tablet 3 Family Hx: Family History Problem Relation Age of Onset Cancer Mother Diabetes Mother No Known Problems Father Hypertension Brother Social Hx: Social History Tobacco Use Smoking status: Never Smokeless tobacco: None Substance and Sexual Activity Drug use: Never Sexual activity: Defer Alcohol Use: Unknown (04/06/2023) AUDIT-C Frequency of Alcohol Consumption: Monthly or less Average Number of Drinks: 1 or 2 Frequency of Binge Drinking: Not on file Review of Symptoms: 12 point ROS is negative aside from that mentioned in HPI and PMH/PSH; PHYSICAL EXAM: Blood pressure (!) 156/107, pulse 73, temperature 36.8 ??C (98.2 ??F), temperature source Oral, resp. rate 18, height 172.7 cm (5' 8 ), weight 78.9 kg (173 lb 15.1 oz), SpO2 99%. Body mass index is 26.45 kg/m??. GEN: Well developed in no acute distress SKIN: No obvious lesions, masses or rash; no jaundice HEENT: Neck supple, no masses CHEST: Unlabored breathing, no accessory muscle use HEART: Regular rhythm, 2+ radial, DP, PT pulses ABDOMEN: soft, tender in the right upper quadrant with some guarding nondistended, no masses EXT: No clubbing, cyanosis; edema NEURO: No focal deficit, sensation intact LYMPHATICS: No palpable lymphadenopathy BREAST: deferred RECTAL: deferred LABS: I reviewed the recent laboratory results Recent Labs Lab Units 10/21/23 0402 WBC K/cumm 8.8 HEMOGLOBIN g/dL 14.9 HEMATOCRIT % 41.4 CO2 mmol/L 24 AST Units/L <5* ALT Units/L 52 LIPASE Units/L 26 IMAGING: I reviewed the digital images of the patient's imaging studies Results for orders placed during the hospital encounter of 03/30/23 US RUQ Narrative EXAM DESCRIPTION: US RUQ REASON FOR STUDY: abnormal CT scan, concern cholecystitis TECHNIQUE: Ultrasound of the right upper quadrant of the abdomen was performed with grayscale and color doppler. COMPARISON: 02/10/2023 FINDINGS: PANCREAS: Visualized portions of the pancreas are within normal limits. Portions of the pancreatic body and tail are obscured due to bowel gas. LIVER: The liver is increased in echogenicity. There is no definite sonographic evidence of focal hepatic lesion. There is documentation of hepatopetal flow in the portal vein. GALLBLADDER: There is cholelithiasis and/or gallbladder sludge. There is borderline edematous gallbladder wall thickening measuring 0.3 cm in thickness with a trace amount of pericholecystic fluid. There is a negative sonographic Chen's sign. BILIARY: There is no intrahepatic or extrahepatic biliary ductal dilatation. Common bile duct measures 0.4 cm in diameter. RIGHT KIDNEY: Normal size. Normal echogenicity. No solid mass or cyst. No hydronephrosis. Measures 14.0 x 4.7 x 4.4 cm. OTHER: No other significant findings. Impression Cholelithiasis and/or gallbladder sludge with borderline edematous gallbladder wall thickening and a trace amount of pericholecystic fluid, and findings may be reactive to the pancreatitis, however cholecystitis can not be entirely excluded. Further evaluation with HIDA scan is recommended as clinically indicated. Diffuse hepatic steatosis. THIS IS AN ELECTRONICALLY VERIFIED FINAL REPORT 03/30/2023 2:41 PM - Electronically signed by Mark Rob D.O. PS: PS Report ID: [id number] Reading Location: [place] [address] IMPRESSION: Symptomatic cholelithiasis Patient Active Problem List Diagnosis Other headache syndrome Acute non-recurrent maxillary sinusitis Palpitations Vasovagal syncope Elevated systolic blood pressure reading without diagnosis of hypertension Annual physical exam Type 2 diabetes mellitus with hyperglycemia, without long-term current use of insulin (CMS/HCC) (HCC) Bandemia Liver function abnormality Snoring Stress Mixed hyperlipidemia Calculus of gallbladder without cholecystitis without obstruction PLAN: Laparoscopic cholecystectomy with operative cholangiogram. I discussed the surgery and risk as well. Risks include but not limited to infection, bleeding, injury to bowel or vasculatures, injury to common bile duct, cystic stump leak, possibly conversion open, possibly of subtotal cholecystectomy, possibility of GI dysfunction postoperatively, possible cardiac and pulmonary conditions. He understood these risks and wished to proceed. Edmundo James MD 10/21/2023 7:56 AM This examination was transcribed using the Evolve IP voice recognition system without human mail technician. In an effort to expedite patient care, this report has not been adjusted for typographical, grammatical, and syntax by a trained medical care manager. TING PLANT OPERATOR documented in this encounter Nursing Notes * Angie Laird, RN - 10/22/2023 2:00 PM CST Patient discharged to home accompanied by significant other. Discharge instructions reviewed with patient, provided opportunity for questions, all questions answered. Instructed to call for any problems or concerns. Taken to discharge door in wheelchair by rn. TING PLANT OPERATOR * Angie Laird, RN - 10/22/2023 1:00 PM CST Lap sites to abdomen dry and intact. Maci drain removed from right side of abdomen, tolerated fair. Dressing applied with 4x4 and telfa island dressing. TING PLANT OPERATOR documented in this encounter ED Notes * Jassi Sandeep Vinay, DO - 10/21/2023 7:03 AM CST HPI Chief Complaint Patient presents with Abdominal Pain HPI 7:03 AM Jose Roberto Pack is a 43 y.o. male presenting to the ED c/o epigastric abdominal pain that will come up around 230 this morning. He states pain is coming in spasms. He denies any fevers, nausea,vomiting, diarrhea. He notes history of similar symptoms last summer, was told it was his gallbladder in the hospital, but did not want to have surgery at that time. Patient History: Past Medical History: Diagnosis Date Abdominal pain 02/10/[address] of the abdomen 02/23/2023 Acute pancreatitis Diabetes mellitus (HCC) Diabetic ketoacidosis without coma associated with other specified diabetes mellitus (HCC) 02/10/2023 Elevated glucose 03/05/2021 Vision changes 02/23/2023 History reviewed. No pertinent surgical history. Family History Problem Relation Age of Onset Cancer Mother Diabetes Mother No Known Problems Father Hypertension Brother Social History Tobacco Use Smoking status: Never Smokeless tobacco: None Substance and Sexual Activity Drug use: Never Sexual activity: Defer Alcohol Use: Unknown (04/06/2023) AUDIT-C Frequency of Alcohol Consumption: Monthly or less Average Number of Drinks: 1 or 2 Frequency of Binge Drinking: Not on file Current Facility-Administered Medications: piperacillin-tazobactam (ZOSYN) 3.375 gram/115 mL in sodium chloride 0.9% (premix) 3.375 g, 3.375 g, intravenous, Q8H KELY piperacillin-tazobactam (ZOSYN) 4.5 g in sodium chloride 0.9% 100 mL IVPB, 4.5 g, intravenous, Once Current Outpatient Medications: blood glucose diagnostic (glucose blood) strip blood-glucose meter kit fenofibrate nanocrystallized (TRICOR) 145 mg tablet insulin glargine (LANTUS, SEMGLEE) 100 unit/mL vial for injection insulin lispro (HumaLOG) 100 unit/mL pen for injection insulin syringe-needle U-100 1 mL 31 gauge x 5/16 syringe lancets misc metFORMIN XR (GLUCOPHAGE XR) 500 mg [address] (PROTONIX) 40 mg EC tablet pantoprazole DR (PROTONIX) 40 mg EC tablet pen needle, diabetic 31 gauge x 5/16 needle rosuvastatin (CRESTOR) 20 mg tablet Review of Systems Review of Systems All other systems reviewed and are negative. Physical Exam ED Triage Vitals Temp Pulse Resp BP SpO2 10/21/233 10/21/23 0353 10/21/233 10/21/2335210/21/23352 36.8 ??C (98.2 ??F) 78 18 (!) 173/116 98 % Temp src Heart Rate Source Patient Position BP Location FiO2 (%) 10/21/23 0353 10/21/23 0430 -- -- -- Oral Monitor Height Height Method Weight Weight Method 10/21/2335210/21/2335210/21/2335210/21/23352 1.727 m (5' 8 ) Stated 78.9 kg (173 lb 15.1 oz) Standing scale Physical Exam Vitals and nursing note reviewed. Constitutional: General: He is not in acute distress. Appearance: Normal appearance. He is not ill-appearing. HENT: Head: Normocephalic and atraumatic. Nose: Nose normal. Mouth/Throat: Mouth: Mucous membranes are moist. Eyes: Pupils: Pupils are equal, round, and reactive to light. Cardiovascular: Rate and Rhythm: Normal rate and regular rhythm. Heart sounds: Normal heart sounds. Pulmonary: Effort: Pulmonary effort is normal. Breath sounds: Normal breath sounds. Abdominal: General: Abdomen is flat. Palpations: Abdomen is soft. Tenderness: There is abdominal tenderness in the epigastric area. There is no guarding or rebound. Negative signs include Chen's sign. Musculoskeletal: General: No swelling. Cervical back: Neck supple. Skin: General: Skin is warm and dry. Neurological: Mental Status: He is alert. Mental status is at baseline. Psychiatric: Mood and Affect: Mood normal. Behavior: Behavior normal. Procedures MDM Labs Reviewed URINALYSIS AND REFLEX TO MICROSCOPIC AND CULTURE - Abnormal Result Value Color, ur Yellow Clarity, ur Cloudy (*) Specific gravity, ur 1.031 (*) pH, urine 6.5 Protein, ur ql Negative Glucose, ur ql 4+ (*) Ketones, ur Negative Bilirubin, ur Negative Blood, ur Negative Urobilinogen, ur <2.0 Nitrite, ur Negative Leukocyte esterase, ur Negative UA reflex comment Value: Reflex conditions for microscopic UA and culture not met. CBC WITH AUTO DIFFERENTIAL - Abnormal WBC 8.8 Hgb 14.9 Hct 41.4 Plt 316 MPV 10.3 RBC 4.90 MCV 84.5 MCH 30.4 MCHC 36.0 (*) RDW CV 12.7 RDW SD 38.9 NRBC abs 0.00 COMPREHENSIVE METABOLIC PANEL - Abnormal Sodium 137 Potassium, pl 3.6 Chloride 100 CO2 24 Anion gap 13 BUN 11 Creatinine 0.90 Glucose 291 (*) Calcium 9.4 Bilirubin, total 0.3 Protein, pl 7.2 Albumin 4.2 Alk phos 89 ALT 52 AST <5 (*) LIPASE Lipase 26 DIFFERENTIAL AUTO Neutrophil abs 5.1 Imm gran abs 0.1 Lymphocyte abs 2.4 Monocyte abs 0.8 Eosinophil abs 0.4 Basophil abs 0.1 Neutrophil pct 58.1 Imm gran pct 0.7 Lymphocyte pct 27.7 Monocyte pct 8.7 Eosinophil pct 4.1 Basophil pct 0.[address] Abdomen Pelvis W Contrast Final Result BP (!) 156/107 Pulse 73 Temp 36.8 ??C (98.2 ??F) (Oral) Resp 18 Ht 172.7 cm (5' 8 ) Wt 78.9 kg (173 lb 15.1 oz) SpO2 99% BMI 26.45 kg/m?? MDM Amount and/or Complexity of Data Reviewed Clinical lab tests: reviewed Tests in the radiology section of CPT??: reviewed ED Course as of 10/21/23 0810 Time: 10/21 0716 Comment: CT: Noncalcified stones versus sludge balls seen in the gallbladder neck measuring up to 14 mm in diameter. The gallbladder is mildly distended. If there is clinical concern for acute cholecystitis, consider follow-up right upper quadrant ultrasound. Diffuse hepatic steatosis. Scattered colonic diverticula. No CT evidence of acute diverticulitis. By: Sandeep Keene DO Time: 10/21 715 Comment: I reviewed previous CT scan, ultrasound, and HIDA scan from last year. There was suspicionfor acute cholecystitis on CT and ultrasound, HIDA scan showed delayed filling and patient was senthome. Patient's symptoms today could be consistent with cholecystitis/biliary colic. I discussed with Dr. James who will review history and images. By: Sandeep Keene DO Time: 10/21 08 Comment: Dr. James had discussion with patient and will admit for operative management. Admissiondiscussed with Dr. Lamar. By: Sandeep Keene DO This examination was transcribed using the Evolve IP voice recognition system without human mail technician. In an effort to expedite patient care, this report has not been adjusted for typographical, grammatical, and syntax by a trained medical care manager. Clinical Impression: Cholecystitis Hypertension, unspecified type Hyperglycemia Sandeep Keene DO 10/21/23 0810 TING PLANT OPERATOR * Celestina Hernandez RN - 10/21/2023 3:49 AM CST Pt c/o upper right quadrant pain radiating to back, pt states Im pretty sure its my gallbladder , pt states was seen here for same pain and was told would likely have to have gallbladder, pt states was given follow up info but was told by ED MD just to wait till I was having pain again and come through ED it would be faster TING PLANT OPERATOR documented in this encounter Miscellaneous Notes * Plan of Care - Holly Stephenson RN - 10/22/2023 3:27 AM CST Problem: Health Behavior: Goal: Understanding of discharge needs will improve Outcome: Progressing Problem: Lack of Knowledge Goal: Knowledge of disease or condition will improve Outcome: Progressing Problem: Lack of Knowledge: Goal: Ability to develop a pain control plan will improve Outcome: Progressing Goal: Ability to identify pain intensity on a pain scale and rate it consistently will improve Outcome: Progressing Goal: Ability to notify healthcare provider of pain before it becomes unmanageable or unbearable will improve Outcome: Progressing Problem: Medication: Goal: Satisfaction with pain management regimen will improve Outcome: Progressing Problem: Sensory: Goal: Ability to identify factors that increase the pain will improve Outcome: Progressing Goal: Pain level will decrease Outcome: Progressing Goals: Summary: Assessment of patient???s baseline is established at the beginning of the shift in flowsheets. Patient reassessed per order, unexpected findings and/or deviations from baseline are captured in flowsheets. Frequent safety checks and comfort rounds provided. Orders and/or nursing care completed as indicated. Patient monitored for response to interventions and treatments as documented in flowsheets. TING PLANT OPERATOR * Plan of Care - Fadia No RN - 10/21/2023 3:57 PM CST Problem: Health Behavior: Goal: Understanding of discharge needs will improve Outcome: Progressing Problem: Lack of Knowledge Goal: Knowledge of disease or condition will improve Outcome: Progressing TING PLANT OPERATOR * Op Note - Edmundo James MD - 10/21/2023 11:19 AM CST OP NOTE Jose Roberto Pack 10/21/2023 Pre-operative Diagnosis: Symptomatic cholelithiasis Post-operative Diagnosis: Acute cholecystitis Procedure: Laparoscopic Cholecystectomy with Intra-op Cholangiogram Anesthesia: General Surgeon: Edmundo James MD Interpretive Naturalist: [email or web address] Nozzleman: Nikia Bryan RN Scrub Relief: Rona Garces RN Scrub: Zora Hernandez RN EXTERMINATOR HELPER TERMITE: Amish Serna CRNFA Anesthesia: General Anesthesiologist: Jose Roberto Mckeon MD CHECKER BAKERY PRODUCTS: Shi Newman CRNA; Ivana Avila CRNA Specimen: Gallbladder with multiple stones Drains: None EBL: 20 cc Complications: None Findings: Acute cholecystitis with large stone obstructing neck. Cholangiogram was performed and noobvious filling defects on the cholangiogram. Operative Details: Please refer to the history and physical for the indications of the procedure as well as additionaldetail. Preoperatively, I described the procedure in detail. I discussed the risks of surgery including issues with anesthesia, infection, bleeding, injury to vascular or visceral structures, injury to otherorgans, injury to the common bile duct, possibility of a bile leak, possibility of a cystic duct stump leak, the possibility of converting to an open procedure, possibility of a subtotal cholecystectomy, possibility of cardiac and pulmonary complications, possibility of DVT as well as postoperativeissues related to diarrhea or GI dysfunction and/or persistent symptoms. The patient understood allthese risks. All questions were answered and the patient wished to proceed. Once consent was obtained, the patient was brought back to the operating room. General anesthesia was given. SCDs were placed. Prophylactic IV antibiotics were given preoperatively. The patient was then prepped and draped in a sterile fashion. I then injected local anesthetic. I made a 5 mm incision near the umbilicus. I then inserted a 5 mm Visiport trocar carefully into the peritoneal cavity under direct vision, in standard fashion. I visualized the insertion and once in the correct position,the pneumoperitoneum was created with the insufflation of CO2. Once the abdomen was insufflated, I then inspected the abdomen and found no problems from insertion of the trocar. I then placed a 11 mmtrocar in the epigastric region under direct vision. I then asked Anesthesia to patient the placement in reverse Trendelenburg and right-side up. Two additional 5 mm trocars were placed under direct vision in the right upper quadrant. There was no injury from insertion of the trocars. At this point, the gallbladder was identified. Half of the gallbladder was intrahepatic. I was ableto pull up the neck of the gallbladder. It was retracted superiorly and the infundibulum laterally.I then meticulously dissected out the neck of the gallbladder and obtained a critical view. The neck of the gallbladder/cystic duct was somewhat dilated. Identified the cystic duct and artery as wellas the inferior edge of the cystic plate. At this point, two structures were seen entering the gallbladder. I could not find an area in the neck/duct was small enough to put a clip across. Therefore I used a Alcantara clamp to perform a cholangiogram. The cholangiogram was performed. The cystic duct cherie led after dye got around a large stone in the neck of the gallbladder and emptying into the common bile duct. Both hepatic ducts filled. There were no obvious filling defects and good emptying in theduodenum. At this point, the cholangiogram catheter was removed. I made an opening in the neck of the gallbladder and milked the large stone stuck in the neck of the gallbladder out. I then cut the neck of the gallbladder and placed PDS endo-loops over the cystic duct. Once these were tied down securely the artery was clipped and divided. The gallbladder is in taken off the liver bed. The portionthat was intrahepatic was very difficult to see the posterior wall and I had to leave a small area of the posterior wall in place. The gallbladder was sent to pathology for evaluation. I then inspected the liver bed. Hemostasis had been obtained. I washed up the liver bed and suctioned out the irrigation. I left a [address] I then used a suture Passer to pass an 0 Vicryl suture to close the epigastric port site. the other trocars were removed and the CO2 was evacuated. There was no bleeding from the trocar sites. I then closed the skin with 4-0 Monocryl and Dermabond was applied. The patient tolerated the procedure well. There were no complications. There was a correct sponge, needle and instrument count reported at the end of the procedure. The patient is going to the recovery room in a stable condition. Edmundo James MD 2:23 PM TING PLANT OPERATOR documented in this encounter Plan of Treatment Not on file documented as of this encounter Procedures Procedure Name Priority Date/Time Associated Diagnosis Comments POCT GLUCOSE DEVICE Routine 10/22/2023 8 :19 AM TREATING PLANT OPERATOR EGFR Routine 10/22/2023 5:05 AM TREATING PLANT OPERATOR DIFFERENTIAL AUTO Routine 10/22/2023 5:0 5 AM TREATING PLANT OPERATOR CBC WITH AUTO DIFFERENTIAL Routine 10/22/2023 5:05 AM TREATING PLANT OPERATOR COMPREHENSIVE METABOLIC PANEL Routine 10/22/2023 5:05 AM TREATING PLANT OPERATOR POCT GLUCOSE DEVICE Routine 10/21/2023 1 0:10 PM TREATING PLANT OPERATOR POCT GLUCOSE DEVICE Routine 10/21/2023 8 :09 PM TREATING PLANT OPERATOR POCT GLUCOSE DEVICE Routine 10/21/2023 5 :26 PM TREATING PLANT OPERATOR POCT GLUCOSE DEVICE Routine 10/21/2023 1 2:57 PM TREATING PLANT OPERATOR CHOLANGIOGRAM INTRAOPERATIVE IP Routine 10/21/2023 12:03 PM TREATING PLANT OPERATOR SURGICAL PATHOLOGY Routine 10/21/2023 11 :40 AM TREATING PLANT OPERATOR Acute cholecystitis LAPAROSCOPIC CHOLECYSTECTOMY 10/21/2023 10:51 AM TREATING PLANT OPERATOR POCT GLUCOSE DEVICE Routine 10/21/2023 1 0:09 AM TREATING PLANT OPERATOR POCT GLUCOSE DEVICE Routine 10/21/2023 8 :58 AM TREATING PLANT OPERATOR CT ABDOMEN PELVIS W CONTRAST ED 10/21/2023 6:44 AM TREATING PLANT OPERATOR URINALYSIS AND REFLEX TO MICROSCOPIC AND CULTURE STAT 10/21/2023 5:21 AM TREATING PLANT OPERATOR EGFR STAT 10/21/2023 4:02 AM TREATING PLANT OPERATOR DIFFERENTIAL AUTO STAT 10/21/2023 4:0 2 AM TREATING PLANT OPERATOR CBC WITH AUTO DIFFERENTIAL STAT 10/21/2023 4:02 AM TREATING PLANT OPERATOR LIPASE STAT 10/21/2023 4:02 AM TREATING PLANT OPERATOR COMPREHENSIVE METABOLIC PANEL STAT 10/21/2023 4:02 AM TREATING PLANT OPERATOR documented in this encounter Results * (ABNORMAL) POCT glucose (10/22/2023 8:19 AM TREATING PLANT OPERATOR) Pathologist [facility] Glucose, POC 204(H) 70 - 199 mg/dL ELLIOT Comment:Testing performed by : [facility], [address] [place] [address], [place]., [address] Blood 10/22/2023 8:19 AM TREATING PLANT OPERATOR 10/22/2023 8:19 AM TREATING PLANT OPERATOR us John Lamar MD LAB POCT ORDERABLES - DEV ICE Final Result [facility] [address] [facility] Department of Laboratories [id number] * eGFR (10/22/2023 5:05 AM TREATING PLANT OPERATOR) [facility] [address] eGFR 95 mL/min/1. 73 m2 ELLIOT HINES Comment: Interpretive Data Reference Interval Normal ?>/= [...] was last reviewed 2021. Testing performed by: [address] [address] Blood 10/22/2023 5:05 AM TREATING PLANT OPERATOR 10/22/2023 5:50 AM TREATING PLANT OPERATOR us Edmundo James MD LAB BLOOD ORDERABLES Final R esult ELLIOT [address] [facility] Department of Laboratories [id number] * (ABNORMAL) Differential, auto (10/22/2023 5:05 AM TREATING PLANT OPERATOR) Neutrophil abs 10.0(H) 1.5 - 6.5 K/cumm ELLIOT Comment:Testing performed by : [address] [address] Imm gran abs 0.1 0.0 - 0.1 K/cumm ELLIOT Comment:Testing performed by : [address] [address] Lymphocyte abs 1.7 0.8 - 3.3 K/cumm ELLIOT Comment:Testing performed by : [address] [address] Monocyte abs 1.2(H) 0.2 - 0.8 K/cumm ELLIOT Comment:Testing performed by : [address] [address] Eosinophil abs 0.0 0.0 - 0.5 K/cumm ELLIOT Comment:Testing performed by : [address] [address] Basophil abs 0.0 0.0 - 0.1 K/cumm ELLIOT Comment:Testing performed by : [address] [address] Neutrophil pct 77.1 % [facility] Comment: Interpretive Data Percent cell count reference ranges are not reported, since discordance with absolute values may lead to misinterpretation of CBC data. Current Interpretive Data was last revised on 2018. Testing performed by: [address] [address] Imm gran pct 0.4 % [facility] Comment: Interpretive Data Percent cell count reference ranges are not reported, since discordance with absolute values may lead to misinterpretation of CBC data. Current Interpretive Data was last revised on 2018. Testing performed by: [address] [address] Lymphocyte pct 13.0 % [facility] Comment: Interpretive Data Percent cell count reference ranges are not reported, since discordance with absolute values may lead to misinterpretation of CBC data. Current Interpretive Data was last revised on 2018. Testing performed by: [address] [address] Monocyte pct 9.1 % [facility] Comment: Interpretive Data Percent cell count reference ranges are not reported, since discordance with absolute values may lead to misinterpretation of CBC data. Current Interpretive Data was last revised on 2018. Testing performed by: [address] [address] Eosinophil pct 0.2 % [facility] Comment: Interpretive Data Percent cell count reference ranges are not reported, since discordance with absolute values may lead to misinterpretation of CBC data. Current Interpretive Data was last revised on 2018. Testing performed by: [address] [address] Basophil pct 0.2 % [facility] Comment: Interpretive Data Percent cell count reference ranges are not reported, since discordance with absolute values may lead to misinterpretation of CBC data. Current Interpretive Data was last revised on 2018. Testing performed by: [address] [address] Blood 10/22/2023 5:05 AM TREATING PLANT OPERATOR 10/22/2023 5:51 AM TREATING PLANT OPERATOR us Edmundo James MD LAB BLOOD ORDERABLES Final [facility] esult [facility] [address] [facility] Department of Laboratories [id number] * (ABNORMAL) CBC with auto differential (10/22/2023 5:05 AM TREATING PLANT OPERATOR) WBC 13.0(H) 3.8 - 9.9 K/cumm ELLIOT Comment:Testing performed by : [address] [address] Hgb 12.9(L) 13.0 - 17.5 g/dL ELLIOT Comment:Testing performed by : [address] [address] Hct 36.3(L) 38.9 - 50.3 % ELLIOT Comment:Testing performed by : [address] [address] Plt 274 150 - 400 K/cumm ELLIOT Comment:Testing performed by : [address] [address] MPV 9.8 9.1 - 12.3 fL ELLIOT Comment:Testing performed by : [address] [address] RBC 4.37 4.30 - 5.80 M/cumm ELLIOT Comment:Testing performed by : [address] [address] MCV 83.1 81.3 - 96.4 fL ELLIOT Comment:Testing performed by : [address] [address] MCH 29.5 27.1 - 33.3 pg ELLIOT HINES Comment:Testing performed by : [address], [address] MCHC 35.5 32.3 - 35.7 g/dL ELLIOT HINES Comment:Testing performed by : [address], [address] RDW CV 12.6 11.1 - 14.9 % ELLIOT Comment:Testing performed by : [address] [address] RDW SD 37.9 35.7 - 48.1 fL ELLIOT HINES Comment:Testing performed by : [address] [address] NRBC abs 0.00 0.00 - 0.01 K/cumm ELLIOT HINES Comment:Testing performed by : [address] [address] Blood 10/22/2023 5:05 AM TREATING PLANT OPERATOR 10/22/2023 5:51 AM TREATING PLANT OPERATOR us Edmundo James MD LAB BLOOD ORDERABLES Final R esult ELLIOT [address] [facility] Department of Laboratories [address] * (ABNORMAL) Comprehensive metabolic panel (10/22/2023 5:05 AM TREATING PLANT OPERATOR) Sodium 140 135 - 145 mmol/L ELLIOT HINES Comment:Testing performed by : [address] [address] Potassium, pl 4.1 3.3 - 4.9 mmol/L ELLIOT HINES Comment:Testing performed by : [address] [address] Chloride 105 97 - 110 mmol/L ELLIOT HINES Comment:Testing performed by : [address] [address] CO2 24 22 - 32 mmol/L ELLIOT Comment:Testing performed by : [address] [address] Anion gap 11 2 - 15 mmol/L ELLIOT Comment:Testing performed by : [address] [address] BUN 10 6 - 25 mg/dL ELLIOT HINES Comment:Testing performed by : [address] [address] Creatinine 1.00 0.80 - 1.30 mg/dL ELLIOT HINES Comment:Testing performed by : [address] [address] Glucose 248(H) 70 - 199 mg/dL [facility] Comment: Interpretive Data Fasting glucose [...] was last revised 2022. Testing performed by: [address] [address] Calcium 8.7 8.5 - 10.3 mg/dL ELLIOT Comment:Testing performed by : [address] [address] Bilirubin, total 0.6 0.1 - 1.2 mg/dL [facility] Comment:Testing performed by : [address] [address] Protein, pl 6.8 6.5 - 8.5 g/dL [facility] Comment:Testing performed by : [address] [address] Albumin 3.9 3.5 - 5.0 g/dL [facility] Comment:Testing performed by : [address] [address] Alk phos 72 40 - 130 Units/L [facility] Comment:Testing performed by : [address] [address] ALT 134(H) 7 - 55 Units/L [facility] Comment:Testing performed by : [address] [address] AST 92(H) 10 - 50 Units/L [facility] Comment:Testing performed by : [address] [address] Blood 10/22/2023 5:05 AM TREATING PLANT OPERATOR 10/22/2023 5:50 AM TREATING PLANT OPERATOR Edmundo James MD LAB BLOOD ORDERABLES Final R esult Performing Organization Address [facility] Co de Phone Number ELLIOT [address] [address] * (ABNORMAL) POCT glucose (10/21/2023 10:10 PM TREATING PLANT OPERATOR) Glucose, POC 316(H) 70 - 199 mg/dL ELLIOT Comment:Testing performed by : [address], [address] Glucose comment 1 Use This Result ELLIOT Comment:Testing performed by : [address], [address] Blood 10/21/2023 10:1 0 PM TREATING PLANT OPERATOR 10/21/2023 10:10 PM TREATING PLANT OPERATOR John Lamar MD LAB POCT ORDERABLES - DEV ICE Final Result Performing Organization Address [facility] de Phone Number ELLIOT [address] [address] * (ABNORMAL) POCT glucose (10/21/2023 8:09 PM TREATING PLANT OPERATOR) [facility] [address] Glucose, POC 409(H) 70 - 199 mg/dL ELLIOT Comment:Testing performed by : [address] [address] Glucose comment 1 Use This Result ELLIOT Comment:Testing performed by : [address] [address] Blood 10/21/2023 8:09 PM TREATING PLANT OPERATOR 10/21/2023 8:09 PM TREATING PLANT OPERATOR John Lamar MD LAB POCT ORDERABLES - DEV ICE Final Result Performing Organization Address [facility] Co de Phone Number ELLIOT [address] [address] * (ABNORMAL) POCT glucose (10/21/2023 5:26 PM TREATING PLANT OPERATOR) Glucose, POC 230(H) 70 - 199 mg/dL [facility] Comment:Testing performed by : [address] [address] Blood 10/21/2023 5:26 PM TREATING PLANT OPERATOR 10/21/2023 5:26 PM TREATING PLANT OPERATOR John Lamar MD LAB POCT ORDERABLES - DEV ICE Final Result Performing Organization Address [facility] Co de Phone Number [address] Laboratories [address] * (ABNORMAL) POCT glucose (10/21/2023 12:57 PM TREATING PLANT OPERATOR) Glucose, POC 249(H) 70 - 199 mg/dL [facility] Comment:Testing performed by : [address] [address] Blood 10/21/2023 12:5 7 PM TREATING PLANT OPERATOR 10/21/2023 12:57 PM TREATING PLANT OPERATOR John Lamar MD LAB POCT ORDERABLES - DEV ICE Final Result Performing Organization Address [facility] de Phone Number [address] [address] * [place] Cholangiogram Intraoperative (10/21/2023 12:03 PM TREATING PLANT OPERATOR) Anatomical Region Laterality Modality Body, Abdomen N/A Computed Radiogr aphy 10/21/2023 12:0 7 PM TREATING PLANT OPERATOR Narrative 10/21/2023 12:09 PM TREATING PLANT OPERATOR EXAM DESCRIPTION: ?? FL CHOLANGIOGRAM INTRAOPERATIVE REASON FOR STUDY: ?? Abdomen pain ?? 50 cc ?? COMPARISON: 10/21/2023 RADIATION DOSE: Dose: ??13 ?? mGy Reference Air Kerma (Ka,r) TECHNIQUE: Fluoro spot images were obtained in the OR from an intraoperative cholangiogram and saved to PACS. FINDINGS: There is opacification of the gallbladder, bile ducts, cystic duct remnant and second portion of the duodenum without evidence of fixed filling defect or significant extravasation. IMPRESSION: ?? Intraoperative cholangiogram. THIS IS AN ELECTRONICALLY VERIFIED FINAL REPORT 10/21/2023 12:09 PM - Electronically signed by ??Edmundo OSBORN: IRENA D: ??10/21/2023 12:09 PM T: ??10/21/2023 12:09 PM Report ID: [id number] Reading Location: ??[id number] Procedure Note Edmundo Tapia MD - 10/21/2023 EXAM DESCRIPTION: FL CHOLANGIOGRAM INTRAOPERATIVE REASON FOR STUDY: Abdomen pain 50 cc COMPARISON: 10/21/2023 RADIATION DOSE: Dose: 13 mGy Reference Air Kerma (Ka,r) TECHNIQUE: Fluoro spot images were obtained in the OR from anintraoperative cholangiogram and saved to PACS. FINDINGS: There is opacification of the gallbladder, bile ducts, cystic ductremnant and second portion of the duodenum without evidence of fixed fillingdefect or significant extravasation. IMPRESSION: Intraoperative cholangiogram. THIS IS AN ELECTRONICALLY VERIFIED FINAL REPORT 10/21/2023 12:09 PM - Electronically signed by Edmundo OSBORN: IRENA Report ID: [id number] Reading Location: [id number] us Edmundo James MD IMG FLUOROSCOPY PROCEDURES F inal Result * Surgical pathology (10/21/2023 11:40 AM TREATING PLANT OPERATOR) Tissue (Gallbladder) 10/21/2023 11:40 AM TREATING PLANT OPERATOR Narrative PATHOLOGY [facility] - 10/24/2023 4:23 PM TREATING PLANT OPERATOR [facility] Department of Pathology [address] [place] [address] ?? Note to Patients: ??This report may contain a detailed description of human tissue sent by a health care provider to the laboratory for pathologic evaluation. ??The content of this report is essential for diagnosis and may provide important critical findings. ??This information may be unfamiliar to patients to review without a medical professional present. ?? It is advised that the patient review this report in the presence of a health care provider who can answer questions and explain the details. Final Report Patient Name: JOSE ROBERTO PACK : ??1980 (Age: 43) Gender: ??M Address: ??[address], [place] [address] [facility] #: [id number] Service: Medical Location: Patient Type: E INPATIENT ? Taken: 10/21/2023 Received: 10/21/2023 Accessioned: 10/21/2023 Reported: 10/24/2023 Physician(s): Joseph Anne PA-C Diagnosis: A. Gallbladder, cholecystectomy: ? - Chronic cholecystitis with cholelithiasis ? - Cystic duct margin, negative for dysplasia or malignancy Alayna Foster M.D. Report Electronically Reviewed and Signed Out By ??Alayna Foster M.D. 10/24/2023 16:23:06 Specimen(s) Received: A: Gallbladder Microscopic Description: Unless gross-only is specified, the final diagnosis for each specimen is based on a microscopic examination of national account representative sections of each tissue sample Clinical History: The patient is a 43-year-old man with acute cholecystitis. ??Operative procedure: laparoscopic cholecystectomy. Gross Description Received in formalin, labeled with the patient? ? s identifiers and gallbladder and consists of a 5.4 x 3.0 x 2.1 cm markedly disrupted gallbladder with whitaker-pink, glistening serosa and a stapled neck, measuring 0.8 cm in diameter. ??The lumen is devoid of content. ??Found within the specimen container are seven black, multifaceted choleliths ranging from 0.8-1.5 cm. ??The mucosa is red-whitaker and finely granular, and the wall thickness averages 0.3 cm. ??Steamtable Worker sections to include the gallbladder neck resection margin and full-thickness sections from the neck, body and fundus are submitted. ?? Labeled A1. Jar M. ?? jjmhb/10/21/2023 14:43 AICHA Do, PA ([facility]) Microscopic slide review and interpretation for this case was performed at [facility], Department of Surgical Pathology, [address] [facility] [place] [id number], ??[place], [place] ??[address] ?? CLIA # [id number] us Edmundo James MD LAB PATHOLOGY ORDERABLES Fin al Result Performing Organization Address [facility] Co de Phone Number PATHOLOGY [facility] * (ABNORMAL) POCT glucose (10/21/2023 10:09 AM TREATING PLANT OPERATOR) Glucose, POC 236(H) 70 - 199 mg/dL ELLIOT Comment:Testing performed by : [address] [address] Glucose comment 1 Use This Result ELLIOT Comment:Testing performed by : [address] [address] Blood 10/21/2023 10:0 9 AM TREATING PLANT OPERATOR 10/21/2023 10:09 AM TREATING PLANT OPERATOR us John Lamar MD LAB POCT ORDERABLES - DEV ICE Final Result Performing Organization Address [facility] Co de Phone Number [place] [phone] [facility] Department of Laboratories [id number] * (ABNORMAL) POCT glucose (10/21/2023 8:58 AM TREATING PLANT OPERATOR) Glucose, POC 256(H) 70 - 199 mg/dL ELLIOT Comment:Testing performed by : [address] [address] Glucose comment 1 Use This Result ELLIOT Comment:Testing performed by : [address] [address] Blood 10/21/2023 8:58 AM TREATING PLANT OPERATOR 10/21/2023 8:58 AM TREATING PLANT OPERATOR us John Lamar MD LAB POCT ORDERABLES - DEV ICE Final Result ELLIOT [address] [facility] Department of Laboratories [address] * CT Abdomen Pelvis W Contrast (10/21/2023 6:44 AM TREATING PLANT OPERATOR) Anatomical Region Laterality Modality Body N/A Computed Tomogra phy 10/21/2023 6:50 AM TREATING PLANT OPERATOR Narrative 10/21/2023 6:53 AM TREATING PLANT OPERATOR EXAM DESCRIPTION: ?? CT ABDOMEN PELVIS W CONTRAST REASON FOR STUDY: ?? ruq abd pain ?? Pt c/o upper right quadrant pain radiating to back, pt states Im pretty sure its my gallbladder , pt states was seen here for same pain and was told would likely have to have gallbladder, pt states was given follow up info but was told by ED MD just ?? to wait till I was having pain again and come through ED it would be faster ? TECHNIQUE: CT scan of the abdomen and pelvis performed with intravenous and ?? without ??oral contrast using helical scanning technique with dynamic intravenous contrast injection. Reconstructed coronal and sagittal MPR images reviewed. All images stored on PACS. Automated exposure control was used as a dose optimization technique for this examination. CONTRAST TYPE/DOSE: ?? 90mL of IOVERSOL 350 MG IODINE/ML INTRAVENOUS SYRINGE ?? injected via ?? intravenous COMPARISON: ?? CT of the abdomen and pelvis of March 30, 2023. REFERENCE: Per ACR white paper recommendations, unless otherwise specified no follow-up imaging is recommended for incidental renal and adrenal lesions per consensus recommendations based on imaging criteria. Further lab evaluation could be pursued based on clinical findings. FINDINGS: LOWER CHEST: ??The lung bases are clear. ? LIVER: ??There is diffuse decreased attenuation of the liver consistent with diffuse hepatic steatosis. GALLBLADDER: ??The gallbladder is mildly distended. ??There are noncalcified stones versus sludge balls seen in the gallbladder neck measuring up to 14 mm in diameter. BILE DUCTS: ??No intrahepatic or extrahepatic ductal dilatation. PANCREAS: ??Normal. SPLEEN: ??Normal size. ??No focal lesions. ADRENALS: ??Normal. KIDNEYS/URINARY TRACT: ??No identified significant cystic or solid masses. No visualized stones. No hydronephrosis or hydroureter. ?? Urinary bladder is unremarkable. VASCULATURE: ??No acute abnormality seen. No abdominal aortic aneurysm. GI: ??The stomach appears normal. ?? There is no significant small bowel dilation or visible thickening. ?? There are scattered diverticula in the descending and sigmoid colon. ?The appendix is normal. PERITONEUM/MESENTERY: ??No ascites or free air. ? LYMPH NODES: ??There are no enlarged lymph nodes seen by CT size criteria. REPRODUCTIVE: ??No significant abnormality. MUSCULOSKELETAL: ??No significant abnormality. OTHER: ??No other abnormality. IMPRESSION: Noncalcified stones versus sludge balls seen in the gallbladder neck measuring up to 14 mm in diameter. The gallbladder is mildly distended. ??If there is clinical concern for acute cholecystitis, consider follow-up right upper quadrant ultrasound. Diffuse hepatic steatosis. Scattered colonic diverticula. No CT evidence of acute diverticulitis. THIS IS AN ELECTRONICALLY VERIFIED FINAL REPORT 10/21/2023 6:53 AM - Electronically signed by ??Renae Patel M.D. SN: D: ??10/21/2023 6:53 AM T: ??10/21/2023 6:53 AM Report ID: [id number] Reading Location: ??[id number] Procedure Note Renae Patel MD - 10/21/2023 EXAM DESCRIPTION: CT ABDOMEN PELVIS W CONTRAST REASON FOR STUDY: ruq abd pain Pt c/o upper right quadrant pain radiating to back, pt states Im prettysure its my gallbladder , pt states was seen here for same pain and was toldwould likely have to have gallbladder, pt states was given follow up info butwas told by ED MD just to wait till I was having pain again and comethrough ED it would be faster TECHNIQUE: CT scan of the abdomen and pelvis performed with intravenousand without oral contrast using helical scanning technique with dynamic intravenous contrast injection. Reconstructed coronal and sagittal MPRimages reviewed. All images stored on PACS. Automated exposure control was usedas a dose optimization technique for this examination. CONTRAST TYPE/DOSE: 90mL of IOVERSOL 350 MG IODINE/ML INTRAVENOUSSYRINGE injected via intravenous COMPARISON: CT of the abdomen and pelvis of March 30, 2023. REFERENCE: Per ACR white paper recommendations, unless otherwise specifiedno follow-up imaging is recommended for incidental renal and adrenal lesionsper consensus recommendations based on imaging criteria. Further labevaluation could be pursued based on clinical findings. FINDINGS: LOWER CHEST: The lung bases are clear. LIVER: There is diffuse decreased attenuation of the liver consistentwith diffuse hepatic steatosis. GALLBLADDER: The gallbladder is mildly distended. There are noncalcified stones versus sludge balls seen in the gallbladder neck measuring up to 14mm in diameter. BILE DUCTS: No intrahepatic or extrahepatic ductal dilatation. PANCREAS: Normal. SPLEEN: Normal size. No focal lesions. ADRENALS: Normal. KIDNEYS/URINARY TRACT: No identified significant cystic or solid masses.No visualized stones. No hydronephrosis or hydroureter. Urinary bladder is unremarkable. VASCULATURE: No acute abnormality seen. No abdominal aortic aneurysm. GI: The stomach appears normal. There is no significant small bowel dilation or visible thickening. There are scattered diverticula in the descending and sigmoid colon. The appendix is normal. PERITONEUM/MESENTERY: No ascites or free air. LYMPH NODES: There are no enlarged lymph nodes seen by CT size criteria. REPRODUCTIVE: No significant abnormality. MUSCULOSKELETAL: No significant abnormality. OTHER: No other abnormality. IMPRESSION: Noncalcified stones versus sludge balls seen in the gallbladder neck measuring up to 14 mm in diameter. The gallbladder is mildly distended.If there is clinical concern for acute cholecystitis, consider follow-upright upper quadrant ultrasound. Diffuse hepatic steatosis. Scattered colonic diverticula. No CT evidence of acute diverticulitis. THIS IS AN ELECTRONICALLY VERIFIED FINAL REPORT 10/21/2023 6:53 AM - Electronically signed by Renae Patel M.D. SN: Report ID: [id number] Reading Location: [place] [address] Mohsen Orona DO [facility] CT PROCEDURES Final Result * (ABNORMAL) Urinalysis reflex to microscopic and culture Urine (10/21/2023 5:21 AM TREATING PLANT OPERATOR) [facility] Signature Color, ur Yellow Yellow ELLIOT HINES Comment:Testing performed by : [facility], [address] [place] [address]., [address] Clarity, ur Cloudy(A) Clear ELLIOT Comment:Testing performed by : [address] [address] Specific gravity, ur 1.031(H) 1.003 - 1.030 ELLIOT Comment:Testing performed by : [address] [address] pH, urine 6.5 ELLIOT Comment: Interpretive Data ? Urine pH is affected by diet, medications, systemic acid-base disturbances, and renal tubular function. ??pH may affect urinary stone formation. ??For example, urine pH below 6.0 may help reduce the tendency for calcium phosphate stones and pH greater than 6.0 may reduce the tendency for uric acid stone formation. Source: [facility] [employer] Current Interpretive Data was last revised on 2017 Testing performed by: [address] [address] Protein, ur ql Negative Negative ELLIOT Comment:Testing performed by : [address] [address] Glucose, ur ql 4+(A) Negative ELLIOT Comment:Testing performed by : [address] [address] Ketones, ur Negative Negative ELLIOT Comment:Testing performed by : [address] [address] Bilirubin, ur Negative Negative ELLIOT Comment:Testing performed by : [address] [address] Blood, ur Negative Negative ELLIOT Comment:Testing performed by : [address] [address] Urobilinogen, ur <2.0 <2.0 mg/dL ELLIOT Comment:Testing performed by : [address] [address] Nitrite, ur Negative Negative ELLIOT Comment:Testing performed by : [address] [address] Leukocyte esterase, ur Negative Negative ELLIOT Comment:Testing performed by : [address] [address] UA reflex comment Reflex conditions for microscopic UA and culture not met. ELLIOT HINES Comment:Testing performed by : [facility], [address] [place] [address]., [address] Urine 10/21/2023 5:21 AM TREATING PLANT OPERATOR 10/21/2023 5:51 AM TREATING PLANT OPERATOR Sandeep Keene DO LAB MICROBIOLOGY - GENERAL ORDERABLES Final Result Performing Organization Address City/State/[facility] Co de Phone Number ELLIOT [address] [facility] Department of Laboratories [address] * eGFR (10/21/2023 4:02 AM TREATING PLANT OPERATOR) eGFR 107 mL/min/1. 73 m2 ELLIOT HINES Comment: Interpretive Data Reference Interval Normal ?>/= [...] was last reviewed 2021. Testing performed by: [facility], [address] [place] [address]., [address] Blood 10/21/2023 4:02 AM TREATING PLANT OPERATOR 10/21/2023 5:18 AM TREATING PLANT OPERATOR us Sandeep Keene DO LAB BLOOD ORDERABLES Final Result ELLIOT [address] [facility] Department of Laboratories [address] * Differential, auto (10/21/2023 4:02 AM TREATING PLANT OPERATOR) Neutrophil abs 5.1 1.5 - 6.5 K/cumm ELLIOT Comment:Testing performed by : [address] [address] Imm gran abs 0.1 0.0 - 0.1 K/cumm ELLIOT Comment:Testing performed by : [address] [address] Lymphocyte abs 2.4 0.8 - 3.3 K/cumm ELLIOT Comment:Testing performed by : [address] [address] Monocyte abs 0.8 0.2 - 0.8 K/cumm ELLIOT Comment:Testing performed by : [address] [address] Eosinophil abs 0.4 0.0 - 0.5 K/cumm ELLIOT Comment:Testing performed by : [address] [address] Basophil abs 0.1 0.0 - 0.1 K/cumm ELLIOT Comment:Testing performed by : [address] [address] Neutrophil pct 58.1 % ELLIOT Comment: Interpretive Data Percent cell count reference ranges are not reported, since discordance with absolute values may lead to misinterpretation of CBC data. Current Interpretive Data was last revised on 2018. Testing performed by: [address] [address] Imm gran pct 0.7 % ELLIOT Comment: Interpretive Data Percent cell count reference ranges are not reported, since discordance with absolute values may lead to misinterpretation of CBC data. Current Interpretive Data was last revised on 2018. Testing performed by: [address] [address] Lymphocyte pct 27.7 % [facility] Comment: Interpretive Data Percent cell count reference ranges are not reported, since discordance with absolute values may lead to misinterpretation of CBC data. Current Interpretive Data was last revised on 2018. Testing performed by: [address] [address] Monocyte pct 8.7 % [facility] Comment: Interpretive Data Percent cell count reference ranges are not reported, since discordance with absolute values may lead to misinterpretation of CBC data. Current Interpretive Data was last revised on 2018. Testing performed by: [address] [address] Eosinophil pct 4.1 % [facility] Comment: Interpretive Data Percent cell count reference ranges are not reported, since discordance with absolute values may lead to misinterpretation of CBC data. Current Interpretive Data was last revised on 2018. Testing performed by: [address] [address] Basophil pct 0.7 % ELLIOT Comment: Interpretive Data Percent cell count reference ranges are not reported, since discordance with absolute values may lead to misinterpretation of CBC data. Current Interpretive Data was last revised on 2018. Testing performed by: [address] [address] Blood 10/21/2023 4:02 AM TREATING PLANT OPERATOR 10/21/2023 5:06 AM TREATING PLANT OPERATOR us Sandeep Keene DO LAB BLOOD ORDERABLES Final Result [facility] [facility] Department of Laboratories [address] * Lipase (10/21/2023 4:02 AM TREATING PLANT OPERATOR) Lipase 26 10 - 99 Units/L ELLIOT Comment:Testing performed by : [address] [address] Blood (Blood, Venous) 10/21/2023 4:02 AM TREATING PLANT OPERATOR 10/21/2023 5:18 AM TREATING PLANT OPERATOR us Sandeep Keene DO LAB BLOOD ORDERABLES Final Result ELLIOT HINES [address] [facility] Department of Laboratories [address] * (ABNORMAL) Comprehensive metabolic panel (10/21/2023 4:02 AM TREATING PLANT OPERATOR) Sodium 137 135 - 145 mmol/L ELLIOT Comment:Testing performed by : [address] [address] Potassium, pl 3.6 3.3 - 4.9 mmol/L ELLIOT Comment:Testing performed by : [address] [address] Chloride 100 97 - 110 mmol/L ELLIOT Comment:Testing performed by : [address] [address] CO2 24 22 - 32 mmol/L ELLIOT Comment:Testing performed by : [address] [address] Anion gap 13 2 - 15 mmol/L ELLIOT Comment:Testing performed by : [address] [address] BUN 11 6 - 25 mg/dL ELLIOT Comment:Testing performed by : [address] [address] Creatinine 0.90 0.80 - 1.30 mg/dL ELLIOT Comment:Testing performed by : [address] [address] Glucose 291(H) 70 - 199 mg/dL ELLIOT Comment: Interpretive [...] was last revised 2022. Testing performed by: [address] [address] Calcium 9.4 8.5 - 10.3 mg/dL ELLIOT Comment:Testing performed by : [address] [address] Bilirubin, total 0.3 0.1 - 1.2 mg/dL ELLIOT Comment:Testing performed by : [address] [address] Protein, pl 7.2 6.5 - 8.5 g/dL ELLIOT Comment:Testing performed by : [address] [address] Albumin 4.2 3.5 - 5.0 g/dL ELLIOT Comment:Testing performed by : [address] [address] Alk phos 89 40 - 130 Units/L ELLIOT Comment:Testing performed by : [address] [address] ALT 52 7 - 55 Units/L ELLIOT Comment: Lipemic specimen Testing performed by: [address] [address] AST <5(L) 10 - 50 Units/L ELLIOT Comment: HEMOLYZED: Hemolysis interferes with the above test. Lipemic specimen Testing performed by: [address] [id number] Blood 10/21/2023 4:02 AM TREATING PLANT OPERATOR 10/21/2023 5:18 AM TREATING PLANT OPERATOR us Sandeep Keene DO LAB BLOOD ORDERABLES Final Result ELLIOT HINES [id number] [facility] Department of Laboratories [id number] * (ABNORMAL) CBC with auto differential (10/21/2023 4:02 AM TREATING PLANT OPERATOR) WBC 8.8 3.8 - 9.9 K/cumm ELLIOT HINES Comment:Testing performed by : [address] [address] Hgb 14.9 13.0 - 17.5 g/dL ELLIOT Comment:Testing performed by : [address] [address] Hct 41.4 38.9 - 50.3 % ELLIOT Comment:Testing performed by : [address] [address] Plt 316 150 - 400 K/cumm ELLIOT Comment:Testing performed by : [address] [address] MPV 10.3 9.1 - 12.3 fL ELLIOT Comment:Testing performed by : [address], [address] RBC 4.90 4.30 - 5.80 M/cumm ELLIOT Comment:Testing performed by : [address] [address] MCV 84.5 81.3 - 96.4 fL ELLIOT Comment:Testing performed by : [address] [address] MCH 30.4 27.1 - 33.3 pg ELLIOT Comment:Testing performed by : [address] [address] MCHC 36.0(H) 32.3 - 35.7 g/dL ELLIOT Comment:Testing performed by : [address], [address] RDW CV 12.7 11.1 - 14.9 % ELLIOT Comment:Testing performed by : [address] [address] RDW SD 38.9 35.7 - 48.1 fL ELLIOT Comment:Testing performed by : [address], [address] NRBC abs 0.00 0.00 - 0.01 K/cumm ELLIOT Comment:Testing performed by : [address] [address] Blood (Blood, Venous) 10/21/2023 4:02 AM TREATING PLANT OPERATOR 10/21/2023 5:06 AM TREATING PLANT OPERATOR us Sandeep Keene DO LAB BLOOD ORDERABLES Final Result ELLIOT MH [address] [facility] Department of Laboratories [id number] documented in this encounter Visit Diagnoses Not on filedocumented in this encounter Admitting Diagnoses Diagnosis Cholecystitis Cholecystitis, unspecified documented in this encounter Administered Medications Inactive Administered Medications - up to 3 most recent administrations Medication Order MAR Action Action Date Dose Rate Site BUPivacaine-EPINEPHrine (MARCAINE with EPI) 0.5 %-1:200,000 preservative free injection As needed, Starting on Tue10/21/23 at 1218, Intra-Op Given 10/21/2023 12:18 PM TREATING PLANT OPERATOR 15 mL dextrose (D10W) 10% bolus 250 mL 250 mL, intravenous, at 1,000 mL/hr, Administer over 15 Minutes, Every 15 min PRN, blood glucose less than 70 mg/dL and UNABLE to swallow/take PO glucose/juice., Starting on Tue10/21/23 at 0912, After treatment for hypoglycemia, recheck BG followed by treatment every 15 minutes until the BG is greater than 100 mg/dL. Then check BG 1 hour post treatment. If BG is less than 100 mg/dL, repeat Q15 minute BG checks and treatment. Call MD for each episode of hypoglycemia., Indications: hypoglycemic disorderIndications:hypogl ycemic disorder dextrose (GLUTOSE) 40 % gel 15 g 15 g, oral, Every 15 min PRN, low blood sugar, blood glucose less than 70 mg/dL, Starting on Tue10/21/23 at 0912, If patient is alert and able to eat/drink, give 15 gm glucose or one juice (4 fluid ounces) NOT ORANGE JUICE. After treatment for hypoglycemia, recheck BG followed by treatment every 15 minutes until the BG is greater than 100 mg/dL. Then check BG 1 hour post-treatment. If BG is less than 100 mg/dL, repeat Q15 minute BG checks and treatment. Call MD for each episode of hypoglycemia. RAISE DRILLER STATES GLUTOSE-15 CONTAINS GLUCOSE 40% W/W (50% W/V), Indications: hypoglycemic disorderIndications:hypogl ycemic disorder enoxaparin (LOVENOX) syringe 40 mg 40 mg, subcutaneous, Daily, First dose on Tue10/22/23 at 0900, Indications: Deep Vein Thrombosis PreventionIndications:Deep Vein Thrombosis Prevention Given 10/22/2023 9:35 AM TREATING PLANT OPERATOR 40 mg Right Lower Abdomen fenofibrate nanocrystallized (TRICOR) tablet 145 mg 145 mg, oral, Nightly, First dose on Tue10/21/23 at 2100 Given 10/21/2023 8:52 PM TREATING PLANT OPERATOR 145 mg glucagon injection 1 mg 1 mg, intramuscular, Every 30 min PRN, low blood sugar, blood glucose less than 70 mg/dL AND no IV access AND unable to take PO glucose/juice., Starting on Tue10/21/23 at 0912, After Glucagon is administered, position patient on side if possible to avoid aspiration. Obtain IV access. Follow glucagon treatment with glucose treatment or IV dextrose. After treatment for hypoglycemia, recheck BG followed by treatment every 15 minutes until the BG is greater than 100 mg/dL. Then check BG 1 hour post treatment. If BG is less than 100 mg/dL, repeat Q15 minute BG checks and treatment. Call MD for each episode of hypoglycemia. Reconstitute 1 mg vial with 1 mL SWFI. Use immediately following reconstitution. HYDROcodone-acetaminophen (NORCO) 5-325 mg per tablet 2 tablet 2 tablet, oral, Every 6 hours PRN, 2nd line for pain, Starting on Tue10/21/23 at 1557, Indications: PainIndications:Pain Given 10/22/2023 11:45 AM TREATING PLANT OPERATOR 2 tablets Given 10/22/2023 6:34 AM TREATING PLANT OPERATOR 2 tablets Given 10/21/2023 5:25 PM TREATING PLANT OPERATOR 2 tablets insulin glargine (LANTUS, SEMGLEE) 100 unit/mL injection 40 Units 40 Units, subcutaneous, Nightly, First dose on Tue10/21/23 at 2100, Do not mix with other insulins Given 10/21/2023 8:53 PM TREATING PLANT OPERATOR 40 Units Left Upper Arm insulin lispro (HumaLOG, ADMELOG) 100 unit/mL injection 0-5 Units 0-5 Units, subcutaneous, Every 4 hours scheduled, First dose on Tue10/21/23 at 1200, Blood glucose mg/dL: 149 or less: No insulin 150-199: add 1 unit 200-249: add 2 units 250-299: add 3 units 300-349: add 4 units and notify physician for adjustment of insulin orders. 350-399: add 5 units and notify physician for adjustment of insulin orders. Over 400: Notify physician for adjustment of insulin orders. Do NOT hold for NPO Status, Indications: Diabetes MellitusIndications:Diabetes Mellitus Given 10/22/2023 9:34 AM TREATING PLANT OPERATOR 2 Units Right Upper Arm Given 10/21/2023 10:23 PM TREATING PLANT OPERATOR 4 Units R ight Upper Arm Given 10/21/2023 6:04 PM TREATING PLANT OPERATOR 2 Units Ri ght Upper Arm iohexoL (OMNIPAQUE) 240 mg iodine/mL injection solution As needed, Starting on Tue10/21/23 at 1219, Intra-Op Given 10/21/2023 12:19 PM TREATING PLANT OPERATOR 50 mL ketorolac (TORADOL) 30 mg/mL (1 mL) injection 15 mg 15 mg, intravenous, Every 6 hours PRN, 1st line for pain, Starting on Tue10/21/23 at 1557, For 5 days, For Adult IV push, administer over 15 seconds Given 10/22/2023 1:11 PM TREATING PLANT OPERATOR 15 mg Lactated Ringer's (LR) infusion 125 mL/hr, intravenous, Continuous, Starting on Tue10/21/23 at 1330, Phase I New Bag 10/21/2023 5:17 PM TREATING PLANT OPERATOR 125 mL/hr 125 mL/hr morphine injection 2 mg 2 mg, intravenous, Administer over 4 Minutes, Every 3 hours PRN, 3rd line for pain, Starting on Tue10/21/23 at 1557, Indications: PainIndications:Pain Given 10/21/2023 10:11 PM TREATING PLANT OPERATOR 2 mg ondansetron (ZOFRAN) injection 4 mg 4 mg, intravenous, Administer over 2 Minutes, Every 6 hours PRN, nausea, vomiting, if not tolerating PO, Starting on Tue10/21/23 at 1058, Indications: Nausea and VomitingIndications:Nausea and Vomiting ondansetron ODT (ZOFRAN-ODT) disintegrating tablet 4 mg 4 mg, oral, Every 6 hours PRN, nausea, vomiting, Starting on Tue10/21/23 at 1058, Indications: Nausea and VomitingIndications:Nausea and Vomiting pantoprazole DR (PROTONIX) extended release tablet 40 mg 40 mg, oral, Daily, First dose on Tue10/22/23 at 0900, Do not crush, chew, cut, dissolve, open or otherwise manipulate tablet/capsule., Indications: Treatment of Non-Bleeding Gastric DisorderIndications:Treatment of Non-Bleeding Gastric Disorder Given 10/22/2023 9:35 AM TREATING PLANT OPERATOR 40 mg piperacillin-tazobactam (ZOSYN) 3.375 gram/115 mL in sodium chloride 0.9% (premix) 3.375 g 3.375 g, intravenous, at 28.8 mL/hr, Administer over 4 Hours, Every 8 hours scheduled, First dose on Tue10/21/23 at 1700, Dose and frequency are based on a 4hr infusion time and may be inappropriate for shorter infusions. Please infuse via secondary line to ensure complete administration., Indications: Abdominal/Pelvic InfectionIndications:Abdominal/Pe lvic Infection New Bag 10/22/2023 6:25 AM TREATING PLANT OPERATOR 3.375 g 28.8 mL/hr New Bag 10/21/2023 10:11 PM TREATING PLANT OPERATOR 3.375 g 28.8 mL/hr New Bag 10/21/2023 5:16 PM TREATING PLANT OPERATOR 3.375 g 28.8 mL/hr rosuvastatin (CRESTOR) tablet 20 mg 20 mg, oral, Nightly, First dose on Tue10/21/23 at 2100 Given 10/21/2023 8:52 PM TREATING PLANT OPERATOR 20 mg documented in this encounter Discontinued Medications Medication Sig Discontinue Reason Start Date End Da te pantoprazole DR (PROTONIX) 40 mg EC tabletIndications:Stress Ulcer Prophylaxis Take 1 tablet (40 mg total) by mouth 2 (two) times a day 05/09/2023 10/21/[address] (PROTONIX) 40 mg EC tabletIndications:Stress Ulcer Prophylaxis Take 1 tablet (40 mg total) by mouth 2 (two) times a day 05/05/2023 10/21/2023 insulin lispro (HumaLOG) 100 unit/mL pen for injectionIndications:type 2 diabetes mellitus Inject 17 Units under the skin 3 (three) times a day before meals E11.65 05/05/2023 10/21/2023 documented as of this encounter Historical Medications * This list may reflect changes made after this encounter. insulin lispro (HumaLOG, ADMELOG) 100 unit/mL vial for injection Inject 20 Units under the skin 3 (three) times a day before meals 03/19/[address] (PROTONIX) 40 mg EC tablet Take 1 tablet (40 mg total) by mouth daily as needed 01/17/2024 added in this encounter Active and Recently Administered Medications Times are shown in TREATING PLANT OPERATOR. Scheduled Medication Order 10/20/2023 10/21/2023 10/22/2023 acetaminophen (TYLENOL) tablet 975 mg (COMPLETED) 975 mg, oral, Once, On Tue10/21/23 at 1000, For 1 dose, Pre-Op 0930 (Canceled Entry - Provider: Tanvi Rivera RN)0935 (Given - Provider: Johnie Whitman, YUDELKA) enoxaparin (LOVENOX) syringe 40 mg 40 mg, subcutaneous, Daily, First dose on Tue10/22/23 at 0900, Indications: Deep Vein Thrombosis Prevention 0935 (Given - Provider: Angie Laird RN) famotidine (PEPCID) tablet 20 mg (COMPLETED) 20 mg, oral, Once, On Tue10/21/23 at 1000, For 1 dose, Pre-Op 0930 (Canceled Entry - Provider: Tanvi Rivera RN)0935 (Given - Provider: Johnie Whitman RN) fenofibrate nanocrystallized (TRICOR) tablet 145 mg 145 mg, oral, Nightly, First dose on Tue10/21/23 at 2100 2051 (Given - Provider: Holly Stephenson, YUDELKA) insulin glargine (LANTUS, SEMGLEE) 100 unit/mL injection 40 Units 40 Units, subcutaneous, Nightly, First dose on Tue10/21/23 at 2100, Do not mix with other insulins 2052 (Given - Provider: Holly Stephenson, YUDELKA) insulin lispro (HumaLOG, ADMELOG) 100 unit/mL injection 0-5 Units 0-5 Units, subcutaneous, Every 4 hours scheduled, First dose on Tue10/21/23 at 1200, Blood glucose mg/dL: 149 or less: No insulin 150-199: add 1 unit 200-249: add 2 units 250-299: add 3 units 300-349: add 4 units and notify physician for adjustment of insulin orders. 350-399: add 5 units and notify physician for adjustment of insulin orders. Over 400: Notify physician for adjustment of insulin orders. Do NOT hold for NPO Status, Indications: Diabetes Mellitus 0930 (Canceled Entry - Provider: Tanvi Rivera, YUDELKA)0935 (Given - Provider: Johnie Whitman, RN)1300 (Given - Provider: Tanvi Rivera, YUDELKA)1804 (Given - Provider: Fadia No, YUDELKA)1805 (Not Given - Provider: Fadia No RN - Reason: Order parameters not met)2223 (Given - Provider: Holly Stephenson, YUDELKA) 0505 (Not Given - Provider: Holly Stephenson RN - Reason: Other)0934 (Given - Provider: Angie Laird, YUDELKA)1200 (Due) pantoprazole DR (PROTONIX) extended release tablet 40 mg 40 mg, oral, Daily, First dose on Tue10/22/23 at 0900, Do not crush, chew, cut, dissolve, open or otherwise manipulate tablet/capsule., Indications: Treatment of Non-Bleeding Gastric Disorder 0935 (Given - Provider: Angie Laird, RN) piperacillin-tazobactam (ZOSYN) 3.375 gram/115 mL in sodium chloride 0.9% (premix) 3.375 g 3.375 g, intravenous, at 28.8 mL/hr, Administer over 4 Hours, Every 8 hours scheduled, First dose on Tue10/21/23 at 1700, Dose and frequency are based on a 4hr infusion time and may be inappropriate for shorter infusions. Please infuse via secondary line to ensure complete administration., Indications: Abdominal/Pelvic Infection 1716 (New Bag - Provider: Mini Aguirre, YUDELKA)2211 (New Bag - Provider: Holly Stephenson, YUDELKA) 0625 (New Bag - Provider: Holly Stephenson RN)1400 (Due) piperacillin-tazobactam (ZOSYN) 4.5 g in sodium chloride 0.9% 100 mL IVPB (COMPLETED) 4.5 g, intravenous, at 200 mL/hr, Administer over 30 Minutes, Once, On Tue10/21/23 at 0804, For 1 dose, Loading dose per protocol Mini-Bag Plus bag, Indications: Abdominal/Pelvic Infection 0829 (New Bag - Provider: Heather Youssef RN)1619 (Stopped - Provider: Mini Aguirre, YUDELKA) rosuvastatin (CRESTOR) tablet 20 mg 20 mg, oral, Nightly, First dose on Tue10/21/23 at 2100 205 (Given - Provider: Holly Stephenson, YUDELKA) sodium chloride 0.9% flush 0.5-20 mL 0.5-20 mL, intra-catheter, Every 8 hours scheduled, First dose on Tue10/21/23 at 1400, Flush volume based on line type and size. 1349 (Not Given - Provider: Tanvi Rivera RN - Reason: IV Infusing)2056 (Not Given - Provider: Holly Stephenson RN - Reason: IV Infusing) 0625 (Not Given - Provider: Holly Stephenson RN - Reason: IV Infusing)1400 (Due) sodium chloride 0.9% flush 0.5-20 mL 0.5-20 mL, intra-catheter, Every 8 hours scheduled, First dose on Tue10/21/23 at 1630, Flush volume based on line type and size. 1624 (Not Given - Provider: Mini Aguirre RN - Reason: Other)2056 (Not Given - Provider: Holly Stephenson RN - Reason: IV Infusing) 0625 (Not Given - Provider: Holly Stephenson RN - Reason: IV Infusing)1400 (Due) Continuous Medication Order 10/20/2023 10/21/2023 10/22/2023 Lactated Ringer's (LR) infusion 125 mL/hr, intravenous, Continuous, Starting on Tue10/21/23 at 1330, Phase I 1306 (Not Given - Provider: Tanvi Rivera RN - Reason: IV Infusing)1717 (New Bag - Provider: Mini Aguirre, YUDELKA) 1803 (Due: Stopped) PRN Medication Order 10/20/2023 10/21/2023 10/22/2023 acetaminophen (TYLENOL) tablet 650 mg 650 mg, oral, Every 4 hours PRN, 1st line for pain, fever, fever greater than 38.3 C, Starting on Tue10/21/23 at 1800, Indications: Fever, Pain BUPivacaine-EPINEPHrine (MARCAINE with EPI) 0.5 %-1:200,000 preservative free injection (CANCELED) As needed, Starting on Tue10/21/23 at 1218, Intra-Op 1218 (Given - Provider: Edmundo James MD) Carrier Fluids for Secondary Infusion - 0.9% Sodium Chloride 30 mL, intravenous, As needed, For priming tubing and/or flushing, Starting on Tue10/21/23 at 1057, 0-250 ml/hr to flush line after IV infusions when no maintenance IV ordered. Infuse 30mL at the same rate as the secondary infusion. Run as primary IV, not intended for KVO. Carrier Fluids for Secondary Infusion - 0.9% Sodium Chloride 30 mL, intravenous, As needed, For priming tubing and/or flushing, Starting on Tue10/21/23 at 1557, 0-250 ml/hr to flush line after IV infusions when no maintenance IV ordered. Infuse 30mL at the same rate as the secondary infusion. Run as primary IV, not intended for KVO. dextrose (D10W) 10% bolus 250 mL(Linked Group 1) 250 mL, intravenous, at 1,000 mL/hr, Administer over 15 Minutes, Every 15 min PRN, blood glucose less than 70 mg/dL and UNABLE to swallow/take PO glucose/juice., Starting on Tue10/21/23 at 0912, After treatment for hypoglycemia, recheck BG followed by treatment every 15 minutes until the BG is greater than 100 mg/dL. Then check BG 1 hour post treatment. If BG is less than 100 mg/dL, repeat Q15 minute BG checks and treatment. Call MD for each episode of hypoglycemia., Indications: hypoglycemic disorder dextrose (GLUTOSE) 40 % gel 15 g(Linked Group 1) 15 g, oral, Every 15 min PRN, low blood sugar, blood glucose less than 70 mg/dL, Starting on Tue10/21/23 at 0912, If patient is alert and able to eat/drink, give 15 gm glucose or one juice (4 fluid ounces) NOT ORANGE JUICE. After treatment for hypoglycemia, recheck BG followed by treatment every 15 minutes until the BG is greater than 100 mg/dL. Then check BG 1 hour post-treatment. If BG is less than 100 mg/dL, repeat Q15 minute BG checks and treatment. Call MD for each episode of hypoglycemia. RAISE DRILLER STATES GLUTOSE-15 CONTAINS GLUCOSE 40% W/W (50% W/V), Indications: hypoglycemic disorder glucagon injection 1 mg 1 mg, intramuscular, Every 30 min PRN, low blood sugar, blood glucose less than 70 mg/dL AND no IV access AND unable to take PO glucose/juice., Starting on Tue10/21/23 at 0912, After Glucagon is administered, position patient on side if possible to avoid aspiration. Obtain IV access. Follow glucagon treatment with glucose treatment or IV dextrose. After treatment for hypoglycemia, recheck BG followed by treatment every 15 minutes until the BG is greater than 100 mg/dL. Then check BG 1 hour post treatment. If BG is less than 100 mg/dL, repeat Q15 minute BG checks and treatment. Call MD for each episode of hypoglycemia. Reconstitute 1 mg vial with 1 mL SWFI. Use immediately following reconstitution. HYDROcodone-acetaminophen (NORCO) 5-325 mg per tablet 2 tablet 2 tablet, oral, Every 6 hours PRN, 2nd line for pain, Starting on Tue10/21/23 at 1557, Indications: Pain 1725 (Given - Provider: Fadia No, YUDELKA) 0634 (Given - Provider: Holly Stephenson RN)1145 (Given - Provider: Angie Laird, RN - Comment: abd) iohexoL (OMNIPAQUE) 240 mg iodine/mL injection solution (CANCELED) As needed, Starting on Tue10/21/23 at 1219, Intra-Op 1219 (Given - Provider: Edmundo James MD) ioversoL (OPTIRAY 350) syringe 90 mL (COMPLETED) 90 mL, intravenous, Once in imaging, contrast, Starting on Tue10/21/23 at 0620, For 1 dose 0639 (Contrast Given - Provider: Saeed Avelar RT) ketorolac (TORADOL) 30 mg/mL (1 mL) injection 15 mg 15 mg, intravenous, Every 6 hours PRN, 1st line for pain, Starting on Tue10/21/23 at 1557, For 5 days, For Adult IV push, administer over 15 seconds 1311 (Given - Provid er: Angie Laird RN - Comment: abd) morphine injection 2 mg 2 mg, intravenous, Administer over 4 Minutes, Every 3 hours PRN, 3rd line for pain, Starting on Tue10/21/23 at 1557, Indications: Pain 2211 (Given - Provider: Holly Stephenson RN) ondansetron (ZOFRAN) injection 4 mg(Linked Group 2) 4 mg, intravenous, Administer over 2 Minutes, Every 6 hours PRN, nausea, vomiting, if not tolerating PO, Starting on Tue10/21/23 at 1058, Indications: Nausea and Vomiting ondansetron ODT (ZOFRAN-ODT) disintegrating tablet 4 mg(Linked Group 2) 4 mg, oral, Every 6 hours PRN, nausea, vomiting, Starting on Tue10/21/23 at 1058, Indications: Nausea and Vomiting ramelteon (ROZEREM) tablet 8 mg 8 mg, oral, Nightly PRN, sleep, Starting on Tue10/21/23 at 1058, Indications: Sleep-Onset Insomnia sodium chloride 0.9% flush 0.5-20 mL 0.5-20 mL, intra-catheter, As needed, line care, Starting on Tue10/21/23 at 1057, Flush volume based on line type and size. Flush before and after each use. sodium chloride 0.9% flush 0.5-20 mL 0.5-20 mL, intra-catheter, As needed, line care, Starting on Tue10/21/23 at 1557, Flush volume based on line type and size. Flush before and after each use. No Frequency Medication Order 10/20/2023 10/21/2023 10/22/2023 sodium chloride 0.9% 0.9% infusion - ADS Override Pull (COMPLETED) Starting on Tue10/21/23 at 1659, For 1 dose, Created by cabinet override 1715 (New Bag - Provider: Mini Aguirre RN) Linked Groups Order Group 1: dextrose (GLUTOSE) 40 % gel 15 gJump to med 15 g, oral, Every 15 min PRN, low blood sugar, blood glucose less than 70 mg/dL, Starting on Tue10/21/23 at 0912, If patient is alert and able to eat/drink, give 15 gm glucose or one juice (4 fluid ounces) NOT ORANGE JUICE. After treatment for hypoglycemia, recheck BG followed by treatment every 15 minutes until the BG is greater than 100 mg/dL. Then check BG 1 hour post-treatment. If BG is less than 100 mg/dL, repeat Q15 minute BG checks and treatment. Call MD for each episode of hypoglycemia. RAISE DRILLER STATES GLUTOSE-15 CONTAINS GLUCOSE 40% W/W (50% W/V), Indications: hypoglycemic disorder Or dextrose (D10W) 10% bolus 250 mLJump to med 250 mL, intravenous, at 1,000 mL/hr, Administer over 15 Minutes, Every 15 min PRN, blood glucose less than 70 mg/dL and UNABLE to swallow/take PO glucose/juice., Starting on Tue10/21/23 at 0912, After treatment for hypoglycemia, recheck BG followed by treatment every 15 minutes until the BG is greater than 100 mg/dL. Then check BG 1 hour post treatment. If BG is less than 100 mg/dL, repeat Q15 minute BG checks and treatment. Call MD for each episode of hypoglycemia., Indications: hypoglycemic disorder Group 2: ondansetron ODT (ZOFRAN-ODT) disintegrating tablet 4 mgJump to med 4 mg, oral, Every 6 hours PRN, nausea, vomiting, Starting on Tue10/21/23 at 1058, Indications: Nausea and Vomiting Or ondansetron (ZOFRAN) injection 4 mgJump to med 4 mg, intravenous, Administer over 2 Minutes, Every 6 hours PRN, nausea, vomiting, if not tolerating PO, Starting on Tue10/21/23 at 1058, Indications: Nausea and Vomiting documented in this encounter Orders Medications Ordered That Enrrique ht Not Have Been Administered Count Last Ordered Date First Ordered Date acetaminophen (TYLENOL) tablet 650 mg acetaminophen (TYLENOL) tablet 975 mg 2 albuterol 2.5 mg /3 mL (0.08 3 %) nebulizer solution 2.5 mg 10/21/2023 Carrier Fluids for Secondary Infusion - 0.9% Sodium Chloride 2 10/21/2023 dextrose (D10W) 10% bolus 250 mL 10/21/19 dextrose (GLUTOSE) 40 % gel 15 g 10/21/19 diphenhydrAMINE (BENADRYL) 5 0 mg/mL injection 12.5 mg 1 10/21/2023 enoxaparin (LOVENOX) syringe 40 mg 1 2023 famotidine (PEPCID) tablet 20 mg 10/21/19 fenofibrate nanocrystallized (TRICOR) tablet 145 mg 10/21/2023 fentaNYL (SUBLIMAZE) preserv ative free injection 50 mcg 1 10/21/2023 glucagon injection 1 mg 1 10/21/2023 hydrALAZINE (APRESOLINE) injection 5 mg 1 0 10/21/2023 HYDROcodone-acetaminophen (N ORCO) 5-325 mg per tablet 1 tablet 1 10/21/2023 HYDROcodone-acetaminophen (N ORCO) 5-325 mg per tablet 2 tablet 1 10/21/2023 HYDROmorphone (DILAUDID) injection 0.2 mg 1 10/21/2023 HYDROmorphone (DILAUDID) injection 0.4 mg 10/21/2023 insulin glargine (LANTUS, SE MGLEE) 100 unit/mL injection 40 Units 10/21/2023 insulin lispro (HumaLOG, ADM ELOG) 100 unit/mL injection 0-5 Units 1 10/21/2023 ioversoL (OPTIRAY 350) syringe 90 mL 09/27 ketorolac (TORADOL) 30 mg/mL (1 mL) injection 15 mg 1 10/21/2023 labetaloL (NORMODYNE,TRANDAT E) injection 5 mg 10/21/2023 Lactated Ringer's (LR) infusion Lactated Ringer's (LR) infus ion - ADS Override Pull 10/21/2023 meperidine (DEMEROL) preserv ative free injection 12.5 mg 1 10/21/2023 morphine injection 2 mg 1 10/21/2023 naloxone (NARCAN) 0.4 mg/mL injection 0.04-0.4 mg 10/21/2023 ondansetron (ZOFRAN) injection 4 mg 2 10/21 ondansetron ODT (ZOFRAN-ODT) disintegrating tablet 4 mg 1 10/21/[address] (PROTONIX) e xtended release tablet 40 mg 1 10/21/2023 piperacillin-tazobactam (ZOS YN) 3.375 gram/115 mL in sodium chloride 0.9% (premix) 3.375 g 2 10/21/2023 piperacillin-tazobactam (ZOS YN) 3.375 gram/65 mL in sodium chloride 0.9% (premix) 3.375 g 1 10/21/2023 piperacillin-tazobactam (ZOS YN) 4.5 g in sodium chloride 0.9% 100 mL IVPB 1 10/21/2023 prochlorperazine (COMPAZINE) injection 5 mg 1 10/21/2023 ramelteon (ROZEREM) tablet 8 mg 1 rosuvastatin (CRESTOR) tablet 20 mg 1 10/21 sodium chloride 0.9% 0.9% in fusion - ADS Override Pull 1 10/21/2023 sodium chloride 0.9% flush 0.5-20 mL 4 09/27 Lab Orders Without Results Count Last Ordered D ate First Ordered Date POCT GLUCOSE DEVICE 4 10/21/2023 Diet Count Last Ordered Date First Orde red Date ADULT DISCHARGE DIET 1 10/22/2023 Nursing Count Last Ordered Date First Orde red Date DISCHARGE ACTIVITY 1 10/22/2023 DISCHARGE CALL PROVIDER 7 10/22/2023 DISCHARGE DRESSING 1 10/22/2023 MISCELLANEOUS NURSING CARE ORDER (SPECIFY) 1 10/21/2023 NURSING COMMUNICATION 1 10/21/2023 VERIFY INFORMED CONSENT 1 10/21/2023 WEIGH PATIENT 1 10/21/2023 IV Count Last Ordered Date First Orde red Date SALINE LOCK IV 1 10/21/2023 Admission Count Last Ordered Date First Orde red Date ADMIT TO INPATIENT 1 10/21/2023 Transfer Count Last Ordered Date First Orde red Date ED TO FLOOR BED REQUEST 1 10/21/2023 Discharge Count Last Ordered Date First Orde red Date DISCHARGE PATIENT 1 10/22/2023 CORE MEASURES Count Last Ordered Date First Ord ered Date REASON FOR NO VTE PROPHYLAXI S - HOSPITAL ADMISSION - MEDICATIONS 1 10/21/2023 documented in this encounter Care Teams Technology Applications Teacher Relationship Specialty Start Date End Date Preston Moulton PA PCP - General Family Medicine 03/10/23 documented as of this encounter
--- OUTSIDE RECORDS SUMMARY | 2024-10-02 02:34 | XMS_ITS | Encounter Summary ---
Author Organization [facility] Address [address] [place] [address] Care Team Providers Care Supervisor Hardboard Name Role Phone Lemuel Frost MD Primary Care Provider + Reason for Referral * Consultation (Urgent) - Closed Specialty Diagnoses / Procedures Referred By Contac t Referred To Contact Endocrinology Diagnoses Diabetic ketoacidosis without coma associated with other specified diabetes mellitus (HCC) Type 2 diabetes mellitus with hyperglycemia, without long-term current use of insulin (HCC) Sena Moulton PA Phone: tel: fax: [facility] [address] [place] [address] Phone: tel: fax: Referral ID Status Reason Start Date Expiration Date V isits Requested Visits Authorized [id number] Closed Specialty Services Required 02/23/2023 03/24/2024 1 1 Question Answer Please select the performing region: [facility] [[id number]] Please select the performing department: [facility] [[id number]] # of visits: 1 Comments Patient recently in hospital for DKA, new diabetic, a1c 14.9, he is stable, please see, eval and treat Reason for Visit * Reason Comments Hospital Follow Up pancreatitis Blurred Vision Encounter Details Date Type Department Care Team (Late st Contact Info) Description 02/23/2023 3:00 PM CDT Office Visit [facility] Primary Care [address] [place] [address] Sena Moulton PA [address] [place] [address] Diabetic ketoacidosis without coma associated with other specified diabetes mellitus (HCC) (Primary Dx); Elevated systolic blood pressure reading without diagnosis of hypertension; SHIVA (generalized anxiety disorder); Hypertriglyceridemia; Type 2 diabetes mellitus with hyperglycemia, without long-term current use of insulin (CMS/HCC) (HCC); Acute pancreatitis, unspecified complication status, unspecified pancreatitis type; Vision changes; Abnormal CT of the abdomen Social History Tobacco Use Types Packs/Day Years [...] drink containing alc ohol? Monthly or less 02/23/2023 Q2: How many drinks containi ng alcohol do you have on a typical day when you are drinking? 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 Gender Identity Male 11/18/2021 1:25 PM OPERATOR ENGINEER Sexual Orientation Straight 11/18/2021 1: 25 PM OPERATOR ENGINEER documented as of this encounter Last Filed Vital Signs Vital Sign Reading Time Taken Comments Blood Pressure 118/80 02/23/2023 2:57 PM CDT Pulse 108 02/23/2023 2:57 PM CDT Temperature 35.8 ??C (96.5 ??F) 02/23/2023 2:57 PM CD T Respiratory Rate 16 02/23/2023 2:57 PM CDT Oxygen Saturation 98% 02/23/2023 2:57 PM CDT Inhaled Oxygen Concentration - - Weight 72.1 kg (159 lb) 02/23/2023 2:57 PM CDT Height 172.7 cm (5' 8 ) 02/23/2023 2:57 PM CDT Body Mass Index 24.18 02/23/2023 2:57 PM CDT documented in this encounter Progress Notes * Sena Moulton PA - 02/23/2023 3:00 PM CDT Images from the original note were not included. Transition of Care Visit Patient is seen in the office today for a transition of care visit, after a recent hospitalization.Initial phone contact was confirmed for the transition of care within two business days after discharge, and communication regarding aspects of care, education and support with activities of daily living is documented in the chart. ISena PA have personally reviewed pertinent Hospital/ER data including [employer] and Care Everywhere if available. This patient's discharge medication list has been reviewed and reconciledwith his medication list in the office chart and has also been reviewed with patient and/or caregiver. I have noted any changes. Admission Date: 02/10/23 Discharge Date: 02/15/23 Date of Initial Post-discharge Interactive Contact: 02/23/23 Complexity of Medical Decision Making: complex Metabolic Lab Results: Body mass index is 24.18 kg/m??. Glucose: Glucose Date Value Ref Range Status 02/15/2023 378 (H) 70 - 199 mg/dL Final Comment: Delta - Results Reviewed Interpretive Data Fasting glucose >/= 126 mg/dl is diagnostic for diabetes. Fasting is defined as no caloric intake [...] Current interpretive data was last revised 2022. Glucose, POC Date Value Ref Range Status 02/15/2023 346 (H) 70 - 199 mg/dL Final Lab Results Component Value Date WBC 8.1 02/15/2023 HGB 12.7 (L) 02/15/2023 HCT 36.0 (L) 02/15/2023 MCV 87.8 02/15/2023 Lab Results Component Value Date GLUCOSE 346 (H) 02/15/2023 CALCIUM 9.0 02/15/2023 SODIUM 132 (L) 02/15/2023 POTASSIUM 4.5 02/15/2023 CO2 30 02/15/2023 CHLORIDE 94 (L) 02/15/2023 BUNSER 10 02/15/2023 CREATININE 0.70 (L) 02/15/2023 Major Procedures and Tests: Major Procedures and Tests Performed During Inpatient Stay: Studies Pending at Discharge (Includes Lab and Radiology) None Interval History: Patient was seen in office, sent to ER, admittted for DKA and Pancreatitis, admitted for treatment,started on new medications, 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/Hcc) (Hcc) Elevated Systolic Blood Pressure Reading Without Diagnosis of Hypertension Hypertriglyceridemia Shiva (Generalized Anxiety Disorder) (Resolved) Current Outpatient Medications Medication Sig Dispense Refill [...] SEMGLEE) 100 unit/mL vial for injection Inject 75 Units under the skin nightly 10 mL 1 insulin lispro (HumaLOG, ADMELOG) 100 unit/mL vial for injection Inject 10 Units under the skin 3 (three) times a day with meals 10 mL 1 insulin syringe-needle U-100 1 mL 31 gauge x 5/16 syringe Use to inject 1-4 times daily as directed. 300 each 4 lancets misc Use as directed to check blood glucose 4 times per day 200 each 3 metFORMIN XR (GLUCOPHAGE XR) 500 mg 24 hr tablet Take 1 tablet (500 mg total) by mouth 2 (two) times a day before breakfast and lunch [address] (PROTONIX) 40 mg EC tablet Take 1 tablet (40 mg total) by mouth 2 (two) times a day60 tablet 1 pen needle, diabetic 31 gauge x 5/16 needle Use to inject 1-4 times daily as directed. 300 each 4 rosuvastatin (CRESTOR) 20 mg tablet Take 1 tablet (20 mg total) by mouth daily 90 tablet 3 No current facility-administered medications for this visit. Review of Systems: Review of Systems Constitutional: Negative for activity change. HENT: Negative for congestion. Respiratory: Negative for shortness of breath. Cardiovascular: Negative for chest pain. Gastrointestinal: Negative for abdominal pain. Physical Exam: BP 118/80 (BP Location: Left arm, Patient Position: Sitting) Pulse 108 Temp (!) 35.8 ??C (96.5 ??F) (Temporal) Resp 16 Ht 172.7 cm (5' 8 ) Wt 72.1 kg (159 lb) SpO2 98% BMI 24.18 kg/m?? Physical Exam Constitutional: General: He is not [...] Diagnoses and all orders for this visit: Diabetic ketoacidosis without coma associated with other specified diabetes mellitus (HCC) (Primary) Assessment & Plan: Out of hospital, main concern vision, I will get seen this week by optometry Orders: - Ambulatory referral to Optometry; Future - Ambulatory referral to Endocrinology; Future Elevated systolic blood pressure reading without diagnosis of hypertension Assessment & Plan: Now well controlled SHIVA (generalized anxiety disorder) Assessment & Plan: Lost father under a lot of stress Hypertriglyceridemia Assessment & Plan: On medications, discussed diet, will follow labs Orders: - Ambulatory referral to Optometry; Future Type 2 diabetes mellitus with hyperglycemia, without long-term current use of insulin ([facility]) (HCC) Assessment & Plan: Monitor sugars at meals and fasting, will adjust insulin as needed. Given severity I think endocrinology is approppriate Orders: - Ambulatory referral to Optometry; Future - Ambulatory referral to Endocrinology; Future Acute pancreatitis, unspecified complication status, unspecified pancreatitis type Assessment & Plan: Could be trigs, but gallbladder pancreatitis is possible, will re-check labs, he is not in pain, low fat diet may need GI consult Orders: - Ambulatory referral to Optometry; Future - Comprehensive metabolic panel; Future - Lipase; Future Vision changes Assessment & Plan: Concerning and worse despite better control, I am getting into optometry YVETTE Abnormal CT of the abdomen Assessment & Plan: Patient has a few non-emergent findings we will need to f/u on Coordination of Home care services and follow-up with specialist appointments confirmed. Instructions have been provided to and reviewed with the patient/post acute care nurse prior to discharge. ALFREDITO Rivas documented in this encounter Miscellaneous Notes * Assessment & Plan Note - Sena Moulton PA - 02/23/2023 3:36 PM CDTAssociated Problem(s): Abnormal CT of the abdomen (Resolved 05/05/2023) Patient has a few non-emergent findings we will need to f/u on * Assessment & Plan Note - Sena Moulton PA - 02/23/2023 3:33 PM CDTAssociated Problem(s): Vision changes (Resolved 05/05/2023) Concerning and worse despite better control, I am getting into optometry YVETTE * Assessment & Plan Note - Sena Moulton PA - 02/23/2023 3:29 PM CDTAssociated Problem(s): Type 2 diabetes mellitus with hyperglycemia, with long-term current use of insulin (HCC) Monitor sugars at meals and fasting, will adjust insulin as needed. Given severity I think endocrinology is approppriate * Assessment & Plan Note - Sena Moulton PA - 02/23/2023 3:29 PM CDTAssociated Problem(s): Hypertriglyceridemia (Deleted) On medications, discussed diet, will follow labs * Assessment & Plan Note - Sena Moulton PA - 02/23/2023 3:28 PM CDTAssociated Problem(s): SHIVA (generalized anxiety disorder) (Resolved 02/08/2023) Lost father under a lot of stress * Assessment & Plan Note - Sena Moulton PA - 02/23/2023 3:28 PM CDTAssociated Problem(s): Elevated systolic blood pressure reading without diagnosis of hypertension Now well controlled * Assessment & Plan Note - Sena Moulton PA - 02/23/2023 3:23 PM CDTAssociated Problem(s): Diabetic ketoacidosis without coma associated with other specified diabetes mellitus (HCC) (Resolved 05/05/2023) Out of hospital, main concern vision, I will get seen this week by optometry * Assessment & Plan Note - Sena Moulton PA - 02/23/2023 3:22 PM CDTAssociated Problem(s): Acute pancreatitis (Resolved 05/05/2023) Could be trigs, but gallbladder pancreatitis is possible, will re-check labs, he is not in pain, low fat diet may need GI consult * Assessment & Plan Note - Jessica Genao NP - 02/23/2023 3:00 PM CDTAssociated Problem(s): Mixed hyperlipidemia >>ASSESSMENT AND PLAN FOR HYPERTRIGLYCERIDEMIA WRITTEN ON 02/23/2023 3:29 PM BY SENA MOULTON PA On medications, discussed diet, will follow labs documented in this encounter Plan of Treatment Scheduled Referrals Name Type Priority Associated Diagnoses Orde r Schedule Ambulatory referral to Endocrinology Outpatient Referral Routine Diabetic ketoacidosis without coma associated with other specified diabetes mellitus (HCC) Type 2 diabetes mellitus with hyperglycemia, without long-term current use of insulin (CMS/HCC) (HCC) Expected: 03/09/2023, Expires: 08/25/2023 documented as of this encounter Results * (ABNORMAL) Lipase (03/03/2023 3:08 PM CDT) Lipase 135(H) 10 - 99 Units/L ELLIOT Comment:Testing performed by : [address] [address] Blood 03/03/2023 3:08 PM CDT 03/03/2023 4:00 PM CDT Sena GLASER LAB BLOOD ORDERABLES Final Resu lt ELL[facility]OT [address] [facility] Department [place] [address] * Comprehensive metabolic panel (03/03/2023 3:08 PM CDT) Sodium 139 135 - 145 mmol/L ELLIOT HINES Comment:Testing performed by : [address] [address] Potassium, pl 3.8 3.3 - 4.9 mmol/L ELLIOT HINES Comment:Testing performed by : [address] [address] Chloride 104 97 - 110 mmol/L ELLIOT Comment:Testing performed by : [address], [place]., [address] CO2 26 22 - 32 mmol/L ELLIOT Comment:Testing performed by : [address], [place]., [address] Anion gap 9 2 - 15 mmol/L ELLIOT Comment:Testing performed by : [address], [place]., [address] BUN 13 8 - 25 mg/dL ELLIOT Comment:Testing performed by : [address], [place]., [address] Creatinine 0.90 0.80 - 1.30 mg/dL ELLIOT Comment:Testing performed by : [address], [place]., [address] Glucose 99 70 - 199 mg/dL ELLIOT Comment: Interpretive [...] was last revised 2022. Testing performed by: [address] [address] Calcium 9.7 8.5 - 10.3 mg/dL ELLIOT Comment:Testing performed by : [address] [address] Bilirubin, total 0.6 0.1 - 1.2 mg/dL ELLIOT Comment:Testing performed by : [address] [address] Protein, pl 7.2 6.5 - 8.5 g/dL ELLIOT Comment:Testing performed by : [address], [place]., [address] Albumin 4.3 3.5 - 5.0 g/dL ELLIOT HINES Comment:Testing performed by : [facility], [address] [place] [address]., [address] Alk phos 61 40 - 130 Units/L ELLIOT HINES Comment:Testing performed by : [facility], [address] [place] [address]., [address] ALT 28 7 - 55 Units/L ELLIOT HINES Comment:Testing performed by : [facility], [address] [place] [address]., [address] AST 22 10 - 50 Units/L ELLIOT HINES Comment:Testing performed by : [facility], [address] [place] [address]., [address] Blood 03/03/2023 3:08 PM CDT 03/03/2023 4:00 PM CDT Sena GLASER LAB BLOOD ORDERABLES Final Resu lt Performing Organization Address City/State/[facility] Co de Phone Number ELLIOT [address] [facility] Department [place] [address] documented in this encounter Visit Diagnoses Diagnosis Diabetic ketoacidosis without coma associated with other specified diabetes mellitus (HCC)- Primary Elevated systolic blood pressure reading without diagnosis of hypertension SHIVA (generalized anxiety disorder) Generalized anxiety disorder Hypertriglyceridemia Pure hyperglyceridemia Type 2 diabetes mellitus with hyperglycemia, without long-term current use of insulin (HCC) Acute pancreatitis, unspecified complication status, unspecified pancreatitis type Vision changes Abnormal CT of the abdomen Nonspecific (abnormal) findings on radiological and other examination of abdominal area, including retroperitoneum documented in this encounter Care Teams Supervisor Hardboard Relationship Specialty Start Date End Date Lemuel Frost MD [address] [place] [address] [address] [place] [address] PCP - General Family Medicine 10/09/21 03/09/23 documented as of this encounter
--- OUTSIDE RECORDS SUMMARY | 2024-10-02 02:34 | XMS_ITS | Encounter Summary ---
Author Organization [facility] Address [address] [place] [address] Care Team Providers Care Diesel Fleet Mechanic Name Role Phone Lemuel Frost MD Primary Care Provider + Reason for Visit * Reason Onset Date Comments Lab Results 03/03/2023 Encounter Details Date Type Department Care Team (Late st Contact Info) Description 03/03/2023 Telephone [facility] Primary Care [address] [place] [address] Betsy Salinas MA Lab Results [...] often do you attend chur ch or islam services? More than 4 times per year [...] drink containing alc ohol? Monthly or less 03/03/2023 Q2: How many drinks containi ng alcohol do you have on a typical day when you are drinking? 1 or 2 03/03/2023 Frequency of Binge Drinking Not on file 04/2023 Overall Financial Resource Strain (CARDIA) Answe r [...] place to sleep or slept in a assisted (including now)? 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 Jorden sent another message regarding A1c * Telephone Encounter - Betsy Salinas MA - 03/03/2023 5:17 PM CDT ----- Message from ALFREDITO Rivas sent at 03/03/2023 4:36 PM CDT ----- Improved, I would like to try to expedite consult to endocrinology ----- Message ----- From: Interface, Lab Results In Sent: 03/03/2023 4:29 PM CDT To: ALFREDITO Rivas documented in this encounter Plan of Treatment Not on file documented as of this encounter Visit Diagnoses Not on filedocumented in this encounter Care Teams Diesel Fleet Mechanic Relationship Specialty Start Date End Date Lemuel Frost MD [address] [place] [id number] PCP - General Family Medicine 10/09/21 03/09/23 documented as of this encounter
--- OUTSIDE RECORDS SUMMARY | 2024-10-02 02:34 | XMS_ITS | Encounter Summary ---
Author Organization [facility] Address [address] [place] [address] Care Team Providers Care Bag Bailer Name Role Phone Preston Moulton Primary Care Provider [phone] Nelly Roy LPN Unavailable [phone] Encounter Details Date Type Department Care Team (Late st Contact Info) Description 03/30/2023 Telephone [facility] Primary Care [address] [place] [address] Preston Moulton PA [address] [place] [address] Social History Tobacco Use Types [...] any clubs o r organizations such as christianity groups, unions, fraternal or athletic groups, or [...] on file Legal Sex Male 9:22 AM DAYTIME BABYSITTER Gender Identity Male 11/18/2021 1:25 PM DAYTIME BABYSITTER Sexual Orientation Straight 11/18/2021 1: 25 PM DAYTIME BABYSITTER documented as of this encounter Plan of Treatment Not on file documented as of this encounter Visit Diagnoses Not on filedocumented in this encounter Care Teams Bag Bailer Relationship Specialty Start Date End Date Preston Moulton PA PCP - General Family Medicine 03/10/23 Nelly Roy LPN [address] [place] [address] [address] [place] [address] Tubing Supervisor 10/24/23 10/25/23 documented as of this encounter
--- OUTSIDE RECORDS SUMMARY | 2024-10-02 02:34 | XMS_ITS | Encounter Summary ---
Author Organization [facility] Address [address] [place] [address] Care Team Providers Care Silk Folder Name Role Phone Lemuel Frost MD Primary Care Provider + Reason for Visit * Reason Onset Date Comments Referral 03/03/2023 Encounter Details Date Type Department Care Team (Late st Contact Info) Description 03/03/2023 Telephone [facility] Primary Care [address] [facility] [address] [place] [address] Betsy Salinas MA Referral Social History Tobacco Use Types Packs/Day Years [...] often do you attend chur ch or anglican services? More than 4 times per year 02/11/2023 Do you belong to any clubs o r organizations such as alevism groups, unions, fraternal or athletic groups, or [...] place to sleep or slept in a long-term (including now)? 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 Gender Identity Male 11/18/2021 1:25 PM FLY RAIL OPERATOR Sexual Orientation Straight 11/18/2021 1: 25 PM FLY RAIL OPERATOR documented as of this encounter Miscellaneous Notes * Telephone Encounter - Betsy Salinas MA - 03/03/2023 5:15 PM CDT * Telephone Encounter - Betsy Salinas MA - 03/03/2023 12:45 PM CDT ----- Message from ALFREDITO Rivas sent at 03/03/2023 11:07 AM CDT ----- Regarding: endocrinology Please check with referrals about his endocrinology consult documented in this encounter Plan of Treatment Not on file documented as of this encounter Visit Diagnoses Not on filedocumented in this encounter Care Teams Silk Folder Relationship Specialty Start Date End Date Lemuel Frost MD [address] [place] [address] PCP - General Family Medicine 10/09/21 03/09/23 documented as of this encounter
--- OUTSIDE RECORDS SUMMARY | 2024-10-02 02:34 | XMS_ITS | Encounter Summary ---
Author Organization [facility] Address [address] [place] [address] Care Team Providers Care Marketing Operations Coordinator Name Role Phone Preston Moulton Primary Care Provider [phone] Reason for Visit * Reason Onset Date Comments ABDIEL 2023 Encounter Details Date Type Department Care Team (Late st Contact Info) Description 2023 Telephone [facility] Primary Care [address] [facility] [address] [facility] [address] [place] [address] Betsy Salinas MA ABDIEL Social History Tobacco Use Types Packs/Day Years [...] often do you attend chur ch or hinduism services? More than 4 times per year 02/11/2023 Do you belong to any clubs o r organizations such as christian groups, unions, fraternal or athletic groups, or [...] in a intermediate (including now)? 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 Gender Identity Male 11/18/2021 1:25 PM CHIEF SCHOOL FINANCE OFFICER Sexual Orientation Straight 11/18/2021 1: 25 PM CHIEF SCHOOL FINANCE OFFICER documented as of this encounter Miscellaneous Notes * Telephone Encounter - Betsy Salinas MA - 2023 7:04 AM CDT ----- Message from ALFREDITO Rivas sent at 2023 6:30 AM CDT ----- Regarding: ABDIEL Needs ABDIEL call today please documented in this encounter Plan of Treatment Not on file documented as of this encounter Visit Diagnoses Not on filedocumented in this encounter Care Teams Marketing Operations Coordinator Relationship Specialty Start Date End Date Preston Moulton PA PCP - General Family Medicine 03/10/23 documented as of this encounter
--- OUTSIDE RECORDS SUMMARY | 2024-10-02 02:34 | XMS_ITS | Encounter Summary ---
Author Organization [facility] Address [address] [place] [address] Care Team Providers Care Crew Team Member Name Role Phone Preston Moulton Primary Care Provider [phone] Reason for Visit * Auth/Cert (Routine) Specialty Diagnoses / Procedures Referred By Contac t Referred To Contact Diagnoses Cholecystitis Hyperglycemia Hypertension, unspecified type Procedures na Referral ID Status Reason Start Date Expiration Date Visits Re quested Visits Authorized [id number] 1 1 Encounter Details Date Type Department Care Team (Late st Contact Info) Description 10/21/2023 10:52 AM RECONDITIONER Anesthesia Event [facility] OR [address] [place] [id number] Chadwick Mckeon MD [address] [place] [id number] Shi Newman CRNA [address] [place] [phone] Anesthesia Record Procedure Summary Procedure Name Responsible Anesthesiologist Anesthesia Start Time Anesthesia Stop Time LAPAROSCOPIC CHOLECYSTECTOMY (Abdomen) Chadwick Mckeon MD 10/21/23 1052 10/21/23 1254 Events Date Time Event Comment 10/21/2023 0928 1051 In Room 1052 An Start 1052 An Start Data 1058 An Induction The patient was reevaluated immediately before moderate or deep sedation use and before anesthesia induction. 1107 An Intubation Zosyn given at 0830 per pharmacy 1107 an erik now 1107 Anesthesia Ready 1119 Proc Start 1239 Proc Fin 1239 An Extubation 1246 an stop data 1246 Out of Room 1254 Handoff to RN I completed my handoff to the receiving nurse during which we: 1. Patient identified 2. Responsible provider identified 3. Pertinent medical history reviewed 4. Procedure type and surgical course discussed 5. Intraoperative anesthetic management and any significant issues discussed 6. Expectations and concerns for postop period discussed 7. Questions solicited from receiving nurse 8. Patient disposition at the time of handoff: No value filed. 1254 An Stop Meds Name Total midazolam 1 mg/mL 2 mg propofol 400 mg lidocaine (cardiac) syringe 2 % 4 mL fentaNYL 50 mcg/mL PF 100 mcg rocuronium 70 mg ondansetron PF 4 mg dexAMETHasone 4 mg/mL 8 mg phenylephrine injection 100 mcg/mL 100 m cg sugammadex 200 mg LR 1,000 mL * Agents Name O2% N2O O2 N2O Air Sevoflurane Inspired Sevoflurane * Blood No blood administrations on file. Lines, Drains, and Airways Type Details Placement Removal Peripheral IV Placement Date: 10/21/23; Placement Time: 0400; Catheter Size: 20 G; Orientation: Right; Location: Antecubital; Removal Date: 10/22/23; Removal Time: 13110/21/23 0400 by Celestina Hernandez RN 10/22/23 1317 by Angie Laird RN ETT Placement Date: 10/21/23; Placement Time: 1109 (created via procedure documentation); Mask Ventilation: 2; Technique: Video laryngoscopy; Type: ETT - single; Single Lumen Tube Size: 8 mm; Cuffed: Yes; Laryngoscope: Cortez; Blade Size: 3; Location: Oral; Grade View: Grade III; Insertion Attempts: 3 or more; Placement Verification: Auscultation, Capnometry; Airway Comment: Gums/lips/teeth atraumatic, Grade III views with MAC 4, MIL 2, MIL 3; Removal Date: 10/21/23; Removal Time: 1239 10/21/23 1109 by Shi Newman CRNA 10/21/23 1239 by Shi Newman CRNA RETIRED Surgical Site 10/21/23; 1222; Abdomen; 15 lemu[address] drain sut[address] in place. Dermabond x 4; 10/22/23; 1318 10/21/23 1222 by Nikia Bryan RN 10/22/23 1318 by Angie Laird, RN Oral/Nasal Airway Placement Date: 10/21/23; Placement Time: 1246; Non-Surgical Airway Device: Oral pharyngeal airway; Placed By: Advanced Practice provider; Removal Date: 10/21/23; Removal Time: 1314 10/21/23 1246 by Tanvi Rivera RN 10/21/23 1314 by Tanvi Rivera RN Closed/Suction/Open Drain 10/21/23; 1246; 1; RLQ; Bulb 10/21/23 1246 by Tanvi Rivera RN 10/22/23 1317 by Angie Laird, RN documented in this encounter Social History Tobacco [...] How often do you attend chur or advent services? More than 4 times [...] on file Legal Sex Male 9:22 AM RECONDITIONER Gender Identity Male 11/18/2021 1:25 PM RECONDITIONER Sexual Orientation Straight 11/18/2021 1: 25 PM RECONDITIONER documented as of this encounter OR Notes * Anesthesia Postprocedure Evaluation - Chadwick Mckeon MD - 10/21/2023 2:04 PM CST Patient: Chadwick Holcomb Procedure Summary Date: 10/21/23 Room / Location: [facility] / [facility] Anesthesia Start: 1052 Anesthesia Stop: 1254 Procedure: LAPAROSCOPIC CHOLECYSTECTOMY (Abdomen) Diagnosis: Surgeons: Edmundo James MD Responsible Provider: Chadwick Mckeon MD Anesthesia Type: general ASA Status: 3 Anesthesia Type: general Last vitals BP 119/82 (BP Location: Left arm, Patient Position: HOB 30 degrees) Pulse 92 Temp 36.2 ??C (97.1 ??F) (Temporal) Resp 19 SpO2 97% Anesthesia Post Evaluation Patient location during evaluation: PACU Patient participation: complete - patient participated Level of consciousness: fully awake Pain score: 5 Pain management: satisfactory to patient Airway patency: adequate Evidence of recall: no Cardiovascular status: acceptable Respiratory status: acceptable Hydration status: acceptable Pt is: normothermic Nausea/Vomiting status: none No notable events documented. NDITIONER * Anesthesia Procedure Notes - Shi Newman CRNA - 10/21/2023 11:08 AM CSTAssociated Order(s): Airway Airway Patient location: OR Urgency: elective Indications for airway management: anesthesia and airway protection Difficult airway: no Staff: Placed by: PUBLISHING SPECIALIST: Shi Newman CRNA Emergent airway documentation: Risks and benefits discussed: yes Consent obtained: yes Consent given by: patient Airway prep: Preoxygenated: yes Patient position: sniffing Mask difficulty assessment: 2 - vent by mask + OA or adjuvant Spontaneous ventilation during airway: present Sedation level during airway: GA Final airway details: Final airway type: endotracheal airway Tube type: ETT ETT size: 8.0 mm Cuffed: yes Technique used for successful ETT placement: video laryngoscopy Devices/Methods used in placement: intubating stylet Insertion site: oral Blade type: Cortez Blade size: 3 Cormack-Lehane (direct): grade III - view of epiglottis only Cormack-Lehane (video): grade I - full view of glottis Cuff volume: 8 mL Cuff inflated with: air Placement verified by: auscultation and CO2 detection Airway secured with: other (pink tape) Number of attempts: 3 or more Unsuccessful approach(es) for ETT: direct laryngoscopy Additional comments: Gums/lips/teeth atraumatic, Grade III views with MAC 4, MIL 2, MIL 3 NDITIONER NDITIONER * Anesthesia Preprocedure Evaluation - Chadwick Mckeon MD - 10/21/2023 9:18 AM CST Images from the original note were not included. Anesthesia Evaluation Chadwick Holcomb is a 43 y.o. male Procedure(s): LAPAROSCOPIC CHOLECYSTECTOMY * No Diagnosis Codes entered * HISTORY Past Medical History Neurological Neuro/Psych system: negative Cardiovascular + Hypertension (not on current meds) + Hyperlipidemia Pertinent negatives: GA ; arrhythmia; PVD and DVT/PE Respiratory Pertinent negatives: COPD; asthma and non-smoker Sleep apnea: snores. Hepatic / Heme Hepatic/Heme system: negative Gastrointestinal + GERD Symptoms < 1x/week. Comments: Acute cholecystitis Renal / + Renal disease - CKD Musculoskeletal/Pain + Headaches (occ) Pertinent negatives: chronic pain and osteoarthritis Endocrine / Other + Diabetes mellitus Diabetic complications: nephropathy. Outpatient insulin use: current. Pt reported HgA1c: 7.9. Pt reported HgA1c date: 03/2023. Pertinent negatives: thyroid disease Functional Capacity Functional capacity: 4-6 METs Review of Systems + palpitations (occ palpitaion-holter negative) + vision loss (glasses) + heartburn (<1x/wk-none today) + abdominal pain (intermittent) Pertinent negatives: productive cough; wheezing; SOB; recent cold/flu; fever; chest pain; orthopnea; pedal edema; PND; previous transfusion; melena/hematochezia; easy bruising; bleeding problems; syncope; dizziness; muscle weakness; chronic pain; numbness/tingling; hard of hearing; nausea; dysphagia; diarrhea; dentures/partials; chipped/loose teeth; diaphoresis and no unexpected weight change Patient Active Problem List Diagnosis Date Noted Cholecystitis 10/21/2023 Calculus of gallbladder without cholecystitis without obstruction 04/06/2023 Annual physical exam 02/08/2023 Type 2 diabetes mellitus with hyperglycemia, without long-term current use of insulin ([facility]) ([facility]) 02/08/2023 Acute non-recurrent maxillary sinusitis 11/18/2021 Palpitations 11/18/2021 Vasovagal syncope 11/18/2021 Elevated systolic blood pressure reading without diagnosis of hypertension 11/18/2021 Other headache syndrome 10/09/2021 Snoring 03/12/2021 Mixed hyperlipidemia 03/12/2021 Bandemia 03/05/2021 Liver function abnormality 03/05/2021 Stress 03/05/2021 Past Medical History: Diagnosis Date Abdominal pain 02/10/[address] of the abdomen 02/23/2023 Acute pancreatitis Diabetes mellitus (HCC) Diabetic ketoacidosis without coma associated with other specified diabetes mellitus (HCC) 02/10/2023 Elevated glucose 03/05/2021 Vision changes 02/23/2023 History reviewed. No pertinent surgical history. No Known Allergies Med List Status: Pharmacy Complete Set By: [facility] at 10/21/2023 8:50 AM Taking? Last Dose Start Date End Date Provider blood glucose diagnostic (glucose blood) strip -- 02/08/23 02/08/24 Lemuel Frost MD Use as directed to check blood glucose 4 times per day blood-glucose meter kit -- 02/08/23 -- Lemuel Frost MD Use as directed to check blood glucose four times per day fenofibrate nanocrystallized (TRICOR) 145 mg tablet 10/20/2023 02/10/23 -- Lemuel Frost MD Take 1 tablet (145 mg total) by mouth daily Patient taking differently: Take 1 tablet (145 mg total) by mouth nightly insulin glargine (LANTUS, SEMGLEE) 100 unit/mL vial for injection 10/20/2023 05/05/23 03/20/24 Jessica Genao NP Inject 50 Units under the skin nightly Notes: Please give 90 day supply insulin lispro (HumaLOG, ADMELOG) 100 unit/mL vial for injection -- -- -- Provider, MD Shekhar insulin syringe-needle U-100 1 mL 31 gauge x 02/08 syringe -- 02/15/23 -- Lemuel Frost MD Use to inject 1-4 times daily as directed. lancets misc -- 02/08/23 -- Lemuel Frost MD Use as directed to check blood glucose 4 times per day metFORMIN XR (GLUCOPHAGE XR) 500 mg 24 hr tablet 10/20/2023 05/05/23 -- Jessica Genao NP Take 3 tablets nightly. E11.[address] (PROTONIX) 40 mg EC tablet -- -- -- Provider, MD Shekhar pen needle, diabetic 31 gauge x 02/08 needle -- 02/08/23 -- Lemuel Frost MD Use to inject 1-4 times daily as directed. rosuvastatin (CRESTOR) 20 mg tablet 10/20/2023 02/10/23 -- Lemuel Frost MD Take 1 tablet (20 mg total) by mouth daily Patient taking differently: Take 1 tablet (20 mg total) by mouth nightly Current Facility-Administered Medications: acetaminophen (TYLENOL) tablet 975 mg, 975 mg, oral, Once dextrose (GLUTOSE) 40 % gel 15 g, 15 g, oral, Q15 Min PRN OR dextrose (D10W) 10% bolus 250 mL, 250 mL, intravenous, Q15 Min PRN famotidine (PEPCID) tablet 20 mg, 20 mg, oral, Once glucagon injection 1 mg, 1 mg, intramuscular, Q30 Min PRN insulin lispro (HumaLOG, ADMELOG) 100 unit/mL injection 0-5 Units, 0-5 Units, subcutaneous, Q4H KELY [MAR Hold] piperacillin-tazobactam (ZOSYN) 3.375 gram/115 mL in sodium chloride 0.9% (premix) 3.375g, 3.375 g, intravenous, Q8H KELY Social History Tobacco Use Smoking Status Never Smokeless Tobacco Not on file Alcohol Use: Unknown (04/06/2023) AUDIT-C Frequency of Alcohol Consumption: Monthly or less Average Number of Drinks: 1 or 2 Frequency of Binge Drinking: Not on file Substance and Sexual Activity Drug Use Never Family History Problem Relation Age of Onset Cancer Mother Diabetes Mother No Known Problems Father Hypertension Brother Vitals: 10/21/23 0620 10/21/23 0805 10/21/23 0845 BP: (!) 156/107 138/94 142/99 Pulse: 73 76 89 Resp: 18 18 18 Temp: 36.1 ??C (96.9 ??F) SpO2: 99% 97% 97% PT: No results found for requested labs within last 30 days. INR: No results found for requested labs within last 30 days. APTT: No results found for requested labs within last 30 days. Hgb A1C: No results found for requested labs within last 30 days. CBC RBC: 10/21/2023: 4.90 M/cumm RDW: No results found for requested labs within last 30 days. MCHC: 10/21/2023: 36.0 g/dL (H) MCH: 10/21/2023: 30.4 pg MCV: 10/21/2023: 84.5 fL Hct: 10/21/2023: 41.4 % Hgb: 10/21/2023: 14.9 g/dL WBC: 10/21/2023: 8.8 K/cumm MPV: 10/21/2023: 10.3 fL Platelets: 10/21/2023: 316 K/cumm RDW CV: 10/21/2023: 12.7 % RDW Sd: 10/21/2023: 38.9 fL BMP Glucose: 10/21/2023: 256 mg/dL (H) Calcium: 10/21/2023: 9.4 mg/dL Sodium: 10/21/2023: 137 mmol/L Potassium: 10/21/2023: 3.6 mmol/L CO2: 10/21/2023: 24 mmol/L Chloride: 10/21/2023: 100 mmol/L BUN: 10/21/2023: 11 mg/dL Creatinine: 10/21/2023: 0.90 mg/dL STOP-Bang Total Score: 3 DOS Physical Exam Medical history, medications, and allergies reviewed. Attestation: I endorse the findings of the anesthesia pre-evaluation assessment dated: 10/21/2023. Airway Exam: Mallampati: I Cervical ROM: FROM TM distance: normal Patient presents with marmolejo and mustache. Cardiovascular Exam: Rate: regular Rhythm: regular Pulmonary Exam: LCTA, bilat EENT Exam: trachea midline Dental Exam: Appears intact Current state: Patient's current state is cooperative and interactive. Anesthesia Plan ASA 3 My patient is approved for the Anesthesia Controlled Medication protocol when under care of a PUBLISHING SPECIALIST Planned anesthesia: General Team communication plan: oral ET tube Induction: Induction: RSI and intravenous. Postoperative Plan: Postoperative administration opioids intended. No postoperative mechanical ventilation intended. Patient's planned disposition post procedure is Outpatient. Informed Consent: Discussed plan with PUBLISHING SPECIALIST. Anesthesia plan and risks discussed with patient. Plan and Consent Comments: [email or web address] Consent and Attending signature: I and/or my designee have discussed the anesthesia plan, benefits, possible alternatives, parental presence at time of induction (if indicated), and clinically relevant risks that may include dental injury, unintentional awareness, and/or other complications. The patient and/or parent/legal guardian understand, and agree to proceed. All questions answered. NDITIONER documented in this encounter Plan of Treatment Not on file documented as of this encounter Procedures Procedure Name Priority Date/Time Associated Diagnosis Comments DC AN PROCEDURE PLACEHOLDER Routine 10/21/2023 11:08 AM RECONDITIONER DC AN ELECTIVE ENDOTRACHEAL AIRWAY Routine 10/21/2023 11:08 AM RECONDITIONER documented in this encounter Results * DC AN ELECTIVE ENDOTRACHEAL AIRWAY, DC AN PROCEDURE PLACEHOLDER (10/21/2023 11:08 AM RECONDITIONER) Narrative Shi Newman CRNA - 10/21/2023 11:08 AM RECONDITIONER Shi Newman CRNA ? 10/21/2023 11:36 AM Airway Patient location: OR Urgency: elective Indications for airway management: anesthesia and airway protection Difficult airway: no Staff: Placed by: PUBLISHING SPECIALIST: Shi Newman CRNA Emergent airway documentation: Risks and benefits discussed: yes Consent obtained: yes Consent given by: patient Airway prep: Preoxygenated: yes Patient position: sniffing Mask difficulty assessment: 2 - vent by mask + OA or adjuvant Spontaneous ventilation during airway: present Sedation level during airway: GA Final airway details: Final airway type: endotracheal airway Tube type: ETT ETT size: 8.0 mm Cuffed: yes Technique used for successful ETT placement: video laryngoscopy Devices/Methods used in placement: intubating stylet Insertion site: oral Blade type: Cortez Blade size: 3 Cormack-Lehane (direct): grade III - view of epiglottis only Cormack-Lehane (video): grade I - full view of glottis Cuff volume: 8 mL Cuff inflated with: air Placement verified by: auscultation and CO2 detection Airway secured with: other (pink tape) Number of attempts: 3 or more Unsuccessful approach(es) for ETT: direct laryngoscopy Additional comments: Gums/lips/teeth atraumatic, Grade III views with MAC 4, MIL 2, MIL 3 us Chadwick Mckeon MD ANESTHESIA ORDERABLES Edited Result - Final documented in this encounter Visit Diagnoses Not on filedocumented in this encounter Administered Medications Inactive Administered Medications - up to 3 most recent administrations Medication Order MAR Action Action Date Dose Rate Site dexAMETHasone (DECADRON) 4 mg/mL injection intravenous, Administer over 2 Minutes, As needed, Starting on Tue10/21/23 at 1114, Anesthesia Intra-op Given 10/21/2023 11:14 AM RECONDITIONER 8 mg fentaNYL (SUBLIMAZE) preservative free injection intravenous, As needed, Starting on Tue10/21/23 at 1058, Anesthesia Intra-op Given 10/21/2023 10:58 AM RECONDITIONER 100 mcg Lactated Ringer's (LR) infusion intravenous, Continuous PRN, Starting on Tue10/21/23 at 1052, Anesthesia Intra-op New Bag 10/21/2023 10:52 AM RECONDITIONER lidocaine (cardiac) (XYLOCAINE) preservative free injection intravenous, As needed, Starting on Tue10/21/23 at 1058, Anesthesia Intra-op, Indications: Ventricular ArrhythmiasIndications:Ventricul ar Arrhythmias Given 10/21/2023 10:58 AM RECONDITIONER 4 mL midazolam (VERSED) 1 mg/mL injection intravenous, As needed, Starting on Tue10/21/23 at 1052, Anesthesia Intra-op Given 10/21/2023 10:52 AM RECONDITIONER 2 mg ondansetron (ZOFRAN) injection intravenous, Administer over 2 Minutes, As needed, Starting on Tue10/21/23 at 1227, Anesthesia Intra-op Given 10/21/2023 12:27 PM RECONDITIONER 4 mg phenylephrine (AISHA-SYNEPHRINE) 1 mg/10 mL (100 mcg/mL) in sodium chloride 0.9% (premix) intravenous, As needed, Starting on Tue10/21/23 at 1205, Anesthesia Intra-op Given 10/21/2023 12:05 PM RECONDITIONER 100 mcg propofoL (DIPRIVAN) 10 mg/mL IV intravenous, As needed, Starting on 1/26/24 at 1058, Anesthesia Intra-op Bolus 10/21/2023 11:04 AM RECONDITIONER 100 mg Bolus 10/21/2023 11:01 AM RECONDITIONER 100 mg New Bag 10/21/2023 10:58 AM RECONDITIONER 200 mg rocuronium (ZEMURON) injection intravenous, As needed, Starting on Tue10/21/23 at 1058, Anesthesia Intra-op Given 10/21/2023 11:25 AM RECONDITIONER 20 mg Given 10/21/2023 10:58 AM RECONDITIONER 50 mg sugammadex (BRIDION) 100 mg/mL intravenous solution intravenous, As needed, Starting on Tue10/21/23 at 1223, Anesthesia Intra-op Given 10/21/2023 12:23 PM RECONDITIONER 200 mg documented in this encounter Care Teams Crew Team Member Relationship Specialty Start Date End Date Preston Moulton PA PCP - General Family Medicine 03/10/23 documented as of this encounter
--- OUTSIDE RECORDS SUMMARY | 2024-10-02 02:34 | XMS_ITS | Encounter Summary ---
Author Organization [facility] Healthcare Address [address] [place] [address] Care Team Providers Care Vehicle Controls Engineer Name Role Phone Lemuel Frost MD Primary Care Provider + Encounter Details Date Type Department Care Team (Late st Contact Info) Description 03/03/2023 2:50 PM CDT Lab [facility] Building [address] [address] Acute pancreatitis, unspecified complication status, unspecified pancreatitis type; Type 2 diabetes mellitus with hyperglycemia, without long-term current use of insulin (CMS/HCC) ([facility]) Social History Tobacco Use Types Packs/Day Years [...] often do you attend chur ch or taoism services? More than 4 times per year [...] place to sleep or slept in a halfway (including now)? No 02/11/2023 Sex and Gender Information Value Date Recorded Sex Assigned at Not on file Legal Sex Male 9:22 AM GASOLINE FINISHER Gender Identity Male 11/18/2021 1:25 PM GASOLINE FINISHER Sexual Orientation Straight 11/18/2021 1: 25 PM GASOLINE FINISHER documented as of this encounter Plan of Treatment Not on file documented as of this encounter Procedures Procedure Name Priority Date/Time Associated Diagnosis Comments EGFR Routine 03/03/2023 3:08 PM CDT Acute pancreatitis, unspecified complication status, unspecified pancreatitis type LIPASE Routine 03/03/2023 3:08 PM CDT Acute pancreatitis, unspecified complication status, unspecified pancreatitis type HEMOGLOBIN A1C STAT 03/03/2023 3:08 PM CDT Type 2 diabetes mellitus with hyperglycemia, without long-term current use of insulin (CMS/HCC) (HCC) COMPREHENSIVE METABOLIC PANEL Routine 03/03/2023 3:08 PM CDT Acute pancreatitis, unspecified complication status, unspecified pancreatitis type documented in this encounter Results * eGFR (03/03/2023 3:08 PM CDT) [facility] eGFR 108 mL/min/1. 73 m2 ELLIOT HINES Comment: Interpretive [...] was last reviewed 2021. Testing performed by: [facility], [address] [place] [address]., [id number] Blood 03/03/2023 3:08 PM CDT 03/03/2023 4:00 PM CDT Preston GLASER LAB BLOOD ORDERABLES Final Resu lt Performing Organization Address [facility] Co de Phone Number ELLIOT [address] [place] [address] * (ABNORMAL) Hemoglobin A1c (03/03/2023 3:08 PM CDT) Hgb A1C 10.4(H) 4.0 - 5.6 % ELLIOT Comment:Testing performed by : [address] [address] Estimated Average Glucose 252 mg/dL ELLIOT Comment: The ADA recommends reporting an estimated Average Glucose (eAG) with all Hemoglobin A1c results using the equation derived from a study of 507 normal and diabetic adults. ??Minority populations were underrepresented and children were not included. ?? (Diabetes Care 31:8063-5709, 2008). ??The eAG is not equivalent to a fasting glucose. Testing performed by: [address] [address] Blood 03/03/2023 3:08 PM CDT 03/03/2023 4:00 PM CDT Preston GLASER LAB BLOOD ORDERABLES Final Resu lt Performing Organization Address [facility] Co de Phone Number ELLIOT [address] [address] * (ABNORMAL) Lipase (03/03/2023 3:08 PM CDT) Lipase 135(H) 10 - 99 Units/L ELLIOT Comment:Testing performed by : [address] [address] Blood 03/03/2023 3:08 PM CDT 03/03/2023 4:00 PM CDT Preston GLASER LAB BLOOD ORDERABLES Final Resu lt ELLIOT [address] [facility] [place] [address] * Comprehensive metabolic panel (03/03/2023 3:08 PM CDT) Sodium 139 135 - 145 mmol/L ELLIOT Comment:Testing performed by : [address] [address] Potassium, pl 3.8 3.3 - 4.9 mmol/L ELLIOT Comment:Testing performed by : [address] [address] Chloride 104 97 - 110 mmol/L ELLIOT Comment:Testing performed by : [address] [address] CO2 26 22 - 32 mmol/L ELLIOT Comment:Testing performed by : [address] [address] Anion gap 9 2 - 15 mmol/L ELLIOT Comment:Testing performed by : [address] [address] BUN 13 8 - 25 mg/dL ELLIOT Comment:Testing performed by : [address] [address] Creatinine 0.90 0.80 - 1.30 mg/dL ELLIOT Comment:Testing performed by : [address] [address] Glucose 99 70 - 199 mg/dL ELLIOT [...] was last revised 2022. Testing performed by: [address] [address] Calcium 9.7 8.5 - 10.3 mg/dL ELLIOT Comment:Testing performed by : [facility], [address] [place] [address]., [address] Bilirubin, total 0.6 0.1 - 1.2 mg/dL ELLIOT Comment:Testing performed by : [facility], [address] [place] [address]., [address] Protein, pl 7.2 6.5 - 8.5 g/dL ELLIOT Comment:Testing performed by : [facility], [address] [place] [address]., [address] Albumin 4.3 3.5 - 5.0 g/dL ELLIOT Comment:Testing performed by : [address] [address] Alk phos 61 40 - 130 Units/L ELLIOT Comment:Testing performed by : [address] [address] ALT 28 7 - 55 Units/L ELLIOT Comment:Testing performed by : [facility], [address] [place] [address]., [address] AST 22 10 - 50 Units/L [facility] Comment:Testing performed by : [address] [address] Blood 03/03/2023 3:08 PM CDT 03/03/2023 4:00 PM CDT Preston GLASER LAB BLOOD ORDERABLES Final Resu lt ELLIOT [address] [facility] [place] [address] documented in this encounter Visit Diagnoses Diagnosis Acute pancreatitis, unspecified complication status, unspecified pancreatitis type Type 2 diabetes mellitus with hyperglycemia, without long-term current use of insulin (HCC) documented in this encounter Care Teams Vehicle Controls Engineer Relationship Specialty Start Date End Date Lemuel Frost MD [address] [place] [id number] PCP - General Family Medicine 10/09/21 03/09/23 documented as of this encounter
--- OUTSIDE RECORDS SUMMARY | 2024-10-02 02:34 | XMS_ITS | Encounter Summary ---
Author Organization [facility] Healthcare Address [address] [place] [address] Care Team Providers Care Band Leader Name Role Phone Preston Moulton Primary Care Provider [phone] Nelly Roy LPN Unavailable [phone] Reason for Visit * Reason Comments Unsuccessful Phone Call 1 Day 1 - Attemp t 1 - Unable to Contact Unsuccessful Phone Call 2 Day 1 - Attemp t 2 - Unable to Contact Encounter Details Date Type Department Care Team (Late st Contact Info) Description 10/24/2023 ABDIEL IP Outreach [facility] Accountable Care Organization [address] [place] [address] Nelly Roy LPN [address] [place] [address] [address] [place] [address] Social History Tobacco Use Types Packs/Day Years [...] often do you attend chur ch or moravian services? More than 4 times per year 02/11/2023 Do you belong to any clubs o r organizations such as rastafari groups, unions, fraternal or athletic groups, or [...] place to sleep or slept in a long term (including now)? No 02/11/2023 Personal Safety Answer Date Recorded Have you ever been in or are you currently in a harmful physical or emotional relationship or is someone making you feel afraid or unsafe? Denies 10/21/2023 Sex and Gender Information Value Date Recorded Sex Assigned at Not on file Legal Sex Male 9:22 AM SENIOR VISUAL DESIGNER Gender Identity Male 11/18/2021 1:25 PM SENIOR VISUAL DESIGNER Sexual Orientation Straight 11/18/2021 1: 25 PM SENIOR VISUAL DESIGNER documented as of this encounter Plan of Treatment Not on file documented as of this encounter Visit Diagnoses Not on filedocumented in this encounter Care Teams Band Leader Relationship Specialty Start Date End Date Preston Moulton PA PCP - General Family Medicine 03/10/23 Nelly Roy LPN [address] [place] [address] [address] [place] [id number] Medical Insurance Biller 10/24/23 10/25/23 documented as of this encounter
--- OUTSIDE RECORDS SUMMARY | 2024-10-02 02:34 | XMS_ITS | Encounter Summary ---
Author Organization [facility] Healthcare Address [address] [place] [address] Care Team Providers Care Sandwich Artist Name Role Phone Preston Moulton Primary Care Provider [phone] Reason for Visit * Reason Onset Date Comments Appointment Request 11/16/2023 Encounter Details Date Type Department Care Team ([facility] st Contact Info) Description 11/16/2023 Telephone [facility] Medical Group Primary Care [facility] [address] [place] [address] Preston Moulton PA [address] [place] [address] Appointment Request Social History Tobacco Use Types Packs/Day [...] often do you attend chur ch or jew services? More than 4 times per year 02/11/2023 Do you belong to any clubs o r organizations such as sikhism groups, unions, fraternal or athletic groups, or [...] place to sleep or slept in a usp (including now)? No 02/11/2023 Personal Safety Answer Date Recorded Have you ever been in or are you currently in a harmful physical or emotional relationship or is someone making you feel afraid or unsafe? Denies 10/21/2023 Sex and Gender Information Value Date Recorded Sex Assigned at Not on file Legal Sex Male 9:22 AM STATE SUPERINTENDENT OF SCHOOLS Gender Identity Male 11/18/2021 1:25 PM STATE SUPERINTENDENT [employer] Sexual Orientation Straight 11/18/2021 1: 25 PM STATE SUPERINTENDENT OF SCHOOLS documented as of this encounter Miscellaneous Notes * Telephone Encounter - Julia Gong LPN - 11/16/2023 2:59 PM CST Appointment scheduled. E SUPERINTENDENT OF SCHOOLS * Telephone Encounter - Galina Lainez - 11/16/2023 1:46 PM CST Call Back Caller???s Concern: reference 10.26.23 CARE DRAFTING ENGINEER ABDIEL IP encounter. Pt returning call but outside ofTOC window. Called backline for assistance. He was scheduled in a new patient slot for 2.27.24 @ 9:45a, but this time will not work for him. Nothing available until 3.18.24 @ 2:45p, which is too far out. He reports he is a TYPE II diabetic. requesting to be switched to mounjaro. He injects insulin shots in stomach 4x/day, which is causing real discomfort. It is very tender, especially after gallbladder surgery 10.21.23. Requesting call back to discuss options. Also, inquiring if ALFREDITO Moulton is disengaging? Please advise. Does message need to be routed? Yes-Action Needed E SUPERINTENDENT OF SCHOOLS documented in this encounter Plan of Treatment Not on file documented as of this encounter Visit Diagnoses Not on filedocumented in this encounter Care Teams Sandwich Artist Relationship Specialty Start Date End Date Preston Moulton PA PCP - General Family Medicine 03/10/23 documented as of this encounter
--- OUTSIDE RECORDS SUMMARY | 2024-10-02 02:34 | XMS_ITS | Encounter Summary ---
Author Organization [facility] Medical Group Address [address] [place] [address] Care Team Providers Care Burial Vault Maker Name Role Phone Preston Moulton Primary Care Provider [phone] Reason for Visit * Reason Onset Date Comments Medical Question/Miscellaneous 04/19/2023 Encounter Details Date Type Department Care Team (Late st Contact Info) Description 04/19/2023 Telephone [facility] Medical Group Primary Care [address] [facility] [address] [place] [address] Preston Moulton PA [address] [place] [address] Medical Question/Miscellaneous Social History Tobacco Use Types Packs/Day Years [...] often do you attend chur ch or mormonism services? More than 4 times per year [...] place to sleep or slept in a group home (including now)? No 02/11/2023 Sex and Gender Information Value Date Recorded Sex Assigned at Not on file Legal Sex Male 9:22 AM FREIGHT TRUCKER Gender Identity Male 11/18/2021 1:25 PM FREIGHT TRUCKER Sexual Orientation Straight 11/18/2021 1: 25 PM FREIGHT TRUCKER documented as of this encounter Miscellaneous Notes * Telephone Encounter - Betsy Salinas MA - 04/19/2023 3:15 PM CDT Notified patient that letter is ready to be picked up. Patient verbally understands * Telephone Encounter - Betsy Salinas MA - 04/19/2023 2:35 PM CDT PABoyer-okay for letter? * Telephone Encounter - Ashley Wright - 04/19/2023 12:20 PM CDT Medical Question/Miscellaneous Caller???s Concern: patient is needing a letter or something in writing stating that he is a diabetic and has to have needles and medication with him on the plane because he is going out of town would like to chart picker today if possible Caller???s Call back #: [phone] Does message need to be routed? Yes-Action Needed documented in this encounter Plan of Treatment Not on file documented as of this encounter Visit Diagnoses Not on filedocumented in this encounter Care Teams Burial Vault Maker Relationship Specialty Start Date End Date Preston Moulton PA PCP - General Family Medicine 03/10/23 documented as of this encounter
--- OUTSIDE RECORDS SUMMARY | 2024-10-02 02:34 | XMS_ITS | Encounter Summary ---
Author Organization [facility] Medical Group Address [address] [place] [address] Care Team Providers Care Clinical Data Management Director Name Role Phone Preston Moulton Primary Care Provider [phone] Reason for Visit * Reason Onset Date Comments return back to work 03/17/2023 Encounter Details Date Type Department Care Team (Late st Contact Info) Description 03/17/2023 Telephone [facility] Medical Group Primary Care [address] [facility] [address] [place] [address] Preston Moulton PA [address] [place] [address] return back to work Social History Tobacco Use Types Packs/Day Years [...] often do you attend chur ch or voodoo services? More than 4 times per year 02/11/2023 Do you belong to any clubs o r organizations such as islam groups, unions, fraternal or athletic groups, or [...] to sleep or slept in a senior living (including now)? No 02/11/2023 Sex and Gender Information Value Date Recorded Sex Assigned at Not on file Legal Sex Male 9:22 AM REVIEWER SALES Gender Identity Male 11/18/2021 1:25 PM REVIEWER SALES Sexual Orientation Straight 11/18/2021 1: 25 PM REVIEWER SALES documented as of this encounter Miscellaneous Notes * Telephone Encounter - Betsy Salinas MA - 03/17/2023 4:30 PM CDT I just need a letter saying I can return back to work on Tuesday with zero restrictions. If I could get that today before you all leave since you are off tomorrow or else I will not be allowed back towork without a note. documented in this encounter Plan of Treatment Not on file documented as of this encounter Visit Diagnoses Not on filedocumented in this encounter Care Teams Clinical Data Management Director Relationship Specialty Start Date End Date Preston Moulton PA PCP - General Family Medicine 03/10/23 documented as of this encounter
--- OUTSIDE RECORDS SUMMARY | 2024-10-02 02:34 | XMS_ITS | Encounter Summary ---
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 More than 4 times per year 02/11/2023 Do you belong to any clubs o r organizations such as voodoo groups, unions, fraternal or athletic groups, or [...] on file Legal Sex Male 9:22 AM CALL CENTER OPERATIONS MANAGER Gender Identity Male 11/18/2021 1:25 PM CALL CENTER OPERATIONS MANAGER Sexual Orientation Straight 11/18/2021 1: 25 PM CALL CENTER OPERATIONS MANAGER documented as of this encounter Miscellaneous Notes * Telephone Encounter - Julia Gong LPN - 11/01/2023 11:06 AM CST Patient never returned call to office. CENTER OPERATIONS MANAGER * Telephone Encounter - Julia Gong LPN - 10/28/2023 10:34 AM CALL CENTER OPERATIONS MANAGER LMOVM to call office. CENTER OPERATIONS MANAGER * Telephone Encounter - Nelly Roy LPN - 10/26/2023 8:12 AM CALL CENTER OPERATIONS MANAGER Care dance coach has attempted to reach patient for the past three days and four attempts regarding patients recent inpatient discharge from [facility] on 10/21/2023 - 10/22/2023 (33 hours) forType 2 diabetes mellitus with hyperglycemia, with long-term current use of insulin, Mixed hyperlipidemia, RUQ pain, and Calculus of gallbladder with acute cholecystitis without obstruction. Please have someone within the office attempt to contact patient and schedule patient a follow up with primary care provider by October 29. CENTER OPERATIONS MANAGER documented in this encounter Plan of Treatment Not on file documented as of this encounter Visit Diagnoses Not on filedocumented in this encounter Care Teams Manager Of Application Development Relationship Specialty Start Date End Date Preston Moultno PA PCP - General Family Medicine 03/10/23 documented as of this encounter
--- OUTSIDE RECORDS SUMMARY | 2024-10-02 02:34 | XMS_ITS | Encounter Summary ---
Author Organization [facility] Healthcare Address [address] [place] [address] Care Team Providers Care Evp General Counsel Name Role Phone Preston Moulton Primary Care Provider [phone] Reason for Visit * Reason Comments Unsuccessful Phone Call 4 Day 3 - Attemp t 4 - Unable to Contact Encounter Details Date Type Department Care Team (Late st Contact Info) Description 10/26/2023 ABDIEL IP Outreach [facility] Accountable Care Organization [address] [place] [address] Nelly Roy LPN [address] [place] [address] [address] [place] [address] Social History Tobacco Use Types Packs/Day Years [...] often do you attend chur ch or congregational services? More than 4 times per year 02/11/2023 Do you belong to any clubs o r organizations such as shinto groups, unions, fraternal or athletic groups, or [...] on file Legal Sex Male 9:22 AM CREDIT INTERVIEWER Gender Identity Male 11/18/2021 1:25 PM CREDIT INTERVIEWER Sexual Orientation Straight 11/18/2021 1: 25 PM CREDIT INTERVIEWER documented as of this encounter Progress Notes * Nelly Roy LPN - 10/26/2023 8:10 AM CST Care head men's tennis coach has attempted to reach patient for the past three days and four attempts regarding patients recent inpatient discharge from [facility] on 10/21/2023 - 10/22/2023 (33 hours) forType 2 diabetes mellitus with hyperglycemia, with long-term current use of insulin, Mixed hyperlipidemia, RUQ pain, and Calculus of gallbladder with acute cholecystitis without obstruction. Care head men's tennis coach will be sending a message to primary care providers office for them to attempt to reach patient and schedule patient by October 29. Care head men's tennis coach will be closing up episode unless patient calls care head men's tennis coach back. Nelly Roy LPN, ACO Care Director Of Psychiatry [facility] Accountable Care Organization / [facility] Medical Group Contact E-Mail - [email or web address] or [phone] IT INTERVIEWER documented in this encounter Plan of Treatment Not on file documented as of this encounter Visit Diagnoses Not on filedocumented in this encounter Care Teams Evp General Counsel Relationship Specialty Start Date End Date Preston Moulton PA PCP - General Family Medicine 03/10/23 documented as of this encounter
--- OUTSIDE RECORDS SUMMARY | 2024-10-02 02:34 | XMS_ITS | Encounter Summary ---
Author Organization [facility] Address [address] [place] [address] Care Team Providers Care Infrastructure Security Architect Name Role Phone Sena Moulton Primary Care Provider [phone] Reason for Visit * Reason Comments Hospital Follow Up gallbladder Encounter Details Date Type Department Care Team (Latest Contact Info) Description 04/06/2023 3:00 PM CDT Office Visit [facility] Primary Care [address] [place] [address] Sena Moulton PA [address] [place] [address] Type 2 diabetes mellitus with hyperglycemia, without long-term current use of insulin (CMS/HCC) (HCC) (Primary Dx); Dyslipidemia; Calculus of gallbladder without cholecystitis without obstruction Social History Tobacco Use Types Packs/Day Years [...] How often do you attend chur or congregation services? More than 4 times per year 02/11/2023 Do you belong to any clubs o r organizations such as jewish groups, unions, fraternal or athletic groups, or [...] place to sleep or slept in a m[facility]p (including now)? No 02/11/2023 Sex and Gender Information Value Date Recorded Sex Assigned at Not on file Legal Sex Male 9:22 AM VISITOR SERVICES ASSISTANT Gender Identity Male 11/18/2021 1:25 PM VISITOR SERVICES ASSISTANT Sexual Orientation Straight 11/18/2021 1: 25 PM VISITOR SERVICES ASSISTANT documented as of this encounter Last Filed Vital Signs Vital Sign Reading Time Taken Comments Blood Pressure 118/80 04/06/2023 2:37 PM CDT Pulse 82 04/06/2023 2:37 PM CDT Temperature 36.4 ??C (97.5 ??F) 04/06/2023 2:37 PM CD T Respiratory Rate 16 04/06/2023 2:37 PM CDT Oxygen Saturation 99% 04/06/2023 2:37 PM CDT Inhaled Oxygen Concentration - - Weight 76.7 kg (169 lb) 04/06/2023 2:37 PM CDT Height 172.7 cm (5' 8 ) 04/06/2023 2:37 PM CDT Body Mass Index 25.7 04/06/2023 2:37 PM CDT documented in this encounter Progress Notes * Sena Moulton, ALFREDITO - 04/06/2023 3:00 PM CDT Images from the original note were not included. Subjective/Objective Patient ID: Chadwick Holcomb is a 43 y.o. male. Chief Complaint Hospital Follow Up (gallbladder) Vitals: 04/06/23 1437 BP: 118/80 BP Location: Left arm Patient Position: Sitting Pulse: 82 Resp: 16 Temp: 36.4 ??C (97.5 ??F) TempSrc: Temporal SpO2: 99% Weight: 76.7 kg (169 lb) Height: 172.7 cm (5' 8 ) Patient is in for routine follow-up for the following medical conditions labs and medications. Patient started with pain epigastric, RUQ and radiated to back, at work s/s increased, was in pain,went to ER, they worked him up and he was told it was gallbladder attack, had CT, spoke to surgeon Past Medical History: Diagnosis Date Diabetes mellitus (HCC) History reviewed. No pertinent surgical history. No Known Allergies Social History Tobacco Use [...] hyperglycemia, without long-term current use of insulin ([facility]) ([facility]) (Primary) Assessment & Plan: CPM, getting new A1c Orders: - Hemoglobin A1c; Future Dyslipidemia Assessment & Plan: Labs as ordered Orders: - Lipid panel; Future Calculus of gallbladder without cholecystitis without obstruction Assessment & Plan: Low fat diet, f/u with Dr Moyer, go to ER for another attack Orders: - Ambulatory referral to General Surgery; Future Orders Placed This Encounter Procedures Lipid panel Standing Status: Future Standing Expiration Date: 04/06/2024 Hemoglobin A1c Standing Status: Future Standing Expiration Date: 04/06/2024 Ambulatory referral to General Surgery Patient ws seen in ER, had gallstones and sludge along with s/s. Please see, eval and discuss option sof treatment Standing Status: Future Standing Expiration Date: 10/07/2023 Referral Priority: Routine Referral Type: Consultation Referral Reason: Specialty Services Required Referral Location: External Order Requested Specialty: General Surgery Number of Visits Requested: 1 Body mass index is 25.7 kg/m??. BMI Follow-up includes: nutrition counseling, exercise counseling, and education provided. *This note is dictated using [employer] medical voice recognition software, variances in spelling and vocabulary are possible and unintentional.* ALFREDITO Rivas documented in this encounter Miscellaneous Notes * Assessment & Plan Note - Sena Moulton PA - 04/06/2023 3:07 PM CDTAssociated Problem(s): Calculus of gallbladder without cholecystitis without obstruction Low fat diet, f/u with Dr Moyer, go to ER for another attack * Assessment & Plan Note - Sena Moulton PA - 04/06/2023 3:06 PM CDTAssociated Problem(s): Type 2 diabetes mellitus with hyperglycemia, with long-term current use of insulin (HCC) CPM, getting new A1c * Assessment & Plan Note - Sena Moulton PA - 04/06/2023 3:06 PM CDTAssociated Problem(s): Dyslipidemia (Deleted) Labs as ordered * Assessment & Plan Note - Jessica Genao NP - 04/06/2023 3:00 PM CDTAssociated Problem(s): Mixed hyperlipidemia >>ASSESSMENT AND PLAN FOR DYSLIPIDEMIA WRITTEN ON 04/06/2023 3:06 PM BY SENA MOULTON PA Labs as ordered documented in this encounter Plan of Treatment Not on file documented as of this encounter Results * (ABNORMAL) Hemoglobin A1c (04/13/2023 1:35 PM CDT) Hgb A1C 7.6(H) 4.0 - 5.6 % [facility] Comment:Testing performed by : [address] [address] Estimated Average Glucose 171 mg/dL [facility] Comment: The ADA recommends reporting an estimated Average Glucose (eAG) with all Hemoglobin A1c results using the equation derived from a study of 507 normal and diabetic adults. ??Minority populations were underrepresented and children were not included. ?? (Diabetes Care 31:5574-7710, 2008). ??The eAG is not equivalent to a fasting glucose. Testing performed by: [facility], [address] [place] [address]., [address] Blood 04/13/2023 1:35 PM CDT 04/13/2023 3:45 PM CDT Sena GLASER LAB BLOOD ORDERABLES Final Resu lt [facility] [address] [place] [address] * (ABNORMAL) Lipid panel (04/13/2023 1:35 PM CDT) Cholesterol 134 30 - 199 mg/dL [facility] Comment: Interpretive Data Ages < [...] last revised on 2018. Testing performed by: [address] [address] Triglycerides 186(H) <=149 mg/dL [facility] Comment: Interpretive Data Ages < [...] last revised on 2018. Testing performed by: [address] [address] HDL 34(L) >=40 mg/dL [facility] Comment: Interpretive Data Ages [...] last revised on 2018. Testing performed by: [address] [address] LDL, calculated 63 <=129 mg/dL [facility] Comment: Interpretive Data Ages < [...] last revised on 2018. Testing performed by: [address] [address] Non-HDL Cholesterol 100 mg/dL [facility] Comment: Interpretive Data Ages < [...] last revised on 2018. Testing performed by: [address] [address] Chol/HDL ratio 4 [facility] Comment:Testing performed by : [address] [address] Blood 04/13/2023 1:35 PM CDT 04/13/2023 3:45 PM CDT Sena GLASER LAB BLOOD ORDERABLES Final Resu lt [facility] [address] [place] [address] documented in this encounter Visit Diagnoses Diagnosis Type 2 diabetes mellitus with hyperglycemia, without long-term current use of insulin (HCC)- Primary Dyslipidemia Other and unspecified hyperlipidemia Calculus of gallbladder without cholecystitis without obstruction documented in this encounter Care Teams Infrastructure Security Architect Relationship Specialty Start Date End Date Sena Moulton PA PCP - General Family Medicine 03/10/23 documented as of this encounter
--- OUTSIDE RECORDS SUMMARY | 2024-10-02 02:34 | XMS_ITS | Encounter Summary ---
Author Organization [facility] Address [address] [place] [address] Care Team Providers Care Occupational Therapist Assistants Name Role Phone Preston Moulton Primary Care Provider [phone] Encounter Details Date Type Department Care Team (Late st Contact Info) Description 05/09/2023 Orders Only [facility] Primary Care [address] [place] [address] Preston Moulton PA [address] [place] [address] Social History Tobacco Use Types [...] often do you attend chur ch or alevism services? More than 4 times per year 02/11/2023 Do you belong to any clubs o r organizations such as restorationist groups, unions, fraternal or athletic groups, or [...] place to sleep or slept in a m[facility] (including now)? No 02/11/2023 Sex and Gender Information Value Date Recorded Sex Assigned at Not on file Legal Sex Male 9:22 AM REWORKER Gender Identity Male 11/18/2021 1:25 PM REWORKER Sexual Orientation Straight 11/18/2021 1: 25 PM REWORKER documented as of this encounter Ordered Prescriptions Prescription Sig Dispense Quantity Refills Last Filled Start Date End Date pantoprazole DR (PROTONIX) 40 mg EC tabletIndications: Stress Ulcer Prophylaxis Take 1 tablet (40 mg total) by mouth 2 (two) times a day 60 tablet 3 05/09/2023 10/21/2023 documented in this encounter Plan of Treatment Not on file documented as of this encounter Visit Diagnoses Not on filedocumented in this encounter Discontinued Medications Medication Sig Discontinue Reason Start Date End Da te pantoprazole DR (PROTONIX) 40 mg EC tabletIndications:Stress Ulcer Prophylaxis Take 1 tablet (40 mg total) by mouth 2 (two) times a day Reorder 05/05/2023 05/09/2023 documented as of this encounter Care Teams Occupational Therapist Assistants Relationship Specialty Start Date End Date Preston Moulton PA PCP - General Family Medicine 03/10/23 documented as of this encounter
--- OUTSIDE RECORDS SUMMARY | 2024-10-02 02:34 | XMS_ITS | Encounter Summary ---
Author Organization [facility] Address 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 Phone Preston Moulton Primary Care Provider [phone] Reason for Visit * Reason Onset Date Comments Back Pain 03/30/2023 Chest Wall Pain 03/30/2023 Abdominal Pain 03/30/2023 Encounter Details Date Type Department Care Team (Late st Contact Info) Description 03/30/2023 Nurse Triage [facility] Primary Care [address] [place] [address] Coleen Leal RN Social History Tobacco Use Types Packs/Day Years [...] any clubs o r organizations such as pentecostal groups, unions, fraternal or athletic groups, or [...] place to sleep or slept in a chcf (including now)? 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 Patient decided while we were talking that he is going to head over to the ER, [facility], so I did not reach out to Preston GLASER for ED Now disposition, I agreed that this is an appropriate disposition, he just wants an update sent to Preston. Right mid to upper abdominal pain that wraps around to the back, under ribs, pain 8/10, sweating, has to double over to feel better, left work because the effort was too much, sometimes has right side chest pain. Skin and eye color normal, does not think he has a fever. 02/10-02/15 hospitalization for diabetic ketoacidosis without coma and acute prancreatitis. States BSs have been a lot better thanthey were but reached the 300s yesterday after eating a thin crust pizza. BS 199 this morning aftereating breakfast. Encouraged to call back if there are further questions or concerns. Encouraged to call back if symptoms persist or worsen. * Telephone Encounter - Coleen Leal RN - 03/30/2023 8:10 AM CDT Regarding: Severe Right Rib/Back Pain ----- Message from Brad Ferrell MA sent at 03/30/2023 7:25 AM CDT ----- Symptom Based Call Caller's Callback #: [phone] Chief Complaint(s): Severe Right Rib/Back Pain Duration: Started this morning What type of symptom(s) is the patient experiencing? Red Flag. Is the patient concerned they are experiencing a medical emergency requiring an ambulance? No Additional Comments: Patient states he was discharged from the hospital on 02.15.23 due to pancreatitis and has not had any issues arise since. Patient woke up this morning and is having right rib pain that radiates to back area and rates pain 8.5/10. Patient is currently at work and seeking clinical advice. Patient states no other symptoms today. Does message need to be routed? 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
--- OUTSIDE RECORDS SUMMARY | 2024-10-02 02:34 | XMS_ITS | Encounter Summary ---
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 More than 4 times per year 02/11/2023 Do you belong to any clubs o r organizations such as zoroastrianism groups, unions, fraternal or athletic groups, or [...] place to sleep or slept in a jail (including now)? No 02/11/2023 Sex and Gender Information Value Date Recorded Sex Assigned at Not on file Legal Sex Male 9:22 AM CREDIT COORDINATOR Gender Identity Male 11/18/2021 1:25 PM CREDIT COORDINATOR Sexual Orientation Straight 11/18/2021 1: 25 PM CREDIT COORDINATOR documented as of this encounter Last Filed Vital Signs Vital Sign Reading Time Taken Comments Blood Pressure 127/89 03/30/2023 8:14 PM CDT Pulse 77 03/30/2023 8:15 PM CDT Temperature 36.7 ??C (98.1 ??F) 03/30/2023 9:11 AM CD T Respiratory Rate 18 03/30/2023 8:14 PM CDT Oxygen Saturation 98% 03/30/2023 8:14 PM CDT Inhaled Oxygen Concentration - - Weight 76.4 kg (168 lb 6.9 oz) 03/30/2023 9:11 A M CDT Height 172.7 cm (5' 8 ) 03/30/2023 9:11 AM CDT Body Mass Index 25.61 03/30/2023 9:11 AM CDT documented in this encounter Discharge Instructions * Discharge Instructions* Kathy Morales PA - 03/30/2023 8:12 PM CDT Call general surgeon, Dr. Moyre, to make an appointment for outpatient follow-up of gallbladder abnormality. Return immediately if you develop new or worsening symptoms including significantly worsening pain or nausea and vomiting. Follow-up as recommended is mandatory. You have received emergency care only at your visit today. This is not a substitute for ongoing care, further evaluation and treatment and therefore follow-up as directed is not optional but mandatory You MUST follow up for further evaluation of all incidental abnormal radiographic and laboratory findings, Have your physician obtain records from this visit and address all the incidental abnormal findings. This may include final results of lab testing, cultures, final x-ray reports which may not have been available during the time of the visit. Return immediately for any new symptoms, worsening of symptoms, or persistent symptoms * Attachments The following attachments cannot be sent through Care Everywhere. * Biliary Colic (AfterCare(R) Instructions(ER/ED)) (Malaysian) documented in this encounter Medications at Time of Discharge blood glucose diagnostic (glucose blood) stripIndications:Type 2 [...] daily as directed. 300 each 4 02/08/2023 fenofibrate nanocrystallized (TRICOR) 145 mg tabletIndications:Hyp ertriglyceridemia Take 1 tablet (145 mg total) by mouth daily 90 tablet 3 02/10/2023 03/19/20 24 insulin glargine (LANTUS, SEMGLEE) 100 unit/mL vial for injectionIndications: Type 2 diabetes mellitus with hyperglycemia, without long-term current use of insulin (HCC) Inject 75 Units under the skin nightly 60 mL 3 03/03/2023 05/05/20 23 insulin lispro (HumaLOG, ADMELOG) 100 unit/mL vial for injectionIndications: Diabetes Mellitus Inject 10 Units under the skin 3 (three) times a day with meals 30 mL 3 03/03/2023 05/05/20 23 metFORMIN XR (GLUCOPHAGE XR) 500 mg 24 hr tabletIndications:Typ e 2 diabetes mellitus with hyperglycemia, without long-term current use of insulin (HCC) Take 1 tablet (500 mg total) by mouth 2 (two) times a day before breakfast and lunch 360 tablet 1 02/08/2023 05/05/[address] (PROTONIX) 40 mg EC tabletIndications:Str ess Ulcer Prophylaxis Take 1 tablet (40 mg total) by mouth 2 (two) times a day 60 tablet 1 02/15/2023 05/05/20 23 rosuvastatin (CRESTOR) 20 mg tabletIndications:Hyp ertriglyceridemia Take 1 tablet (20 mg total) by mouth daily 90 tablet 3 02/10/2023 03/20/20 24 documented as of this encounter Discharge Disposition Disposition Code Departure Means Destination Comment s Discharge to home or self care documented in this encounter Consult Notes * Sandeep Moyer, - 03/30/2023 3:53 PM CDTAssociated Order(s): IP CONSULT TO GENERAL SURGERY [facility] Consult Note CC: abdominal pain HPI: This is a 42 y.o. male with history of diabetes who was recently admitted for pancreatitis thought to be due to undiagnosed diabetes and hypertriglyceridemia approximately 6 weeks ago. Presents to the ED today with epigastric abdominal pain that started this morning. He states this started as a dull cramping he thought it was just from sleeping on his right side wrong. On his way to work he began to have more epigastric pain that became severe and approximately 8/10. He admits to nausea, but no vomiting. He states that he is no longer having any pain. He states he is never had pain like this in the past. He denies any change in his bowel habits. He states when he had his last bout of pancreatitis he had no pain. PMH: Past Medical History: Diagnosis Date Diabetes mellitus (HCC) PSH: No past surgical history on file. Medications: No current facility-administered medications for this [...] Inject 75 Units under the skin nightly 60 mL 3 insulin lispro (HumaLOG, ADMELOG) 100 unit/mL vial for injection Inject 10 Units under the skin 3 (three) times a day with meals 30 mL 3 insulin syringe-needle U-100 1 mL [...] total) by mouth daily 90 tablet 3 Social History: Social History Tobacco Use Smoking status: Never Smokeless tobacco: Not on file Substance and Sexual Activity Drug use: Never Sexual activity: Defer Alcohol Use: Unknown (03/03/2023) AUDIT-C Frequency of Alcohol Consumption: Monthly or less Average Number of Drinks: 1 or 2 Frequency of Binge Drinking: Not on file Family History: Family History Problem Relation Age of Onset Cancer Mother Diabetes Mother No Known Problems Father Hypertension Brother Review of Systems: A 12 point review of systems was performed and was negative unless otherwise stated in the HPI. Physical Exam: Vital signs: Temp: [36.7 ??C (98.1 ??F)] 36.7 ??C (98.1 ??F) Pulse: [79-84] 83 Resp: [16-18] 16 BP: (123-144)/(90-95) 123/90 Gen: NAD, A&Ox3 HEENT: NC/AT, EOMI, mucous membranes moist CV: Regular rate and Rhythm Resp: Nonlabored respirations, symmetrical chest rise Abd: Soft, nontender, nondistended Ext: No edema throughout Integumentary: skin warm and dry, no rashes noted Neuro: CN II-XII grossly intact Psychiatric: Cooperative Diagnostic data: CT scan of the abdomen and pelvis: IMPRESSION: 1. Small amount of pericholecystic fluid. Suspected mild adjacent hepatic parenchymal hyperenhancement, which may reflect hyperemia in the setting of acute cholecystitis. No gallstones, significant gallbladder wall thickening, or adjacent inflammatory stranding. Further evaluation with ultrasound or a HIDA scan is suggested. 2. Hepatic steatosis. Right upper quadrant ultrasound: IMPRESSION: Cholelithiasis and/or gallbladder sludge with borderline edematous gallbladder wall thickening and a trace amount of pericholecystic fluid, and findings may be reactive to the pancreatitis, however cholecystitis can not be entirely excluded. Further evaluation with HIDA scan is recommended as clinically indicated. Diffuse hepatic steatosis. I reviewed the recent laboratory results Recent Labs Lab Units 03/30/23 0936 WBC K/cumm 12.2* HEMOGLOBIN g/dL 13.1 HEMATOCRIT % 37.2* Assessment and plan: This is a 42 y.o. male who I was asked to see in consult for possible acute cholecystitis. After performing history and physical exam independently reviewing the CT scan and ultrasound his findings of fairly equivocal. He does have a leukocytosis and does have pericholecystic fluid surrounding his g allbladder on both the ultrasound and the CT scan. However, the patient no longer has any right upper quadrant abdominal pain or symptoms suggestive of acute cholecystitis. I have ordered a HIDA scanand if the HIDA scan is positive for acute cholecystitis then I would recommend having him admittedto the hospitalist service and I will plan for a laparoscopic cholecystectomy tomorrow. If his gallbladder does fill in the HIDA scan then he can likely have a p.o. challenge and be discharged from the ER. documented in this encounter ED Notes * Kathy Morales PA - 03/30/2023 1:09 PM CDT CHIEF COMPLAINT: Chief Complaint Patient presents with Abdominal Pain HPI 1:09 PM Chadwick Holcomb is a 42 y.o. male presenting to the ED c/o epigastric/right upper quadrant abdominal pain that began this morning. Patient states initially it was to right upper quadrant/lower ribs, was severe pain causing him to double over. States pain in that area has improved, currently has pain to the epigastric area. Does have history of pancreatitis, is concerned for another flare. Did have some mild nausea but no vomiting. No diarrhea or constipation. No other health conditions aside from diabetes. Currently rates pain as a 6/10. History provided by patient. PCP: Preston Moulton PA PAST MEDICAL HISTORY Past Medical History: Diagnosis Date Diabetes mellitus (HCC) PAST SURGICAL HISTORY No past surgical history on file. FAMILY HISTORY Family History Problem Relation Age of Onset Cancer Mother Diabetes Mother No Known Problems Father Hypertension Brother MEDICATIONS GIVEN IN THE ED Medications ioversoL (OPTIRAY 350) syringe 100 mL (100 mL intravenous Contrast Given 03/30/23 1144) ketorolac (TORADOL) 30 mg/mL (1 mL) injection 15 mg (15 mg intravenous Given 03/30/23 1312) tc-99m medronate (MDP) injection 5.7 millicurie (5.7 millicuries intravenous Given 03/30/23 1636) morphine injection 3.5 mg (3.5 mg intravenous Given 03/30/23 1815) CURRENT HOME MEDICATIONS No current facility-administered medications for this encounter. Current Outpatient Medications: blood glucose diagnostic (glucose blood) strip, Use as directed to check blood glucose 4 times per day, Disp: 100 each, Rfl: 11 blood-glucose meter kit, Use as directed to check blood glucose four times per day, Disp: 1 kit, Rfl: 0 fenofibrate nanocrystallized (TRICOR) 145 mg tablet, Take 1 tablet (145 mg total) by mouth daily, Disp: 90 tablet, Rfl: 3 insulin glargine (LANTUS, SEMGLEE) 100 unit/mL vial for injection, Inject 75 Units under the skin nightly, Disp: 60 mL, Rfl: 3 insulin lispro (HumaLOG, ADMELOG) 100 unit/mL vial for injection, Inject 10 Units under the skin 3 (three) times a day with meals, Disp: 30 mL, Rfl: 3 insulin syringe-needle U-100 1 mL 31 gauge x 5/16 syringe, Use to inject 1-4 times daily as directed., Disp: 300 each, Rfl: 4 lancets misc, Use as directed to check blood glucose 4 times per day, Disp: 200 each, Rfl: 3 metFORMIN XR (GLUCOPHAGE XR) 500 mg 24 hr tablet, Take 1 tablet (500 mg total) by mouth 2 (two) times a day before breakfast and lunch, Disp: 360 tablet, Rfl: [address] (PROTONIX) 40 mg EC tablet, Take 1 tablet (40 mg total) by mouth 2 (two) times a day, Disp: 60 tablet, Rfl: 1 pen needle, diabetic 31 gauge x 5/16 needle, Use to inject 1-4 times daily as directed., Disp: 300each, Rfl: 4 rosuvastatin (CRESTOR) 20 mg tablet, Take 1 tablet (20 mg total) by mouth daily, Disp: 90 tablet, Rfl: 3 ALLERGIES No Known Allergies SOCIAL HISTORY Social History Tobacco Use Smoking status: Never Smokeless tobacco: Not on file Substance and Sexual Activity Drug use: Never Sexual activity: Defer Alcohol Use: Unknown (03/03/2023) AUDIT-C Frequency of Alcohol Consumption: Monthly or less Average Number of Drinks: 1 or 2 Frequency of Binge Drinking: Not on file PHYSICAL EXAM TRIAGE VITAL SIGNS: ED Triage Vitals Temp Pulse Resp BP SpO2 03/30/23 0911 03/30/23 0911 03/30/23 0911 03/30/23 0911 03/30/23 0911 36.7 ??C (98.1 ??F) 79 18 144/95 98 % Temp src Heart Rate Source Patient Position BP Location FiO2 (%) 03/30/23 0911 03/30/23 1300 03/30/23 1300 03/30/23 1530 -- Oral Monitor Sitting Right arm Height Height Method Weight Weight Method 03/30/23 0911 03/30/23 0911 03/30/23 0911 03/30/23 0911 1.727 m (5' 8 ) Stated 76.4 kg (168 lb 6.9 oz) Standing scale Physical Exam Vitals and nursing note reviewed. Constitutional: General: He is not in acute distress. Appearance: He is well-developed. HENT: Head: Normocephalic and atraumatic. Eyes: Conjunctiva/sclera: Conjunctivae normal. Cardiovascular: Rate and Rhythm: Normal rate and regular rhythm. Heart sounds: No murmur heard. Pulmonary: Effort: Pulmonary effort is normal. No respiratory distress. Breath sounds: Normal breath sounds. Abdominal: Palpations: Abdomen is soft. Tenderness: There is no abdominal tenderness. Musculoskeletal: General: No swelling. Cervical back: Neck supple. Skin: General: Skin is warm and dry. Capillary Refill: Capillary refill takes less than 2 seconds. Neurological: Mental Status: He is alert. Psychiatric: Mood and Affect: Mood normal. LABS Labs Reviewed URINALYSIS AND REFLEX TO MICROSCOPIC AND CULTURE - Abnormal Result Value Color, ur Yellow Clarity, ur Clear Specific gravity, ur 1.024 pH, urine 6.0 Protein, ur ql Negative Glucose, ur ql 1+ (*) Ketones, ur Negative Bilirubin, ur Negative Blood, ur Negative Urobilinogen, ur <2.0 Nitrite, ur Negative Leukocyte esterase, ur Negative UA reflex comment Value: Reflex conditions for microscopic UA and culture not met. Narrative: Urine pH is affected by diet, medications, systemic acid-base disturbances, and renal tubular function. pH may affect urinary stone formation. For example, urine pH below 6.0 may help reduce the tendency for calcium phosphate stones and pH greater than 6.0 may reduce the tendency for uric acid stone formation. Source: [employer].Last revised 10-06-2017 CBC WITH AUTO DIFFERENTIAL - Abnormal WBC 12.2 (*) Hgb 13.1 Hct 37.2 (*) Plt 264 MPV 9.3 RBC 4.42 MCV 84.2 MCH 29.6 MCHC 35.2 RDW CV 12.6 RDW SD 38.2 NRBC abs 0.00 DIFFERENTIAL AUTO - Abnormal Neutrophil abs 9.6 (*) Imm gran abs 0.1 Lymphocyte abs 1.6 Monocyte abs 0.7 Eosinophil abs 0.1 Basophil abs 0.1 Neutrophil pct 78.9 Imm gran pct 0.4 Lymphocyte pct 13.1 Monocyte pct 5.9 Eosinophil pct 1.1 Basophil pct 0.6 COMPREHENSIVE METABOLIC PANEL Sodium 140 Potassium, pl 3.9 Chloride 103 CO2 28 Anion gap 9 BUN 15 Creatinine 1.10 Glucose 150 Calcium 9.8 Bilirubin, total 0.5 Protein, pl 7.8 Albumin 4.9 Alk phos 63 ALT 36 AST 26 LIPASE Lipase 57 EGFR eGFR 85 POCT GLUCOSE DEVICE POCT GLUCOSE DEVICE Glucose, POC 156 Glucose comment 1 Use This Result RADIOLOGY CT Abdomen Pelvis W Contrast Result Date: 03/30/2023 Narrative: EXAM DESCRIPTION: CT ABDOMEN PELVIS W CONTRAST REASON FOR STUDY: Pancreatitis, acute, critically ill, Abdominal pain, acute, nonlocalized C/o upper abdominal pain that started this am. Denies n/v/d. Hx of pancreatitis. Takes insulin. TECHNIQUE: CT scan of the abdomen and pelvis performedwith intravenous and without oral contrast using helical scanning technique with dynamic intravenous contrast injection. Reconstructed coronal and sagittal MPR images reviewed. All images stored on PACS. Automated exposure control was used as a dose optimization technique for this examination. CONTRAST TYPE/DOSE: 100mL of IOVERSOL 350 MG IODINE/ML INTRAVENOUS SYRINGE injected via intravenous EVIE RISON: CT abdomen and pelvis 02/11/2020 REFERENCE: Per ACR white paper recommendations, unless otherwise specified no follow-up imaging is recommended for incidental renal and adrenal lesions per consensus recommendations based on imaging criteria. Further lab evaluation could be pursued based on clinical findings. FINDINGS: LOWER CHEST: Stable posterior left lower lobe 5 mm part solid nodule (series 3, image 3). Stable posterolateral left lower lobe 3 mm ground-glass nodule (series 3, image 14). LIVER: Normal size. Hepatic steatosis. No identified cystic or solid masses. GALLBLADDER: Small amount of pericholecystic fluid. No significant gallbladder wall thickening. No gallstones are seen. No adjacent inflammatory fat stranding. There is suggestion of mild adjacent hepatic parenchymal hyperenhancement (axial image 52). BILE DUCTS: No intrahepatic or extrahepatic ductal dilatation. SPLEEN: The spleen is mildly enlarged, measuring up to 14 cm anteroposteriorly, unchanged no focal lesions. PANCREAS: No identified cystic or solid masses. No significant calcifications. No adjacent inflammation or peripancreatic fluid collections. Pancreatic duct not dilated. ADRENALS: Normal. KIDNEYS/URINARY TRACT: No identified significant cystic or solid masses. No visualized stones. No hydronephrosis or hydroureter. Symmetric enhancement. Mild circumferential bladder wall thickening is redemonstrated. GI: The distal esophagus and stomach are normal. No dilated bowel loops. No obvious wall thickening. Normal appendix. No significant diverticular disease. PERITONEUM: No ascites or free air. RETROPERITONEUM: No mass or adenopathy. REPRODUCTIVE: The prostate gland is mildly enlarged. VASCULATURE: No abdominal aortic aneurysm. MUSCULOSKELETAL: No significant abnormality. OTHER: No other abnormality. IMPRESSION: 1. Small amount of pericholecystic fluid. Suspected mild adjacent hepatic parenchymal hyperenhancement, which may reflect hyperemia in the setting of acute cholecystitis. No gallstones, significant gallbladder wall thickening, or adjacent inflammatory stranding. Further evaluation with ultrasound or a HIDA scan is suggested. 2. Hepatic steatosis. THIS IS AN ELECTRONICALLY VERIFIED FINAL REPORT 03/30/2023 12:24 PM - Electronically signed by Edmundo Ji M.D. KR: KR Report ID: [id number] Reading Location: [place] [address] ED COURSE/MEDICAL DECISION MAKING Differential diagnosis included but not limited to pancreatitis, cholecystitis, acid reflux. Patient's medical records were reviewed. I discussed management or test interpretation with the following outside physician, caregiver, detention staff: Dr. Pepito Moyer, general surgery. ED Course as of 03/31/23 0948 Time: 03/30 950 Value: CBC with auto differential(!): WBC 12.2(!) Hgb 13.1 Hct 37.2(!) Plt 264 MPV 9.3 RBC 4.42 MCV 84.2 MCH 29.6 MCHC 35.2 RDW CV 12.6 RDW SD 38.2 NRBC abs 0.00 Comment: (Reviewed) By: Kathy Morales PA Time: 03/30 950 Value: Urinalysis reflex to microscopic and culture Urine(!): Color, ur Yellow Clarity, ur Clear Specific gravity, ur 1.024 pH, urine 6.0 Protein, ur ql Negative Glucose, ur ql 1+(!) Ketones, ur Negative Bilirubin, ur Negative Blood, ur Negative Urobilinogen, ur <2.0 Nitrite, ur Negative Leukocyte esterase, ur Negative UA reflex comment Reflex conditions for microscopic UA and culture not met. Comment: (Reviewed) By: Kathy Morales PA Time: 03/30 1011 Value: Lipase: Lipase, Serum 57 Comment: (Reviewed) By: Kathy Morales PA Time: 03/30 1011 Value: Comprehensive metabolic panel: Sodium 140 Potassium, pl 3.9 Chloride 103 CO2 28 Anion gap 9 BUN 15 Creatinine 1.10 Glucose 150 Calcium 9.8 Bilirubin, total 0.5 Protein, pl 7.8 Albumin 4.9 Alk phos 63 ALT 36 AST 26 Comment: (Reviewed) By: Kathy Morales PA Time: 03/30 1450 Value: CT Abdomen Pelvis W Contrast Comment: IMPRESSION: 1. Small amount of pericholecystic fluid. Suspected mild adjacent hepatic parenchymal hyperenhancement, which may reflect hyperemia in the setting of acute cholecystitis. No gallstones, significant gallbladder wall thickening, or adjacent inflammatory stranding. Further evaluation with ultrasound or a HIDA scan is suggested. 2. Hepatic steatosis. By: Kathy Morales PA Time: 03/30 1452 Value: US RUQ Comment: IMPRESSION: Cholelithiasis and/or gallbladder sludge with borderline edematous gallbladder wall thickening and a trace amount of pericholecystic fluid, and findings may be reactive to the pancreatitis, however cholecystitis can not be entirely excluded. Further evaluation with HIDA scan is recommended as clinically indicated. Diffuse hepatic steatosis. By: Kathy Morales PA Time: 03/30 4075 Comment: Discussed patient and case with general surgeon, Dr. Pepito Moyer, who will review patient's imaging and call back. By: Kathy Morales PA Time: 03/30 1952 Value: NM Hepatobiliary Imaging W MORPHINE Comment: IMPRESSION: Gallbladder fills slowly but does fill, which could represent some degree of dysfunction but the cystic duct appears to be patent. By: Kathy Morales PA Time: 03/30 2009 Comment: Discussed patient and case with general surgeon, Dr. Moyer, following results of HIDA scan. States patient is safe for discharge home and outpatient follow-up. By: Kathy Morales PA All lab imaging results were discussed with patient. Patient able to eat and drink in emergency department without any nausea, vomiting, or abdominal pain. Patient's pain has been controlled in emergency department, not requiring emergent or further intervention at this point in time. Did discussedneed for follow-up with outpatient General surgery appointment, instructed to call tomorrow to makean appointment as soon as possible for further evaluation. Strict return precautions were discussedincluding any new or worsening pain, fevers or chills, or nausea and vomiting. Patient expressed understanding and is agreeable to plan and discharge. All questions answered. Procedures FINAL IMPRESSION Dysfunctional gallbladder Abdominal pain, epigastric DISPOSITION: Home All findings were discussed with patient. Pt agreeable with plan. Non toxic appearing, vitals stable. Patient stable for discharge home. Given return to ER precautions Close outpatient follow-up with a low threshold to return has been mandated , concerning symptoms have been emphasized in detail, and this patient expresses understanding PATIENT INSTRUCTED TO FOLLOW UP Preston Moulton PA [facility] [address] [facility] [address] [phone] DISCHARGE MEDICATIONS Your medication list CONTINUE taking these medications Instructions Last Dose Given Next Dose Due blood-glucose meter kit Use as directed to check blood glucose four times per day insulin syringe-needle U-100 1 mL 31 gauge x 5/16 syringe Use to inject 1-4 times daily as directed. lancets misc Use as directed to check blood glucose 4 times per day pen needle, diabetic 31 gauge x 5/16 needle Use to inject 1-4 times daily as directed. ASK your doctor about these medications Instructions Last Dose Given Next Dose Due fenofibrate nanocrystallized 145 mg tablet Commonly known as: TRICOR Take 1 tablet (145 mg total) by mouth daily glucose blood strip Generic drug: blood glucose diagnostic Use as directed to check blood glucose 4 times per day insulin glargine 100 unit/mL vial for injection Doctor's comments: Please give 90 day supply Commonly known as: LANTUS, SEMGLEE Inject 75 Units under the skin nightly insulin lispro 100 unit/mL vial for injection Commonly known as: HumaLOG, ADMELOG Inject 10 Units under the skin 3 (three) times a day with meals metFORMIN XR 500 mg 24 hr tablet Commonly known as: GLUCOPHAGE XR Take 1 tablet (500 mg total) by mouth 2 (two) times a day before breakfast and lunch pantoprazole DR 40 mg EC tablet Commonly known as: PROTONIX Take 1 tablet (40 mg total) by mouth 2 (two) times a day rosuvastatin 20 mg tablet Commonly known as: CRESTOR Take 1 tablet (20 mg total) by mouth daily This examination was transcribed using the F2G voice recognition system without human crew scheduler. In an effort to expedite patient care, this report has not been adjusted for typographical, grammatical, and syntax by a trained biomedical equipment technician. Kathy Lu PA 03/31/23 0948 Cosigned by Saritha Angela DO at 03/31/2023 10:43 AM CDT Associated attestation - Saritha Angela DO - 03/31/2023 10:43 AM CDT The APC independently evaluated the patient and completed their own examination, documentation, anddisposition. I was available for immediate consultation and in-person evaluation if required but was not asked to do so. * Tiffanie Saldaña RN - 03/30/2023 9:15 AM CDT C/o upper abdominal pain that started this am. Denies n/v/d. Hx of pancreatitis. Takes insulin. BG 156.. documented in this encounter Plan of Treatment Not on file documented as of this encounter Procedures Procedure Name Priority Date/Time Associated Diagnosis Comments NM HEPATOBILIARY IMAGING W MORPHINE ED Urgent/IP Urgent 03/30/2023 7:05 PM CDT US RUQ ED 03/30/2023 2:[address] ABDOMEN PELVIS W CONTRAST ED 03/30/2023 11:58 AM CDT EGFR STAT 03/30/2023 9:36 AM CDT DIFFERENTIAL AUTO STAT 03/30/2023 9:3 6 AM CDT URINALYSIS AND REFLEX TO MICROSCOPIC AND CULTURE STAT 03/30/2023 9:36 AM CDT CBC WITH AUTO DIFFERENTIAL STAT 03/30/2023 9:36 AM CDT LIPASE STAT 03/30/2023 9:36 AM CDT COMPREHENSIVE METABOLIC PANEL STAT 03/30/2023 9:36 AM CDT POCT GLUCOSE DEVICE Routine 03/30/2023 9 :15 AM CDT documented in this encounter Results * NM Hepatobiliary Imaging W MORPHINE (03/30/2023 7:05 PM CDT) Anatomical Region Laterality Modality Body N/A Nuclear Medicine 03/30/2023 7:19 PM CDT Narrative 03/30/2023 7:43 PM CDT EXAM DESCRIPTION: NM HEPATOBILIARY IMAGING W MORPHINE RADIOPHARMACEUTICAL: 5.7 ??mCi Tc-99m mebrofenin and ??3.5 ??mg of morphine via a left antecubital ??IV site REASON FOR STUDY: Rule out acute barrett TECHNIQUE: Following the intravenous administration of the radiopharmaceutical, sequential abdominal images were obtained. COMPARISON: Same day FINDINGS: There is prompt, homogenous tracer localization throughout the liver. There is normal visualization of the intrahepatic ducts and common bile duct. There is normal biliary to bowel transit. After ??60 ??minutes of imaging, no radiotracer was seen in the gallbladder. The study was augmented with ??3.5 ??mg of morphine and imaging continued for another 30 minutes. IMPRESSION: Gallbladder fills slowly but does fill, which could represent some degree of dysfunction but the cystic duct appears to be patent. THIS IS AN ELECTRONICALLY VERIFIED FINAL REPORT 03/30/2023 7:43 PM - Electronically signed by ??Fausto Riley M.D. AR: DOMINGO D: ??03/30/2023 7:43 PM T: ??03/30/2023 7:43 PM Report ID: [id number] Reading Location: ??[id number] Procedure Note Fausto Riley MD - 03/30/2023 EXAM DESCRIPTION: NM HEPATOBILIARY IMAGING W MORPHINE RADIOPHARMACEUTICAL: 5.7 mCi Tc-99m mebrofenin and 3.5 mg of morphinevia a left antecubital IV site REASON FOR STUDY: Rule out acute barrett TECHNIQUE: Following the intravenous administration of the radiopharmaceutical, sequential abdominal images were obtained. COMPARISON: Same day FINDINGS: There is prompt, homogenous tracer localization throughout the liver. There is normal visualization of the intrahepatic ducts and commonbile duct. There is normal biliary to bowel transit. After 60 minutes of imaging, no radiotracer was seen in the gallbladder.The study was augmented with 3.5 mg of morphine and imaging continued for another 30 minutes. IMPRESSION: Gallbladder fills slowly but does fill, which could representsome degree of dysfunction but the cystic duct appears to be patent. THIS IS AN ELECTRONICALLY VERIFIED FINAL REPORT 03/30/2023 7:43 PM - Electronically signed by Fausto Riley M.D. AR: DOMINGO Report ID: [id number] Reading Location: [id number] us Sandeep Moyer DO IMG NM PROCEDURES Final Re sult * US RUQ (03/30/2023 2:19 PM CDT) Anatomical Region Laterality Modality Abdomen N/A Ultrasound 03/30/2023 2:39 PM CDT Narrative 03/30/2023 2:41 PM CDT EXAM DESCRIPTION: ?? US RUQ REASON FOR STUDY: ?? abnormal CT scan, concern cholecystitis ?? TECHNIQUE: Ultrasound of the right upper quadrant of the abdomen was performed with grayscale and color doppler. COMPARISON: ?? 02/10/2023 FINDINGS: PANCREAS: ?? Visualized portions of the pancreas are within normal limits. Portions of the pancreatic body and tail are obscured due to bowel gas. LIVER: ?? The liver is increased in echogenicity. ??There is no definite sonographic evidence of focal hepatic lesion. ??There is documentation of hepatopetal flow in the portal vein. GALLBLADDER: ?? There is cholelithiasis and/or gallbladder sludge. ??There is borderline edematous gallbladder wall thickening measuring 0.3 cm in thickness with a trace amount of pericholecystic fluid. ??There is a negative sonographic Chen's sign. ?? BILIARY: ?? There is no intrahepatic or extrahepatic biliary ductal dilatation. Common bile duct measures ??0.4 cm ??in diameter. RIGHT KIDNEY: ?? Normal size. Normal echogenicity. No solid mass or cyst. ??No hydronephrosis. ??Measures ??14.0 x 4.7 x 4.4 ??cm. OTHER: ?? No other significant findings. IMPRESSION: Cholelithiasis and/or gallbladder sludge with borderline edematous gallbladder wall thickening and a trace amount of pericholecystic fluid, and findings may be reactive to the pancreatitis, however cholecystitis can not be entirely excluded. ??Further evaluation with HIDA scan is recommended as clinically indicated. Diffuse hepatic steatosis. THIS IS AN ELECTRONICALLY VERIFIED FINAL REPORT 03/30/2023 2:41 PM - Electronically signed by ??Mark Rob D.O. PS: PS D: ??03/30/2023 2:41 PM T: ??03/30/2023 2:41 PM Report ID: [id number] Reading Location: ??[id number] Procedure Note Mark Rob, DO - 03/30/2023 EXAM DESCRIPTION: US RUQ REASON FOR STUDY: abnormal CT scan, concern cholecystitis TECHNIQUE: Ultrasound of the right upper quadrant of the abdomen wasperformed with grayscale and color doppler. COMPARISON: 02/10/2023 FINDINGS: PANCREAS: Visualized portions of the pancreas are withinnormal limits. Portions of the pancreatic body and tail are obscured due to bowel gas. LIVER: The liver is increased in echogenicity. There is no definite sonographic evidence of focal hepatic lesion. There is documentation of hepatopetal flow in the portal vein. GALLBLADDER: There is cholelithiasis and/or gallbladder sludge. Thereis borderline edematous gallbladder wall thickening measuring 0.3 cm inthickness with a trace amount of pericholecystic fluid. There is a negativesonographic Chen's sign. BILIARY: There is no intrahepatic or extrahepatic biliary ductaldilatation. Common bile duct measures 0.4 cm in diameter. RIGHT KIDNEY: Normal size. Normal echogenicity. No solid mass or cyst.No hydronephrosis. Measures 14.0 x 4.7 x 4.4 cm. OTHER: No other significant findings. IMPRESSION: Cholelithiasis and/or gallbladder sludge with borderline edematous gallbladder wall thickening and a trace amount of pericholecystic fluid,and findings may be reactive to the pancreatitis, however cholecystitis cannot be entirely excluded. Further evaluation with HIDA scan is recommended as clinically indicated. Diffuse hepatic steatosis. THIS IS AN ELECTRONICALLY VERIFIED FINAL REPORT 03/30/2023 2:41 PM - Electronically signed by Mark Rob D.O. PS: PS Report ID: [id number] Reading Location: [id number] us Kathy GLASER IM[facility]andon US PROCEDURES Final Res ult * CT Abdomen Pelvis W Contrast (03/30/2023 11:58 AM CDT) Anatomical Region Laterality Modality Body N/A Computed Tomogra phy 03/30/2023 12:1 1 PM CDT Narrative 03/30/2023 12:24 PM CDT EXAM DESCRIPTION: ?? CT ABDOMEN PELVIS W CONTRAST REASON FOR STUDY: ?? Pancreatitis, acute, critically ill, Abdominal pain, acute, nonlocalized ?? C/o upper abdominal pain that started this am. ??Denies n/v/d. ??Hx of pancreatitis. ??Takes insulin. ? TECHNIQUE: CT scan of the abdomen and pelvis performed with intravenous and ?? without ??oral contrast using helical scanning technique with dynamic intravenous contrast injection. Reconstructed coronal and sagittal MPR images reviewed. All images stored on PACS. Automated exposure control was used as a dose optimization technique for this examination. CONTRAST TYPE/DOSE: ?? 100mL of IOVERSOL 350 MG IODINE/ML INTRAVENOUS SYRINGE ?? injected via ?? intravenous COMPARISON: ?? CT abdomen and pelvis 02/11/2020 REFERENCE: Per ACR white paper recommendations, unless otherwise specified no follow-up imaging is recommended for incidental renal and adrenal lesions per consensus recommendations based on imaging criteria. Further lab evaluation could be pursued based on clinical findings. FINDINGS: LOWER CHEST: ?? Stable posterior left lower lobe 5 mm part solid nodule (series 3, image 3). ??Stable posterolateral left lower lobe 3 mm ground-glass nodule (series 3, image 14). LIVER: ?? Normal size. ??Hepatic steatosis. ??No identified cystic or solid masses. GALLBLADDER: ?? Small amount of pericholecystic fluid. ??No significant gallbladder wall thickening. ??No gallstones are seen. ??No adjacent inflammatory fat stranding. ??There is suggestion of mild adjacent hepatic parenchymal hyperenhancement (axial image 52). BILE DUCTS: ?? No intrahepatic or extrahepatic ductal dilatation. SPLEEN: ?? The spleen is mildly enlarged, measuring up to 14 cm anteroposteriorly, unchanged no focal lesions. PANCREAS: ?? No identified cystic or solid masses. No significant calcifications. No adjacent inflammation or peripancreatic fluid collections. Pancreatic duct not dilated. ?? ADRENALS: ?? Normal. KIDNEYS/URINARY TRACT: ?? No identified significant cystic or solid masses. No visualized stones. No hydronephrosis or hydroureter. Symmetric enhancement. ? Mild circumferential bladder wall thickening is redemonstrated. GI: The distal esophagus and stomach are normal. ?? No dilated bowel loops. No obvious wall thickening. ??Normal appendix. ??No significant diverticular disease. PERITONEUM: ?? No ascites or free air. RETROPERITONEUM: ?? No mass or adenopathy. REPRODUCTIVE: ?? The prostate gland is mildly enlarged. VASCULATURE: ?? No abdominal aortic aneurysm. MUSCULOSKELETAL: ?? No significant abnormality. OTHER: ?? No other abnormality. IMPRESSION: 1. ?? Small amount of pericholecystic fluid. ??Suspected mild adjacent hepatic parenchymal hyperenhancement, which may reflect hyperemia in the setting of acute cholecystitis. ??No gallstones, significant gallbladder wall thickening, or adjacent inflammatory stranding. ??Further evaluation with ultrasound or a HIDA scan is suggested. 2. ?? Hepatic steatosis. THIS IS AN ELECTRONICALLY VERIFIED FINAL REPORT 03/30/2023 12:24 PM - Electronically signed by ??Edmundo Ji M.D. KR: LEANNA D: ??03/30/2023 12:24 PM T: ??03/30/2023 12:24 PM Report ID: [id number] Reading Location: ??[id number] Procedure Note Edmundo Ji MD - 03/30/2023 EXAM DESCRIPTION: CT ABDOMEN PELVIS W CONTRAST REASON FOR STUDY: Pancreatitis, acute, critically ill, Abdominal pain, acute, nonlocalized C/o upper abdominal pain that started this am. Denies n/v/d. Hx of pancreatitis. Takes insulin. TECHNIQUE: CT scan of the abdomen and pelvis performed with intravenousand without oral contrast using helical scanning technique with dynamic intravenous contrast injection. Reconstructed coronal and sagittal MPRimages reviewed. All images stored on PACS. Automated exposure control was usedas a dose optimization technique for this examination. CONTRAST TYPE/DOSE: 100mL of IOVERSOL 350 MG IODINE/ML INTRAVENOUSSYRINGE injected via intravenous COMPARISON: CT abdomen and pelvis 02/11/2020 REFERENCE: Per ACR white paper recommendations, unless otherwise specifiedno follow-up imaging is recommended for incidental renal and adrenal lesionsper consensus recommendations based on imaging criteria. Further labevaluation could be pursued based on clinical findings. FINDINGS: LOWER CHEST: Stable posterior left lower lobe 5 mm part solid nodule (series 3, image 3). Stable posterolateral left lower lobe 3 mm ground-glass nodule (series 3, image 14). LIVER: Normal size. Hepatic steatosis. No identified cystic or solid masses. GALLBLADDER: Small amount of pericholecystic fluid. No significant gallbladder wall thickening. No gallstones are seen. No adjacent inflammatory fat stranding. There is suggestion of mild adjacent hepatic parenchymal hyperenhancement (axial image 52). BILE DUCTS: No intrahepatic or extrahepatic ductal dilatation. SPLEEN: The spleen is mildly enlarged, measuring up to 14 cm anteroposteriorly, unchanged no focal lesions. PANCREAS: No identified cystic or solid masses. No significant calcifications. No adjacent inflammation or peripancreatic fluidcollections. Pancreatic duct not dilated. ADRENALS: Normal. KIDNEYS/URINARY TRACT: No identified significant cystic or solid masses.No visualized stones. No hydronephrosis or hydroureter. Symmetricenhancement. Mild circumferential bladder wall thickening is redemonstrated. GI: The distal esophagus and stomach are normal. No dilated bowel loops.No obvious wall thickening. Normal appendix. No significant diverticular disease. PERITONEUM: No ascites or free air. RETROPERITONEUM: No mass or adenopathy. REPRODUCTIVE: The prostate gland is mildly enlarged. VASCULATURE: No abdominal aortic aneurysm. MUSCULOSKELETAL: No significant abnormality. OTHER: No other abnormality. IMPRESSION: 1. Small amount of pericholecystic fluid. Suspected mild adjacenthepatic parenchymal hyperenhancement, which may reflect hyperemia in the settingof acute cholecystitis. No gallstones, significant gallbladder wallthickening, or adjacent inflammatory stranding. Further evaluation with ultrasound ora HIDA scan is suggested. 2. Hepatic steatosis. THIS IS AN ELECTRONICALLY VERIFIED FINAL REPORT 03/30/2023 12:24 PM - Electronically signed by Edmundo Ji M.D. KR: LEANNA Report ID: [id number] Reading Location: [place] [address] Kathy GLASER [facility] CT PROCEDURES Final Res ult * eGFR (03/30/2023 9:36 AM CDT) eGFR 85 mL/min/1. 73 m2 ELLIOT HINES Comment: Interpretive [...] was last reviewed 2021. Testing performed by: [address] [address] Blood 03/30/2023 9:36 AM CDT 03/30/2023 9:39 AM CDT us Kathy GLASER LAB BLOOD ORDERABLES Final Result Performing Organization Address City/State/[facility] Co de Phone Number ELLIOT 59[address] [facility] Department [place] [address] * (ABNORMAL) Differential, auto (03/30/2023 9:36 AM CDT) Neutrophil abs 9.6(H) 1.7 - 6.5 K/cumm ELLIOT HINES Comment:Testing performed by : [address] [address] Imm gran abs 0.1 0.0 - 0.1 K/cumm ELLIOT HINES Comment:Testing performed by : [address] [address] Lymphocyte abs 1.6 0.8 - 3.3 K/cumm [facility] Comment:Testing performed by : [address], [place]., [address] Monocyte abs 0.7 0.2 - 0.8 K/cumm [facility] Comment:Testing performed by : [address], [place]., [address] Eosinophil abs 0.1 0.0 - 0.5 K/cumm [facility] Comment:Testing performed by : [address], [place]., [address] Basophil abs 0.1 0.0 - 0.1 K/cumm [facility] Comment:Testing performed by : [address] [address] Neutrophil pct 78.9 % [facility] Comment: Interpretive Data Percent cell count reference ranges are not reported, since discordance with absolute values may lead to misinterpretation of CBC data. Current Interpretive Data was last revised on 2018. Testing performed by: [address] [address] Imm gran pct 0.4 % [facility] Comment: Interpretive Data Percent cell count reference ranges are not reported, since discordance with absolute values may lead to misinterpretation of CBC data. Current Interpretive Data was last revised on 2018. Testing performed by: [address] [address] Lymphocyte pct 13.1 % [facility] Comment: Interpretive Data Percent cell count reference ranges are not reported, since discordance with absolute values may lead to misinterpretation of CBC data. Current Interpretive Data was last revised on 2018. Testing performed by: [address] [address] Monocyte pct 5.9 % [facility] Comment: Interpretive Data Percent cell count reference ranges are not reported, since discordance with absolute values may lead to misinterpretation of CBC data. Current Interpretive Data was last revised on 2018. Testing performed by: [address] [address] Eosinophil pct 1.1 % [facility] Comment: Interpretive Data Percent cell count reference ranges are not reported, since discordance with absolute values may lead to misinterpretation of CBC data. Current Interpretive Data was last revised on 2018. Testing performed by: [address] [address] Basophil pct 0.6 % ELLIOT HINES Comment: Interpretive Data Percent cell count reference ranges are not reported, since discordance with absolute values may lead to misinterpretation of CBC data. Current Interpretive Data was last revised on 2018. Testing performed by: [address] [address] Blood 03/30/2023 9:36 AM CDT 03/30/2023 9:39 AM CDT us Kathy GLASER LAB BLOOD ORDERABLES Final Result ELLIOT [address] [facility] Department of Laboratories [place], [place] [id number] * (ABNORMAL) Urinalysis reflex to microscopic and culture Urine (03/30/2023 9:36 AM CDT) Color, ur Yellow Yellow ELLIOT Comment:Testing performed by : [address] [address] Clarity, ur Clear Clear ELLIOT Comment:Testing performed by : [address] [address] Specific gravity, ur 1.024 1.003 - 1.030 ELLIOT Comment:Testing performed by : [address] [address] pH, urine 6.0 ELLIOT Comment:Testing performed by : [address] [address] Protein, ur ql Negative Negative ELLIOT Comment:Testing performed by : [address] [address] Glucose, ur ql 1+(A) Negative ELLIOT Comment:Testing performed by : [address] [address] Ketones, ur Negative Negative ELLIOT Comment:Testing performed by : [address] [address] Bilirubin, ur Negative Negative ELLIOT Comment:Testing performed by : [facility], [address] [place] [address]., [address] Blood, ur Negative Negative ELLIOT Comment:Testing performed by : [facility], [address] [place] [address]., [address] Urobilinogen, ur <2.0 <2.0 mg/dL ELLIOT Comment:Testing performed by : [address] [address] Nitrite, ur Negative Negative ELLIOT Comment:Testing performed by : [address] [address] Leukocyte esterase, ur Negative Negative ELLIOT Comment:Testing performed by : [address] [address] UA reflex comment Reflex conditions for microscopic UA and culture not met. ELLIOT Comment:Testing performed by : [address] [address] Urine 03/30/2023 9:36 AM CDT 03/30/2023 9:39 AM CDT Narrative ELLIOT HINES - 03/30/2023 9:47 AM CDT ?? Urine pH is affected by diet, medications, systemic acid-base disturbances, and renal tubular function. ??pH may affect urinary stone formation. ??For example, urine pH below 6.0 may help reduce the tendency for calcium phosphate stones and pH greater than 6.0 may reduce the tendency for uric acid stone formation. Source: [facility] [employer]. Last revised 10-06-2017 us Kathy GLASER LAB MICROBIOLOGY - GENERAL ORDERABLES Final Result ELLIOT 43[address] [facility] Department [place] [address] * Lipase (03/30/2023 9:36 AM CDT) Lipase 57 10 - 99 Units/L ELLIOT HINES Comment:Testing performed by : [address] [address] Blood (Blood, Venous) 03/30/2023 9:36 AM CDT 03/30/2023 9:39 AM CDT us Kathy GLASER LAB BLOOD ORDERABLES Final Result ELLIOT 00[address] [facility] Department [place] [address] * Comprehensive metabolic panel (03/30/2023 9:36 AM CDT) Sodium 140 135 - 145 mmol/L ELLIOT Comment:Testing performed by : [address] [address] Potassium, pl 3.9 3.3 - 4.9 mmol/L ELLIOT Comment:Testing performed by : [address] [address] Chloride 103 97 - 110 mmol/L ELLIOT Comment:Testing performed by : [address] [address] CO2 28 22 - 32 mmol/L ELLIOT Comment:Testing performed by : [address] [address] Anion gap 9 2 - 15 mmol/L ELLIOT Comment:Testing performed by : [address] [address] BUN 15 6 - 25 mg/dL ELLIOT Comment:Testing performed by : [address] [address] Creatinine 1.10 0.80 - 1.30 mg/dL ELLIOT Comment:Testing performed by : [address] [address] Glucose 150 70 - 199 mg/dL ELLIOT Comment: Interpretive [...] was last revised 2022. Testing performed by: [address] [address] Calcium 9.8 8.5 - 10.3 mg/dL ELLIOT Comment:Testing performed by : [address] [address] Bilirubin, total 0.5 0.1 - 1.2 mg/dL ELLIOT Comment:Testing performed by : [address] [address] Protein, pl 7.8 6.5 - 8.5 g/dL ELLIOT Comment:Testing performed by : [address] [address] Albumin 4.9 3.5 - 5.0 g/dL ELLIOT Comment:Testing performed by : [address] [address] Alk phos 63 40 - 130 Units/L ELLIOT Comment:Testing performed by : [address] [address] ALT 36 7 - 55 Units/L ELLIOT Comment:Testing performed by : [address] [address] AST 26 10 - 50 Units/L ELLIOT Comment:Testing performed by : [address] [address] Blood 03/30/2023 9:36 AM CDT 03/30/2023 9:39 AM CDT us Kathy GLASER LAB BLOOD ORDERABLES Final Result ELLIOT 6[address] [facility] Department [place] [address] * (ABNORMAL) CBC with auto differential (03/30/2023 9:36 AM CDT) WBC 12.2(H) 3.8 - 9.9 K/cumm ELLIOT Comment:Testing performed by : [address] [address] Hgb 13.1 13.0 - 17.5 g/dL ELLIOT Comment:Testing performed by : [address] [address] Hct 37.2(L) 38.9 - 50.3 % ELLIOT Comment:Testing performed by : [address] [address] Plt 264 150 - 400 K/cumm ELLIOT Comment:Testing performed by : [address], [address] MPV 9.3 9.1 - 12.3 fL ELLIOT Comment:Testing performed by : [address], [address] RBC 4.42 4.30 - 5.80 M/cumm ELLIOT Comment:Testing performed by : [address] [address] MCV 84.2 81.3 - 96.4 fL ELLIOT Comment:Testing performed by : [address] [address] MCH 29.6 27.1 - 33.3 pg ELLIOT Comment:Testing performed by : [address] [address] MCHC 35.2 32.3 - 35.7 g/dL ELLIOT Comment:Testing performed by : [address], [address] RDW CV 12.6 11.1 - 14.9 % ELLIOT Comment:Testing performed by : [address], [address] RDW SD 38.2 35.7 - 48.1 fL ELLIOT Comment:Testing performed by : [address] [address] NRBC abs 0.00 0.00 - 0.01 K/cumm ELLIOT Comment:Testing performed by : [address] [address] Blood (Blood, Venous) 03/30/2023 9:36 AM CDT 03/30/2023 9:39 AM CDT us Kathy GLASER LAB BLOOD ORDERABLES Final Result Performing Organization Address City/[facility] Co de Phone Number ELLIOT [address] [facility] Department [place] [address] * POCT glucose (03/30/2023 9:15 AM CDT) Glucose, POC 156 70 - 199 mg/dL ELLIOT Comment:Testing performed by : [facility], [address] [place] [address]., [address] Glucose comment 1 Use This Result ELLIOT Comment:Testing performed by : [facility], [address] [place] [address]., [address] Blood 03/30/2023 9:15 AM CDT 03/30/2023 9:15 AM CDT us Notinfile Unknown LAB POCT ORDERABLES - DEVICE F inal Result Performing Organization Address [facility] Co de Phone Number ELLIOT [address] [facility] [place] [address] documented in this encounter Visit Diagnoses Diagnosis Dysfunctional gallbladder- Primary Abdominal pain, epigastric documented in this encounter Administered Medications Inactive Administered Medications - up to 3 most recent administrations Medication Order MAR Action Action Date Dose Rate Site ioversoL (OPTIRAY 350) syringe 100 mL 100 mL, intravenous, Once in imaging, contrast, Starting on Tue03/30/23 at 1009, For 1 dose Contrast Given 03/30/2023 11:44 AM CDT 100 mL Left Antecubital ketorolac (TORADOL) 30 mg/mL (1 mL) injection 15 mg 15 mg, intravenous, Once, On Tue03/30/23 at 1311, For 1 dose, For Adult IV push, administer over 15 seconds, Indications: PainIndications:Kuldip n Given 03/30/2023 1:12 PM CDT 15 mg morphine injection 3.5 mg 3.5 mg, intravenous, Administer over 4 Minutes, Once, On Tue03/30/23 at 1756, For 1 dose Given 03/30/2023 6:15 PM CDT 3.5 mg tc-99m medronate (MDP) injection 5.7 millicurie 5.7 millicurie, intravenous, Once in imaging, radiopharmaceutical , Starting on Tue03/30/23 at 1635, For 1 dose, Indications: Diagnostic RadiographyIndicati ons:Diagnostic Radiography Given 03/30/2023 4:36 PM CDT 5.7 millicuries documented in this encounter Active and Recently Administered Medications Times are shown in CDT. Scheduled Medication Order 03/28/2023 03/29/2023 03/30/2023 ketorolac (TORADOL) 30 mg/mL (1 mL) injection 15 mg (COMPLETED) 15 mg, intravenous, Once, On Tue03/30/23 at 1311, For 1 dose, For Adult IV push, administer over 15 seconds, Indications: Pain 1312 (Given - Provid er: Kyara Smith, YUDELKA) morphine injection 3.5 mg (COMPLETED) 3.5 mg, intravenous, Administer over 4 Minutes, Once, On Tue03/30/23 at 1756, For 1 dose 1815 (Given - Provid er: Conchita Thomas RN - Comment: Given for HIDA scan) PRN Medication Order 03/28/2023 03/29/2023 03/30/2023 ioversoL (OPTIRAY 350) syringe 100 mL (COMPLETED) 100 mL, intravenous, Once in imaging, contrast, Starting on Tue03/30/23 at 1009, For 1 dose 1144 (Contrast Given - Provider: Eliana Galeana, RT) tc-99m medronate (MDP) injection 5.7 millicurie (COMPLETED) 5.7 millicurie, intravenous, Once in imaging, radiopharmaceutical, Starting on Tue03/30/23 at 1635, For 1 dose, Indications: Diagnostic Radiography 1636 (Given - Provid er: Concepcion Allen, RT) documented in this encounter Orders Lab Orders Without Results Count Last Ordered D ate First Ordered Date POCT GLUCOSE DEVICE 1 03/30/2023 Nursing Count Last Ordered Date First Orde red Date MISCELLANEOUS NURSING CARE ORDER (SPECIFY) 2 03/30/2023 Consult Count Last Ordered Date First Orde red Date IP CONSULT TO GENERAL SURGERY 1 03/30/2023 IV Count Last Ordered Date First Orde red Date SALINE LOCK IV 1 03/30/2023 documented in this encounter Care Teams Linter Drier Operator Relationship Specialty Start Date End Date Preston Moulton PA PCP - General Family Medicine 03/10/23 documented as of this encounter
--- OUTSIDE RECORDS SUMMARY | 2024-10-02 02:34 | XMS_ITS | Encounter Summary ---
Author Organization [facility] Healthcare Address [address] [place] [address] Care Team Providers Care Gasket Former Name Role Phone Preston Moulton Primary Care Provider [phone] Encounter Details Date Type Department Care Team (Late st Contact Info) Description 04/13/2023 1:30 PM CDT Lab [facility] Building [address] [address] Type 2 diabetes mellitus with hyperglycemia, without long-term current use of insulin (CMS/HCC) (HCC); Dyslipidemia Social History Tobacco Use Types Packs/Day Years [...] often do you attend chur ch or uatsdin services? More than 4 times per year 02/11/2023 Do you belong to any clubs o r organizations such as orthodoxy groups, unions, fraternal or athletic groups, or [...] place to sleep or slept in a correction (including now)? No 02/11/2023 Sex and Gender Information Value Date Recorded Sex Assigned at Not on file Legal Sex Male 9:22 AM FREEZER UNLOADER Gender Identity Male 11/18/2021 1:25 PM FREEZER UNLOADER Sexual Orientation Straight 11/18/2021 1: 25 PM FREEZER UNLOADER documented as of this encounter Plan of Treatment Not on file documented as of this encounter Procedures Procedure Name Priority Date/Time Associated Diagnosis Comments HEMOGLOBIN A1C Routine 04/13/2023 1:35 PM CDT Type 2 diabetes mellitus with hyperglycemia, without long-term current use of insulin ([facility]) ([facility]) LIPID PANEL Routine 04/13/2023 1:35 PM CDT Dyslipidemia documented in this encounter Results * (ABNORMAL) Lipid panel (04/13/2023 1:35 PM CDT) Cholesterol 134 30 - 199 mg/dL ELLIOT HINES Comment: Interpretive Data Ages [...] last revised on 2018. Testing performed by: [facility], [address] [place] [address]., [id number] Triglycerides 186(H) <=149 mg/dL ELLIOT HINES Comment: Interpretive Data [...] last revised on 2018. Testing performed by: [address] [address] HDL 34(L) >=40 mg/dL ELLIOT Comment: Interpretive [...] last revised on 2018. Testing performed by: [address] [address] LDL, calculated 63 <=129 mg/dL ELLIOT Comment: [...] last revised on 2018. Testing performed by: [address] [address] Non-HDL Cholesterol 100 mg/dL ELLIOT HINES Comment: Interpretive Data Ages [...] last revised on 2018. Testing performed by: [address] [address] Chol/HDL ratio 4 ELLIOT HINES Comment:Testing performed by : [address] [id number] Blood 04/13/2023 1:35 PM CDT 04/13/2023 3:45 PM CDT us Preston GLASER LAB BLOOD ORDERABLES Final Resu lt ELLIOT [address] [facility] Department [place] [address] * (ABNORMAL) Hemoglobin A1c (04/13/2023 1:35 PM CDT) Hgb A1C 7.6(H) 4.0 - 5.6 % ELLIOT HINES Comment:Testing performed by : [address] [id number] Estimated Average Glucose 171 mg/dL ELLIOT HINES Comment: The ADA recommends reporting an estimated Average Glucose (eAG) with all Hemoglobin A1c results using the equation derived from a study of 507 normal and diabetic adults. ??Minority populations were underrepresented and children were not included. ?? (Diabetes Care 31:6272-4944, 2008). ??The eAG is not equivalent to a fasting glucose. Testing performed by: [address] [address] Blood 04/13/2023 1:35 PM CDT 04/13/2023 3:45 PM CDT Preston GLASER LAB BLOOD ORDERABLES Final Resu lt Performing Organization Address City/State/[facility] Co de Phone Number [facility] [address] [facility] Department [place] [address] documented in this encounter Visit Diagnoses Diagnosis Type 2 diabetes mellitus with hyperglycemia, without long-term current use of insulin (HCC) Dyslipidemia Other and unspecified hyperlipidemia documented in this encounter Care Teams Gasket Former Relationship Specialty Start Date End Date Preston Moulton PA PCP - General Family Medicine 03/10/23 documented as of this encounter
--- OUTSIDE RECORDS SUMMARY | 2024-10-02 02:34 | XMS_ITS | Encounter Summary ---
Author Organization [facility] Healthcare Address [address] [place] [address] Care Team Providers Care Benzene Still Utility Operator Name Role Phone Preston Moulton Primary Care Provider [phone] Nelly Roy LPN Unavailable [phone] Encounter Details Date Type Department Care Team (Late st Contact Info) Description 10/20/2023 Orders Only [facility] Health Information Management [address] [place] [id number] Scanning, Provider Social History Tobacco Use Types Packs/Day Years [...] How often do you attend chur or sabianist services? More than 4 times per year [...] on file Legal Sex Male 9:22 AM CLINICAL EDUCATION ACADEMIC COORDINATOR Gender Identity Male 11/18/2021 1:25 PM CLINICAL EDUCATION ACADEMIC COORDINATOR Sexual Orientation Straight 11/18/2021 1: 25 PM CLINICAL EDUCATION ACADEMIC COORDINATOR documented as of this encounter Plan of Treatment Not on file documented as of this encounter Procedures Procedure Name Priority Date/Time Associated Diagnosis Comments SCAN - LABS 10/20/2023 documented in this encounter Results * SCAN - LABS (10/20/2023) us Provider Scanning Final Result documented in this encounter Visit Diagnoses Not on filedocumented in this encounter Care Teams Benzene Still Utility Operator Relationship Specialty Start Date End Date Preston Moulton PA PCP - General Family Medicine 03/10/23 Nelly Roy LPN [address] [place] [address] Nutritional Assistant 10/24/23 10/25/23 documented as of this encounter
--- OUTSIDE RECORDS SUMMARY | 2024-10-02 02:34 | XMS_ITS | Encounter Summary ---
Author Organization [facility] Address [address] [place] [address] Care Team Providers Care Acquisition Manager Name Role Phone Preston Moulton Primary Care Provider [phone] Encounter Details Date Type Department Care Team (Late st Contact Info) Description 05/09/2023 Orders Only [facility] Primary Care [address] [place] [address] Preston Moulton PA [address] [place] [address] Social History Tobacco Use Types [...] often do you attend chur ch or latter day services? More than 4 times per year [...] on file Legal Sex Male 9:22 AM FINISHER SCREWDOWN Gender Identity Male 11/18/2021 1:25 PM FINISHER SCREWDOWN Sexual Orientation Straight 11/18/2021 1: 25 PM FINISHER SCREWDOWN documented as of this encounter Ordered Prescriptions Prescription Sig Dispense Quantity Refills Last Filled Start Date End Date doxycycline (doxycycline hyclate) 100 mg capsule Take 1 tablet/capsul e (100 mg total) by mouth 2 (two) times a day for 10 days Please give hyclate 20 capsule 05/09/2023 3 documented in this encounter Plan of Treatment Not on file documented as of this encounter Visit Diagnoses Not on filedocumented in this encounter Care Teams Acquisition Manager Relationship Specialty Start Date End Date Preston Moulton PA PCP - General Family Medicine 03/10/23 documented as of this encounter
--- OUTSIDE RECORDS SUMMARY | 2024-10-02 02:34 | XMS_ITS | Encounter Summary ---
Author Organization [facility] Address [address] [place] [address] Care Team Providers Care Boot Lace Cutter Machine Name Role Phone Preston Moulton Primary Care Provider [phone] Reason for Visit * Reason Onset Date Comments Medical Question/Miscellaneous 03/10/2023 return call 03/10/2023 Encounter Details Date Type Department Care Team ([facility] st Contact Info) Description 03/10/2023 Telephone [facility] Primary Care [address] [address] Lemuel Frost MD [address] [facility] [facility] [address] [place] [address] Medical Question/Miscellaneous; return call Social History Tobacco Use Types Packs/Day Years [...] often do you attend chur ch or religion services? More than 4 times per year 02/11/2023 Do you belong to any clubs o r organizations such as spiritism groups, unions, fraternal or athletic groups, or [...] on file Legal Sex Male 9:22 AM INSIDE SALES MANAGER Gender Identity Male 11/18/2021 1:25 PM INSIDE SALES MANAGER Sexual Orientation Straight 11/18/2021 1: 25 PM INSIDE SALES MANAGER documented as of this encounter Miscellaneous Notes * Telephone Encounter - Rosa Clarke MA - 03/10/2023 2:14 PM CDT Spoke with patient, work note sent through my chart * Telephone Encounter - Rozina Beaver - 03/10/2023 11:16 AM CDT Pt returned Rosa's call. Thanks. [facility] [phone] * Telephone Encounter - Teri Gonzalez - 03/10/2023 11:14 AM CDT Call Back Caller???s Concern: Patient calling back a she missed call from Rosa. Warm transferred to back line Caller???s Call back #: [phone] Does message need to be routed? No * Telephone Encounter - Rosa Clarke MA - 03/10/2023 11:08 AM CDT LM to call office * Telephone Encounter - Rachel Barton - 03/10/2023 8:54 AM CDT Medical Question/Miscellaneous Caller???s Concern: Patient calling back regarding his work status. Should he return to work next or remain off due to vision loss. Patient says the new glasses he just got they are no longer helpingout. Needs new lens. Unable to see. If patient is to be off work will need a work note saying underprovider's care and that he was off work still and need to be off again next week. Patient would like to have note sent to my chart. Patient is hoping to get in with unhairer as soon as possible, waiting vibration technician from specialist. Caller???s Call back #: [phone] Does message need to be routed? Yes-Action Needed documented in this encounter Plan of Treatment Not on file documented as of this encounter Procedures Procedure Name Priority Date/Time Associated Diagnosis Comments DIABETIC EYE EXAM Routine 02/24/2023 documented in this encounter Results * Diabetic Eye Exam (02/24/2023) Historical Provider HEALTH MAINTENANCE Final Result documented in this encounter Visit Diagnoses Not on filedocumented in this encounter Care Teams Boot Lace Cutter Machine Relationship Specialty Start Date End Date Preston Moulton PA PCP - General Family Medicine 03/10/23 documented as of this encounter
--- OUTSIDE RECORDS SUMMARY | 2024-10-02 02:34 | XMS_ITS | Encounter Summary ---
Author Organization [facility] Healthcare Address [address] [place] [address] Care Team Providers Care Exhaust Worker Name Role Phone Preston Moulton Primary Care Provider [phone] Reason for Visit * Reason Comments Abdominal Pain * Auth/Cert (Routine) Specialty Diagnoses / Procedures Referred By Contac t Referred To Contact Diagnoses Cholecystitis Hyperglycemia Hypertension, unspecified type Procedures na Referral ID Status Reason Start Date Expiration Date Visits Re quested Visits Authorized [id number] 1 1 Encounter Details Date Type Department Care Team (Latest Contact Info) Description 10/21/2023 4:05 AM PATHOLOGIST ASSISTANT - 10/22/2023 2:00 PM PATHOLOGIST ASSISTANT Hospital Encounter [place] [id number] [address] [place] [id number] Sandeep Keene DO [address] [place] [address] [place] [address] John Lamar MD [address] [place] [address] [place] [address] Cholecystitis (Primary Dx); Hypertension, unspecified type; Hyperglycemia; Acute cholecystitis; Calculus of gallbladder with acute cholecystitis without obstruction [K80.00]; RUQ pain [R10.11]; Type 2 diabetes mellitus with hyperglycemia, with long-term current use of insulin (CMS/HCC) (HCC) [E11.65, Z79.4] Discharge Disposition: Discharge to home or self [...] often do you attend chur ch or restoration services? More than 4 times per year 02/11/2023 Do you belong to any clubs o r organizations such as jehovah's witness groups, unions, fraternal or athletic groups, or [...] place to sleep or slept in a snf (including now)? No 02/11/2023 Personal Safety Answer Date Recorded Have you ever been in or are you currently in a harmful physical or emotional relationship or is someone making you feel afraid or unsafe? Denies 10/21/2023 Sex and Gender Information Value Date Recorded Sex Assigned at Not on file Legal Sex Male 9:22 AM PATHOLOGIST ASSISTANT Gender Identity Male 11/18/2021 1:25 PM PATHOLOGIST ASSISTANT Sexual Orientation Straight 11/18/2021 1: 25 PM PATHOLOGIST ASSISTANT documented as of this encounter Last Filed Vital Signs Vital Sign Reading Time Taken Comments Blood Pressure 126/95 10/22/2023 7:22 AM PATHOLOGIST ASSISTANT Pulse 82 10/22/2023 7:22 AM PATHOLOGIST ASSISTANT Temperature 36.8 ??C (98.2 ??F) 10/22/2023 7:22 AM CS T Respiratory Rate 16 10/22/2023 7:22 AM PATHOLOGIST ASSISTANT Oxygen Saturation 96% 10/22/2023 7:22 AM PATHOLOGIST ASSISTANT Inhaled Oxygen Concentration - - Weight 79.7 kg (175 lb 9.6 oz) 10/21/2023 3:55 P M PATHOLOGIST ASSISTANT Height 172.7 cm (5' 7.99 ) 10/21/2023 3:55 PM CS T Body Mass Index 26.71 10/21/2023 3:55 PM PATHOLOGIST ASSISTANT documented in this encounter Discharge Summaries * John Lamar MD - 10/22/2023 1:04 PM CST Inpatient Discharge Summary Patient Name - Jose Roberto Pack Patient Age - 43 yrs Patient - [id number] [facility] - [id number] Document Creation Date: 10/22/2023 Admitting Provider, : John Lamar MD Discharge Provider, MD: John Lamar MD Primary Care Physician at Discharge: Preston Moulton PA [phone] Admission Date: 10/21/2023 Discharge Date/time: 10/22/2023 Admission Location: [facility] LOS - LOS: 1 day DETAILS OF HOSPITAL STAY Hospital Problems/Diagnoses Active Problems: Type 2 diabetes mellitus with hyperglycemia, with long-term current use of insulin ([facility]) ([facility]) Mixed hyperlipidemia RUQ pain Calculus of gallbladder [...] hyperglycemia, with long-term current use of insulin ([facility]) ([facility]) Mixed hyperlipidemia Resolved Problems: No resolved hospital [...] Follow-up: Patient follows up with Dr. Jacob narayanan Allergies: Patient has no known allergies. Discharge [...] Your Medications These medications were sent to [id number] - [place], [place] - [address] [facility] [address], [facility] [id number] HYDROcodone-acetaminophen 5-325 mg per tablet Information about [...] Follow-ups Edmundo James MD Specialty: General Surgery [address] [address] Next Steps: Follow up in 2 week(s) Please schedule an appointment with the following provider(s): Edmundo James MD [address] [place] [phone] Follow up in 2 week(s) ANCILLARY [...] Edmundo Tapia M.D. KN: IRENA Report ID: [id number] Reading Location: [id number] CT Abdomen Pelvis W Contrast Result Date: [...] COMPARISON: CT of the abdomen and pelvis ofly 2022. REFERENCE: Per ACR white paper recommendations, [...] by Renae Patel M.D. SN: Report ID: [id number] Reading Location: [place] [address] Recent Labs: Recent Labs Lab Units 10/22/23 0505 10/21/23 0402 WBC K/cumm 13.0* 8.8 HEMOGLOBIN g/dL 12.9* 14.9 HEMATOCRIT % 36.3* 41.4 PLATELETS K/cumm 274 316 Recent Labs Lab Units 10/22/23 0505 10/21/23 0402 WBC K/cumm 13.0* 8.8 HEMOGLOBIN g/dL 12.9* 14.9 HEMATOCRIT % 36.3* 41.4 PLATELETS K/cumm 274 316 NEUTROS PCT % 77.1 58.1 LYMPHS PCT % 13.0 27.7 MONOS PCT % 9.1 8.7 EOS PCT % 0.2 4.1 Recent Labs Lab Units 10/22/23 0810/22/23 0505 10/21/23 0858 10/21/23 0402 SODIUM mmol/L -- 140 -- 137 POTASSIUM PLASMA mmol/L -- 4.1 -- 3.6 CHLORIDE mmol/L -- 105 -- 100 CO2 mmol/L -- 24 -- 24 BUN SERUM mg/dL -- 10 -- 11 CREATININE mg/dL -- 1.00 -- 0.90 [id number] mL/min/1.73 m2 -- 95 -- 107 GLUCOSE mg/dL -- 248* -- 291* POC GLUCOSE MONITOR mg/dL 204* -- < > -- CALCIUM mg/dL -- 8.7 -- 9.4 ALBUMIN g/dL -- 3.9 -- 4.2 < > = values in this interval not displayed. Recent Labs Lab Units 10/22/23 0819 10/22/23 0505 10/21/23 2210 10/21/23 0858 10/21/23 0402 SODIUM mmol/L -- 140 -- -- [...] Diet type Regular Other Services: No Straws 10/21/231717 Anticoagulation Indication: INR: No results found for [...] G Right Antecubital (Active) Placement Date/Time: 10/21/23 040 Type: Angiocath Size (Gauge): 20 G Location Orientation: Right Location: Antecubital Patient Emergency Contact: Primary Emergency Contact: Chayito Cortez Immunization Status at Discharge Immunization History Administered Date(s) Administered DTP 04/07/1984, 04/27/1991, 06/29/1991, 01/04/1992, 02/08/1992 Hep B Vaccine 07/19/2011, 08/23/2011, 05/01/2012 Andrei (J&J) SARS-CoV-2 Vaccination 02/14/2021 MMR 04/27/1991, 06/29/1991 Measles / Rubella 04/07/1984 OPV 04/07/1984, 04/27/1991, 06/29/1991, 01/04/1992 Td, Unspecified 09/06/2011 John Lamar MD OLOGIST ASSISTANT documented in this encounter Discharge Instructions * Discharge Instructions* Foster Swenson MD - 10/22/2023 10:30 AM PATHOLOGIST ASSISTANT Okay to return to work 10/24/23. No lifting pushing pulling greater than 10 lb for 2 weeks postop. OLOGIST ASSISTANT * Attachments The following attachments cannot be sent through Care Everywhere. * Type 2 Diabetes in Adults ([facility](R) Instructions(ER/ED)) (Ukrainian) * Laparoscopic Cholecystectomy (Discharge Care) (Ukrainian) documented in this encounter Medications at Time [...] Daily, Edmundo James MD, 40 mg at 10/22/23 09 fenofibrate nanocrystallized (TRICOR) tablet 145 mg, 145 [...] MD, Last Rate: 125 mL/hr at 10/21/23 171, 125 mL/hr at 10/21/23 171 morphine injection 2 mg, 2 mg, intravenous, Q3H PRN, Edmundo James MD, 2 mg at 10/21/23 221 ondansetron ODT (ZOFRAN-ODT) disintegrating tablet 4 mg, 4 mg, oral, Q6H PRN OR ondansetron (ZOFRAN) injection 4 mg, 4 mg, intravenous, Q6H PRN, Edmundo James MD pantoprazole DR (PROTONIX) extended release tablet 40 mg, 40 mg, oral, Daily, Edmundo James MD, 40 mg at 10/22/23 0935 piperacillin-tazobactam (ZOSYN) 3.375 gram/115 mL in sodium chloride 0.9% (premix) 3.375 g, 3.375 g, intravenous, Q8H KELY, Edmundo James MD, Last Rate: 28.8 mL/hr at 10/22/23 0625, 3.375 g at 10/22/23 0625 ramelteon (ROZEREM) tablet 8 mg, 8 mg, oral, Nightly PRN, Edmundo James MD rosuvastatin (CRESTOR) tablet 20 mg, 20 mg, oral, Nightly, Edmundo James MD, 20 mg at sodium chloride 0.9% flush 0.5-20 mL, 0.5-20 mL, intra-catheter, Q8H Jcaob EDGE Kevin T., MD sodium chloride 0.9% flush 0.5-20 mL, 0.5-20 mL, intra-catheter, PRN, Edmundo James MD sodium chloride 0.9% flush 0.5-20 mL, 0.5-20 mL, intra-catheter, Q8H KELY, Edmundo James MD sodium chloride 0.9% flush [...] Final Comment: Testing performed by: [facility] [address] [place] [address]., [address] 10/21/2023 8.8 3.8 - 9.9 K/cumm Final Comment: Testing performed by: [facility] [address] [place] [address]., [address] Hgb Date Value Ref Range Status 10/22/2023 12.9 (L) 13.0 - 17.5 g/dL Final Comment: Testing performed by: [facility] [address] [place] [address]., [address] 10/21/2023 14.9 13.0 - 17.5 g/dL Final Comment: Testing performed by: [facility] [address] [place] [address]., [address] Hct Date Value Ref Range Status 10/22/2023 36.3 (L) 38.9 - 50.3 % Final Comment: Testing performed by: [facility] [address] [place] [address]., [address] 10/21/2023 41.4 38.9 - 50.3 % Final Comment: Testing performed by: [facility] [address] [place] [address]., [address] Plt Date Value Ref Range Status 10/22/2023 274 150 - 400 K/cumm Final Comment: Testing performed by: [facility] [address] [place] [address]., [address] 10/21/2023 316 150 - 400 K/cumm Final Comment: Testing performed by: [facility] [address] [place] [address]., [address] AST Date Value Ref Range Status 10/22/2023 92 (H) 10 - 50 Units/L Final Comment: Testing performed by: [facility] [address] [place] [address]., [address] 10/21/2023 <5 (L) 10 - 50 Units/L Final Comment: HEMOLYZED: Hemolysis interferes with the above test. Lipemic specimen Testing performed by: [facility] [address] [place] [address]., [address] ALT Date Value Ref Range Status 10/22/2023 134 (H) 7 - 55 Units/L Final Comment: Testing performed by: [facility], [address] [place] [address]., [address] 10/21/2023 52 7 - 55 Units/L Final Comment: Lipemic specimen Testing performed by: [address] [address] Alk phos Date Value Ref Range Status 10/22/2023 72 40 - 130 Units/L Final Comment: Testing performed by: [address] [address] 10/21/2023 89 40 - 130 Units/L Final Comment: Testing performed by: [address], [place]., [address] Albumin Date Value Ref Range Status 10/22/2023 3.9 3.5 - 5.0 g/dL Final Comment: Testing performed by: [address] [address] 10/21/2023 4.2 3.5 - 5.0 g/dL Final Comment: Testing performed by: [address], [place]., [address] Lipase Date Value Ref Range Status 10/21/2023 26 10 - 99 Units/L Final Comment: Testing performed by: [address] [address] 03/30/2023 57 10 - 99 Units/L Final Comment: Testing performed by: [address] [address] ASSESSMENT: 1 Day Post-Op s/p Procedure(s): LAPAROSCOPIC CHOLECYSTECTOMY Active Problems: Type 2 diabetes mellitus with hyperglycemia, with long-term current use of insulin ([facility]/HCC) (HCC) Mixed hyperlipidemia RUQ pain Calculus of gallbladder with acute cholecystitis without obstruction PLAN: Overall doing well. DC drain. Okay for discharge home. Foster Swenson MD 10/22/2023 This examination was transcribed using the [employer] voice recognition system without human army ranger. In an effort to expedite patient care, this report has not been adjusted for typographical, grammatical, and syntax by a trained medical supervisor. OLOGIST ASSISTANT documented in this encounter H&P Notes * Sandra Valladares PA - 10/21/2023 10:59 AM CST Images from the original note were not included. History and Physical Date of Service: 10/21/2023 Date of Admission:10/21/2023 Primary Care Physician: Preston Moulton, ALFREDITO [phone] CHIEF COMPLAINT: Patient is a 43 y.o. [...] Hypertension Brother OBJECTIVE: Vitals: Arrival Vitals Temp 10/21/23352 36.8 ??C (98.2 ??F) Pulse 10/21/23352 78 Resp 10/21/23352 18 BP 10/21/23352 (!) 173/116 SpO2 10/21/23352 98 % Temp src 10/21/23352 Oral Heart Rate Source 10/21/23429 Monitor Patient Position -- BP Location -- FiO2 (%) -- O2 Therapy for the past 12 hrs: O2 Therapy 10/21/23 0845 None (Room air) 10/21/23 06 None (Room air) 10/21/23 043 None (Room air) 10/21/23352 None (Room air) Most Recent : Vitals: [...] enlarged lymph nodes seen by CT size criteria.REPRODUCTIVE: No significant abnormality. MUSCULOSKELETAL: No significant abnormality. [...] by Renae Patel M.D. SN: Report ID: [id number] Reading Location: [place] [address] ASSESSMENT/PLAN: Active Problems: RUQ pain Calculus of gallbladder with acute cholecystitis without obstruction Type 2 diabetes mellitus with hyperglycemia, with long-term current use of insulin ([facility]/HCC) (HCC) Mixed hyperlipidemia Resolved Problems: No resolved [...] services. Medical Decision Making Complexity: moderate DVT prophylaxis:AOL Voice recognition software [employer] Fluency Direct may have been used to dictate and transcribe this document. Battery Recharger variances may occur. Despite proofreading, typographical errors may occur. ALFREDITO Monson 10/21/2023 11:04 AM For patients or family members viewing this note through GraphOnt: This note was written as a communication [...] John Lamar MD at 10/21/2023 6:05 PM PATHOLOGIST ASSISTANT OLOGIST ASSISTANT OLOGIST ASSISTANT documented in this encounter Consult Notes * [...] Mark Rob D.O. PS: PS Report ID: [id number] Reading Location: [place] [address] IMPRESSION: Symptomatic cholelithiasis Patient Active Problem List [...] AM This examination was transcribed using the Liquid [employer] voice recognition system without human army ranger. In an effort to expedite patient care, this report has not been adjusted for typographical, grammatical, and syntax by a trained medical supervisor. OLOGIST ASSISTANT documented in this encounter Nursing Notes * Angie Laird RN - 10/22/2023 2:00 PM CST Patient discharged to home accompanied by significant other. Discharge instructions reviewed with patient, provided opportunity for questions, all questions answered. Instructed to call for any problems or concerns. Taken to discharge door in wheelchair by rn. OLOGIST ASSISTANT * Angie Laird, RN - 10/22/2023 1:00 PM CST Lap sites to abdomen dry and intact. Maci drain removed from right side of abdomen, tolerated fair. Dressing applied with 4x4 and telfa island dressing. OLOGIST ASSISTANT documented in this encounter ED Notes * Sandeep Keene, - 10/21/2023 7:03 AM CST HPI Chief [...] Pulse Resp BP SpO2 10/21/233 10/21/23 0353 10/21/23 0353 10/21/233 10/21/23352 36.8 ??C (98.2 ??F) 78 18 (!) 173/116 98 % Temp src Heart Rate Source Patient Position BP Location FiO2 (%) 10/21/23 0353 10/21/23 0430 -- -- -- Oral Monitor Height Height Method Weight Weight Method 10/21/233 10/21/233 10/21/2335210/21/23 035 1.727 m (5' 8 ) Stated 78.9 [...] Course as of 10/21/23 0810 Time: 10/21 715 Comment: CT: Noncalcified stones versus sludge balls [...] images. By: Sandeep Keene DO Time: 10/21 808 Comment: Dr. James had discussion with patient and will admit for operative management. Admissiondiscussed with Dr. Lamar. By: Sandeep Keene DO This examination was transcribed using the Liquid [employer] voice recognition system without human army ranger. In an effort to expedite patient care, this report has not been adjusted for typographical, grammatical, and syntax by a trained medical supervisor. Clinical Impression: Cholecystitis Hypertension, unspecified type Hyperglycemia Sandeep Keene DO 10/21/23 08 OLOGIST ASSISTANT * Celestina Hernandez RN - 10/21/2023 3:49 [...] come through ED it would be faster OLOGIST ASSISTANT documented in this encounter Miscellaneous Notes * [...] interventions and treatments as documented in flowsheets. OLOGIST ASSISTANT * Plan of Care - Fadia No RN - 10/21/2023 3:57 PM CST Problem: Health Behavior: Goal: Understanding of discharge needs will improve Outcome: Progressing Problem: Lack of Knowledge Goal: Knowledge of disease or condition will improve Outcome: Progressing OLOGIST ASSISTANT * Op Note - Edmundo James MD - 10/21/2023 11:19 AM CST OP NOTE Jose Roberto Poncejovita 10/21/2023 Pre-operative Diagnosis: Symptomatic cholelithiasis Post-operative Diagnosis: Acute cholecystitis Procedure: Laparoscopic Cholecystectomy with Intra-op Cholangiogram Anesthesia: General Surgeon: Edmundo James MD Wire Drawing Die Maker: [email or web address] Etcher: Nikia Bryan RN Scrub Relief: Rona Garces RN Scrub: Zora Hernandez RN SEWER PIPE LAYER: Amish Serna CRNFA Anesthesia: General Anesthesiologist: Jose Roberto Mckeon MD CHEMICAL PROCESS OPERATOR: Shi Newman CRNA; Ivana Avila CRNA Specimen: [...] stable condition. Edmundo James MD 2:23 PM OLOGIST ASSISTANT documented in this encounter Plan of Treatment Not on file documented as of this encounter Procedures Procedure Name Priority Date/Time Associated Diagnosis Comments POCT GLUCOSE DEVICE Routine 10/22/2023 8 :19 AM PATHOLOGIST ASSISTANT EGFR Routine 10/22/2023 5:05 AM PATHOLOGIST ASSISTANT DIFFERENTIAL AUTO Routine 10/22/2023 5:0 5 AM PATHOLOGIST ASSISTANT CBC WITH AUTO DIFFERENTIAL Routine 10/22/2023 5:05 AM PATHOLOGIST ASSISTANT COMPREHENSIVE METABOLIC PANEL Routine 10/22/2023 5:05 AM PATHOLOGIST ASSISTANT POCT GLUCOSE DEVICE Routine 10/21/2023 1 0:10 PM PATHOLOGIST ASSISTANT POCT GLUCOSE DEVICE Routine 10/21/2023 8 :09 PM PATHOLOGIST ASSISTANT POCT GLUCOSE DEVICE Routine 10/21/2023 5 :26 PM PATHOLOGIST ASSISTANT POCT GLUCOSE DEVICE Routine 10/21/2023 1 2:57 PM PATHOLOGIST ASSISTANT CHOLANGIOGRAM INTRAOPERATIVE IP Routine 10/21/2023 12:03 PM PATHOLOGIST ASSISTANT SURGICAL PATHOLOGY Routine 10/21/2023 11 :40 AM PATHOLOGIST ASSISTANT Acute cholecystitis LAPAROSCOPIC CHOLECYSTECTOMY 10/21/2023 10:51 AM PATHOLOGIST ASSISTANT POCT GLUCOSE DEVICE Routine 10/21/2023 1 0:09 AM PATHOLOGIST ASSISTANT POCT GLUCOSE DEVICE Routine 10/21/2023 8 :[address] ABDOMEN PELVIS W CONTRAST ED 10/21/2023 6:44 AM PATHOLOGIST ASSISTANT URINALYSIS AND REFLEX TO MICROSCOPIC AND CULTURE STAT 10/21/2023 5:21 AM PATHOLOGIST ASSISTANT EGFR STAT 10/21/2023 4:02 AM PATHOLOGIST ASSISTANT DIFFERENTIAL AUTO STAT 10/21/2023 4:0 2 AM PATHOLOGIST ASSISTANT CBC WITH AUTO DIFFERENTIAL STAT 10/21/2023 4:02 AM PATHOLOGIST ASSISTANT LIPASE STAT 10/21/2023 4:02 AM PATHOLOGIST ASSISTANT COMPREHENSIVE METABOLIC PANEL STAT 10/21/2023 4:02 AM PATHOLOGIST ASSISTANT documented in this encounter Results * (ABNORMAL) POCT glucose (10/22/2023 8:19 AM PATHOLOGIST ASSISTANT) Glucose, POC 204(H) 70 - 199 mg/dL [facility] Comment:Testing performed by : [facility], [address] [place] [address]., [address] Blood 10/22/2023 8:19 AM PATHOLOGIST ASSISTANT 10/22/2023 8:19 AM PATHOLOGIST ASSISTANT us John Lamar MD LAB POCT ORDERABLES - DEV ICE Final Result Performing Organization Address City/State/[facility] Co de Phone Number E[facility] [address] [facility] Department [place] [address] * eGFR (10/22/2023 5:05 AM PATHOLOGIST ASSISTANT) eGFR 95 mL/min/1. 73 m2 ELL[facility]OT HINES [...] was last reviewed 2021. Testing performed by: [address] [address] Blood 10/22/2023 5:05 AM PATHOLOGIST ASSISTANT 10/22/2023 5:50 AM PATHOLOGIST ASSISTANT us Edmundo James MD LAB BLOOD ORDERABLES Final R esult Performing Organization Address City/State/[facility] Co de Phone Number [facility] [address] [facility] Department [place] [address] * (ABNORMAL) Differential, auto (10/22/2023 5:05 AM PATHOLOGIST ASSISTANT) Neutrophil abs 10.0(H) 1.5 - 6.5 K/cumm E[facility]OT Comment:Testing performed by : [address] [address] Imm gran abs 0.1 0.0 - 0.1 K/cumm E[facility]OT Comment:Testing performed by : [address] [address] Lymphocyte abs 1.7 0.8 - 3.3 K/cumm E[facility]OT Comment:Testing performed by : [address] [address] Monocyte abs 1.2(H) 0.2 - 0.8 K/cumm E[facility] Comment:Testing performed by : [address] [address] Eosinophil abs 0.0 0.0 - 0.5 K/cumm E[facility] Comment:Testing performed by : [address] [address] Basophil abs 0.0 0.0 - 0.1 K/cumm E[facility]OT Comment:Testing performed by : [address] [address] Neutrophil pct 77.1 % [facility] Comment: Interpretive Data Percent cell count reference ranges are not reported, since discordance with absolute values may lead to misinterpretation of CBC data. Current Interpretive Data was last revised on 2018. Testing performed by: [address] [address] Imm gran pct 0.4 % [facility] Comment: Interpretive Data Percent cell count reference ranges are not reported, since discordance with absolute values may lead to misinterpretation of CBC data. Current Interpretive Data was last revised on 2018. Testing performed by: [address] [address] Lymphocyte pct 13.0 % [facility] Comment: Interpretive Data Percent cell count reference ranges are not reported, since discordance with absolute values may lead to misinterpretation of CBC data. Current Interpretive Data was last revised on 2018. Testing performed by: [address] [address] Monocyte pct 9.1 % [facility] Comment: Interpretive Data Percent cell count reference ranges are not reported, since discordance with absolute values may lead to misinterpretation of CBC data. Current Interpretive Data was last revised on 2018. Testing performed by: [address] [address] Eosinophil pct 0.2 % [facility] Comment: Interpretive Data Percent cell count reference ranges are not reported, since discordance with absolute values may lead to misinterpretation of CBC data. Current Interpretive Data was last revised on 2018. Testing performed by: [address] [address] Basophil pct 0.2 % [facility] Comment: Interpretive Data Percent cell count reference ranges are not reported, since discordance with absolute values may lead to misinterpretation of CBC data. Current Interpretive Data was last revised on 2018. Testing performed by: [address] [address] Blood 10/22/2023 5:05 AM PATHOLOGIST ASSISTANT 10/22/2023 5:51 AM PATHOLOGIST ASSISTANT us Edmundo James MD LAB BLOOD ORDERABLES Final R esult [facility] [address] [facility] Department [place] [address] * (ABNORMAL) CBC with auto differential (10/22/2023 5:05 AM PATHOLOGIST ASSISTANT) WBC 13.0(H) 3.8 - 9.9 K/cumm ELLIOT Comment:Testing performed by : [address] [address] Hgb 12.9(L) 13.0 - 17.5 g/dL E[facility]OT Comment:Testing performed by : [address] [address] Hct 36.3(L) 38.9 - 50.3 % E[facility]OT Comment:Testing performed by : [address] [address] Plt 274 150 - 400 K/cumm E[facility]OT Comment:Testing performed by : [address] [address] MPV 9.8 9.1 - 12.3 fL E[facility]OT Comment:Testing performed by : [address] [address] RBC 4.37 4.30 - 5.80 M/cumm ELLIOT Comment:Testing performed by : [address] [address] MCV 83.1 81.3 - 96.4 fL E[facility]OT Comment:Testing performed by : [address] [address] MCH 29.5 27.1 - 33.3 pg ELLIOT HINES Comment:Testing performed by : [address] [address] MCHC 35.5 32.3 - 35.7 g/dL E[facility]OT HINES Comment:Testing performed by : [address] [address] RDW CV 12.6 11.1 - 14.9 % E[facility]INES Comment:Testing performed by : [address] [address] RDW SD 37.9 35.7 - 48.1 fL E[facility]INES Comment:Testing performed by : [address] [address] NRBC abs 0.00 0.00 - 0.01 K/cumm E[facility]OT [facility]INES Comment:Testing performed by : [address] [address] Blood 10/22/2023 5:05 AM PATHOLOGIST ASSISTANT 10/22/2023 5:51 AM PATHOLOGIST ASSISTANT us Edmundo James MD LAB BLOOD ORDERABLES Final R esult [facility] Department [place] [address] * (ABNORMAL) Comprehensive metabolic panel (10/22/2023 5:05 AM PATHOLOGIST ASSISTANT) Sodium 140 135 - 145 mmol/L E[facility]OT [facility]INES Comment:Testing performed by : [address] [address] Potassium, pl 4.1 3.3 - 4.9 mmol/L [facility]ES Comment:Testing performed by : [address] [address] Chloride 105 97 - 110 mmol/L E[facility]INES Comment:Testing performed by : [address] [address] CO2 24 22 - 32 mmol/L E[facility]OT [facility]INES Comment:Testing performed by : [address] [address] [address] Anion gap 11 2 - 15 mmol/L ELLIOT HINES Comment:Testing performed by : [address] [address] BUN 10 6 - 25 mg/dL ELLIOT HINES Comment:Testing performed by : [address] [address] Creatinine 1.00 0.80 - 1.30 mg/dL [facility] Comment:Testing performed by : [address] [address] Glucose 248(H) 70 - 199 mg/dL [facility] Comment: Interpretive Data Fasting glucose >/= [...] was last revised 2022. Testing performed by: [address] [address] Calcium 8.7 8.5 - 10.3 mg/dL [facility] Comment:Testing performed by : [address] [address] Bilirubin, total 0.6 0.1 - 1.2 mg/dL [facility] Comment:Testing performed by : [address] [address] Protein, pl 6.8 6.5 - 8.5 g/dL [facility] Comment:Testing performed by : [address] [address] Albumin 3.9 3.5 - 5.0 g/dL [facility] Comment:Testing performed by : [address] [address] Alk phos 72 40 - 130 Units/L [facility] Comment:Testing performed by : [address] [address] ALT 134(H) 7 - 55 Units/L [facility] Comment:Testing performed by : [address] [address] AST 92(H) 10 - 50 Units/L [facility] Comment:Testing performed by : [address] [address] Blood 10/22/2023 5:05 AM PATHOLOGIST ASSISTANT 10/22/2023 5:50 AM PATHOLOGIST ASSISTANT Edmundo James MD LAB BLOOD ORDERABLES Final R esult Performing Organization Address City/[facility]/ZIP Co de Phone Number ELLIOT [address] [email or web address] [address] * (ABNORMAL) POCT glucose (10/21/2023 10:10 PM PATHOLOGIST ASSISTANT) Glucose, POC 316(H) 70 - 199 mg/dL ELLIOT Comment:Testing performed by : [address], [address] Glucose comment 1 Use This Result ELLIOT Comment:Testing performed by : [address] [address] Blood 10/21/2023 10:1 0 PM PATHOLOGIST ASSISTANT 10/21/2023 10:10 PM PATHOLOGIST ASSISTANT John Lamar MD LAB POCT ORDERABLES - DEV ICE Final Result Performing Organization Address [facility] de Phone Number SYDNEY[address] [address] * (ABNORMAL) POCT glucose (10/21/2023 8:09 PM PATHOLOGIST ASSISTANT) Glucose, POC 409(H) 70 - 199 mg/dL ELLIOT Comment:Testing performed by : [address] [address] Glucose comment 1 Use This Result ELLIOT Comment:Testing performed by : [address] [address] Blood 10/21/2023 8:09 PM PATHOLOGIST ASSISTANT 10/21/2023 8:09 PM PATHOLOGIST ASSISTANT John Lamar MD LAB POCT ORDERABLES - DEV ICE Final Result Performing Organization Address City/[facility] Co de Phone Number ELLIOT [address] [address] * (ABNORMAL) POCT glucose (10/21/2023 5:26 PM PATHOLOGIST ASSISTANT) Glucose, POC 230(H) 70 - 199 mg/dL ELLIOT Comment:Testing performed by : [address] [address] Blood 10/21/2023 5:26 PM PATHOLOGIST ASSISTANT 10/21/2023 5:26 PM PATHOLOGIST ASSISTANT John Lamar MD LAB POCT ORDERABLES - DEV ICE Final Result Performing Organization Address [facility] Co de Phone Number [address] [address] * (ABNORMAL) POCT glucose (10/21/2023 12:57 PM PATHOLOGIST ASSISTANT) Glucose, POC 249(H) 70 - 199 mg/dL ELLIOT Comment:Testing performed by : [address] [address] Blood 10/21/2023 12:5 7 PM PATHOLOGIST ASSISTANT 10/21/2023 12:57 PM PATHOLOGIST ASSISTANT John Lamar MD LAB POCT ORDERABLES - DEV ICE Final Result Performing Organization Address City/[facility] Co de Phone Number [address] [address] * [place] Cholangiogram Intraoperative (10/21/2023 12:03 PM PATHOLOGIST ASSISTANT) Anatomical Region Laterality Modality Body, Abdomen N/A Computed Radiogr aphy 10/21/2023 12:0 7 PM PATHOLOGIST ASSISTANT Narrative 10/21/2023 12:09 PM PATHOLOGIST ASSISTANT EXAM DESCRIPTION: ?? [place] CHOLANGIOGRAM INTRAOPERATIVE REASON [...] 12:09 PM - Electronically signed by ??Edmundo Tapia M.D. KN: IRENA D: ??10/21/2023 12:09 PM T: ??10/21/2023 12:09 PM Report ID: [id number] Reading Location: ??[id number] Procedure Note Edmundo Tapia MD - 10/21/2023 [...] signed by Edmundo OSBORN: IRENA Report ID: [id number] Reading Location: [id number] us Edmundo James MD IMG FLUOROSCOPY PROCEDURES F inal Result * Surgical pathology (10/21/2023 11:40 AM PATHOLOGIST ASSISTANT) Tissue (Gallbladder) 10/21/2023 11:40 AM PATHOLOGIST ASSISTANT Narrative PATHOLOGY [facility] - 10/24/2023 4:[address] [facility] Department of Pathology [address] [place] [address] ?? Note to Patients: ??This report may [...] : ??1980 (Age: 43) Gender: ??M Address: ??[address] [place] [address] ??62 [facility] #: [id number] Service: Medical Location: Patient Type: [facility] INPATIENT ? Taken: 10/21/2023 Received: 10/21/2023 Accessioned: [...] is based on a microscopic examination of phlebotomy services representative sections of each tissue sample Clinical [...] and the wall thickness averages 0.3 cm. ??Time Piece Repairer sections to include the gallbladder neck resection margin and full-thickness sections from the neck, body and fundus are submitted. ?? Labeled A1. Griselda Bearden. ?? jjmhb/10/21/2023 14:43 AICHA Do, PA ([facility]) Microscopic slide review and interpretation for this case was performed at [facility], Department of Surgical Pathology, [address] [facility] [place], [place] [id number], ??[facility], [place] ??[address] ?? CLIA # [id number] us Edmundo James MD LAB PATHOLOGY ORDERABLES Fin al Result Performing Organization Address [facility] Co de Phone Number PATHOLOGY [facility] * (ABNORMAL) POCT glucose (10/21/2023 10:09 AM PATHOLOGIST ASSISTANT) Glucose, POC 236(H) 70 - 199 mg/dL ELLIOT Comment:Testing performed by : [address] [address] Glucose comment 1 Use This Result ELLIOT Comment:Testing performed by : [address] [address] Blood 10/21/2023 10:0 9 AM PATHOLOGIST ASSISTANT 10/21/2023 10:09 AM PATHOLOGIST ASSISTANT us John Lamar MD LAB POCT ORDERABLES - DEV ICE Final Result Performing Organization Address [facility] Co de Phone Number [facility] [address] [facility] Department of Laboratories [place], [place] [id number] * (ABNORMAL) POCT glucose (10/21/2023 8:58 AM PATHOLOGIST ASSISTANT) Glucose, POC 256(H) 70 - 199 mg/dL ELLIOT Comment:Testing performed by : [address] [address] Glucose comment 1 Use This Result ELLIOT Comment:Testing performed by : [address] [address] Blood 10/21/2023 8:58 AM PATHOLOGIST ASSISTANT 10/21/2023 8:58 AM PATHOLOGIST ASSISTANT us John Lamar MD LAB POCT ORDERABLES - DEV ICE Final Result ELLIOT [address] [facility] Department [place] [address] * CT Abdomen Pelvis W Contrast (10/21/2023 6:44 AM PATHOLOGIST ASSISTANT) Anatomical Region Laterality Modality Body N/A Computed Tomogra phy 10/21/2023 6:50 AM PATHOLOGIST ASSISTANT Narrative 10/21/2023 6:53 AM PATHOLOGIST ASSISTANT EXAM DESCRIPTION: ?? CT ABDOMEN PELVIS W [...] AM T: ??10/21/2023 6:53 AM Report ID: [id number] Reading Location: ??[id number] Procedure Note Renae Patel MD - 10/21/2023 [...] by Renae Patel M.D. SN: Report ID: [id number] Reading Location: [place] [address] us Mohsen Orona DO IMG CT PROCEDURES Final Result * (ABNORMAL) Urinalysis reflex to microscopic and culture Urine (10/21/2023 5:21 AM PATHOLOGIST ASSISTANT) Color, ur Yellow Yellow ELLIOT Comment:Testing performed by : [address] [address] Clarity, ur Cloudy(A) Clear ELLIOT Comment:Testing performed by : [address], [place]., [address] Specific gravity, ur 1.031(H) 1.003 - 1.030 ELLIOT Comment:Testing performed by : [address] [address] pH, urine 6.5 ELLIOT Comment: Interpretive Data ? Urine pH is affected by diet, medications, systemic acid-base disturbances, and renal tubular function. ??pH may affect urinary stone formation. ??For example, urine pH below 6.0 may help reduce the tendency for calcium phosphate stones and pH greater than 6.0 may reduce the tendency for uric acid stone formation. Source: [email or web address] Current Interpretive Data was last revised on 2017 Testing performed by: [address] [address] Protein, ur ql Negative Negative ELLIOT Comment:Testing performed by : [address] [address] Glucose, ur ql 4+(A) Negative ELLIOT Comment:Testing performed by : [address] [address] Ketones, ur Negative Negative E[facility]IOT Comment:Testing performed by : [address] [address] Bilirubin, ur Negative Negative ELLIOT Comment:Testing performed by : [address] [address] Blood, ur Negative Negative ELLIOT Comment:Testing performed by : [address] [address] Urobilinogen, ur <2.0 <2.0 mg/dL ELL[facility]OT Comment:Testing performed by : [address], [place]., [address] Nitrite, ur Negative Negative ELLIOT Comment:Testing performed by : [address] [address] Leukocyte esterase, ur Negative Negative ELLIOT HINES Comment:Testing performed by : [facility], [address] [place] [address]., [address] UA reflex comment Reflex conditions for microscopic UA and culture not met. ELLIOT Comment:Testing performed by : [facility], [address] [place] [address]., [address] Urine 10/21/2023 5:21 AM PATHOLOGIST ASSISTANT 10/21/2023 5:51 AM PATHOLOGIST ASSISTANT us Sandeep Keene DO LAB MICROBIOLOGY - GENERAL ORDERABLES Final Result ELLIOT [address] [facility] Department [place] [address] * eGFR (10/21/2023 4:02 AM PATHOLOGIST ASSISTANT) eGFR 107 mL/min/1. 73 m2 ELLIOT HINES [...] was last reviewed 2021. Testing performed by: [address] [address] Blood 10/21/2023 4:02 AM PATHOLOGIST ASSISTANT 10/21/2023 5:18 AM PATHOLOGIST ASSISTANT Sandeep Keene DO LAB BLOOD ORDERABLES Final Result [facility] [address] [facility] Department [place] [address] * Differential, auto (10/21/2023 4:02 AM PATHOLOGIST ASSISTANT) Neutrophil abs 5.1 1.5 - 6.5 K/cumm ELLIOT Comment:Testing performed by : [address] [address] Imm gran abs 0.1 0.0 - 0.1 K/cumm ELLIOT Comment:Testing performed by : [address] [address] Lymphocyte abs 2.4 0.8 - 3.3 K/cumm ELLIOT Comment:Testing performed by : [address] [address] Monocyte abs 0.8 0.2 - 0.8 K/cumm ELLIOT Comment:Testing performed by : [address] [address] Eosinophil abs 0.4 0.0 - 0.5 K/cumm ELLIOT Comment:Testing performed by : [address] [address] Basophil abs 0.1 0.0 - 0.1 K/cumm ELLIOT Comment:Testing performed by : [address] [address] Neutrophil pct 58.1 % ELLIOT Comment: Interpretive Data Percent cell count reference ranges are not reported, since discordance with absolute values may lead to misinterpretation of CBC data. Current Interpretive Data was last revised on 2018. Testing performed by: [address] [address] Imm gran pct 0.7 % ELLIOT Comment: Interpretive Data Percent cell count reference ranges are not reported, since discordance with absolute values may lead to misinterpretation of CBC data. Current Interpretive Data was last revised on 2018. Testing performed by: [address] [address] Lymphocyte pct 27.7 % ELLIOT Comment: Interpretive Data Percent cell count reference ranges are not reported, since discordance with absolute values may lead to misinterpretation of CBC data. Current Interpretive Data was last revised on 2018. Testing performed by: [address] [address] Monocyte pct 8.7 % ELLIOT Comment: Interpretive Data Percent cell count reference ranges are not reported, since discordance with absolute values may lead to misinterpretation of CBC data. Current Interpretive Data was last revised on 2018. Testing performed by: [address] [address] Eosinophil pct 4.1 % ELLIOT Comment: Interpretive Data Percent cell count reference ranges are not reported, since discordance with absolute values may lead to misinterpretation of CBC data. Current Interpretive Data was last revised on 2018. Testing performed by: [address] [address] Basophil pct 0.7 % ELLIOT Comment: Interpretive Data Percent cell count reference ranges are not reported, since discordance with absolute values may lead to misinterpretation of CBC data. Current Interpretive Data was last revised on 2018. Testing performed by: [address] [address] Blood 10/21/2023 4:02 AM PATHOLOGIST ASSISTANT 10/21/2023 5:06 AM PATHOLOGIST ASSISTANT us Sandeep Keene DO LAB BLOOD ORDERABLES Final Result ELLIOT HINES [address] [facility] Department of Laboratories [place], [place] [id number] * Lipase (10/21/2023 4:02 AM PATHOLOGIST ASSISTANT) Lipase 26 10 - 99 Units/L ELLIOT HINES Comment:Testing performed by : [address] [address] Blood (Blood, Venous) 10/21/2023 4:02 AM PATHOLOGIST ASSISTANT 10/21/2023 5:18 AM PATHOLOGIST ASSISTANT us Sandeep Keene DO LAB BLOOD ORDERABLES Final Result [facility] [address] [facility] Department [place] [address] * (ABNORMAL) Comprehensive metabolic panel (10/21/2023 4:02 AM PATHOLOGIST ASSISTANT) Sodium 137 135 - 145 mmol/L ELLIOT Comment:Testing performed by : [address] [address] Potassium, pl 3.6 3.3 - 4.9 mmol/L ELLIOT Comment:Testing performed by : [address] [address] Chloride 100 97 - 110 mmol/L ELLIOT Comment:Testing performed by : [address] [address] CO2 24 22 - 32 mmol/L ELLIOT Comment:Testing performed by : [address] [address] Anion gap 13 2 - 15 mmol/L ELLIOT Comment:Testing performed by : [address] [address] BUN 11 6 - 25 mg/dL ELLIOT Comment:Testing performed by : [address] [address] Creatinine 0.90 0.80 - 1.30 mg/dL ELLIOT Comment:Testing performed by : [address] [address] Glucose 291(H) 70 - 199 mg/dL ELLIOT [...] was last revised 2022. Testing performed by: [address] [address] Calcium 9.4 8.5 - 10.3 mg/dL ELLIOT Comment:Testing performed by : [address] [address] Bilirubin, total 0.3 0.1 - 1.2 mg/dL ELLIOT Comment:Testing performed by : [address] [address] Protein, pl 7.2 6.5 - 8.5 g/dL ELLIOT Comment:Testing performed by : [address] [address] Albumin 4.2 3.5 - 5.0 g/dL ELLIOT Comment:Testing performed by : [address] [address] Alk phos 89 40 - 130 Units/L ELLIOT Comment:Testing performed by : [address] [address] ALT 52 7 - 55 Units/L ELLIOT Comment: Lipemic specimen Testing performed by: [address] [address] AST <5(L) 10 - 50 Units/L ELLIOT Comment: HEMOLYZED: Hemolysis interferes with the above test. Lipemic specimen Testing performed by: [address] [address] Blood 10/21/2023 4:02 AM PATHOLOGIST ASSISTANT 10/21/2023 5:18 AM PATHOLOGIST ASSISTANT us Sandeep Keene DO LAB BLOOD ORDERABLES Final Result ELLIOT [address] [facility] Department [place] [address] * (ABNORMAL) CBC with auto differential (10/21/2023 4:02 AM PATHOLOGIST ASSISTANT) [facility] Signature WBC 8.8 3.8 - 9.9 K/cumm ELLIOT HINES Comment:Testing performed by : [address] [address] Hgb 14.9 13.0 - 17.5 g/dL ELLIOT Comment:Testing performed by : [address], [address] Hct 41.4 38.9 - 50.3 % ELLIOT Comment:Testing performed by : [address], [address] Plt 316 150 - 400 K/cumm ELLIOT Comment:Testing performed by : [address], [address] MPV 10.3 9.1 - 12.3 fL ELILOT Comment:Testing performed by : [address], [address] RBC 4.90 4.30 - 5.80 M/cumm ELLIOT Comment:Testing performed by : [address], [address] MCV 84.5 81.3 - 96.4 fL ELLIOT Comment:Testing performed by : [address], [address] MCH 30.4 27.1 - 33.3 pg ELLIOT Comment:Testing performed by : [address], [address] MCHC 36.0(H) 32.3 - 35.7 g/dL ELLIOT Comment:Testing performed by : [address], [address] RDW CV 12.7 11.1 - 14.9 % ELLIOT Comment:Testing performed by : [address], [address] RDW SD 38.9 35.7 - 48.1 fL ELLIOT Comment:Testing performed by : [address], [address] NRBC abs 0.00 0.00 - 0.01 K/cumm ELLIOT Comment:Testing performed by : [facility], [address] [place] [address], [place]., [address] Blood (Blood, Venous) 10/21/2023 4:02 AM PATHOLOGIST ASSISTANT 10/21/2023 5:06 AM PATHOLOGIST ASSISTANT us Sandeep Keene DO LAB BLOOD ORDERABLES Final Result ELLIOT [address] [facility] Department [place] [address] documented in this encounter Visit Diagnoses Diagnosis Cholecystitis- Primary Cholecystitis, unspecified Hypertension, unspecified type Hyperglycemia Other abnormal glucose Acute cholecystitis Calculus of gallbladder with acute cholecystitis without obstruction [K80.00] RUQ pain [R10.11] Abdominal pain, right upper quadrant Type 2 diabetes mellitus with hyperglycemia, with long-term current use of insulin (CMS/HCC) (HCC) [E11.65, Z79.4] RUQ pain Abdominal pain, right upper quadrant Calculus of gallbladder with acute cholecystitis without obstruction Type 2 diabetes mellitus with hyperglycemia, with long-term current use of insulin ([facility]) Mixed hyperlipidemia documented in this encounter Admitting Diagnoses Diagnosis Cholecystitis Cholecystitis, unspecified documented in this encounter Administered Medications Inactive Administered Medications - up to 3 most recent administrations Medication Order MAR Action Action Date Dose Rate Site acetaminophen (TYLENOL) tablet 975 mg 975 mg, oral, Once, On Tue10/21/23 at 1000, For 1 dose, Pre-Op Given 10/21/2023 9:35 AM PATHOLOGIST ASSISTANT 975 mg dextrose (D10W) 10% bolus 250 mL 250 [...] Call MD for each episode of hypoglycemia. [employer] INSTALLER STATES GLUTOSE-15 CONTAINS GLUCOSE 40% W/W (50% W/V), Indications: hypoglycemic disorderIndications:hypogl ycemic disorder enoxaparin (LOVENOX) syringe 40 mg 40 mg, subcutaneous, Daily, First dose on Tue10/22/23 at 0900, Indications: Deep Vein Thrombosis PreventionIndications:Deep Vein Thrombosis Prevention Given 10/22/2023 9:35 AM PATHOLOGIST ASSISTANT 40 mg Right Lower Abdomen famotidine (PEPCID) tablet 20 mg 20 mg, oral, Once, On Tue10/21/23 at 1000, For 1 dose, Pre-Op Given 10/21/2023 9:35 AM PATHOLOGIST ASSISTANT 20 mg fenofibrate nanocrystallized (TRICOR) tablet 145 mg 145 mg, oral, Nightly, First dose on Tue10/21/23 at 2100 Given 10/21/2023 8:52 PM PATHOLOGIST ASSISTANT 145 mg glucagon injection 1 mg 1 [...] 1557, Indications: PainIndications:Pain Given 10/22/2023 11:45 AM PATHOLOGIST ASSISTANT 2 tablets Given 10/22/2023 6:34 AM PATHOLOGIST ASSISTANT 2 tablets Given 10/21/2023 5:25 PM PATHOLOGIST ASSISTANT 2 tablets insulin glargine (LANTUS, SEMGLEE) 100 unit/mL injection 40 Units 40 Units, subcutaneous, Nightly, First dose on Tue10/21/23 at 2100, Do not mix with other insulins Given 10/21/2023 8:53 PM PATHOLOGIST ASSISTANT 40 Units Left Upper Arm insulin lispro [...] Diabetes MellitusIndications:Diabetes Mellitus Given 10/22/2023 9:34 AM PATHOLOGIST ASSISTANT 2 Units Right Upper Arm Given 10/21/2023 10:23 PM PATHOLOGIST ASSISTANT 4 Units R ight Upper Arm Given 10/21/2023 6:04 PM PATHOLOGIST ASSISTANT 2 Units Ri ght Upper Arm ioversoL (OPTIRAY 350) syringe 90 mL 90 mL, intravenous, Once in imaging, contrast, Starting on Tue10/21/23 at 0620, For 1 dose Contrast Given 10/21/2023 6:39 AM PATHOLOGIST ASSISTANT 90 mL ketorolac (TORADOL) 30 mg/mL (1 mL) injection 15 mg 15 mg, intravenous, Every 6 hours PRN, 1st line for pain, Starting on Tue10/21/23 at 1557, For 5 days, For Adult IV push, administer over 15 seconds Given 10/22/2023 1:11 PM PATHOLOGIST ASSISTANT 15 mg Lactated Ringer's (LR) infusion 125 mL/hr, intravenous, Continuous, Starting on Tue10/21/23 at 1330, Phase I New Bag 10/21/2023 5:17 PM PATHOLOGIST ASSISTANT 125 mL/hr 125 mL/hr morphine injection 2 mg 2 mg, intravenous, Administer over 4 Minutes, Every 3 hours PRN, 3rd line for pain, Starting on Tue10/21/23 at 1557, Indications: PainIndications:Pain Given 10/21/2023 10:11 PM PATHOLOGIST ASSISTANT 2 mg ondansetron (ZOFRAN) injection 4 mg [...] Non-Bleeding Gastric Disorder Given 10/22/2023 9:35 AM PATHOLOGIST ASSISTANT 40 mg piperacillin-tazobactam (ZOSYN) 3.375 gram/115 mL in sodium chloride 0.9% (premix) 3.375 g 3.375 g, intravenous, at 28.8 mL/hr, Administer over 4 Hours, Every 8 hours scheduled, First dose on Tue10/21/23 at 1700, Dose and frequency are based on a 4hr infusion time and may be inappropriate for shorter infusions. Please infuse via secondary line to ensure complete administration., Indications: Abdominal/Pelvic InfectionIndications:Abdomina l/Pelvic Infection New Bag 10/22/2023 6:25 AM PATHOLOGIST ASSISTANT 3.375 g 28.8 mL/hr New Bag 10/21/2023 10:11 PM PATHOLOGIST ASSISTANT 3.375 g 28.8 mL/hr New Bag 10/21/2023 5:16 PM PATHOLOGIST ASSISTANT 3.375 g 28.8 mL/hr piperacillin-tazobactam (ZOSYN) 4.5 g in sodium chloride 0.9% 100 mL IVPB 4.5 g, intravenous, at 200 mL/hr, Administer over 30 Minutes, Once, On Tue10/21/23 at 0804, For 1 dose, Loading dose per protocol Mini-Bag Plus bag, Indications: Abdominal/Pelvic InfectionIndications:Abdominal/Pelv ic Infection New Bag 10/21/2023 8:29 AM PATHOLOGIST ASSISTANT 4.5 g 200 mL/hr rosuvastatin (CRESTOR) tablet 20 mg 20 mg, oral, Nightly, First dose on Tue10/21/23 at 2100 Given 10/21/2023 8:52 PM PATHOLOGIST ASSISTANT 20 mg sodium chloride 0.9% 0.9% infusion - ADS Override Pull Starting on Tue10/21/23 at 1659, For 1 dose, Created by cabinet override New Bag 10/21/2023 5:15 PM PATHOLOGIST ASSISTANT 600 mL documented in this encounter Discontinued Medications Medication [...] Recently Administered Medications Times are shown in PATHOLOGIST ASSISTANT. Scheduled Medication Order 10/20/2023 10/21/2023 10/22/2023 acetaminophen (TYLENOL) tablet 975 mg (COMPLETED) 975 mg, oral, Once, On Tue10/21/23 at 1000, For 1 dose, Pre-Op 0930 (Canceled Entry - Provider: Tanvi Rivera RN)0935 (Given - Provider: Johnie Whitman, YUDELKA) enoxaparin (LOVENOX) syringe 40 mg 40 mg, subcutaneous, Daily, First dose on Tue10/22/23 at 0900, Indications: Deep Vein Thrombosis Prevention 0935 (Given - Provider: Angie Laird, RN) famotidine (PEPCID) tablet 20 mg (COMPLETED) 20 mg, oral, Once, On Tue10/21/23 at 1000, For 1 dose, Pre-Op 0930 (Canceled Entry - Provider: Tanvi Rivera RN)0935 (Given - Provider: Johnie Whitman, YUDELKA) fenofibrate nanocrystallized (TRICOR) tablet 145 mg 145 [...] Mellitus 0930 (Canceled Entry - Provider: Tanvi Rivera RN)0935 (Given - Provider: Johnie Whitman RN)1300 (Given - Provider: Tanvi Rivera RN)1804 (Given - Provider: Fadia No, YUDELKA)1805 (Not Given - Provider: Fadia No RN - Reason: Order parameters not met)222 (Given - Provider: Holly Stephenson RN) 0505 (Not Given - Provider: Holly Stephenson [...] Infection 1716 (New Bag - Provider: Mini Aguirre RN)2211 (New Bag - Provider: Holly Stephenson RN) 0625 (New Bag - Provider: Holly Stephenson RN)1400 (Due) piperacillin-tazobactam (ZOSYN) 4.5 g in sodium chloride 0.9% 100 mL IVPB (COMPLETED) 4.5 g, intravenous, at 200 mL/hr, Administer over 30 Minutes, Once, On Tue10/21/23 at 0804, For 1 dose, Loading dose per protocol Mini-Bag Plus bag, Indications: Abdominal/Pelvic Infection 0829 (New Bag - Provider: Heather Youssef RN)1619 (Stopped - Provider: Mini Aguirre RN) rosuvastatin (CRESTOR) tablet 20 mg 20 mg, oral, Nightly, First dose on Tue10/21/23 at 2100 2052 (Given - Provider: Holly Stephenson RN) sodium chloride 0.9% flush 0.5-20 mL 0.5-20 [...] Call MD for each episode of hypoglycemia. [employer] INSTALLER STATES GLUTOSE-15 CONTAINS GLUCOSE 40% W/W (50% [...] No, YUDELKA) 0634 (Given - Provider: Holly Stephenson, YUDELKA)1145 (Given - Provider: Angie Laird, RN - [...] seconds 1311 (Given - Provid er: Angie Laird, RN - Comment: abd) morphine injection 2 mg 2 mg, intravenous, Administer over 4 Minutes, Every 3 hours PRN, 3rd line for pain, Starting on Tue10/21/23 at 1557, Indications: Pain 2211 (Given - Provider: Holly Stephenson, YUDELKA) ondansetron (ZOFRAN) injection 4 mg(Linked Group 2) [...] Call MD for each episode of hypoglycemia. [employer] INSTALLER STATES GLUTOSE-15 CONTAINS GLUCOSE 40% W/W (50% [...] 650 mg acetaminophen (TYLENOL) tablet 975 mg albuterol 2.5 mg /3 mL (0.08 3 %) nebulizer solution 2.5 mg 10/21/2023 BUPivacaine-EPINEPHrine (MAR MELINDA with EPI) 0.5 %-1:200,000 preservative free injection 10/21/2023 Carrier Fluids for Secondary Infusion - 0.9% Sodium Chloride 2 10/21/2023 dextrose (D10W) 10% bolus 250 mL 10/21/19 dextrose (GLUTOSE) 40 % gel 15 g 10/21/19 diphenhydrAMINE (BENADRYL) 5 0 mg/mL injection 12.5 mg 10/21/2023 fentaNYL (SUBLIMAZE) preserv ative free injection 50 mcg 10/21/2023 glucagon injection 1 mg 10/21/2023 hydrALAZINE (APRESOLINE) injection 5 mg 1 0 10/21/2023 HYDROcodone-acetaminophen (N ORCO) 5-325 mg per tablet 1 tablet 10/21/2023 HYDROmorphone (DILAUDID) injection 0.2 mg 1 10/21/2023 HYDROmorphone (DILAUDID) injection 0.4 mg 1 10/21/2023 iohexoL (OMNIPAQUE) 240 mg i odine/mL injection solution 1 10/21/2023 labetaloL (NORMODYNE,TRANDAT E) injection 5 mg 1 10/21/2023 Lactated Ringer's (LR) infus ion - ADS Override Pull 1 10/21/2023 meperidine (DEMEROL) preserv ative free injection 12.5 mg 1 10/21/2023 naloxone (NARCAN) 0.4 mg/mL injection 0.04-0.4 mg 1 10/21/2023 ondansetron (ZOFRAN) injection 4 mg 2 10/21 ondansetron ODT (ZOFRAN-ODT) disintegrating tablet 4 mg 1 10/21/2023 piperacillin-tazobactam (ZOS YN) 3.375 gram/115 mL in sodium chloride 0.9% (premix) 3.375 g 1 10/21/2023 piperacillin-tazobactam (ZOS YN) 3.375 gram/65 mL in sodium chloride 0.9% (premix) 3.375 g 1 10/21/2023 prochlorperazine (COMPAZINE) injection 5 mg 1 10/21/2023 ramelteon (ROZEREM) tablet 8 mg 1 sodium chloride 0.9% flush 0.5-20 mL 4 [...] 10/21/2023 documented in this encounter Care Teams Exhaust Worker Relationship Specialty Start Date End Date Preston Moulton PA PCP - General Family Medicine 03/10/23 documented as of this encounter
--- OUTSIDE RECORDS SUMMARY | 2024-10-02 02:34 | XMS_ITS | Encounter Summary ---
Author Organization [facility] Healthcare Address [address] [place] [address] Care Team Providers Care Pie Maker Machine Name Role Phone Preston Moulton Primary Care Provider [phone] Nelly Roy LPN Unavailable [phone] Reason for Visit * Reason Comments Unsuccessful Phone Call 3 Day 2 - Attemp t 3 - Unable to Contact Encounter Details Date Type Department Care Team (Late st Contact Info) Description 10/25/2023 ABDIEL IP Outreach [facility] Accountable Care Organization [address] [place] [id number] Nelly Roy LPN [address] [place] [address] [address] [place] [address] Social History Tobacco Use Types Packs/Day Years [...] often do you attend chur ch or church services? 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
--- OUTSIDE RECORDS SUMMARY | 2024-10-02 02:34 | XMS_ITS | Encounter Summary ---
Author Organization [facility] Address [address] [place] [address] Care Team Providers Care Sack Repairer Name Role Phone Lemuel Frost MD Primary Care Provider + Reason for Visit * Reason Onset Date Comments Lab Results 03/07/2023 Encounter Details Date Type Department Care Team (Late st Contact Info) Description 03/07/2023 Telephone [facility] Primary Care [address] [place] [address] Betsy Salinas MA Lab Results [...] often do you attend chur ch or druze services? More than 4 times per year 02/11/2023 Do you belong to any clubs o r organizations such as religion groups, unions, fraternal or athletic groups, or [...] place to sleep or slept in a retirement (including now)? No 02/11/2023 Sex and Gender Information Value Date Recorded Sex Assigned at Not on file Legal Sex Male 9:22 AM SUPERVISOR TELEPHONE INFORMATION Gender Identity Male 11/18/2021 1:25 PM SUPERVISOR TELEPHONE INFORMATION Sexual Orientation Straight 11/18/2021 1: 25 PM SUPERVISOR TELEPHONE INFORMATION documented as of this encounter Miscellaneous Notes * Telephone Encounter - Betsy Salinas MA - 03/08/2023 3:55 PM CDT Notified patient what Jorden advised. Patient verbally understands. Advised patient that Annetta (referrals) sent his referral for Endo to Urgent * Telephone Encounter - Muna Morley - 03/08/2023 12:59 PM CDT Patient returned call. * Telephone Encounter - Romero Meyers - 03/08/2023 12:48 PM CDT Call Back Caller???s Concern: patient called back into the office stating he had a missed call from MARIAH Meyer. Patient was connected to the office for assistance. Caller???s Call back #: [phone] Does message need to be routed? Yes-FYI Only * Telephone Encounter - Betsy Salinas MA - 03/07/2023 4:23 PM CDT Left message to return my call * Telephone Encounter - Betsy Salinas MA - 03/07/2023 10:34 AM CDT ----- Message from ALFREDITO Rivas sent at 03/07/2023 10:08 AM CDT ----- A1c did improve but given his vision I still want to try to expedite his endocrinology appointment ----- Message ----- From: Interface, Lab Results In Sent: 03/03/2023 4:29 PM CDT To: ALFREDITO Rivas documented in this encounter Plan of Treatment Not on file documented as of this encounter Visit Diagnoses Not on filedocumented in this encounter Care Teams Sack Repairer Relationship Specialty Start Date End Date Lemuel Frost MD [address] [address] PCP - General Family Medicine 10/09/21 03/09/23 documented as of this encounter
--- OUTSIDE RECORDS SUMMARY | 2024-10-02 02:34 | XMS_ITS | Encounter Summary ---
Author Organization [facility] Address [address] [place] [address] Care Team Providers Care Solderer Assembly Repair Name Role Phone Lemuel Frost MD Primary Care Provider + Reason for Visit * Reason Comments Eye Problem can he get massages? Encounter Details Date Type Department Care Team (Late st Contact Info) Description 03/03/2023 10:45 AM CDT Telemedicine [facility] Primary Care [address] [place] [address] Sena Moulton, ALFREDITO [address] [place] [address] Type 2 diabetes mellitus with hyperglycemia, without long-term current use of insulin (CMS/HCC) (HCC) (Primary Dx); Dyslipidemia; Hypertriglyceridemia; Vision changes Social History Tobacco Use Types Packs/Day Years [...] How often do you attend chur or mandaeism services? 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 Gender Identity Male 11/18/2021 1:25 PM STRIKE WARFARE/MISSILE SYSTEMS OFFICER Sexual Orientation Straight 11/18/2021 1: 25 PM STRIKE WARFARE/MISSILE SYSTEMS OFFICER documented as of this encounter Last Filed Vital Signs Vital Sign Reading Time Taken Comments Blood Pressure - - Pulse - - Temperature - - Respiratory Rate - - Oxygen Saturation - - Inhaled Oxygen Concentration - - Weight 72.1 kg (159 lb) 03/03/2023 10:38 AM CDT Height 172.7 cm (5' 8 ) 03/03/2023 10:38 AM CDT Body Mass Index 24.18 03/03/2023 10:38 AM CDT documented in this encounter Ordered Prescriptions Prescription Sig Dispense Quantity Refills Last Filled Start Date End Date insulin lispro (HumaLOG, ADMELOG) 100 unit/mL vial for injectionIndicatio ns:Diabetes Mellitus Inject 10 Units under the skin 3 (three) times a day with meals 30 mL 3 03/03/2023 3 insulin glargine (LANTUS, SEMGLEE) 100 unit/mL vial for injectionIndicatio ns:Type 2 diabetes mellitus with hyperglycemia, without long-term current use of insulin (HCC) Inject 75 Units under the skin nightly 60 mL 3 03/03/2023 3 documented in this encounter Progress Notes * Sena Moulton, ALFREDITO - 03/03/2023 10:45 AM CDT Images from the original note were not included. Subjective/Objective Patient ID: Chadwick Holcomb is a 42 y.o. male. Chief Complaint Eye Problem and can he get massages? Vitals: 03/03/23 1038 Weight: 72.1 kg (159 lb) Height: 172.7 cm (5' 8 ) Patient is in for routine follow-up for the following medical conditions labs and medications. Patient and I are having this encounter via telemedicine using zoom due to the current COVID-19 crisis. Patient has been informed and understands this may not be secure and agree's to continue the appointment. Patient has massage person and wanted to be ok'd Diabetes: patient was almost out lantus will need refill, seen eye doctor and getting new glasses, watching diet and most sugars are excellent, had a couple in 60's Past Medical History: Diagnosis Date Diabetes mellitus [...] Gastrointestinal: Negative for abdominal pain. Physical Exam Unable to obtain VS due to teleconference Physical Exam Constitutional: Appearance: Normal appearance. HENT: Head: Normocephalic. Eyes: Conjunctiva/sclera: Conjunctivae normal. Pulmonary: Effort: Pulmonary effort is normal. Skin: General: Skin is dry. Neurological: General: No focal deficit present. Mental Status: She is alert and oriented to person, place, and time. Psychiatric: Mood and Affect: Mood normal. Assessment/Plan Diagnoses and all orders for this visit: Type 2 diabetes mellitus with hyperglycemia, without long-term current use of insulin ([facility]) (Primary) Assessment & Plan: Patient is going to continue current medications, current labs were ordered, eye exam is up-to-date, foot care was discussed. Healthy diet and reference to ADA.com. Exercise as discussed, follow-up as scheduled routine. We did discuss proper monitoring of blood sugars Orders: - insulin glargine (LANTUS, SEMGLEE) 100 unit/mL vial for injection; Inject 75 Units under the skinnightly Dyslipidemia Assessment & Plan: Patient is to continue present medications, work on diet and exercise as discussed, we did discuss the medications and potential side effects and signs and symptoms that would warrant calling office.Follow up routine. Hypertriglyceridemia Assessment & Plan: Patient is to continue present medications, work on diet and exercise as discussed, we did discuss the medications and potential side effects and signs and symptoms that would warrant calling office.Follow up routine. Vision changes Assessment & Plan: Seen eye doctor and waiting on glasses, and can not see well and can not drive,I do not feel it is safe to return to work, trying to expedite endocrinology Other orders - insulin lispro (HumaLOG, ADMELOG) 100 unit/mL vial for injection; Inject 10 Units under the skin 3 (three) times a day with meals No orders of the defined types were placed in this encounter. Body mass index is 24.18 kg/m??. BMI Follow-up includes: nutrition counseling, exercise counseling, and education provided. *This note is dictated using [employer] voice recognition software, variances in spelling and vocabulary are possible and unintentional.* Nolberto Rivas was a telemedicine visit with Chadwick orourke which took place via real-time video connection with [employer]. During the visit, I was located in the office and the patient waslocated at home in the [facility]. The patient visit started at 10:50 and 11:15 and ended at 11:15. I have explained the option of participating in a telemedicine visit to the patient. After being given an opportunity to ask questions about and discuss this type of visit, the patient verbally consented to proceeding with the telemedicine visit. The patient understands that this service replaces an office visit and they may be billed and/or responsible for any applicable copayments. documented in this encounter Miscellaneous Notes * Assessment & Plan Note - Sena Moulton PA - 03/03/2023 11:09 AM CDT Associated Problem(s): Vision changes (Resolved 05/05/2023) Seen eye doctor and waiting on glasses, and can not see well and can not drive,I do not feel it is safe to return to work, trying to expedite endocrinology * Assessment & Plan Note - Sena Moulton PA - 03/03/2023 11:05 AM CDT Associated Problem(s): Hypertriglyceridemia (Deleted) Patient is to continue present medications, work on diet and exercise as discussed, we did discuss the medications and potential side effects and signs and symptoms that would warrant calling office.Follow up routine. * Assessment & Plan Note - Sena Moulton PA - 03/03/2023 11:05 AM CDT Associated Problem(s): Type 2 diabetes mellitus with hyperglycemia, with long- term current use of insulin (HCC) Patient is going to continue current medications, current labs were ordered, eye exam is up-to-date, foot care was discussed. Healthy diet and reference to ADA.com. Exercise as discussed, follow-up as scheduled routine. We did discuss proper monitoring of blood sugars * Assessment & Plan Note - Sena Moulton PA - 03/03/2023 11:05 AM CDT Associated Problem(s): Dyslipidemia (Deleted) Patient is to continue present medications, work on diet and exercise as discussed, we did discuss the medications and potential side effects and signs and symptoms that would warrant calling office.Follow up routine. * Assessment & Plan Note - Jessica Cid NP - 03/03/2023 10:45 AM CDT Associated Problem(s): Mixed hyperlipidemia >>ASSESSMENT AND PLAN FOR MIXED HYPERLIPIDEMIA WRITTEN ON 05/05/2023 4:16 PM BY JESSICA CID NP >>ASSESSMENT AND PLAN FOR HYPERTRIGLYCERIDEMIA WRITTEN ON 03/03/2023 11:05 AM BY SENA MOULTON PA Patient is to continue present medications, work on diet and exercise as discussed, we did discuss the medications and potential side effects and signs and symptoms that would warrant calling office.Follow up routine. >>ASSESSMENT AND PLAN FOR DYSLIPIDEMIA WRITTEN ON 03/03/2023 11:05 AM BY SENA MOULTON PA Patient is to continue present medications, work on diet and exercise as discussed, we did discuss the medications and potential side effects and signs and symptoms that would warrant calling office.Follow up routine. * Addendum Note - Sena Moulton PA - 03/03/2023 10:45 AM CDTAddended by: SENA MOULTON on: 03/03/2023 11:22 AM Modules accepted: Orders documented in this encounter Plan of Treatment Not on file documented as of this encounter Results * (ABNORMAL) Hemoglobin A1c (03/03/2023 3:08 PM CDT) [facility] Hgb A1C 10.4(H) 4.0 - 5.6 % ELLIOT HINES Comment:Testing performed by : [facility], [address] [place] [address]., [id number] Estimated Average Glucose 252 mg/dL ELLIOT HINES Comment: The ADA recommends reporting an estimated Average Glucose (eAG) with all Hemoglobin A1c results using the equation derived from a study of 507 normal and diabetic adults. ??Minority populations were underrepresented and children were not included. ?? (Diabetes Care 31:3869-0559, 2008). ??The eAG is not equivalent to a fasting glucose. Testing performed by: [facility], [address] [place] [address]., [id number] Blood 03/03/2023 3:08 PM CDT 03/03/2023 4:00 PM CDT Sena GLASER LAB BLOOD ORDERABLES Final Resu lt ELLIOT [address] [facility] Department [place] [address] documented in this encounter Visit Diagnoses Diagnosis Type 2 diabetes mellitus with hyperglycemia, without long-term current use of insulin (HCC)- Primary Dyslipidemia Other and unspecified hyperlipidemia Hypertriglyceridemia Pure hyperglyceridemia Vision changes documented in this encounter Discontinued Medications Medication Sig Discontinue Reason Start Date End Da te insulin glargine (LANTUS, SEMGLEE) 100 unit/mL vial for injection Inject 75 Units under the skin nightly Reorder 02/15/2023 03/03/2023 insulin lispro (HumaLOG, ADMELOG) 100 unit/mL vial for injectionIndications:Rea betes Mellitus Inject 10 Units under the skin 3 (three) times a day with meals Reorder 02/15/2023 03/03/2023 documented as of this encounter Care Teams Solderer Assembly Repair Relationship Specialty Start Date End Date Lemuel Frost MD [address] [place] [id number] PCP - General Family Medicine 10/09/21 03/09/23 documented as of this encounter
--- OUTSIDE RECORDS SUMMARY | 2024-10-02 02:34 | XMS_ITS | Encounter Summary ---
Author Organization [facility] Address [address] [place] [address] Care Team Providers Care Technical Instructor Name Role Phone Lemuel Frost MD Primary Care Provider + Reason for Visit * Reason Onset Date Comments Appointment Request 02/15/2023 Encounter Details Date Type Department Care Team ([facility] st Contact Info) Description 02/15/[address] [facility] Primary Care [address] [address] Lemuel Frost MD [address] [address] Appointment Request Social History Tobacco Use Types [...] often do you attend chur ch or jehovah's witness services? More than 4 times per year 02/11/2023 Do you belong to any clubs o r organizations such as muslim groups, unions, fraternal or athletic groups, or school groups? No 02/11/2023 How often do you attend meet ings of the clubs or organizations you belong to? Never 02/11/2023 Are you , , di vorced, , never , or living with a partner? Never 02/11/2023 AUDIT-C Answer Date Recorded Q1: How often do you have a drink containing alc ohol? Monthly or less 10/09/2021 Q2: How many drinks containi ng alcohol do you have on a typical day when you are drinking? 1 or 2 10/09/2021 Frequency of Binge Drinking Not on file 09/26 Overall Financial Resource Strain (CARDIA) Answe r [...] health care facility (including now)? No 02/11/2023 Sex and Gender Information Value Date Recorded Sex Assigned at Not on file Legal Sex Male 9:22 AM CLINICAL ACCOUNT LIAISON Gender Identity Male 11/18/2021 1:25 PM CLINICAL ACCOUNT LIAISON Sexual Orientation Straight 11/18/2021 1: 25 PM CLINICAL ACCOUNT LIAISON documented as of this encounter Ordered Prescriptions Prescription Sig Dispense Quantity Refills Last Filled Start Date End Date insulin syringe-needle U-100 1 mL 31 gauge x 5/16 syringe Use to inject 1-4 times daily as directed. 300 each 4 02/15/2023 documented in this encounter Miscellaneous Notes * Telephone Encounter - Rosa Clarke MA - 02/15/2023 5:08 PM CDT Spoke with patient, he wants to return to work after he sees Dr Frost on February 25. Letter sent Ale Díaz. He will have his hospital fu appt with ALFREDITO Moulton on February 23. Patient wants to know if he should restart Metformin. Per Dr Frost, he should restart it, but keep an eye on his blood sugar levels. If his sugar goes below 100, he should cut Lantus down to 40u and Humalog down to 5u. Patient voiced understanding. He states his insulin came as vials this time instead of pens, so he needs syringes sent to . * Telephone Encounter - Lemuel Frost MD - 02/15/2023 4:10 PM CDT Ok to return to work. If he is keeping his blood glucose below 200 and above 90 and feels comfortable with his DM then he can wait until I return to be seen but if not he should be seen by someone else. * Telephone Encounter - Rosa Clarke MA - 02/15/2023 3:04 PM CDT Patient wants to return to work on Tuesday. Ok for note or does he need to be seen first? He is ok with seeing another provider if needed. * Telephone Encounter - Susie Keys MA - 02/15/2023 1:10 PM CDT Appointment Request What visit type does the patient need? Visit Type: ABDIEL What is the reason for the visit? ABDIEL What is the reason we were unable to schedule the appointment? Current appointment availability didnot meet patient's need. No appts until 03.01.23 pt discharged today 02.15.23 If applicable, were all members of the patient's PCP care team offered (e.g., nurse practioner(s), physician workers compensation claims assistant(s)) ? N/A Caller's Callback #: [phone] Additional Comments: pt discharged from hospital 02.15.23. please call pt with appt. ABDIEL questions not asked. Does message need to be routed? Yes-Action Needed documented in this encounter Plan of Treatment Not on file documented as of this encounter Visit Diagnoses Not on filedocumented in this encounter Care Teams Technical Instructor Relationship Specialty Start Date End Date Lemuel Frost MD [address] [place] [id number] PCP - General Family Medicine 10/09/21 03/09/23 documented as of this encounter
--- OUTSIDE RECORDS SUMMARY | 2024-10-02 02:35 | XMS_ITS | Encounter Summary ---
Author Organization [facility] Address [address] [place] [address] [address] [place] [address] Care Team Providers Care Pulp Screen Operator Name Role Phone Lemuel Frost MD Primary Care Provider + Reason for Visit * Reason Onset Date Comments Covid-19 Home Monitoring 10/13/2021 Encounter Details Date Type Department Care Team (Late st Contact Info) Description 10/13/2021 Telephone [facility] Accountable Care Organization [address] [place] [address] Fadia Carmichael MA [address] [place] [address] [address] Covid-19 Home Monitoring Social History Tobacco Use Types Packs/Day Years Used Date Smoking Tobacco: Never AUDIT-C Answer Date Recorded Q1: How often do you have a drink containing alc ohol? Monthly or less 10/09/2021 Q2: How many drinks containi ng alcohol do you have on a typical day when you are drinking? 1 or 2 10/09/2021 Frequency of Binge Drinking Not on file 09/26 PHQ-2 Answer Date Recorded PHQ-2 Total Score (If total score is 3 or more points, staff should administer the PHQ-9) 0 10/09/2021 Sex and Gender Information Value Date Recorded Sex Assigned at Not on file Legal Sex Male 9:22 AM PORTER BAGGAGE Gender Identity Male 11/18/2021 1:25 PM PORTER BAGGAGE Sexual Orientation Straight 11/18/2021 1: 25 PM PORTER BAGGAGE documented as of this encounter Miscellaneous Notes * Telephone Encounter - Fadia Chavez MA - 10/13/2021 5:59 PM CST This patient is not currently a good candidate for our COVID-19 home monitoring program because Unable to Enroll at this time. By saving a note using this template, the patient will drop off our home monitoring candidate reports for two weeks. If we still consider them to have an active case of COVID-19 at that time, we willreevaluate them for home monitoring. ER BAGGAGE documented in this encounter Plan of Treatment Not on file documented as of this encounter Visit Diagnoses Not on filedocumented in this encounter Care Teams Pulp Screen Operator Relationship Specialty Start Date End Date Lemuel Frost MD [facility] [address] [address] PCP - General Family Medicine 10/09/21 03/09/23 documented as of this encounter
--- OUTSIDE RECORDS SUMMARY | 2024-10-02 02:35 | XMS_ITS | Encounter Summary ---
Author Organization [facility] Address [address] [facility] [address] [place] [id number] Care Team Providers Care Development Director Name Role Phone Lemuel Frost MD Primary Care Provider + Reason for Visit * Reason Comments Establish Care Positive for covid , SOB, body aches Cough Headache Encounter Details Date Type Department Care Team ([facility] Contact Info) Description 10/09/2021 11:00 AM STOCK PARTS FABRICATOR Office Visit [facility] Primary Care [address] [phone] Lemuel Frost MD [address] [place] [id number] Encounter to establish care (Primary Dx); COVID-19 virus infection; Hypertriglyceridemia; Other headache syndrome Social History Tobacco Use Types Packs/Day Years [...] on file Legal Sex Male 9:22 AM STOCK PARTS FABRICATOR Gender Identity Male 11/18/2021 1:25 PM STOCK PARTS FABRICATOR Sexual Orientation Straight 11/18/2021 1: 25 PM STOCK PARTS FABRICATOR documented as of this encounter Last Filed Vital Signs Vital Sign Reading Time Taken Comments Blood Pressure 126/94 10/09/2021 10:06 AM STOCK PARTS FABRICATOR Pulse 88 10/09/2021 10:06 AM STOCK PARTS FABRICATOR Temperature 36.2 ??C (97.1 ??F) 10/09/2021 10:[address] Respiratory Rate 20 10/09/2021 10:06 AM STOCK PARTS FABRICATOR Oxygen Saturation 96% 10/09/2021 10:06 AM STOCK PARTS FABRICATOR Inhaled Oxygen Concentration - - Weight 77.2 kg (170 lb 1.6 oz) 10/09/2021 10:06 AM STOCK PARTS FABRICATOR Height 172.7 cm (5' 8 ) 10/09/2021 10:06 AM STOCK PARTS FABRICATOR Body Mass Index 25.86 10/09/2021 10:06 AM STOCK PARTS FABRICATOR documented in this encounter Ordered Prescriptions Prescription Sig Dispense Quantity Refills Last Filled Start Date End Date benzonatate (TESSALON) 200 mg capsuleIndications :COVID-19 virus infection Take 1 capsule (200 mg total) by mouth 3 (three) times a day as needed for cough 42 capsule 10/09/2021 2 predniSONE (DELTASONE) 20 mg tabletIndications: Anti-inflammatory Take 3 tablets (60 mg) by mouth daily for 3 days, THEN 2 tablets (40 mg) daily for 3 days, THEN 1 tablet (20 mg) daily for 3 days, THEN 0.5 tablets (10 mg) daily for 2 days. 19 tablet 10/09/2021 2 albuterol HFA (ProAir HFA) 90 mcg/actuation inhalerIndications :COVID-19 virus infection Inhale 2 puffs every 4 (four) hours as needed for wheezing or shortness of breath 8.5 g 10/09/2021 2 documented in this encounter Progress Notes * Lemuel Frost MD - 10/09/2021 11:00 AM CST Images from the original note were not included. Subjective/Objective Patient ID: Chadwick Holcomb is a 41 y.o. male. Chief Complaint Establish Care (Positive for covid /11/17, SOB, body aches), Cough, and Headache Vitals: 10/09/21 1006 BP: 126/94 BP Location: Left arm Patient Position: Sitting Pulse: 88 Resp: 20 Temp: 36.2 ??C (97.1 ??F) TempSrc: Temporal SpO2: 96% Weight: 77.2 kg (170 lb 1.6 oz) Height: 172.7 cm (5' 8 ) HPI: Chadwick Holcomb is a 41 y.o. male here today for the following concerns: Acute Concerns: Establish care - Pt establishing care here today. COVID infection - body aches, fatigue, SOB, cough. Began 09/25/2021. Dx on 09/27/20. Chronic Medical Conditions: Anxiety - uncontrolled. No SI/HI. Has been considering seeing a counselor. Not interested in medication at this time. Has many concerns about an underlying health condition and wants to be sure thereisn't something else going on. Hypertriglyceridemia - trig on 03/11/21 of 1035. No known hx of prior issues. Has not been on medication for this. Snoring - snores most nights. Not interested in sleep study at this time. Chronic headaches - daily. Has been getting them for many years but sx have worsened. Over last fewmonths has also had some occasional dizziness/light headedness. Health Maintenance: - Colonoscopy (45-75): due age 45 - PSA (50-70): due age 50 - Tobacco history: Never used - Exercise: no Specialists Involved in Care: - None Health Maintenance Topic Date Due ??? Regular Well Visit/Exam Never done ??? Covid-19 Vaccine (2 - Booster for Andrei series) 04/11/2021 ??? Influenza Vaccine (1) Never done ??? DTaP/Tdap/Td Vaccine (7 - Tdap) 09/06/2021 ??? Depression Screening-PHQ 10/09/2022 Review of Systems Constitutional: Negative for chills and fever. HENT: Positive for congestion. Negative for rhinorrhea and sore throat. Respiratory: Positive for cough and shortness of breath. Cardiovascular: Negative for chest pain. Gastrointestinal: Negative for abdominal pain, constipation, diarrhea, nausea and vomiting. Musculoskeletal: Positive for myalgias. Neurological: Negative for headaches. Psychiatric/Behavioral: Negative for dysphoric mood. The patient is nervous/anxious. Physical Exam Vitals reviewed. Constitutional: Appearance: He is well-developed. HENT: Head: Normocephalic and atraumatic. Cardiovascular: Rate and Rhythm: Normal rate and regular rhythm. Heart sounds: Normal heart sounds. No murmur heard. No friction rub. No gallop. Pulmonary: Effort: Pulmonary effort is normal. No respiratory distress. Breath sounds: Normal breath sounds. No wheezing or rales. Abdominal: General: Abdomen is flat. Bowel sounds are normal. There is no distension. Tenderness: There is no abdominal tenderness. There is no guarding or rebound. Skin: General: Skin is warm and dry. Neurological: General: No focal deficit present. Mental Status: He is alert and oriented to person, place, and time. Psychiatric: Mood and Affect: Mood normal. Behavior: Behavior normal. Thought Content: Thought content normal. Judgment: Judgment normal. Assessment/Plan Diagnoses and all orders for this visit: Encounter to establish care (Primary) COVID-19 virus infection Assessment & Plan: - no longer infectious but having uncontrolled sequela - prednisone taper, albuterol, tessalon pearls for cough - note to return to work written. Orders: - albuterol HFA (ProAir HFA) 90 mcg/actuation inhaler; Inhale 2 puffs every 4 (four) hours as needed for wheezing or shortness of breath - predniSONE (DELTASONE) 20 mg tablet; Take 3 tablets (60 mg) by mouth daily for 3 days, THEN 2 tablets (40 mg) daily for 3 days, THEN 1 tablet (20 mg) daily for 3 days, THEN 0.5 tablets (10 mg) daily for 2 days. - benzonatate (TESSALON) 200 mg capsule; Take 1 capsule (200 mg total) by mouth 3 (three) times a day as needed for cough Hypertriglyceridemia Assessment & Plan: - uncontrolled, severe - will recheck fasting lab, if still high will start fenofibrate and atorvastatin. - discussed dietary measures to control triglycerides. Orders: - Lipid panel; Future - Comprehensive metabolic panel; Future Other headache syndrome Assessment & Plan: - uncontrolled, worsening - given worsening sx as well as new dizziness, will check head MRI and labs - f/u in 2 mo - consider prophylactic medication such as propranolol if no improvement at next visit. Orders: - MRI Brain WO Contrast; Future Orders Placed This Encounter Procedures ??? MRI Brain WO Contrast Standing Status: Future Standing Expiration Date: 10/09/2022 Order Specific Question: Clinical question to be answered: Answer: 41 yo M with chronic daily headaches, increasing and having increased dizziness. Please evaluate Order Specific Question: Is patient claustrophobic? Answer: No Order Specific Question: Is patient able to lie flat for at least one hour? Answer: Yes Order Specific Question: Where should this order be performed? Answer: [facility] [[id number]] ??? Lipid panel Standing Status: Future Standing Expiration Date: 10/09/2022 ??? Comprehensive metabolic panel Standing Status: Future Standing Expiration Date: 10/09/2022 *This note is dictated using [employer] voice recognition software, variances in spelling and vocabulary are possible and unintentional.* Lemuel Frost MD K PARTS FABRICATOR documented in this encounter Miscellaneous Notes * Assessment & Plan Note - Jessica Genao NP - 10/09/2021 11:00 AM STOCK PARTS FABRICATOR Associated Problem(s): Mixed hyperlipidemia >>ASSESSMENT AND PLAN FOR HYPERTRIGLYCERIDEMIA WRITTEN ON 10/09/2021 10:51 AM BY LEMUEL FROST MD - uncontrolled, severe - will recheck fasting lab, if still high will start fenofibrate and atorvastatin. - discussed dietary measures to control triglycerides. * Assessment & Plan Note - Lemuel Frost MD - 10/09/2021 10:51 AM STOCK PARTS FABRICATOR Associated Problem(s): COVID-19 virus infection (Resolved 11/18/2021) - no longer infectious but having uncontrolled sequela - prednisone taper, albuterol, tessalon pearls for cough - note to return to work written. K PARTS FABRICATOR * Assessment & Plan Note - Lemuel Frost MD - 10/09/2021 10:50 AM STOCK PARTS FABRICATOR Associated Problem(s): Hypertriglyceridemia (Deleted) - uncontrolled, severe - will recheck fasting lab, if still high will start fenofibrate and atorvastatin. - discussed dietary measures to control triglycerides. K PARTS FABRICATOR * Assessment & Plan Note - Lemuel Frost MD - 10/09/2021 10:49 AM STOCK PARTS FABRICATOR Associated Problem(s): Other headache syndrome - uncontrolled, worsening - given worsening sx as well as new dizziness, will check head MRI and labs - f/u in 2 mo - consider prophylactic medication such as propranolol if no improvement at next visit. K PARTS FABRICATOR documented in this encounter Plan of Treatment Not on file documented as of this encounter Results * Comprehensive metabolic panel (10/09/2021 11:08 AM STOCK PARTS FABRICATOR) [facility] Sodium 137 135 - 145 mmol/L [facility] Comment:Testing performed by : [address] [address] Potassium, pl 4.0 3.3 - 4.9 mmol/L [facility] Comment:Testing performed by : [address] [address] Chloride 99 97 - 110 mmol/L [facility] Comment:Testing performed by : [address] [address] CO2 24 22 - 32 mmol/L [facility] Comment:Testing performed by : [address] [address] Anion gap 14 2 - 15 mmol/L [facility] Comment:Testing performed by : [address] [address] BUN 11 8 - 25 mg/dL [facility] Comment:Testing performed by : [address] [address] Creatinine 1.00 0.80 - 1.30 mg/dL [facility] Comment:Testing performed by : [address] [address] Glucose 110 70 - 199 mg/dL [facility] Comment: Interpretive [...] classification and Diagnosis of Diabetes Diabetes Care 2017;40 (Suppl. 1):S11. Current interpretive data was last revised 2017. Testing performed by: [address] [address] Calcium 9.6 8.5 - 10.3 mg/dL [facility] Comment:Testing performed by : [address] [address] Bilirubin, total 1.2 0.1 - 1.2 mg/dL [facility] Comment:Testing performed by : [address] [address] Protein, pl 7.9 6.5 - 8.5 g/dL [facility] Comment:Testing performed by : [address] [address] Albumin 4.6 3.5 - 5.0 g/dL [facility] Comment:Testing performed by : [address] [address] Alk phos 74 40 - 130 Units/L [facility] Comment:Testing performed by : [address] [address] ALT 43 7 - 55 Units/L [facility] Comment:Testing performed by : [address] [address] AST 32 10 - 50 Units/L [facility] Comment:Testing performed by : [address] [address] Blood 10/09/2021 11:0 8 AM STOCK PARTS FABRICATOR 10/09/2021 5:07 PM STOCK PARTS FABRICATOR us Lemuel Frost MD LAB BLOOD ORDERABLES Fin al Result [facility] [address] [facility] Department [place] [address] * (ABNORMAL) Lipid panel (10/09/2021 11:08 AM STOCK PARTS FABRICATOR) Cholesterol 174 30 - 199 mg/dL [facility]ES Comment: [...] last revised on 2018. Testing performed by: [facility], [address] [place] [address]., [address] Triglycerides 246(H) <=149 mg/dL [facility]ES Comment: Interpretive Data [...] last revised on 2018. Testing performed by: [address] [address] HDL 27(L) >=40 mg/dL [facility] Comment: Interpretive Data Ages [...] last revised on 2018. Testing performed by: [address] [address] LDL, calculated 98 <=129 mg/dL [facility] Comment: Interpretive Data Ages [...] last revised on 2018. Testing performed by: [address] [address] Non-HDL Cholesterol 147 mg/dL [facility] Comment: Interpretive Data Ages < [...] last revised on 2018. Testing performed by: [facility], [address] [place] [address]., [address] Chol/HDL ratio 6 [facility] Comment:Testing performed by : [facility], [address] [place] [address]., [address] Blood 10/09/2021 11:0 8 AM STOCK PARTS FABRICATOR 10/09/2021 5:07 PM STOCK PARTS FABRICATOR us Lemuel Frost MD LAB BLOOD ORDERABLES Fin al Result [facility] [address] [facility] Department [place] [address] documented in this encounter Visit Diagnoses Diagnosis Encounter to establish care- Primary COVID-19 virus infection Hypertriglyceridemia Pure hyperglyceridemia Other headache syndrome documented in this encounter Care Teams Development Director Relationship Specialty Start Date End Date Lemuel Frost MD [address] [place] [phone] PCP - General Family Medicine 10/09/21 03/09/23 documented as of this encounter
--- OUTSIDE RECORDS SUMMARY | 2024-10-02 02:35 | XMS_ITS | Encounter Summary ---
Author Organization [facility] Healthcare Address [address] [place] [address] Care Team Providers Care Compensation Manager Name Role Phone Lemuel Frost MD Primary Care Provider + Reason for Visit * Auth/Cert (Routine) Specialty Diagnoses / Procedures Referred By Contac t Referred To Contact Diagnoses Diabetic ketoacidosis without coma associated with other specified diabetes mellitus (HCC) Acute pancreatitis, unspecified complication status, unspecified pancreatitis type Procedures NA Referral ID Status Reason Start Date Expiration Date Visits Re quested Visits Authorized [id number] 1 1 Encounter Details Date Type Department Care Team (Late st Contact Info) Description 02/10/2023 11:25 AM CDT Lab [facility] [address] [place] [address] Abdominal pain Social History Tobacco Use Types Packs/Day Years [...] often do you attend chur ch or rastafari services? More than 4 times per year 02/11/2023 Do you belong to any clubs o r organizations such as presybeterian groups, unions, fraternal or athletic groups, or [...] on file Legal Sex Male 9:22 AM WARE CARRIER Gender Identity Male 11/18/2021 1:25 PM WARE CARRIER Sexual Orientation Straight 11/18/2021 1: 25 PM WARE CARRIER documented as of this encounter Plan of Treatment Not on file documented as of this encounter Procedures Procedure Name Priority Date/Time Associated Diagnosis Comments EGFR Routine 02/10/2023 11:31 AM CDT Abdominal pain DIFFERENTIAL AUTO STAT 02/10/2023 11: 31 AM CDT Abdominal pain CBC WITH AUTO DIFFERENTIAL STAT 02/10/2023 11:31 AM CDT Abdominal pain LIPASE STAT 02/10/2023 11:31 AM CDT Abdominal pain COMPREHENSIVE METABOLIC PANEL Routine 02/10/2023 11:31 AM CDT Abdominal pain documented in this encounter Results * eGFR (02/10/2023 11:31 AM CDT) eGFR 95 mL/min/1. 73 m2 [facility]INES [...] last reviewed 2021. Testing performed by: [facility] [address] [address] Blood 02/10/2023 11:3 1 AM CDT 02/10/2023 12:02 PM CDT us Lemuel Frost MD LAB BLOOD ORDERABLES Fin al Result [facility] [address] [facility] Department [place] [address] * (ABNORMAL) Differential, auto (02/10/2023 11:31 AM CDT) Neutrophil abs 29.4(H) 1.7 - 6.5 K/cumm [facility] Comment:Testing performed by : [address] [address] Imm gran abs 1.1(H) 0.0 - 0.1 K/cumm [facility] Comment:Testing performed by : [address] [address] Lymphocyte abs 2.5 0.8 - 3.3 K/cumm [facility] Comment:Testing performed by : [address] [address] Monocyte abs 5.1(H) 0.2 - 0.8 K/cumm [facility] Comment:Testing performed by : [address] [address] Eosinophil abs 0.1 0.0 - 0.5 K/cumm [facility] Comment:Testing performed by : [address] [address] Basophil abs 0.0 0.0 - 0.1 K/cumm [facility] Comment:Testing performed by : [address] [address] Neutrophil pct 76.9 % [facility] Comment: Interpretive Data Percent cell count reference ranges are not reported, since discordance with absolute values may lead to misinterpretation of CBC data. Current Interpretive Data was last revised on 2018. Testing performed by: [address] [address] Imm gran pct 2.8 % [facility] Comment: Interpretive Data Percent cell count reference ranges are not reported, since discordance with absolute values may lead to misinterpretation of CBC data. Current Interpretive Data was last revised on 2018. Testing performed by: [address] [address] Lymphocyte pct 6.5 % [facility] Comment: Interpretive Data Percent cell count reference ranges are not reported, since discordance with absolute values may lead to misinterpretation of CBC data. Current Interpretive Data was last revised on 2018. Testing performed by: [address] [address] Monocyte pct 13.4 % [facility] Comment: Interpretive Data Percent cell count reference ranges are not reported, since discordance with absolute values may lead to misinterpretation of CBC data. Current Interpretive Data was last revised on 2018. Testing performed by: [address] [address] Eosinophil pct 0.3 % [facility] Comment: Interpretive Data Percent cell count reference ranges are not reported, since discordance with absolute values may lead to misinterpretation of CBC data. Current Interpretive Data was last revised on 2018. Testing performed by: [address] [address] Basophil pct 0.1 % [facility] Comment: Interpretive Data Percent cell count reference ranges are not reported, since discordance with absolute values may lead to misinterpretation of CBC data. Current Interpretive Data was last revised on 2018. Testing performed by: [address] [address] Blood 02/10/2023 11:3 1 AM CDT 02/10/2023 12:02 PM CDT us Lemuel Frost MD LAB BLOOD ORDERABLES Fin al Result [facility] [address] [facility] Department [place] [address] * (ABNORMAL) Comprehensive metabolic panel (02/10/2023 11:31 AM CDT) [facility] Sodium 129(L) 135 - 145 mmol/L [facility] Comment: specimen clarified using high speed centrifugation. unable to use original specimen due to increaed viscosity Testing performed by: [address] [address] Potassium, pl 4.8 3.3 - 4.9 mmol/L [facility] Comment: specimen clarified using high speed centrifucation. unable to test original specimen due to increased viscosity Testing performed by: [address] [address] Chloride 94(L) 97 - 110 mmol/L [facility] Comment: specimen clarified using high speed centrifugation. unable to test original specimen due to increased viscosity Testing performed by: [address] [address] CO2 9(L) 22 - 32 mmol/L [facility] Comment: specimen clarified using high speed centrifugation. unable to test originals specimen due to increased viscosity Testing performed by: [address] [address] Anion gap 26(H) 2 - 15 mmol/L [facility] Comment: specimen clarified by high speed centrifugation prior to testing. ??Unable to test original specimen due to increased viscosity. Testing performed by: [address] [address] BUN 12 8 - 25 mg/dL [facility] Comment: specimen clarified by high speed centrifugation. ??Unable to test original specimen due to increased viscosity Testing performed by: [address] [address] Creatinine 1.00 0.80 - 1.30 mg/dL [facility] Comment: specimen clarified using high speed centrifugation. unable to test original specimen due to increased viscosity Testing performed by: [address] [address] Glucose 325(H) 70 - 199 mg/dL [facility] Comment: Interpretive Data Fasting glucose >/= 126 [...] was last revised 2022. Testing performed by: [address] [address] Calcium 9.7 8.5 - 10.3 mg/dL [facility] Comment: specimen clarified by high speed centrifugation. unable to test original specimen due to increased viscosity Testing performed by: [address] [address] Bilirubin, total 0.3 0.1 - 1.2 mg/dL [facility] Comment: specimen clarified by high speed centrifugation. unable to test original specimen due to increased viscosity Testing performed by: [address] [address] Protein, pl 8.9(H) 6.5 - 8.5 g/dL [facility] Comment: specimen clarified using high speed centrifuge. unable to test original due to increased viscosity Testing performed by: [address] [address] Albumin 4.3 3.5 - 5.0 g/dL [facility] Comment: specimen clarified by high speed centrifugation. unable to test original specimen due to increased viscosity Testing performed by: [address] [address] Alk phos 126 40 - 130 Units/L [facility] Comment: specimen clarified by high speed centrifugation. unable to test original specimen due to increased viscosity Testing performed by: [address] [address] ALT 18 7 - 55 Units/L [facility] Comment: specimen clarified by high speed centrifugation. ??unable to test original specimen due to increased viscosity Testing performed by: [address] [address] AST 20 10 - 50 Units/L [facility] Comment: specimen clarified by high speed centrifugation. ??unable to test original specimen due to increased viscosity Testing performed by: [address] [address] Blood 02/10/2023 11:3 1 AM CDT 02/10/2023 12:02 PM CDT us Lemuel Frost MD LAB BLOOD ORDERABLES Adam holly Result - Final [facility] [address] [facility] Department [place] [address] * (ABNORMAL) CBC with auto differential (02/10/2023 11:31 AM CDT) WBC 38.2(H) 3.8 - 9.9 K/cumm [facility]ES Comment:Testing performed by : [address] [address] Hgb 20.6(C) 13.0 - 17.5 g/dL [facility] Comment: Critical result called to and read back by W[facility] on 02 10 2023 at 1432 to Fatuma Gamez. Severly lipemic specimen. Calculated using clairified plasma. Testing performed by: [address] [address] Hct 44.3 38.9 - 50.3 % [facility] Comment:Testing performed by : [address] [address] Plt 454(H) 150 - 400 K/cumm [facility] Comment:Testing performed by : [address] [address] MPV 9.3 9.1 - 12.3 fL [facility] Comment:Testing performed by : [address] [address] RBC 5.14 4.30 - 5.80 M/cumm [facility] Comment:Testing performed by : [address] [address] MCV 86.2 81.3 - 96.4 fL [facility] Comment:Testing performed by : [address] [address] MCH 40.1(H) 27.1 - 33.3 pg [facility] Comment: Severly lipemic specimen. Calculated using clairified plasma. Testing performed by: [address] [place] [address] MCHC 46.5(H) 32.3 - 35.7 g/dL [facility] Comment: Severly lipemic specimen. Calculated using clairified plasma. Testing performed by: [address] [address] RDW CV 13.1 11.1 - 14.9 % [facility]ES Comment:Testing performed by : [address] [address] RDW SD 40.7 35.7 - 48.1 fL [facility] Comment:Testing performed by : [address] [address] NRBC abs 0.02(H) 0.00 - 0.01 K/cumm [facility]ES Comment:Testing performed by : [address] [address] Blood 02/10/2023 11:3 1 AM CDT 02/10/2023 12:02 PM CDT Lemuel Frost MD LAB BLOOD ORDERABLES Adam holly Result - Final Performing Organization Address City/[facility]/ZIP Co de Phone Number [facility] [facility] [place] [address] * (ABNORMAL) Lipase (02/10/2023 11:31 AM CDT) Lipase 2,481(H) 10 - 99 Units/L [facility] Comment: specimen clarified using high speed centrifugation. unable to test original specimen due to increased viscosity Testing performed by: [address] [address] Blood 02/10/2023 11:3 1 AM CDT 02/10/2023 12:02 PM CDT Lemuel Frost MD LAB BLOOD ORDERABLES Adam holly Result - Final Performing Organization Address City/[facility]/ZIP Co de Phone Number [facility] [address] [facility] [place] [address] documented in this encounter Visit Diagnoses Diagnosis Abdominal pain Abdominal pain, unspecified site documented in this encounter Care Teams Compensation Manager Relationship Specialty Start Date End Date Lemuel Frost MD [address] [place] [id number] PCP - General Family Medicine 10/09/21 03/09/23 documented as of this encounter
--- OUTSIDE RECORDS SUMMARY | 2024-10-02 02:35 | XMS_ITS | Encounter Summary ---
Author Organization [facility] Healthcare Address [address] [place] [address] Care Team Providers Care Security Door Installer Name Role Phone Lemuel Frost MD Primary Care Provider + Encounter Details Date Type Department Care Team (Late st Contact Info) Description 02/08/2023 9:45 AM CDT Lab [facility] Building [address] [address] Annual physical exam; Hypertriglyceridemia; Type 2 diabetes mellitus with hyperglycemia, [...] often do you attend chur ch or yarsanism services? More than 4 times per year [...] on file Legal Sex Male 9:22 AM DEICER INSPECTOR ELECTRIC Gender Identity Male 11/18/2021 1:25 PM DEICER INSPECTOR ELECTRIC Sexual Orientation Straight 11/18/2021 1: 25 PM DEICER INSPECTOR ELECTRIC documented as of this encounter Miscellaneous Notes * Result Encounter Note - Lemuel Frost MD - 02/08/2023 1:52 PM CDT Your cholesterol is very high. We will discuss adding a cholesterol medication at your next visit. Your kidney function shows early signs of damage due to diabetes - this likely will improve with control of your diabetes. Your c- peptide level is normal - this is suggestive of type 2 diabetes. We are still waiting for the GAD65 lab test to make a final determination regarding you having type 1 or type 2 diabetes. Continue with the plan for insulin and starting metformin. documented in this encounter Plan of Treatment Not on file documented as of this encounter Procedures Procedure Name Priority Date/Time Associated Diagnosis Comments EGFR Routine 02/08/2023 9:50 AM CDT Type 2 diabetes mellitus with hyperglycemia, without long-term current use of insulin ([facility]) ([facility]) ALBUMIN CREATININE RATIO, URINE Routine 02/08/2023 9:50 AM CDT Type 2 diabetes mellitus with hyperglycemia, without long-term current use of insulin ([facility]) ([facility]) GLUTAMIC ACID DECARBOXYLASE Routine 02/08/2023 9:50 AM CDT Type 2 diabetes mellitus with hyperglycemia, without long-term current use of insulin (CMS/HCC) ([facility]) C-PEPTIDE Routine 02/08/2023 9:50 AM CDT Type 2 diabetes mellitus with hyperglycemia, without long-term current use of insulin (CMS/[facility]) ([facility]) VITAMIN B12 Routine 02/08/2023 9:50 AM CDT Type 2 diabetes mellitus with hyperglycemia, without long-term current use of insulin (CMS/HCC) ([facility]) LIPID PANEL Routine 02/08/2023 9:50 AM CDT Annual physical exam Hypertriglyceridem ia Type 2 diabetes mellitus with hyperglycemia, without long-term current use of insulin (CMS/HCC) ([facility]) BASIC METABOLIC PANEL Routine 02/08/2023 9:50 AM CDT Type 2 diabetes mellitus with hyperglycemia, without long-term current use of insulin (CMS/HCC) ([facility]) documented in this encounter Results * eGFR (02/08/2023 9:50 AM CDT) eGFR 117 mL/min/1. 73 m2 ELLIOT HINES Comment: Interpretive [...] was last reviewed 2021. Testing performed by: [facility], [address] [place] [address], [place]., [address] Blood 02/08/2023 9:50 AM CDT 02/08/2023 11:40 AM CDT us Lemuel Frost MD LAB BLOOD ORDERABLES Fin al Result ELLIOT HINES [address] [facility] Department [place] [address] * Glutamic acid decarboxylase (02/08/2023 9:50 AM CDT) GAD65 ab ser TNP ELLIOT HINES Comment: GAD65 Ab Assay, S was cancelled on 02/10/2023 at 16:26; Specimen was lipemic. Test Performed by: [address] [address] Scrap Drop Engineer: Rajan Blake M.D. Ph.D.; IA# [id number] Testing performed by: [address] [address] Blood 02/08/2023 9:50 AM CDT 02/08/2023 1:24 PM CDT Lemuel Frost MD LAB BLOOD ORDERABLES Fin al Result Performing Organization Address [facility]/ZIP Co de Phone Number [address] [place] [address] * C-peptide (02/08/2023 9:50 AM CDT) [facility] C-peptide 1.4 1.1 - 4.4 ng/mL ELLIOT Blood 02/08/2023 9:50 AM CDT 02/08/2023 12:52 PM CDT Lemuel Frost MD LAB BLOOD ORDERABLES Fin al Result Performing Organization Address [facility] de Phone Number [address] [address] * (ABNORMAL) Basic metabolic panel (02/08/2023 9:50 AM CDT) [facility] Sodium 135 135 - 145 mmol/L ELLIOT Comment:Testing performed by : [address] [address] Potassium, pl 4.7 3.3 - 4.9 mmol/L ELLIOT Comment:Testing performed by : [address] [address] Chloride 94(L) 97 - 110 mmol/L ELLIOT Comment:Testing performed by : [address] [address] CO2 16(L) 22 - 32 mmol/L ELLIOT Comment:Testing performed by : [address] [address] Anion gap 25(H) 2 - 15 mmol/L ELLIOT Comment:Testing performed by : [address] [address] BUN 15 8 - 25 mg/dL ELLIOT Comment:Testing performed by : [address] [address] Creatinine 0.70(L) 0.80 - 1.30 mg/dL ELLIOT Comment:Testing performed by : [address] [address] Glucose 366(H) 70 - 199 mg/dL ELLIOT Comment: Interpretive [...] was last revised 2022. Testing performed by: [address] [address] Calcium 9.7 8.5 - 10.3 mg/dL ELLIOT Comment:Testing performed by : [address] [address] Blood 02/08/2023 9:50 AM CDT 02/08/2023 11:40 AM CDT us Lemuel Frost MD LAB BLOOD ORDERABLES Fin al Result ELLIOT HINES [address] [facility] [place] [address] * Vitamin B12 (02/08/2023 9:50 AM CDT) [facility] Vitamin B12 813 230 - 1,250 pg/mL ELLIOT HINES Comment: REDRAW: HEMOLYZED SPECIMEN Lipemic specimen Testing performed by: [address] [address] Blood 02/08/2023 9:50 AM CDT 02/08/2023 11:40 AM CDT Lemuel Frost MD LAB BLOOD ORDERABLES Fin al Result Performing Organization Address [facility] Co de Phone Number ELLIOT [address] [facility] [place] [address] * (ABNORMAL) Albumin Creatinine Ratio, Urine (02/08/2023 9:50 AM CDT) Albumin Ur 229.8 mg/L ELLIOT Comment: Interpretive Data No reference range established. Current interpretive data was last revised 2019. Testing performed by: [address] [address] Creatinine Ur 50.8 mg/dL ELLIOT Comment: Interpretive Data No reference range established. Current interpretive data was last revised 2019. Testing performed by: [facility], [address] [place] [address]., [address] Albumin Creatinine Ratio, Ur 452(H) 1 - 29 mg/g ELLIOT Comment:Testing performed by : [address] [address] Urine 02/08/2023 9:50 AM CDT 02/08/2023 11:43 AM CDT Lemuel Frost MD LAB URINE ORDERABLES Fin al Result Performing Organization Address [facility] Co de Phone Number [facility] [address] [facility] [place] [address] * (ABNORMAL) Lipid panel (02/08/2023 9:50 AM CDT) Cholesterol 497(H) 30 - 199 mg/dL ELLIOT Comment: Interpretive [...] last revised on 2018. Testing performed by: [address] [address] Triglycerides 2,329(H) <=149 mg/dL ELLIOT HINES Comment: Interpretive Data [...] last revised on 2018. Testing performed by: [address] [address] HDL 11(L) >=40 mg/dL ELLIOT HINES Comment: Interpretive Data [...] last revised on 2018. Testing performed by: [facility], [address] [place] [address]., [address] LDL, calculated See Comment <=129 ELLIOT Comment: Unable to calculate due to elevated triglyceride level. Interpretive Data Ages < or = 19 [...] last revised on 2018. Testing performed by: [facility], [address] [place] [address]., [address] Non-HDL Cholesterol See Comment ELLIOT HINES Comment: Interpretive Data Ages < [...] last revised on 2018. Testing performed by: [facility], [address] [place] [address]., [address] Chol/HDL ratio See Comment ELLIOT HINES Comment:Testing performed by : [facility], [address] [place] [address]., [address] Blood 02/08/2023 9:50 AM CDT 02/08/2023 11:40 AM CDT us Lemuel Frost MD LAB BLOOD ORDERABLES Fin al Result ELLIOT HINES [address] [facility] Department of Laboratories [place], [place] [phone] documented in this encounter Visit Diagnoses Diagnosis Annual physical exam Routine general medical examination at a [facility] care facility Hypertriglyceridemia Pure hyperglyceridemia Type 2 diabetes mellitus with hyperglycemia, without long-term current use of insulin (HCC) documented in this encounter Care Teams Security Door Installer Relationship Specialty Start Date End Date Lemuel Frost MD [address] [place] [address] PCP - General Family Medicine 10/09/21 03/09/23 documented as of this encounter
--- OUTSIDE RECORDS SUMMARY | 2024-10-02 02:35 | XMS_ITS | Encounter Summary ---
Author Organization [facility] Address [address] [facility] [address] [place] [address] Care Team Providers Care Electrical Sign Wirer Helper Name Role Phone Lemuel Frost MD Primary Care Provider + Reason for Visit * Reason Comments Follow-up MRI Dizziness Encounter Details Date Type Department Care Team ([facility] st Contact Info) Description 11/18/2021 1:45 PM PROVIDER RELATIONS SPECIALIST Office Visit [facility] Primary Care [address] [place] [phone] Lemuel Frost MD [address] [place] [phone] Palpitations (Primary Dx); Hypertriglyceridemia; Other headache syndrome; Acute non-recurrent maxillary sinusitis; DELORIS (generalized anxiety disorder); Vasovagal syncope; Elevated systolic blood pressure reading without diagnosis [...] on file Legal Sex Male 9:22 AM PROVIDER RELATIONS SPECIALIST Gender Identity Male 11/18/2021 1:25 PM PROVIDER RELATIONS SPECIALIST Sexual Orientation Straight 11/18/2021 1: 25 PM PROVIDER RELATIONS SPECIALIST documented as of this encounter Last Filed Vital Signs Vital Sign Reading Time Taken Comments Blood Pressure 138/92 11/18/2021 1:44 PM PROVIDER RELATIONS SPECIALIST Pulse 84 11/18/2021 1:44 PM PROVIDER RELATIONS SPECIALIST Temperature 36.3 ??C (97.3 ??F) 11/18/2021 1:44 PM CS T Respiratory Rate 18 11/18/2021 1:44 PM PROVIDER RELATIONS SPECIALIST Oxygen Saturation 98% 11/18/2021 1:44 PM PROVIDER RELATIONS SPECIALIST Inhaled Oxygen Concentration - - Weight 78.7 kg (173 lb 6.4 oz) 11/18/2021 1:44 P M PROVIDER RELATIONS SPECIALIST Height 172.7 cm (5' 8 ) 11/18/2021 1:44 PM PROVIDER RELATIONS SPECIALIST Body Mass Index 26.37 11/18/2021 1:44 PM PROVIDER RELATIONS SPECIALIST documented in this encounter Progress Notes * Lemuel Frost MD - 11/18/2021 1:45 PM CST Images from the original note were not included. Subjective/Objective Patient ID: Chadwick Holcomb is a 41 y.o. male. Chief Complaint Follow-up (MRI) and Dizziness Vitals: 11/18/21 1344 BP: 138/92 BP Location: Left arm Patient Position: Sitting Pulse: 84 Resp: 18 Temp: 36.3 ??C (97.3 ??F) TempSrc: Temporal SpO2: 98% Weight: 78.7 kg (173 lb 6.4 oz) Height: 172.7 cm (5' 8 ) HPI: Chadwick Holcomb is a 41 y.o. male here today for the following concerns: - patient is here for follow-up for his MRI. He complains of chronic headaches occurring daily. Hisheadaches have worsened over the last few months. He has had headache for many years but a significantly increased about 3 4 months ago. He also complains of several episodes of blacking out. On 1 episode his girlfriend found him lying face down on the floor approximately 1-2 minutes after he left h er. He was aware when she found him. There were no signs of seizure. He has no memory of the actualevent of passing out but remembers before and after it occurred. He also complains of dizziness occurring more frequently for the last several months. His brain MRI was normal except for chronic sinusitis. - his headaches are primarily in the left occipital region. They occur daily. He takes ibuprofen for them. More recently he developed headaches in the frontal region but continues to have daily headaches in the occipital region. - he denies any chest pain or shortness of breath. He does note some fluttering in his heart on occasion. He has never had a cardiac evaluation. - he does have increased anxiety. He recently quit his job in anticipation of taking another job which fell through. He has been out of work for several months now. This has increased his anxiety. Heis very concerned about health problems and perseverates on possible issues that could cause him todie. He denies any depression. He denies any suicidal or homicidal ideation. Chronic Medical Conditions: Anxiety - uncontrolled. No SI/HI. Has been considering seeing a counselor. Not interested in medication at this time. Has many concerns about an underlying health condition and wants to be sure thereisn't something else going on. ?? Hypertriglyceridemia - trig on 03/11/21 of 1035. ?? Snoring - snores most nights. Not interested in sleep study at this time. ?? Chronic headaches - daily. Has been getting them for many years but sx have worsened. Over last fewmonths has also had some occasional dizziness/light headedness. - MRI head showed sinusitis but otherwise normal. ?? Health Maintenance: - Colonoscopy (45-75): due age 45 - PSA (50-70): due age 50 - Tobacco history: Never used - Exercise: no ?? Specialists Involved in Care: - None Health Maintenance Topic Date Due ??? Regular Well Visit/Exam Never done ??? Covid-19 Vaccine (2 - Booster for Andrei series) 04/11/2021 ??? Influenza Vaccine (1) Never done ??? DTaP/Tdap/Td Vaccine (7 - Tdap) 09/06/2021 ??? Depression Screening-PHQ 10/09/2022 ? ? Pneumococcal vaccine <65 Aged Out Review of Systems Constitutional: Negative for chills and fever. HENT: Negative for congestion, rhinorrhea and sore throat. Eyes: Negative for visual disturbance. Respiratory: Negative for cough and shortness of breath. Cardiovascular: Positive for palpitations. Negative for chest pain. Gastrointestinal: Negative for abdominal pain, constipation, diarrhea, nausea and vomiting. Neurological: Positive for dizziness, syncope and headaches. Negative for seizures. Psychiatric/Behavioral: Negative for dysphoric mood, self-injury and suicidal ideas. The patient isnot nervous/anxious. Physical Exam Vitals reviewed. Constitutional: Appearance: He is well-developed. HENT: Head: Normocephalic and atraumatic. Right Ear: Tympanic membrane and external ear normal. Left Ear: Tympanic membrane and external ear normal. Cardiovascular: Rate and Rhythm: Normal rate and regular rhythm. Heart sounds: Normal heart sounds. No murmur heard. No friction rub. No gallop. Pulmonary: Effort: Pulmonary effort is normal. No respiratory distress. Breath sounds: Normal breath sounds. No wheezing or rales. Skin: General: Skin is warm and dry. Neurological: General: No focal deficit present. Mental Status: He is alert and oriented to person, place, and time. Cranial Nerves: Cranial nerves are intact. No cranial nerve deficit or facial asymmetry. Coordination: Coordination is intact. Psychiatric: Mood and Affect: Mood normal. Behavior: Behavior normal. Thought Content: Thought content normal. Judgment: Judgment normal. Assessment/Plan Diagnoses and all orders for this visit: Palpitations (Primary) Assessment & Plan: - EKG today with sinus rhythm, rate 82, t wave inversion in V1, no EKG for comparison - ref to cardiology for possible event monitor and possible stress test. Orders: - Ambulatory referral to Cardiology; Future - ECG 12 lead Hypertriglyceridemia Assessment & Plan: - continue dietary changes - discussed healthy diet Other headache syndrome Assessment & Plan: - tension headaches vs. Other etiology - normal MRI of brain - add magnesium and vit B2 - f/u in 2-3 mo if sx continue and will add topamax Acute non-recurrent maxillary sinusitis Assessment & Plan: - augmentin, flonase, neti pot - f/u prn DELORIS (generalized anxiety disorder) Assessment & Plan: - uncontrolled - pt not interested in meds at this time - f/u if sx worsen and will start on SSRI Vasovagal syncope Assessment & Plan: - unclear etiology since events happened several weeks ago - based on history suspect vasovagal vs. Cardiac related - events only seem to have occured while standing. - will refer to cardiology for event monitor and possible stress test - discusses need to avoid driving until we have a better assessment of the cause Elevated systolic blood pressure reading without diagnosis of hypertension Assessment & Plan: - BP slightly high today - monitor for now, if high at next apt will start medication Orders Placed This Encounter Procedures ??? Ambulatory referral to Cardiology 41 yo M with palpitations and episodes of blacking out. Please evaluate and treat. Standing Status: Future Standing Expiration Date: 05/18/2022 Referral Priority: Routine Referral Type: Consultation Referral Reason: Specialty Services Required Referral Location: [facility] Requested Specialty: Cardiology Number of Visits Requested: 1 ??? ECG 12 lead Order Specific Question: Please select the performing location: Answer: [facility] Medical [facility] [[id number]] Order Specific Question: Performing department: Answer: [facility] [[id number]] Order Specific Question: Reason / Symptom Answer: Palpitations My total encounter time on 11/18/2021 was 38 minutes which was spent in the activities documented inthe note. This includes time spent prior to the visit and after the visit in direct care of the patient. This time does not include time spent in any separately reportable services. *This note is dictated using [employer] voice recognition software, variances in spelling and vocabulary are possible and unintentional.* Lemuel Frost MD IDER RELATIONS SPECIALIST documented in this encounter Miscellaneous Notes * Assessment & Plan Note - Lemuel Frost MD - 11/18/2021 3:51 PM PROVIDER RELATIONS SPECIALIST Associated Problem(s): Acute non-recurrent maxillary sinusitis - augmentin, flonase, neti pot - f/u prn IDER RELATIONS SPECIALIST * Assessment & Plan Note - Lemuel Frost MD - 11/18/2021 3:51 PM PROVIDER RELATIONS SPECIALIST Associated Problem(s): Elevated systolic blood pressure reading without diagnosis of hypertension - BP slightly high today - monitor for now, if high at next apt will start medication IDER RELATIONS SPECIALIST * Assessment & Plan Note - Lemuel Frost MD - 11/18/2021 3:50 PM PROVIDER RELATIONS SPECIALIST Associated Problem(s): DELORIS (generalized anxiety disorder) (Resolved 02/08/2023) - uncontrolled - pt not interested in meds at this time - f/u if sx worsen and will start on SSRI IDER RELATIONS SPECIALIST IDER RELATIONS SPECIALIST * Assessment & Plan Note - Lemuel Frost MD - 11/18/2021 3:50 PM PROVIDER RELATIONS SPECIALIST Associated Problem(s): Hypertriglyceridemia (Deleted) - continue dietary changes - discussed healthy diet IDER RELATIONS SPECIALIST * Assessment & Plan Note - Lemuel Frost MD - 11/18/2021 3:49 PM PROVIDER RELATIONS SPECIALIST Associated Problem(s): Other headache syndrome - tension headaches vs. Other etiology - normal MRI of brain - add magnesium and vit B2 - f/u in 2-3 mo if sx continue and will add topamax IDER RELATIONS SPECIALIST * Assessment & Plan Note - Lemuel Frost MD - 11/18/2021 3:32 PM PROVIDER RELATIONS SPECIALIST Associated Problem(s): Palpitations - EKG today with sinus rhythm, rate 82, t wave inversion in V1, no EKG for comparison - ref to cardiology for possible event monitor and possible stress test. IDER RELATIONS SPECIALIST IDER RELATIONS SPECIALIST * Assessment & Plan Note - Lemuel Frost MD - 11/18/2021 3:30 PM PROVIDER RELATIONS SPECIALIST Associated Problem(s): Vasovagal syncope - unclear etiology since events happened several weeks ago - based on history suspect vasovagal vs. Cardiac related - events only seem to have occured while standing. - will refer to cardiology for event monitor and possible stress test - discusses need to avoid driving until we have a better assessment of the cause IDER RELATIONS SPECIALIST * Assessment & Plan Note - Jessica Genao NP - 11/18/2021 1:45 PM CSTAssociated Problem(s): Mixed hyperlipidemia >>ASSESSMENT AND PLAN FOR HYPERTRIGLYCERIDEMIA WRITTEN ON 11/18/2021 3:50 PM BY LAUREN FROST MD - continue dietary changes - discussed healthy diet documented in this encounter Plan of Treatment Not on file documented as of this encounter Procedures Procedure Name Priority Date/Time Associated Diagnosis Comments ECG 12-LEAD Routine 11/18/2021 Palpitations documented in this encounter Results * ECG 12 lead (11/18/2021) us Lemuel Frost MD ECG ORDERABLES Final Re sult documented in this encounter Visit Diagnoses Diagnosis Palpitations- Primary Hypertriglyceridemia Pure hyperglyceridemia Other headache syndrome Acute non-recurrent maxillary sinusitis DELORIS (generalized anxiety disorder) Generalized anxiety disorder Vasovagal syncope Syncope and collapse Elevated systolic blood pressure reading without diagnosis of hypertension documented in this encounter Care Teams Electrical Sign Wirer Helper Relationship Specialty Start Date End Date Lemuel Frost MD [address] [place] [phone] PCP - General Family Medicine 10/09/21 03/09/23 documented as of this encounter
--- OUTSIDE RECORDS SUMMARY | 2024-10-02 02:35 | XMS_ITS | Encounter Summary ---
Author Organization [facility] Address [address] [facility] [address] [place] [address] Care Team Providers Care Ore Storage Drier Name Role Phone Lemuel Frost MD Primary Care Provider + Encounter Details Date Type Department Care Team ([facility] st Contact Info) Description 02/10/2023 Telephone [facility] Primary Care [address] [facility] [address] [place] [address] Lemuel Frost MD [address] [facility] [address] [place] [address] Social History Tobacco Use Types Packs/Day Years [...] a senior care (including now)? No 02/11/2023 Sex and Gender Information Value Date Recorded Sex Assigned at Not on file Legal Sex Male 9:22 AM CABIN EQUIPMENT SUPERVISOR Gender Identity Male 11/18/2021 1:25 PM CABIN EQUIPMENT SUPERVISOR Sexual Orientation Straight 11/18/2021 1: 25 PM CABIN EQUIPMENT SUPERVISOR documented as of this encounter Miscellaneous Notes * Telephone Encounter - Lemuel Frost MD - 02/10/2023 4:18 PM CDT Acknowledged. Pt already sent to ER * Telephone Encounter - Julia Gong LPN - 02/10/2023 2:40 PM CDT Received call from Castile with lab, reports patient has elevated Hgb of 20.6, and when specimens were collected, they were very lipemic, reports in Epic. documented in this encounter Plan of Treatment Not on file documented as of this encounter Visit Diagnoses Not on filedocumented in this encounter Care Teams Ore Storage Drier Relationship Specialty Start Date End Date Lemuel Frost MD [address] [place] [phone] PCP - General Family Medicine 10/09/21 03/09/23 documented as of this encounter
--- OUTSIDE RECORDS SUMMARY | 2024-10-02 02:35 | XMS_ITS | Encounter Summary ---
Author Organization [facility] Address [address] [facility] [address] [place] [address] Care Team Providers Care Network Operations Lead Name Role Phone Lemuel Frost MD Primary Care Provider + Reason for Visit * Reason Comments Follow-up Complained of always being thirsty and having to urinate a lot, concerned that he has diabetes, has a family history of diabetes, has been feeling exhausted and vision has been blurry, he has lost about 30 pounds in a month and a half Had labs done at work in September, A1c 7.9, triglycerides were 876, liver was 97, Bp was 156/92 Encounter Details Date Type Department Care Team (Late st Contact Info) Description 02/08/2023 8:30 AM CDT Office Visit [facility] Primary Care [address] [place] [phone] Lemuel Frost MD [address] [place] [phone] Annual physical exam (Primary Dx); Type 2 diabetes mellitus with hyperglycemia, without long-term current use of insulin (CMS/HCC) (HCC); Hypertriglyceridemia Social History Tobacco Use Types Packs/Day Years Used Date Smoking Tobacco: Never Tobacco Cessation:Counseling Given: Not Answered AUDIT-C Answer Date Recorded Q1: How often [...] staff should administer the PHQ-9) 3 02/08/2023 Sex and Gender Information Value Date Recorded Sex Assigned at Not on file Legal Sex Male 9:22 AM SUPERVISOR FRONT Gender Identity Male 11/18/2021 1:25 PM SUPERVISOR FRONT Sexual Orientation Straight 11/18/2021 1: 25 PM SUPERVISOR FRONT documented as of this encounter Last Filed Vital Signs Vital Sign Reading Time Taken Comments Blood Pressure 128/90 02/08/2023 8:39 AM CDT Pulse 108 02/08/2023 8:39 AM CDT Temperature 36.3 ??C (97.3 ??F) 02/08/2023 8:39 AM CD T Respiratory Rate 18 02/08/2023 8:39 AM CDT Oxygen Saturation 98% 02/08/2023 8:39 AM CDT Inhaled Oxygen Concentration - - Weight 67.8 kg (149 lb 6.4 oz) 02/08/2023 8:39 A M CDT Height 172.7 cm (5' 8 ) 02/08/2023 8:39 AM CDT Body Mass Index 22.72 02/08/2023 8:39 AM CDT documented in this encounter Ordered Prescriptions Prescription Sig Dispense Quantity Refills Last Filled Start Date End Date blood-glucose meter kitIndications:Typ e 2 diabetes mellitus with hyperglycemia, without long-term current use of insulin (HCC) Use as directed to check blood glucose four times per day 1 kit 02/08/2023 pen needle, diabetic 31 gauge x 02/08 needleIndications: Type 2 diabetes mellitus with hyperglycemia, without long-term current use of insulin (HCC) Use to inject 1-4 times daily as directed. 300 each 4 02/08/2023 lancets miscIndications:di abetes Use as directed to check blood glucose 4 times per day 200 each 3 02/08/2023 blood glucose diagnostic (glucose blood) stripIndications:T ype 2 diabetes mellitus with hyperglycemia, without long-term current use of insulin (HCC) Use as directed to check blood glucose 4 times per day 100 each 11 02/08/2023 insulin glargine 100 unit/mL (3 mL) pen for injectionIndicatio ns:Type 2 diabetes mellitus with hyperglycemia, without long-term current use of insulin (HCC) Inject 10 Units under the skin daily 6 mL 3 02/08/2023 3 metFORMIN XR (GLUCOPHAGE XR) 500 mg 24 hr tabletIndications: Type 2 diabetes mellitus with hyperglycemia, without long-term current use of insulin (HCC) Take 1 tablet (500 mg total) by mouth 2 (two) times a day before breakfast and lunch 360 tablet 1 02/08/2023 3 documented in this encounter Progress Notes * Lemuel Frost MD - 02/08/2023 8:30 AM CDT Images from the original note were not included. Subjective/Objective Patient ID: Chadwick Holcomb is a 42 y.o. male. Chief Complaint Follow-up (Complained of always being thirsty and having to urinate a lot, concerned that he has diabetes, has a family history of diabetes, has been feeling exhausted and vision has been blurry, he has lost about 30 pounds in a month and a half /Had labs done at work in September, A1c 7.9, triglycerides were 876, liver was 97, Bp was 156/92) Vitals: 02/08/23 0839 BP: 128/90 BP Location: Right arm Patient Position: Sitting Pulse: 108 Resp: 18 Temp: 36.3 ??C (97.3 ??F) TempSrc: Temporal SpO2: 98% Weight: 67.8 kg (149 lb 6.4 oz) Height: 172.7 cm (5' 8 ) Wt Readings from Last 3 Encounters: 02/08/23 67.8 kg (149 lb 6.4 oz) 12/16/21 78.4 kg (172 lb 12.8 oz) 11/18/21 78.7 kg (173 lb 6.4 oz) HPI: Chadwick Holcomb is a 42 y.o. male here today for the following concerns: Annual exam - due for labs. Not exercising. Will be due for colonoscopy in March. Does not smoke Diabetes - pt had A1c done at work in sep with value of 7.9. Did not seek care until today. Drinking lots of soda and OJ to quench thirst. Increased urination. Vision worse for distance lately. No hxof DM. Does have fhx of DM in mother and brother. Pt lost 30 lbs over last few months without trying. Chronic Medical Conditions: Hypertriglyceridemia - trig on 03/11/21 of 1035. Snoring - snores most nights. Not interested in sleep study at this time. Chronic headaches - daily. Magnesium and vit b2. - Has been getting them for many years but sx have worsened. Over last few months has also had some occasional dizziness/light headedness. - MRI head showed sinusitis but otherwise normal. Health Maintenance: - Colonoscopy (45-75): due age 45 - PSA (50-70): due age 50 - Tobacco history: Never used - Exercise: no Specialists Involved in Care: - None Health Maintenance Topic Date Due Regular Well Visit/Exam 18-64 Never done Covid-19 Vaccine (2 - Booster for Andrei series) 04/11/2021 DTaP/Tdap/Td Vaccine (7 - Tdap) 09/06/2021 Influenza Vaccine (Season Ended) 2023 Depression Screening-PHQ 02/09/2024 Pneumococcal vaccine <65 Aged Out Review of Systems Constitutional: Negative for chills and fever. HENT: Negative for congestion, rhinorrhea and sore throat. Respiratory: Negative for cough and shortness of breath. Cardiovascular: Negative for chest pain. Gastrointestinal: Negative for abdominal pain, constipation, diarrhea, nausea and vomiting. Endocrine: Positive for polyuria. Neurological: Negative for headaches. Psychiatric/Behavioral: Negative for dysphoric mood. The patient is not nervous/anxious. Physical Exam Vitals reviewed. Constitutional: Appearance: He is well-developed. HENT: Head: Normocephalic and atraumatic. Right Ear: Tympanic membrane and external ear normal. Left Ear: Tympanic membrane and external ear normal. Mouth/Throat: Mouth: Mucous membranes are moist. Pharynx: Uvula midline. No oropharyngeal exudate or posterior oropharyngeal erythema. Eyes: General: Right eye: No discharge. Left eye: No discharge. Conjunctiva/sclera: Conjunctivae normal. Pupils: Pupils are equal, round, and reactive to light. Cardiovascular: Rate and Rhythm: Normal rate and regular rhythm. Heart sounds: Normal heart sounds, S1 normal and S2 normal. No murmur heard. No friction rub. No gallop. Pulmonary: Effort: Pulmonary effort is normal. No respiratory distress. Breath sounds: Normal breath sounds. No wheezing or rales. Abdominal: General: Bowel sounds are normal. There is no distension. Palpations: Abdomen is soft. Tenderness: There is no abdominal tenderness. There is no guarding or rebound. Skin: General: Skin is warm and dry. Findings: No rash. Neurological: General: No focal deficit present. Mental Status: He is alert and oriented to person, place, and time. Psychiatric: Mood and Affect: Mood normal. Speech: Speech normal. Behavior: Behavior normal. Thought Content: Thought content normal. Judgment: Judgment normal. Assessment/Plan Diagnoses and all orders for this visit: Annual physical exam (Primary) Assessment & Plan: - Reviewed with the patient BMI, blood pressure, diet, exercise, and encouraged healthy lifestyle choices. - Screened for high risk behaviors, diet and exercise habits, and symptoms of depression. - check screening labs - encouraged regular exercise and healthy diet Orders: - Lipid panel; Future Type 2 diabetes mellitus with hyperglycemia, without long-term current use of insulin ([facility]) ([facility]) Assessment & Plan: - uncontrolled - start lantus 10 units qam, metformin francesco to 1000mg bid - f/u in - ref to nutrition - check labs - start checking glucose levels - discussed diet choices and tx of DM - go to ER if sx worsen Orders: - Glutamic acid decarboxylase; Future - C-peptide; Future - Basic metabolic panel; Future - Vitamin B12; Future - Albumin Creatinine Ratio, Urine; Future - Lipid panel; Future - metFORMIN XR (GLUCOPHAGE XR) 500 mg 24 hr tablet; Take 1 tablet (500 mg total) by mouth 2 (two) times a day before breakfast and lunch - blood glucose diagnostic (glucose blood) strip; Use as directed to check blood glucose 4 times per day - insulin glargine 100 unit/mL (3 mL) pen for injection; Inject 10 Units under the skin daily - lancets misc; Use as directed to check blood glucose 4 times per day - pen needle, diabetic 31 gauge x 5/16 needle; Use to inject 1-4 times daily as directed. - blood-glucose meter kit; Use as directed to check blood glucose four times per day - Ambulatory referral to Diabetes and Nutrition; Future - POCT hemoglobin A1c Hypertriglyceridemia Assessment & Plan: - check labs Orders: - Lipid panel; Future Orders Placed This Encounter Procedures Glutamic acid decarboxylase Standing Status: Future Standing Expiration Date: 02/09/2024 C-peptide Standing Status: Future Standing Expiration Date: 02/09/2024 Basic metabolic panel Standing Status: Future Standing Expiration Date: 02/09/2024 Vitamin B12 Standing Status: Future Standing Expiration Date: 02/09/2024 Albumin Creatinine Ratio, Urine Standing Status: Future Standing Expiration Date: 02/09/2024 Lipid panel Standing Status: Future Standing Expiration Date: 02/09/2024 Ambulatory referral to Diabetes and Nutrition 42 yo M with new dx of DM. Please evaluate and treat. Standing Status: Future Standing Expiration Date: 02/09/2024 Referral Priority: Routine Referral Type: Consultation Referral Reason: Specialty Services Required Referral Location: [facility] Number of Visits Requested: 10 POCT hemoglobin A1c *This note is dictated using [employer] voice recognition software, variances in spelling and vocabulary are possible and unintentional.* Lemuel Frost MD documented in this encounter Miscellaneous Notes * Assessment & Plan Note - Lemuel Frost MD - 02/08/2023 9:33 AM CDT Associated Problem(s): Hypertriglyceridemia (Deleted) - check labs * Assessment & Plan Note - Lemuel Frost MD - 02/08/2023 9:30 AM CDT Associated Problem(s): Type 2 diabetes mellitus with hyperglycemia, with long- term current use of insulin (HCC) - uncontrolled - start lantus 10 units qam, metformin francesco to 1000mg bid - f/u in - ref to nutrition - check labs - start checking glucose levels - discussed diet choices and tx of DM - go to ER if sx worsen * Assessment & Plan Note - Lemuel Frost MD - 02/08/2023 9:30 AM CDT Associated Problem(s): Annual physical exam - Reviewed with the patient BMI, blood pressure, diet, exercise, and encouraged healthy lifestyle choices. - Screened for high risk behaviors, diet and exercise habits, and symptoms of depression. - check screening labs - encouraged regular exercise and healthy diet * Assessment & Plan Note - Jessica Genao NP - 02/08/2023 8:30 AM CDTAssociated Problem(s): Mixed hyperlipidemia >>ASSESSMENT AND PLAN FOR HYPERTRIGLYCERIDEMIA WRITTEN ON 02/08/2023 9:33 AM BY LAUREN FROST MD - check labs documented in this encounter Plan of Treatment Not on file documented as of this encounter Procedures Procedure Name Priority Date/Time Associated Diagnosis Comments POCT HEMOGLOBIN A1C Routine 02/08/2023 9 :14 AM CDT Type 2 diabetes mellitus with hyperglycemia, without long-term current use of insulin ([facility]) ([facility]) documented in this encounter Results * (ABNORMAL) Lipid panel (02/08/2023 9:50 AM CDT) [facility] Cholesterol 497(H) 30 - 199 mg/dL ELL[facility]OT HINES Comment: [...] last revised on 2018. Testing performed by: [facility], [address] [place] [address]., [id number] Triglycerides 2,329(H) <=149 mg/dL ELLIOT Comment: Interpretive Data Ages [...] last revised on 2018. Testing performed by: [facility], [address] [place] [address]., [id number] HDL 11(L) >=40 mg/dL ELLIOT HINES Comment: [...] last revised on 2018. Testing performed by: [address] [address] LDL, calculated See Comment <=129 ELLIOT HINES Comment: Unable to calculate due [...] last revised on 2018. Testing performed by: [address] [address] Non-HDL Cholesterol See Comment ELLIOT Comment: Interpretive Data Ages < or [...] last revised on 2018. Testing performed by: [address] [address] Chol/HDL ratio See Comment ELLIOT Comment:Testing performed by : [address] [address] Blood 02/08/2023 9:50 AM CDT 02/08/2023 11:40 AM CDT Lemuel Frost MD LAB BLOOD ORDERABLES Fin al Result Performing Organization Address [facility] Co de Phone Number E[facility] [address] [place] [address] * (ABNORMAL) Albumin Creatinine Ratio, Urine (02/08/2023 9:50 AM CDT) Albumin Ur 229.8 mg/L ELLIOT Comment: Interpretive Data No reference range established. Current interpretive data was last revised 2019. Testing performed by: [address] [address] Creatinine Ur 50.8 mg/dL ELLIOT Comment: Interpretive Data No reference range established. Current interpretive data was last revised 2019. Testing performed by: [address] [address] Albumin Creatinine Ratio, Ur 452(H) 1 - 29 mg/g ELLIOT Comment:Testing performed by : [address] [address] Urine 02/08/2023 9:50 AM CDT 02/08/2023 11:43 AM CDT Lemuel Frost MD LAB URINE ORDERABLES Fin al Result Performing Organization Address [facility] de Phone Number [facility] [address] [place] [address] * Vitamin B12 (02/08/2023 9:50 AM CDT) Vitamin B12 813 230 - 1,250 pg/mL ELLIOT Comment: REDRAW: HEMOLYZED SPECIMEN Lipemic specimen Testing performed by: [address] [address] Blood 02/08/2023 9:50 AM CDT 02/08/2023 11:40 AM CDT us Lemuel Frost MD LAB BLOOD ORDERABLES Fin al Result [facility] [address] [facility] Department [place] [address] * (ABNORMAL) Basic metabolic panel (02/08/2023 9:50 AM CDT) Sodium 135 135 - 145 mmol/L ELLIOT Comment:Testing performed by : [address] [address] Potassium, pl 4.7 3.3 - 4.9 mmol/L ELLIOT Comment:Testing performed by : [address] [address] Chloride 94(L) 97 - 110 mmol/L ELLIOT Comment:Testing performed by : [address] [address] CO2 16(L) 22 - 32 mmol/L ELLIOT Comment:Testing performed by : [address] [address] Anion gap 25(H) 2 - 15 mmol/L ELLIOT Comment:Testing performed by : [address] [address] BUN 15 8 - 25 mg/dL ELLIOT Comment:Testing performed by : [address] [address] Creatinine 0.70(L) 0.80 - 1.30 mg/dL ELLIOT Comment:Testing performed by : [address] [address] Glucose 366(H) 70 - 199 mg/dL ELLIOT [...] was last revised 2022. Testing performed by: [facility], [address] [place] [address]., [address] Calcium 9.7 8.5 - 10.3 mg/dL ELLIOT Comment:Testing performed by : [address] [address] Blood 02/08/2023 9:50 AM CDT 02/08/2023 11:40 AM CDT Lemuel Frost MD LAB BLOOD ORDERABLES Fin al Result Performing Organization Address City/[facility]/ZIP Co de Phone Number [address] [place] [address] * C-peptide (02/08/2023 9:50 AM CDT) C-peptide 1.4 1.1 - 4.4 ng/mL ELLIOT Blood 02/08/2023 9:50 AM CDT 02/08/2023 12:52 PM CDT Lemuel Frost MD LAB BLOOD ORDERABLES Fin al Result Performing Organization Address [facility] Co de Phone Number [address] [address] * Glutamic acid decarboxylase (02/08/2023 9:50 AM CDT) GAD65 ab ser TNP ELLIOT Comment: GAD65 Ab Assay, S was cancelled on 02/10/2023 at 16:26; Specimen was lipemic. Test Performed by: [address] [address] [employer] Civil Engineer: Rajan Blake M.D. Ph.D.; CLIA# [id number] Testing performed by: [address] [address] Blood 02/08/2023 9:50 AM CDT 02/08/2023 1:24 PM CDT us Lemuel Frost MD LAB BLOOD ORDERABLES Fin al Result E[facility] [address] [facility] Department [place] [address] * (ABNORMAL) POCT hemoglobin A1c (02/08/2023 9:14 AM CDT) Hemoglobin A1C, POC 14.7 % Blood 02/08/2023 9:14 AM CDT us Lemuel Frost MD POINT OF CARE TEST ORDER ANISH Final Result documented in this encounter Visit Diagnoses Diagnosis Annual physical exam- Primary Routine general medical examination at a health care facility Type 2 diabetes mellitus with hyperglycemia, without long-term current use of insulin (HCC) Hypertriglyceridemia Pure hyperglyceridemia documented in this encounter Care Teams Network Operations Lead Relationship Specialty Start Date End Date Lemuel Frost MD [address] [place] [id number] PCP - General Family Medicine 10/09/21 03/09/23 documented as of this encounter
--- OUTSIDE RECORDS SUMMARY | 2024-10-02 02:35 | XMS_ITS | Encounter Summary ---
Author Organization [facility] Address [address] [facility] [address] [place] [address] Care Team Providers Care Reconciling Clerk Name Role Phone Lemuel Frost MD Primary Care Provider + Encounter Details Date Type Department Care Team ([facility] st Contact Info) Description 10/30/2021 Telephone [facility] Primary Care [address] [facility] [address] [place] [phone] Lemuel Frost MD [address] [facility] [address] [place] [address] Social History Tobacco Use Types [...] on file Legal Sex Male 9:22 AM SHARE HOLDER Gender Identity Male 11/18/2021 1:25 PM SHARE HOLDER Sexual Orientation Straight 11/18/2021 1: 25 PM SHARE HOLDER documented as of this encounter Miscellaneous Notes * Telephone Encounter - Paige Mg - 10/30/2021 9:04 AM CST MRI is calling from [facility] saying pt health insurance is inactive for his MRI that he has scheduled with them on 11/11/21. As of 10/26/21 availity is saying inactive. E HOLDER documented in this encounter Plan of Treatment Not on file documented as of this encounter Visit Diagnoses Not on filedocumented in this encounter Care Teams Reconciling Clerk Relationship Specialty [place] [address] [place] [address] PCP - General Family Medicine 10/09/21 03/09/23 documented as of this encounter
--- OUTSIDE RECORDS SUMMARY | 2024-10-02 02:35 | XMS_ITS | Encounter Summary ---
Author Organization [facility] Medical Group Address [address] [place] [address] Care Team Providers Care Shift Foreman Name Role Phone Lemuel Frost MD Primary Care Provider + Reason for Visit * Reason Comments Follow-up Abdominal Pain Center, vomited last night, feels SOB Encounter Details Date Type Department Care Team ([facility] st Contact Info) Description 02/10/2023 10:45 AM CDT Office Visit [facility] Medical Group Primary Care [address] [phone] Lemuel Frost MD [address] [place] [id number] Type 2 diabetes mellitus with hyperglycemia, without long-term current use of insulin (CMS/HCC) (HCC) (Primary Dx); Hypertriglyceridemia; Abdominal pain Social History Tobacco Use Types [...] How often do you attend chur or orthodoxy services? More than 4 times per year [...] on file Legal Sex Male 9:22 AM TABLET COATER Gender Identity Male 11/18/2021 1:25 PM TABLET COATER Sexual Orientation Straight 11/18/2021 1: 25 PM TABLET COATER documented as of this encounter Last Filed Vital Signs Vital Sign Reading Time Taken Comments Blood Pressure 142/96 02/10/2023 10:42 AM CDT Pulse 126 02/10/2023 10:42 AM CDT Temperature 36.6 ??C (97.8 ??F) 02/10/2023 10:42 AM C DT Respiratory Rate 16 02/10/2023 10:42 AM CDT Oxygen Saturation 99% 02/10/2023 10:42 AM CDT Inhaled Oxygen Concentration - - Weight 67.6 kg (149 lb) 02/10/2023 10:42 AM CDT Height 172.7 cm (5' 8 ) 02/10/2023 10:42 AM CDT Body Mass Index 22.66 02/10/2023 10:42 AM CDT documented in this encounter Ordered Prescriptions Prescription Sig Dispense Quantity Refills Last Filled Start Date End Date rosuvastatin (CRESTOR) 20 mg tabletIndications:Hype rtriglyceridemia Take 1 tablet (20 mg total) by mouth daily 90 tablet 3 02/10/2023 4 fenofibrate nanocrystallized (TRICOR) 145 mg tabletIndications:Hype rtriglyceridemia Take 1 tablet (145 mg total) by mouth daily 90 tablet 3 02/10/2023 4 documented in this encounter Progress Notes * Lemuel Frost MD - 02/10/2023 10:45 AM CDT Images from the original note were not included. Subjective/Objective Patient ID: Chadwick Holcomb is a 42 y.o. male. Chief Complaint Follow-up and Abdominal Pain (Center, vomited last night, feels SOB ) Vitals: 02/10/23 1042 BP: 142/96 BP Location: Left arm Patient Position: Sitting Pulse: (!) 126 Resp: 16 Temp: 36.6 ??C (97.8 ??F) TempSrc: Temporal SpO2: 99% Weight: 67.6 kg (149 lb) Height: 172.7 cm (5' 8 ) Wt Readings from Last 3 Encounters: 02/10/23 67.6 kg (149 lb) 02/08/23 67.8 kg (149 lb 6.4 oz) 12/16/21 78.4 kg (172 lb 12.8 oz) HPI: Chadwick Holcomb is a 42 y.o. male here today for the following concerns: - pt here for f/u for DM. Dx 2 days ago and started insulin and metformin 500mg daily. Glucose running in high 200s since being seen 2 days ago. - Pt developed abdominal pain after starting medication. Pain in epigastric region. Nausea and vomited several times. States it feels crampy in central abdomen. No BM for last 2 days. Has been tryingto eat better since visit 2 days ago but decreased appetite today. Low energy for last 2 days. Chronic Medical Conditions: Diabetes - metformin 1000mg bid, lantus 10 units qam; A1c 14.7. Diabetic Health Maintenance - Last A1c: 14.7 date: 02/10/23 - Annual Eye Exam: - Cholesterol Screenin02/10/23 - Nephropathy Screenin02/10/23 Hypertriglyceridemia - trig on 03/11/21 of 1035. Snoring - snores most nights. Not interested in sleep study at this time. Chronic headaches - daily. Magnesium and vit b2. - Has been getting them for many years but sx have worsened. Over last few months has also had someoccasional dizziness/light headedness. - MRI head showed sinusitis but otherwise normal. Health Maintenance: - Colonoscopy (45-75): due age 43 - Tobacco history: Never used - Exercise: no Specialists Involved in Care: - None Health Maintenance Topic Date Due Foot Exam Never done Dilated Eye Exam Never done Pneumococcal vaccine <65 (1 - PCV) Never done Covid-19 Vaccine (2 - Booster for Andrei series) 04/11/2021 DTaP/Tdap/Td Vaccine (7 - Tdap) 09/06/2021 Influenza Vaccine (Season Ended) 2023 Hemoglobin A1C 08/11/2023 Depression Screening-PHQ 02/09/2024 Regular Well Visit/Exam 18-64 02/09/2024 Albumin Creatinine Ratio, Urine 02/09/2024 Lipid Panel 02/09/2024 eGFR 02/09/2024 Review of Systems Constitutional: Positive for fatigue. Negative for chills and fever. HENT: Negative for congestion, rhinorrhea and sore throat. Respiratory: Negative for cough. Cardiovascular: Negative for chest pain. Gastrointestinal: Positive for abdominal pain, nausea and vomiting. Negative for constipation and diarrhea. Neurological: Negative for headaches. Physical Exam Vitals reviewed. Constitutional: Appearance: He is well-developed. HENT: Head: Normocephalic and atraumatic. Cardiovascular: Rate and Rhythm: Normal rate and regular rhythm. Heart sounds: Normal heart sounds. No murmur heard. No friction rub. No gallop. Pulmonary: Effort: Pulmonary effort is normal. No respiratory distress. Breath sounds: Normal breath sounds. No wheezing or rales. Abdominal: General: Abdomen is flat. Palpations: Abdomen is soft. Tenderness: There is abdominal tenderness (central abdominal ttp. no R/G.). There is no guarding orrebound. Skin: General: Skin is warm and dry. Neurological: General: No focal deficit present. Mental Status: He is alert and oriented to person, place, and time. Psychiatric: Mood and Affect: Mood normal. Behavior: Behavior normal. Thought Content: Thought content normal. Judgment: Judgment normal. Assessment/Plan Diagnoses and all orders for this visit: Type 2 diabetes mellitus with hyperglycemia, without long-term current use of insulin (CMS/[facility]) ([facility]) (Primary) Assessment & Plan: - uncontrolled - will hold metformin for now given abdominal pain - increase lantus to 14 units daily - eventually will get pt on oral meds but need to get him stable first before transitioning to oralmeds. Hypertriglyceridemia Assessment & Plan: - severe elevation in triglycerides - will start fenofibrate and statin - likely some improvement will occur just by change in diet cutting out the large amounts of soda and controlling DM. Orders: - fenofibrate nanocrystallized (TRICOR) 145 mg tablet; Take 1 tablet (145 mg total) by mouth daily - rosuvastatin (CRESTOR) 20 mg tablet; Take 1 tablet (20 mg total) by mouth daily Abdominal pain Assessment & Plan: - unclear if pt sx are due to side effect of metformin or early developing pancreatitis which he nicho risk for given very high triglycerides - zofran 4mg now for nausea - will get lipase stat - if pos will send pt to ER, if neg will tx nausea with zofran and hold metformin Orders: - Lipase; Future - CBC with auto differential; Future - Comprehensive metabolic panel; Future Orders Placed This Encounter Procedures Lipase Standing Status: Future Number of Occurrences: 1 Standing Expiration Date: 02/11/2024 CBC with auto differential Standing Status: Future Number of Occurrences: 1 Standing Expiration Date: 02/11/2024 Comprehensive metabolic panel Standing Status: Future Number of Occurrences: 1 Standing Expiration Date: 02/11/2024 *This note is dictated using [employer] voice recognition software, variances in spelling and vocabulary are possible and unintentional.* Lemuel Frost MD documented in this encounter Miscellaneous Notes * Assessment & Plan Note - Lemuel Frost MD - 02/10/2023 11:22 AM CDT Associated Problem(s): Abdominal pain (Resolved 05/05/2023) - unclear if pt sx are due to side effect of metformin or early developing pancreatitis which he nicho risk for given very high triglycerides - zofran 4mg now for nausea - will get lipase stat - if pos will send pt to ER, if neg will tx nausea with zofran and hold metformin * Assessment & Plan Note - Lemuel Frost MD - 02/10/2023 11:21 AM CDT Associated Problem(s): Hypertriglyceridemia (Deleted) - severe elevation in triglycerides - will start fenofibrate and statin - likely some improvement will occur just by change in diet cutting out the large amounts of soda and controlling DM. * Assessment & Plan Note - Lemuel Frost MD - 02/10/2023 11:18 AM CDT Associated Problem(s): Type 2 diabetes mellitus with hyperglycemia, with long- term current use of insulin (HCC) - uncontrolled - will hold metformin for now given abdominal pain - increase lantus to 14 units daily - eventually will get pt on oral meds but need to get him stable first before transitioning to oralmeds. * Assessment & Plan Note - Jessica Genao NP - 02/10/2023 10:45 AM CDT Associated Problem(s): Mixed hyperlipidemia >>ASSESSMENT AND PLAN FOR HYPERTRIGLYCERIDEMIA WRITTEN ON 02/10/2023 11:22 AM BY LEMUEL FROST MD - severe elevation in triglycerides - will start fenofibrate and statin - likely some improvement will occur just by change in diet cutting out the large amounts of soda and controlling DM. documented in this encounter Plan of Treatment Not on file documented as of this encounter Results * (ABNORMAL) Comprehensive metabolic panel (02/10/2023 11:31 AM CDT) Sodium 129(L) 135 - 145 mmol/L [facility] Comment: specimen clarified using high speed centrifugation. unable to use original specimen due to increaed viscosity Testing performed by: [address] [address] Potassium, pl 4.8 3.3 - 4.9 mmol/L [facility] Comment: specimen clarified using high speed centrifucation. unable to test original specimen due to increased viscosity Testing performed by: [address] [address] Chloride 94(L) 97 - 110 mmol/L [facility] Comment: specimen clarified using high speed centrifugation. unable to test original specimen due to increased viscosity Testing performed by: [address] [address] CO2 9(L) 22 - 32 mmol/L [facility] Comment: specimen clarified using high speed centrifugation. unable to test originals specimen due to increased viscosity Testing performed by: [address] [address] Anion gap 26(H) 2 - 15 mmol/L [facility] Comment: specimen clarified by high speed centrifugation prior to testing. ??Unable to test original specimen due to increased viscosity. Testing performed by: [address] [address] BUN 12 8 - 25 mg/dL [facility] Comment: specimen clarified by high speed centrifugation. ??Unable to test original specimen due to increased viscosity Testing performed by: [address] [address] Creatinine 1.00 0.80 - 1.30 mg/dL [facility] Comment: specimen clarified using high speed centrifugation. unable to test original specimen due to increased viscosity Testing performed by: [address] [address] Glucose 325(H) 70 - 199 mg/dL [facility] Comment: Interpretive [...] was last revised 2022. Testing performed by: [address] [address] Calcium 9.7 8.5 - 10.3 mg/dL [facility] Comment: specimen clarified by high speed centrifugation. unable to test original specimen due to increased viscosity Testing performed by: [address] [address] Bilirubin, total 0.3 0.1 - 1.2 mg/dL [facility] Comment: specimen clarified by high speed centrifugation. unable to test original specimen due to increased viscosity Testing performed by: [address] [address] Protein, pl 8.9(H) 6.5 - 8.5 g/dL [facility] Comment: specimen clarified using high speed centrifuge. unable to test original due to increased viscosity Testing performed by: [address] [address] Albumin 4.3 3.5 - 5.0 g/dL [facility] Comment: specimen clarified by high speed centrifugation. unable to test original specimen due to increased viscosity Testing performed by: [address] [address] Alk phos 126 40 - 130 Units/L [facility] Comment: specimen clarified by high speed centrifugation. unable to test original specimen due to increased viscosity Testing performed by: [address] [address] ALT 18 7 - 55 Units/L [facility] Comment: specimen clarified by high speed centrifugation. ??unable to test original specimen due to increased viscosity Testing performed by: [address] [address] AST 20 10 - 50 Units/L [facility] Comment: specimen clarified by high speed centrifugation. ??unable to test original specimen due to increased viscosity Testing performed by: [address] [address] Blood 02/10/2023 11:3 1 AM CDT 02/10/2023 12:02 PM CDT us Lemuel Frost MD LAB BLOOD ORDERABLES Adam holly Result - Final [facility] [address] [facility] Department [place] [address] * (ABNORMAL) CBC with auto differential (02/10/2023 11:31 AM CDT) WBC 38.2(H) 3.8 - 9.9 K/cumm [facility] Comment:Testing performed by : [address] [address] Hgb 20.6(C) 13.0 - 17.5 g/dL [facility] Comment: Critical result called to and read back by [facility] on 02 10 2023 at 1432 to Fatuma Gamez. Severly lipemic specimen. Calculated using clairified plasma. Testing performed by: [address] [address] Hct 44.3 38.9 - 50.3 % [facility] Comment:Testing performed by : [address] [address] Plt 454(H) 150 - 400 K/cumm [facility] Comment:Testing performed by : [address] [address] MPV 9.3 9.1 - 12.3 fL [facility] Comment:Testing performed by : [address] [address] RBC 5.14 4.30 - 5.80 M/cumm [facility] Comment:Testing performed by : [address] [address] MCV 86.2 81.3 - 96.4 fL [facility] Comment:Testing performed by : [address] [address] MCH 40.1(H) 27.1 - 33.3 pg [facility] Comment: Severly lipemic specimen. Calculated using clairified plasma. Testing performed by: [address] [address] MCHC 46.5(H) 32.3 - 35.7 g/dL [facility] Comment: Severly lipemic specimen. Calculated using clairified plasma. Testing performed by: [address] [address] RDW CV 13.1 11.1 - 14.9 % [facility] Comment:Testing performed by : [address] [address] RDW SD 40.7 35.7 - 48.1 fL [facility] Comment:Testing performed by : [address] [address] NRBC abs 0.02(H) 0.00 - 0.01 K/cumm [facility] Comment:Testing performed by : [address] [address] Blood 02/10/2023 11:3 1 AM CDT 02/10/2023 12:02 PM CDT Lemuel Frost MD LAB BLOOD ORDERABLES Adam holly Result - Final Performing Organization Address [facility] Co de Phone Number [facility] [address] [facility] Department [place] [address] * (ABNORMAL) Lipase (02/10/2023 11:31 AM CDT) Lipase 2,481(H) 10 - 99 Units/L [facility] Comment: specimen clarified using high speed centrifugation. unable to test original specimen due to increased viscosity Testing performed by: [facility], [address] [place] [address]., [address] Blood 02/10/2023 11:3 1 AM CDT 02/10/2023 12:02 PM CDT us Lemuel Frost MD LAB BLOOD ORDERABLES Adam holly Result - Final Performing Organization Address [email or web address]] de Phone Number [place] [phone] [facility] Department [place] [address] documented in this encounter Visit Diagnoses Diagnosis Type 2 diabetes mellitus with hyperglycemia, without long-term current use of insulin (HCC)- Primary Hypertriglyceridemia Pure hyperglyceridemia Abdominal pain Abdominal pain, unspecified site documented in this encounter Care Teams Shift Foreman Relationship Specialty Start Date End Date Lemuel Frost MD [address] [place] [id number] PCP - General Family Medicine 10/09/21 03/09/23 documented as of this encounter
--- OUTSIDE RECORDS SUMMARY | 2024-10-02 02:35 | XMS_ITS | Encounter Summary ---
Author Organization [facility] Healthcare Address [address] [place] [address] Care Team Providers Care Tool Maker Name Role Phone Lemuel Frost MD Primary Care Provider + Encounter Details Date Type Department Care Team (Late st Contact Info) Description 10/09/2021 11:30 AM RESIDENTIAL WORKER Lab [facility] Building [address] [address] Hypertriglyceridemia Social History Tobacco Use Types Packs/Day [...] on file Legal Sex Male 9:22 AM RESIDENTIAL WORKER Gender Identity Male 11/18/2021 1:25 PM RESIDENTIAL WORKER Sexual Orientation Straight 11/18/2021 1: 25 PM RESIDENTIAL WORKER documented as of this encounter Miscellaneous Notes * Result Encounter Note - Lemuel Frost MD - 10/12/2021 7:22 AM RESIDENTIAL WORKER Your electrolytes, liver, and kidney function are normal. Your triglycerides are high. I recommend working on a diet that is high in fresh fruits and vegetables, whole grains and fatty fish such as salmon (baked). Try to avoid processed foods. Try to increase your daily exercise. DENTIAL WORKER documented in this encounter Plan of Treatment Not on file documented as of this encounter Procedures Procedure Name Priority Date/Time Associated Diagnosis Comments EGFR Routine 10/09/2021 11:08 AM RESIDENTIAL WORKER Hypertriglyceridem ia LIPID PANEL Routine 10/09/2021 11:08 AM RESIDENTIAL WORKER Hypertriglyceridem ia COMPREHENSIVE METABOLIC PANEL Routine 10/09/2021 11:08 AM RESIDENTIAL WORKER Hypertriglyceridem ia documented in this encounter Results * eGFR (10/09/2021 11:08 AM RESIDENTIAL WORKER) eGFR 96 mL/min/1. 73 m2 [facility] Comment: Interpretive [...] was last reviewed 2021. Testing performed by: [facility], [address] [place] [address]., [address] Blood 10/09/2021 11:0 8 AM RESIDENTIAL WORKER 10/09/2021 5:07 PM RESIDENTIAL WORKER us Lemuel Frost MD LAB BLOOD ORDERABLES Fin al Result [facility] [address] [facility] Department [place] [address] * (ABNORMAL) Lipid panel (10/09/2021 11:08 AM RESIDENTIAL WORKER) Cholesterol 174 30 - 199 mg/dL [facility] Comment: Interpretive [...] last revised on 2018. Testing performed by: [facility], [address] [place] [address]., [address] Triglycerides 246(H) <=149 mg/dL [facility] Comment: Interpretive Data Ages [...] last revised on 2018. Testing performed by: [address] [address] HDL 27(L) >=40 mg/dL [facility] Comment: Interpretive [...] last revised on 2018. Testing performed by: [address] [address] LDL, calculated 98 <=129 mg/dL [facility] Comment: [...] last revised on 2018. Testing performed by: [address] [address] Non-HDL Cholesterol 147 mg/dL [facility] Comment: Interpretive Data Ages [...] last revised on 2018. Testing performed by: [address] [address] Chol/HDL ratio 6 [facility] Comment:Testing performed by : [address] [address] Blood 10/09/2021 11:0 8 AM RESIDENTIAL WORKER 10/09/2021 5:07 PM RESIDENTIAL WORKER us Lemuel Frost MD LAB BLOOD ORDERABLES Fin al Result [facility] [address] [facility] Department [place] [address] * Comprehensive metabolic panel (10/09/2021 11:08 AM RESIDENTIAL WORKER) [facility] Sodium 137 135 - 145 mmol/L [facility] Comment:Testing performed by : [address] [address] Potassium, pl 4.0 3.3 - 4.9 mmol/L [facility] Comment:Testing performed by : [address] [address] Chloride 99 97 - 110 mmol/L [facility] Comment:Testing performed by : [address], [place]., [address] CO2 24 22 - 32 mmol/L [facility] Comment:Testing performed by : [address], [place]., [address] Anion gap 14 2 - 15 mmol/L [facility] Comment:Testing performed by : [address], [place]., [address] BUN 11 8 - 25 mg/dL [facility] Comment:Testing performed by : [address], [place]., [address] Creatinine 1.00 0.80 - 1.30 mg/dL [facility] Comment:Testing performed by : [address], [place]., [address] Glucose 110 70 - 199 mg/dL [facility] Comment: Interpretive Data Fasting glucose >/= [...] was last revised 2017. Testing performed by: [address] [address] Calcium 9.6 8.5 - 10.3 mg/dL [facility] Comment:Testing performed by : [address] [address] Bilirubin, total 1.2 0.1 - 1.2 mg/dL [facility] Comment:Testing performed by : [address] [address] Protein, pl 7.9 6.5 - 8.5 g/dL [facility] Comment:Testing performed by : [address], [place]., [address] Albumin 4.6 3.5 - 5.0 g/dL [facility] Comment:Testing performed by : [facility], [address] [place] [address]., [address] Alk phos 74 40 - 130 Units/L [facility] Comment:Testing performed by : [address] [address] ALT 43 7 - 55 Units/L [facility] Comment:Testing performed by : [address] [address] AST 32 10 - 50 Units/L [facility] Comment:Testing performed by : [facility], [address] [place] [address]., [address] Blood 10/09/2021 11:0 8 AM RESIDENTIAL WORKER 10/09/2021 5:07 PM RESIDENTIAL WORKER us Lemuel Frost MD LAB BLOOD ORDERABLES Fin al Result Performing Organization Address City/State/[facility] Co de Phone Number [facility] [address] [facility] Department [place] [address] documented in this encounter Visit Diagnoses Diagnosis Hypertriglyceridemia Pure hyperglyceridemia documented in this encounter Care Teams Tool Maker Relationship Specialty Start Date End Date Lemuel Frost MD [address] [place] [id number] PCP - General Family Medicine 10/09/21 03/09/23 documented as of this encounter
--- OUTSIDE RECORDS SUMMARY | 2024-10-02 02:35 | XMS_ITS | Encounter Summary ---
Author Organization [facility] Address [address] [place] [id number] Care Team Providers Care Home Lending Officer Name Role Phone Lemuel Frost MD Primary Care Provider + Reason for Referral * Cardiology (Routine) - Closed Specialty Diagnoses / Procedures Referred By Contac t Referred To Contact Diagnoses Palpitations Procedures Event Monitor, 30 Day Event David Gilliland MD Phone: tel: fax: External Order Referral ID Status Reason Start Date Expiration Date Visits Re quested Visits Authorized [id number] Closed 02/17/2022 03/19/2023 1 1 * Cardiology (Routine) - Closed Specialty Diagnoses / Procedures Referred By Contac t Referred To Contact Diagnoses SOB (shortness of breath) Procedures Event Monitor, 30 Day Event David Gilliland MD Phone: tel: fax: External Order Referral ID Status Reason Start Date Expiration Date Visits Re quested Visits Authorized [id number] Closed 12/16/2021 01/15/2023 1 1 Reason for Visit * Reason Comments Palpitations [employer], c/o dizziness Encounter Details Date Type Department Care Team (Latest Contact Info) Description 12/16/2021 2:45 PM CDT Office Visit [facility] Cardiology [address] [place] [address] David Gilliland MD [address] [facility] [address] [place] [address] Hypertriglyceridemia (Primary Dx); Palpitations; Chest pain, unspecified type; SOB (shortness of breath) Social History Tobacco Use Types Packs/Day Years [...] on file Legal Sex Male 9:22 AM [employer] Gender Identity Male 11/18/2021 1:25 PM [employer] Sexual Orientation Straight 11/18/2021 1: 25 PM [employer]IST documented as of this encounter Last Filed Vital Signs Vital Sign Reading Time Taken Comments Blood Pressure 126/80 12/16/2021 3:09 PM CDT Pulse 94 12/16/2021 3:09 PM CDT Temperature - - Respiratory Rate - - Oxygen Saturation 99% 12/16/2021 3:09 PM CDT Inhaled Oxygen Concentration - - Weight 78.4 kg (172 lb 12.8 oz) 12/16/2021 3:09 PM CDT Height 172.7 cm (5' 8 ) 12/16/2021 3:09 PM CDT Body Mass Index 26.27 12/16/2021 3:09 PM CDT documented in this encounter Progress Notes * David Gilliland MD - 12/16/2021 2:45 PM CDT Images from the original note were not included. Cardiology Initial Clinic Visit HPI: We are seeing Chadwick Holcomb in clinic today for initial office visit. Gets dizzy frequently, multiple times daily. Some syncopal events. Some dyspnea, diaphoresis. Random, not exertional, not positional. Occasional chest discomfort. Gets palpitations, unpredictably. Review of Systems: 14 point ROS was discussed with the patient and is negative except as noted in the history of present illness. PMH: None No Known Allergies Social History Tobacco Use ??? Smoking status: Never Smoker ??? Smokeless tobacco: Not on file Substance Use Topics ??? Alcohol use: Not on file Family History Problem Relation Age of Onset ??? Cancer Mother ??? Diabetes Mother ??? No Known Problems Father ??? Hypertension Brother Physical Exam: Vitals BP 126/80 (BP Location: Left arm, Patient Position: Sitting) Pulse 94 Ht 172.7 cm (5' 8 ) Wt 78.4 kg (172 lb 12.8 oz) SpO2 99% BMI 26.27 kg/m?? General: Pleasant male in no acute distress. HEENT: normocephalic, atraumatic, no conjunctival injection, no scleral icterus Neck: No JVD, no thyromegaly Lungs: Clear bilaterally. No rales. No rhonchi. No wheezing. Cardiac: Normal rate, regular rhythm, no murmurs, no rubs, no gallops. PMI nondisplaced. Abdomen: Soft, nontender, nondistended. No masses. No bruits. No hepatosplenomegaly. Extremities: Warm and well perfused. No clubbing. No cyanosis. No edema Skin: No rashes noted. No lesions noted. Psych: Appropriate affect. Appropriate mood. Neuro: A&O x 4. Moving all extremities well. Looking for a new job. Assessement and Plan -palpitations, chest pain, dyspnea. Plan on an echo, myoview, and a 30 day event monitor. -HLD. ASCVD 10 year risk 3.2%. Lipids from 10/09/2021 reviewed, LDL 98, HDL 27, triglycerides 246. Recommend continuing dietary modification. -Cardiac Risk Reduction: I have discussed with the patient the importance of healthy diet and regular exercise. Cardiac Testing: Echo, stress test, and event monitor pending We appreciate the opportunity to take care of Chadwick Holcomb. Please do not hesitate to call us if you have any questions or concerns. Sincerely yours, David Gilliland MD documented in this encounter Miscellaneous Notes * Addendum Note - Kimberlyn Anderson MA - 12/16/2021 2:45 PM CDTAddended by: KIMBERLYN ANDERSON on: 02/17/2022 11:12 AM Modules accepted: Orders documented in this encounter Plan of Treatment Scheduled Orders Name Type Priority Associated Diagnoses Orde r Schedule Event Monitor, 30 Day Event Cardiac Services Routine SOB (shortness of breath) Expected: 01/16/2022, Expires: 12/16/2022 documented as of this encounter Results * Event Monitor, 30 Day Event (02/17/2022 11:16 AM CDT) Anatomical Region Laterality Modality Other Narrative 02/17/2022 5:43 PM CDT AMBULATORY [facility] REPORT Patient Name: Chadwick Holcomb Date of : 1980 ?? Date of interpretation: 02/17/22 Type of monitor : ??Event monitor Date of the study/Enrollment period: ??30 days Indication: ??Palpitations Quality of the study: ??Good Interpretation: ??The patient was monitored for total of 30 days. ??The low, medium, and high heart rates were 57, 86, and 120 respectively. ??There was no atrial fibrillation. ??There were less than 1% PVCs and less than 1% PACs. ??There were no arrhythmias noted on any of the provided strips. Conclusions: Normal 30 day event monitor report. David Gilliland MD, [facility], [facility] 02/17/22 David Gilliland MD [facility] Final Result documented in this encounter Visit Diagnoses Diagnosis Hypertriglyceridemia- Primary Pure hyperglyceridemia Palpitations Chest pain, unspecified type SOB (shortness of breath) Shortness of breath Palpitations documented in this encounter Discontinued Medications Medication Sig Discontinue Reason Start Date End Da te albuterol HFA (ProAir HFA) 90 mcg/actuation inhalerIndications:COV ID-19 virus infection Inhale 2 puffs every 4 (four) hours as needed for wheezing or shortness of breath Therapy completed 10/09/2021 12/16/2021 fluticasone propionate (FLONASE) 50 mcg/actuation nasal sprayIndications:Acute non-recurrent maxillary sinusitis Administer 2 sprays into each nostril daily Therapy completed 11/17/2021 12/16/2021 sod bicarb-sod chlor-neti pot packet with rinse deviceIndications:Nasa l Congestion Use as directed Therapy completed 11/17/2021 12/16/2021 documented as of this encounter Care Teams Home Lending Officer Relationship Specialty Start Date End Date Lemuel Frost MD [address] [place] [address] [phone] PCP - General Family Medicine 10/09/21 03/09/23 documented as of this encounter
--- OUTSIDE RECORDS SUMMARY | 2024-10-02 02:35 | XMS_ITS | Encounter Summary ---
Author Organization [facility] Address [address] [place] [address] Care Team Providers Care Material Worker Name Role Phone Lemuel Frost MD Primary Care Provider + Reason for Visit * Reason Comments Abnormal Lab * Auth/Cert (Routine) Specialty Diagnoses / Procedures Referred By Contac t Referred To Contact Diagnoses Diabetic ketoacidosis without coma associated with other specified diabetes mellitus (HCC) Acute pancreatitis, unspecified complication status, unspecified pancreatitis type Procedures NA Referral ID Status Reason Start Date Expiration Date Visits Re quested Visits Authorized [id number] 1 1 Encounter Details Date Type Department Care Team (Late st Contact Info) Description 02/10/2023 4:10 PM CDT - 02/15/2023 12:51 PM CDT Hospital Encounter [address] [address] Juvenal Anderson MD [address] [facility] [address] [place] [address] Mirella Coleman MD [address] [facility] [id number] [place] [address] Prabha Cobb MD [address] [place] [id number] Arnold Xiong MD [address] [place], [place] [id number] Diabetic ketoacidosis without coma associated with other specified diabetes mellitus (HCC) (Primary Dx); Acute pancreatitis, unspecified complication status, unspecified pancreatitis type; Hypertriglyceridemi a Discharge Disposition: Discharge to home or self [...] How often do you attend chur or voodoo services? 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 Gender Identity Male 11/18/2021 1:25 PM BASTING PULLER Sexual Orientation Straight 11/18/2021 1: 25 PM BASTING PULLER documented as of this encounter Last Filed Vital Signs Vital Sign Reading Time Taken Comments Blood Pressure 126/89 02/15/2023 11:28 AM CDT Pulse 101 02/15/2023 11:28 AM CDT Temperature 36.7 ??C (98.1 ??F) 02/15/2023 11:28 AM C DT Respiratory Rate 18 02/15/2023 11:28 AM CDT Oxygen Saturation 99% 02/15/2023 11:28 AM CDT Inhaled Oxygen Concentration - - Weight 68.1 kg (150 lb 2.1 oz) 02/11/2023 3:30 A M CDT Height 172.7 cm (5' 8 ) 02/11/2023 3:30 AM CDT Body Mass Index 22.83 02/11/2023 3:30 AM CDT documented in this encounter Discharge Summaries * Arnold Xiong MD - 02/15/2023 10:31 AM CDT Inpatient Discharge Summary BRIEF OVERVIEW Admitting Provider: Juvenal Anderson MD Discharge Provider: Arnold Xiong MD Primary Care Physician at Discharge: Lemuel Frost MD [phone] Admission Date: 02/10/2023 Discharge Date: 02/15/2023 Admission Location: [facility] Problems/Diagnoses: Acute pancreatitis Diabetes /DKA Lung nodule DETAILS OF HOSPITAL STAY Presenting Problem/History of Present Illness: As below Hospital Course: 43-year-old male with past medical history of recently diagnosed diabetes, was admitted for DKA/pancreatitis. He was initially started on insulin drip, changed over to basal bolus regimen He was restarted on his diet, patient was doing better, cleared for discharge 02/15 Further hospital notes Acute pancreatitis Cholelithiasis Resolved, patient able to eat Outpatient follow-up with primary care physician 02/15 Follow-up CT scan, blood work as per primary care physician Above discussed with patient per he will follow-up with primary care physician regarding repeat CT scan, cholelithiasis cut back on alcohol use age Recently diagnosed diabetes Admitted for DKA Patient report fingersticks with primary care physician Monitor, basal dosing as well as nighttime dosing with Lantus Lung nodule Outpatient follow with PCP Discharge diagnosis Acute pancreatitis Diabetes /DKA Lung nodule Active Issues Requiring Follow-up: Acute pancreatitis Diabetes /DKA Lung nodule Test Results Pending at Discharge: Pending Labs Order Current Status Comprehensive metabolic panel In process Operative Procedures Performed: Other Procedures: Pertinent Test Results: Discharge Details Physical Exam at Discharge: Discharge Condition: stable Pulse: 97 Resp: 18 BP: 112/79 Temp: 36.7 ??C (98 ??F) Weight: 68.1 kg (150 lb 2.1 oz) Pertinent Exam Findings at Discharge: HEENT normocephalic atraumatic, pupils reactive Heart regular rate and rhythm Abdomen soft nontender Extremities no clubbing cyanosis or pedal edema Neurological patient is awake and alert, answering questions appropriate Discharge Disposition: Discharge to home or self care Code Status at Discharge: Full Discharge Instructions: Activity Instructions Discharge Activity: Lifting restrictions No strenuous activity until cleared by primary care physician Diet Instructions Adult Discharge Diet Diet Type: Other (specify) Explanatory Comment: GI soft diet for 2 weeks Continue to follow a consistent carbohydrate diet upon discharge. Avoid concentrated sweets such ascookies, cake, candy and ice cream. Also, avoid sugar-sweetened beverages such as lemonade, sweet tea, regular soda, juice and Gatorade. Eat 60 g of carbohydrates at each meal. Eat 3 meals per day and try to eat at consistent times. If interested, ask your doctor for referral to outpatient nutrition counseling. Call [facility] Dietitian's office at [phone] for questions about your diet. Additional resources available from the [place] [employer] can be found at www.diabetes.org/nutrition Discharge Medications: Current Medications TAKE these medications blood-glucose meter kit Use as directed to check blood glucose four times per day fenofibrate nanocrystallized 145 mg tablet Take 1 tablet (145 mg total) by mouth daily Commonly known as: TRICOR glucose blood strip Use as directed to check blood glucose 4 times per day Generic drug: blood glucose diagnostic insulin glargine 100 unit/mL vial for injection Inject 75 Units under the skin nightly Commonly known as: LANTUS, SEMGLEE insulin lispro 100 unit/mL vial for injection Inject 10 Units under the skin 3 (three) times a day with meals For: diabetes Commonly known as: HumaLOG, ADMELOG lancets misc Use as directed to check blood glucose 4 times per day For: diabetes metFORMIN XR 500 mg 24 hr tablet Take 1 tablet (500 mg total) by mouth 2 (two) times a day before breakfast and lunch Commonly known as: GLUCOPHAGE XR pantoprazole DR 40 mg EC tablet Take 1 tablet (40 mg total) by mouth 2 (two) times a day For: Stress Ulcer Prophylaxis Commonly known as: PROTONIX pen needle, diabetic 31 gauge x 5/16 needle Use to inject 1-4 times daily as directed. rosuvastatin 20 mg tablet Take 1 tablet (20 mg total) by mouth daily Commonly known as: CRESTOR Outpatient Follow-Up: Contact Information for Follow-ups Lemuel Frost MD Specialty: Family Medicine Relationship: PCP - General [address] [place] [id number] Next Steps: Follow up Instructions: Follow-up PCP 4-7 days, recommend CBC/CMP with PCP 4-7 days, report all fingersticks to primary care physician YVETTE, CT scan, GI workup, lung nodule workup as per primary care physician Questions: Instructions for follow-up (appointment date and time): Follow-up PCP 4-7 days, recommend CBC/CMP with PCP 4-7 days, report all fingersticks to primary care physician YVETTE, CT scan, GI workup, lung nodule workup as per primary care physician To provider: LEMUEL FROST documented in this encounter Discharge Instructions * Discharge Instr - Diet* Leah Jacobs RD - 02/11/2023 1:34 PM CDT Continue to follow a consistent carbohydrate diet upon discharge. Avoid concentrated sweets such ascookies, cake, candy and ice cream. Also, avoid sugar-sweetened beverages such as lemonade, sweet tea, regular soda, juice and Gatorade. Eat 60 g of carbohydrates at each meal. Eat 3 meals per day and try to eat at consistent times. If interested, ask your doctor for referral to outpatient nutrition counseling. Call [facility] Dietitian's office at [phone] for questions about your diet. Additional resources available from the [place] [employer] can be found at www.diabetes.org/nutrition documented in this encounter Medications at Time [...] four times per day 1 kit 02/08/2023 lancets miscIndications:diabe ayan Use as directed to check blood glucose 4 times per day 200 each 3 02/08/2023 pen needle, diabetic 31 gauge x 02/08 needleIndications:Typ e 2 diabetes mellitus with hyperglycemia, [...] under the skin nightly 10 mL 1 02/15/2023 03/03/20 23 insulin lispro (HumaLOG, ADMELOG) 100 unit/mL vial for injectionIndications: Diabetes Mellitus Inject 10 Units under the skin 3 (three) times a day with meals 10 mL 1 02/15/2023 03/03/20 23 metFORMIN XR (GLUCOPHAGE XR) 500 mg [...] times a day 60 tablet 1 02/15/2023 3 insulin lispro (HumaLOG, ADMELOG) 100 unit/mL vial for injectionIndicatio ns:Diabetes Mellitus Inject 10 Units under the skin 3 (three) times a day with meals 10 mL 1 02/15/2023 3 insulin glargine (LANTUS, SEMGLEE) 100 unit/mL vial for injection Inject 75 Units under the skin nightly 10 mL 1 02/15/2023 3 documented in this encounter Discharge Disposition Disposition Code Departure Means Destination Comment s Discharge to home or self care documented in this encounter Progress Notes * Leah Jacobs RD - 02/15/2023 11:11 AM CDT Nutrition Assessment Reason for Assessment: Consult/Referral and Diet Education Encounter Date: 02/15/23 1:50 PM Patient is a 42 y.o. male. Admit Dx: Diabetic ketoacidosis without coma associated with other specified diabetes mellitus (HCC) [E13.10] Acute pancreatitis, unspecified complication status, unspecified pancreatitis type [K85.90]. Admitted on 02/10/2023, current LOS is 5 days. Nutrition Diagnosis 1: Food and nutrition-related knowledge deficit Related to: Chronic illness/injury, Food choices (DM) Evidenced by: Patient interview ASPEN Malnutrition Assessment: Date of completion (or initial diagnosis): 02/11/23 Patient does not meet criteria for malnutrition based on ASPEN guidelines. Nutrition-focused physical exam (NFPE) findings: ASPEN/AND Malnutrition Screening: Patient does not meet malnutrition criteria Subcutaneous Fat Loss Orbital Region - Surrounding the Eye: Slightly bulged fat pads Cheek Region - Buccal Fat: Full, round filled-out cheeks Upper Arm Region - Triceps/Biceps: Ample fat tissue obvious between folds of skin Muscle Loss [place] Region - Temporalis Muscle: Can see/feel well-defined muscle Clavicle Bone Region - Pectoralis Major, Deltoid, Trapezius Muscles: Visible in male, some protrusion in female Clavicle and Acromion Bone Region - Deltoid Muscle: Acromion process may slightly protrude Dorsal Hand - Interosseous Muscle: Muscle bulges, could be flat in some well nourished people Anterior Thigh and Patellar Region - Quadricep Muscle: Patella prominent, square appearance (Pt reports he has always had chicken legs ) Posterior Calf Region - Gastrocnemius Muscle: Well-developed bulb of muscle ASSESSMENT AND INTERVENTION/RECOMMENDATIONS: 02/11/23: Pt is a 42 y.o. male w/ PMH of recent DM diagnosis (within the last few days), admitted 02/10/2023 for Diabetic ketoacidosis without coma associated with other specified diabetes mellitus (HCC) [E13.10] Acute pancreatitis, unspecified complication status, unspecified pancreatitis type [K85.90]. RD wasconsulted for MST 3 (24-33 lbs weight loss). Pt reports a good appetite, states he is hungry. Pt is currently NPO per DKA protocol. Informed pt why he is currently NPO. Pt reports having a good appetite at home. Pt states he eats 2-3 meals per day. If pt has breakfast, it can be from [employer]. Pt states lunch is typically a deli sandwich, and dinner is typically meat such as steak. Beverages during the day include water, Gatorade, and occasional sodas. Pt states he is not a fan of sides, and for a while has been following an Jan's-like diet. Pt does report that he has ice cream quite often. Pt reports no upset stomach, nausea, vomiting, diarrhea, constipation. Last pt BM has not been documented. Pt reports 30 lbs weight loss. Pt reports UBW of 165-175 lbs. Pt CBW is 150 lbs. Pt reports that earlier this year, he tried losing weight and dieting. Per RN during ICU rounds, pt was taking Ozempic. Per chart review, pt previously weighed 172 lbs on 12/16/21, which indicates a 25 lb (14.5%) weightloss in 13.5 months, which is not significant for timeframe. NFPE performed (see above). D/t weightloss being partially intentional, pt does not meet criteria for malnutrition. As pt is new to diabetic diet, pt reports having no prior nutrition education. Pt willing to hear diet education (see below). All pot questions were answered at this time. Pt hopes to return home on d/c. RD will continue to monitor and follow. 02/15/23: Pt was seen for f/u for diet related questions. Pt reports a good appetite. PO intake fromthe last 4 documented meals are all 100%. Pt reports no upset stomach, nausea, vomiting, diarrhea, constipation. Last pt BM documented was 02/12/23. Pt is to d/c home today. Pt has no questions about diet education material at this time. Pt expresses determination on following diabetic diet plan. Pt states that lunch was cancelled, as he was supposed to d/c earlier and he had not had lunch yet. RD ordered lunch tray for pt. RD will continue to monitor and follow. EDUCATION NEEDED/COMPLETED? Provided and discussed with patient Carbohydrate Counting for People with Diabetes and Plate Methodfor Diabetes handouts from Nutrition Care Manual. Encouraged eating 3 meals/day for blood sugar control. Discussed foods that contain carbohydrates and how they impact blood sugars. Reviewed foods to limit/avoid. Discussed liquids that may contain carbohydrates. Encouraged the reduction of high fatfoods so to reduce weight, cholesterol, and triglyceride levels. Discussed importance of fiber for a healthy diet. Reviewed s/s of hypoglycemia and corrective action. Discussed grams of CHO recommended per meal. RD contact information provided. GOALS / MONITORING: Goals: Patient/caregiver able to teach back understanding of role of diet in disease process prior to discharge, Advance to oral intake as medically able Interventions: NFPE, Initial assessment, Education, nutrition, Encouragement Monitoring and Evaluation: Appetite, Diet advancement, Food preferences, PO intake, Diet-related questions, Discharge plans, Plan of care, Blood glucoses Anthropometrics: Wt Readings from Last 10 Encounters: 02/11/23 68.1 kg (150 lb 2.1 oz) 02/10/23 67.6 kg (149 lb) 02/08/23 67.8 kg (149 lb 6.4 oz) 12/16/21 78.4 kg (172 lb 12.8 oz) 11/18/21 78.7 kg (173 lb 6.4 oz) 10/09/21 77.2 kg (170 lb 1.6 oz) Anthropometrics Weight: 68.1 kg (150 lb 2.1 oz) Admission Weight : 68.1 kg Weight Change: 1.39 kg (3.08 lbs) IBW/kg (Calculated) : 69.9 kg Height: 172.7 cm (5' 8 ) Weight in (lb) to have BMI = 25: 164.1 BMI (Calculated): 22.8 Estimated Nutrition Needs: Calories Calculated Energy Needs Using Equations Weight Used for Equation Calculations (RD Determined): 68.1 kg (150 lb 2.1 oz) Weight: 68.1 kg (150 lb 2.1 oz) Height: 172.7 cm (5' 8 ) [place] Equation (Overweight or Obese Patients): 1546 Equation Chosen to Use by RD: [place] Activity Factor: 1.2 Total Energy Needs: 1855.2 kcal Total Energy Needs + Fever Factor: 1855.2 Protein Estimated Protein Needs Type of Weight Used for Estimated Protein : Current Protein Needs Based on g/k.0 Total Protein Estimated Needs (gm): 68.1 Fluid Estimated Fluid Needs Type of Weight Used for Estimated Fluid Needs: Current Fluid Needs Based on : 25 ml/kg Total Fluid Estimated Needs: 1702.5 Total Fluid Estimated Needs Comments:: 1500 mL minimum for adult maintenance. Medications: 02/15/23: Lantus, Humalog, Protonix, PhosNaK Lab Review: 02/15/23: Cr 0.5 (L) Past Medical History: Diagnosis Date Diabetes mellitus (HCC) No past surgical history on file. Dietary Orders (From admission, onward) Start Ordered 02/13/23 2100 Bedtime snack At bedtime Comments: If bedtime BG is less than 100mg/dl, give patient a 15 gram carbohydrate snack. 02/13/23 0716 02/11/232119 Adult Diet Restricted; 4 CHO/Meal; Yes, patient is receiving insulin Diet effective now Question Answer Comment (MHB/MHE) Diet type Restricted Diabetic: 4 CHO/Meal Patient receiving insulin: Yes, patient is receiving insulin 02/11/232119 Diet Instructions Adult Discharge Diet Diet Type: Other (specify) Explanatory Comment: GI soft diet for 2 weeks Continue to follow a consistent carbohydrate diet upon discharge. Avoid concentrated sweets such ascookies, cake, candy and ice cream. Also, avoid sugar-sweetened beverages such as lemonade, sweet tea, regular soda, juice and Gatorade. Eat 60 g of carbohydrates at each meal. Eat 3 meals per day and try to eat at consistent times. If interested, ask your doctor for referral to outpatient nutrition counseling. Call [facility] Dietitian's office at [phone] for questions about your diet. Additional resources available from the [place] [employer] can be found at www.diabetes.org/nutrition Nutrition Follow-Up : 02/22/23 (diet-related questions) Leah Jacobs RD * Theresa Davis RN - 02/15/2023 10:35 AM CDT CARE COORDINATION DISCHARGE PLANNING HOME: Patient will d/c home with support from significant other. Transportation home provided by POV. Patient/Family denies needs or barriers to care ANTICIPATED D/C DATE: 02/15/2023 CM will continue to follow for progression of care, if further needs for discharge or barriers to care arise, please reach out to care management team. Theresa Davis RN 02/15/2023 10:36 AM * Kathryn Arana OT - 02/15/2023 9:04 AM CDT Occupational Therapy 02/15/23 0904 General Chart Reviewed Yes Session Type Evaluation OT Missed Visit Reason Patient declined (Pt is standing in the middle of the room on the phone, dressed and ready to be discharged upon OT arrival. He states he is discharging in a couple hours. Pt declines OT services as he is independentwith all self-care activity, bed mobility, functional transfers, and mobility. Pt does not use an assitive device. Pt demos good balance and safety awareness. Pt appears to be at baseline level. DC OT orders.) Additional Pertinent History 42 y.o. male presenting to the ED c/o generalized weakness and abdominal pain. Pt recently diagnosed with diabetes. Assessment Prognosis Excellent Plan Plan Discharge Recommendation/Plan OT Recommendation Home with family OT Frequency during current admission Discharge from this Service OT - OK to Discharge Yes * Lavelle Augustin, PT - 02/14/2023 3:49 PM CDT Physical Therapy 02/14/23 1549 General Chart Reviewed Yes PT Missed Visit Reason Other (comment) Additional Pertinent History Pt is in ICU-14, now. Pt was admitted to ICU on 02/11/23 with DKA. Pt states he just recently found out about being a diabetic. Pt is dressed in his street clothes. Hopingto be able to be discharged home, today, as today is his 's Birthday, and as he also had a recent in the Family. Pt is up ad brittney, now, ambulating in the room on his own, with safe and steady gait, without use of assistive device. Pt denies having any needs for P.T., at this time. Per MANUFACTURING PROCESS TECHNICIAN ([place]), Pt will not be discharged home, today, as the Pt's blood sugars have not been stable enough to allow the Pt to be safely discharged home, at this time. Pt is a newly diagnosed diabetic. Pt reports no recent falls. 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 Pt does not normally use any assistive device at home. Current Functional Status PT Functional Mobility Pt is up and ambulating in the room with safe and steady gait. Pt is not in pain, not having any dizziness. Pt does not feel SOB with activity, now. Other Comments Other PT Comments Pt declines P.T. Eval, at this time. If the Pt has a set back, and needs P.T., inthe future, please contact the P.T. Department. MANUFACTURING PROCESS TECHNICIAN ([place]) is aware. No P.T. Eval performed. No charge. No plans for further P.T., at this time. * Grace Byrd RN - 02/14/2023 10:40 AM CDT Care Management Weekly Progression of Care Review Pt originally admitted for Diabetic ketoacidosis without coma associated with other specified diabetes mellitus (HCC) [E13.10] Acute pancreatitis, unspecified complication status, unspecified pancreatitis type [K85.90] PCP: Lemuel Frost MD Current Plan of Care Includes: Continues to get high doses insulin . Off insulin gtt. Room air withan O2 sat 96%. Blood glucose 91 this am. Possible move out to Med/Tele floor later today. Barriers to Discharge: Insulin management Anticipate Discharge Plan/Needs: Endocrinology follow up. Grace Byrd RN 02/14/2023 2:36 PM * Robert Carcamo PA - 02/14/2023 7:39 AM CDTAssociated Order(s): Critical Care Post-Procedure Diagnose(s): Hypertriglyceridemia; Diabetic ketoacidosis without coma associated with other specified diabetes mellitus (HCC); Acute pancreatitis, unspecified complication status, unspecified pancreatitis type Images from the original note were not included. Critical Care Progress Note Hospital LOS: 4 ICU LOS: 3d 4h Subjective Patient is a 42 y.o. male presented to the ICU with chief complaint of ABD pain . HPI Chadwick Holcomb is a 42 y.o. male presenting to the ED c/o generalized weakness. He states that approximally from last 1-2 months he has been having symptoms for polydipsia, polyphagia, polyuria, he saw his primary care doctor who did lab work and was diagnosed with diabetes, was started on metforminand insulin 2 days ago, he came in today because he went to see his primary care doctor who did some lab work and found to have elevated lipase, elevated triglycerides and blood sugar. He is complaining of worsening of his weakness and fatigue in last 2-3 days along with abdominal pain and constipation denies any diarrhea. Denies any fever or chill. Denies any chest pain. Interval History: -40 PO K -2g Mag 1:33 PM discussed case with hospitalist Dr. Cobb she agrees with ICU workup plan and disposition. Accepts transfer. Past Medical History: Diagnosis Date Diabetes mellitus (HCC) No past surgical history on file. Medications: Medications Prior to Admission Medication Sig Dispense Refill Last Dose insulin glargine 100 unit/mL (3 mL) pen for injection Inject 10 Units under the skin daily 6 mL 3 02/10/2023 metFORMIN XR (GLUCOPHAGE XR) 500 mg 24 hr tablet Take 1 tablet (500 mg total) by mouth 2 (two) times a day before breakfast and lunch 360 tablet 1 02/10/2023 blood glucose diagnostic (glucose blood) strip Use as directed to check blood glucose 4 times per day 100 each 11 blood-glucose meter kit Use as directed to check blood glucose four times per day 1 kit 0 fenofibrate nanocrystallized (TRICOR) 145 mg tablet Take 1 tablet (145 mg total) by mouth daily 90 tablet 3 lancets misc Use as directed to check blood glucose 4 times per day 200 each 3 pen needle, diabetic 31 gauge x 5/16 needle Use to inject 1-4 times daily as directed. 300 each 4 rosuvastatin (CRESTOR) 20 mg tablet Take 1 tablet (20 mg total) by mouth daily 90 tablet 3 Scheduled Medications Medication Dose Route Frequency enoxaparin (LOVENOX) syringe 40 mg 40 mg subcutaneous Daily-2100 fenofibrate nanocrystallized (TRICOR) tablet 145 mg 145 mg oral Daily insulin glargine (LANTUS, SEMGLEE) 100 unit/mL injection 75 Units 75 Units subcutaneous Nightly insulin lispro (HumaLOG, ADMELOG) 100 unit/mL injection 0-10 Units 0-10 Units subcutaneous TID withmeals insulin lispro (HumaLOG, ADMELOG) 100 unit/mL injection 0-5 Units 0-5 Units subcutaneous Nightly insulin lispro (HumaLOG, ADMELOG) 100 unit/mL injection 10 Units 10 Units subcutaneous TID with meals pantoprazole (PROTONIX) 4 mg/mL injection 40 mg 40 mg intravenous Daily potassium, sodium phosphates (PHOS-NAK) 280-160-250 mg packet 2 packet 2 packet oral TID AC Continuous Medications: Current Facility-Administered Medications Medication Dose Route Frequency Last Admin PRN Medications: acetaminophen, 650 mg, 650 mg at 02/11/23 0852 dextrose, 15 g OR dextrose, 250 mL glucagon, 1 mg ondansetron, 4 mg senna-docusate, 2 tablet Objective Vitals: Most Recent : Vitals: 02/14/23 0700 BP: 124/73 Pulse: 93 Resp: 15 Temp: SpO2: 96% Hemodynamics: MAP (mmHg): [80-99] 90 Pulmonary Support: O2 Therapy: None (Room air) Intake/Output: Intake/Output Summary (Last 24 hours) at 02/14/2023 0740 Last data filed at 02/13/2023 1722 Gross per 24 hour Intake 240 ml Output 1525 ml Net -1285 ml Physical exam: CONSTITUTIONAL: No acute distress NEUROLOGICAL: Alert & oriented x4, moves all extremities well. CARDIOVASCULAR: Regular rate and rhythm,. Bilateral radial pulses 2+, bilateral dorsalis pedis pulses 2+, bilateral posterior tibial pulses 2+. No edema noted. RESPIRATORY: Lungs clear to auscultation. Respirations even and unlabored. GI: Abdomen soft, mild epigastric tenderness to palpation without guarding, distention or signs of peritonitis., non-distended. Normo-active bowel sounds noted. : Clear yellow urine. Voiding intermittently. MUSCULOSKELETAL: Moves all extremities . No contractures or visible atrophy noted/General atrophy noted. INTEGUMENTARY: Warm and dry. Intermittent ecchymosis noted. Lab/Radiology/Diagnostic Review: Recent Lab Data: Recent Labs Lab Units 02/14/23 0348 02/13/23 0452 02/12/23 0337 WBC K/cumm 7.4 7.1 11.5* HEMOGLOBIN g/dL 12.6* 12.2* 12.8* HEMATOCRIT % 34.6* 32.6* 33.6* PLATELETS K/cumm 213 189 198 Recent Labs Lab Units 02/14/23 0645 02/14/23 0348 02/13/23200502/13/23 0602/13/23 0544 02/12/23212002/12/232002 SODIUM mmol/L -- 136 -- -- 133* -- 128* POTASSIUM PLASMA mmol/L -- 3.5 -- -- 3.5 -- 3.2* CHLORIDE mmol/L -- 99 -- -- 103 -- 98 CO2 mmol/L -- 28 -- -- 21* -- 22 BUN SERUM mg/dL -- 9 -- -- 10 -- 10 CREATININE mg/dL -- 0.50* -- -- 0.60* -- 0.50* GLUCOSE mg/dL -- 87 -- -- 252* -- 202* POC GLUCOSE MONITOR mg/dL 91 -- 145 < > -- < > -- CALCIUM mg/dL -- 8.8 -- -- 8.4* -- 8.3* < > = values in this interval not displayed. Serum creatinine: 0.5 mg/dL (L) 02/14/23347 Estimated creatinine clearance: 181.6 mL/min (A) Lab Results Component Value Date CALCIUM 8.8 02/14/2023 PHOS 4.4 02/14/2023 Lab Results Component Value Date ALT 5 (L) 02/14/2023 AST 14 02/14/2023 ALKPHOS 74 02/14/2023 BILITOT 0.4 02/14/2023 Recent Imaging: CT Abdomen Pelvis W Contrast EXAM DESCRIPTION: CT ABDOMEN PELVIS W CONTRAST REASON FOR STUDY: Abdominal pain, acute, nonlocalized, pancreatitis c/o generalized weakness. He states that approximally from last 1-2 months he has been having symptoms for polydipsia, polyphagia, polyuria, he saw his primary care doctor who did lab work and was diagnosed with diabetes, was started on metformin and insulin 2 days ago, he came in today because he went to see his primary care doctor who did some lab work and found to have elevated lipase, elevated triglycerides and blood sugar. He is complaining of worsening of his weakness and fatigue in last 2-3 days along with abdominal pain and constipation denies any diarrhea. Denies any fever or chill. Denies any chest pain. He does not have any other comorbidity other than family history of diabetes. TECHNIQUE: CT scan of the abdomen and pelvis performed with intravenous and without oral contrast using helical scanning technique with dynamic intravenous contrast injection. Reconstructed coronal and sagittal MPR images reviewed. All images stored on PACS. Automated exposure control was used as a dose optimization technique for this examination. CONTRAST TYPE/DOSE: 100mL of IOVERSOL 350 MG IODINE/ML INTRAVENOUS SYRINGE injected via intravenous COMPARISON: Same day chest radiograph REFERENCE: Per ACR white paper recommendations, unless otherwise specified no follow-up imaging is recommended for incidental renal and adrenal lesions per consensus recommendations based on imaging criteria. Further lab evaluation could be pursued based on clinical findings. FINDINGS: There is a 0.5 cm ground-glass nodule in the left lower lobe on series 3, image 2. The heart is normal size without pericardial effusion. The aorta is normal in caliber and contour. The celiac trunk, superior mesenteric artery, and inferior mesenteric artery are patent. There is diffuse hepatic steatosis but no suspicious lesion in the liver. The portal vein, superior mesenteric vein, and splenic vein are patent. There is cholelithiasis in the gallbladder but no CT evidence of cholecystitis. There is no intrahepatic or extrahepatic biliary ductal dilation. There is mild stranding around the head of the pancreas the pancreatic parenchyma enhances normally. There is no dilation of the pancreatic duct. There is no drainable fluid collection. The spleen and bilateral adrenal glands are normal. The kidneys enhance symmetrically without hydronephrosis. There is a 0.3 cm hypoattenuating lesion in the left lower kidney, too small to characterize. There is diffuse wall thickening of the bladder. There is prostatomegaly. There is circumferential thickening of the distal esophagus. There is mild wall thickening of the 1st portion of the duodenum likely reactive to the pancreatitis. The remaining bowel loops are normal in caliber and contour without wall thickening. The appendix is normal. There is no free fluid, free air, or lymphadenopathy in the abdomen and pelvis. Mild degenerative changes are noted in the spine. No suspicious osseous lesions. IMPRESSION: Mild stranding around the head of the pancreas compatible with acute uncomplicated pancreatitis. No drainable fluid collection. Circumferential thickening of the distal esophagus likely secondary to reflux esophagitis. Cholelithiasis without CT evidence of cholecystitis. Hepatic steatosis. Circumferential bladder wall thickening likely secondary to chronic bladder outlet obstruction in the setting of prostatomegaly. 0.5 cm ground-glass nodule in the left lower lobe. Imaging follow-up should be guided by the Fleischner criteria included below. According to recent guidelines by the Fleischner Society, no follow up is required for incidental nodules less than 6 mm found on incomplete thoracic imaging on the basis of estimated low risk of malignancy. Note: These recommendations do not apply to patients with immunosuppression, or patients with known primary cancer. http://pubs.rsna.org/doi/pdf/10.1148/radiol.5283590943 THIS IS AN ELECTRONICALLY VERIFIED FINAL REPORT 02/10/2023 6:58 PM - Electronically signed by Teresa Rankin M.D. QX: QX Report ID: [id number] Reading Location: [id number] XR Chest 1 Vw Portable EXAM DESCRIPTION: XR CHEST 1 VIEW REASON FOR STUDY: dka Had blood work this morning. Sent by PCP for lipase 2400 and elevated WBC. Pt recently dx with diabetes. Mild abdominal. Given zofran by PCP for nausea today. TECHNIQUE: AP radiographic view(s) of the chest. COMPARISON: None FINDINGS: LUNGS: No focal opacity, pleural effusion, or pneumothorax. HEART/MEDIASTINUM: Cardiac silhouette normal in size. Mediastinal and hilar contours appear normal. LINES/TUBES: None. BONES: No acute osseous abnormality. IMPRESSION: No acute cardiopulmonary abnormality. THIS IS AN ELECTRONICALLY VERIFIED FINAL REPORT 02/10/2023 6:33 PM - Electronically signed by Teresa Rankin M.D. QX: QX Report ID: [id number] Reading Location: [id number] Assessment and Plan NEUROLOGICAL: #Acute pain secondary to acute pancreatitis - APAP PRN - Pain goal < 4/10 - Continue to closely monitor pain level and modify the regimen appropriately. CARDIOVASCULAR: Last TTE:none - home rosuvastatin added Hemodynamically stable, unsupported. No acute issues PULMONARY: No acute issues Currently on room air Maintain Sp02>92% Encourage pulmonary hygiene, IS,UOOB, PT/OT GASTROINTESTINAL: - Nutrition plan: NPO, D5 infusion per DKA protocol while NPO. - Bowel regimen: P.r.n. Pericolace - PUD ppx: Protonix # acute pancreatitis-POA # cholelithiasis-POA -likely secondary to hypertriglyceridemia VS DKA versus cholelithiasis - 02/10/2023 CT abdomen pelvis with contrast mild stranding around the head of the pancreas compatible with acute uncomplicated pancreatitis without drainable fluid collection., cholelithiasis without CT evidence of cholecystitis without ductal dilation. - presenting lipase 2481, presenting triglycerides 2329 -lactate normal, - minimal pain on exam - IV fluid per DKA protocol - pain control per above - NPO - repeat triglycerides up trending - Tricor added - continue to monitor ENDOCRINE: - Maintenance IV fluids: Per DKA protocol # hyperglycemia-POA # DKA-POA # type 2 diabetes-POA -last A1c 13.0 - on presentation labs consistent with DKA, sugars 325, anion gap 26, bicarb 9 beta hydroxybutyric acid 6.5, pH of 7.11 - insulin drip per protocol - NPO - medical educator following - replete potassium and magnesium as indicated - Q 1 hour blood glucose checks--> Q4 -patient transitioned off of insulin drip however requiring very substantial amounts of long-actingand short-acting insulin to manage blood sugars with meals. Still somewhat volatile. - currently patient is on 75 units of Lantus q.h.s., 10 units of lispro with meals plus high-dose sliding scale. - patients blood sugra has been stable - continue to monitor. RENAL: #NAGMA- POA--Resolved - likely secondary to DKA - voiding - strict I&Os - avoid nephrotoxins, renally dose medications - trend BMP - replace lytes as indicated # hyponatremia-POA--Resolved - likely secondary to DKA and hypovolemia - continue to monitor HEMATOLOGY: No acute issues - No s/s of bleeding, no indication for transfusion at this time. Continue to monitor CBC. - Transfuse for Hbg <7 - DVT prophylaxis: Lovenox, SCDs INFECTIOUS DISEASE: #Leukocytosis-- Resolved - Likely likely reactive - afebrile - monitor white count and trend fever curve - follow up culture data Antibiotics: -Zosyn (02/10) X1 Cultures: 02/10-blood cultures x2-no growth to date 02/1064-jlrwcprogz-bgrobuoa MSK: # PT/OT ICU MANAGEMENT: DVT Prophylaxis: Lovenox PUD Prophylaxis: Protonix Surrogate Decision Maker: Goals of Care/Code Status: Full code Dispo: Patient remains hemodynamically stable alert and oriented responding appropriately has no complaints of pain at this time. Patient is off of insulin drip, and blood sugars are stable on current regimen. Plan to transfer patient to care of hospitalist for further evaluation and discharge planning. 1:33 PM discussed case with hospitalist Dr. Cobb she agrees with ICU workup plan and disposition. Accepts transfer. At this time critical care team will sign off. Should the patient's condition change or new issues arise feel free to reconsult critical Care Medicine. Thank you for the opportunity to manage the care of this patient. Assessment and plan has been reviewed with attending, [facility] Performed by: Robert Carcamo PA Authorized by: Robert Carcamo PA CRITICAL CARE: Team: [facility] Shift: AM Level of Billing: Subsequent Hospital Visit Level 3 My time spent with this patient was 65 minutes: Critical Provider Statement: I have seen and examined the patient on this day of service. I have reviewed and confirmed the history, physical exam, laboratory, and radiographic data as documented in the ICU note. I have reviewed and discussed my treatment plan with the patient's team and other medical/professional benefits sales consultant staff. This time was in addition to and separate from care provided by other practitioners on this day of service. ALFREDITO Cornell Cosigned by Dylan Roa MD at 02/14/2023 6:37 PM CDT * Robert Carcamo PA - 02/13/2023 7:00 AM CDTAssociated Order(s): Critical Care Post-Procedure Diagnose(s): Diabetic ketoacidosis without coma associated with other specified diabetes mellitus (HCC); Acute pancreatitis, unspecified complication status, unspecified pancreatitis type Images from the original note were not included. Critical Care Progress Note Hospital LOS: 3 ICU LOS: 2d 16h Subjective Patient is a 42 y.o. male presented to the ICU with chief complaint of ABD pain . HPI Chadwick Holcomb is a 42 y.o. male presenting to the ED c/o generalized weakness. He states that approximally from last 1-2 months he has been having symptoms for polydipsia, polyphagia, polyuria, he saw his primary care doctor who did lab work and was diagnosed with diabetes, was started on metforminand insulin 2 days ago, he came in today because he went to see his primary care doctor who did some lab work and found to have elevated lipase, elevated triglycerides and blood sugar. He is complaining of worsening of his weakness and fatigue in last 2-3 days along with abdominal pain and constipation denies any diarrhea. Denies any fever or chill. Denies any chest pain. Interval History: Insulin drip discontinued, patient given additional NPH 20 units with 10 units of lispro with mealsand high-dose slide we will continue to monitor. Past Medical History: Diagnosis Date ??? Diabetes mellitus (HCC) No past surgical history on file. Medications: Medications Prior to Admission Medication Sig Dispense Refill Last Dose ??? insulin glargine 100 unit/mL (3 mL) pen for injection Inject 10 Units under the skin daily 6 mL3 02/10/2023 ??? metFORMIN XR (GLUCOPHAGE XR) 500 mg 24 hr tablet Take 1 tablet (500 mg total) by mouth 2 (two) times a day before breakfast and lunch 360 tablet 1 02/10/2023 ??? blood glucose diagnostic (glucose blood) strip Use as directed to check blood glucose 4 times per day 100 each 11 ??? blood-glucose meter kit Use as directed to check blood glucose four times per day 1 kit 0 ??? fenofibrate nanocrystallized (TRICOR) 145 mg tablet Take 1 tablet (145 mg total) by mouth daily90 tablet 3 ??? lancets misc Use as directed to check blood glucose 4 times per day 200 each 3 ??? pen needle, diabetic 31 gauge x 16 needle Use to inject 1-4 times daily as directed. 300 each 4 ??? rosuvastatin (CRESTOR) 20 mg tablet Take 1 tablet (20 mg total) by mouth daily 90 tablet 3 Scheduled Medications Medication Dose Route Frequency ??? enoxaparin (LOVENOX) syringe 40 mg 40 mg subcutaneous Daily-2100 ??? fenofibrate nanocrystallized (TRICOR) tablet 145 mg 145 mg oral Daily ??? insulin glargine (LANTUS, SEMGLEE) 100 unit/mL injection 75 Units 75 Units subcutaneous Nightly ??? insulin lispro (HumaLOG, ADMELOG) 100 unit/mL injection 0-10 Units 0-10 Units subcutaneous TID with meals ??? insulin lispro (HumaLOG, ADMELOG) 100 unit/mL injection 0-5 Units 0-5 Units subcutaneous Nightly ??? insulin lispro (HumaLOG, ADMELOG) 100 unit/mL injection 10 Units 10 Units subcutaneous TID withmeals ??? pantoprazole (PROTONIX) 4 mg/mL injection 40 mg 40 mg intravenous Daily ??? potassium, sodium phosphates (PHOS-NAK) 280-160-250 mg packet 2 packet 2 packet oral TID AC ??? sodium bicarbonate 8.4 % (1 mEq/mL) injection - ADS Override Pull Continuous Medications: Current Facility-Administered Medications Medication Dose Route Frequency Last Admin PRN Medications: ??? acetaminophen, 650 mg, 650 mg at 02/11/23 0852 ??? dextrose, 15 g OR dextrose, 250 mL ??? glucagon, 1 mg ??? ondansetron, 4 mg ??? senna-docusate, 2 tablet ??? sodium bicarbonate, Objective Vitals: Most Recent : Vitals: 02/13/23 1800 BP: 128/78 Pulse: 109 Resp: 18 Temp: SpO2: 98% Hemodynamics: MAP (mmHg): [72-109] 94 Pulmonary Support: O2 Therapy: None (Room air) Intake/Output: Intake/Output Summary (Last 24 hours) at 02/13/20231944 Last data filed at 02/13/2023 1722 Gross per 24 hour Intake 480 ml Output 2575 ml Net -2095 ml Physical exam: CONSTITUTIONAL: No acute distress NEUROLOGICAL: Alert & oriented x4, moves all extremities well. CARDIOVASCULAR: Regular rate and rhythm,. Bilateral radial pulses 2+, bilateral dorsalis pedis pulses 2+, bilateral posterior tibial pulses 2+. No edema noted. RESPIRATORY: Lungs clear to auscultation. Respirations even and unlabored. GI: Abdomen soft, mild epigastric tenderness to palpation without guarding, distention or signs of peritonitis., non-distended. Normo-active bowel sounds noted. : Clear yellow urine. Voiding intermittently. MUSCULOSKELETAL: Moves all extremities . No contractures or visible atrophy noted/General atrophy noted. INTEGUMENTARY: Warm and dry. Intermittent ecchymosis noted. Lab/Radiology/Diagnostic Review: Recent Lab Data: Recent Labs Lab Units 02/13/23 0452 02/12/23 0337 02/11/23 0547 WBC K/cumm 7.1 11.5* 26.2* HEMOGLOBIN g/dL 12.2* 12.8* 14.7 HEMATOCRIT % 32.6* 33.6* 35.7* PLATELETS K/cumm 189 198 354 Recent Labs Lab Units 02/13/23 1815 02/13/23 1722 02/13/23 1621 02/13/23 0612 02/13/23 0544 02/12/23 2121 02/12/23 2003 02/12/23 1007 02/12/23 0959 02/12/23 0501 02/12/23 0451 SODIUM mmol/L -- -- -- -- 133* -- 128* -- -- -- 131* POTASSIUM PLASMA mmol/L -- -- -- -- 3.5 -- 3.2* -- 3.5 -- See Comment CHLORIDE mmol/L -- -- -- -- 103 -- 98 -- -- -- 105 CO2 mmol/L -- -- -- -- 21* -- 22 -- -- -- 18* BUN SERUM mg/dL -- -- -- -- 10 -- 10 -- -- -- 8 CREATININE mg/dL -- -- -- -- 0.60* -- 0.50* -- -- -- 0.60* GLUCOSE mg/dL -- -- -- -- 252* -- 202* -- -- -- 253* POC GLUCOSE MONITOR mg/dL 238* 276* 144 < > -- < > -- < > -- < > -- CALCIUM mg/dL -- -- -- -- 8.4* -- 8.3* -- -- -- 8.4* < > = values in this interval not displayed. Serum creatinine: 0.6 mg/dL (L) 02/13/23 0544 Estimated creatinine clearance: 151.3 mL/min (A) Lab Results Component Value Date CALCIUM 8.4 (L) 02/13/2023 PHOS 1.5 (L) 02/12/2023 Lab Results Component Value Date ALT 14 02/12/2023 AST 21 02/12/2023 ALKPHOS 72 02/12/2023 BILITOT 0.3 02/12/2023 Recent Imaging: CT Abdomen Pelvis W Contrast EXAM DESCRIPTION: CT ABDOMEN PELVIS W CONTRAST REASON FOR STUDY: Abdominal pain, acute, nonlocalized, pancreatitis c/o generalized weakness. He states that approximally from last 1-2 months he has been having symptoms for polydipsia, polyphagia, polyuria, he saw his primary care doctor who did lab work and was diagnosed with diabetes, was started on metformin and insulin 2 days ago, he came in today because he went to see his primary care doctor who did some lab work and found to have elevated lipase, elevated triglycerides and blood sugar. He is complaining of worsening of his weakness and fatigue in last 2-3 days along with abdominal pain and constipation denies any diarrhea. Denies any fever or chill. Denies any chest pain. He does not have any other comorbidity other than family history of diabetes. TECHNIQUE: CT scan of the abdomen and pelvis performed with intravenous and without oral contrast using helical scanning technique with dynamic intravenous contrast injection. Reconstructed coronal and sagittal MPR images reviewed. All images stored on PACS. Automated exposure control was used as a dose optimization technique for this examination. CONTRAST TYPE/DOSE: 100mL of IOVERSOL 350 MG IODINE/ML INTRAVENOUS SYRINGE injected via intravenous COMPARISON: Same day chest radiograph REFERENCE: Per ACR white paper recommendations, unless otherwise specified no follow-up imaging is recommended for incidental renal and adrenal lesions per consensus recommendations based on imaging criteria. Further lab evaluation could be pursued based on clinical findings. FINDINGS: There is a 0.5 cm ground-glass nodule in the left lower lobe on series 3, image 2. The heart is normal size without pericardial effusion. The aorta is normal in caliber and contour. The celiac trunk, superior mesenteric artery, and inferior mesenteric artery are patent. There is diffuse hepatic steatosis but no suspicious lesion in the liver. The portal vein, superior mesenteric vein, and splenic vein are patent. There is cholelithiasis in the gallbladder but no CT evidence of cholecystitis. There is no intrahepatic or extrahepatic biliary ductal dilation. There is mild stranding around the head of the pancreas the pancreatic parenchyma enhances normally. There is no dilation of the pancreatic duct. There is no drainable fluid collection. The spleen and bilateral adrenal glands are normal. The kidneys enhance symmetrically without hydronephrosis. There is a 0.3 cm hypoattenuating lesion in the left lower kidney, too small to characterize. There is diffuse wall thickening of the bladder. There is prostatomegaly. There is circumferential thickening of the distal esophagus. There is mild wall thickening of the 1st portion of the duodenum likely reactive to the pancreatitis. The remaining bowel loops are normal in caliber and contour without wall thickening. The appendix is normal. There is no free fluid, free air, or lymphadenopathy in the abdomen and pelvis. Mild degenerative changes are noted in the spine. No suspicious osseous lesions. IMPRESSION: Mild stranding around the head of the pancreas compatible with acute uncomplicated pancreatitis. No drainable fluid collection. Circumferential thickening of the distal esophagus likely secondary to reflux esophagitis. Cholelithiasis without CT evidence of cholecystitis. Hepatic steatosis. Circumferential bladder wall thickening likely secondary to chronic bladder outlet obstruction in the setting of prostatomegaly. 0.5 cm ground-glass nodule in the left lower lobe. Imaging follow-up should be guided by the Fleischner criteria included below. According to recent guidelines by the Fleischner Society, no follow up is required for incidental nodules less than 6 mm found on incomplete thoracic imaging on the basis of estimated low risk of malignancy. Note: These recommendations do not apply to patients with immunosuppression, or patients with known primary cancer. http://pubs.rsna.org/doi/pdf/10.1148/radiol.3008893866 THIS IS AN ELECTRONICALLY VERIFIED FINAL REPORT 02/10/2023 6:58 PM - Electronically signed by Teresa Rankin M.D. QX: QX Report ID: [id number] Reading Location: [id number] XR Chest 1 Vw Portable EXAM DESCRIPTION: XR CHEST 1 VIEW REASON FOR STUDY: dka Had blood work this morning. Sent by PCP for lipase 2400 and elevated WBC. Pt recently dx with diabetes. Mild abdominal. Given zofran by PCP for nausea today. TECHNIQUE: AP radiographic view(s) of the chest. COMPARISON: None FINDINGS: LUNGS: No focal opacity, pleural effusion, or pneumothorax. HEART/MEDIASTINUM: Cardiac silhouette normal in size. Mediastinal and hilar contours appear normal. LINES/TUBES: None. BONES: No acute osseous abnormality. IMPRESSION: No acute cardiopulmonary abnormality. THIS IS AN ELECTRONICALLY VERIFIED FINAL REPORT 02/10/2023 6:33 PM - Electronically signed by Teresa Rankin M.D. QX: QX Report ID: [id number] Reading Location: [id number] Assessment and Plan NEUROLOGICAL: #Acute pain secondary to acute pancreatitis - APAP PRN - Pain goal < 4/10 - Continue to closely monitor pain level and modify the regimen appropriately. CARDIOVASCULAR: Last TTE:none Hemodynamically stable, unsupported. No acute issues PULMONARY: No acute issues Currently on room air Maintain Sp02>92% Encourage pulmonary hygiene, IS,UOOB, PT/OT GASTROINTESTINAL: - Nutrition plan: NPO, D5 infusion per DKA protocol while NPO. - Bowel regimen: P.r.n. Pericolace - PUD ppx: Protonix # acute pancreatitis-POA # cholelithiasis-POA -likely secondary to hypertriglyceridemia VS DKA versus cholelithiasis - 02/10/2023 CT abdomen pelvis with contrast mild stranding around the head of the pancreas compatible with acute uncomplicated pancreatitis without drainable fluid collection., cholelithiasis without CT evidence of cholecystitis without ductal dilation. - presenting lipase 2481, presenting triglycerides 2329 -lactate normal, - minimal pain on exam - IV fluid per DKA protocol - pain control per above - NPO - repeat triglycerides in a.m. - continue to monitor ENDOCRINE: - Maintenance IV fluids: Per DKA protocol # hyperglycemia-POA # DKA-POA # type 2 diabetes-POA -last A1c 13.0 - on presentation labs consistent with DKA, sugars 325, anion gap 26, bicarb 9 beta hydroxybutyric acid 6.5, pH of 7.11 - insulin drip per protocol - NPO - medical educator - replete potassium and magnesium as indicated - Q 1 hour blood glucose checks - anion gap closed however bicarb still notably low, plan to continue insulin drip repeat BMP tonight, if bicarb improved will plan to transition off of insulin drip. - continue to monitor RENAL: #NAGMA- POA - likely secondary to DKA - BID BNP - DKA treatment as above - continue IV fluids - voiding - strict I&Os - avoid nephrotoxins, renally dose medications - trend BMP - replace lytes as indicated # hyponatremia-POA - likely secondary to DKA and hypovolemia - continue to monitor HEMATOLOGY: No acute issues - No s/s of bleeding, no indication for transfusion at this time. Continue to monitor CBC. - Transfuse for Hbg <7 - DVT prophylaxis: Lovenox, SCDs INFECTIOUS DISEASE: #Leukocytosis - Likely likely reactive - afebrile - monitor white count and trend fever curve - follow up culture data Antibiotics: -Zosyn (02/10) X1 Cultures: 02/10-blood cultures x2-no growth to date 02/1045-kyvfgtbmma-zhjgrojm MSK: # PT/OT ICU MANAGEMENT: DVT Prophylaxis: Lovenox PUD Prophylaxis: Protonix Surrogate Decision Maker: Goals of Care/Code Status: Full code Dispo: ICU Assessment and plan has been reviewed with attending, Crispin Critical Care Performed by: Robert Carcamo PA Authorized by: Robert Carcamo PA CRITICAL CARE: Team: [facility] Shift: AM Level of Billing: Subsequent Hospital Visit Level 3 My time spent with this patient was 65 minutes: Critical Provider Statement: I have seen and examined the patient on this day of service. I have reviewed and confirmed the history, physical exam, laboratory, and radiographic data as documented in the ICU note. I have reviewed and discussed my treatment plan with the patient's team and other medical/professional benefits sales consultant staff. This time was in addition to and separate from care provided by other practitioners on this day of service. ALFREDITO Cornell Cosigned by Dylan Roa MD at 02/14/2023 1:08 PM CDT * Robert Carcamo PA - 02/12/2023 6:47 AM CDTAssociated Order(s): Critical Care Post-Procedure Diagnose(s): Diabetic ketoacidosis without coma associated with other specified diabetes mellitus (HCC); Acute pancreatitis, unspecified complication status, unspecified pancreatitis type Images from the original note were not included. Critical Care Progress Note Hospital LOS: 2 ICU LOS: 1d 3h Subjective Patient is a 42 y.o. male presented to the ICU with chief complaint of ABD pain . RICKI Holcomb is a 42 y.o. male presenting to the ED c/o generalized weakness. He states that approximally from last 1-2 months he has been having symptoms for polydipsia, polyphagia, polyuria, he saw his primary care doctor who did lab work and was diagnosed with diabetes, was started on metforminand insulin 2 days ago, he came in today because he went to see his primary care doctor who did some lab work and found to have elevated lipase, elevated triglycerides and blood sugar. He is complaining of worsening of his weakness and fatigue in last 2-3 days along with abdominal pain and constipation denies any diarrhea. Denies any fever or chill. Denies any chest pain. Interval History: Blood sugar very volatile remained on insulin drip today Added fenofibrate for increasing hypertriglyceridemia Past Medical History: Diagnosis Date Diabetes mellitus (HCC) No past surgical history on file. Medications: Medications Prior to Admission Medication Sig Dispense Refill Last Dose insulin glargine 100 unit/mL (3 mL) pen for injection Inject 10 Units under the skin daily 6 mL 3 02/10/2023 metFORMIN XR (GLUCOPHAGE XR) 500 mg 24 hr tablet Take 1 tablet (500 mg total) by mouth 2 (two) times a day before breakfast and lunch 360 tablet 1 02/10/2023 blood glucose diagnostic (glucose blood) strip Use as directed to check blood glucose 4 times per day 100 each 11 blood-glucose meter kit Use as directed to check blood glucose four times per day 1 kit 0 fenofibrate nanocrystallized (TRICOR) 145 mg tablet Take 1 tablet (145 mg total) by mouth daily 90 tablet 3 lancets misc Use as directed to check blood glucose 4 times per day 200 each 3 pen needle, diabetic 31 gauge x 5/16 needle Use to inject 1-4 times daily as directed. 300 each 4 rosuvastatin (CRESTOR) 20 mg tablet Take 1 tablet (20 mg total) by mouth daily 90 tablet 3 Scheduled Medications Medication Dose Route Frequency enoxaparin (LOVENOX) syringe 40 mg 40 mg subcutaneous Daily-2100 insulin glargine (LANTUS, SEMGLEE) 100 unit/mL injection 50 Units 50 Units subcutaneous Nightly [Held by Provider] insulin lispro (HumaLOG, ADMELOG) 100 unit/mL injection 0-10 Units 0-10 Units subcutaneous TID with meals [Held by Provider] insulin lispro (HumaLOG, ADMELOG) 100 unit/mL injection 0-5 Units 0-5 Units subcutaneous Nightly [Held by Provider] insulin lispro (HumaLOG, ADMELOG) 100 unit/mL injection 15 Units 15 Units subcutaneous TID with meals pantoprazole (PROTONIX) 4 mg/mL injection 40 mg 40 mg intravenous Daily potassium, sodium phosphates (PHOS-NAK) 280-160-250 mg packet 2 packet 2 packet oral TID AC Continuous Medications: Current Facility-Administered Medications Medication Dose Route Frequency Last Admin insulin regular 0-30 Units/hr intravenous Titrated 4.5 Units/hr at 02/12/23 0609 PRN Medications: acetaminophen, 650 mg, 650 mg at 02/11/23 0852 dextrose, 15 g OR dextrose, 250 mL glucagon, 1 mg ondansetron, 4 mg senna-docusate, 2 tablet Objective Vitals: Most Recent : Vitals: 02/12/23 0500 BP: 117/88 Pulse: 113 Resp: 18 Temp: SpO2: 98% Hemodynamics: MAP (mmHg): [84-117] 97 Pulmonary Support: O2 Therapy: None (Room air) Intake/Output: Intake/Output Summary (Last 24 hours) at 02/12/2023 0647 Last data filed at 02/12/2023 0609 Gross per 24 hour Intake 3988.3 ml Output 5500 ml Net -1511.7 ml Physical exam: CONSTITUTIONAL: No acute distress NEUROLOGICAL: Alert & oriented x4, moves all extremities well. CARDIOVASCULAR: Regular rate and rhythm,. Bilateral radial pulses 2+, bilateral dorsalis pedis pulses 2+, bilateral posterior tibial pulses 2+. No edema noted. RESPIRATORY: Lungs clear to auscultation. Respirations even and unlabored. GI: Abdomen soft, mild epigastric tenderness to palpation without guarding, distention or signs of peritonitis., non-distended. Normo-active bowel sounds noted. : Clear yellow urine. Voiding intermittently. MUSCULOSKELETAL: Moves all extremities . No contractures or visible atrophy noted/General atrophy noted. INTEGUMENTARY: Warm and dry. Intermittent ecchymosis noted. Lab/Radiology/Diagnostic Review: Recent Lab Data: Recent Labs Lab Units 02/12/23 0337 02/11/23 0547 02/10/23 1522 WBC K/cumm 11.5* 26.2* 43.3* HEMOGLOBIN g/dL 12.8* 14.7 19.9* HEMATOCRIT % 33.6* 35.7* 43.2 PLATELETS K/cumm 198 354 447* Recent Labs Lab Units 02/12/23 0603 02/12/23 0501 02/12/23 0451 02/11/23201402/11/23 1922 02/11/23 0605 02/11/23 0547 SODIUM mmol/L -- -- 131* -- 126* -- 129* POTASSIUM PLASMA -- -- See Comment -- 3.3 -- 3.9 CHLORIDE mmol/L -- -- 105 -- 101 -- 105 CO2 mmol/L -- -- 18* -- 14* -- 12* BUN SERUM mg/dL -- -- 8 -- 5* -- 9 CREATININE mg/dL -- -- 0.60* -- 0.50* -- 0.70* GLUCOSE mg/dL -- -- 253* -- 109 -- 158 POC GLUCOSE MONITOR mg/dL 176 243* -- < > -- < > -- CALCIUM mg/dL -- -- 8.4* -- 8.4* -- 8.3* < > = values in this interval not displayed. Serum creatinine: 0.6 mg/dL (L) 02/12/23450 Estimated creatinine clearance: 151.3 mL/min (A) Lab Results Component Value Date CALCIUM 8.4 (L) 02/12/2023 PHOS 1.5 (L) 02/12/2023 Lab Results Component Value Date ALT See Comment 02/12/2023 AST See Comment 02/12/2023 ALKPHOS 78 02/12/2023 BILITOT 0.3 02/12/2023 Recent Imaging: CT Abdomen Pelvis W Contrast EXAM DESCRIPTION: CT ABDOMEN PELVIS W CONTRAST REASON FOR STUDY: Abdominal pain, acute, nonlocalized, pancreatitis c/o generalized weakness. He states that approximally from last 1-2 months he has been having symptoms for polydipsia, polyphagia, polyuria, he saw his primary care doctor who did lab work and was diagnosed with diabetes, was started on metformin and insulin 2 days ago, he came in today because he went to see his primary care doctor who did some lab work and found to have elevated lipase, elevated triglycerides and blood sugar. He is complaining of worsening of his weakness and fatigue in last 2-3 days along with abdominal pain and constipation denies any diarrhea. Denies any fever or chill. Denies any chest pain. He does not have any other comorbidity other than family history of diabetes. TECHNIQUE: CT scan of the abdomen and pelvis performed with intravenous and without oral contrast using helical scanning technique with dynamic intravenous contrast injection. Reconstructed coronal and sagittal MPR images reviewed. All images stored on PACS. Automated exposure control was used as a dose optimization technique for this examination. CONTRAST TYPE/DOSE: 100mL of IOVERSOL 350 MG IODINE/ML INTRAVENOUS SYRINGE injected via intravenous COMPARISON: Same day chest radiograph REFERENCE: Per ACR white paper recommendations, unless otherwise specified no follow-up imaging is recommended for incidental renal and adrenal lesions per consensus recommendations based on imaging criteria. Further lab evaluation could be pursued based on clinical findings. FINDINGS: There is a 0.5 cm ground-glass nodule in the left lower lobe on series 3, image 2. The heart is normal size without pericardial effusion. The aorta is normal in caliber and contour. The celiac trunk, superior mesenteric artery, and inferior mesenteric artery are patent. There is diffuse hepatic steatosis but no suspicious lesion in the liver. The portal vein, superior mesenteric vein, and splenic vein are patent. There is cholelithiasis in the gallbladder but no CT evidence of cholecystitis. There is no intrahepatic or extrahepatic biliary ductal dilation. There is mild stranding around the head of the pancreas the pancreatic parenchyma enhances normally. There is no dilation of the pancreatic duct. There is no drainable fluid collection. The spleen and bilateral adrenal glands are normal. The kidneys enhance symmetrically without hydronephrosis. There is a 0.3 cm hypoattenuating lesion in the left lower kidney, too small to characterize. There is diffuse wall thickening of the bladder. There is prostatomegaly. There is circumferential thickening of the distal esophagus. There is mild wall thickening of the 1st portion of the duodenum likely reactive to the pancreatitis. The remaining bowel loops are normal in caliber and contour without wall thickening. The appendix is normal. There is no free fluid, free air, or lymphadenopathy in the abdomen and pelvis. Mild degenerative changes are noted in the spine. No suspicious osseous lesions. IMPRESSION: Mild stranding around the head of the pancreas compatible with acute uncomplicated pancreatitis. No drainable fluid collection. Circumferential thickening of the distal esophagus likely secondary to reflux esophagitis. Cholelithiasis without CT evidence of cholecystitis. Hepatic steatosis. Circumferential bladder wall thickening likely secondary to chronic bladder outlet obstruction in the setting of prostatomegaly. 0.5 cm ground-glass nodule in the left lower lobe. Imaging follow-up should be guided by the Fleischner criteria included below. According to recent guidelines by the Fleischner Society, no follow up is required for incidental nodules less than 6 mm found on incomplete thoracic imaging on the basis of estimated low risk of malignancy. Note: These recommendations do not apply to patients with immunosuppression, or patients with known primary cancer. http://pubs.rsna.org/doi/pdf/10.1148/radiol.1872615943 THIS IS AN ELECTRONICALLY VERIFIED FINAL REPORT 02/10/2023 6:58 PM - Electronically signed by Teresa Rankin M.D. QX: QX Report ID: [id number] Reading Location: [id number] XR Chest 1 Vw Portable EXAM DESCRIPTION: XR CHEST 1 VIEW REASON FOR STUDY: dka Had blood work this morning. Sent by PCP for lipase 2400 and elevated WBC. Pt recently dx with diabetes. Mild abdominal. Given zofran by PCP for nausea today. TECHNIQUE: AP radiographic view(s) of the chest. COMPARISON: None FINDINGS: LUNGS: No focal opacity, pleural effusion, or pneumothorax. HEART/MEDIASTINUM: Cardiac silhouette normal in size. Mediastinal and hilar contours appear normal. LINES/TUBES: None. BONES: No acute osseous abnormality. IMPRESSION: No acute cardiopulmonary abnormality. THIS IS AN ELECTRONICALLY VERIFIED FINAL REPORT 02/10/2023 6:33 PM - Electronically signed by Teresa Rankin M.D. QX: QX Report ID: [id number] Reading Location: [place] [id number] Assessment and Plan NEUROLOGICAL: #Acute pain secondary to acute pancreatitis - APAP PRN - Pain goal < 4/10 - Continue to closely monitor pain level and modify the regimen appropriately. CARDIOVASCULAR: Last TTE:none Hemodynamically stable, unsupported. No acute issues PULMONARY: No acute issues Currently on room air Maintain Sp02>92% Encourage pulmonary hygiene, IS,UOOB, PT/OT GASTROINTESTINAL: - Nutrition plan: NPO, D5 infusion per DKA protocol while NPO. - Bowel regimen: P.r.n. Pericolace - PUD ppx: Protonix # acute pancreatitis-POA # cholelithiasis-POA -likely secondary to hypertriglyceridemia VS DKA versus cholelithiasis - 02/10/2023 CT abdomen pelvis with contrast mild stranding around the head of the pancreas compatible with acute uncomplicated pancreatitis without drainable fluid collection., cholelithiasis without CT evidence of cholecystitis without ductal dilation. - presenting lipase 2481, presenting triglycerides 2329 -lactate normal, - minimal pain on exam - IV fluid per DKA protocol - pain control per above - NPO - repeat triglycerides in a.m. - continue to monitor ENDOCRINE: - Maintenance IV fluids: Per DKA protocol # hyperglycemia-POA # DKA-POA # type 2 diabetes-POA -last A1c 13.0 - on presentation labs consistent with DKA, sugars 325, anion gap 26, bicarb 9 beta hydroxybutyric acid 6.5, pH of 7.11 - insulin drip per protocol - NPO - medical educator - replete potassium and magnesium as indicated - Q 1 hour blood glucose checks - anion gap closed however bicarb still notably low, plan to continue insulin drip repeat BMP tonight, if bicarb improved will plan to transition off of insulin drip. - continue to monitor RENAL: #NAGMA- POA - likely secondary to DKA - BID BNP - DKA treatment as above - continue IV fluids - voiding - strict I&Os - avoid nephrotoxins, renally dose medications - trend BMP - replace lytes as indicated # hyponatremia-POA - likely secondary to DKA and hypovolemia - continue to monitor HEMATOLOGY: No acute issues - No s/s of bleeding, no indication for transfusion at this time. Continue to monitor CBC. - Transfuse for Hbg <7 - DVT prophylaxis: Lovenox, SCDs INFECTIOUS DISEASE: #Leukocytosis - Likely likely reactive - afebrile - monitor white count and trend fever curve - follow up culture data Antibiotics: -Zosyn (02/10) X1 Cultures: 02/10-blood cultures x2-no growth to date 02/1028-sqixgqvtmt-qwfwupds MSK: # PT/OT ICU MANAGEMENT: DVT Prophylaxis: Lovenox PUD Prophylaxis: Protonix Surrogate Decision Maker: Goals of Care/Code Status: Full code Dispo: ICU Assessment and plan has been reviewed with attending, Crispin Critical Care Performed by: Robert Carcamo PA Authorized by: Robert Carcamo PA CRITICAL CARE: Team: [facility] Shift: AM Level of Billing: Critical Care My time spent with this patient was 65 minutes: Critical Provider Statement: I have seen and examined the patient on this day of service. I have reviewed and confirmed the history, physical exam, laboratory and radiologic data as documented in thesigned ICU note. I have reviewed and discussed my treatment plan with the ICU team and other medical/professional benefits sales consultant staff, making frequent assessments and decisions regarding this patient's complex medical care. Critical Care time was exclusive of time spent performing separately billed procedures, treating other patients, and teaching. This time was in addition to and separate from critical care provided by other practitioners in my group on this day of service. Critical Care was necessary to treat or prevent imminent or life-threatening deterioration of the following conditions: DKA/Hyperglycemia Acid-base disturbance This time was spent by me doing the following: Glycemic control I spent time reviewing and interpreting data from bedside monitors, laboratory results, and imaging, I spent time discussing the management of this critically ill patient with consultants and the medical staff and I spent time documenting in the medical record ALFREDITO Cornell Cosigned by Dylan Roa MD at 02/13/2023 7:41 AM CDT * Argentina Johnston - 02/11/2023 1:07 PM CDT 02/11/23 1300 Time Spent Start Time 0905 Patient Spiritual Assessment Spirituality Assessed Yes Caodaism Affiliation Church Active in Confucianist (Receptive to pastoral care) Clinical Encounter Type Visited With Patient Interventions Interventions Active listening Pt processing new diabetes diagnosis. Pt stated he has no spiritual needs at this time. Provided ptwith general information on Advance Directives;pt not interested in pursuing POA-HC at this time. * Grace Byrd RN - 02/11/2023 12:03 PM CDT CM Initial Assessment Interview Note Information Obtained From: Patient (02/11/23 1200) Admission Source: Patient to ED from home via POV Impression: 02/10/2023 Patient presented to the ED from home with c/o generalized weakness. He states that approximally from last 1-2 months he has been having symptoms for polydipsia, polyphagia, polyuria, he saw his primary care doctor who did lab work and was diagnosed with diabetes, was started on metformin and insulin 2 days ago, he came in today because he went to see his primary care doctorwho did some lab work and found to have elevated lipase, elevated triglycerides and blood sugar. Heis complaining of worsening of his weakness and fatigue in last 2-3 days along with abdominal pain and constipation denies any diarrhea. Denies any fever or chill. Denies any chest pain. Plan Includes: Blood glucose management, GI management. IV fluids and Insulin gtt. Primary Source of Transportation: POV Does the patient need discharge transport arranged?: No (02/11/23 1200) Health Insurance Coverage: [facility] Pharmacy: [id number] - [place], [place] - [address] [facility] [id number] Primary Care Provider: Lemuel Frost MD Prior to Admission: Primary Caregiver: Self Who does the patient or legal guardian want to receive education instruction and discharge plans for after care assistance?: Decline Support System: Spouse/Significant Other Support system contact info (name, phone, availablity): Chayito Cortez Significant Other Meghaneverett Home Care Services: No Durable Medical Equipment: None Living Arrangements: Spouse/significant other Type of Residence: Private residence Steps in home?: Yes, Inside home Number of steps inside: 12 steps (To basement) (02/11/23 0300) SDOH: Transportation: In the past 12 months, has lack of transportation kept you from medical appointments or from getting medications?: No In the past 12 months, has lack of transportation kept you from meetings, work, or from getting things needed for daily living?: No (02/11/23 120) Financial Resource: How hard is it for you to pay for the very basics like food, housing, medical care, and heating?: Not hard at all (02/11/23 120) Housing: In the last 12 months, was there a time when you were not able to pay the mortgage or rent on time?: No In the last 12 months, how many places have you lived?: 1 In the last 12 months, was there a time when you did not have a steady place to sleep or slept in ashelter (including now)?: No (02/11/23 1203) Social Connections: In a typical week, how many times do you talk on the phone with family, friends, or neighbors?: More than three times a week How often do you get together with friends or relatives?: More than three times a week How often do you attend sikh or voodoo services?: More than 4 times per year Do you belong to any clubs or organizations such as sikh groups, unions, fraternal or athletic groups, or school groups?: No How often do you attend meetings of the clubs or organizations you belong to?: Never Are you , , , , never , or living with a partner?: Never (02/11/23 120) Food Insecurity: Within the past 12 months, you worried that your food would run out before you got the money to buymore.: Never true Within the past 12 months, the food you bought just didn't last and you didn't have money to get more.: Never true (02/11/23 1203) Potential discharge needs include: CM will continue to monitor for any additional D/C needs. Home Health: Social work (02/11/23 1200) Dialysis: No Behavioral Health Services: Behavioral Health Services: No (02/11/23 1200) Patient expects to be Discharged to: Private residence, (02/11/23 1200) Additional Information: Patient lives at home with Master. Plans to return home at discharge. Diagnosed with DM 3 days ago. Patient's Identified Problem/Goal: DKA, pancreatitis. Goal: Stabilize Blood glucose and GI status. Return home. [employer] Riveter to see patient. Problem: Ensure acute medical needs are met and that patient has a safe discharge plan. Goal: Secure a discharge plan that patient/family are agreeable with and ensure patient has continuum of care. Case management will follow for discharge planning and send referrals as needed. Goals include: To assure continuity of care, To maximize coping skills, To assure patient is in a safe environment and To assure access to community resources. Plan includes: 1. Collaboration with patient, MD, direct care nurse, Youth Advocate, and other members of the health care team to assure needed interventions completed. 2. Return patient to optimal level of self-care post discharge. 3. Physical Therapy Nurse will follow for Discharge Planning - interventions as needed 4. Anticipated level of care at discharge 5. Planned Discharge Disposition Grace Byrd RN * Robert Carcamo PA - 02/11/2023 9:37 AM CDTAssociated Order(s): Critical Care Post-Procedure Diagnose(s): Diabetic ketoacidosis without coma associated with other specified diabetes mellitus (HCC); Acute pancreatitis, unspecified complication status, unspecified pancreatitis type Images from the original note were not included. Critical Care Progress Note Hospital LOS: 1 ICU LOS: 6h Subjective Patient is a 42 y.o. male presented to the ICU with chief complaint of ABD pain . HPI Chadwick Holcomb is a 42 y.o. male presenting to the ED c/o generalized weakness. He states that approximally from last 1-2 months he has been having symptoms for polydipsia, polyphagia, polyuria, he saw his primary care doctor who did lab work and was diagnosed with diabetes, was started on metforminand insulin 2 days ago, he came in today because he went to see his primary care doctor who did some lab work and found to have elevated lipase, elevated triglycerides and blood sugar. He is complaining of worsening of his weakness and fatigue in last 2-3 days along with abdominal pain and constipation denies any diarrhea. Denies any fever or chill. Denies any chest pain. Interval History: -2 g of Mag -20 mEq potassium -PT/OT ordered -bowel regimen ordered Past Medical History: Diagnosis Date Diabetes mellitus (HCC) No past surgical history on file. Medications: Medications Prior to Admission Medication Sig Dispense Refill Last Dose insulin glargine 100 unit/mL (3 mL) pen for injection Inject 10 Units under the skin daily 6 mL 3 02/10/2023 metFORMIN XR (GLUCOPHAGE XR) 500 mg 24 hr tablet Take 1 tablet (500 mg total) by mouth 2 (two) times a day before breakfast and lunch 360 tablet 1 02/10/2023 blood glucose diagnostic (glucose blood) strip Use as directed to check blood glucose 4 times per day 100 each 11 blood-glucose meter kit Use as directed to check blood glucose four times per day 1 kit 0 fenofibrate nanocrystallized (TRICOR) 145 mg tablet Take 1 tablet (145 mg total) by mouth daily 90 tablet 3 lancets misc Use as directed to check blood glucose 4 times per day 200 each 3 pen needle, diabetic 31 gauge x 5/16 needle Use to inject 1-4 times daily as directed. 300 each 4 rosuvastatin (CRESTOR) 20 mg tablet Take 1 tablet (20 mg total) by mouth daily 90 tablet 3 Scheduled Medications Medication Dose Route Frequency enoxaparin (LOVENOX) syringe 40 mg 40 mg subcutaneous Daily-2100 magnesium sulfate 2 g/50 mL in water (premix) 2 g 2 g intravenous Once pantoprazole (PROTONIX) 4 mg/mL injection 40 mg 40 mg intravenous Daily potassium chloride ER (KLOR-CON) extended release tablet 20 mEq 20 mEq oral Once Continuous Medications: Current Facility-Administered Medications Medication Dose Route Frequency Last Admin dextrose 5% 100 mL/hr intravenous Continuous 100 mL/hr at 02/11/23 0652 insulin regular 0-30 Units/hr intravenous Titrated 6.5 Units/hr at 02/11/23 0853 sodium chloride 0.45% 150 mL/hr intravenous Continuous 150 mL/hr at 02/11/23 0256 PRN Medications: acetaminophen, 650 mg, 650 mg at 02/11/23 0852 dextrose, 250 mL ondansetron, 4 mg Objective Vitals: Most Recent : Vitals: 02/11/23 0800 BP: 128/70 Pulse: 100 Resp: 17 Temp: SpO2: 96% Hemodynamics: MAP (mmHg): [88-131] 89 Pulmonary Support: O2 Therapy: None (Room air) Intake/Output: Intake/Output Summary (Last 24 hours) at 02/11/2023 0938 Last data filed at 02/11/2023 0845 Gross per 24 hour Intake 2246.55 ml Output 3800 ml Net -1553.45 ml Physical exam: CONSTITUTIONAL: No acute distress NEUROLOGICAL: Alert & oriented x4, moves all extremities well. CARDIOVASCULAR: Regular rate and rhythm,. Bilateral radial pulses 2+, bilateral dorsalis pedis pulses 2+, bilateral posterior tibial pulses 2+. No edema noted. RESPIRATORY: Lungs clear to auscultation. Respirations even and unlabored. GI: Abdomen soft, mild epigastric tenderness to palpation without guarding, distention or signs of peritonitis., non-distended. Normo-active bowel sounds noted. : Clear yellow urine. Voiding intermittently. MUSCULOSKELETAL: Moves all extremities . No contractures or visible atrophy noted/General atrophy noted. INTEGUMENTARY: Warm and dry. Intermittent ecchymosis noted. Lab/Radiology/Diagnostic Review: Recent Lab Data: Recent Labs Lab Units 02/11/23 0547 02/10/23 1522 02/10/23 1131 WBC K/cumm 26.2* 43.3* 38.2* HEMOGLOBIN g/dL 14.7 19.9* 20.6* HEMATOCRIT % 35.7* 43.2 44.3 PLATELETS K/cumm 354 447* 454* Recent Labs Lab Units 02/11/23 0900 02/11/23 0707 02/11/23 0605 02/11/23 0547 02/10/23 2353 02/[id number] SODIUM mmol/L -- -- -- 129* -- 123* -- 122* POTASSIUM PLASMA mmol/L -- -- -- 3.9 -- 4.0 -- 4.2 CHLORIDE mmol/L -- -- -- 105 -- 98 -- 94* CO2 mmol/L -- -- -- 12* -- 7* -- 7* BUN SERUM mg/dL -- -- -- 9 -- 11 -- 12 CREATININE mg/dL -- -- -- 0.70* -- 0.70* -- 0.70* GLUCOSE mg/dL -- -- -- 158 -- 190 -- 240* POC GLUCOSE MONITOR mg/dL 143 145 150 -- < > -- < > -- CALCIUM mg/dL -- -- -- 8.3* -- 8.3* -- 8.2* < > = values in this interval not displayed. Serum creatinine: 0.7 mg/dL (L) 02/11/23 0547 Estimated creatinine clearance: 129.7 mL/min (A) Lab Results Component Value Date CALCIUM 8.3 (L) 02/11/2023 PHOS 2.1 (L) 02/11/2023 Lab Results Component Value Date ALT 18 02/10/2023 AST 21 02/10/2023 ALKPHOS 127 02/10/2023 BILITOT 0.2 02/10/2023 Recent Imaging: CT Abdomen Pelvis W Contrast EXAM DESCRIPTION: CT ABDOMEN PELVIS W CONTRAST REASON FOR STUDY: Abdominal pain, acute, nonlocalized, pancreatitis c/o generalized weakness. He states that approximally from last 1-2 months he has been having symptoms for polydipsia, polyphagia, polyuria, he saw his primary care doctor who did lab work and was diagnosed with diabetes, was started on metformin and insulin 2 days ago, he came in today because he went to see his primary care doctor who did some lab work and found to have elevated lipase, elevated triglycerides and blood sugar. He is complaining of worsening of his weakness and fatigue in last 2-3 days along with abdominal pain and constipation denies any diarrhea. Denies any fever or chill. Denies any chest pain. He does not have any other comorbidity other than family history of diabetes. TECHNIQUE: CT scan of the abdomen and pelvis performed with intravenous and without oral contrast using helical scanning technique with dynamic intravenous contrast injection. Reconstructed coronal and sagittal MPR images reviewed. All images stored on PACS. Automated exposure control was used as a dose optimization technique for this examination. CONTRAST TYPE/DOSE: 100mL of IOVERSOL 350 MG IODINE/ML INTRAVENOUS SYRINGE injected via intravenous COMPARISON: Same day chest radiograph REFERENCE: Per ACR white paper recommendations, unless otherwise specified no follow-up imaging is recommended for incidental renal and adrenal lesions per consensus recommendations based on imaging criteria. Further lab evaluation could be pursued based on clinical findings. FINDINGS: There is a 0.5 cm ground-glass nodule in the left lower lobe on series 3, image 2. The heart is normal size without pericardial effusion. The aorta is normal in caliber and contour. The celiac trunk, superior mesenteric artery, and inferior mesenteric artery are patent. There is diffuse hepatic steatosis but no suspicious lesion in the liver. The portal vein, superior mesenteric vein, and splenic vein are patent. There is cholelithiasis in the gallbladder but no CT evidence of cholecystitis. There is no intrahepatic or extrahepatic biliary ductal dilation. There is mild stranding around the head of the pancreas the pancreatic parenchyma enhances normally. There is no dilation of the pancreatic duct. There is no drainable fluid collection. The spleen and bilateral adrenal glands are normal. The kidneys enhance symmetrically without hydronephrosis. There is a 0.3 cm hypoattenuating lesion in the left lower kidney, too small to characterize. There is diffuse wall thickening of the bladder. There is prostatomegaly. There is circumferential thickening of the distal esophagus. There is mild wall thickening of the 1st portion of the duodenum likely reactive to the pancreatitis. The remaining bowel loops are normal in caliber and contour without wall thickening. The appendix is normal. There is no free fluid, free air, or lymphadenopathy in the abdomen and pelvis. Mild degenerative changes are noted in the spine. No suspicious osseous lesions. IMPRESSION: Mild stranding around the head of the pancreas compatible with acute uncomplicated pancreatitis. No drainable fluid collection. Circumferential thickening of the distal esophagus likely secondary to reflux esophagitis. Cholelithiasis without CT evidence of cholecystitis. Hepatic steatosis. Circumferential bladder wall thickening likely secondary to chronic bladder outlet obstruction in the setting of prostatomegaly. 0.5 cm ground-glass nodule in the left lower lobe. Imaging follow-up should be guided by the Fleischner criteria included below. According to recent guidelines by the Fleischner Society, no follow up is required for incidental nodules less than 6 mm found on incomplete thoracic imaging on the basis of estimated low risk of malignancy. Note: These recommendations do not apply to patients with immunosuppression, or patients with known primary cancer. http://pubs.rsna.org/doi/pdf/10.1148/radiol.2895713565 THIS IS AN ELECTRONICALLY VERIFIED FINAL REPORT 02/10/2023 6:58 PM - Electronically signed by Teresa Rankin M.D. QX: QX Report ID: [id number] Reading Location: [id number] XR Chest 1 Vw Portable EXAM DESCRIPTION: XR CHEST 1 VIEW REASON FOR STUDY: dka Had blood work this morning. Sent by PCP for lipase 2400 and elevated WBC. Pt recently dx with diabetes. Mild abdominal. Given zofran by PCP for nausea today. TECHNIQUE: AP radiographic view(s) of the chest. COMPARISON: None FINDINGS: LUNGS: No focal opacity, pleural effusion, or pneumothorax. HEART/MEDIASTINUM: Cardiac silhouette normal in size. Mediastinal and hilar contours appear normal. LINES/TUBES: None. BONES: No acute osseous abnormality. IMPRESSION: No acute cardiopulmonary abnormality. THIS IS AN ELECTRONICALLY VERIFIED FINAL REPORT 02/10/2023 6:33 PM - Electronically signed by Teresa Rankin M.D. QX: QX Report ID: [id number] Reading Location: [id number] Assessment and Plan NEUROLOGICAL: #Acute pain secondary to acute pancreatitis - APAP PRN - Pain goal < 4/10 - Continue to closely monitor pain level and modify the regimen appropriately. CARDIOVASCULAR: Last TTE:none Hemodynamically stable, unsupported. No acute issues PULMONARY: No acute issues Currently on room air Maintain Sp02>92% Encourage pulmonary hygiene, IS,UOOB, PT/OT GASTROINTESTINAL: - Nutrition plan: NPO, D5 infusion per DKA protocol while NPO. - Bowel regimen: P.r.n. Pericolace - PUD ppx: Protonix # acute pancreatitis-POA # cholelithiasis-POA -likely secondary to hypertriglyceridemia VS DKA versus cholelithiasis - 02/10/2023 CT abdomen pelvis with contrast mild stranding around the head of the pancreas compatible with acute uncomplicated pancreatitis without drainable fluid collection., cholelithiasis without CT evidence of cholecystitis without ductal dilation. - presenting lipase 2481, presenting triglycerides 2329 -lactate normal, - minimal pain on exam - IV fluid per DKA protocol - pain control per above - NPO - repeat triglycerides in a.m. - continue to monitor ENDOCRINE: - Maintenance IV fluids: Per DKA protocol # hyperglycemia-POA # DKA-POA # type 2 diabetes-POA -last A1c 13.0 - on presentation labs consistent with DKA, sugars 325, anion gap 26, bicarb 9 beta hydroxybutyric acid 6.5, pH of 7.11 - insulin drip per protocol - NPO - medical educator - replete potassium and magnesium as indicated - Q 1 hour blood glucose checks - anion gap closed however bicarb still notably low, plan to continue insulin drip repeat BMP tonight, if bicarb improved will plan to transition off of insulin drip. - continue to monitor RENAL: #NAGMA- POA - likely secondary to DKA - BID BNP - DKA treatment as above - continue IV fluids - voiding - strict I&Os - avoid nephrotoxins, renally dose medications - trend BMP - replace lytes as indicated # hyponatremia-POA - likely secondary to DKA and hypovolemia - continue to monitor HEMATOLOGY: No acute issues - No s/s of bleeding, no indication for transfusion at this time. Continue to monitor CBC. - Transfuse for Hbg <7 - DVT prophylaxis: Lovenox, SCDs INFECTIOUS DISEASE: #Leukocytosis - Likely likely reactive - afebrile - monitor white count and trend fever curve - follow up culture data Antibiotics: -Zosyn (02/10) X1 Cultures: 02/10-blood cultures x2-no growth to date 02/1039-[id number] MSK: # PT/OT ICU MANAGEMENT: DVT Prophylaxis: Lovenox PUD Prophylaxis: Protonix Surrogate Decision Maker: Goals of Care/Code Status: Full code Dispo: ICU Assessment and plan has been reviewed with attending, Crispin Critical Care Performed by: Robert Carcamo PA Authorized by: Robert Carcamo PA CRITICAL CARE: Team: B Shift: AM Level of Billing: Critical Care My time spent with this patient was 70 minutes: Critical Provider Statement: I have seen and examined the patient on this day of service. I have reviewed and confirmed the history, physical exam, laboratory and radiologic data as documented in thesigned ICU note. I have reviewed and discussed my treatment plan with the ICU team and other medical/professional benefits sales consultant staff, making frequent assessments and decisions regarding this patient's complex medical care. Critical Care time was exclusive of time spent performing separately billed procedures, treating other patients, and teaching. This time was in addition to and separate from critical care provided by other practitioners in my group on this day of service. Critical Care was necessary to treat or prevent imminent or life-threatening deterioration of the following conditions: Acute pancreatitis Acid-base disturbance and Diabetic Ketoacidosis This time was spent by me doing the following: Insulin drip Glycemic control ALFREDITO Cornell Cosigned by Dylan Roa MD at 02/13/2023 7:41 AM CDT documented in this encounter H&P Notes * Juvenal Anderson MD - 02/11/2023 3:42 AM CDT ICU History and Physical Team: Community PM SUBJECTIVE Patient is a 42 y.o. male presented to the ICU with chief complaint of weakness. HPI: Chadwick Holcomb is a 42 y.o. male presenting to the ED c/o generalized weakness. He states that approximally from last 1-2 months he has been having symptoms for polydipsia, polyphagia, polyuria, he saw his primary care doctor who did lab work and was diagnosed with diabetes, was started on metforminand insulin 2 days ago, he came in today because he went to see his primary care doctor who did some lab work and found to have elevated lipase, elevated triglycerides and blood sugar. He is complaining of worsening of his weakness and fatigue in last 2-3 days along with abdominal pain and constipation denies any diarrhea. Denies any fever or chill. Denies any chest pain. He does not have any other comorbidity other than family history of diabetes. PCP: Lemuel Frost MD Past Medical History: Diagnosis Date Diabetes mellitus (HCC) No past surgical history on file. Medications Prior to Admission Medication Sig Dispense Refill Last Dose insulin glargine 100 unit/mL (3 mL) pen for injection Inject 10 Units under the skin daily 6 mL 3 02/10/2023 metFORMIN XR (GLUCOPHAGE XR) 500 mg 24 hr tablet Take 1 tablet (500 mg total) by mouth 2 (two) times a day before breakfast and lunch 360 tablet 1 02/10/2023 blood glucose diagnostic (glucose blood) strip Use as directed to check blood glucose 4 times per day 100 each 11 blood-glucose meter kit Use as directed to check blood glucose four times per day 1 kit 0 fenofibrate nanocrystallized (TRICOR) 145 mg tablet Take 1 tablet (145 mg total) by mouth daily 90 tablet 3 lancets misc Use as directed to check blood glucose 4 times per day 200 each 3 pen needle, diabetic 31 gauge x 5/16 needle Use to inject 1-4 times daily as directed. 300 each 4 rosuvastatin (CRESTOR) 20 mg tablet Take 1 tablet (20 mg total) by mouth daily 90 tablet 3 No Known Allergies Social History Tobacco Use Smoking status: Never Smokeless tobacco: Not on file Substance and Sexual Activity Drug use: Never Sexual activity: Defer Alcohol Use: Unknown (10/09/2021) AUDIT-C Frequency of Alcohol Consumption: Monthly or less Average Number of Drinks: 1 or 2 Frequency of Binge Drinking: Not on file Family History Problem Relation Age of Onset Cancer Mother Diabetes Mother No Known Problems Father Hypertension Brother Review of Systems: Review of Systems Constitutional: Positive for fatigue. Gastrointestinal: Positive for nausea. Endocrine: Positive for polydipsia and polyuria. All other systems reviewed and are negative. Vitals: Most Recent : Vitals: 02/11/23 0230 BP: 127/79 Pulse: 107 Resp: 17 Temp: SpO2: 97% Hemodynamics: MAP (mmHg): [125-131] 125 Pulmonary Support: O2 Therapy: None (Room air) Intake/Output: Intake/Output Summary (Last 24 hours) at 02/11/2023 0342 Last data filed at 02/10/2023 2310 Gross per 24 hour Intake 100 ml Output 1850 ml Net -1750 ml OBJECTIVE Physical exam: Physical Exam HENT: Head: Normocephalic and atraumatic. Mouth/Throat: Mouth: Mucous membranes are dry. Eyes: Pupils: Pupils are equal, round, and reactive to light. Cardiovascular: Rate and Rhythm: Tachycardia present. Pulmonary: Effort: Pulmonary effort is normal. Breath sounds: Normal breath sounds. Abdominal: General: Abdomen is flat. There is no distension. Tenderness: There is no abdominal tenderness. Neurological: General: No focal deficit present. Mental Status: He is alert. Lab/Radiology/Diagnostic Review: Laboratory review: Lab results in the last 24 hours: Recent Results (from the past 24 hour(s)) Lipase Collection Time: 02/10/23 11:31 AM Result Value Ref Range Lipase 2,481 (H) 10 - 99 Units/L CBC with auto differential Collection Time: 02/10/23 11:31 AM Result Value Ref Range WBC 38.2 (H) 3.8 - 9.9 K/cumm Hgb 20.6 (Critical) 13.0 - 17.5 g/dL Hct 44.3 38.9 - 50.3 % Plt 454 (H) 150 - 400 K/cumm MPV 9.3 9.1 - 12.3 fL RBC 5.14 4.30 - 5.80 M/cumm MCV 86.2 81.3 - 96.4 fL MCH 40.1 (H) 27.1 - 33.3 pg MCHC 46.5 (H) 32.3 - 35.7 g/dL RDW CV 13.1 11.1 - 14.9 % RDW SD 40.7 35.7 - 48.1 fL NRBC abs 0.02 (H) 0.00 - 0.01 K/cumm Comprehensive metabolic panel Collection Time: 02/10/23 11:31 AM Result Value Ref Range Sodium 129 (L) 135 - 145 mmol/L Potassium, pl 4.8 3.3 - 4.9 mmol/L Chloride 94 (L) 97 - 110 mmol/L CO2 9 (L) 22 - 32 mmol/L Anion gap 26 (H) 2 - 15 mmol/L BUN 12 8 - 25 mg/dL Creatinine 1.00 0.80 - 1.30 mg/dL Glucose 325 (H) 70 - 199 mg/dL Calcium 9.7 8.5 - 10.3 mg/dL Bilirubin, total 0.3 0.1 - 1.2 mg/dL Protein, pl 8.9 (H) 6.5 - 8.5 g/dL Albumin 4.3 3.5 - 5.0 g/dL Alk phos 126 40 - 130 Units/L ALT 18 7 - 55 Units/L AST 20 10 - 50 Units/L Differential, auto Collection Time: 02/10/23 11:31 AM Result Value Ref Range Neutrophil abs 29.4 (H) 1.7 - 6.5 K/cumm Imm gran abs 1.1 (H) 0.0 - 0.1 K/cumm Lymphocyte abs 2.5 0.8 - 3.3 K/cumm Monocyte abs 5.1 (H) 0.2 - 0.8 K/cumm Eosinophil abs 0.1 0.0 - 0.5 K/cumm Basophil abs 0.0 0.0 - 0.1 K/cumm Neutrophil pct 76.9 % Imm gran pct 2.8 % Lymphocyte pct 6.5 % Monocyte pct 13.4 % Eosinophil pct 0.3 % Basophil pct 0.1 % eGFR Collection Time: 02/10/23 11:31 AM Result Value Ref Range eGFR 95 mL/min/1.73 m2 Ethanol Collection Time: 02/10/23 3:21 PM Result Value Ref Range Ethanol <10 <=10 mg/dL Hemoglobin A1c Collection Time: 02/10/23 3:21 PM Result Value Ref Range Hgb A1C 13.0 (H) 4.0 - 5.6 % Estimated Average Glucose 326 mg/dL CBC with auto differential Collection Time: 02/10/23 3:22 PM Result Value Ref Range WBC 43.3 (H) 3.8 - 9.9 K/cumm Hgb 19.9 (H) 13.0 - 17.5 g/dL Hct 43.2 38.9 - 50.3 % Plt 447 (H) 150 - 400 K/cumm MPV 9.1 9.1 - 12.3 fL RBC 5.08 4.30 - 5.80 M/cumm MCV 85.0 81.3 - 96.4 fL MCH 39.2 (H) 27.1 - 33.3 pg MCHC 46.0 (H) 32.3 - 35.7 g/dL RDW CV 13.2 11.1 - 14.9 % RDW SD 40.5 35.7 - 48.1 fL NRBC abs 0.00 0.00 - 0.01 K/cumm Comprehensive metabolic panel Collection Time: 02/10/23 3:22 PM Result Value Ref Range Sodium 119 (Critical) 135 - 145 mmol/L Potassium, pl 5.0 (H) 3.3 - 4.9 mmol/L Chloride 87 (L) 97 - 110 mmol/L CO2 8 (L) 22 - 32 mmol/L Anion gap 24 (H) 2 - 15 mmol/L BUN 13 8 - 25 mg/dL Creatinine 0.90 0.80 - 1.30 mg/dL Glucose 337 (H) 70 - 199 mg/dL Calcium 9.7 8.5 - 10.3 mg/dL Bilirubin, total 0.2 0.1 - 1.2 mg/dL Protein, pl 6.9 6.5 - 8.5 g/dL Albumin 3.6 3.5 - 5.0 g/dL Alk phos 127 40 - 130 Units/L ALT 18 7 - 55 Units/L AST 21 10 - 50 Units/L Lipase Collection Time: 02/10/23 3:22 PM Result Value Ref Range Lipase 1,341 (H) 10 - 99 Units/L Sepsis Lactate w/ Reflex Collection Time: 02/10/23 3:22 PM Result Value Ref Range Sepsis Lactate 1.5 0.7 - 2.0 mmol/L eGFR Collection Time: 02/10/23 3:22 PM Result Value Ref Range eGFR 108 mL/min/1.73 m2 Manual Differential Collection Time: 02/10/23 3:22 PM Result Value Ref Range Differential Manual Cells Counted 100 Neutrophil abs 30.3 (H) 1.7 - 6.5 K/cumm Imm gran abs 3.5 (H) 0.0 - 0.1 K/cumm Lymphocyte abs 4.3 (H) 0.8 - 3.3 K/cumm Monocyte abs 4.8 (H) 0.2 - 0.8 K/cumm Eosinophil abs 0.4 0.0 - 0.5 K/cumm Neutrophil pct 70.0 % Lymphocyte pct 7.0 % Monocyte pct 11.0 % Eosinophil pct 1.0 % Neutrophilic metamyelocytes 8.0 % Variant lymphs 3.0 (H) 0.0 - 0.0 % Toxic granulation Present RBC morphology Consistent with RBC Indicies Platelet estimate #I LARGE PLATELETS SEEN Morphology scrn #SN MANY BANDS PRESENT Urinalysis reflex to microscopic and culture Urine Collection Time: 02/10/23 3:32 PM Specimen: Urine Result Value Ref Range Color, ur Yellow Yellow Clarity, ur Cloudy (A) Clear Specific gravity, ur 1.026 1.003 - 1.030 pH, urine 5.0 Protein, ur ql 3+ (A) Negative Glucose, ur ql 3+ (A) Negative Ketones, ur 2+ (A) Negative Bilirubin, ur Negative Negative Blood, ur 3+ (A) Negative Urobilinogen, ur <2.0 <2.0 mg/dL Nitrite, ur Negative Negative Leukocyte esterase, ur Negative Negative UA reflex comment Reflex to microscopic UA will be performed. Urinalysis, microscopic only Collection Time: 02/10/23 3:32 PM Result Value Ref Range WBC, ur 0-5 0 - 5 /HPF RBC, ur 3-5 (A) 0 - 2 /HPF Epithelial cells, squamous, ur 6-10 (A) 0 - 5 /HPF Bacteria, ur Trace (A) Mucous, ur Present (A) Culture Reflex Comment Reflex conditions for urine culture (WBC >10) not met. POCT glucose Collection Time: 02/10/23 4:13 PM Result Value Ref Range Glucose, POC 336 (H) 70 - 199 mg/dL Glucose comment 1 Use This Result Blood gas, venous Collection Time: 02/10/23 4:24 PM Result Value Ref Range pH, Venous 7.11 (Critical) 7.32 - 7.43 PCO2, Venous 22 (L) 40 - 50 mmHg PO2, Venous 39 mmHg HCO3 Venous, Calculated 7 (Critical) 20 - 30 mmol/L BE, venous -21 mmol/L POCT glucose Collection Time: 02/10/23 6:00 PM Result Value Ref Range Glucose, POC 244 (H) 70 - 199 mg/dL Glucose comment 1 Use This Result Basic metabolic panel Collection Time: 02/10/23 6:02 PM Result Value Ref Range Sodium 126 (L) 135 - 145 mmol/L Potassium, pl 4.2 3.3 - 4.9 mmol/L Chloride 95 (L) 97 - 110 mmol/L CO2 8 (L) 22 - 32 mmol/L Anion gap 23 (H) 2 - 15 mmol/L BUN 12 8 - 25 mg/dL Creatinine 0.90 0.80 - 1.30 mg/dL Glucose 271 (H) 70 - 199 mg/dL Calcium 8.2 (L) 8.5 - 10.3 mg/dL Lactate Collection Time: 02/10/23 6:02 PM Result Value Ref Range Lactate 2.0 0.7 - 2.0 mmol/L Magnesium Collection Time: 02/10/23 6:02 PM Result Value Ref Range Magnesium 1.8 1.4 - 2.5 mg/dL Phosphorus Collection Time: 02/10/23 6:02 PM Result Value Ref Range Phosphorus, pl 2.2 (L) 2.3 - 4.5 mg/dL eGFR Collection Time: 02/10/23 6:02 PM Result Value Ref Range eGFR 108 mL/min/1.73 m2 POCT glucose Collection Time: 02/10/23 6:44 PM Result Value Ref Range Glucose, POC 271 (H) 70 - 199 mg/dL Glucose comment 1 Use This Result POCT glucose Collection Time: 02/10/23 7:17 PM Result Value Ref Range Glucose, POC 309 (H) 70 - 199 mg/dL Glucose comment 1 Use This Result POCT glucose Collection Time: 02/10/23 7:52 PM Result Value Ref Range Glucose, POC 236 (H) 70 - 199 mg/dL Glucose comment 1 Use This Result Beta-hydroxybutyrate Collection Time: 02/10/23 8:34 PM Result Value Ref Range Beta-Hydroxybutyrate 6.4 (H) <=0.5 mmol/L Basic metabolic panel Collection Time: 02/10/23 8:34 PM Result Value Ref Range Sodium 122 (L) 135 - 145 mmol/L Potassium, pl 4.2 3.3 - 4.9 mmol/L Chloride 94 (L) 97 - 110 mmol/L CO2 7 (L) 22 - 32 mmol/L Anion gap 21 (H) 2 - 15 mmol/L BUN 12 8 - 25 mg/dL Creatinine 0.70 (L) 0.80 - 1.30 mg/dL Glucose 240 (H) 70 - 199 mg/dL Calcium 8.2 (L) 8.5 - 10.3 mg/dL Magnesium Collection Time: 02/10/23 8:34 PM Result Value Ref Range Magnesium 1.9 1.4 - 2.5 mg/dL Phosphorus Collection Time: 02/10/23 8:34 PM Result Value Ref Range Phosphorus, pl 2.2 (L) 2.3 - 4.5 mg/dL eGFR Collection Time: 02/10/23 8:34 PM Result Value Ref Range eGFR 117 mL/min/1.73 m2 POCT glucose Collection Time: 02/10/23 8:50 PM Result Value Ref Range Glucose, POC 236 (H) 70 - 199 mg/dL Glucose comment 1 Use This Result POCT glucose Collection Time: 02/10/23 10:56 PM Result Value Ref Range Glucose, POC 194 70 - 199 mg/dL Glucose comment 1 Use This Result Glucose comment 2 RN/ Notified Basic metabolic panel Collection Time: 02/10/23 11:50 PM Result Value Ref Range Sodium 123 (L) 135 - 145 mmol/L Potassium, pl 4.0 3.3 - 4.9 mmol/L Chloride 98 97 - 110 mmol/L CO2 7 (L) 22 - 32 mmol/L Anion gap 18 (H) 2 - 15 mmol/L BUN 11 8 - 25 mg/dL Creatinine 0.70 (L) 0.80 - 1.30 mg/dL Glucose 190 70 - 199 mg/dL Calcium 8.3 (L) 8.5 - 10.3 mg/dL Magnesium Collection Time: 02/10/23 11:50 PM Result Value Ref Range Magnesium 1.8 1.4 - 2.5 mg/dL Phosphorus Collection Time: 02/10/23 11:50 PM Result Value Ref Range Phosphorus, pl 1.8 (L) 2.3 - 4.5 mg/dL eGFR Collection Time: 02/10/23 11:50 PM Result Value Ref Range eGFR 117 mL/min/1.73 m2 POCT glucose Collection Time: 02/10/23 11:53 PM Result Value Ref Range Glucose, POC 178 70 - 199 mg/dL Glucose comment 1 Use This Result Glucose comment 2 RN/ Notified POCT glucose Collection Time: 02/11/23 12:55 AM Result Value Ref Range Glucose, POC 201 (H) 70 - 199 mg/dL POCT glucose Collection Time: 02/11/23 1:58 AM Result Value Ref Range Glucose, POC 176 70 - 199 mg/dL Glucose comment 1 Use This Result Glucose comment 2 RN/ Notified POCT glucose Collection Time: 02/11/23 2:41 AM Result Value Ref Range Glucose, POC 191 70 - 199 mg/dL Glucose comment 1 Use This Result POCT glucose Collection Time: 02/11/23 3:36 AM Result Value Ref Range Glucose, POC 176 70 - 199 mg/dL ASSESSMENT/PLAN Critically ill patient with DKA and Acute Pancreatitis with hypertriglyceridemia Principal Problem: Diabetic ketoacidosis without coma associated with other specified diabetes mellitus (HCC) Neurologic: No acute issues Cardiovascular: Hemodynamics stable Pulmonary: Oxygenation stable GI: Acute pancreatitis : Due to elevated TGL- Will keep NPO-treat symptomatically : follow serial labs and watch closely for complications Renal: AGMA due to DKA - follow serial labs Hyponatremia- due to elevated BG and volume depletion Hematology: Will trend WBC- elevated due to DKA and pancreatitis ID: Will hold off Abx unless clinical signs of pancreatis necrosis/ phlegmon Endocrine: Cont DKA treatment protocol Musculoskeletal: NA Prophylaxis: [facility] Juvenal Anderson MD 02/11/2023 documented in this encounter Procedure Notes * Mirella Coleman MD - 02/13/2023 11:18 PM CDTAssociated Order(s): Critical Care Post-Procedure Diagnose(s): Diabetic ketoacidosis without coma associated with other specified diabetes mellitus (HCC); Acute pancreatitis, unspecified complication status, unspecified pancreatitis type Critical Care Performed by: Mirella Coleman MD Authorized by: Mirella Coleman MD CRITICAL CARE: Team: B Shift: PM Level of Billing: Subsequent Hospital Visit Level 3 My time spent with this patient was 30 minutes: Critical Provider Statement: I have seen and examined the patient on this day of service. I have reviewed and confirmed the history, physical exam, laboratory, and radiographic data as documented in the ICU note. I have reviewed and discussed my treatment plan with the patient's team and other medical/professional benefits sales consultant staff. This time was in addition to and separate from care provided by other practitioners on this day of service. Acute electrolyte derangement, Diabetic Ketoacidosis and Hypo- or Hyperglycemia This time was spent by me doing the following: Active and frequent monitoring of intake/output and volumen status and Glycemic control Active repletion of electrolytes I spent time reviewing and interpreting data from bedside monitors, laboratory results, and imaging, I spent time discussing the management of this critically ill patient with consultants and the medical staff and I spent time documenting in the medical record 42-year-old man with new onset diabetes, admitted to ICU due to DKA, AG closed Evening Lantus dose increased again tonight He remains off of the insulin gtt Monitor blood glucose * Mirella Coleman MD - 02/12/2023 11:15 PM CDTAssociated Order(s): Critical Care Post-Procedure Diagnose(s): Diabetic ketoacidosis without coma associated with other specified diabetes mellitus (HCC) Critical Care Performed by: Mirella Coleman MD Authorized by: Mirella Coleman MD CRITICAL CARE: Team: B Shift: PM Level of Billing: Critical Care My time spent with this patient was 35 minutes: Critical Provider Statement: I have seen and examined the patient on this day of service. I have reviewed and confirmed the history, physical exam, laboratory and radiologic data as documented in thesigned ICU note. I have reviewed and discussed my treatment plan with the ICU team and other medical/professional benefits sales consultant staff, making frequent assessments and decisions regarding this patient's complex medical care. Critical Care time was exclusive of time spent performing separately billed procedures, treating other patients, and teaching. This time was in addition to and separate from critical care provided by other practitioners in my group on this day of service. Critical Care was necessary to treat or prevent imminent or life-threatening deterioration of the following conditions: Acute electrolyte derangement, Diabetic Ketoacidosis and Hypo- or Hyperglycemia This time was spent by me doing the following: Active and frequent monitoring of intake/output and volumen status and Glycemic control Active repletion of electrolytes I spent time reviewing and interpreting data from bedside monitors, laboratory results, and imaging, I spent time discussing the management of this critically ill patient with consultants and the medical staff and I spent time documenting in the medical record 42-year-old man with new onset diabetes, admitted to ICU due to DKA, AG closed P.m. Lantus dose increased Continue insulin gtt to have overlap until patient fully transitioned to subcutaneous insulin Continue electrolyte repletion * Mirella Coleman MD - 02/11/2023 8:07 PM CDTAssociated Order(s): Critical Care Post-Procedure Diagnose(s): Diabetic ketoacidosis without coma associated with other specified diabetes mellitus (HCC); Acute pancreatitis, unspecified complication status, unspecified pancreatitis type Critical Care Performed by: Mirella Coleman MD Authorized by: Mirella Coleman MD CRITICAL CARE: Team: [facility] Shift: PM Level of Billing: Critical Care My time spent with this patient was 40 minutes: Critical Provider Statement: I have seen and examined the patient on this day of service. I have reviewed and confirmed the history, physical exam, laboratory and radiologic data as documented in thesigned ICU note. I have reviewed and discussed my treatment plan with the ICU team and other medical/professional benefits sales consultant staff, making frequent assessments and decisions regarding this patient's complex medical care. Critical Care time was exclusive of time spent performing separately billed procedures, treating other patients, and teaching. This time was in addition to and separate from critical care provided by other practitioners in my group on this day of service. Critical Care was necessary to treat or prevent imminent or life-threatening deterioration of the following conditions: Acute electrolyte derangement, Diabetic Ketoacidosis and Hypo- or Hyperglycemia This time was spent by me doing the following: Active and frequent monitoring of intake/output and volumen status and Glycemic control Active repletion of electrolytes I spent time reviewing and interpreting data from bedside monitors, laboratory results, and imaging, I spent time discussing the management of this critically ill patient with consultants and the medical staff and I spent time documenting in the medical record 42-year-old man with new onset diabetes, admitted to ICU due to DKA Anion gap closed, unable to transition patient to subQ insulin. Insulin gtt restarted. Start carb controlled diet. Electrolytes repleted. * Juvenal Anderson MD - 02/11/2023 4:01 AM CDTAssociated Order(s): Critical Care Post-Procedure Diagnose(s): Diabetic ketoacidosis without coma associated with other specified diabetes mellitus (HCC) Critical Care Performed by: Juvenal Anderson MD Authorized by: Juvenal Anderson MD CRITICAL CARE: Team: B Shift: PM Level of Billing: Critical Care My time spent with this patient was 40 minutes: Critical Provider Statement: I have seen and examined the patient on this day of service. I have reviewed and confirmed the history, physical exam, laboratory and radiologic data as documented in thesigned ICU note. I have reviewed and discussed my treatment plan with the ICU team and other medical/professional benefits sales consultant staff, making frequent assessments and decisions regarding this patient's complex medical care. Critical Care time was exclusive of time spent performing separately billed procedures, treating other patients, and teaching. This time was in addition to and separate from critical care provided by other practitioners in my group on this day of service. Critical Care was necessary to treat or prevent imminent or life-threatening deterioration of the following conditions: Acute pancreatitis Acid-base disturbance and Diabetic Ketoacidosis This time was spent by me doing the following: Serial laboratory checks and Resuscitation with fluids Glycemic control I spent time reviewing and interpreting data from bedside monitors, laboratory results, and imaging, I spent time discussing the management of this critically ill patient with consultants and the medical staff and I spent time documenting in the medical record documented in this encounter Consult Notes * Natalie Zabala RD - 02/14/2023 5:52 PM CDT Reason for consult: New onset diabetes DKA/HHS Note to Hospitalist - I saw this patient from 1650 to 1730. I reviewed all diabetes ed that he needs to know. Recommend that patient go home on 75 Lantus and 10 units with meals and hold Metformin. Follow up with PCP. Patient comes from a family of 7 children and he is number 6 and all of them haveType 2 DM. His mother has Type 2 DM since she was 64 and now she is close to 80. Strong family history it seems. The patient is ready to go from my standpoint. Just FYI. Thanks. Will need Humalog Kwikpen for home. Patient has Lantus, but will need a new script. He has pen needles, but he will need more for home. He already has a [email or web address] BG meter, test strips and lancets. Just I. Thanks. Most recent A1C: 13.0% Admission blood glucose: 325 Current blood glucose: 189 DM Type: Type 2 Duration of DM: New (c-peptide 1.4; DELORIS cancelled) Diabetes medication on admission: Lantus 10 units daily; Metformin 500 mg BID Current inpatient regimen: Lantus 75 units HS; 10 units WM; Low SSI Diabetes treated by: Dr. Lemuel Frost Insured by: [facility] Frequency of blood glucose checks at home? 3 times a day Device? [email or web address] brand Education: Foot care, daily checks, well fitting shoes, report any injuries or wounds to PCP YVETTE Diet education-MY PLATE reviewed, reinforce meal spacing. Glucose checks: BEfore each meal and HS. REviewed BG goals Exercise 150 minutes of walking per week, as tolerated. Sick day rules when applicable: Medication instructions - Reviewed action of Lantus and Humalog Hyperglycemia:instructed on causes, symptoms and treatment Hypoglycemia: instructed on causes, symptoms and treatment - Reviewed Rule of 15 Encouraged patient to follow up with PCP and consider seeing and Interactive Project Manager in the future. Gave diabetes ed folder, DM Mgt book and contact information. Encouraged outpatient diabetes ed and nutrition counseling. Needs referral from PCP. Natalie Zabala RDN, LDN, CDCES Certified [facility] * Leah Jacobs RD - 02/11/2023 1:17 PM CDTAssociated Order(s): IP CONSULT TO NUTRITION SERVICES Nutrition Assessment Reason for Assessment: Consult/Referral and Diet Education Encounter Date: 02/11/23 1:34 PM Patient is a 42 y.o. male. Admit Dx: Diabetic ketoacidosis without coma associated with other specified diabetes mellitus (HCC) [E13.10] Acute pancreatitis, unspecified complication status, unspecified pancreatitis type [K85.90]. Admitted on 02/10/2023, current LOS is 1 days. Nutrition Diagnosis 1: Food and nutrition-related knowledge deficit Related to: Chronic illness/injury, Food choices (DM) Evidenced by: Patient interview ASPEN Malnutrition Assessment: Date of completion (or initial diagnosis): 02/11/23 Patient does not meet criteria for malnutrition based on ASPEN guidelines. Nutrition-focused physical exam (NFPE) findings: ASPEN/AND Malnutrition Screening: Patient does not meet malnutrition criteria Subcutaneous Fat Loss Orbital Region - Surrounding the Eye: Slightly bulged fat pads Cheek Region - Buccal Fat: Full, round filled-out cheeks Upper Arm Region - Triceps/Biceps: Ample fat tissue obvious between folds of skin Muscle Loss [place] Region - Temporalis Muscle: Can see/feel well-defined muscle Clavicle Bone Region - Pectoralis Major, Deltoid, Trapezius Muscles: Visible in male, some protrusion in female Clavicle and Acromion Bone Region - Deltoid Muscle: Acromion process may slightly protrude Dorsal Hand - Interosseous Muscle: Muscle bulges, could be flat in some well nourished people Anterior Thigh and Patellar Region - Quadricep Muscle: Patella prominent, square appearance (Pt reports he has always had chicken legs ) Posterior Calf Region - Gastrocnemius Muscle: Well-developed bulb of muscle ASSESSMENT AND INTERVENTION/RECOMMENDATIONS: Pt is a 42 y.o. male w/ PMH of recent DM diagnosis (within the last few days), admitted 02/10/2023 for Diabetic ketoacidosis without coma associated with other specified diabetes mellitus (HCC) [E13.10] Acute pancreatitis, unspecified complication status, unspecified pancreatitis type [K85.90]. RD wasconsulted for MST 3 (24-33 lbs weight loss). Pt reports a good appetite, states he is hungry. Pt is currently NPO per DKA protocol. Informed pt why he is currently NPO. Pt reports having a good appetite at home. Pt states he eats 2-3 meals per day. If pt has breakfast, it can be from [employer]. Pt states lunch is typically a deli sandwich, and dinner is typically meat such as steak. Beverages during the day include water, Gatorade, and occasional sodas. Pt states he is not a fan of sides, and for a while has been following an Jan's-like diet. Pt does report that he has ice cream quite often. Pt reports no upset stomach, nausea, vomiting, diarrhea, constipation. Last pt BM has not been documented. Pt reports 30 lbs weight loss. Pt reports UBW of 165-175 lbs. Pt CBW is 150 lbs. Pt reports that earlier this year, he tried losing weight and dieting. Per RN during ICU rounds, pt was taking Ozempic. Per chart review, pt previously weighed 172 lbs on 12/16/21, which indicates a 25 lb (14.5%) weightloss in 13.5 months, which is not significant for timeframe. NFPE performed (see above). D/t weightloss being partially intentional, pt does not meet criteria for malnutrition. As pt is new to diabetic diet, pt reports having no prior nutrition education. Pt willing to hear diet education (see below). All pot questions were answered at this time. Pt hopes to return home on d/c. RD will continue to monitor and follow. EDUCATION NEEDED/COMPLETED? Provided and discussed with patient Carbohydrate Counting for People with Diabetes and Plate Methodfor Diabetes handouts from Nutrition Care Manual. Encouraged eating 3 meals/day for blood sugar control. Discussed foods that contain carbohydrates and how they impact blood sugars. Reviewed foods to limit/avoid. Discussed liquids that may contain carbohydrates. Encouraged the reduction of high fatfoods so to reduce weight, cholesterol, and triglyceride levels. Discussed importance of fiber for a healthy diet. Reviewed s/s of hypoglycemia and corrective action. Discussed grams of CHO recommended per meal. RD contact information provided. GOALS / MONITORING: Goals: Patient/caregiver able to teach back understanding of role of diet in disease process prior to discharge, Advance to oral intake as medically able Interventions: NFPE, Initial assessment, Education, nutrition, Encouragement Monitoring and Evaluation: Appetite, Diet advancement, Food preferences, PO intake, Diet-related questions, Discharge plans, Plan of care, Blood glucoses Anthropometrics: Wt Readings from Last 10 Encounters: 02/11/23 68.1 kg (150 lb 2.1 oz) 02/10/23 67.6 kg (149 lb) 02/08/23 67.8 kg (149 lb 6.4 oz) 12/16/21 78.4 kg (172 lb 12.8 oz) 11/18/21 78.7 kg (173 lb 6.4 oz) 10/09/21 77.2 kg (170 lb 1.6 oz) Anthropometrics Weight: 68.1 kg (150 lb 2.1 oz) Admission Weight : 68.1 kg Weight Change: 1.39 kg (3.08 lbs) IBW/kg (Calculated) : 69.9 kg Height: 172.7 cm (5' 8 ) Weight in (lb) to have BMI = 25: 164.1 BMI (Calculated): 22.8 Estimated Nutrition Needs: Calories Calculated Energy Needs Using Equations Weight Used for Equation Calculations (RD Determined): 68.1 kg (150 lb 2.1 oz) Weight: 68.1 kg (150 lb 2.1 oz) Height: 172.7 cm (5' 8 ) [place] Equation (Overweight or Obese Patients): 1546 Equation Chosen to Use by RD: [employer] [place] Activity Factor: 1.2 Total Energy Needs: 1855.2 kcal Total Energy Needs + Fever Factor: 1855.2 Protein Estimated Protein Needs Type of Weight Used for Estimated Protein : Current Protein Needs Based on g/k.0 Total Protein Estimated Needs (gm): 68.1 Fluid Estimated Fluid Needs Type of Weight Used for Estimated Fluid Needs: Current Fluid Needs Based on : 25 ml/kg Total Fluid Estimated Needs: 1702.5 Total Fluid Estimated Needs Comments:: 1500 mL minimum for adult maintenance. Medications: 02/11/23: Protonix, D5 at 100 mL/hr, Insulin at 6.5 units/hr, NaCl 0.45% at 150 mL/hr Lab Review: 02/11/23: Na 129 (L), Cr 0.7 (L), Ca 8.3 (L), Phos 2.1 (L) Past Medical History: Diagnosis Date Diabetes mellitus (HCC) No past surgical history on file. Dietary Orders (From admission, onward) Start Ordered 02/10/232229 NPO Diet Diet effective now 05/18/23 2229 Diet Instructions Continue to follow a consistent carbohydrate diet upon discharge. Avoid concentrated sweets such ascookies, cake, candy and ice cream. Also, avoid sugar-sweetened beverages such as lemonade, sweet tea, regular soda, juice and Gatorade. Eat 60 g of carbohydrates at each meal. Eat 3 meals per day and try to eat at consistent times. If interested, ask your doctor for referral to outpatient nutrition counseling. Call [facility] Dietitian's office at [phone] for questions about your diet. Additional resources available from the [place] [employer] can be found at [email or web address].[email or web address] Nutrition Follow-Up : 02/15/23 (diet-related questions) Leah Jacobs RD documented in this encounter Nursing Notes * Susie Hutton RN - 02/13/2023 4:[address] Goldstein notified of blood sugar. Orders received to restart insulin drip at 2u/hr and recheck blood sugar in an hour. New orders carried out. documented in this encounter ED Notes * Laura Prieto NP - 02/10/2023 5:37 PM CDT CHIEF COMPLAINT: Chief Complaint Patient presents with ??? Abnormal Lab HPI 8:17 PM Chadwick Holcomb is a 42 y.o. male presenting to the ED c/o generalized weakness. He states that approximally from last 1-2 months he has been having symptoms for polydipsia, polyphagia, polyuria, he saw his primary care doctor who did lab work and was diagnosed with diabetes, was started on metformin and insulin 2 days ago, he came in today because he went to see his primary care doctor whodid some lab work and found to have elevated lipase, elevated triglycerides and blood sugar. He is complaining of worsening of his weakness and fatigue in last 2-3 days along with abdominal pain and constipation denies any diarrhea. Denies any fever or chill. Denies any chest pain. He does not have any other comorbidity other than family history of diabetes. History provided by patient. PCP: Lemuel Frost MD PAST MEDICAL HISTORY Past Medical History: Diagnosis Date ??? Diabetes mellitus (HCC) PAST SURGICAL HISTORY No past surgical history on file. FAMILY HISTORY Family History Problem Relation Age of Onset ??? Cancer Mother ??? Diabetes Mother ??? No Known Problems Father ??? Hypertension Brother MEDICATIONS GIVEN IN THE ED Medications sodium chloride 0.45% infusion (100 mL/hr intravenous Rate/Dose Change 02/10/231802) dextrose 5% infusion (50 mL/hr intravenous Not Given 02/10/231999) magnesium sulfate 2 g/50 mL in water (premix) 2 g (2 g intravenous Not Given 02/10/231827) dextrose (D10W) 10% bolus 250 mL (has no administration in time range) insulin regular (HumuLIN R, NovoLIN R) 100 Units in sodium chloride 0.9% 100 mL (1 Units/mL) infusion (6.5 Units/hr intravenous Rate/Dose Verify 02/10/232000) potassium chloride 40 mEq/520 mL in sodium chloride 0.9% (premix) 40 mEq (has no administration in time range) sodium chloride 0.9% bolus 1,000 mL (0 mL intravenous Stopped 02/10/231751) sodium chloride 0.9% bolus 1,000 mL (0 mL intravenous Stopped 02/10/231751) insulin regular (HumuLIN R, NovoLIN R) 100 unit/mL injection 7 Units (7 Units intravenous Given 02/10/23 172) piperacillin-tazobactam (ZOSYN) 4.5 g in sodium chloride 0.9% 100 mL IVPB (0 g intravenous Stopped 02/10/231816) pantoprazole (PROTONIX) 4 mg/mL injection 40 mg (40 mg intravenous Given 02/10/23 173) ioversoL (OPTIRAY 350) syringe 100 mL (100 mL intravenous Contrast Given 02/10/23 183) CURRENT HOME MEDICATIONS Current Facility-Administered Medications: ??? dextrose (D10W) 10% bolus 250 mL, 250 mL, intravenous, Q15 Min PRN, Laura Prieto TACKING MACHINE OPERATOR ??? dextrose 5% infusion, 100 mL/hr, intravenous, Continuous, Laura Prieto NP, Last Rate: 50 mL/hr at 02/10/231949, 50 mL/hr at 02/10/231949 ??? insulin regular (HumuLIN R, NovoLIN R) 100 Units in sodium chloride 0.9% 100 mL (1 Units/mL) infusion, 0-30 Units/hr, intravenous, Titrated, Laura Prieto, TACKING MACHINE OPERATOR, Last Rate: 6.5 mL/hr at 02/10/232000, 6.5 Units/hr at 02/10/232000 ??? magnesium sulfate 2 g/50 mL in water (premix) 2 g, 2 g, intravenous, Once, Laura Prieto, AALIYAH ??? potassium chloride 40 mEq/520 mL in sodium chloride 0.9% (premix) 40 mEq, 40 mEq, intravenous, Q4H PRN, Laura Prieto, AALIYAH ??? sodium chloride 0.45% infusion, 150 mL/hr, intravenous, Continuous, Laura Prieto, AALIYAH, Last Rate: 100 mL/hr at 02/10/231802, 100 mL/hr at 02/10/231802 Current Outpatient Medications: ??? insulin glargine 100 unit/mL (3 mL) pen for injection, Inject 10 Units under the skin daily, Disp: 6 mL, Rfl: 3 ??? metFORMIN XR (GLUCOPHAGE XR) 500 mg 24 hr tablet, Take 1 tablet (500 mg total) by mouth 2 (two)times a day before breakfast and lunch, Disp: 360 tablet, Rfl: 1 ??? blood glucose diagnostic (glucose blood) strip, Use as directed to check blood glucose 4 times per day, Disp: 100 each, Rfl: 11 ??? blood-glucose meter kit, Use as directed to check blood glucose four times per day, Disp: 1 kit, Rfl: 0 ??? fenofibrate nanocrystallized (TRICOR) 145 mg tablet, Take 1 tablet (145 mg total) by mouth daily, Disp: 90 tablet, Rfl: 3 ??? lancets misc, Use as directed to check blood glucose 4 times per day, Disp: 200 each, Rfl: 3 ??? pen needle, diabetic 31 gauge x 5/16 needle, Use to inject 1-4 times daily as directed., Disp:300 each, Rfl: 4 ??? rosuvastatin (CRESTOR) 20 mg tablet, Take 1 tablet (20 mg total) by mouth daily, Disp: 90 tablet, Rfl: 3 ALLERGIES No Known Allergies SOCIAL HISTORY Social History Tobacco Use ??? Smoking status: Never ??? Smokeless tobacco: Not on file Substance and Sexual Activity ??? Drug use: Never ??? Sexual activity: Defer Alcohol Use: Unknown (10/09/2021) AUDIT-C ??? Frequency of Alcohol Consumption: Monthly or less ??? Average Number of Drinks: 1 or 2 ??? Frequency of Binge Drinking: Not on file PHYSICAL EXAM TRIAGE VITAL SIGNS: ED Triage Vitals [02/10/23 1515] Temp Pulse Resp BP SpO2 36.5 ??C (97.7 ??F) (!) 135 24 143/94 96 % Temp src Heart Rate Source Patient Position BP Location FiO2 (%) Transdermal -- -- -- -- Height Height Method Weight Weight Method -- -- 66.7 kg (147 lb 0.8 oz) Standing scale Physical Exam Vitals and nursing note reviewed. Constitutional: General: He is not in acute distress. Appearance: Normal appearance. He is well-developed. He is not ill-appearing, toxic-appearing or diaphoretic. HENT: Head: Normocephalic and atraumatic. Jaw: There is normal jaw occlusion. Right Ear: Hearing and external ear normal. Left Ear: Hearing and external ear normal. Nose: Nose normal. Mouth/Throat: Mouth: Mucous membranes are dry. Eyes: General: Lids are normal. Vision grossly intact. Conjunctiva/sclera: Conjunctivae normal. Neck: Trachea: Trachea and phonation normal. Cardiovascular: Rate and Rhythm: Normal rate and regular rhythm. Pulses: Normal pulses. Radial pulses are 2+ on the right side and 2+ on the left side. Heart sounds: No murmur heard. Pulmonary: Effort: Pulmonary effort is normal. No respiratory distress. Breath sounds: Normal breath sounds and air entry. Abdominal: Palpations: Abdomen is soft. Tenderness: There is abdominal tenderness in the right upper quadrant and epigastric area. Musculoskeletal: General: No swelling. Cervical back: Full passive range of motion without pain, normal range of motion and neck supple. Right lower leg: No edema. Left lower leg: No edema. Skin: General: Skin is warm and dry. Capillary Refill: Capillary refill takes less than 2 seconds. Neurological: General: No focal deficit present. Mental Status: He is alert and oriented to person, place, and time. GCS: GCS eye subscore is 4. GCS verbal subscore is 5. GCS motor subscore is 6. Psychiatric: Attention and Perception: Attention normal. Mood and Affect: Mood normal. Speech: Speech normal. Behavior: Behavior normal. Behavior is cooperative. Thought Content: Thought content normal. LABS Labs Reviewed URINALYSIS AND REFLEX TO MICROSCOPIC AND CULTURE - Abnormal Result Value Color, ur Yellow Clarity, ur Cloudy (*) Specific gravity, ur 1.026 pH, urine 5.0 Protein, ur ql 3+ (*) Glucose, ur ql 3+ (*) Ketones, ur 2+ (*) Bilirubin, ur Negative Blood, ur 3+ (*) Urobilinogen, ur <2.0 Nitrite, ur Negative Leukocyte esterase, ur Negative UA reflex comment Reflex to microscopic UA will be performed. Narrative: Urine pH is affected by diet, medications, systemic acid-base disturbances, and renal tubular function. pH may affect urinary stone formation. For example, urine pH below 6.0 may help reduce the tendency for calcium phosphate stones and pH greater than 6.0 may reduce the tendency for uric acid stone formation. Source: [facility] [employer]Last revised 10-06-2017 CBC WITH AUTO DIFFERENTIAL - Abnormal WBC 43.3 (*) Hgb 19.9 (*) Hct 43.2 Plt 447 (*) MPV 9.1 RBC 5.08 MCV 85.0 MCH 39.2 (*) MCHC 46.0 (*) RDW CV 13.2 RDW SD 40.5 NRBC abs 0.00 COMPREHENSIVE METABOLIC PANEL - Abnormal Sodium 119 (*) Potassium, pl 5.0 (*) Chloride 87 (*) CO2 8 (*) Anion gap 24 (*) BUN 13 Creatinine 0.90 Glucose 337 (*) Calcium 9.7 Bilirubin, total 0.2 Protein, pl 6.9 Albumin 3.6 Alk phos 127 ALT 18 AST 21 LIPASE - Abnormal Lipase 1,341 (*) URINALYSIS, MICROSCOPIC ONLY - Abnormal WBC, ur 0-5 RBC, ur 3-5 (*) Epithelial cells, squamous, ur 6-10 (*) Bacteria, ur Trace (*) Mucous, ur Present (*) Culture Reflex Comment Value: Reflex conditions for urine culture (WBC >10) not met. BLOOD GAS, VENOUS - Abnormal pH, Venous 7.11 (*) PCO2, Venous 22 (*) PO2, Venous 39 HCO3 Venous, Calculated 7 (*) BE, venous -21 BASIC METABOLIC PANEL - Abnormal Sodium 126 (*) Potassium, pl 4.2 Chloride 95 (*) CO2 8 (*) Anion gap 23 (*) BUN 12 Creatinine 0.90 Glucose 271 (*) Calcium 8.2 (*) HEMOGLOBIN A1C - Abnormal Hgb A1C 13.0 (*) Estimated Average Glucose 326 PHOSPHORUS - Abnormal Phosphorus, pl 2.2 (*) MANUAL DIFFERENTIAL - Abnormal Differential Manual Cells Counted 100 Neutrophil abs 30.3 (*) Imm gran abs 3.5 (*) Lymphocyte abs 4.3 (*) Monocyte abs 4.8 (*) Eosinophil abs 0.4 Neutrophil pct 70.0 Lymphocyte pct 7.0 Monocyte pct 11.0 Eosinophil pct 1.0 Neutrophilic metamyelocytes 8.0 Variant lymphs 3.0 (*) Toxic granulation Present RBC morphology Consistent with RBC Indicies Platelet estimate #I LARGE PLATELETS SEEN Morphology scrn #SN MANY BANDS PRESENT POCT GLUCOSE DEVICE - Abnormal Glucose, POC 336 (*) Glucose comment 1 Use This Result POCT GLUCOSE DEVICE - Abnormal Glucose, POC 244 (*) Glucose comment 1 Use This Result POCT GLUCOSE DEVICE - Abnormal Glucose, POC 271 (*) Glucose comment 1 Use This Result POCT GLUCOSE DEVICE - Abnormal Glucose, POC 309 (*) Glucose comment 1 Use This Result POCT GLUCOSE DEVICE - Abnormal Glucose, POC 236 (*) Glucose comment 1 Use This Result BLOOD CULTURE BLOOD CULTURE SEPSIS LACTATE WITH REFLEX Sepsis Lactate 1.5 EGFR eGFR 108 ETHANOL Ethanol <10 LACTATE Lactate 2.0 MAGNESIUM Magnesium 1.8 EGFR eGFR 108 BETA-HYDROXYBUTYRATE BASIC METABOLIC PANEL BASIC METABOLIC PANEL BASIC METABOLIC PANEL MAGNESIUM MAGNESIUM MAGNESIUM PHOSPHORUS PHOSPHORUS PHOSPHORUS POCT GLUCOSE DEVICE POCT GLUCOSE DEVICE POCT GLUCOSE DEVICE POCT GLUCOSE DEVICE POCT GLUCOSE DEVICE POCT GLUCOSE DEVICE POCT GLUCOSE DEVICE POCT GLUCOSE DEVICE RADIOLOGY No results found. EKG EKG: Sinus tachycardia ED COURSE/MEDICAL DECISION MAKING ED Course as of 02/11/23 0023 Time: 02/11 1756 Comment: He was diagnosed with diabetes just earlier this week, was started on metformin and insulin 2 days ago, history that he has been feeling weak, fatigued and lethargic from last approximately 1 week, abdominal pain develops 2 days ago. On exam he does appear to be in moderate distress, dry mucous membrane, significantly elevated heart rate those sinus tachycardic, no fever, slightly elevated blood pressure. Does have a tenderness on palpitation on his epigastric and right upper quadrant abdominal region. By: Laura Prieto NP Time: 02/11 1756 Comment: He would triglyceride panel done 2 days ago and was elevated to 2329, also elevated lipase, no history of alcohol abuse or smoking, no prior history of pancreatitis. By: Laura Prieto NP Time: 02/10 1757 Comment: His CMP shows presence of DKA along with acidosis venous blood gas, I started him on insulin drip along with IV fluid. By: Laura Prieto NP Time: 02/10 1757 Comment: CBC has significant leukocytosis, there is no obvious sign of any infection other than abdominal pain, did started him on Zosyn. By: Laura Prieto NP Time: 02/10 1757 Value: Ethanol: Ethanol <10 Comment: (Reviewed) By: Laura Prieto NP Time: 02/10 1757 Value: Sepsis Lactate w/ Reflex: Lactate 1.5 Comment: Unremarkable ethanol and lactic acid By: Laura Prieto NP Time: 02/11 2012 Comment: Chest x-ray unremarkable for any acute infection. CT of abdomen and pelvis distal pancreatitis. By: Laura Prieto NP Time: 02/11 2012 Comment: I gave him Zosyn because of leukocytosis and pancreatitis, also start him on insulin drip,we do not have ICU bed available here some sending him to [facility] ICU, spoke with pcas, Dr. Anderson who accepted the patient. By: Laura Prieto NP Time: 02/11 23 Comment: I handed over this patient to Dr. Orona at the end of my shift. By: Laura Prieto NP Procedures FINAL IMPRESSION Diabetic ketoacidosis without coma associated with other specified diabetes mellitus (HCC) Acute pancreatitis, unspecified complication status, unspecified pancreatitis type DISPOSITION: Admit This examination was transcribed using the [employer] voice recognition system without human embalmer apprentice. In an effort to expedite patient care, this report has not been adjusted for typographical, grammatical, and syntax by a trained medical driver. Laura Prieto NP 02/10/232016 Cosigned by Magdaleno Rob MD at 02/12/2023 7:23 PM CDT Associated attestation - Magdaleno Rob MD - 02/12/2023 7:23 PM CDT ED Attestation I did not see this patient. However, I was personally available for consultation in the ED for thispatient if the Advanced Practice Provider (EDWIN) needed any assistance. The EDWIN evaluated the patient independently and completed their own examination, documentation, and disposition. * Kyara Smith RN - 02/10/2023 3:13 PM CDT Had blood work this morning. Sent by PCP for lipase 2400 and elevated WBC. Pt recently dx with diabetes. Mild abdominal. Given zofran by PCP for nausea today. documented in this encounter Miscellaneous Notes * Provider Query - Arnold Xiong MD - 02/15/2023 12:51 PM CDT Specify the type of Diabetes Mellitus (DM) in the medical record and on the form below. ____ Type 1 DM ____ xType 2 DM ____ DM due to underlying condition, specify below ____ Drug or chemical induced DM, specify below ____ Other type of DM, specify below Additional Provider Response: Clinical Indicators/Treatments: He was started on insulin drip. Use of terms such as likely, suspected, possible, or probable (associated with a specific diagnosisthat is being evaluated, monitored, or treated as if it exists) are acceptable and can be coded in the inpatient setting when documented at the time of discharge. This documentation will become part of the patient???s medical record. Sincerely, Betsey Jeronimo [facility] Information Management * Plan of Care - Maria Eugenia Morgan RN - 02/15/2023 2:38 AM CDT Problem: Lack of Knowledge Goal: Knowledge of [...] will improve Outcome: Progressing Problem: Sensory: Goal: Pain level will decrease Outcome: Progressing Problem: Lack of Knowledge: Goal: Ability to describe self-care measures that may prevent or decrease complications will improve Outcome: Progressing Goal: Knowledge of prevention and discharge planning will improve Outcome: Progressing Problem: Coping: Goal: Ability to adjust to condition or change in health will improve Outcome: Progressing Problem: Health Behavior: Goal: Ability to manage health-related needs will improve Outcome: Progressing Problem: Physical Regulation: Goal: Complications related to the disease process, condition or treatment will be avoided or minimized Outcome: Progressing Goal: Diagnostic test results will improve Outcome: Progressing Problem: Skin Integrity: Goal: Risk for impaired skin integrity will decrease Outcome: Progressing Problem: Health Behavior: Goal: Understanding of discharge needs will improve Outcome: Progressing Goals: Clinical Goals for the Shift: Rest, accu checks, insulin Summary: Resting at intervals. Independent in the room. Blood glucose readings improving. Insulin administered per order. Pleasant with care. Ready to be discharged to home today. * Incidental Note - Prabha Cobb MD - 02/14/2023 1:33 PM CDT This is 42-year-old male with recent diagnosis of diabetes few weeks ago was prescribed metformin and insulin hospitalized with DKA and pancreatitis. Patient has been weaned off of insulin drip. He is on basal bolus regimen. Acute pancreatitis: Hyper triglyceridemia: Pancreatitis has resolved Diet has been resumed. Patient has been started on fenofibrate and statin. clinical educator consultation has been requested. Patient will be transferred out of intensive care unit today when bed available * Plan of Care - Day Morley RN - 02/13/2023 7:46 PM CDT Goals: Clinical Goals for the Shift: rest Summary: Problem: Lack of Knowledge Goal: Knowledge of [...] Goal: Pain level will decrease Outcome: Progressing Problem: Lack of Knowledge: Goal: Ability to describe self-care measures that may prevent or decrease complications will improve Outcome: Progressing Goal: Knowledge of disease or condition will improve Outcome: Progressing Goal: Knowledge of the prescribed therapeutic regimen will improve Outcome: Progressing Goal: Knowledge of prevention and discharge planning will improve Outcome: Progressing Problem: Coping: Goal: Ability to adjust to condition or change in health will improve Outcome: Progressing Problem: Fluid Volume: Goal: Ability to maintain a balanced intake and output will improve Outcome: Progressing Problem: Health Behavior: Goal: Ability to identify and alter actions that are detrimental to health will improve Outcome: Progressing Goal: Ability to identify and utilize available resources and services will improve Outcome: Progressing Goal: Ability to manage health-related needs will improve Outcome: Progressing Problem: Nutritional: Goal: Maintenance of adequate nutrition will improve Outcome: Progressing Goal: Progress toward achieving an optimal weight will improve Outcome: Progressing Problem: Physical Regulation: Goal: Complications related to the disease process, condition or treatment will be avoided or minimized Outcome: Progressing Goal: Diagnostic test results will improve Outcome: Progressing Problem: Skin Integrity: Goal: Risk for impaired skin integrity will decrease Outcome: Progressing Problem: Health Behavior: Goal: Understanding of discharge needs will improve Outcome: Progressing * Plan of Care - Marcos Yousif RN - 02/13/2023 7:17 PM CDT Goals: Clinical Goals for the Shift: Monitor blood sugar, labs, and vital signs Summary: Problem: Lack of Knowledge Goal: Knowledge of [...] Goal: Pain level will decrease Outcome: Progressing Problem: Lack of Knowledge: Goal: Ability to describe self-care measures that may prevent or decrease complications will improve Outcome: Progressing Goal: Knowledge of disease or condition will improve Outcome: Progressing Goal: Knowledge of the prescribed therapeutic regimen will improve Outcome: Progressing Goal: Knowledge of prevention and discharge planning will improve Outcome: Progressing Problem: Health Behavior: Goal: Ability to identify and alter actions that are detrimental to health will improve Outcome: Progressing Goal: Ability to identify and utilize available resources and services will improve Outcome: Progressing Goal: Ability to manage health-related needs will improve Outcome: Progressing * Plan of Care - Susie Hutton RN - 02/13/2023 5:13 AM CDT Goals: Clinical Goals for the Shift: Monitor blood sugar, labs, and vital signs Summary: Problem: Lack of Knowledge Goal: Knowledge of [...] Goal: Pain level will decrease Outcome: Progressing Problem: Lack of Knowledge: Goal: Ability to describe self-care measures that may prevent or decrease complications will improve Outcome: Progressing Goal: Knowledge of disease or condition will improve Outcome: Progressing Goal: Knowledge of the prescribed therapeutic regimen will improve Outcome: Progressing Goal: Knowledge of prevention and discharge planning will improve Outcome: Progressing Problem: Coping: Goal: Ability to adjust to condition or change in health will improve Outcome: Progressing Problem: Fluid Volume: Goal: Ability to maintain a balanced intake and output will improve Outcome: Progressing Problem: Health Behavior: Goal: Ability to identify and alter actions that are detrimental to health will improve Outcome: Progressing Goal: Ability to identify and utilize available resources and services will improve Outcome: Progressing Goal: Ability to manage health-related needs will improve Outcome: Progressing Problem: Nutritional: Goal: Maintenance of adequate nutrition will improve Outcome: Progressing Goal: Progress toward achieving an optimal weight will improve Outcome: Progressing Problem: Physical Regulation: Goal: Complications related to the disease process, condition or treatment will be avoided or minimized Outcome: Progressing Goal: Diagnostic test results will improve Outcome: Progressing Problem: Skin Integrity: Goal: Risk for impaired skin integrity will decrease Outcome: Progressing Problem: Health Behavior: Goal: Understanding of discharge needs will improve Outcome: Progressing * Plan of Mane - Marcos Yousif RN - 02/12/2023 6:05 PM CDT Goals: Clinical Goals for the Shift: Monitor blood sugar, labs, and vital signs Summary: Problem: Lack of Knowledge Goal: Knowledge of [...] Goal: Pain level will decrease Outcome: Progressing Problem: Lack of Knowledge: Goal: Ability to describe self-care measures that may prevent or decrease complications will improve Outcome: Progressing Goal: Knowledge of disease or condition will improve Outcome: Progressing Goal: Knowledge of the prescribed therapeutic regimen will improve Outcome: Progressing Goal: Knowledge of prevention and discharge planning will improve Outcome: Progressing Problem: Health Behavior: Goal: Ability to identify and alter actions that are detrimental to health will improve Outcome: Progressing Goal: Ability to identify and utilize available resources and services will improve Outcome: Progressing Goal: Ability to manage health-related needs will improve Outcome: Progressing Problem: Nutritional: Goal: Maintenance of adequate nutrition will improve Outcome: Progressing Goal: Progress toward achieving an optimal weight will improve Outcome: Progressing Problem: Physical Regulation: Goal: Complications related to the disease process, condition or treatment will be avoided or minimized Outcome: Progressing Goal: Diagnostic test results will improve Outcome: Progressing * Plan of Care - Bronwyn Corona RN - 02/11/2023 6:37 PM CDT Goals: Clinical Goals for the Shift: Monitor blood sugar, labs, and vital signs Summary: Problem: Lack of Knowledge Goal: Knowledge of [...] Goal: Pain level will decrease Outcome: Progressing Problem: Lack of Knowledge: Goal: Ability to describe self-care measures that may prevent or decrease complications will improve Outcome: Progressing Goal: Knowledge of disease or condition will improve Outcome: Progressing Goal: Knowledge of the prescribed therapeutic regimen will improve Outcome: Progressing Goal: Knowledge of prevention and discharge planning will improve Outcome: Progressing Problem: Coping: Goal: Ability to adjust to condition or change in health will improve Outcome: Progressing Problem: Fluid Volume: Goal: Ability to maintain a balanced intake and output will improve Outcome: Progressing Problem: Health Behavior: Goal: Ability to identify and alter actions that are detrimental to health will improve Outcome: Progressing Goal: Ability to identify and utilize available resources and services will improve Outcome: Progressing Goal: Ability to manage health-related needs will improve Outcome: Progressing Problem: Nutritional: Goal: Maintenance of adequate nutrition will improve Outcome: Progressing Goal: Progress toward achieving an optimal weight will improve Outcome: Progressing Problem: Physical Regulation: Goal: Complications related to the disease process, condition or treatment will be avoided or minimized Outcome: Progressing Goal: Diagnostic test results will improve Outcome: Progressing Problem: Skin Integrity: Goal: Risk for impaired skin integrity will decrease Outcome: Progressing Problem: Health Behavior: Goal: Understanding of discharge needs will improve Outcome: Progressing * Plan of Care - Michelle Alexis RN - 02/11/2023 4:24 AM CDT Goals: Clinical Goals for the Shift: Monitor BGL; treat hyperglycemia per protocol; NPO with water and icechips; stable VS; comfort and rest during this shift. Summary: Assessment of patient???s baseline is established at the beginning of the shift in flowsheets. Patient reassessed per order, unexpected findings and/or deviations from baseline are captured in flowsheets. Frequent safety checks and comfort rounds provided. Orders and/or nursing care completed as indicated. Patient monitored for response to interventions and treatments as documented in flowsheets. Plan of care discussed with patient/tax compliance representative, including as it relates to Principal Problem: Diabetic ketoacidosis without coma associated with other specified diabetes mellitus (HCC) Problem: Lack of Knowledge Goal: Knowledge of disease or condition will improve 02/11/2023423 by Michelle Alexis RN Outcome: Progressing 02/11/2023423 by Michelle Alexis RN Outcome: Progressing Problem: Lack of Knowledge: Goal: Ability to develop a pain control plan will improve 02/11/2023423 by Michelle Alexis RN Outcome: Progressing 02/11/2023423 by Michelle Alexis RN Outcome: Progressing Goal: Ability to identify pain intensity on a pain scale and rate it consistently will improve 02/11/2023423 by Alexis, Michelle I., RN Outcome: Progressing 02/11/2023423 by Michelle Alexis I., RN Outcome: Progressing Goal: Ability to notify healthcare provider of pain before it becomes unmanageable or unbearable will improve 02/11/2023423 by Michelle Alexis I., RN Outcome: Progressing 02/11/2023423 by Michelle Alexis I., RN Outcome: Progressing Problem: Medication: Goal: Satisfaction with pain management regimen will improve 02/11/2023423 by Michelle Alexis I., RN Outcome: Progressing 02/11/2023423 by Michelle Alexis I., RN Outcome: Progressing Problem: Sensory: Goal: Ability to identify factors that increase the pain will improve 02/11/2023423 by Michelle Alexis I., RN Outcome: Progressing 02/11/2023423 by Michelle Alexis I., RN Outcome: Progressing Goal: Pain level will decrease 02/11/2023423 by Michelle Alexis I., RN Outcome: Progressing 02/11/2023423 by Michelle Alexis I., RN Outcome: Progressing Problem: Lack of Knowledge: Goal: Ability to describe self-care measures that may prevent or decrease complications will improve 02/11/2023423 by Michelle Alexis I., RN Outcome: Progressing 02/11/2023423 by Michelle Alexis I., RN Outcome: Progressing Goal: Knowledge of disease or condition will improve 02/11/2023423 by Michelle Alexis I., RN Outcome: Progressing 02/11/2023423 by Michelle Alexis I., RN Outcome: Progressing Goal: Knowledge of the prescribed therapeutic regimen will improve 02/11/2023423 by Michelle Alexis I., RN Outcome: Progressing 02/11/2023423 by Michelle Alexis I., RN Outcome: Progressing Goal: Knowledge of prevention and discharge planning will improve 02/11/2023423 by Michelle Alexis I., RN Outcome: Progressing 02/11/2023423 by Michelle Alexis I., RN Outcome: Progressing Problem: Coping: Goal: Ability to adjust to condition or change in health will improve 02/11/2023423 by Michelle Alexis I., RN Outcome: Progressing 02/11/2023423 by Michelle Alexis I., RN Outcome: Progressing Problem: Fluid Volume: Goal: Ability to maintain a balanced intake and output will improve 02/11/2023423 by Michelle Alexis I., RN Outcome: Progressing 02/11/2023423 by Michelle Alexis I., RN Outcome: Progressing Problem: Health Behavior: Goal: Ability to identify and alter actions that are detrimental to health will improve 02/11/2023423 by Michelle Alexis I., RN Outcome: Progressing 02/11/2023423 by Michelle Alexis I., RN Outcome: Progressing Goal: Ability to identify and utilize available resources and services will improve 02/11/2023423 by Michelle Alexis I., RN Outcome: Progressing 02/11/2023423 by Michelle Alexis I., RN Outcome: Progressing Goal: Ability to manage health-related needs will improve 02/11/2023423 by Michelle Alexis I., RN Outcome: Progressing 02/11/2023423 by Michelle Alexis I., RN Outcome: Progressing Problem: Nutritional: Goal: Maintenance of adequate nutrition will improve 02/11/2023423 by Michelle Alexis I., RN Outcome: Progressing 02/11/2023423 by Michelle Alexis I., RN Outcome: Progressing Goal: Progress toward achieving an optimal weight will improve 02/11/2023423 by Michelle Alexis I., RN Outcome: Progressing 02/11/2023423 by Michelle Alexis I., RN Outcome: Progressing Problem: Physical Regulation: Goal: Complications related to the disease process, condition or treatment will be avoided or minimized 02/11/2023423 by Michelle Alexis I., RN Outcome: Progressing 02/11/2023423 by Michelle Alexis I., RN Outcome: Progressing Goal: Diagnostic test results will improve 02/11/2023423 by Michelle Alexis I., RN Outcome: Progressing 02/11/2023423 by Michelle Alexis I., RN Outcome: Progressing Problem: Skin Integrity: Goal: Risk for impaired skin integrity will decrease 02/11/2023423 by Michelle Alexis RN Outcome: Progressing 02/11/2023 0424 by Michelle Alexis RN Outcome: Progressing documented in this encounter Plan of Treatment Pending Results Name Type Priority Associated Diagnoses Date /Time Comprehensive metabolic panel Lab Routine 02/14/2023 3:48 AM CDT Scheduled Orders Name Type Priority Associated Diagnoses Orde r Schedule Comprehensive metabolic panel Lab Routine Once for 1 Occur rences starting 02/14/2023 until 02/14/2023 documented as of this encounter Procedures Procedure Name Priority Date/Time Associated Diagnosis Comments POCT GLUCOSE DEVICE Routine 02/15/2023 1 1:50 AM CDT EGFR Routine 02/15/2023 11:05 AM CDT PHOSPHORUS Routine 02/15/2023 11:05 AM CDT MAGNESIUM Routine 02/15/2023 11:05 AM CDT BASIC METABOLIC PANEL Routine 02/15/2023 11:05 AM CDT POCT GLUCOSE DEVICE Routine 02/15/2023 7 :53 AM CDT CBC WITHOUT DIFFERENTIAL Routine 02/15/2023 6:51 AM CDT POCT GLUCOSE DEVICE Routine 02/15/2023 1 :44 AM CDT POCT GLUCOSE DEVICE Routine 02/14/2023 8 :15 PM CDT POCT GLUCOSE DEVICE Routine 02/14/2023 4 :14 PM CDT POCT GLUCOSE DEVICE Routine 02/14/2023 1 1:09 AM CDT CRITICAL CARE Routine 02/14/2023 7:39 AM CDT Diabetic ketoacidosis without coma associated with other specified diabetes mellitus (HCC) Acute pancreatitis, unspecified complication status, unspecified pancreatitis type Hypertriglyceridemia POCT GLUCOSE DEVICE Routine 02/14/2023 6 :45 AM CDT EGFR Routine 02/14/2023 3:48 AM CDT CBC WITHOUT DIFFERENTIAL Routine 02/14/2023 3:48 AM CDT PHOSPHORUS Routine 02/14/2023 3:48 AM CDT MAGNESIUM Routine 02/14/2023 3:48 AM CDT COMPREHENSIVE METABOLIC PANEL Routine 02/14/2023 3:48 AM CDT CRITICAL CARE Routine 02/13/2023 11:18 PM CDT Diabetic ketoacidosis without coma associated with other specified diabetes mellitus (HCC) Acute pancreatitis, unspecified complication status, unspecified pancreatitis type POCT GLUCOSE DEVICE Routine 02/13/2023 8 :06 PM CDT POCT GLUCOSE DEVICE Routine 02/13/2023 6 :15 PM CDT POCT GLUCOSE DEVICE Routine 02/13/2023 5 :22 PM CDT POCT GLUCOSE DEVICE Routine 02/13/2023 4 :21 PM CDT POCT GLUCOSE DEVICE Routine 02/13/2023 3 :21 PM CDT POCT GLUCOSE DEVICE Routine 02/13/2023 2 :10 PM CDT POCT GLUCOSE DEVICE Routine 02/13/2023 1 :15 PM CDT POCT GLUCOSE DEVICE Routine 02/13/2023 1 1:43 AM CDT POCT GLUCOSE DEVICE Routine 02/13/2023 1 1:18 AM CDT POCT GLUCOSE DEVICE Routine 02/13/2023 1 0:13 AM CDT POCT GLUCOSE DEVICE Routine 02/13/2023 8 :50 AM CDT POCT GLUCOSE DEVICE Routine 02/13/2023 7 :47 AM CDT CRITICAL CARE Routine 02/13/2023 7:00 AM CDT Diabetic ketoacidosis without coma associated with other specified diabetes mellitus (HCC) Acute pancreatitis, unspecified complication status, unspecified pancreatitis type POCT GLUCOSE DEVICE Routine 02/13/2023 6 :12 AM CDT EGFR STAT 02/13/2023 5:44 AM CDT BASIC METABOLIC PANEL STAT 02/13/2023 5:44 AM CDT CBC WITHOUT DIFFERENTIAL Routine 02/13/2023 4:52 AM CDT POCT GLUCOSE DEVICE Routine 02/13/2023 4 :50 AM CDT POCT GLUCOSE DEVICE Routine 02/13/2023 3 :07 AM CDT POCT GLUCOSE DEVICE Routine 02/13/2023 1 :02 AM CDT POCT GLUCOSE DEVICE Routine 02/12/2023 1 1:59 PM CDT CRITICAL CARE Routine 02/12/2023 11:15 PM CDT Diabetic ketoacidosis without coma associated with other specified diabetes mellitus (HCC) POCT GLUCOSE DEVICE Routine 02/12/2023 9 :57 PM CDT POCT GLUCOSE DEVICE Routine 02/12/2023 9 :21 PM CDT EGFR Timed 02/12/2023 8:03 PM CDT MAGNESIUM Timed 02/12/2023 8:03 PM CDT BASIC METABOLIC PANEL Timed 02/12/2023 8:03 PM CDT POCT GLUCOSE DEVICE Routine 02/12/2023 7 :56 PM CDT POCT GLUCOSE DEVICE Routine 02/12/2023 6 :34 PM CDT POCT GLUCOSE DEVICE Routine 02/12/2023 5 :48 PM CDT POCT GLUCOSE DEVICE Routine 02/12/2023 4 :37 PM CDT POCT GLUCOSE DEVICE Routine 02/12/2023 3 :25 PM CDT POCT GLUCOSE DEVICE Routine 02/12/2023 2 :36 PM CDT POCT GLUCOSE DEVICE Routine 02/12/2023 2 :11 PM CDT POCT GLUCOSE DEVICE Routine 02/12/2023 1 :21 PM CDT POCT GLUCOSE DEVICE Routine 02/12/2023 1 2:13 PM CDT POCT GLUCOSE DEVICE Routine 02/12/2023 1 1:03 AM CDT POCT GLUCOSE DEVICE Routine 02/12/2023 1 0:07 AM CDT POTASSIUM LEVEL STAT 02/12/2023 9:59 AM CDT HEPATIC FUNCTION PANEL STAT 02/12/2023 9:59 AM CDT POCT GLUCOSE DEVICE Routine 02/12/2023 9 :01 AM CDT POCT GLUCOSE DEVICE Routine 02/12/2023 8 :09 AM CDT POCT GLUCOSE DEVICE Routine 02/12/2023 7 :22 AM CDT CRITICAL CARE Routine 02/12/2023 6:47 AM CDT Diabetic ketoacidosis without coma associated with other specified diabetes mellitus (HCC) Acute pancreatitis, unspecified complication status, unspecified pancreatitis type POCT GLUCOSE DEVICE Routine 02/12/2023 6 :03 AM CDT POCT GLUCOSE DEVICE Routine 02/12/2023 5 :01 AM CDT EGFR Routine 02/12/2023 4:51 AM CDT PHOSPHORUS Routine 02/12/2023 4:51 AM CDT MAGNESIUM Routine 02/12/2023 4:51 AM CDT COMPREHENSIVE METABOLIC PANEL Routine 02/12/2023 4:51 AM CDT POCT GLUCOSE DEVICE Routine 02/12/2023 4:00 AM CDT DIFFERENTIAL AUTO Routine 02/12/2023 3:3 7 AM CDT CBC WITH AUTO DIFFERENTIAL Routine 02/12/2023 3:37 AM CDT POCT GLUCOSE DEVICE Routine 02/12/2023 3 :03 AM CDT POCT GLUCOSE DEVICE Routine 02/12/2023 1 :56 AM CDT POCT GLUCOSE DEVICE Routine 02/12/2023 1 2:26 AM CDT POCT GLUCOSE DEVICE Routine 02/11/2023 1 1:10 PM CDT POCT GLUCOSE DEVICE Routine 02/11/2023 1 0:17 PM CDT POCT GLUCOSE DEVICE Routine 02/11/2023 9 :11 PM CDT POCT GLUCOSE DEVICE Routine 02/11/2023 8 :15 PM CDT CRITICAL CARE Routine 02/11/2023 8:07 PM CDT Diabetic ketoacidosis without coma associated with other specified diabetes mellitus (HCC) Acute pancreatitis, unspecified complication status, unspecified pancreatitis type EGFR STAT 02/11/2023 7:22 PM CDT TRIGLYCERIDES STAT 02/11/2023 7:22 PM CDT PHOSPHORUS STAT 02/11/2023 7:22 PM CDT MAGNESIUM STAT 02/11/2023 7:22 PM CDT COMPREHENSIVE METABOLIC PANEL STAT 02/11/2023 7:22 PM CDT POCT GLUCOSE DEVICE Routine 02/11/2023 7 :19 PM CDT POCT GLUCOSE DEVICE Routine 02/11/2023 6 :18 PM CDT POCT GLUCOSE DEVICE Routine 02/11/2023 5 :03 PM CDT POCT GLUCOSE DEVICE Routine 02/11/2023 4 :02 PM CDT POCT GLUCOSE DEVICE Routine 02/11/2023 3 :18 PM CDT POCT GLUCOSE DEVICE Routine 02/11/2023 2 :23 PM CDT POCT GLUCOSE DEVICE Routine 02/11/2023 1 :26 PM CDT POCT GLUCOSE DEVICE Routine 02/11/2023 1 2:10 PM CDT POCT GLUCOSE DEVICE Routine 02/11/2023 1 1:02 AM CDT POCT GLUCOSE DEVICE Routine 02/11/2023 1 0:12 AM CDT CRITICAL CARE Routine 02/11/2023 9:37 AM CDT Diabetic ketoacidosis without coma associated with other specified diabetes mellitus (HCC) Acute pancreatitis, unspecified complication status, unspecified pancreatitis type POCT GLUCOSE DEVICE Routine 02/11/2023 9 :00 AM CDT POCT GLUCOSE DEVICE Routine 02/11/2023 7 :07 AM CDT POCT GLUCOSE DEVICE Routine 02/11/2023 6 :05 AM CDT EGFR Timed 02/11/2023 5:47 AM CDT DIFFERENTIAL AUTO Routine 02/11/2023 5:4 7 AM CDT CBC WITH AUTO DIFFERENTIAL Routine 02/11/2023 5:47 AM CDT PHOSPHORUS Timed 02/11/2023 5:47 AM CDT MAGNESIUM Timed 02/11/2023 5:47 AM CDT BASIC METABOLIC PANEL Timed 02/11/2023 5:47 AM CDT POCT GLUCOSE DEVICE Routine 02/11/2023 5 :08 AM CDT POCT GLUCOSE DEVICE Routine 02/11/2023 4 :06 AM CDT CRITICAL CARE Routine 02/11/2023 4:01 AM CDT Diabetic ketoacidosis without coma associated with other specified diabetes mellitus (HCC) POCT GLUCOSE DEVICE Routine 02/11/2023 3 :36 AM CDT POCT GLUCOSE DEVICE Routine 02/11/2023 2 :41 AM CDT POCT GLUCOSE DEVICE Routine 02/11/2023 1 :58 AM CDT POCT GLUCOSE DEVICE Routine 02/11/2023 1 2:55 AM CDT POCT GLUCOSE DEVICE Routine 02/10/2023 1 1:53 PM CDT EGFR Timed 02/10/2023 11:50 PM CDT PHOSPHORUS Timed 02/10/2023 11:50 PM CDT MAGNESIUM Timed 02/10/2023 11:50 PM CDT BASIC METABOLIC PANEL Timed 02/10/2023 11:50 PM CDT POCT GLUCOSE DEVICE Routine 02/10/2023 1 0:56 PM CDT POCT GLUCOSE DEVICE Routine 02/10/2023 8:50 PM CDT EGFR Timed 02/10/2023 8:34 PM CDT BETA-HYDROXYBUTYRATE STAT 02/10/2023 8:34 PM CDT PHOSPHORUS Timed 02/10/2023 8:34 PM CDT MAGNESIUM Timed 02/10/2023 8:34 PM CDT BASIC METABOLIC PANEL Timed 02/10/2023 8:34 PM CDT POCT GLUCOSE DEVICE Routine 02/10/2023 7 :52 PM CDT POCT GLUCOSE DEVICE Routine 02/10/2023 7 :17 PM CDT POCT GLUCOSE DEVICE Routine 02/10/2023 6 :[address] ABDOMEN PELVIS W CONTRAST ED 02/10/2023 6:39 PM CDT XR CHEST 1 VIEW ED 02/10/2023 6:05 PM CDT LACTATE STAT 02/10/2023 6:02 PM CDT EGFR STAT 02/10/2023 6:02 PM CDT PHOSPHORUS STAT 02/10/2023 6:02 PM CDT MAGNESIUM STAT 02/10/2023 6:02 PM CDT BASIC METABOLIC PANEL STAT 02/10/2023 6:02 PM CDT POCT GLUCOSE DEVICE Routine 02/10/2023 6 :00 PM CDT BLOOD GAS, VENOUS STAT 02/10/2023 4:2 4 PM CDT POCT GLUCOSE DEVICE Routine 02/10/2023 4 :13 PM CDT BLOOD CULTURE STAT 02/10/2023 3:56 PM CDT BLOOD CULTURE STAT 02/10/2023 3:56 PM CDT URINALYSIS AND REFLEX TO MICROSCOPIC AND CULTURE STAT 02/10/2023 3:32 PM CDT URINALYSIS, MICROSCOPIC ONLY STAT 02/10/2023 3:32 PM CDT ECG 12-LEAD Routine 02/10/2023 3:26 PM CDT SEPSIS LACTATE WITH REFLEX STAT 02/10/2023 3:22 PM CDT EGFR STAT 02/10/2023 3:22 PM CDT CBC WITH AUTO DIFFERENTIAL STAT 02/10/2023 3:22 PM CDT MANUAL DIFFERENTIAL STAT 02/10/2023 3 :22 PM CDT LIPASE STAT 02/10/2023 3:22 PM CDT COMPREHENSIVE METABOLIC PANEL STAT 02/10/2023 3:22 PM CDT HEMOGLOBIN A1C STAT 02/10/2023 3:21 PM CDT ETHANOL Add-On 02/10/2023 3:21 PM CDT documented in this encounter Results * (ABNORMAL) POCT glucose (02/15/2023 11:50 AM CDT) Glucose, POC 346(H) 70 - 199 mg/dL [facility] Blood 02/15/2023 11:5 0 AM CDT 02/15/2023 11:50 AM CDT us Arnold Xiong MD LAB POCT ORDERABLES - DEVICE Fin al Result [facility] [address] [place] [address] * eGFR (02/15/2023 11:05 AM CDT) eGFR 117 mL/min/1. 73 m2 [...] Current interpretive data was last reviewed 2021. Blood 02/15/2023 11:0 5 AM CDT 02/15/2023 11:38 AM CDT us Arnold Xiong MD LAB BLOOD ORDERABLES Final Resul t Performing Organization Address City/[facility] Co de Phone Number [address] [employer] [place] [address] * (ABNORMAL) Phosphorus (02/15/2023 11:05 AM CDT) Phosphorus, pl 4.7(H) 2.3 - 4.5 mg/dL [facility] Blood 02/15/2023 11:0 5 AM CDT 02/15/2023 11:38 AM CDT us Arnold Xiong MD LAB BLOOD ORDERABLES Final Resul t Performing Organization Address [facility] de Phone Number [address] [address] * Magnesium (02/15/2023 11:05 AM CDT) Magnesium 1.9 1.4 - 2.5 mg/dL [facility] Blood 02/15/2023 11:0 5 AM CDT 02/15/2023 11:38 AM CDT Arnold Xiong MD LAB BLOOD ORDERABLES Final Resul t Performing Organization Address [facility] Co de Phone Number [address] [employer] [place] [address] * (ABNORMAL) Basic metabolic panel (02/15/2023 11:05 AM CDT) Sodium 132(L) 135 - 145 mmol/L [facility] Potassium, pl 4.5 3.3 - 4.9 mmol/L [facility] Chloride 94(L) 97 - 110 mmol/L [facility] CO2 30 22 - 32 mmol/L [facility] Anion gap 8 2 - 15 mmol/L [facility] BUN 10 8 - 25 mg/dL [facility] Creatinine 0.70(L) 0.80 - 1.30 mg/dL [facility] Glucose 378(H) 70 - 199 mg/dL [facility] Comment: Delta - Results Reviewed Interpretive [...] Current interpretive data was last revised 2022. Calcium 9.0 8.5 - 10.3 mg/dL [facility] Blood 02/15/2023 11:0 5 AM CDT 02/15/2023 11:38 AM CDT Arnold Xiong MD LAB BLOOD ORDERABLES Final Resul t Performing Organization Address [facility] Co de Phone Number [address] [place] [place] [address] * POCT glucose (02/15/2023 7:53 AM CDT) [facility] Signature Glucose, POC 178 70 - 199 mg/dL [facility] Blood 02/15/2023 7:53 AM CDT 02/15/2023 7:53 AM CDT Arnold Xiong MD LAB POCT ORDERABLES - DEVICE Fin al Result Performing Organization Address [facility] Co de Phone Number [address] [place] [address] * (ABNORMAL) CBC without differential (02/15/2023 6:51 AM CDT) [facility] WBC 8.1 3.8 - 9.9 K/cumm [facility] Hgb 12.7(L) 13.0 - 17.5 g/dL [facility] Hct 36.0(L) 38.9 - 50.3 % [facility] Plt 202 150 - 400 K/cumm [facility] MPV 9.2 9.1 - 12.3 fL [facility] RBC 4.10(L) 4.30 - 5.80 M/cumm [facility] MCV 87.8 81.3 - 96.4 fL [facility] MCH 31.0 27.1 - 33.3 pg [facility] MCHC 35.3 32.3 - 35.7 g/dL [facility] RDW CV 13.3 11.1 - 14.9 % [facility] RDW SD 42.9 35.7 - 48.1 fL [facility] NRBC abs 0.00 0.00 - 0.01 K/cumm [facility] Blood 02/15/2023 6:51 AM CDT 02/15/2023 7:14 AM CDT Robert GLASER LAB BLOOD ORDERABLES Fi nal Result Performing Organization Address City/[facility] Co de Phone Number [address] [place] [address] * POCT glucose (02/15/2023 1:44 AM CDT) [facility] Glucose, POC 181 70 - 199 mg/dL [facility] Glucose comment 1 Use This Result [facility] Glucose comment 2 RN/MD Notified [facility] Blood 02/15/2023 1:44 AM CDT 02/15/2023 1:44 AM CDT Prabha Cobb MD LAB POCT ORDERABLES - DEVICE F inal Result Performing Organization Address City/[facility]/ZIP Co de Phone Number [address] [place] [address] * (ABNORMAL) POCT glucose (02/14/2023 8:15 PM CDT) Glucose, POC 246(H) 70 - 199 mg/dL [facility] Glucose comment 1 Use This Result [facility] Glucose comment 2 RN/MD Notified [facility] Blood 02/14/2023 8:15 PM CDT 02/14/2023 8:15 PM CDT Prabha Cobb MD LAB POCT ORDERABLES - DEVICE F inal Result Performing Organization Address [facility] Co de Phone Number [address] [employer] [place] [address] * POCT glucose (02/14/2023 4:14 PM CDT) Glucose, POC 198 70 - 199 mg/dL [facility] Blood 02/14/2023 4:14 PM CDT 02/14/2023 4:14 PM CDT Prabha Cobb MD LAB POCT ORDERABLES - DEVICE F inal Result Performing Organization Address [facility] de Phone Number [address] [employer] [place] [address] * POCT glucose (02/14/2023 11:09 AM CDT) Glucose, POC 183 70 - 199 mg/dL [facility] Glucose comment 1 Use This Result [facility] Blood 02/14/2023 11:0 9 AM CDT 02/14/2023 11:09 AM CDT Mirella Coleman MD LAB POC T ORDERABLES - DEVICE Final Result Performing Organization Address City/[facility] Co de Phone Number [address] [employer] [place] [address] * Critical Care (02/14/2023 7:39 AM CDT) Narrative Dylan Roa MD - 02/14/2023 7:39 AM CDT Robert Carcamo PA ? 02/14/2023 ??1:37 PM Critical Care Performed by: Robert Carcamo PA Authorized by: Robert Carcamo PA ?? CRITICAL CARE: ??Team: ??[facility] ??Shift: ??AM ??Level of Billing: ??Subsequent Hospital Visit Level 3 ??My time spent with this patient was 65 minutes: Critical Provider Statement: I have seen and examined the patient on this day of service. I have reviewed and confirmed the history, physical exam, laboratory, and radiographic data as documented in the ICU note. I have reviewed and discussed my treatment plan with the patient's team and other medical/professional benefits sales consultant staff. This time was in addition to and separate from care provided by other practitioners on this day of service. ?? us Robert GLASER IN CLINIC/BEDSIDE ORDER ANISH Final Result * POCT glucose (02/14/2023 6:45 AM CDT) [facility] Glucose, POC 91 70 - 199 mg/dL [facility] Blood 02/14/2023 6:45 AM CDT 02/14/2023 6:45 AM CDT Mirella Coleman MD LAB POC T ORDERABLES - DEVICE Final Result [facility] [address] Department of Laboratories [place], [place] [id number] * (ABNORMAL) Comprehensive metabolic panel (02/14/2023 3:48 AM CDT) [facility] Sodium 136 135 - 145 mmol/L [facility] Potassium, pl 3.5 3.3 - 4.9 mmol/L [facility] Comment:HEMOLYZED: Slightly hemolyzed.Hemolysis interferes with the above test. Chloride 99 97 - 110 mmol/L [facility] CO2 28 22 - 32 mmol/L [facility] Anion gap 9 2 - 15 mmol/L [facility] BUN 9 8 - 25 mg/dL [facility] Creatinine 0.50(L) 0.80 - 1.30 mg/dL [facility] Glucose 87 70 - 199 mg/dL [facility] Comment: Delta - Results Reviewed Interpretive [...] Current interpretive data was last revised 2022. Calcium 8.8 8.5 - 10.3 mg/dL [facility] Bilirubin, total 0.4 0.1 - 1.2 mg/dL [facility] Protein, pl 6.0(L) 6.5 - 8.5 g/dL [facility] Albumin 3.0(L) 3.5 - 5.0 g/dL [facility] Alk phos 74 40 - 130 Units/L [facility] ALT 5(L) 7 - 55 Units/L [facility] Comment: HEMOLYZED: Slightly hemolyzed. Hemolysis interferes with the above test. Lipemic specimen AST 14 10 - 50 Units/L [facility] Comment: HEMOLYZED: Slightly hemolyzedHemolysis interferes with the above test. Lipemic specimen Blood 02/14/2023 3:48 AM CDT 02/14/2023 4:13 AM CDT us Mirella Coleman MD LAB BLO OD ORDERABLES Final Result [facility] [address] Department [place] [address] * eGFR (02/14/2023 3:48 AM CDT) Pathologist [facility] eGFR 129 mL/min/1. 73 m2 [facility] Comment: Interpretive Data Reference Interval Normal ?>/= [...] Current interpretive data was last reviewed 2021. Blood 02/14/2023 3:48 AM CDT 02/14/2023 4:13 AM CDT us Mirella Coleman MD LAB BLO OD ORDERABLES Final Result Performing Organization Address [facility] Co de Phone Number [place] [phone] [place] [address] * Phosphorus (02/14/2023 3:48 AM CDT) Phosphorus, pl 4.4 2.3 - 4.5 mg/dL [facility] Blood 02/14/2023 3:48 AM CDT 02/14/2023 4:13 AM CDT us Robert GLASER LAB BLOOD ORDERABLES Fi nal Result Performing Organization Address [facility] Co de Phone Number [address] [place] [address] * Magnesium (02/14/2023 3:48 AM CDT) Pathologist [facility] Magnesium 1.9 1.4 - 2.5 mg/dL [facility] Blood 02/14/2023 3:48 AM CDT 02/14/2023 4:13 AM CDT Robert GLASER LAB BLOOD ORDERABLES Fi nal Result [address] [employer] [place] [address] * (ABNORMAL) CBC without differential (02/14/2023 3:48 AM CDT) [facility] WBC 7.4 3.8 - 9.9 K/cumm [facility] Hgb 12.6(L) 13.0 - 17.5 g/dL [facility] Hct 34.6(L) 38.9 - 50.3 % [facility] Plt 213 150 - 400 K/cumm [facility] MPV 9.2 9.1 - 12.3 fL [facility] RBC 4.06(L) 4.30 - 5.80 M/cumm [facility] MCV 85.2 81.3 - 96.4 fL [facility] MCH 31.0 27.1 - 33.3 pg [facility] MCHC 36.4(H) 32.3 - 35.7 g/dL [facility] RDW CV 13.4 11.1 - 14.9 % [facility] RDW SD 41.7 35.7 - 48.1 fL [facility] NRBC abs 0.00 0.00 - 0.01 K/cumm [facility] Blood 02/14/2023 3:48 AM CDT 02/14/2023 4:13 AM CDT Robert GLASER LAB BLOOD ORDERABLES Fi nal Result [address] [employer] [place] [address] * Critical Care (02/13/2023 11:18 PM CDT) Narrative Mirella Coleman MD - 02/13/2023 11:18 PM CDT Mirella Coleman MD ? 02/14/2023 ??4:22 AM Critical Care Performed by: Mirella Coleman MD Authorized by: Mirella Coleman MD ?? CRITICAL CARE: ??Team: ??[facility] ??Shift: ??PM ??Level of Billing: ??Subsequent Hospital Visit Level 3 ??My time spent with this patient was 30 minutes: Critical Provider Statement: I have seen and examined the patient on this day of service. I have reviewed and confirmed the history, physical exam, laboratory, and radiographic data as documented in the ICU note. I have reviewed and discussed my treatment plan with the patient's team and other medical/professional benefits sales consultant staff. This time was in addition to and separate from care provided by other practitioners on this day of service. ?Acute electrolyte derangement, Diabetic Ketoacidosis and Hypo- or Hyperglycemia ??This time was spent by me doing the following: ? Active and frequent monitoring of intake/output and volumen status and Glycemic control ?? Active repletion of electrolytes ?? I spent time reviewing and interpreting data from bedside monitors, laboratory results, and imaging, I spent time discussing the management of this critically ill patient with consultants and the medical staff and I spent time documenting in the medical record us Mirella Coleman MD IN CLIN IC/BEDSIDE ORDERABLES Final Result * POCT glucose (02/13/2023 8:06 PM CDT) Glucose, POC 145 70 - 199 mg/dL [facility] Blood 02/13/2023 8:06 PM CDT 02/13/2023 8:06 PM CDT us Mirella Coleman MD LAB POC T ORDERABLES - DEVICE Final Result Performing Organization Address City/[facility]/ZIP Co de Phone Number [facility] [address] [employer] [place] [address] * (ABNORMAL) POCT glucose (02/13/2023 6:15 PM CDT) Glucose, POC 238(H) 70 - 199 mg/dL [facility] Glucose comment 1 Use This Result [facility] Glucose comment 2 Will Notify Nurse [facility] Blood 02/13/2023 6:15 PM CDT 02/13/2023 6:15 PM CDT Mirella Coleman MD LAB POC T ORDERABLES - DEVICE Final Result Performing Organization Address [facility] Co de Phone Number [facility] [address] [employer] [place] [address] * (ABNORMAL) POCT glucose (02/13/2023 5:22 PM CDT) Glucose, POC 276(H) 70 - 199 mg/dL [facility] Glucose comment 1 Use This Result [facility] Blood 02/13/2023 5:22 PM CDT 02/13/2023 5:22 PM CDT Mirella Coleman MD LAB POC T ORDERABLES - DEVICE Final Result Performing Organization Address City/[facility]/ZIP Co de Phone Number [facility] [address] [employer] [place] [address] * POCT glucose (02/13/2023 4:21 PM CDT) Glucose, POC 144 70 - 199 mg/dL [facility] Glucose comment 1 Use This Result [facility] Blood 02/13/2023 4:21 PM CDT 02/13/2023 4:21 PM CDT Mirella Coleman MD LAB POC T ORDERABLES - DEVICE Final Result Performing Organization Address [facility] de Phone Number [address] [address] * POCT glucose (02/13/2023 3:21 PM CDT) Glucose, POC 189 70 - 199 mg/dL [facility] Blood 02/13/2023 3:21 PM CDT 02/13/2023 3:21 PM CDT Mirella Coleman MD LAB POC T ORDERABLES - DEVICE Final Result Performing Organization Address [facility] de Phone Number [address] [employer] [place] [address] * (ABNORMAL) POCT glucose (02/13/2023 2:10 PM CDT) Glucose, POC 204(H) 70 - 199 mg/dL [facility] Glucose comment 1 Use This Result [facility] Blood 02/13/2023 2:10 PM CDT 02/13/2023 2:10 PM CDT Mirella Coleman MD LAB POC T ORDERABLES - DEVICE Final Result Performing Organization Address [facility] de Phone Number [address] [employer] [place] [address] * (ABNORMAL) POCT glucose (02/13/2023 1:15 PM CDT) Glucose, POC 216(H) 70 - 199 mg/dL [facility] Glucose comment 1 Use This Result [facility] Blood 02/13/2023 1:15 PM CDT 02/13/2023 1:15 PM CDT Mirella Coleman MD LAB POC T ORDERABLES - DEVICE Final Result Performing Organization Address [facility] Co de Phone Number [facility] [address] [employer] [place] [address] * (ABNORMAL) POCT glucose (02/13/2023 11:43 AM CDT) Glucose, POC 207(H) 70 - 199 mg/dL [facility] Glucose comment 1 Use This Result [facility] Blood 02/13/2023 11:4 3 AM CDT 02/13/2023 11:43 AM CDT Mirella Coleman MD LAB POC T ORDERABLES - DEVICE Final Result Performing Organization Address [facility] Co de Phone Number [facility] [address] * (ABNORMAL) POCT glucose (02/13/2023 11:18 AM CDT) Glucose, POC 220(H) 70 - 199 mg/dL [facility] Glucose comment 1 Use This Result [facility] Blood 02/13/2023 11:1 8 AM CDT 02/13/2023 11:18 AM CDT Mirella oCleman MD LAB POC T ORDERABLES - DEVICE Final Result Performing Organization Address [facility] Co de Phone Number [facility] [employer] [place] [address] * (ABNORMAL) POCT glucose (02/13/2023 10:13 AM CDT) Glucose, POC 313(H) 70 - 199 mg/dL [facility] Glucose comment 1 Use This Result [facility] Blood 02/13/2023 10:1 3 AM CDT 02/13/2023 10:13 AM CDT Mirella Coleman MD LAB POC T ORDERABLES - DEVICE Final Result Performing Organization Address [facility] de Phone Number [address] [address] * (ABNORMAL) POCT glucose (02/13/2023 8:50 AM CDT) Glucose, POC 355(H) 70 - 199 mg/dL [facility] Glucose comment 1 Use This Result [facility] [facility] Blood 02/13/2023 8:50 AM CDT 02/13/2023 8:50 AM CDT Mirella Coleman MD LAB POC T ORDERABLES - DEVICE Final Result Performing Organization Address [facility] de Phone Number [address] [address] * POCT glucose (02/13/2023 7:47 AM CDT) Glucose, POC 184 70 - 199 mg/dL [facility] Glucose comment 1 Use This Result [facility] Blood 02/13/2023 7:47 AM CDT 02/13/2023 7:47 AM CDT Mirella Coleman MD LAB POC T ORDERABLES - DEVICE Final Result Performing Organization Address [facility] de Phone Number [address] [address] * Critical Care (02/13/2023 7:00 AM CDT) Narrative Dylan Roa MD - 02/13/2023 7:00 AM CDT Robert Carcamo PA ? 02/13/2023 ??7:47 PM Critical Care Performed by: Robert Carcamo PA Authorized by: Robert Carcamo PA ?? CRITICAL CARE: ??Team: ??MHB ??Shift: ??AM ??Level of Billing: ??Subsequent Hospital Visit Level 3 ??My time spent with this patient was 65 minutes: Critical Provider Statement: I have seen and examined the patient on this day of service. I have reviewed and confirmed the history, physical exam, laboratory, and radiographic data as documented in the ICU note. I have reviewed and discussed my treatment plan with the patient's team and other medical/professional benefits sales consultant staff. This time was in addition to and separate from care provided by other practitioners on this day of service. ?? us Robert GLASER IN CLINIC/BEDSIDE ORDER ANISH Final Result * (ABNORMAL) POCT glucose (02/13/2023 6:12 AM CDT) Glucose, POC 243(H) 70 - 199 mg/dL [facility] Glucose comment 1 Use This Result [facility] Blood 02/13/2023 6:12 AM CDT 02/13/2023 6:12 AM CDT Mirella Coleman MD LAB POC T ORDERABLES - DEVICE Final Result [facility] [address] [place] [address] * eGFR (02/13/2023 5:44 AM CDT) eGFR 122 mL/min/1. 73 m2 [facility] Comment: Interpretive Data Reference Interval Normal ?>/= [...] Current interpretive data was last reviewed 2021. Blood 02/13/2023 5:44 AM CDT 02/13/2023 5:48 AM CDT Mirella Coleman MD LAB BLO OD ORDERABLES Final Result [facility] [address] [place] [address] * (ABNORMAL) Basic metabolic panel (02/13/2023 5:44 AM CDT) Sodium 133(L) 135 - 145 mmol/L [facility] Potassium, pl 3.5 3.3 - 4.9 mmol/L [facility] Chloride 103 97 - 110 mmol/L [facility] CO2 21(L) 22 - 32 mmol/L [facility] Anion gap 9 2 - 15 mmol/L [facility] BUN 10 8 - 25 mg/dL [facility] Creatinine 0.60(L) 0.80 - 1.30 mg/dL [facility] Glucose 252(H) 70 - 199 mg/dL [facility] Comment: Interpretive Data Fasting glucose >/= [...] Current interpretive data was last revised 2022. Calcium 8.4(L) 8.5 - 10.3 mg/dL [facility] Blood 02/13/2023 5:44 AM CDT 02/13/2023 5:48 AM CDT Mirella Coleman MD LAB BLO OD ORDERABLES Final Result Performing Organization Address [facility] Co de Phone Number [facility] [address] [place] [address] * (ABNORMAL) CBC without differential (02/13/2023 4:52 AM CDT) WBC 7.1 3.8 - 9.9 K/cumm [facility] Hgb 12.2(L) 13.0 - 17.5 g/dL [facility] Hct 32.6(L) 38.9 - 50.3 % [facility] Plt 189 150 - 400 K/cumm [facility] MPV 9.3 9.1 - 12.3 fL [facility] RBC 3.85(L) 4.30 - 5.80 M/cumm [facility] MCV 84.7 81.3 - 96.4 fL [facility] MCH 31.7 27.1 - 33.3 pg [facility] MCHC 37.4(H) 32.3 - 35.7 g/dL [facility] RDW CV 13.9 11.1 - 14.9 % [facility] RDW SD 43.1 35.7 - 48.1 fL [facility] NRBC abs 0.00 0.00 - 0.01 K/cumm [facility] Blood 02/13/2023 4:52 AM CDT 02/13/2023 5:04 AM CDT Robert GLASER LAB BLOOD ORDERABLES Fi nal Result Performing Organization Address City/[facility]/ZIP Co de Phone Number [facility] [place] [place] [address] * (ABNORMAL) POCT glucose (02/13/2023 4:50 AM CDT) Glucose, POC 247(H) 70 - 199 mg/dL [facility] Glucose comment 1 Use This Result [facility] Blood 02/13/2023 4:50 AM CDT 02/13/2023 4:50 AM CDT Mirella Coleman MD LAB POC T ORDERABLES - DEVICE Final Result [address] [employer] [place] [address] * POCT glucose (02/13/2023 3:07 AM CDT) Glucose, POC 184 70 - 199 mg/dL [facility] Blood 02/13/2023 3:07 AM CDT 02/13/2023 3:07 AM CDT Mirella Coleman MD LAB POC T ORDERABLES - DEVICE Final Result Performing Organization Address City/[facility]/ZIP Co de Phone Number [address] [employer] [place] [address] * POCT glucose (02/13/2023 1:02 AM CDT) Glucose, POC 122 70 - 199 mg/dL [facility] Glucose comment 1 Use This Result [facility] Blood 02/13/2023 1:02 AM CDT 02/13/2023 1:02 AM CDT Mirella Coleman MD LAB POC T ORDERABLES - DEVICE Final Result [address] [employer] [place] [address] * POCT glucose (02/12/2023 11:59 PM CDT) [facility] Signature Glucose, POC 98 70 - 199 mg/dL [facility] Glucose comment 1 Use This Result [facility] Blood 02/12/2023 11:5 9 PM CDT 02/12/2023 11:59 PM CDT us Mirella Coleman MD LAB POC T ORDERABLES - DEVICE Final Result [facility] [address] [place] [address] * Critical Care (02/12/2023 11:15 PM CDT) Narrative Mirella Coleman MD - 02/12/2023 11:15 PM CDT Mirella Coleman MD ? 02/13/2023 ??2:15 AM Critical Care Performed by: Mirella Coleman MD Authorized by: Mirella Coleman MD ?? CRITICAL CARE: ??Team: ??MHB ??Shift: ??PM ??Level of Billing: ??Critical Care ??My time spent with this patient was 35 minutes: Critical Provider Statement: I have seen and examined the patient on this day of service. I have reviewed and confirmed the history, physical exam, laboratory and radiologic data as documented in the signed ICU note. I have reviewed and discussed my treatment plan with the ICU team and other medical/professional benefits sales consultant staff, making frequent assessments and decisions regarding this patient's complex medical care. Critical Care time was exclusive of time spent performing separately billed procedures, treating other patients, and teaching. This time was in addition to and separate from critical care provided by other practitioners in my group on this day of service. Critical Care was necessary to treat or prevent imminent or life-threatening deterioration of the following conditions: ? Acute electrolyte derangement, Diabetic Ketoacidosis and Hypo- or Hyperglycemia ??This time was spent by me doing the following: ? Active and frequent monitoring of intake/output and volumen status and Glycemic control ?? Active repletion of electrolytes ?? I spent time reviewing and interpreting data from bedside monitors, laboratory results, and imaging, I spent time discussing the management of this critically ill patient with consultants and the medical staff and I spent time documenting in the medical record Mirella Coleman MD IN CLIN IC/BEDSIDE ORDERABLES Final Result * POCT glucose (02/12/2023 9:57 PM CDT) Glucose, POC 120 70 - 199 mg/dL [facility] Glucose comment 1 Use This Result [facility] Blood 02/12/2023 9:57 PM CDT 02/12/2023 9:57 PM CDT Mirella Coleman MD LAB POC T ORDERABLES - DEVICE Final Result Performing Organization Address [facility] Co de Phone Number [address] [employer] [place] [address] * POCT glucose (02/12/2023 9:21 PM CDT) Glucose, POC 120 70 - 199 mg/dL [facility] Blood 02/12/2023 9:21 PM CDT 02/12/2023 9:21 PM CDT Mirella Coleman MD LAB POC T ORDERABLES - DEVICE Final Result Performing Organization Address City/[facility]/ZIP Co de Phone Number [address] [employer] [place] [address] * eGFR (02/12/2023 8:03 PM CDT) eGFR 129 mL/min/1. 73 m2 [facility] Comment: Interpretive Data Reference Interval Normal ?>/= [...] Current interpretive data was last reviewed 2021. Blood 02/12/2023 8:03 PM CDT 02/12/2023 8:09 PM CDT Robert GLASER LAB BLOOD ORDERABLES Fi nal Result [facility] [address] [place] [address] * (ABNORMAL) Basic metabolic panel (02/12/2023 8:03 PM CDT) Sodium 128(L) 135 - 145 mmol/L [facility] Potassium, pl 3.2(L) 3.3 - 4.9 mmol/L [facility] Chloride 98 97 - 110 mmol/L [facility] CO2 22 22 - 32 mmol/L [facility] Anion gap 8 2 - 15 mmol/L [facility] BUN 10 8 - 25 mg/dL [facility] Creatinine 0.50(L) 0.80 - 1.30 mg/dL [facility] Glucose 202(H) 70 - 199 mg/dL [facility] Comment: Interpretive Data Fasting glucose >/= [...] Current interpretive data was last revised 2022. Calcium 8.3(L) 8.5 - 10.3 mg/dL [facility] Blood 02/12/2023 8:03 PM CDT 02/12/2023 8:09 PM CDT Result [facility] Robert GLASER LAB BLOOD ORDERABLES Fi nal Result Performing Organization Address [facility] Co de Phone Number [address] [place] [address] * Magnesium (02/12/2023 8:03 PM CDT) Pathologist [facility] Magnesium 1.8 1.4 - 2.5 mg/dL [facility] Blood 02/12/2023 8:03 PM CDT 02/12/2023 8:09 PM CDT Result [facility] Robert GLASER LAB BLOOD ORDERABLES Fi nal Result Performing Organization Address City/[facility] Co de Phone Number [address] [employer] [place] [address] * (ABNORMAL) POCT glucose (02/12/2023 7:56 PM CDT) Glucose, POC 211(H) 70 - 199 mg/dL [facility] Blood 02/12/2023 7:56 PM CDT 02/12/2023 7:56 PM CDT Mirella Coleman MD LAB POC T ORDERABLES - DEVICE Final Result Performing Organization Address [facility] Co de Phone Number [address] [employer] [place] [address] * POCT glucose (02/12/2023 6:34 PM CDT) Glucose, POC 168 70 - 199 mg/dL [facility] Glucose comment 1 Use This Result [facility] Blood 02/12/2023 6:34 PM CDT 02/12/2023 6:34 PM CDT Mirella Coleman MD LAB POC T ORDERABLES - DEVICE Final Result Performing Organization Address [facility] Co de Phone Number [address] [employer] [place] [address] * (ABNORMAL) POCT glucose (02/12/2023 5:48 PM CDT) Glucose, POC 255(H) 70 - 199 mg/dL [facility] Glucose comment 1 Use This Result [facility] Blood 02/12/2023 5:48 PM CDT 02/12/2023 5:48 PM CDT Mirella Coleman MD LAB POC T ORDERABLES - DEVICE Final Result Performing Organization Address [facility] Co de Phone Number [address] [employer] [place] [address] * POCT glucose (02/12/2023 4:37 PM CDT) Glucose, POC 140 70 - 199 mg/dL [facility] Glucose comment 1 Use This Result [facility] Blood 02/12/2023 4:37 PM CDT 02/12/2023 4:37 PM CDT Mirella Coleman MD LAB POC T ORDERABLES - DEVICE Final Result Performing Organization Address City/[facility] Co de Phone Number [address] [employer] [place] [address] * (ABNORMAL) POCT glucose (02/12/2023 3:25 PM CDT) Glucose, POC 229(H) 70 - 199 mg/dL [facility] Blood 02/12/2023 3:25 PM CDT 02/12/2023 3:25 PM CDT Mirella Coleman MD LAB POC T ORDERABLES - DEVICE Final Result Performing Organization Address [facility] Co de Phone Number [address] [employer] [place] [address] * POCT glucose (02/12/2023 2:36 PM CDT) Glucose, POC 153 70 - 199 mg/dL [facility] Blood 02/12/2023 2:36 PM CDT 02/12/2023 2:36 PM CDT Mirella Coleman MD LAB POC T ORDERABLES - DEVICE Final Result Performing Organization Address [facility] Co de Phone Number [address] [employer] [place] [address] * POCT glucose (02/12/2023 2:11 PM CDT) Glucose, POC 118 70 - 199 mg/dL [facility] Blood 02/12/2023 2:11 PM CDT 02/12/2023 2:11 PM CDT Mirella Coleman MD LAB POC T ORDERABLES - DEVICE Final Result [facility] [address] [address] * POCT glucose (02/12/2023 1:21 PM CDT) Glucose, POC 183 70 - 199 mg/dL [facility] Glucose comment 1 Use This Result [facility] Blood 02/12/2023 1:21 PM CDT 02/12/2023 1:21 PM CDT Mirella Coleman MD LAB POC T ORDERABLES - DEVICE Final Result Performing Organization Address [facility] de Phone Number [address] [address] * (ABNORMAL) POCT glucose (02/12/2023 12:13 PM CDT) Glucose, POC 235(H) 70 - 199 mg/dL [facility] Blood 02/12/2023 12:1 3 PM CDT 02/12/2023 12:13 PM CDT Mirella Coleman MD LAB POC T ORDERABLES - DEVICE Final Result Performing Organization Address [facility] de Phone Number [address] [address] * (ABNORMAL) POCT glucose (02/12/2023 11:03 AM CDT) Glucose, POC 259(H) 70 - 199 mg/dL [facility] Glucose comment 1 Use This Result [facility] Blood 02/12/2023 11:0 3 AM CDT 02/12/2023 11:03 AM CDT Mirella Coleman MD LAB POC T ORDERABLES - DEVICE Final Result Performing Organization Address [facility] Co de Phone Number [address] [employer] [place] [address] * (ABNORMAL) POCT glucose (02/12/2023 10:07 AM CDT) Pathologist [facility] Glucose, POC 289(H) 70 - 199 mg/dL [facility] Blood 02/12/2023 10:0 7 AM CDT 02/12/2023 10:07 AM CDT us Mirella Coleman MD LAB POC T ORDERABLES - DEVICE Final Result Performing Organization Address [facility] de Phone Number [address] [address] * (ABNORMAL) Hepatic function panel (02/12/2023 9:59 AM CDT) [facility] Bilirubin, total 0.3 0.1 - 1.2 mg/dL [facility] Bilirubin, direct <0.2 0.1 - 0.3 mg/dL [facility] Comment: slightly HEMOLYZED: Hemolysis interferes with the above test. Lipemic specimen Protein, pl 5.7(L) 6.5 - 8.5 g/dL [facility] Albumin 2.6(L) 3.5 - 5.0 g/dL [facility] Alk phos 72 40 - 130 Units/L [facility] ALT 14 7 - 55 Units/L [facility] AST 21 10 - 50 Units/L [facility] Blood 02/12/2023 9:59 AM CDT 02/12/2023 10:05 AM CDT us Robert GLASER LAB BLOOD ORDERABLES Fi nal Result Performing Organization Address [facility] Co de Phone Number [address] [address] * Potassium (02/12/2023 9:59 AM CDT) [facility] Potassium, pl 3.5 3.3 - 4.9 mmol/L [facility] Blood 02/12/2023 9:59 AM CDT 02/12/2023 10:05 AM CDT Robert GLASER LAB BLOOD ORDERABLES Fi nal Result Performing Organization Address City/[facility] Co de Phone Number [address] [employer] [place] [address] * (ABNORMAL) POCT glucose (02/12/2023 9:01 AM CDT) Glucose, POC 241(H) 70 - 199 mg/dL [facility] Blood 02/12/2023 9:01 AM CDT 02/12/2023 9:01 AM CDT Mirella Coleman MD LAB POC T ORDERABLES - DEVICE Final Result Performing Organization Address [facility] Co de Phone Number [address] [employer] [place] [address] * POCT glucose (02/12/2023 8:09 AM CDT) Glucose, POC 120 70 - 199 mg/dL [facility] Blood 02/12/2023 8:09 AM CDT 02/12/2023 8:09 AM CDT Mirella Coleman MD LAB POC T ORDERABLES - DEVICE Final Result Performing Organization Address City/[facility] Co de Phone Number [address] [employer] [place] [address] * POCT glucose (02/12/2023 7:22 AM CDT) Glucose, POC 151 70 - 199 mg/dL [facility] Blood 02/12/2023 7:22 AM CDT 02/12/2023 7:22 AM CDT us Mirella Coleman MD LAB POC T ORDERABLES - DEVICE Final Result [facility] [address] [place] [address] * Critical Care (02/12/2023 6:47 AM CDT) Narrative Dylan Roa MD - 02/12/2023 6:47 AM CDT Robert Carcamo PA ? 02/12/2023 ??6:46 PM Critical Care Performed by: Robert Carcamo PA Authorized by: Robert Carcamo PA ?? CRITICAL CARE: ??Team: ??MHB ??Shift: ??AM ??Level of Billing: ??Critical Care ??My time spent with this patient was 65 minutes: Critical Provider Statement: I have seen and examined the patient on this day of service. I have reviewed and confirmed the history, physical exam, laboratory and radiologic data as documented in the signed ICU note. I have reviewed and discussed my treatment plan with the ICU team and other medical/professional benefits sales consultant staff, making frequent assessments and decisions regarding this patient's complex medical care. Critical Care time was exclusive of time spent performing separately billed procedures, treating other patients, and teaching. This time was in addition to and separate from critical care provided by other practitioners in my group on this day of service. Critical Care was necessary to treat or prevent imminent or life-threatening deterioration of the following conditions: ? DKA/Hyperglycemia ?? Acid-base disturbance ??This time was spent by me doing the following: ? Glycemic control ?? I spent time reviewing and interpreting data from bedside monitors, laboratory results, and imaging, I spent time discussing the management of this critically ill patient with consultants and the medical staff and I spent time documenting in the medical record us Robert GLASER IN CLINIC/BEDSIDE ORDER ANISH Final Result * POCT glucose (02/12/2023 6:03 AM CDT) Glucose, POC 176 70 - 199 mg/dL [facility] Glucose comment 1 Use This Result [facility] Blood 02/12/2023 6:03 AM CDT 02/12/2023 6:03 AM CDT Mirella Coleman MD LAB POC T ORDERABLES - DEVICE Final Result Performing Organization Address [facility] de Phone Number [place] [phone] [facility] [employer] [place] [address] * (ABNORMAL) POCT glucose (02/12/2023 5:01 AM CDT) Pathologist [facility] Glucose, POC 243(H) 70 - 199 mg/dL [facility] Glucose comment 1 Use This Result [facility] Blood 02/12/2023 5:01 AM CDT 02/12/2023 5:01 AM CDT Mirella Coleman MD LAB POC T ORDERABLES - DEVICE Final Result Performing Organization Address [facility] de Phone Number [address] [address] * eGFR (02/12/2023 4:51 AM CDT) Pathologist [facility] eGFR 122 mL/min/1. 73 m2 [facility] Comment: Interpretive Data Reference Interval Normal ?>/= [...] Current interpretive data was last reviewed 2021. Blood 02/12/2023 4:51 AM CDT 02/12/2023 4:58 AM CDT Mirella Coleman MD LAB BLO OD ORDERABLES Final Result Performing Organization Address [facility] de Phone Number [address] [place] [address] * (ABNORMAL) Phosphorus (02/12/2023 4:51 AM CDT) Phosphorus, pl 1.5(L) 2.3 - 4.5 mg/dL [facility] Blood 02/12/2023 4:51 AM CDT 02/12/2023 4:58 AM CDT Mirella Coleman MD LAB BLO OD ORDERABLES Final Result Performing Organization Address [facility] de Phone Number [address] of [employer] [place] [address] * Magnesium (02/12/2023 4:51 AM CDT) Magnesium 2.0 1.4 - 2.5 mg/dL [facility] Blood 02/12/2023 4:51 AM CDT 02/12/2023 4:58 AM CDT Mirella Coleman MD LAB BLO OD ORDERABLES Final Result [facility] [address] [place] [address] * (ABNORMAL) Comprehensive metabolic panel (02/12/2023 4:51 AM CDT) Sodium 131(L) 135 - 145 mmol/L [facility] Potassium, pl See Comment 3.3 - 4.9 [facility] Comment:Unable to perform te sting due to gross hemolysis. Specimen is also grossly lipemic. Chloride 105 97 - 110 mmol/L [facility] CO2 18(L) 22 - 32 mmol/L [facility] Anion gap 8 2 - 15 mmol/L [facility] BUN 8 8 - 25 mg/dL [facility] Creatinine 0.60(L) 0.80 - 1.30 mg/dL [facility] Glucose 253(H) 70 - 199 mg/dL [facility] Comment: Delta - Results Reviewed Interpretive [...] Current interpretive data was last revised 2022. Calcium 8.4(L) 8.5 - 10.3 mg/dL [facility] Bilirubin, total 0.3 0.1 - 1.2 mg/dL [facility] Protein, pl 6.1(L) 6.5 - 8.5 g/dL [facility] Albumin 2.7(L) 3.5 - 5.0 g/dL [facility] Alk phos 78 40 - 130 Units/L [facility] ALT See Comment 7 - 55 [facility] Comment:Unable to perform te sting due to gross hemolysis. Specimen is also grossly lipemic. AST See Comment 10 - 50 [facility] Comment:Unable to perform te sting due to gross hemolysis. Specimen is also grossly lipemic. Blood 02/12/2023 4:51 AM CDT 02/12/2023 4:58 AM CDT Mirella Coleman MD LAB BLO OD ORDERABLES Final Result Performing Organization Address City/[facility] Co de Phone Number [facility] [address] [address] * (ABNORMAL) POCT glucose (02/12/2023 4:00 AM CDT) [facility] Glucose, POC 264(H) 70 - 199 mg/dL [facility] Glucose comment 1 Use This Result [facility] Blood 02/12/2023 4:00 AM CDT 02/12/2023 4:00 AM CDT Mirella Coleman MD LAB POC T ORDERABLES - DEVICE Final Result Performing Organization Address [facility] de Phone Number [facility] [address] [place] [address] * (ABNORMAL) Differential, auto (02/12/2023 3:37 AM CDT) [facility] Neutrophil abs 8.6(H) 1.7 - 6.5 K/cumm [facility] Imm gran abs 0.2(H) 0.0 - 0.1 K/cumm [facility] Lymphocyte abs 1.5 0.8 - 3.3 K/cumm [facility] Monocyte abs 1.2(H) 0.2 - 0.8 K/cumm [facility] Eosinophil abs 0.1 0.0 - 0.5 K/cumm [facility] Basophil abs 0.0 0.0 - 0.1 K/cumm [facility] Neutrophil pct 74.3 % [facility] Comment: Interpretive Data Percent cell count reference ranges are not reported, since discordance with absolute values may lead to misinterpretation of CBC data. Current Interpretive Data was last revised on 2018. Imm gran pct 1.6 % [facility] Comment: Interpretive Data Percent cell count reference ranges are not reported, since discordance with absolute values may lead to misinterpretation of CBC data. Current Interpretive Data was last revised on 2018. Lymphocyte pct 12.7 % [facility] Comment: Interpretive Data Percent cell count reference ranges are not reported, since discordance with absolute values may lead to misinterpretation of CBC data. Current Interpretive Data was last revised on 2018. Monocyte pct 10.1 % [facility] Comment: Interpretive Data Percent cell count reference ranges are not reported, since discordance with absolute values may lead to misinterpretation of CBC data. Current Interpretive Data was last revised on 2018. Eosinophil pct 1.0 % [facility] Comment: Interpretive Data Percent cell count reference ranges are not reported, since discordance with absolute values may lead to misinterpretation of CBC data. Current Interpretive Data was last revised on 2018. Basophil pct 0.3 % [facility] Comment: Interpretive Data Percent cell count reference ranges are not reported, since discordance with absolute values may lead to misinterpretation of CBC data. Current Interpretive Data was last revised on 2018. Blood 02/12/2023 3:37 AM CDT 02/12/2023 3:52 AM CDT Juvenal Anderson MD LAB BLOOD ORDERABLES Final Result [facility] [address] [place] [address] * (ABNORMAL) CBC with auto differential (02/12/2023 3:37 AM CDT) WBC 11.5(H) 3.8 - 9.9 K/cumm [facility] Hgb 12.8(L) 13.0 - 17.5 g/dL [facility] Hct 33.6(L) 38.9 - 50.3 % [facility] Plt 198 150 - 400 K/cumm [facility] MPV 9.6 9.1 - 12.3 fL [facility] RBC 3.99(L) 4.30 - 5.80 M/cumm [facility] MCV 84.2 81.3 - 96.4 fL [facility] MCH 32.1 27.1 - 33.3 pg [facility] MCHC 38.1(H) 32.3 - 35.7 g/dL [facility] RDW CV 13.3 11.1 - 14.9 % [facility] RDW SD 41.4 35.7 - 48.1 fL [facility] NRBC abs 0.00 0.00 - 0.01 K/cumm [facility] Blood 02/12/2023 3:37 AM CDT 02/12/2023 3:52 AM CDT Juvenal Anderson MD LAB BLOOD ORDERABLES Final Result Performing Organization Address [facility] Co de Phone Number [address] [employer] [place] [address] * (ABNORMAL) POCT glucose (02/12/2023 3:03 AM CDT) Glucose, POC 296(H) 70 - 199 mg/dL [facility] Glucose comment 1 Use This Result [facility] Blood 02/12/2023 3:03 AM CDT 02/12/2023 3:03 AM CDT Mirella Coleman MD LAB POC T ORDERABLES - DEVICE Final Result Performing Organization Address [facility] Co de Phone Number [address] [employer] [place] [address] * (ABNORMAL) POCT glucose (02/12/2023 1:56 AM CDT) Glucose, POC 360(H) 70 - 199 mg/dL [facility] Glucose comment 1 Use This Result [facility] Blood 02/12/2023 1:56 AM CDT 02/12/2023 1:56 AM CDT Mirella Coleman MD LAB POC T ORDERABLES - DEVICE Final Result Performing Organization Address [facility] Co de Phone Number [address] [employer] [place] [address] * (ABNORMAL) POCT glucose (02/12/2023 12:26 AM CDT) Glucose, POC 275(H) 70 - 199 mg/dL [facility] Blood 02/12/2023 12:2 6 AM CDT 02/12/2023 12:26 AM CDT Mirella Coleman MD LAB POC T ORDERABLES - DEVICE Final Result Performing Organization Address City/[facility]/ZIP Co de Phone Number [address] [address] * (ABNORMAL) POCT glucose (02/11/2023 11:10 PM CDT) Glucose, POC 211(H) 70 - 199 mg/dL [facility] Glucose comment 1 Use This Result [facility] Blood 02/11/2023 11:1 0 PM CDT 02/11/2023 11:10 PM CDT Mirella Coleman MD LAB POC T ORDERABLES - DEVICE Final Result Performing Organization Address [facility] Co de Phone Number [address] [employer] [place] [address] * POCT glucose (02/11/2023 10:17 PM CDT) Glucose, POC 172 70 - 199 mg/dL [facility] Glucose comment 1 Use This Result [facility] Blood 02/11/2023 10:1 7 PM CDT 02/11/2023 10:17 PM CDT Mirella Coleman MD LAB POC T ORDERABLES - DEVICE Final Result Performing Organization Address City/[facility]/ZIP Co de Phone Number [facility] [address] [place] [address] * POCT glucose (02/11/2023 9:11 PM CDT) Glucose, POC 176 70 - 199 mg/dL [facility] Glucose comment 1 Use This Result [facility] Blood 02/11/2023 9:11 PM CDT 02/11/2023 9:11 PM CDT Mohsen Orona DO LAB POCT ORDERABLES - DEVICE F inal Result Performing Organization Address [facility] de Phone Number [address] [address] * POCT glucose (02/11/2023 8:15 PM CDT) Glucose, POC 158 70 - 199 mg/dL [facility] Glucose comment 1 Use This Result [facility] Blood 02/11/2023 8:15 PM CDT 02/11/2023 8:15 PM CDT Mohsen Yeyo DO LAB POCT ORDERABLES - DEVICE F inal Result Performing Organization Address [facility] de Phone Number [address] [address] * Critical Care (02/11/2023 8:07 PM CDT) Narrative Mirella Coleman MD - 02/11/2023 8:07 PM CDT Mirella Coleman MD ? 02/12/2023 ??5:34 AM Critical Care Performed by: Mirella Coleman MD Authorized by: Mirella Coleman MD ?? CRITICAL CARE: ??Team: ??[facility] ??Shift: ??PM ??Level of Billing: ??Critical Care ??My time spent with this patient was 40 minutes: Critical Provider Statement: I have seen and examined the patient on this day of service. I have reviewed and confirmed the history, physical exam, laboratory and radiologic data as documented in the signed ICU note. I have reviewed and discussed my treatment plan with the ICU team and other medical/professional benefits sales consultant staff, making frequent assessments and decisions regarding this patient's complex medical care. Critical Care time was exclusive of time spent performing separately billed procedures, treating other patients, and teaching. This time was in addition to and separate from critical care provided by other practitioners in my group on this day of service. Critical Care was necessary to treat or prevent imminent or life-threatening deterioration of the following conditions: ? Acute electrolyte derangement, Diabetic Ketoacidosis and Hypo- or Hyperglycemia ??This time was spent by me doing the following: ? Active and frequent monitoring of intake/output and volumen status and Glycemic control ?? Active repletion of electrolytes ?? I spent time reviewing and interpreting data from bedside monitors, laboratory results, and imaging, I spent time discussing the management of this critically ill patient with consultants and the medical staff and I spent time documenting in the medical record us Mirella Coleman MD IN CLIN IC/BEDSIDE ORDERABLES Final Result * eGFR (02/11/2023 7:22 PM CDT) [facility] eGFR 129 mL/min/1. 73 m2 [facility] Comment: Interpretive [...] Current interpretive data was last reviewed 2021. Blood 02/11/2023 7:22 PM CDT 02/11/2023 7:50 PM CDT us Mirella Coleman MD LAB BLO OD ORDERABLES Final Result [facility] [address] Department [place] [address] * (ABNORMAL) Triglycerides (02/11/2023 7:22 PM CDT) Triglycerides 2,623(H) <=149 mg/dL [facility] Comment: Interpretive Data [...] Interpretive Data was last revised on 2018. Blood 02/11/2023 7:22 PM CDT 02/11/2023 7:50 PM CDT Mirella Coleman MD LAB BLO OD ORDERABLES Final Result Performing Organization Address City/[facility] Co de Phone Number [address] [employer] [place] [address] * (ABNORMAL) Phosphorus (02/11/2023 7:22 PM CDT) Pathologist [facility] Phosphorus, pl 1.2(C) 2.3 - 4.5 mg/dL [facility] Comment:Critical Result call ed to and read back by [email or web address], DATE: 2023-02-11 20:19:17 BY: [id number] Blood 02/11/2023 7:22 PM CDT 02/11/2023 7:50 PM CDT Mirella Coleman MD LAB BLO OD ORDERABLES Final Result Performing Organization Address [facility] Co de Phone Number [address] [employer] [place] [address] * Magnesium (02/11/2023 7:22 PM CDT) [facility] Magnesium 2.1 1.4 - 2.5 mg/dL [facility] Blood 02/11/2023 7:22 PM CDT 02/11/2023 7:50 PM CDT Mirella Coleman MD LAB BLO OD ORDERABLES Final Result Performing Organization Address City/[facility] Co de Phone Number [address] [employer] [place] [address] * (ABNORMAL) Comprehensive metabolic panel (02/11/2023 7:22 PM CDT) Sodium 126(L) 135 - 145 mmol/L [facility] Potassium, pl 3.3 3.3 - 4.9 mmol/L [facility] Comment:SLIGHTLY HEMOLYZED: Hemolysis interferes with the above test. Chloride 101 97 - 110 mmol/L [facility] CO2 14(L) 22 - 32 mmol/L [facility] Anion gap 11 2 - 15 mmol/L [facility] BUN 5(L) 8 - 25 mg/dL [facility] Creatinine 0.50(L) 0.80 - 1.30 mg/dL [facility] Glucose 109 70 - 199 mg/dL [facility] Comment: Interpretive Data Fasting glucose >/= [...] Current interpretive data was last revised 2022. Calcium 8.4(L) 8.5 - 10.3 mg/dL [facility] Bilirubin, total 0.2 0.1 - 1.2 mg/dL [facility] Protein, pl 6.4(L) 6.5 - 8.5 g/dL [facility] Albumin 2.3(L) 3.5 - 5.0 g/dL [facility] Alk phos 79 40 - 130 Units/L [facility] ALT 5(L) 7 - 55 Units/L [facility] Comment: SLIGHTLY HEMOLYZED: Hemolysis interferes with the above test. Lipemic specimen AST 5(L) 10 - 50 Units/L [facility] Comment: SLIGHTLY HEMOLYZED: Hemolysis interferes with the above test. Lipemic specimen Blood 02/11/2023 7:22 PM CDT 02/11/2023 7:50 PM CDT Mirella Coleman MD LAB BLO OD ORDERABLES Final Result [address] [address] * POCT glucose (02/11/2023 7:19 PM CDT) Glucose, POC 119 70 - 199 mg/dL [facility] Glucose comment 1 Use This Result [facility] Blood 02/11/2023 7:19 PM CDT 02/11/2023 7:19 PM CDT FIRE1 LAB POCT ORDERABLES - DEVICE F inal Result Performing Organization Address City/[facility] Co de Phone Number [address] [address] * POCT glucose (02/11/2023 6:18 PM CDT) Glucose, POC 83 70 - 199 mg/dL [facility] Glucose comment 1 Use This Result [facility] Blood 02/11/2023 6:18 PM CDT 02/11/2023 6:18 PM CDT FIRE1 [facility] POCT ORDERABLES - DEVICE F inal Result Performing Organization Address City/[facility] Co de Phone Number [address] [address] * POCT glucose (02/11/2023 5:03 PM CDT) Glucose, POC 101 70 - 199 mg/dL [facility] Glucose comment 1 Use This Result [facility] Blood 02/11/2023 5:03 PM CDT 02/11/2023 5:03 PM CDT FIRE1 [facility] POCT ORDERABLES - DEVICE F inal Result Performing Organization Address City/[facility]/ZIP Co de Phone Number [address] [address] * POCT glucose (02/11/2023 4:02 PM CDT) Glucose, POC 104 70 - 199 mg/dL [facility] Glucose comment 1 Use This Result [facility] Blood 02/11/2023 4:02 PM CDT 02/11/2023 4:02 PM CDT FIRE1 LAB POCT ORDERABLES - DEVICE F inal Result Performing Organization Address City/[facility] Co de Phone Number [facility] [address] [employer] [place] [address] * POCT glucose (02/11/2023 3:18 PM CDT) Glucose, POC 121 70 - 199 mg/dL [facility] Glucose comment 1 Use This Result [facility] Blood 02/11/2023 3:18 PM CDT 02/11/2023 3:18 PM CDT FIRE1 LAB POCT ORDERABLES - DEVICE F inal Result Performing Organization Address [facility] Co de Phone Number SYDNEY[address] [employer] [place] [address] * POCT glucose (02/11/2023 2:23 PM CDT) Glucose, POC 116 70 - 199 mg/dL [facility] Glucose comment 1 Use This Result [facility] Blood 02/11/2023 2:23 PM CDT 02/11/2023 2:23 PM CDT FIRE1 [facility] POCT ORDERABLES - DEVICE F inal Result Performing Organization Address City/[facility] de Phone Number SYDNEY[address] [employer] [place] [address] * POCT glucose (02/11/2023 1:26 PM CDT) Glucose, POC 121 70 - 199 mg/dL [facility] Glucose comment 1 Use This Result [facility] Blood 02/11/2023 1:26 PM CDT 02/11/2023 1:26 PM CDT Mohsen Plumzi LAB POCT ORDERABLES - DEVICE F inal Result Performing Organization Address [facility] Co de Phone Number [facility] [address] [employer] [place] [address] * POCT glucose (02/11/2023 12:10 PM CDT) Glucose, POC 113 70 - 199 mg/dL [facility] Glucose comment 1 Use This Result [facility] Blood 02/11/2023 12:1 0 PM CDT 02/11/2023 12:10 PM CDT Mohsen Plumzi LAB POCT ORDERABLES - DEVICE F inal Result Performing Organization Address [facility] de Phone Number [facility] [address] [employer] [place] [address] * POCT glucose (02/11/2023 11:02 AM CDT) Glucose, POC 108 70 - 199 mg/dL [facility] Glucose comment 1 Use This Result [facility] Blood 02/11/2023 11:0 2 AM CDT 02/11/2023 11:02 AM CDT Mohsen Plumzi LAB POCT ORDERABLES - DEVICE F inal Result Performing Organization Address [facility] de Phone Number [facility] [address] [address] * POCT glucose (02/11/2023 10:12 AM CDT) Glucose, POC 118 70 - 199 mg/dL [facility] Glucose comment 1 Use This Result [facility] Blood 02/11/2023 10:1 2 AM CDT 02/11/2023 10:12 AM CDT Mohsen Orona DO LAB POCT ORDERABLES - DEVICE F inal Result [facility] [address] [place] [address] * Critical Care (02/11/2023 9:37 AM CDT) Narrative Dylan Roa MD - 02/11/2023 9:37 AM CDT Robert Carcamo PA ? 02/11/2023 ??6:21 PM Critical Care Performed by: Robert Carcamo PA Authorized by: Robert Carcamo PA ?? CRITICAL CARE: ??Team: ??[facility] ??Shift: ??AM ??Level of Billing: ??Critical Care ??My time spent with this patient was 70 minutes: Critical Provider Statement: I have seen and examined the patient on this day of service. I have reviewed and confirmed the history, physical exam, laboratory and radiologic data as documented in the signed ICU note. I have reviewed and discussed my treatment plan with the ICU team and other medical/professional benefits sales consultant staff, making frequent assessments and decisions regarding this patient's complex medical care. Critical Care time was exclusive of time spent performing separately billed procedures, treating other patients, and teaching. This time was in addition to and separate from critical care provided by other practitioners in my group on this day of service. Critical Care was necessary to treat or prevent imminent or life-threatening deterioration of the following conditions: ? Acute pancreatitis ?? Acid-base disturbance and Diabetic Ketoacidosis ??This time was spent by me doing the following: ? Insulin drip ?? Glycemic control Robert GLASER IN CLINIC/BEDSIDE ORDER ANISH Final Result * POCT glucose (02/11/2023 9:00 AM CDT) [facility] Signature Glucose, POC 143 70 - 199 mg/dL [facility] Glucose comment 1 Use This Result [facility] Blood 02/11/2023 9:00 AM CDT 02/11/2023 9:00 AM CDT Mohsen Orona DO LAB POCT ORDERABLES - DEVICE F inal Result Performing Organization Address [facility] Co de Phone Number [address] [address] * POCT glucose (02/11/2023 7:07 AM CDT) Glucose, POC 145 70 - 199 mg/dL [facility] Glucose comment 1 Use This Result [facility] Blood 02/11/2023 7:07 AM CDT 02/11/2023 7:07 AM CDT Mohsen Yeyo DO LAB POCT ORDERABLES - DEVICE F inal Result Performing Organization Address [facility] de Phone Number [address] [address] * POCT glucose (02/11/2023 6:05 AM CDT) Glucose, POC 150 70 - 199 mg/dL [facility] Glucose comment 1 Use This Result [facility] Blood 02/11/2023 6:05 AM CDT 02/11/2023 6:05 AM CDT Mohsen Christiansongema DO LAB POCT ORDERABLES - DEVICE F inal Result Performing Organization Address [facility] de Phone Number [address] [address] * eGFR (02/11/2023 5:47 AM CDT) eGFR 117 mL/min/1. 73 m2 [facility] Comment: Interpretive Data Reference Interval Normal ?>/= [...] Current interpretive data was last reviewed 2021. Blood 02/11/2023 5:47 AM CDT 02/11/2023 7:06 AM CDT Laura Prieto NP LAB BLOOD ORDERABLES Final Resul t [place] [id number] [place] [address] * (ABNORMAL) Differential, auto (02/11/2023 5:47 AM CDT) Neutrophil abs 20.4(H) 1.7 - 6.5 K/cumm [facility] Imm gran abs 0.8(H) 0.0 - 0.1 K/cumm [facility] Lymphocyte abs 2.1 0.8 - 3.3 K/cumm [facility] Monocyte abs 2.8(H) 0.2 - 0.8 K/cumm [facility] Eosinophil abs 0.1 0.0 - 0.5 K/cumm [facility] Basophil abs 0.1 0.0 - 0.1 K/cumm [facility] Neutrophil pct 77.8 % [facility] Comment: Interpretive Data Percent cell count reference ranges are not reported, since discordance with absolute values may lead to misinterpretation of CBC data. Current Interpretive Data was last revised on 2018. Imm gran pct 2.9 % [facility] Comment: Interpretive Data Percent cell count reference ranges are not reported, since discordance with absolute values may lead to misinterpretation of CBC data. Current Interpretive Data was last revised on 2018. Lymphocyte pct 8.1 % [facility] Comment: Interpretive Data Percent cell count reference ranges are not reported, since discordance with absolute values may lead to misinterpretation of CBC data. Current Interpretive Data was last revised on 2018. Monocyte pct 10.7 % [facility] Comment: Interpretive Data Percent cell count reference ranges are not reported, since discordance with absolute values may lead to misinterpretation of CBC data. Current Interpretive Data was last revised on 2018. Eosinophil pct 0.2 % [facility] Comment: Interpretive Data Percent cell count reference ranges are not reported, since discordance with absolute values may lead to misinterpretation of CBC data. Current Interpretive Data was last revised on 2018. Basophil pct 0.3 % [facility] Comment: Interpretive Data Percent cell count reference ranges are not reported, since discordance with absolute values may lead to misinterpretation of CBC data. Current Interpretive Data was last revised on 2018. Blood 02/11/2023 5:47 AM CDT 02/11/2023 6:09 AM CDT Juvenal Anderson MD LAB BLOOD ORDERABLES Final Result [facility] [address] Department of Laboratories [place], [place] [id number] * (ABNORMAL) CBC with auto differential (02/11/2023 5:47 AM CDT) WBC 26.2(H) 3.8 - 9.9 K/cumm [facility] Hgb 14.7 13.0 - 17.5 g/dL [facility] Hct 35.7(L) 38.9 - 50.3 % [facility] Plt 354 150 - 400 K/cumm [facility] MPV 10.1 9.1 - 12.3 fL [facility] RBC 4.23(L) 4.30 - 5.80 M/cumm [facility] MCV 84.4 81.3 - 96.4 fL [facility] MCH 34.8(H) 27.1 - 33.3 pg [facility] MCHC 41.2(H) 32.3 - 35.7 g/dL [facility] RDW CV 13.9 11.1 - 14.9 % [facility] RDW SD 42.3 35.7 - 48.1 fL [facility] NRBC abs 0.00 0.00 - 0.01 K/cumm [facility] Blood 02/11/2023 5:47 AM CDT 02/11/2023 6:09 AM CDT Juvenal Anderson MD LAB BLOOD ORDERABLES Final Result Performing Organization Address City/[facility] Co de Phone Number [address] [employer] [place] [address] * (ABNORMAL) Phosphorus (02/11/2023 5:47 AM CDT) Phosphorus, pl 2.1(L) 2.3 - 4.5 mg/dL [facility] Blood 02/11/2023 5:47 AM CDT 02/11/2023 7:06 AM CDT Laura Prieto NP LAB BLOOD ORDERABLES Final Resul t Performing Organization Address [facility] de Phone Number [address] [place] [address] * Magnesium (02/11/2023 5:47 AM CDT) Magnesium 1.7 1.4 - 2.5 mg/dL [facility] Blood 02/11/2023 5:47 AM CDT 02/11/2023 7:06 AM CDT Laura Prieto NP LAB BLOOD ORDERABLES Final Resul t Performing Organization Address [facility] Co de Phone Number [address] [employer] [place] [address] * (ABNORMAL) Basic metabolic panel (02/11/2023 5:47 AM CDT) Pathologist [facility] Sodium 129(L) 135 - 145 mmol/L [facility] Potassium, pl 3.9 3.3 - 4.9 mmol/L [facility] Comment:Gross Lipemia /Sligh tly HEMOLYZED: Hemolysis interferes with the above test. Chloride 105 97 - 110 mmol/L [facility] CO2 12(L) 22 - 32 mmol/L [facility] Anion gap 12 2 - 15 mmol/L [facility] BUN 9 8 - 25 mg/dL [facility] Creatinine 0.70(L) 0.80 - 1.30 mg/dL [facility] Glucose 158 70 - 199 mg/dL [facility] Comment: Interpretive Data Fasting glucose >/= [...] Current interpretive data was last revised 2022. Calcium 8.3(L) 8.5 - 10.3 mg/dL [facility] Blood 02/11/2023 5:47 AM CDT 02/11/2023 7:06 AM CDT Laura Prieto TACKING MACHINE OPERATOR LAB BLOOD ORDERABLES Final Resul t [facility] [address] [place] [address] * POCT glucose (02/11/2023 5:08 AM CDT) Glucose, POC 165 70 - 199 mg/dL [facility] Blood 02/11/2023 5:08 AM CDT 02/11/2023 5:08 AM CDT Mohsen Orona DO LAB POCT ORDERABLES - DEVICE F inal Result Performing Organization Address [facility] Co de Phone Number [facility] [address] [place] [address] * POCT glucose (02/11/2023 4:06 AM CDT) Glucose, POC 165 70 - 199 mg/dL [facility] Glucose comment 1 Use This Result [facility] Blood 02/11/2023 4:06 AM CDT 02/11/2023 4:06 AM CDT Mohsen Orona DO LAB POCT ORDERABLES - DEVICE F inal Result Performing Organization Address [facility] de Phone Number [facility] [address] [place] [address] * Critical Care (02/11/2023 4:01 AM CDT) Narrative Juvenal Anderson MD - 02/11/2023 4:01 AM CDT Juvenal Anderson MD ? 02/11/2023 ??4:02 AM Critical Care Performed by: Juvenal Anderson MD Authorized by: Juvenal Anderson MD ?? CRITICAL CARE: ??Team: ??[facility] ??Shift: ??PM ??Level of Billing: ??Critical Care ??My time spent with this patient was 40 minutes: Critical Provider Statement: I have seen and examined the patient on this day of service. I have reviewed and confirmed the history, physical exam, laboratory and radiologic data as documented in the signed ICU note. I have reviewed and discussed my treatment plan with the ICU team and other medical/professional benefits sales consultant staff, making frequent assessments and decisions regarding this patient's complex medical care. Critical Care time was exclusive of time spent performing separately billed procedures, treating other patients, and teaching. This time was in addition to and separate from critical care provided by other practitioners in my group on this day of service. Critical Care was necessary to treat or prevent imminent or life-threatening deterioration of the following conditions: ? Acute pancreatitis ?? Acid-base disturbance and Diabetic Ketoacidosis ??This time was spent by me doing the following: ? Serial laboratory checks and Resuscitation with fluids ?? Glycemic control ?? I spent time reviewing and interpreting data from bedside monitors, laboratory results, and imaging, I spent time discussing the management of this critically ill patient with consultants and the medical staff and I spent time documenting in the medical record Juvenal Anderson MD IN CLINIC/BEDSIDE ORDERABL ES Final Result * POCT glucose (02/11/2023 3:36 AM CDT) Glucose, POC 176 70 - 199 mg/dL ELLIOT Blood 02/11/2023 3:36 AM CDT 02/11/2023 3:36 AM CDT Mohsen Orona DO LAB POCT ORDERABLES - DEVICE F inal Result Performing Organization Address [facility] de Phone Number [address] [place] [address] * POCT glucose (02/11/2023 2:41 AM CDT) Glucose, POC 191 70 - 199 mg/dL ELLIOT Comment:Testing performed by : [address] [address] Glucose comment 1 Use This Result ELLIOT HINES Comment:Testing performed by : [address] [address] Blood 02/11/2023 2:41 AM CDT 02/11/2023 2:41 AM CDT Mohsen Orona DO LAB POCT ORDERABLES - DEVICE F inal Result Performing Organization Address [facility] Co de Phone Number [address] [employer] [place] [address] * POCT glucose (02/11/2023 1:58 AM CDT) Glucose, POC 176 70 - 199 mg/dL ELLIOT Comment:Testing performed by : [address] [address] Glucose comment 1 Use This Result ELLIOT Comment:Testing performed by : [address] [address] Glucose comment 2 RN/MD Notified ELLIOT Comment:Testing performed by : [address] [address] Blood 02/11/2023 1:58 AM CDT 02/11/2023 1:58 AM CDT Ambric DO LAB POCT ORDERABLES - DEVICE F inal Result Performing Organization Address [facility] Co de Phone Number [address] [employer] [place] [address] * (ABNORMAL) POCT glucose (02/11/2023 12:55 AM CDT) Glucose, POC 201(H) 70 - 199 mg/dL ELLIOT Comment:Testing performed by : [address] [address] Blood 02/11/2023 12:5 5 AM CDT 02/11/2023 12:55 AM CDT Ambric DO LAB POCT ORDERABLES - DEVICE F inal Result Performing Organization Address City/[facility] Co de Phone Number [address] [employer] [place] [address] * POCT glucose (02/10/2023 11:53 PM CDT) Glucose, POC 178 70 - 199 mg/dL ELLIOT Comment:Testing performed by : [address] [address] Glucose comment 1 Use This Result ELLIOT Comment:Testing performed by : [address] [address] Glucose comment 2 RN/MD Notified ELLIOT Comment:Testing performed by : [address] [address] Blood 02/10/2023 11:5 3 PM CDT 02/10/2023 11:53 PM CDT us Juvenal Anderson MD LAB POCT ORDERABLES - JO-ANN CE Final Result ELLIOT [address] [facility] [place] [address] * eGFR (02/10/2023 11:50 PM CDT) eGFR 117 mL/min/1. 73 m2 ELLIOT [...] was last reviewed 2021. Testing performed by: [facility], [address] [place] [address], [place]., [address] Blood 02/10/2023 11:5 0 PM CDT 02/11/2023 us Laura Prieto LAB BLOOD ORDERABLES Final Resul t Performing Organization Address [facility] Co de Phone Number SY[address] [address] * (ABNORMAL) Phosphorus (02/10/2023 11:50 PM CDT) Phosphorus, pl 1.8(L) 2.3 - 4.5 mg/dL ELLIOT Comment:Testing performed by : [address] [address] Blood 02/10/2023 11:5 0 PM CDT 02/11/2023 Laura Prieto LAB BLOOD ORDERABLES Final Resul t Performing Organization Address [facility] Co de Phone Number SYDNEY[address] [employer] [place] [address] * Magnesium (02/10/2023 11:50 PM CDT) Pathologist [facility] Magnesium 1.8 1.4 - 2.5 mg/dL ELLIOT Comment:Testing performed by : [address] [address] Blood 02/10/2023 11:5 0 PM CDT 02/11/2023 Laura Prieto LAB BLOOD ORDERABLES Final Resul t Performing Organization Address City/[facility] Co de Phone Number SYDNEY[address] [employer] [place] [address] * (ABNORMAL) Basic metabolic panel (02/10/2023 11:50 PM CDT) Pathologist [facility] Sodium 123(L) 135 - 145 mmol/L ELLIOT Comment:Testing performed by : [address] [address] Potassium, pl 4.0 3.3 - 4.9 mmol/L ELLIOT Comment: HEMOLYZED: Hemolysis interferes with the above test. Testing performed by: [address] [address] Chloride 98 97 - 110 mmol/L ELLIOT Comment:Testing performed by : [address] [address] CO2 7(L) 22 - 32 mmol/L ELLIOT Comment:Testing performed by : [address] [address] Anion gap 18(H) 2 - 15 mmol/L ELLIOT Comment:Testing performed by : [address] [address] BUN 11 8 - 25 mg/dL ELLIOT Comment:Testing performed by : [address] [address] Creatinine 0.70(L) 0.80 - 1.30 mg/dL ELLIOT Comment:Testing performed by : [address] [address] Glucose 190 70 - 199 mg/dL ELLIOT Comment: Interpretive [...] was last revised 2022. Testing performed by: [address] [address] Calcium 8.3(L) 8.5 - 10.3 mg/dL ELLIOT Comment:Testing performed by : [address] [address] Blood 02/10/2023 11:5 0 PM CDT 02/11/2023 us Laura Prieto NP LAB BLOOD ORDERABLES Final Resul t ELLIOT [address] [facility] Department [place] [address] * POCT glucose (02/10/2023 10:56 PM CDT) [facility] Glucose, POC 194 70 - 199 mg/dL ELLIOT HINES Comment:Testing performed by : [address] [address] Glucose comment 1 Use This Result ELLIOT HINES Comment:Testing performed by : [address] [address] Glucose comment 2 RN/MD Notified ELLIOT Comment:Testing performed by : [address] [address] Blood 02/10/2023 10:5 6 PM CDT 02/10/2023 10:56 PM CDT Juvenal Anderson MD LAB POCT ORDERABLES - JO-ANN CE Final Result Performing Organization Address [facility] Co de Phone Number SYDNEY[address] [employer] [place] [address] * (ABNORMAL) POCT glucose (02/10/2023 8:50 PM CDT) [facility] Glucose, POC 236(H) 70 - 199 mg/dL ELLIOT HINES Comment:Testing performed by : [address] [address] Glucose comment 1 Use This Result ELLIOT Comment:Testing performed by : [address] [address] Blood 02/10/2023 8:50 PM CDT 02/10/2023 8:50 PM CDT Juvenal Anderson MD LAB POCT ORDERABLES - JO-ANN CE Final Result Performing Organization Address City/[facility]/ZIP Co de Phone Number [address] [employer] [place] [address] * eGFR (02/10/2023 8:34 PM CDT) [facility] eGFR 117 mL/min/1. 73 m2 ELLIOT HINES [...] was last reviewed 2021. Testing performed by: [facility], [address] [place] [address]., [address] Blood 02/10/2023 8:34 PM CDT 02/10/2023 8:45 PM CDT us Laura Prieto TACKING MACHINE OPERATOR LAB BLOOD ORDERABLES Final Resul t ELLIOT [address] [facility] Department [place] [address] * (ABNORMAL) Phosphorus (02/10/2023 8:34 PM CDT) Pathologist [facility] Phosphorus, pl 2.2(L) 2.3 - 4.5 mg/dL ELLIOT Comment:Testing performed by : [address] [address] Blood 02/10/2023 8:34 PM CDT 02/10/2023 8:45 PM CDT [facility] LAB BLOOD ORDERABLES Final Resul t Performing Organization Address [facility] de Phone Number [address] [address] * Magnesium (02/10/2023 8:34 PM CDT) Pathologist [facility] Magnesium 1.9 1.4 - 2.5 mg/dL ELLIOT Comment:Testing performed by : [address] [address] Blood 02/10/2023 8:34 PM CDT 02/10/2023 8:45 PM CDT [facility] LAB BLOOD ORDERABLES Final Resul t Performing Organization Address [facility] de Phone Number [address] [place] [address] * (ABNORMAL) Basic metabolic panel (02/10/2023 8:34 PM CDT) [facility] Sodium 122(L) 135 - 145 mmol/L ELLIOT Comment:Testing performed by : [address] [address] Potassium, pl 4.2 3.3 - 4.9 mmol/L ELLIOT Comment:Testing performed by : [address] [address] Chloride 94(L) 97 - 110 mmol/L ELLIOT Comment:Testing performed by : [address] [address] CO2 7(L) 22 - 32 mmol/L ELLIOT Comment:Testing performed by : [address] [address] Anion gap 21(H) 2 - 15 mmol/L ELLIOT Comment:Testing performed by : [address] [address] BUN 12 8 - 25 mg/dL ELLIOT HINES Comment:Testing performed by : [address] [address] Creatinine 0.70(L) 0.80 - 1.30 mg/dL ELLIOT HINES Comment: The specimen is icteric. A high bilirubin level is known to cause a false decrease in measured creatinine. Testing performed by: [address] [address] Glucose 240(H) 70 - 199 mg/dL ELLIOT Comment: Interpretive [...] was last revised 2022. Testing performed by: [facility], [address] [place] [address]., [address] Calcium 8.2(L) 8.5 - 10.3 mg/dL ELLIOT Comment:Testing performed by : [address] [address] Blood 02/10/2023 8:34 PM CDT 02/10/2023 8:45 PM CDT Laura Prieto NP LAB BLOOD ORDERABLES Final Resul t ELLIOT HINES [address] [facility] Department [place] [address] * (ABNORMAL) Beta-hydroxybutyrate (02/10/2023 8:34 PM CDT) Beta-Hydroxybut yrate 6.4(H) <=0.5 mmol/L ELLIOT HINES Comment:Lipemic specimen Blood 02/10/2023 8:34 PM CDT 02/10/2023 10:33 PM CDT Laura Prieto TACKING MACHINE OPERATOR LAB BLOOD ORDERABLES Final Resul t Performing Organization Address [facility] de Phone Number SY[address] [address] * (ABNORMAL) POCT glucose (02/10/2023 7:52 PM CDT) Glucose, POC 236(H) 70 - 199 mg/dL ELLIOT Comment:Testing performed by : [address] [address] Glucose comment 1 Use This Result ELLIOT Comment:Testing performed by : [address] [address] Blood 02/10/2023 7:52 PM CDT 02/10/2023 7:52 PM CDT Result [facility] Notinfile Unknown LAB POCT ORDERABLES - DEVICE F inal Result Performing Organization Address [facility] de Phone Number [address] [address] * (ABNORMAL) POCT glucose (02/10/2023 7:17 PM CDT) Glucose, POC 309(H) 70 - 199 mg/dL ELLIOT Comment:Testing performed by : [address] [address] Glucose comment 1 Use This Result ELLIOT Comment:Testing performed by : [address] [address] Blood 02/10/2023 7:17 PM CDT 02/10/2023 7:17 PM CDT Result [facility] Not[employer] Unknown LAB POCT ORDERABLES - DEVICE F inal Result Performing Organization Address [facility] de Phone Number SY[address]NEY[address] [address] * (ABNORMAL) POCT glucose (02/10/2023 6:44 PM CDT) Glucose, POC 271(H) 70 - 199 mg/dL ELLIOT HINES Comment:Testing performed by : [facility], [address] [place] [address]., [address] Glucose comment 1 Use This Result ELLIOT HINES Comment:Testing performed by : [facility], [address] [place] [address]., [address] Blood 02/10/2023 6:44 PM CDT 02/10/2023 6:44 PM CDT us [employer] Unknown LAB POCT ORDERABLES - DEVICE F inal Result Performing Organization Address City/State/[facility] Co de Phone Number ELLIOT HINES [address] [facility] Department [place] [address] * CT Abdomen Pelvis W Contrast (02/10/2023 6:39 PM CDT) Anatomical Region Laterality Modality Body N/A Computed Tomogra phy 02/10/2023 6:46 PM CDT Narrative 02/10/2023 6:58 PM CDT EXAM DESCRIPTION: ?? CT ABDOMEN PELVIS W CONTRAST REASON FOR STUDY: ?? Abdominal pain, acute, nonlocalized, pancreatitis ?? c/o generalized weakness. ??He states that approximally from last 1-2 months he has been having symptoms for polydipsia, polyphagia, polyuria, he saw his primary care doctor who did lab work and was diagnosed with diabetes, was started on metformin and ?? insulin 2 days ago, he came in today because he went to see his primary care doctor who did some lab work and found to have elevated lipase, elevated triglycerides and blood sugar. ??He is complaining of worsening of his weakness and fatigue in last 2-3 ?? days along with abdominal pain and constipation denies any diarrhea. ??Denies any fever or chill. ??Denies any chest pain. ? He does not have any other comorbidity other than family history of diabetes. ?? TECHNIQUE: CT scan of the abdomen and [...] ?? injected via ?? intravenous COMPARISON: ?? Same day chest radiograph REFERENCE: Per ACR white paper recommendations, unless otherwise specified no follow-up imaging is recommended for incidental renal and adrenal lesions per consensus recommendations based on imaging criteria. Further lab evaluation could be pursued based on clinical findings. FINDINGS: There is a 0.5 cm ground-glass nodule in the left lower lobe on series 3, image 2. The heart is normal size without pericardial effusion. ??The aorta is normal in caliber and contour. ??The celiac trunk, superior mesenteric artery, and inferior mesenteric artery are patent. There is diffuse hepatic steatosis but no suspicious lesion in the liver. ??The portal vein, superior mesenteric vein, and splenic vein are patent. ??There is cholelithiasis in the gallbladder but no CT evidence of cholecystitis. ??There is no intrahepatic or extrahepatic biliary ductal dilation. There is mild stranding around the head of the pancreas the pancreatic parenchyma enhances normally. ??There is no dilation of the pancreatic duct. ?? There is no drainable fluid collection. ??The spleen and bilateral adrenal glands are normal. The kidneys enhance symmetrically without hydronephrosis. ??There is a 0.3 cm hypoattenuating lesion in the left lower kidney, too small to characterize. There is diffuse wall thickening of the bladder. ??There is prostatomegaly. There is circumferential thickening of the distal esophagus. ??There is mild wall thickening of the 1st portion of the duodenum likely reactive to the pancreatitis. ??The remaining bowel loops are normal in caliber and contour without wall thickening. ??The appendix is normal. ??There is no free fluid, free air, or lymphadenopathy in the abdomen and pelvis. Mild degenerative changes are noted in the spine. ??No suspicious osseous lesions. IMPRESSION: Mild stranding around the head of the pancreas compatible with acute uncomplicated pancreatitis. ??No drainable fluid collection. Circumferential thickening of the distal esophagus likely secondary to reflux esophagitis. Cholelithiasis without CT evidence of cholecystitis. Hepatic steatosis. Circumferential bladder wall thickening likely secondary to chronic bladder outlet obstruction in the setting of prostatomegaly. 0.5 cm ground-glass nodule in the left lower lobe. ??Imaging follow-up should be guided by the Fleischner criteria included below. According to recent guidelines by the Fleischner Society, no follow up is required for incidental nodules less than 6 mm found on incomplete thoracic imaging on the basis of estimated low risk of malignancy. Note: These recommendations do not apply to patients with immunosuppression, or patients with known primary cancer. ?? http://pubs.rsna.org/doi/pdf/10.1148/radiol.3970828788 THIS IS AN ELECTRONICALLY VERIFIED FINAL REPORT 02/10/2023 6:58 PM - Electronically signed by ??Teresa Rankin M.D. QX: QX D: ??02/10/2023 6:58 PM T: ??02/10/2023 6:58 PM Report ID: [id number] Reading Location: ??[id number] Procedure Note Teresa Rankin MD - 02/10/2023 EXAM DESCRIPTION: CT ABDOMEN PELVIS W CONTRAST REASON FOR STUDY: Abdominal pain, acute, nonlocalized, pancreatitis c/o generalized weakness. He states that approximally from last 1-2months he has been having symptoms for polydipsia, polyphagia, polyuria, he saw his primary care doctor who did lab work and was diagnosed with diabetes, was started on metformin and insulin 2 days ago, he came in today because he went to see his primary care doctor who did some lab work and found tohave elevated lipase, elevated triglycerides and blood sugar. He iscomplaining of worsening of his weakness and fatigue in last 2-3 days along withabdominal pain and constipation denies any diarrhea. Denies any fever or chill.Denies any chest pain. He does not have any other comorbidity other thanfamily history of diabetes. TECHNIQUE: CT scan of the abdomen and pelvis performed with intravenousand without oral contrast using helical scanning technique with dynamic intravenous contrast injection. Reconstructed coronal and sagittal MPRimages reviewed. All images stored on PACS. Automated exposure control was used as a dose optimization technique forthis examination. CONTRAST TYPE/DOSE: 100mL of IOVERSOL 350 MG IODINE/ML INTRAVENOUSSYRINGE injected via intravenous COMPARISON: Same day chest radiograph REFERENCE: Per ACR white paper recommendations, unless otherwise specifiedno follow-up imaging is recommended for incidental renal and adrenal lesionsper consensus recommendations based on imaging criteria. Further labevaluation could be pursued based on clinical findings. FINDINGS: There is a 0.5 cm ground-glass nodule in the left lower lobe on series 3, image 2. The heart is normal size without pericardial effusion. The aorta isnormal in caliber and contour. The celiac trunk, superior mesenteric artery, and inferior mesenteric artery are patent. There is diffuse hepatic steatosis but no suspicious lesion in the liver.The portal vein, superior mesenteric vein, and splenic vein are patent. Thereis cholelithiasis in the gallbladder but no CT evidence of cholecystitis.There is no intrahepatic or extrahepatic biliary ductal dilation. There is mild stranding around the head of the pancreas the pancreatic parenchyma enhances normally. There is no dilation of the pancreaticduct. There is no drainable fluid collection. The spleen and bilateral adrenal glands are normal. The kidneys enhance symmetrically without hydronephrosis. There is a 0.3cm hypoattenuating lesion in the left lower kidney, too small tocharacterize. There is diffuse wall thickening of the bladder. There is prostatomegaly. There is circumferential thickening of the distal esophagus. There ismild wall thickening of the 1st portion of the duodenum likely reactive to the pancreatitis. The remaining bowel loops are normal in caliber and contour without wall thickening. The appendix is normal. There is no free fluid, free air, or lymphadenopathy in the abdomen and pelvis. Mild degenerative changes are noted in the spine. No suspicious osseous lesions. IMPRESSION: Mild stranding around the head of the pancreas compatible with acute uncomplicated pancreatitis. No drainable fluid collection. Circumferential thickening of the distal esophagus likely secondary toreflux esophagitis. Cholelithiasis without CT evidence of cholecystitis. Hepatic steatosis. Circumferential bladder wall thickening likely secondary to chronicbladder outlet obstruction in the setting of prostatomegaly. 0.5 cm ground-glass nodule in the left lower lobe. Imaging follow-upshould be guided by the Fleischner criteria included below. According to recent guidelines by the Fleischner Society, no follow up is required for incidental nodules less than 6 mm found on incompletethoracic imaging on the basis of estimated low risk of malignancy. Note: These recommendations do not apply to patients withimmunosuppression, or patients with known primary cancer. http://pubs.rsna.org/doi/pdf/10.1148/radiol.7961507972 THIS IS AN ELECTRONICALLY VERIFIED FINAL REPORT 02/10/2023 6:58 PM - Electronically signed by Teresa Rankin M.D. QX: QX Report ID: [id number] Reading Location: [id number] Laura Prieto TACKING MACHINE OPERATOR IMG CT PROCEDURES Final Result * XR Chest 1 Vw Portable (02/10/2023 6:05 PM CDT) Anatomical Region Laterality Modality Body, Chest N/A Computed Radiogr aphy 02/10/2023 6:31 PM CDT Narrative 02/10/2023 6:33 PM CDT EXAM DESCRIPTION: XR CHEST 1 VIEW REASON FOR STUDY: dka ?? Had blood work this morning. Sent by PCP for lipase 2400 and elevated WBC. Pt recently dx with diabetes. Mild abdominal. Given zofran by PCP for nausea today. ?? TECHNIQUE: AP ??radiographic view(s) of the chest. COMPARISON: None FINDINGS: LUNGS: ??No focal opacity, pleural effusion, or pneumothorax. ?? HEART/MEDIASTINUM: ??Cardiac silhouette normal in size. Mediastinal and hilar contours appear normal. LINES/TUBES: ??None. BONES: ??No acute osseous abnormality. IMPRESSION: No acute cardiopulmonary abnormality. THIS IS AN ELECTRONICALLY VERIFIED FINAL REPORT 02/10/2023 6:33 PM - Electronically signed by ??Teresa Rankin M.D. QX: QX D: ??02/10/2023 6:33 PM T: ??02/10/2023 6:33 PM Report ID: [id number] Reading Location: ??[id number] Procedure Note Teresa Rankin MD - 02/10/2023 EXAM DESCRIPTION: XR CHEST 1 VIEW REASON FOR STUDY: dka Had blood work this morning. Sent by PCP for lipase 2400 and elevated WBC.Pt recently dx with diabetes. Mild abdominal. Given zofran by PCP for nausea today. TECHNIQUE: AP radiographic view(s) of the chest. COMPARISON: None FINDINGS: LUNGS: No focal opacity, pleural effusion, or pneumothorax. HEART/MEDIASTINUM: Cardiac silhouette normal in size. Mediastinal andhilar contours appear normal. LINES/TUBES: None. BONES: No acute osseous abnormality. IMPRESSION: No acute cardiopulmonary abnormality. THIS IS AN ELECTRONICALLY VERIFIED FINAL REPORT 02/10/2023 6:33 PM - Electronically signed by Teresa Rankin M.D. QX: QX Report ID: [id number] Reading Location: [place] [address] us Mattyarash Ida TACKING MACHINE OPERATOR IMG XR PROCEDURES Final Result * eGFR (02/10/2023 6:02 PM CDT) eGFR 108 mL/min/1. 73 m2 ELLIOT HINES [...] was last reviewed 2021. Testing performed by: [facility], [address] [place] [address], [place]., [address] Blood 02/10/2023 6:02 PM CDT 02/10/2023 6:12 PM CDT Laura Prieto TACKING MACHINE OPERATOR LAB BLOOD ORDERABLES Final Resul t Performing Organization Address City/[facility] Co de Phone Number SYDNEY[address] [employer] [place] [address] * (ABNORMAL) Phosphorus (02/10/2023 6:02 PM CDT) Phosphorus, pl 2.2(L) 2.3 - 4.5 mg/dL ELLIOT Comment:Testing performed by : [address] [address] Blood 02/10/2023 6:02 PM CDT 02/10/2023 6:12 PM CDT Laura Prieto LAB BLOOD ORDERABLES Final Resul t Performing Organization Address [facility] de Phone Number [address] [address] * Magnesium (02/10/2023 6:02 PM CDT) Pathologist [facility] Magnesium 1.8 1.4 - 2.5 mg/dL ELLIOT Comment:Testing performed by : [address] [address] Blood 02/10/2023 6:02 PM CDT 02/10/2023 6:12 PM CDT Laura Prieto TACKING MACHINE OPERATOR LAB BLOOD ORDERABLES Final Resul t Performing Organization Address City/[facility] Co de Phone Number [id number] [address] * Lactate (02/10/2023 6:02 PM CDT) Lactate 2.0 0.7 - 2.0 mmol/L ELLIOT Comment: Lipemic specimen Testing performed by: [address] [address] Blood 02/10/2023 6:02 PM CDT 02/10/2023 6:12 PM CDT us Laura Prieto NP LAB BLOOD ORDERABLES Final Resul t ELLIOT [address] [facility] Department [place] [address] * (ABNORMAL) Basic metabolic panel (02/10/2023 6:02 PM CDT) Sodium 126(L) 135 - 145 mmol/L ELLIOT Comment:Testing performed by : [address] [address] Potassium, pl 4.2 3.3 - 4.9 mmol/L ELLIOT Comment:Testing performed by : [address] [address] Chloride 95(L) 97 - 110 mmol/L ELLIOT Comment:Testing performed by : [address] [address] CO2 8(L) 22 - 32 mmol/L ELLIOT Comment:Testing performed by : [address] [address] Anion gap 23(H) 2 - 15 mmol/L ELLIOT Comment:Testing performed by : [address] [address] BUN 12 8 - 25 mg/dL ELLIOT Comment: Lipemic specimen Testing performed by: [address] [address] Creatinine 0.90 0.80 - 1.30 mg/dL ELLIOT Comment: The specimen is icteric. A high bilirubin level is known to cause a false decrease in measured creatinine. Lipemic specimen Testing performed by: [address] [address] Glucose 271(H) 70 - 199 mg/dL ELLIOT Comment: Lipemic specimen Interpretive Data Fasting glucose >/= 126 mg/dl [...] was last revised 2022. Testing performed by: [address] [address] Calcium 8.2(L) 8.5 - 10.3 mg/dL ELLIOT Comment: Lipemic specimen Testing performed by: [address] [address] Blood 02/10/2023 6:02 PM CDT 02/10/2023 6:12 PM CDT us Laura Prieto TACKING MACHINE OPERATOR LAB BLOOD ORDERABLES Final Resul t Performing Organization Address [facility] Co de Phone Number [address] [place] [address] * (ABNORMAL) POCT glucose (02/10/2023 6:00 PM CDT) [facility] Glucose, POC 244(H) 70 - 199 mg/dL ELLIOT Comment:Testing performed by : [address] [address] Glucose comment 1 Use This Result ELLIOT Comment:Testing performed by : [address] [address] Blood 02/10/2023 6:00 PM CDT 02/10/2023 6:00 PM CDT us Notinfile Unknown LAB POCT ORDERABLES - DEVICE F inal Result Performing Organization Address City/[facility] Co de Phone Number [address] [place] [address] * (ABNORMAL) Blood gas, venous (02/10/2023 4:24 PM CDT) pH, Venous 7.11(C) 7.32 - 7.43 ELLIOT Comment: crit ph reported to RN Brie De Luna ??by EKM 1630 Testing performed by: [address] [address] PCO2, Venous 22(L) 40 - 50 mmHg ELLIOT Comment:Testing performed by : [address] [address] PO2, Venous 39 mmHg ELLIOT Comment: Interpretive Data No Reference Range Established Current Interpretive Data was last revised on 2018. Testing performed by: [address] [address] HCO3 Venous, Calculated 7(C) 20 - 30 mmol/L ELLIOT Comment: crit bicarb reported to RN Brie De Luna ??1630 ??by EKM Testing performed by: [address] [address] BE, venous -21 mmol/L ELLIOT Comment: Interpretive Data No Reference Range Established Current Interpretive Data was last revised on 2018. Testing performed by: [address] [address] Blood 02/10/2023 4:24 PM CDT 02/10/2023 4:27 PM CDT us Laura Prieto TACKING MACHINE OPERATOR LAB BLOOD ORDERABLES Final Resul t [facility] [address] [facility] Department [place] [address] * (ABNORMAL) POCT glucose (02/10/2023 4:13 PM CDT) Glucose, POC 336(H) 70 - 199 mg/dL ELLIOT Comment:Testing performed by : [address] [address] Glucose comment 1 Use This Result ELLIOT Comment:Testing performed by : [address] [address] Blood 02/10/2023 4:13 PM CDT 02/10/2023 4:13 PM CDT us Notinfile Unknown LAB POCT ORDERABLES - DEVICE F inal Result E[facility] Department [place] [address] * Blood culture Blood Peripheral (02/10/2023 3:56 PM CDT) Report Final Report: No growth ELLIOT HINES Comment:Testing performed by : [facility], [address] [place] [address] Blood (Peripheral) 02/10/2023 3:56 PM CDT 02/10/2023 9:19 PM CDT Narrative ELLIOT - 02/15/2023 7:00 AM CDT From a different site than #1. Draw Blood cultures before administration of Antibiotics Collection->Peripheral 1. ?Blood cultures are incubated for 4 days on a continuously monitored blood culture system. The first report of a negative culture is issued within 24 hours of receipt of the specimen in the laboratory. 2. ?Positive culture results are reported as soon as they are detected. 3. ?The most important factor for detection of microbes in the setting of bloodstream infection is the volume of blood submitted for culture. Failure to collect an optimal blood volume can result in false negative blood cultures. For pediatric patients, the recommended blood volume to collect is 1 mL of blood per year of patient age (up to 20 mL) per blood culture set. For adult patients, 20 mL of blood, divided equally between aerobic and anaerobic blood culture bottles, is recommended for each blood culture set. 4. ?For blood cultures with Gram-positive cocci, a rapid molecular test for organism identification may be performed using the Telerikigene Gram-Positive Blood Culture Assay. This assay detects microbial DNA in positive blood culture broth via hybridization of target DNA to capture oligonucleotides on a microarray. This assay has been cleared by the [place] Food and Drug Administration and its performance characteristics have been verified by the [facility]biology [facility]. 5. ?For questions about this culture, contact the Microbiology Laboratory at [phone]. Interpretive data was last revised on 2020. Laura Prieto NP LAB MICROBIOLOGY - GENERAL ORDER ANISH Final Result ELLIOT HINES [address] [facility] Department [place] [address] * Blood culture Blood Peripheral (02/10/2023 3:56 PM CDT) Report Final Report: No growth ELLIOT HINES Comment:Testing performed by : [facility], [address] [place]., [address] Blood (Peripheral) 02/10/2023 3:56 PM CDT 02/10/2023 9:19 PM CDT Narrative ELLIOT - 02/15/2023 7:00 AM CDT Draw Blood cultures before administration of Antibiotics Collection->Peripheral 1. ?Blood cultures are incubated for 4 days on a continuously monitored blood culture system. The first report of a negative culture is issued within 24 hours of receipt of the specimen in the laboratory. 2. ?Positive culture results are reported as soon as they are detected. 3. ?The most important factor for detection of microbes in the setting of bloodstream infection is the volume of blood submitted for culture. Failure to collect an optimal blood volume can result in false negative blood cultures. For pediatric patients, the recommended blood volume to collect is 1 mL of blood per year of patient age (up to 20 mL) per blood culture set. For adult patients, 20 mL of blood, divided equally between aerobic and anaerobic blood culture bottles, is recommended for each blood culture set. 4. ?For blood cultures with Gram-positive cocci, a rapid molecular test for organism identification may be performed using the Telerikigene Gram-Positive Blood Culture Assay. This assay detects microbial DNA in positive blood culture broth via hybridization of target DNA to capture oligonucleotides on a microarray. This assay has been cleared by the [place] Food and Drug Administration and its performance characteristics have been verified by the [facility]biology [facility]. 5. ?For questions about this culture, contact the Microbiology Laboratory at [phone]. Interpretive data was last revised on 2020. Laura Prieto NP LAB MICROBIOLOGY - GENERAL ORDER ANISH Final Result Performing Organization Address [facility]/ZIP Co de Phone Number ELLIOT [address] [facility] [place] [address] * (ABNORMAL) Urinalysis, microscopic only (02/10/2023 3:32 PM CDT) WBC, ur 0-5 0 - 5 /HPF ELLIOT Comment:Testing performed by : [address] [address] RBC, ur 3-5(A) 0 - 2 /HPF ELLIOT Comment:Testing performed by : [address] [address] Epithelial cells, squamous, ur 6-10(A) 0 - 5 /HPF [facility] Comment:Testing performed by : [address] [address] Bacteria, ur Trace(A) ELLIOT Comment:Testing performed by : [address] [address] Mucous, ur Present(A) ELLIOT Comment:Testing performed by : [address] [address] Culture Reflex Comment Reflex conditions for urine culture (WBC >10) not met. ELLIOT Comment:Testing performed by : [address] [address] Urine 02/10/2023 3:32 PM CDT 02/10/2023 3:37 PM CDT Laura Prieto NP LAB URINE ORDERABLES Final Resul t Performing Organization Address City/[facility]/ZIP Co de Phone Number ELLIOT [address] [facility] [place] [address] * (ABNORMAL) Urinalysis reflex to microscopic and culture Urine (02/10/2023 3:32 PM CDT) Color, ur Yellow Yellow ELLIOT Comment:Testing performed by : [facility], [address] [place] [address], [place]., [address] Clarity, ur Cloudy(A) Clear ELLIOT Comment:Testing performed by : [facility], [address] [place] [address], [place]., [address] Specific gravity, ur 1.026 1.003 - 1.030 ELLIOT Comment:Testing performed by : [address], [place]., [address] pH, urine 5.0 ELLIOT Comment:Testing performed by : [address], [place]., [address] Protein, ur ql 3+(A) Negative ELLIOT Comment:Testing performed by : [address], [place]., [address] Glucose, ur ql 3+(A) Negative ELLIOT Comment:Testing performed by : [address], [place]., [address] Ketones, ur 2+(A) Negative ELLIOT Comment:Testing performed by : [address], [place]., [address] Bilirubin, ur Negative Negative ELLIOT Comment:Testing performed by : [address], [place]., [address] Blood, ur 3+(A) Negative ELLIOT Comment:Testing performed by : [address] [address] Urobilinogen, ur <2.0 <2.0 mg/dL ELLIOT Comment:Testing performed by : [address] [address] Nitrite, ur Negative Negative ELLIOT Comment:Testing performed by : [address] [address] Leukocyte esterase, ur Negative Negative ELLIOT Comment:Testing performed by : [address] [address] UA reflex comment Reflex to microscopic UA will be performed. ELLIOT Comment:Testing performed by : [address], [place]., [address] Urine 02/10/2023 3:32 PM CDT 02/10/2023 3:37 PM CDT Narrative ELLIOT HINES - 02/10/2023 3:49 PM CDT ?? Urine pH is affected by diet, medications, systemic acid-base disturbances, and renal tubular function. ??pH may affect urinary stone formation. ??For example, urine pH below 6.0 may help reduce the tendency for calcium phosphate stones and pH greater than 6.0 may reduce the tendency for uric acid stone formation. Source: [facility] [employer] Last revised 10-06-2017 Laura Prieto NP LAB MICROBIOLOGY - GENERAL ORDER ANISH Final Result Performing Organization Address City/[facility] Co de Phone Number ELLIOT [address] [facility] Department [place] [address] * ECG 12 lead (02/10/2023 3:26 PM CDT) Ventricular Rate EKG/Min 132 BPM [facility] Atrial Rate 132 BPM [facility] NC-Interval (MSEC) 150 ms [facility] QRS-Interval (MSEC) 66 ms [facility] QT-Interval (MSEC) 272 ms [facility] QTc 403 ms [facility] P [place] 61 degrees [facility] R [place] 9 degrees [facility] T [place] 6 degrees [facility] Diagnosis Sinus tachycardia Otherwise normal ECG No previous ECGs available [facility] 02/10/2023 3:26 PM CDT 02/12/2023 12:46 AM CDT Laura Prieto NP ECG ORDERABLES Final Result Performing Organization Address [facility] Co de Phone Number [facility] * (ABNORMAL) Manual Differential (02/10/2023 3:22 PM CDT) Differential Manual ELLIOT HINES Comment:Testing performed by : [address] [address] Cells Counted 100 ELLIOT HINES Comment:Testing performed by : [address] [address] Neutrophil abs 30.3(H) 1.7 - 6.5 K/cumm ELLIOT Comment:Testing performed by : [facility], [address] [place] [address], [place]., [address] Imm gran abs 3.5(H) 0.0 - 0.1 K/cumm ELLIOT Comment:Testing performed by : [address], [place]., [address] Lymphocyte abs 4.3(H) 0.8 - 3.3 K/cumm ELLIOT Comment:Testing performed by : [address], [place]., [address] Monocyte abs 4.8(H) 0.2 - 0.8 K/cumm ELLIOT Comment:Testing performed by : [address] [address] Eosinophil abs 0.4 0.0 - 0.5 K/cumm ELLIOT Comment:Testing performed by : [address] [address] Neutrophil pct 70.0 % [facility] Comment: Interpretive Data Percent cell count reference ranges are not reported, since discordance with absolute values may lead to misinterpretation of CBC data. Current Interpretive Data was last revised on 2018. Testing performed by: [address] [address] Lymphocyte pct 7.0 % [facility] Comment: Interpretive Data Percent cell count reference ranges are not reported, since discordance with absolute values may lead to misinterpretation of CBC data. Current Interpretive Data was last revised on 2018. Testing performed by: [address] [address] Monocyte pct 11.0 % [facility] Comment: Interpretive Data Percent cell count reference ranges are not reported, since discordance with absolute values may lead to misinterpretation of CBC data. Current Interpretive Data was last revised on 2018. Testing performed by: [address] [address] Eosinophil pct 1.0 % [facility] Comment: Interpretive Data Percent cell count reference ranges are not reported, since discordance with absolute values may lead to misinterpretation of CBC data. Current Interpretive Data was last revised on 2018. Testing performed by: [facility] [address] [place] [address]., [address] Metamyelocyte pct 8.0 % ELLIOT Comment:Testing performed by : [address], [place]., [address] Variant lymph pct 3.0(H) 0.0 - 0.0 % ELLIOT Comment:Testing performed by : [facility], [address] [place] [address], [place]., [address] Toxic granulation Present ELLIOT Comment:Testing performed by : [address], [place]., [address] RBC morphology Consistent with RBC Indicies ELLIOT Comment:Testing performed by : [address], [place]., [address] Platelet estimate #I LARGE PLATELETS SEEN ELLIOT Comment:Testing performed by : [address], [place]., [address] Morphology scrn #SN MANY BANDS PRESENT ELLIOT Comment:Testing performed by : [address], [place]., [address] Blood 02/10/2023 3:22 PM CDT 02/10/2023 3:27 PM CDT Laura Prieto NP LAB BLOOD ORDERABLES Final Resul t ELLIOT [address] [facility] Department of Laboratories [place], [place] [id number] * eGFR (02/10/2023 3:22 PM CDT) eGFR 108 mL/min/1. 73 m2 ELLIOT HINES [...] was last reviewed 2021. Testing performed by: [address] [address] Blood 02/10/2023 3:22 PM CDT 02/10/2023 3:27 PM CDT Laura Prieto LAB BLOOD ORDERABLES Final Resul t Performing Organization Address City/[facility] Co de Phone Number [place] [phone] [facility] [employer] [place] [address] * Sepsis Lactate w/ Reflex (02/10/2023 3:22 PM CDT) Pathologist [facility] Sepsis Lactate 1.5 0.7 - 2.0 mmol/L [facility] Comment: Lipemic specimen Testing performed by: [address] [address] Blood 02/10/2023 3:22 PM CDT 02/10/2023 3:43 PM CDT Laura Prieto NP LAB BLOOD ORDERABLES Final Resul t Performing Organization Address City/[facility]/ZIP Co de Phone Number [place] [phone] [facility] [employer] [place] [address] * (ABNORMAL) Lipase (02/10/2023 3:22 PM CDT) Pathologist [facility] Lipase 1,341(H) 10 - 99 Units/L ELLIOT HINES Comment:Testing performed by : [address] [address] Blood 02/10/2023 3:22 PM CDT 02/10/2023 3:27 PM CDT us Laura Youngxavier FISCHER LAB BLOOD ORDERABLES Edited Resu lt - Final ELLIOT [address] [facility] Department [place] [address] * (ABNORMAL) Comprehensive metabolic panel (02/10/2023 3:22 PM CDT) Sodium 119(C) 135 - 145 mmol/L ELLIOT HINES Comment: Critical Result called to and read back by YUDELKA Baird /ED, DATE: 2023-02-10 16:43:43 BY: Prema Scruggs MLS [id number] Testing performed by: [address] [address] Potassium, pl 5.0(H) 3.3 - 4.9 mmol/L ELLIOT Comment: HEMOLYZED: Hemolysis interferes with the above test. Testing performed by: [address] [address] Chloride 87(L) 97 - 110 mmol/L ELLIOT Comment:Testing performed by : [address] [address] CO2 8(L) 22 - 32 mmol/L ELLIOT Comment: Lipemic specimen Testing performed by: [address] [address] Anion gap 24(H) 2 - 15 mmol/L ELLIOT Comment:Testing performed by : [address] [address] BUN 13 8 - 25 mg/dL ELLIOT Comment: Lipemic specimen Testing performed by: [address] [address] Creatinine 0.90 0.80 - 1.30 mg/dL ELLIOT Comment: The specimen is icteric. A high bilirubin level is known to cause a false decrease in measured creatinine. Lipemic specimen Testing performed by: [address] [address] Glucose 337(H) 70 - 199 mg/dL ELLIOT Comment: Lipemic specimen Interpretive Data Fasting glucose >/= 126 mg/dl [...] was last revised 2022. Testing performed by: [address] [address] Calcium 9.7 8.5 - 10.3 mg/dL [facility] Comment: Lipemic specimen Testing performed by: [address] [address] Bilirubin, total 0.2 0.1 - 1.2 mg/dL [facility] Comment:Testing performed by : [address] [address] Protein, pl 6.9 6.5 - 8.5 g/dL [facility] Comment:Testing performed by : [address] [address] Albumin 3.6 3.5 - 5.0 g/dL [facility] Comment: Lipemic specimen Testing performed by: [address] [address] Alk phos 127 40 - 130 Units/L [facility] Comment:Testing performed by : [address] [address] ALT 18 7 - 55 Units/L [facility] Comment: HEMOLYZED: Hemolysis interferes with the above test. Lipemic specimen Testing performed by: [address] [address] AST 21 10 - 50 Units/L [facility] Comment: HEMOLYZED: Hemolysis interferes with the above test. Lipemic specimen Testing performed by: [address] [address] Blood 02/10/2023 3:22 PM CDT 02/10/2023 3:27 PM CDT us Laura Prieto NP LAB BLOOD ORDERABLES Final Resul t ELLI[facility] Department [place] [address] * (ABNORMAL) CBC with auto differential (02/10/2023 3:22 PM CDT) WBC 43.3(H) 3.8 - 9.9 K/cumm ELLIOT HINES Comment:Testing performed by : [address] [address] Hgb 19.9(H) 13.0 - 17.5 g/dL ELLIOT HINES Comment:Testing performed by : [address] [address] Hct 43.2 38.9 - 50.3 % ELLIOT Comment:Testing performed by : [address] [address] Plt 447(H) 150 - 400 K/cumm ELLIOT HINES Comment:Testing performed by : [address] [address] MPV 9.1 9.1 - 12.3 fL ELLIOT HINES Comment:Testing performed by : [address] [address] RBC 5.08 4.30 - 5.80 M/cumm ELLIOT HINES Comment:Testing performed by : [address] [address] MCV 85.0 81.3 - 96.4 fL ELLIOT HINES Comment:Testing performed by : [address] [address] MCH 39.2(H) 27.1 - 33.3 pg ELLIOT HINES Comment:Testing performed by : [address] [address] MCHC 46.0(H) 32.3 - 35.7 g/dL ELLIOT HINES Comment:Testing performed by : [address] [address] RDW CV 13.2 11.1 - 14.9 % ELLIOT HINES Comment:Testing performed by : [address] [address] RDW SD 40.5 35.7 - 48.1 fL ELLIOT HINES Comment:Testing performed by : [address] [address] NRBC abs 0.00 0.00 - 0.01 K/cumm ELLIOT HINES Comment:Testing performed by : [address] [address] Blood 02/10/2023 3:22 PM CDT 02/10/2023 3:27 PM CDT us Laura Prieto NP LAB BLOOD ORDERABLES Edited Resu lt - Final ELLIOT [address] [facility] Department [place] [address] * (ABNORMAL) Hemoglobin A1c (02/10/2023 3:21 PM CDT) [facility] Hgb A1C 13.0(H) 4.0 - 5.6 % ELLIOT HINES Comment:Testing performed by : [address] [address] Estimated Average Glucose 326 mg/dL ELLIOT HINES Comment: The ADA recommends reporting an estimated Average Glucose (eAG) with all Hemoglobin A1c results using the equation derived from a study of 507 normal and diabetic adults. ??Minority populations were underrepresented and children were not included. ?? (Diabetes Care 31:5471-2681, 2008). ??The eAG is not equivalent to a fasting glucose. Testing performed by: [address] [address] Blood 02/10/2023 3:21 PM CDT 02/10/2023 5:23 PM CDT us Laura Prieto NP LAB BLOOD ORDERABLES Final Resul t Performing Organization Address [facility] Co de Phone Number ELLIOT [address] [facility] [employer] [place] [address] * Ethanol (02/10/2023 3:21 PM CDT) Ethanol <10 <=10 mg/dL ELLIOT Comment: Interpretive Data Legal limit of intoxication > or = 80 mg/dL Levels > or = 400 mg/dL are potentially TOXIC. Current interpretive data was last revised on 2018. Testing performed by: [facility], [address] [place] [address]., [address] Blood 02/10/2023 3:21 PM CDT 02/10/2023 5:24 PM CDT Laura Prieto LAB BLOOD ORDERABLES Final Resul t Performing Organization Address [facility] de Phone Number ELLIOT [address] [facility] of [employer] [place] [address] documented in this encounter Visit Diagnoses Diagnosis Diabetic ketoacidosis without coma associated with other specified diabetes mellitus (HCC)- Primary Diabetic ketoacidosis without coma associated with other specified diabetes mellitus (HCC) Acute pancreatitis, unspecified complication status, unspecified pancreatitis type Hypertriglyceridemia Pure hyperglyceridemia Acute pancreatitis documented in this encounter Admitting Diagnoses Diagnosis Diabetic ketoacidosis without coma associated with other specified diabetes mellitus (HCC) Acute pancreatitis documented in this encounter Administered Medications Inactive Administered Medications - up to 3 most recent administrations Medication Order MAR Action Action Date Dose Rate Site acetaminophen (TYLENOL) tablet 650 mg 650 mg, oral, Every 6 hours PRN, 1st line for pain, Starting on Tue02/11/23 at 0652, Indications: PainIndications:Pain Given 02/11/2023 8:52 AM CDT 650 mg dextrose (D10W) 10% bolus 250 mL 250 mL, intravenous, at 1,000 mL/hr, Administer over 15 Minutes, Every 15 min PRN, blood glucose less than 70 mg/dL and UNABLE to swallow/take PO glucose/juice., Starting on Tue02/13/23 at 0711, After treatment for hypoglycemia, recheck BG followed by treatment every 15 minutes until the BG is greater than 100 mg/dL. Then check BG 1 hour post treatment. If BG is less than 100 mg/dL, repeat Q15 minute BG checks and treatment. Call MD for each episode of hypoglycemia., Indications: hypoglycemic disorderIndications:hypog lycemic disorder dextrose (GLUTOSE) 40 % gel 15 g 15 g, oral, Every 15 min PRN, low blood sugar, blood glucose less than 70 mg/dL, Starting on Tue02/13/23 at 0711, If patient is alert and able to [...] Call MD for each episode of hypoglycemia. RN ADVICE STATES GLUTOSE-15 CONTAINS GLUCOSE 40% W/W (50% W/V), Indications: hypoglycemic disorderIndications:hypog lycemic disorder dextrose 5% infusion 100 mL/hr, intravenous, Continuous, Starting on Liya 02/10/23 at 1701, Start when blood glucose less than 250 mg/dL and decrease rate of previous IV fluid infusion order. Notify MD when blood glucose less than 250 mg/dL and adjusting IV fluids. Rate/Dose Verify 02/11/2023 10:18 PM CDT 100 mL/hr 100 mL/hr Rate/Dose Verify 02/11/2023 9:01 PM CDT 100 mL/hr 100 mL/ hr Rate/Dose Verify 02/11/2023 7:29 PM CDT 100 mL/hr 100 mL/ hr enoxaparin (LOVENOX) syringe 40 mg 40 mg, subcutaneous, Daily (for enoxaparin), First dose on Tue02/11/23 at 2100, Indications: VTE ProphylaxisIndications:VTE Prophylaxis Given 02/13/2023 8:41 PM CDT 40 mg Left Lower Abdomen Given 02/12/2023 9:28 PM CDT 40 mg Ri ght Lower Abdomen Given 02/11/2023 8:10 PM CDT 40 mg Le ft Lower Abdomen fenofibrate nanocrystallized (TRICOR) tablet 145 mg 145 mg, oral, Daily, First dose on Tue02/12/23 at 1830 Given 02/15/2023 9:38 AM CDT 145 mg Given 02/14/2023 7:49 AM CDT 145 mg Given 02/13/2023 8:02 AM CDT 145 mg glucagon injection 1 mg 1 mg, intramuscular, Every 30 min PRN, low blood sugar, blood glucose less than 70 mg/dL AND no IV access AND unable to take PO glucose/juice., Starting on Tue02/13/23 at 0711, After Glucagon is administered, position patient on [...] 1 mL SWFI. Use immediately following reconstitution. insulin glargine (LANTUS, SEMGLEE) 100 unit/mL injection 50 Units 50 Units, subcutaneous, Nightly, First dose on Tue02/11/23 at 2215, Do not mix with other insulins Given 02/11/2023 10:08 PM CDT 50 Units Right Lower Abdomen insulin glargine (LANTUS, SEMGLEE) 100 unit/mL injection 60 Units 60 Units, subcutaneous, Nightly, First dose (after last modification) on Tue02/12/23 at 2145, Do not mix with other insulins Given 02/12/2023 10:09 PM CDT 60 Units Right Upper Arm insulin glargine (LANTUS, SEMGLEE) 100 unit/mL injection 75 Units 75 Units, subcutaneous, Nightly, First dose (after last modification) on Tue02/13/23 at 2100, Do not mix with other insulins Given 02/14/2023 9:42 PM CDT 75 Units Left Lower Abdomen Given 02/13/2023 8:41 PM CDT 75 Units Le ft Lower Abdomen insulin lispro (HumaLOG, ADMELOG) 100 unit/mL injection 0-10 Units 0-10 Units, subcutaneous, 3 times daily with meals, First dose on Tue02/13/23 at 0800, Blood glucose mg/dL: 149 or less: No insulin 150-199: add 2 unit 200-249: add 4 units 250-299: add 6 units 300-349: add 8 units and notify physician for adjustment of insulin orders. 350-399: add 10 units and notify physician for adjustment of insulin orders. Over 400: Notify physician for adjustment of insulin orders. Do NOT hold for NPO Status, Indications: Diabetes MellitusIndications:Diabetes Mellitus Given 02/15/2023 12:05 PM CDT 8 Units Left Upper Abdomen Given 02/15/2023 8:35 AM CDT 2 Units Le ft Lower Abdomen Given 02/14/2023 4:24 PM CDT 2 Units L eft Lower Abdomen insulin lispro (HumaLOG, ADMELOG) 100 unit/mL injection 0-5 Units 0-5 Units, subcutaneous, Nightly, First dose on 02/13/23 at 2100, Blood glucose mg/dL: 149 or less: No [...] NPO Status, Indications: Diabetes MellitusIndications:Diabetes Mellitus Given 02/14/2023 9:40 PM CDT 2 Units Left Lower Abdomen insulin lispro (HumaLOG, ADMELOG) 100 unit/mL injection 10 Units 10 Units, subcutaneous, 3 times daily with meals, First dose (after last modification) on 02/13/23 at 1200, If BG greater than or equal to 100 mg/dL, give dose with meals when tray arrives in the room. If BG less than 100 mg/dL or history of poor intake, give after meals. If patient eating less than 50% of meal, call MD for holding or reducing meal insulin dose. Hold prandial insulin if NPO, unable to eat, or if BG less than 70 mg/dL., Indications: Diabetes MellitusIndications:Diabetes Mellitus Given 02/15/2023 12:05 PM CDT 10 Units Left Upper Abdomen Given 02/15/2023 8:35 AM CDT 10 Units Le ft Lower Abdomen Given 02/14/2023 4:24 PM CDT 10 Units Le ft Lower Abdomen insulin lispro (HumaLOG, ADMELOG) 100 unit/mL injection 15 Units 15 Units, subcutaneous, Once, On 02/13/23 at 0930, For 1 dose Given 02/13/2023 9:12 AM CDT 15 Units Left Upper Arm insulin lispro (HumaLOG, ADMELOG) 100 unit/mL injection 5 Units 5 Units, subcutaneous, Once, On 02/13/23 at 1200, For 1 dose, Indications: with lunch onceIndications:with lunch once Given 02/13/2023 11:56 AM CDT 5 Units Left Upper Arm insulin lispro (HumaLOG, ADMELOG) 100 unit/mL injection 6 Units 6 Units (rounded from 5.6523 Units = 0.083 Units/kg ? 68.1 kg), subcutaneous, 3 times daily with meals, First dose on 02/13/23 at 0800, If BG greater than or equal to 100 mg/dL, give dose with meals when tray arrives in the room. If BG less than 100 mg/dL or history of poor intake, give after meals. If patient eating less than 50% of meal, call MD for holding or reducing meal insulin dose. Hold prandial insulin if NPO, unable to eat, or if BG less than 70 mg/dL., Indications: Diabetes MellitusIndications:Diab etes Mellitus Given 02/13/2023 8:03 AM CDT 6 Units Right Upper Arm insulin NPH (HumuLIN N, NovoLIN N) 100 unit/mL injection 20 Units 20 Units, subcutaneous, Once, On 02/13/23 at 0930, For 1 dose Given 02/13/2023 9:12 AM CDT 20 Units Left Upper Arm insulin regular (HumuLIN R, NovoLIN R) 100 unit/mL injection 7 Units 7 Units (rounded from 6.67 Units = 0.1 Units/kg ? 66.7 kg), intravenous, Once, On Liya 02/10/23 at 1701, For 1 dose, Do NOT administer insulin bolus or infusion until K greater than 3.5 mmol/L., Indications: diabetic ketoacidosisIndications: diabetic ketoacidosis Given 02/10/2023 5:29 PM CDT 7 Units insulin regular (HumuLIN R, NovoLIN R) 100 Units in sodium chloride 0.9% 100 mL (1 Units/mL) infusion 0-30 Units/hr (0-30 mL/hr), 1 units/mL, intravenous, Titrated, Starting on Liya 02/10/23 at 1701, Until 02/13/23 at 0716, Indications: diabetic ketoacidosis, NON-WEIGHT BASED DOSING Do NOT administer insulin bolus or infusion until K greater than 3.5 mmol/L. Initial Rate: : 6.5 units/hour. (0.1 units/kg/hr- max 10 units per hour) Blood Glucose (BG) Decreasing OR Same as Last Value BG less than 100 mg/dL: - Hold insulin infusion and notify MD. Do NOT hold infusion for more than 1 hour. Give D10 250mL IVPB over 15minutes (if BG <50mg/dL and patient has an altered level of consciousness give D50 (25gm) IV Push over 2 minutes instead of D10). - Check BG Q15 minutes and continue treatment until BG >100mg/dL. - Restart Insulin Drip at 50% of the prior IV rate when BG is >100mg/dL. Minimum infusion rate of 1 unit/hour. - Contact MD to determine if the D5W rate should be increased above the 100mL/hour rate. BG 100 - 150 mg/dL: - If BG decreasing by 30mg/dL/hour or more - decrease insulin drip by 50% and call MD. - If BG decreasing by less than 30mg/dL/hour - maintain current drip rate BG 151 - 200 mg/dL: - Add D5W IVPB to current fluid orders at 100mL/hour (if not already done), call MD - If BG decreasing by 76 mg/dL/hour or more - decrease insulin drip by 50% - If BG decreasing by 50-75 mg/dL/hour - decrease insulin drip by 25% - If BG decreasing by less than 50 mg/dL/hour - maintain current drip rate BG 201-250 mg/dL: - Add D5W IVF to current fluid orders at 100mL/hour (if not already done), call MD. - If BG decreasing by 76 mg/dL/hour or more - decrease insulin drip by 50% - If BG decreasing by 30-75 mg/dL/hour - maintain current drip rate - IF BG decreasing less than 30 mg/dL/hour - increase insulin drip by 25% BG greater than 250 mg/dL: - If BG decreasing by greater than 200 mg/dL/hour - decrease drip by 50% - If BG decreasing by 76-199 mg/dL/hour - decrease drip by 25% - If BG decreasing by 51-75 mg/dL/hour - maintain current drip rate. - If BG decreasing by less than 50 mg/dL/hour - increase insulin drip by 25% Blood Glucose (BG) Increasing BG less than 100 mg/dL: - Hold insulin infusion and notify MD. Do NOT hold infusion for more than 1 hour. Give D10 250mL IVPB over 15minutes (if BG <50mg/dL and patient has an altered level of consciousness give D50 (25gm) IV Push over 2 minutes instead of D10). - Check BG Q15 minutes and continue treatment until BG >100mg/dL., - Restart Insulin Drip at 50% of the prior IV rate when BG is >100mg/dL. Minimum infusion rate of 1unit/hour. - Contact MD to determine if the D5W rate should be increased above the 100mL/hour rate. BG 100 - 150 mg/dL: - If patient currently on insulin drip, maintain current rate. - If insulin drip currently held, restart at 50% of the last drip rate. Minimum infusion rate of 1 unit/hr. BG 151 - 200 mg/dL: - Maintain current drip rate BG 201 - 250 mg/dL: - Increase insulin drip by 25% BG greater than 250 mg/dL: - Increase insulin drip by 50% When adjusting drip rate, round changes to the nearest 0.5 units/hour increment For Type I Diabetics or equivalent, Do NOT discontinue drip until insulin maintenance regimen is implemented When new IV tubing is used, completely prime the tubing. Once primed, waste an additional 20 ml of insulin infusion using the IV pump prior to connecting to patient., STATIndications:diabetic ketoacidosis New Bag 02/13/2023 7:07 AM CDT 2.5 Units/hr 2.5 mL/hr Rate/Dose Change 02/13/2023 6:14 AM CDT 2.5 Units/hr 2.5 m L/hr Restarted 02/13/2023 4:56 AM CDT 2 Units/hr 2 mL/hr ioversoL (OPTIRAY 350) syringe 100 mL 100 mL, intravenous, Once in imaging, contrast, Starting on Liya 02/10/23 at 1807, For 1 dose Contrast Given 02/10/2023 6:36 PM CDT 100 mL Lactated Ringer's (LR) bolus 1,000 mL 1,000 mL, intravenous, Once, On 02/12/23 at 0945, For 1 dose New Bag 02/12/2023 9:23 AM CDT 1,000 mL magnesium sulfate 2 g/50 mL in water (premix) 2 g 2 g, intravenous, Administer over 60 Minutes, Once, On Tue02/11/23 at 1015, For 1 dose New Bag 02/11/2023 10:16 AM CDT 2 g magnesium sulfate 2 g/50 mL in water (premix) 2 g 2 g, intravenous, Administer over 60 Minutes, Once, On 02/12/23 at 2130, For 1 dose New Bag 02/12/2023 9:29 PM CDT 2 g magnesium sulfate 2 g/50 mL in water (premix) 2 g 2 g, intravenous, Administer over 60 Minutes, Once, On Tue02/14/23 at 0830, For 1 dose New Bag 02/14/2023 7:55 AM CDT 2 g ondansetron (ZOFRAN) injection 4 mg 4 mg, intravenous, Administer over 2 Minutes, Every 4 hours PRN, nausea, vomiting, Starting on Tue02/11/23 at 0400 pantoprazole (PROTONIX) 4 mg/mL injection 40 mg 40 mg, intravenous, Administer over 2 Minutes, Once, On Liya 02/10/23 at 1725, For 1 dose, For IV Push administration for adults- 40 mg vial: add 10 mL of sodium chloride 0.9% to achieve a final concentration of 4 mg/mL, Indications: Treatment of Non-Bleeding Gastric DisorderIndications:Treatment of Non-Bleeding Gastric Disorder Given 02/10/2023 5:36 PM CDT 40 mg pantoprazole (PROTONIX) 4 mg/mL injection 40 mg 40 mg, intravenous, Administer over 2 Minutes, Daily, First dose (after last reorder) on Tue02/11/23 at 0900, For IV Push administration for adults- 40 mg vial: add 10 mL of sodium chloride 0.9% to achieve a final concentration of 4 mg/mL, Indications: Treatment of Non-Bleeding Gastric DisorderIndications:Treatment of Non-Bleeding Gastric Disorder Given 02/15/2023 8:36 AM CDT 40 mg Given 02/14/2023 7:49 AM CDT 40 mg Given 02/13/2023 8:03 AM CDT [address] (PROTONIX) extended release tablet 40 mg 40 mg, oral, 2 times daily, First dose on Tue02/15/23 at 1100, Do not crush, chew, cut, dissolve, open or otherwise manipulate tablet/capsule., Indications: Stress Ulcer ProphylaxisIndications:Stress Ulcer Prophylaxis piperacillin-tazobactam (ZOSYN) 4.5 g in sodium chloride 0.9% 100 mL IVPB 4.5 g, intravenous, at 200 mL/hr, Administer over 30 Minutes, Once, On Liya 02/10/23 at 1724, For 1 dose, Dose and frequency are based on a 4hr infusion time and may be inappropriate for shorter infusions. Please infuse via secondary line to ensure complete administration. Mini-Bag Plus bag, Indications: Abdominal/Pelvic InfectionIndications:Abdominal /Pelvic Infection New Bag 02/10/2023 5:47 PM CDT 4.5 g 200 mL/hr potassium chloride 40 mEq/520 mL in sodium chloride 0.9% (premix) 40 mEq 40 mEq, intravenous, at 130 mL/hr, Administer over 4 Hours, Once, On Tue02/11/23 at 2215, For 1 dose, Indications: hypokalemiaIndications:hypokal emia Rate/Dose Verify 02/11/2023 10:18 PM CDT 130 mL/hr New Bag 02/11/2023 10:08 PM CDT 40 mEq 130 mL/hr potassium chloride ER (KLOR-CON) extended release tablet 20 mEq 20 mEq, oral, Once, On Tue02/11/23 at 1015, For 1 dose, Do not crush, chew, cut, dissolve, open or otherwise manipulate tablet/capsule. Given 02/11/2023 10:16 AM CDT 20 mEq potassium chloride ER (KLOR-CON) extended release tablet 30 mEq 30 mEq, oral, Every 4 hours, First dose on Tue02/12/23 at 1700, For 2 doses, Total dose = 60 mEq Do not crush, chew, cut, dissolve, open or otherwise manipulate tablet/capsule. Given 02/12/2023 9:28 PM CDT 30 mEq Given 02/12/2023 5:07 PM CDT 30 mEq potassium chloride ER (KLOR-CON) extended release tablet 40 mEq 40 mEq, oral, Once, On Tue02/14/23 at 0830, For 1 dose, Do not crush, chew, cut, dissolve, open or otherwise manipulate tablet/capsule. Given 02/14/2023 7:55 AM CDT 40 mEq potassium, sodium phosphates (PHOS-NAK) 280-160-250 mg packet 2 packet 2 packet, oral, 3 times daily before meals, First dose on Tue02/11/23 at 2200, Each packet contains elemental phosphorus 250 mg (8 mmol), potassium 280 mg (7.1 mEq), and sodium 160 mg (6.9 mEq). Given 02/15/2023 12:03 PM CDT 2 packet s Given 02/15/2023 9:38 AM CDT 2 packets Given 02/14/2023 4:24 PM CDT 2 packets rosuvastatin (CRESTOR) tablet 20 mg 20 mg, oral, Nightly, First dose on Tue02/14/23 at 2100 Given 02/14/2023 9:43 PM CDT 20 mg senna-docusate (PERICOLACE) 8.6-50 mg per tablet 2 tablet 2 tablet, oral, 2 times daily PRN, constipation, Starting on Tue02/11/23 at 1755 sodium chloride 0.45% infusion 100 mL/hr, intravenous, Continuous, Starting on Tue02/10/23 at 1701, Decrease rate to 100 mL/hr when blood glucose less than 250 mg/dL. Rate/Dose Verify 02/11/2023 10:18 PM CDT 100 mL/hr 100 mL/hr Rate/Dose Verify 02/11/2023 9:01 PM CDT 100 mL/hr 100 mL/ hr Rate/Dose Verify 02/11/2023 7:29 PM CDT 100 mL/hr 100 mL/ hr sodium chloride 0.9% bolus 1,000 mL 1,000 mL, intravenous, at 1,000 mL/hr, Administer over 1 Hours, Once, On Tue02/10/23 at 1519, For 1 dose New Bag 02/10/2023 4:28 PM CDT 1,000 mL 1000 mL/hr sodium chloride 0.9% bolus 1,000 mL 1,000 mL, intravenous, Once, On Liya 02/10/23 at 1644, For 1 dose New Bag 02/10/2023 4:49 PM CDT 1,000 mL documented in this encounter Discontinued Medications Medication Sig Discontinue Reason Start Date End Da te insulin glargine 100 unit/mL (3 mL) pen for injectionIndications:T ype 2 diabetes mellitus with hyperglycemia, without long-term current use of insulin (HCC) Inject 10 Units under the skin daily Stop Taking at Discharge 02/08/2023 02/15/2023 documented as of this encounter Active and Recently Administered Medications Times are shown in CDT. Scheduled Medication Order 02/13/2023 02/14/2023 02/15/2023 enoxaparin (LOVENOX) syringe 40 mg 40 mg, subcutaneous, Daily (for enoxaparin), First dose on Tue02/11/23 at 2100, Indications: VTE Prophylaxis 2040 (Given - Provider: Day Morley RN) 2143 (Not Given - Provider: Maria Eugenia Morgan, YUDELKA - Reason: Patient/family refused) fenofibrate nanocrystallized (TRICOR) tablet 145 mg 145 mg, oral, Daily, First dose on 02/12/23 at 1830 0802 (Given - Provider: Marcos Yousif RN) 0749 (Given - Provider: Luca Gama, YUDELKA) 0938 (Given - Provider: Catherine Coker, YUDELKA) insulin glargine (LANTUS, SEMGLEE) 100 unit/mL injection 75 Units 75 Units, subcutaneous, Nightly, First dose (after last modification) on 02/13/23 at 2100, Do not mix with other insulins 2040 (Given - Provider: Day Morley RN) 2141 (Given - Provider: Maria Eugenia Morgan, YUDELKA) insulin lispro (HumaLOG, ADMELOG) 100 unit/mL injection 0-10 Units 0-10 Units, subcutaneous, 3 times daily with meals, First dose on 02/13/23 at 0800, Blood glucose mg/dL: 149 or less: No insulin 150-199: add 2 unit 200-249: add 4 units 250-299: add 6 units 300-349: add 8 units and notify physician for adjustment of insulin orders. 350-399: add 10 units and notify physician for adjustment of insulin orders. Over 400: Notify physician for adjustment of insulin orders. Do NOT hold for NPO Status, Indications: Diabetes Mellitus 0802 (Given - Provider: Marcos Yousif RN)1155 (Given - Provider: Marcos Yousif RN)1919 (Not Given - Provider: Marcos Yousif RN - Reason: Order parameters not met) 0759 (Not Given - Provider: Luca Gama RN - Reason: Order parameters not met - Comment: [phone] (Given - Provider: Luca Gama RN - Comment: [phone] (Given - Provider: Luca Gama RN - Comment: [phone] 0835 (Given - Provider: Catherine Coker RN)1205 (Given - Provider: Catherine Coker RN) insulin lispro (HumaLOG, ADMELOG) 100 unit/mL injection 0-5 Units 0-5 Units, subcutaneous, Nightly, First dose on 02/13/23 at 2100, Blood glucose mg/dL: 149 or less: No insulin 150-199: add 1 unit 200-249: add 2 units 250-299: add 3 units 300-349: add 4 units and notify physician for adjustment of insulin orders. 350-399: add 5 units and notify physician for adjustment of insulin orders. Over 400: Notify physician for adjustment of insulin orders. Do NOT hold for NPO Status, Indications: Diabetes Mellitus 2007 (Not Given - Provider: Day Morley RN - Reason: Contraindicated - Comment: [phone] 214 (Given - Provider: Maria Eugenia Morgan RN) insulin lispro (HumaLOG, ADMELOG) 100 unit/mL injection 10 Units 10 Units, subcutaneous, 3 times daily with meals, First dose (after last modification) on 02/13/23 at 1200, If BG greater than or equal to 100 mg/dL, give dose with meals when tray arrives in the room. If BG less than 100 mg/dL or history of poor intake, give after meals. If patient eating less than 50% of meal, call MD for holding or reducing meal insulin dose. Hold prandial insulin if NPO, unable to eat, or if BG less than 70 mg/dL., Indications: Diabetes Mellitus 1156 (Given - Provider: Marcos Yousif RN)1630 (Given - Provider: Marcos Yousif RN) 0749 (Given - Provider: Luca Gama, YUDELKA)1145 (Given - Provider: Luca Gama RN)1624 (Given - Provider: Luca Gama RN) 0835 (Given - Provider: Catherine Coker, YUDELKA)1205 (Given - Provider: Catherine Coker RN) insulin lispro (HumaLOG, ADMELOG) 100 unit/mL injection 15 Units (COMPLETED) 15 Units, subcutaneous, Once, On 02/13/23 at 0930, For 1 dose 0912 (Given - Provider: Marcos Yousif RN) insulin lispro (HumaLOG, ADMELOG) 100 unit/mL injection 5 Units (COMPLETED) 5 Units, subcutaneous, Once, On 02/13/23 at 1200, For 1 dose, Indications: with lunch once 1156 (Given - Provider: Marcos Yousif RN) insulin lispro (HumaLOG, ADMELOG) 100 unit/mL injection 6 Units (CANCELED) 6 Units (rounded from 5.6523 Units = 0.083 Units/kg ? 68.1 kg), subcutaneous, 3 times daily with meals, First dose on 02/13/23 at 0800, If BG greater than or equal to 100 mg/dL, give dose with meals when tray arrives in the room. If BG less than 100 mg/dL or history of poor intake, give after meals. If patient eating less than 50% of meal, call MD for holding or reducing meal insulin dose. Hold prandial insulin if NPO, unable to eat, or if BG less than 70 mg/dL., Indications: Diabetes Mellitus 0803 (Given - Provider: Marcos Yousif RN) insulin NPH (HumuLIN N, NovoLIN N) 100 unit/mL injection 20 Units (COMPLETED) 20 Units, subcutaneous, Once, On 02/13/23 at 0930, For 1 dose 0912 (Given - Provider: Marcos Yousif RN) magnesium sulfate 2 g/50 mL in water (premix) 2 g (COMPLETED) 2 g, intravenous, Administer over 60 Minutes, Once, On Tue02/14/23 at 0830, For 1 dose 0755 (New Bag - Provider: Luca Gama RN) pantoprazole (PROTONIX) 4 mg/mL injection 40 mg (CANCELED) 40 mg, intravenous, Administer over 2 Minutes, Daily, First dose (after last reorder) on Tue02/11/23 at 0900, For IV Push administration for adults- 40 mg vial: add 10 mL of sodium chloride 0.9% to achieve a final concentration of 4 mg/mL, Indications: Treatment of Non-Bleeding Gastric Disorder 0803 (Given - Provider: Marcos Yousif RN) 0749 (Given - Provider: Luca Gama RN) 0836 (Given - Provider: Catherine Coker, YUDELKA) pantoprazole DR (PROTONIX) extended release tablet 40 mg 40 mg, oral, 2 times daily, First dose on Tue02/15/23 at 1100, Do not crush, chew, cut, dissolve, open or otherwise manipulate tablet/capsule., Indications: Stress Ulcer Prophylaxis 1209 (Not Given - Provider: Catherine Coker RN - Reason: Other) potassium chloride ER (KLOR-CON) extended release tablet 40 mEq (COMPLETED) 40 mEq, oral, Once, On Tue02/14/23 at 0830, For 1 dose, Do not crush, chew, cut, dissolve, open or otherwise manipulate tablet/capsule. 0755 (Given - Provider: Luca Gama RN) potassium, sodium phosphates (PHOS-NAK) 280-160-250 mg packet 2 packet 2 packet, oral, 3 times daily before meals, First dose on Tue02/11/23 at 2200, Each packet contains elemental phosphorus 250 mg (8 mmol), potassium 280 mg (7.1 mEq), and sodium 160 mg (6.9 mEq). 0802 (Given - Provider: Marcos Yousif RN)1157 (Given - Provider: Marcos Yousif RN)1700 (Given - Provider: Marcos Yousif RN) 0749 (Given - Provider: Luca Gama RN)1145 (Given - Provider: Luca Gama RN)1624 (Given - Provider: Luca Gmaa RN) 0938 (Given - Provider: Catherine Coker, YUDELKA)1203 (Given - Provider: Catherine Coker, YUDELKA) rosuvastatin (CRESTOR) tablet 20 mg 20 mg, oral, Nightly, First dose on 02/14/23 at 2100 2143 (Given - Provider: Maria Eugenia Morgan RN) Continuous Medication Order 02/13/2023 02/14/2023 02/15/2023 insulin regular (HumuLIN R, NovoLIN R) 100 Units in sodium chloride 0.9% 100 mL (1 Units/mL) infusion (CANCELED) 0-30 Units/hr (0-30 mL/hr), 1 units/mL, intravenous, Titrated, Starting on Liya 02/10/23 at 1701, Until 02/13/23 at 0716, Indications: diabetic ketoacidosis, NON-WEIGHT BASED DOSING Do NOT administer insulin bolus or infusion until K greater than 3.5 mmol/L. Initial Rate: : 6.5 units/hour. (0.1 units/kg/hr- max 10 units per hour) Blood Glucose (BG) Decreasing OR Same as Last Value BG less than 100 mg/dL: - Hold insulin infusion and notify MD. Do NOT hold infusion for more than 1 hour. Give D10 250mL IVPB over 15minutes (if BG <50mg/dL and patient has an altered level of consciousness give D50 (25gm) IV Push over 2 minutes instead of D10). - Check BG Q15 minutes and continue treatment until BG >100mg/dL. - Restart Insulin Drip at 50% of the prior IV rate when BG is >100mg/dL. Minimum infusion rate of 1 unit/hour. - Contact MD to determine if the D5W rate should be increased above the 100mL/hour rate. BG 100 - 150 mg/dL: - If BG decreasing by 30mg/dL/hour or more - decrease insulin drip by 50% and call MD. - If BG decreasing by less than 30mg/dL/hour - maintain current drip rate BG 151 - 200 mg/dL: - Add D5W IVPB to current fluid orders at 100mL/hour (if not already done), call MD - If BG decreasing by 76 mg/dL/hour or more - decrease insulin drip by 50% - If BG decreasing by 50-75 mg/dL/hour - decrease insulin drip by 25% - If BG decreasing by less than 50 mg/dL/hour - maintain current drip rate BG 201-250 mg/dL: - Add D5W IVF to current fluid orders at 100mL/hour (if not already done), call MD. - If BG decreasing by 76 mg/dL/hour or more - decrease insulin drip by 50% - If BG decreasing by 30-75 mg/dL/hour - maintain current drip rate - IF BG decreasing less than 30 mg/dL/hour - increase insulin drip by 25% BG greater than 250 mg/dL: - If BG decreasing by greater than 200 mg/dL/hour - decrease drip by 50% - If BG decreasing by 76-199 mg/dL/hour - decrease drip by 25% - If BG decreasing by 51-75 mg/dL/hour - maintain current drip rate. - If BG decreasing by less than 50 mg/dL/hour - increase insulin drip by 25% Blood Glucose (BG) Increasing BG less than 100 mg/dL: - Hold insulin infusion and notify MD. Do NOT hold infusion for more than 1 hour. Give D10 250mL IVPB over 15minutes (if BG <50mg/dL and patient has an altered level of consciousness give D50 (25gm) IV Push over 2 minutes instead of D10). - Check BG Q15 minutes and continue treatment until BG >100mg/dL., - Restart Insulin Drip at 50% of the prior IV rate when BG is >100mg/dL. Minimum infusion rate of 1unit/hour. - Contact MD to determine if the D5W rate should be increased above the 100mL/hour rate. BG 100 - 150 mg/dL: - If patient currently on insulin drip, maintain current rate. - If insulin drip currently held, restart at 50% of the last drip rate. Minimum infusion rate of 1 unit/hr. BG 151 - 200 mg/dL: - Maintain current drip rate BG 201 - 250 mg/dL: - Increase insulin drip by 25% BG greater than 250 mg/dL: - Increase insulin drip by 50% When adjusting drip rate, round changes to the nearest 0.5 units/hour increment For Type I Diabetics or equivalent, Do NOT discontinue drip until insulin maintenance regimen is implemented When new IV tubing is used, completely prime the tubing. Once primed, waste an additional 20 ml of insulin infusion using the IV pump prior to connecting to patient., STAT 0005 (Hold - Provider: Susie Hutton RN - Reason: Order parameters not met)0456 (Restarted - Provider: Susie Hutton RN)0614 (Rate/Dose Change - Provider: Susie Hutton RN)0707 (New Bag - Provider: Marcos Yousif, YUDELKA)0716 (Stopped - Provider: Marcos Yousif RN) PRN Medication Order 02/13/2023 02/14/2023 02/15/2023 acetaminophen (TYLENOL) tablet 650 mg 650 mg, oral, Every 6 hours PRN, 1st line for pain, Starting on Tue02/11/23 at 0652, Indications: Pain dextrose (D10W) 10% bolus 250 mL(Linked Group 1) 250 mL, intravenous, at 1,000 mL/hr, Administer over 15 Minutes, Every 15 min PRN, blood glucose less than 70 mg/dL and UNABLE to swallow/take PO glucose/juice., Starting on 02/13/23 at 0711, After treatment for hypoglycemia, recheck BG followed [...] glucose less than 70 mg/dL, Starting on 02/13/23 at 0711, If patient is alert and able to [...] Call MD for each episode of hypoglycemia. RN ADVICE STATES GLUTOSE-15 CONTAINS GLUCOSE 40% W/W (50% W/V), Indications: hypoglycemic disorder glucagon injection 1 mg 1 mg, intramuscular, Every 30 min PRN, low blood sugar, blood glucose less than 70 mg/dL AND no IV access AND unable to take PO glucose/juice., Starting on Tue02/13/23 at 0711, After Glucagon is administered, position patient on [...] 1 mL SWFI. Use immediately following reconstitution. ondansetron (ZOFRAN) injection 4 mg 4 mg, intravenous, Administer over 2 Minutes, Every 4 hours PRN, nausea, vomiting, Starting on Tue02/11/23 at 0400 senna-docusate (PERICOLACE) 8.6-50 mg per tablet 2 tablet 2 tablet, oral, 2 times daily PRN, constipation, Starting on Tue02/11/23 at 1755 Linked Groups Order Group 1: dextrose (GLUTOSE) 40 % gel 15 gJump to med 15 g, oral, Every 15 min PRN, low blood sugar, blood glucose less than 70 mg/dL, Starting on Tue02/13/23 at 0711, If patient is alert and able to [...] Call MD for each episode of hypoglycemia. RN ADVICE STATES GLUTOSE-15 CONTAINS GLUCOSE 40% W/W (50% W/V), Indications: hypoglycemic disorder Or dextrose (D10W) 10% bolus 250 mLJump to med 250 mL, intravenous, at 1,000 mL/hr, Administer over 15 Minutes, Every 15 min PRN, blood glucose less than 70 mg/dL and UNABLE to swallow/take PO glucose/juice., Starting on 02/13/23 at 0711, After treatment for hypoglycemia, recheck BG followed by treatment every 15 minutes until the BG is greater than 100 mg/dL. Then check BG 1 hour post treatment. If BG is less than 100 mg/dL, repeat Q15 minute BG checks and treatment. Call MD for each episode of hypoglycemia., Indications: hypoglycemic disorder documented in this encounter Orders Medications Ordered That Enrrique ht Not Have Been Administered Count Last Ordered Date First Ordered Date pantoprazole DR (PROTONIX) e xtended release tablet 40 mg 1 02/15/2023 dextrose (D10W) 10% bolus 250 mL 3 02/14/20 23 02/10/2023 dextrose (GLUTOSE) 40 % gel 15 g 2 02/14/20 23 02/12/2023 glucagon injection 1 mg 2 02/13/202301/25 Lactated Ringer's (LR) bolus 1,000 mL 1 sodium bicarbonate 8.4 % (1 mEq/mL) injection - ADS Override Pull 1 02/13/2023 insulin glargine (LANTUS, SE MGLEE) 100 unit/mL injection 75 Units 1 02/12/2023 insulin lispro (HumaLOG, ADM ELOG) 100 unit/mL injection 0-10 Units 1 02/12/2023 insulin lispro (HumaLOG, ADM ELOG) 100 unit/mL injection 0-5 Units 1 02/12/2023 insulin lispro (HumaLOG, ADM ELOG) 100 unit/mL injection 15 Units 1 02/11/2023 ondansetron (ZOFRAN) injection 4 mg 1 02/11 senna-docusate (PERICOLACE) 8.6-50 mg per tablet 2 tablet 1 02/11/2023 magnesium sulfate 2 g/50 mL in water (premix) 2 g 1 02/10/2023 potassium chloride 40 mEq/52 0 mL in sodium chloride 0.9% (premix) 40 mEq 1 02/10/2023 sodium chloride 0.9% bolus 1,334 mL 1 02/10 Lab Orders Without Results Count Last Ordered D ate First Ordered Date POCT GLUCOSE DEVICE 24 02/14/2023 02/11/20 Diet Count Last Ordered Date First Orde red Date ADULT DISCHARGE DIET 1 02/15/2023 Nursing Count Last Ordered Date First Orde red Date DISCHARGE ACTIVITY 1 02/15/2023 FOLLOW UP WITH ESTABLISHED PROVIDER 1 02/15 Consult Count Last Ordered Date First Orde red Date IP CONSULT TO NUTRITION SERVICES 1 02/12/20 Admission Count Last Ordered Date First Orde red Date ADMIT TO INPATIENT 1 02/10/2023 Transfer Count Last Ordered Date First Orde red Date TRANSFER PATIENT TO NEW UNIT 1 02/14/2023 ED TO FLOOR BED REQUEST 1 02/10/2023 Discharge Count Last Ordered Date First Orde red Date DISCHARGE PATIENT 1 02/15/2023 documented in this encounter Care Teams Material Worker Relationship Specialty Start Date End Date Lemuel Frost MD [address] [place] [id number] PCP - General Family Medicine 10/09/21 03/09/23 documented as of this encounter
--- OUTSIDE RECORDS SUMMARY | 2024-10-02 02:35 | XMS_ITS | Encounter Summary ---
Author Organization [facility] Address 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 Would you like to do a p2p or change to treadmill stress test [phone] Tracking # [id number] documented in this encounter Plan of Treatment Not on file documented as of this encounter Visit Diagnoses Diagnosis Chest pain, unspecified type- Primary documented in this encounter Care Teams Engineering Scientist Relationship Specialty Start Date End Date Lemuel Frost MD [address] [place] [id number] PCP - General Family Medicine 10/09/21 03/09/23 documented as of this encounter
--- OUTSIDE RECORDS SUMMARY | 2024-10-02 02:35 | XMS_ITS | Encounter Summary ---
Author Organization [facility] Address [address] [place] [id number] Care Team Providers Care Tunneling Machine Operator Name Role Phone Lemuel Frost MD Primary Care Provider + Reason for Visit * Cardiology (Routine) - Closed Specialty Diagnoses / Procedures Referred By Contac t Referred To Contact Diagnoses Palpitations Procedures Event Monitor, 30 Day Event David Gilliland MD Phone: tel: fax: External Order Referral ID Status Reason Start Date Expiration Date Visits Re quested Visits Authorized [id number] Closed 02/17/2022 03/19/2023 1 1 Encounter Details Date Type Department Care Team (Late st Contact Info) Description 02/17/2022 11:15 AM CDT Ancillary Procedure [facility] Medical [facility] Cardiology [address] [place] [phone] Palpitations Social History Tobacco Use Types Packs/Day Years [...] on file Legal Sex Male 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.] day event monitor report. David Gilliland MD, [facility], [facility] 02/17/22 David Gilliland MD CV C[facility]IAC [facility] Final Result documented in this encounter Visit Diagnoses Diagnosis Palpitations documented in this encounter Care Teams Tunneling Machine Operator Relationship Specialty Start Date End Date Lemuel Frost MD [address] [place] [id number] PCP - General Family Medicine 10/09/21 03/09/23 documented as of this encounter
--- OUTSIDE RECORDS SUMMARY | 2024-10-02 02:35 | XMS_ITS | Encounter Summary ---
Author Organization [facility] Address [address] [place] [address] Care Team Providers Care Scalloper Name Role Phone Lemuel Frost MD Primary Care Provider + Encounter Details Date Type Department Care Team (Late st Contact Info) Description 12/22/2021 Telephone [facility] Medical [facility] Cardiology [address] [place] [address] David Gilliland MD [address] [facility] [address] [place] [address] Social History Tobacco Use Types Packs/Day Years [...] on file Legal Sex Male 9:22 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 * Telephone Encounter - Renetta Avila - 12/22/2021 4:46 PM CDT Called patient back and NA. Left voice mail to call back and to go to ER if symptoms continue. * Telephone Encounter - David Gilliland MD - 12/22/2021 2:27 PM CDT Can we please expedite his echo and event monitor? He is passing out. If keeps happening told to [facility] ER. * Telephone Encounter - David Gilliland MD - 12/22/2021 2:18 PM CDT Called and left message. * Telephone Encounter - Renetta Avila - 12/22/2021 11:16 AM CDT Pt said he passed out and Tuesday and his headaches, and dizziness is increasing. He said his heart also was racing last night, but he did not get a pulse. Pt can be reached at [phone]. Told pt if he needed to go to ER to go ahead. He wanted to hear from Dr. Gilliland. documented in this encounter Plan of Treatment Not on file documented as of this encounter Visit Diagnoses Not on filedocumented in this encounter Care Teams Scalloper Relationship Specialty Start Date End Date Lemuel Frost MD [address] [place], [place] [phone] (Work) PCP - General Family Medicine 10/09/21 03/09/23 documented as of this encounter
== END 2024-09-25 03:17 | disposition left against medical advice (07) ==
PROVIDERS: Physician Assistant; Emergency Provider Emergency Medicine; PCP Physician Assistant
DX: K85.90 Acute pancreatitis without necrosis or infection, unspecified (principal); D72.829 Elevated white blood cell count, unspecified; E11.9 Type 2 diabetes mellitus without complications; K76.89 Other specified diseases of liver; R91.1 Solitary pulmonary nodule
CPT/HCPCS: 36415; 74177; 80053; 81001; 83690; 84484; 85025; 93005; 96361; 96374; 96375; 99284; A9270; J1171; J7030; Q9967